=== PATIENT | female | born 1940 | race Caucasian/White ===

== ENCOUNTER 2018-03-12 13:06 | Emergency (ER) | payer MEDICARE, OTHER ==
[~2018-03-12] VITALS: Ht 152.4 cm; Wt 77.6 kg
[2018-03-12 13:39] LABS: BASOPHILS % (AUTO) 0 % (0-10); EOSINOPHILS # (AUTO) 0.3 10^3/uL (0.0-0.3); EOSINOPHILS % (AUTO) 2 % (0-10); HEMATOCRIT 30 % (35-52); LYMPHOCYTES % (AUTO) 21 % (12-44); MEAN CORPUSCULAR HEMOGLOBIN 29 PG (25-34); MEAN CORPUSCULAR HGB CONC 33 G/DL (32-36); MEAN CORPUSCULAR VOLUME 86 FL (80-99); MEAN PLATELET VOLUME 8.7 FL (7.4-10.4); MONOCYTES # (AUTO) 1.2 X 10^3 (0.0-1.0); MONOCYTES % (AUTO) 8 % (0-12); NEUTROPHILS % (AUTO) 69 % (42-75); PLATELET COUNT 374 10^3/uL (130-400); RED CELL DISTRIBUTION WIDTH 13.8 % (10.0-14.5); WHITE BLOOD COUNT 14.5 10^3/uL (4.3-11.0)
[2018-03-12 13:51] LABS: ALANINE AMINOTRANSFERASE 19 U/L (0-55); ALBUMIN 4.1 GM/DL (3.2-4.5); ALKALINE PHOSPHATASE 64 U/L (40-136); BILIRUBIN,TOTAL 0.6 MG/DL (0.1-1.0); BUN/CREATININE RATIO 23; CALCIUM 9.7 MG/DL (8.5-10.1); CARBON DIOXIDE 30 MMOL/L (21-32); CHLORIDE 91 MMOL/L (98-107); CREATININE SERUM 1.47 MG/DL (0.60-1.30); GFR ESTIMATED 35; GLUCOSE 92 MG/DL (70-105); MAGNESIUM 2.2 MG/DL (1.8-2.4); POTASSIUM 4.5 MMOL/L (3.6-5.0); SODIUM 130 MMOL/L (135-145); TOTAL PROTEIN 7.2 GM/DL (6.4-8.2)
[2018-03-12 14:15] LABS: FREE T4 (FREE THYROXINE) 1.12 NG/DL (0.70-1.48)
--- NOTE | 2018-03-12 14:16 | Diagnostic Imaging Report ---
INDICATION: Trouble walking with legs swelling over the past several days. TECHNIQUE: Two view chest at 2:15 PM. CORRELATION STUDY: None. FINDINGS: There are post sternotomy changes. The heart size is borderline enlarged. The vasculature is slightly prominent but without evidence for overt failure. There is an asymmetrically elevated left diaphragm with left basilar lung volume loss. No suggestion for infiltrate. Apparent postoperative change of the medial left lung with a suture line and asymmetric pleural thickening. There are advanced degenerative changes with slightly accentuated thoracic kyphotic curvature. IMPRESSION: 1. Post sternotomy changes. Borderline heart size and vasculature without evidence for overt failure. 2. Asymmetrically elevated left diaphragm with left lung volume loss. Dictated by: Dictated on workstation # [id number]
[2018-03-12 14:21] LABS: BAND NEUTROPHILS 1 %; BASOPHILS % (MANUAL) 0 %; EOSINOPHILS % (MANUAL) 1 %; LYMPHOCYTES % (MANUAL) 26 %; MONOCYTES % (MANUAL) 9 %; NEUTROPHILS % (MANUAL) 63 %; RBC MORPH NORMAL
[2018-03-12 14:26] LABS: BILIRUBIN,URINE NEGATIVE (NEGATIVE); CLARITY,URINE CLEAR; COLOR,URINE YELLOW; GLUCOSE, URINE (UA) NEGATIVE (NEGATIVE); KETONES,URINE NEGATIVE (NEGATIVE); LEUKOCYTE ESTERASE ,URINE 2+ (NEGATIVE); NITRITE,URINE NEGATIVE (NEGATIVE); PH,URINE 6 (5-9); PROTEIN,URINE NEGATIVE (NEGATIVE); UROBILINOGEN,URINE NORMAL (NORMAL)
[2018-03-12 14:37] LABS: BACTERIA,URINE TRACE /HPF; RBC,URINE 0-2 /HPF
--- NOTE | 2018-03-12 15:25 | ED General ---
General Chief Complaint: Back Problems Stated Complaint: FEET SWOLLEN,BACK PAIN Nursing Triage Note: ARRIVED VIA WC TO ROOM 08. COMPLAINS OF CHRONIC BACK PAIN AND SWELLING OF FEET. STATES SHE HAS BEEN TO [facility] SEVERAL TIMES AND THEY DO NOT HELP HER ET SHE WANTS FIXED. 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 She reports being seen in the clinic at Dr. Garcia's office at [facility] in [place] [facility] as well as having multiple ER visits over the past several weeks. She states not much was done after those visits. She sees Dr. Garcia for primary care and Dr. Basurto for cardiology. She has had some chest pain in recent weeks but denies any chest pain today. Allergies and Home Medications Allergies Coded Allergies: No Known Drug Allergies (Unverified , 03/12/18) Home Medications Cephalexin 500 Mg Capsule, 500 MG PO TID Prescribed by: ANNITA TAYLOR on 03/12/18 1610 Patient Home Medication List Home Medication List Reviewed: Yes Review of Systems Constitutional: see HPI EENTM: no symptoms reported Respiratory: no symptoms reported Cardiovascular: see HPI Gastrointestinal: no symptoms reported Musculoskeletal: see HPI Skin: no symptoms reported Psychiatric/Neurological: No Symptoms Reported Hematologic/Lymphatic: No Symptoms Reported Immunological/Allergic: no symptoms reported Past Hrobchu-Ovlsml-Hmpvtj Hx Patient Social History Alcohol Use: Denies Use Recreational Drug Use: No Smoking Status: Former Smoker Recent Foreign Travel: No Contact w/Someone Who Travel: No Recent Infectious Disease Expo: No Recent Hopitalizations: Yes (ER VISITS) Past Medical History Surgeries: Yes CABG, Hysterectomy Respiratory: Yes Emphysema Cardiac: Yes (congestive heart failure) Coronary Artery Disease, Heart Attack, 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 Neurological: Yes (UNKNOWN IF HAD A STROKE) : No 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 Disorders: No Gastrointestinal: No Musculoskeletal: No Endocrine: Yes Diabetes, Insulin dep HEENT: No Cancer: No Psychosocial: No Integumentary: No Physical Exam Vital Signs Vital Signs - First Documented 03/12/18 13:20 Temp 96.7 Pulse 63 Resp 18 B/P (MAP) 126/80 (95) Pulse Ox 98 O2 Delivery Nasal Cannula Capillary Refill : Less Than 3 Seconds General Appearance: No Apparent Distress, WD/WN HEENT: PERRL/EOMI, Normal ENT Inspection, Other (teeth are absent) Neck: Normal Inspection Respiratory: Lungs Clear, Normal Breath Sounds, No Accessory Muscle Use, No Respiratory Distress, Decreased Breath Sounds (diminished in the bases) Cardiovascular: Regular Rate, Rhythm, No Murmur, Other (significant lower extremity edema equal bilaterally) Gastrointestinal: Normal Bowel Sounds, Non Tender, Soft Extremity: Non Tender, Pedal Edema, Swelling Neurologic/Psychiatric: Alert, Oriented x3, No Motor/Sensory Deficits, Normal Mood/Affect, knockdown worker II-XII Norm as Tested Skin: Normal Color, Warm/Dry, Other (chronic skin changes with darkening of the lower legs and feet bilaterally) Progress/Results/Core Measures Suspected Sepsis Recent Fever Within 48 Hours: No Infection Criteria Present: None New/Unexplained Altered Menta: No Sepsis Screen: No Definite Risk SIRS Temperature:96.7 Pulse: 63 Respiratory Rate: 18 Laboratory Tests 03/12/18 10:20: White Blood Count 14.5H Blood Pressure 126 /80 Mean: 95 Laboratory Tests 03/12/18 10:20: Creatinine 1.47H, Platelet Count 374, Total Bilirubin 0.6 Results/Orders Lab Results Laboratory Tests Test 03/12/18 10:00 03/12/18 10:02 03/12/18 10:20 03/12/18 14:20 Range/Units Thyroid Stimulating Hormone (TSH) 1.80 0.35-4.94 UIU/ML Free Thyroxine 1.12 0.70-1.48 NG/DL White Blood Count 14.5 H 4.3-11.0 10^3/uL Red Blood Count 3.50 L 4.35-5.85 10^6/uL Hemoglobin 10.0 L 11.5-16.0 G/DL Hematocrit 30 L 35-52 % Mean Corpuscular Volume 86 80-99 FL Mean Corpuscular Hemoglobin 29 25-34 PG Mean Corpuscular Hemoglobin Concent 33 32-36 G/DL Red Cell Distribution Width 13.8 10.0-14.5 % Platelet Count 374 130-400 10^3/uL Mean Platelet Volume 8.7 7.4-10.4 FL Neutrophils (%) (Auto) 69 42-75 % Lymphocytes (%) (Auto) 21 12-44 % Monocytes (%) (Auto) 8 0-12 % Eosinophils (%) (Auto) 2 0-10 % Basophils (%) (Auto) 0 0-10 % Neutrophils # (Auto) 10.0 H 1.8-7.8 X 10^3 Lymphocytes # (Auto) 3.0 1.0-4.0 X 10^3 Monocytes # (Auto) 1.2 H 0.0-1.0 X 10^3 Eosinophils # (Auto) 0.3 0.0-0.3 10^3/uL Basophils # (Auto) 0.0 0.0-0.1 10^3/uL Neutrophils % (Manual) 63 % Lymphocytes % (Manual) 26 % Monocytes % (Manual) 9 % Eosinophils % (Manual) 1 % Basophils % (Manual) 0 % Band Neutrophils 1 % Blood Morphology Comment NORMAL Sodium Level 130 L 135-145 MMOL/L Potassium Level 4.5 3.6-5.0 MMOL/L Chloride Level 91 L 98-107 MMOL/L Carbon Dioxide Level 30 21-32 MMOL/L Anion Gap 9 5-14 MMOL/L Blood Urea Nitrogen 34 H 7-18 MG/DL Creatinine 1.47 H 0.60-1.30 MG/DL Estimat Glomerular Filtration Rate 35 BUN/Creatinine Ratio 23 Glucose Level 92 70-105 MG/DL Calcium Level 9.7 8.5-10.1 MG/DL Magnesium Level 2.2 1.8-2.4 MG/DL Total Bilirubin 0.6 0.1-1.0 MG/DL Aspartate Amino Transf (AST/SGOT) 22 5-34 U/L Alanine Aminotransferase (ALT/SGPT) 19 0-55 U/L Alkaline Phosphatase 64 40-136 U/L Troponin I < 0.30 <0.30 NG/ML C-Reactive Protein High Sensitivity 2.65 H 0.00-0.50 MG/DL B-Type Natriuretic Peptide 38.6 <100.0 PG/ML Total Protein 7.2 6.4-8.2 GM/DL Albumin 4.1 3.2-4.5 GM/DL TSH [place] Testing 1.80 0.35-4.94 UIU/ML Urine Color YELLOW Urine Clarity CLEAR Urine pH 6 5-9 Urine Specific [place] 1.010 L 1.016-1.022 Urine Protein NEGATIVE NEGATIVE Urine Glucose (UA) NEGATIVE NEGATIVE Urine Ketones NEGATIVE NEGATIVE Urine Nitrite NEGATIVE NEGATIVE Urine Bilirubin NEGATIVE NEGATIVE Urine Urobilinogen NORMAL NORMAL MG/DL Urine Leukocyte Esterase 2+ H NEGATIVE Urine RBC (Auto) 1+ H NEGATIVE Urine RBC 0-2 /HPF Urine WBC 5-10 H /HPF Urine Squamous Epithelial Cells 2-5 /HPF Urine Crystals NONE /LPF Urine Bacteria TRACE /HPF Urine Casts NONE /LPF Urine Mucus NEGATIVE /LPF Urine Culture Indicated YES Test 03/12/18 15:14 03/12/18 16:07 Range/Units Glucometer 58 *L 137 H 70-110 MG/DL My Orders Orders - ANNITA ARAUZ MD BNP (03/12/18 13:32) Cbc With Automated Diff (03/12/18 13:32) Comprehensive Metabolic Panel (03/12/18 13:32) Hs C Reactive Protein (03/12/18 13:32) Magnesium (03/12/18 13:32) Thyroid Analyzer (03/12/18 13:32) Troponin I (03/12/18 13:32) Ua Culture If Indicated (03/12/18 13:32) Chest Pa/Lat (2 View) (03/12/18 13:32) Saline Lock/Iv-Start (03/12/18 13:32) Ekg Tracing (03/12/18 13:32) Monitor-Rhythm Ecg Trace Only (03/12/18 13:32) Thyroid Stimulating Hormone (03/12/18 13:34) Free T4 (Free Thyroxine) (03/12/18 13:34) Manual Differential (03/12/18 10:20) Triiodothryonine T3 Free (03/12/18 13:49) Ct Lumbar Spine Wo (03/12/18 13:51) Urine Culture (03/12/18 14:20) General/Regular (03/12/18 Lunch) Vital Signs/I&O 03/12/18 03/12/18 13:20 16:22 Temp 96.7 Pulse 63 68 Resp 18 18 B/P (MAP) 126/80 (95) 154/73 Pulse Ox 98 99 O2 Delivery Nasal Cannula Room Air Capillary Refill : Less Than 3 Seconds Blood Pressure Mean: 95 Progress Note : Progress Note Patient was thoroughly evaluated including CT of the lumbar spine. I discussed patient's complaints and history with her primary care provider, Dr. Garcia, and Allie [place]. Patient was found to have leukocytosis and urinary tract infection. She was started on Keflex. She was encouraged to follow up closely with her spray gun repairer and her primary care provider. She did have an episode of hypoglycemia which improved after eating. ECG Initial ECG Impression Date: Mar 12, 2018 Initial ECG Impression Time: 13:59 Initial ECG Rate: 61 Initial ECG Rhythm: Normal Sinus Initial ECG Intervals: Normal Initial ECG Impression: Normal Comment Normal sinus rhythm with no ST elevation or depression. No abnormal intervals or axis deviation. Diagnostic Imaging Diagonstic Imaging: Xray Plain Films/CT/US/NM/MRI: chest Comments Chest x-ray viewed by me and report reviewed. See report below: NAME: DARINEL MARTE [facility] REC#: [id number] PT STATUS: REG ER : 1940 PHYSICIAN: ANNITA ARAUZ MD ADMIT DATE: 03/12/18/ER Draft Date of Exam:03/12/18 CHEST PA/LAT (2 VIEW) INDICATION: Trouble walking with legs swelling over the past several days. TECHNIQUE: Two view chest at 2:15 PM. CORRELATION STUDY: None. FINDINGS: There are post sternotomy changes. The heart size is borderline enlarged. The vasculature is slightly prominent but without evidence for overt failure. There is an asymmetrically elevated left diaphragm with left basilar lung volume loss. No suggestion for infiltrate. Apparent postoperative change of the medial left lung with a suture line and asymmetric pleural thickening. There are advanced degenerative changes with slightly accentuated thoracic kyphotic curvature. IMPRESSION: 1. Post sternotomy changes. Borderline heart size and vasculature without evidence for overt failure. 2. Asymmetrically elevated left diaphragm with left lung volume loss. Dictated on workstation # [id number] Dict: 03/12/18 1409 Trans: 03/12/18 1415 [id number] Interpreted by: MARILIN HAN DO Departure Impression Primary Impression: Urinary tract infection Qualified Codes: N39.0 - Urinary tract infection, site not specified Additional Impressions: Chronic edema Lower extremity weakness Qualified Codes: R29.898 - Other symptoms and signs involving the musculoskeletal system Hypoglycemia Disposition: 01 HOME, SELF-CARE Condition: Improved Departure-Patient Inst. Decision time for Depature: 16:08 Referrals: JENNIFER GARCIA DO (PCP) Primary Care Physician Patient Instructions: Urinary Tract Infections in Adults Add. Discharge Instructions: Drink plenty of clear liquids. Continue your medications as previously prescribed. Complete your antibiotics as prescribed. Follow-up with your primary care provider as soon as possible. Review your urine culture results at that time. Also follow up with your spray gun repairer as soon as possible. Consider enrolling in the pulmonary rehabilitation program at [facility]. All discharge instructions reviewed with patient and/or family. Voiced understanding. Scripts Cephalexin (Keflex) 500 Mg Capsule 500 MG PO TID, #30 CAP Prov: ANNITA ARAUZ MD 03/12/18 ANNITA ARAUZ MD Mar 12, 2018 15:25
--- NOTE | 2018-03-12 15:37 | Diagnostic Imaging Report ---
PROCEDURE: CT lumbar spine without contrast. TECHNIQUE: Multiple contiguous axial images were obtained through the lumbar spine without the use of intravenous contrast. Sagittal and coronal reformations were then performed. INDICATION: Low back pain. Lower extremity weakness. COMPARISON: None. FINDINGS: There are five lumbar type vertebral bodies. Normal alignment. Vertebral body heights preserved. No fractures. Moderate diffuse degenerative endplate changes. No high-grade spinal canal narrowing is evident on this noncontrast exam. Disc space height loss and facet arthropathy result in scattered osseous neural foraminal narrowing. No high-grade osseous neural foraminal narrowing in the lumbar spine. Coarse atherosclerotic calcifications including a normal caliber abdominal aorta. The visualized abdominal and pelvic contents are otherwise unremarkable. IMPRESSION: 1. No acute CT findings in the lumbar spine. 2. Moderate degenerative endplate changes and facet arthropathy result in no appreciable high-grade neural impingement in the lumbar spine on this noncontrast exam. Dictated by: Dictated on workstation # [id number]
[2018-03-12] MEDS ORDERED: CEPH-507 PO (16:10)
[2018-03-12 16:22] VITALS: BP 154/73
== END 2018-03-12 16:14 | disposition home or self-care (01) ==
LOC: EDUNIT# 13:06 → ER 13:09
DX: N39.0 Urinary tract infection, site not specified (principal); R60.9 Edema, unspecified; R53.1 Weakness; R29.898 Other symptoms and signs involving the musculoskeletal system; J43.9 Emphysema, unspecified; E11.649 Type 2 diabetes mellitus with hypoglycemia without coma; I25.10 Atherosclerotic heart disease of native coronary artery without angina pectoris; I11.0 Hypertensive heart disease with heart failure; I50.9 Heart failure, unspecified; Z90.710 Acquired absence of both cervix and uterus; Z95.5 Presence of coronary angioplasty implant and graft; Z87.891 Personal history of nicotine dependence
CPT/HCPCS: 36415; 71046; 72131; 80053; 81000; 82962; 83735; 83880; 84439; 84443; 84481; 84484; 85007; 85027; 86141; 87088; 93005

== ENCOUNTER 2019-04-30 13:31 | Inpatient (IN) | payer MEDICARE, MEDICAID | END 2019-05-05 15:05 | disposition home or self-care (01) | LOC: ER 13:31 → 4TH 16:13 ==

== ENCOUNTER 2019-06-04 18:15 | Inpatient (IN) | payer MEDICARE, MEDICAID ==
[~2019-06-04] VITALS: Ht 304.8 cm; Wt 75.4 kg
[~2019-06-04 18:15] MED LIST: AMOX-358 PO; ATOR20TA66 PO; CEPH-507 PO; CHOL10003 PO; CYAN500T2 PO; DIPH25TA29 PO; FLUT16SP22 NS; FURO40TA4 PO; GABA-486 PO; GLIP5TAB13 PO; HYDR-3812 PO; IRON-17 PO; LEVO25TA2 PO; LORA-404 PO; LORA0.5T PO; MAGN400O7 PO; MAGN400T29 PO; MELO7.5T46 PO; POTA10TA10 PO; SENN-145 PO; SERT50TA9 PO; TRAZ-190 PO; UBID1CAP53 PO
[2019-06-04] MEDS ORDERED: LACTATED RINGERS 1,000 ML IV SCH (18:30)
[2019-06-04 18:33] LABS: BASOPHILS % (AUTO) 0 % (0-10); EOSINOPHILS # (AUTO) 0.2 10^3/uL (0.0-0.3); EOSINOPHILS % (AUTO) 2 % (0-10); HEMATOCRIT 28 % (35-52); HEMOGLOBIN 8.7 G/DL (11.5-16.0); LYMPHOCYTES # (AUTO) 3.1 X 10^3 (1.0-4.0); LYMPHOCYTES % (AUTO) 22 % (12-44); MEAN CORPUSCULAR HEMOGLOBIN 26 PG (25-34); MEAN CORPUSCULAR HGB CONC 31 G/DL (32-36); MEAN CORPUSCULAR VOLUME 82 FL (80-99); MEAN PLATELET VOLUME 8.3 FL (7.4-10.4); MONOCYTES # (AUTO) 1.1 X 10^3 (0.0-1.0); MONOCYTES % (AUTO) 8 % (0-12); NEUTROPHILS % (AUTO) 69 % (42-75); PLATELET COUNT 427 10^3/uL (130-400); RED CELL DISTRIBUTION WIDTH 14.9 % (10.0-14.5); WHITE BLOOD COUNT 14.4 10^3/uL (4.3-11.0)
--- OUTSIDE RECORDS SUMMARY | 2019-06-04 18:35 | XMS REPORT | Continuity of Care Document ---
Author Organization Unknown Address Unknown Allergies There is no data. Medications There is no data. Problems There is no data. Procedures There is no data. Results There is no data. Encounters ACCT No. Visit Date/Time Discharge Status Pt. Type Provider Facility Loc./Unit Complaint [id number] 05/27/2019 19:00:00 05/27/2019 23:59:00 DIS Outpatient Josh Navarro
[2019-06-04 18:41] LABS: BILIRUBIN,URINE NEGATIVE (NEGATIVE); CLARITY,URINE SLIGHTLY CLOUDY; COLOR,URINE YELLOW; GLUCOSE, URINE (UA) NEGATIVE (NEGATIVE); KETONES,URINE NEGATIVE (NEGATIVE); LEUKOCYTE ESTERASE ,URINE 3+ (NEGATIVE); NITRITE,URINE NEGATIVE (NEGATIVE); PH,URINE 5 (5-9); PROTEIN,URINE 3+ (NEGATIVE); UROBILINOGEN,URINE NORMAL (NORMAL)
[2019-06-04 18:45] LABS: INR 1.1 (0.8-1.4); PROTHROMBIN TIME PATIENT 14.5 SEC (12.2-14.7)
[2019-06-04] MEDS: CYCLOBENZAPRINE 10 MG (FLEXERIL) TAB PO SCH (18:46)
[2019-06-04 18:52] LABS: ALBUMIN 3.7 GM/DL (3.2-4.5); BILIRUBIN,TOTAL 0.3 MG/DL (0.1-1.0); CALCIUM 9.4 MG/DL (8.5-10.1); CREATININE SERUM 1.02 MG/DL (0.60-1.30); POTASSIUM 4.5 MMOL/L (3.6-5.0); TOTAL PROTEIN 7.9 GM/DL (6.4-8.2)
[2019-06-04 18:54] LABS: BACTERIA,URINE MODERATE /HPF; RBC,URINE TNTC /HPF; WBC,URINE TNTC /HPF
--- NOTE | 2019-06-04 18:56 | NUR ---
report given to MARIAM Dixon
[2019-06-04 19:08] LABS: BAND NEUTROPHILS 1 %; BASOPHILS % (MANUAL) 0 %; EOSINOPHILS % (MANUAL) 3 %; HYPOCHROMASIA SLIGHT; LYMPHOCYTES % (MANUAL) 25 %; MONOCYTES % (MANUAL) 5 %; NEUTROPHILS % (MANUAL) 66 %
--- NOTE | 2019-06-04 19:14 | NUR ---
pt resting on cart, updated on anticipated wait times. denies needs at this time.
--- NOTE | 2019-06-04 19:41 | ED Back Pain ---
General Chief Complaint: Abdominal/GI Problems Stated Complaint: ABD PAIN Nursing Triage Note: Pt to ED via EMS from longterm. Pt c/o abdominal and back pain. halfway reports pt is currently being treated for a UTI. Pt is taking levaquin. halfway reports pt's white count is 17,000. Pt was given to 5mg hydrocodone at approximately 1600. Nursing Sepsis Screen: No Definite Risk Source of Information: Patient, EMS, Shelter Records Exam Limitations: No Limitations History of Present Illness Date Seen by Provider: Jun 04, 2019 Time Seen by Provider: 18:10 Initial Comments Patient presents to ER by EMS with chief complaint that at the longterm she had been treated outpatient for a bladder infection with Levaquin. The culture did apparently demonstrate Levaquin to be an appropriate antibiotic. However she continued to have a fever 2 days ago and labs were drawn showing a white count of 17,000 so she was ordered to come to the ER because she's having intense back spasms of pain and some abdominal discomfort. She is afebrile per EMS. Eating drinking normally. Urinating with moderate discomfort. No blood in the urine. At 1600 she was given 2 hydrocodone tablets unknown strength She did not receive much relief from the spasming in her back. Allergies and Home Medications Allergies Coded Allergies: shrimp (Verified Allergy, Unknown, 04/30/19) Home Medications Amoxicillin/Potassium Clav 1 Each Tablet, 1 EACH PO twice a day Prescribed by: SMITA BATES on 05/05/19 1221 Atorvastatin Calcium 20 Mg Tablet, 20 MG PO DAILY, (Reported) Cholecalciferol (Vitamin D3) 1,000 Unit Tablet, 2 TAB PO DAILY, (Reported) Cyanocobalamin (Vitamin B-12) 500 Mcg Tablet, 500 MCG PO DAILY, (Reported) Diphenhydramine HCl 25 Mg Tablet, 12.5 MG PO HS, (Reported) TAKES 1/2 (25MG) TABLET Fluticasone Propionate 16 Gm [place].susp, 1 SPRAY NS DAILY, (Reported) Furosemide 40 Mg Tablet, 40 MG PO DAILY, (Reported) Gabapentin 100 Mg Capsule, 200 MG PO HS, (Reported) TAKES 2 (100MG) CAPSULES Glipizide 5 Mg Tablet, 2.5 MG PO DAILY, (Reported) TAKES 1/2 (5MG) TABLET Hydrocodone/Acetaminophen 1 Each Tablet, 1-2 TAB PO Q4H PRN for PAIN-MODERATE, (Reported) Iron Ag,Ps/C/Fa6/B12/Zn/SA/Sto 1 Each Tablet, 150 MG PO DAILY, (Reported) Levothyroxine Sodium 25 Mcg Tablet, 25 MCG PO DAILY, (Reported) Lorazepam 0.5 Mg Tablet, 0.5 MG PO DAILY, (Reported) Magnesium Hydroxide 400 Mg/5 Ml Oral.susp, 30 ML PO DAILY PRN for CONSTIPATION- 7TH LINE, (Reported) Magnesium Oxide 400 Mg Tablet, 400 MG PO DAILY, (Reported) Meloxicam 7.5 Mg Tablet, 7.5 MG PO DAILY, (Reported) Potassium Chloride 10 Meq Tablet.er, 10 MEQ PO BID, (Reported) Sennosides/Docusate Sodium 1 Each Tablet, 3 TAB PO DAILY, (Reported) Sertraline HCl 50 Mg Tablet, 50 MG PO DAILY, (Reported) Trazodone HCl 100 Mg Tablet, 100 MG PO HS, (Reported) Ubidecarenone/Vit E Acetate 1 Each Capsule, 100 MG PO DAILY, (Reported) Patient Home Medication List Home Medication List Reviewed: Yes Review of Systems Constitutional: No chills; fever EENTM: No ear discharge, No ear pain Respiratory: No cough, No short of breath Cardiovascular: No chest pain, No edema Gastrointestinal: abdominal pain (Suprapubic), constipation (2 days since the last bowel movement); No diarrhea, No nausea Genitourinary: No discharge; dysuria Musculoskeletal: back pain; No joint pain Skin: No pruritus, No rash Past Qruzyrj-Vjwfpm-Dbdwyg Hx Patient Social History Alcohol Use: Denies Use Recreational Drug Use: No 2nd Hand Smoke Exposure: No Recent Foreign Travel: No Contact w/Someone Who Travel: No Recent Infectious Disease Expo: No Recent Hopitalizations: Yes (ER VISITS) Past Medical History Surgeries: Yes CABG, Hysterectomy Respiratory: Yes Emphysema Cardiac: Yes (congestive heart failure) Coronary Artery Disease, Heart Attack, 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 Neurological: Yes (UNKNOWN IF HAD A STROKE) 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 Disorders: No Gastrointestinal: No Musculoskeletal: No Endocrine: Yes Diabetes, Insulin dep HEENT: No Cancer: No Psychosocial: No Integumentary: No Family Medical History No Pertinent Family Hx Physical Exam Vital Signs Vital Signs - First Documented 06/04/19 18:15 Temp 98.3 Pulse 94 Resp 21 B/P (MAP) 146/74 (98) Pulse Ox 100 O2 Delivery Room Air Capillary Refill : Less Than 3 Seconds Height, Weight, BMI Height: 5'0" Weight: 163lbs. 3.0oz. 73.500038qr; BMI Method:Stated General Appearance: WD/WN, Mild Distress HEENT: PERRL/EOMI, TMs Normal, Moist Mucous Membranes Neck: Full Range of Motion, Normal Inspection Cardiovascular: Regular Rate, Rhythm, No Edema Respiratory: Lungs Clear, Normal Breath Sounds, No Accessory Muscle Use, No Respiratory Distress Peripheral Pulses: 2+ Radial Pulses (R), 2+ Radial Pulses (L) Gastrointestinal: Normal Bowel Sounds, No Organomegaly, Non Tender, Soft Extremity: Normal Capillary Refill, Normal Inspection Neurologic/Psychiatric: Alert, Oriented x3, No Motor/Sensory Deficits Skin: Normal Color, Warm/Dry Progress/Results/Core Measures Results/Orders Lab Results Laboratory Tests Test 06/04/19 18:20 06/04/19 18:31 Range/Units White Blood Count 14.4 H 4.3-11.0 10^3/uL Red Blood Count 3.37 L 4.35-5.85 10^6/uL Hemoglobin 8.7 L 11.5-16.0 G/DL Hematocrit 28 L 35-52 % Mean Corpuscular Volume 82 80-99 FL Mean Corpuscular Hemoglobin 26 25-34 PG Mean Corpuscular Hemoglobin Concent 31 L 32-36 G/DL Red Cell Distribution Width 14.9 H 10.0-14.5 % Platelet Count 427 H 130-400 10^3/uL Mean Platelet Volume 8.3 7.4-10.4 FL Neutrophils (%) (Auto) 69 42-75 % Lymphocytes (%) (Auto) 22 12-44 % Monocytes (%) (Auto) 8 0-12 % Eosinophils (%) (Auto) 2 0-10 % Basophils (%) (Auto) 0 0-10 % Neutrophils # (Auto) 10.0 H 1.8-7.8 X 10^3 Lymphocytes # (Auto) 3.1 1.0-4.0 X 10^3 Monocytes # (Auto) 1.1 H 0.0-1.0 X 10^3 Eosinophils # (Auto) 0.2 0.0-0.3 10^3/uL Basophils # (Auto) 0.0 0.0-0.1 10^3/uL Neutrophils % (Manual) 66 % Lymphocytes % (Manual) 25 % Monocytes % (Manual) 5 % Eosinophils % (Manual) 3 % Basophils % (Manual) 0 % Band Neutrophils 1 % Hypochromasia SLIGHT Prothrombin Time 14.5 12.2-14.7 SEC INR Comment 1.1 0.8-1.4 Sodium Level 125 *L 135-145 MMOL/L Potassium Level 4.5 3.6-5.0 MMOL/L Chloride Level 87 L 98-107 MMOL/L Carbon Dioxide Level 29 21-32 MMOL/L Anion Gap 9 5-14 MMOL/L Blood Urea Nitrogen 17 7-18 MG/DL Creatinine 1.02 0.60-1.30 MG/DL Estimat Glomerular Filtration Rate 53 BUN/Creatinine Ratio 17 Glucose Level 176 H 70-105 MG/DL Lactic Acid Level 0.87 0.50-2.00 MMOL/L Calcium Level 9.4 8.5-10.1 MG/DL Corrected Calcium 9.6 8.5-10.1 MG/DL Magnesium Level 1.8 1.8-2.4 MG/DL Total Bilirubin 0.3 0.1-1.0 MG/DL Aspartate Amino Transf (AST/SGOT) 13 5-34 U/L Alanine Aminotransferase (ALT/SGPT) 7 0-55 U/L Alkaline Phosphatase 73 40-136 U/L Total Protein 7.9 6.4-8.2 GM/DL Albumin 3.7 3.2-4.5 GM/DL Urine Color YELLOW Urine Clarity SLIGHTLY CLOUDY Urine pH 5 5-9 Urine Specific [place] 1.020 1.016-1.022 Urine Protein 3+ H NEGATIVE Urine Glucose (UA) NEGATIVE NEGATIVE Urine Ketones NEGATIVE NEGATIVE Urine Nitrite NEGATIVE NEGATIVE Urine Bilirubin NEGATIVE NEGATIVE Urine Urobilinogen NORMAL NORMAL MG/DL Urine Leukocyte Esterase 3+ H NEGATIVE Urine RBC (Auto) 5+ H NEGATIVE Urine RBC TNTC H /HPF Urine WBC TNTC H /HPF Urine Squamous Epithelial Cells NONE /HPF Urine Crystals NONE /LPF Urine Bacteria MODERATE H /HPF Urine Casts NONE /LPF Urine Mucus NEGATIVE /LPF Urine Culture Indicated YES My Orders Orders - JANN LAKHANI Ceftriaxone For Iv Use (Rocephin For I (06/04/19 19:45) Ct Abd/Pelvis Wo(Kidney Stone) (06/04/19 19:34) Zosyn 4.5 Gm (One Time Dose) (06/04/19 21:00) Medications Given in ED Current Medications Medications Dose Ordered Sig/Geeta Route Start Time Stop Time Status Last Admin Dose Admin Ceftriaxone Sodium 1000 mg/ Sterile Water 10 ml @ 200 mls/hr ONCE ONCE IV 06/04/19 19:45 06/04/19 19:47 DC 06/04/19 19:45 200 MLS/HR Vital Signs/I&O 06/04/19 18:15 Temp 98.3 Pulse 94 Resp 21 B/P (MAP) 146/74 (98) Pulse Ox 100 O2 Delivery Room Air Blood Pressure Mean: 98 Progress Progress Note : Time: 19:41 Progress Note Septic workup. Patient has hyponatremia and copious blood in the urine. She has no history of kidney stones but read the CT scan of the abdomen pelvis looking for kidney stones recapture some blood cultures and start Rocephin. 20 mL/kg based on an ideal body weight of 55 kg is around a liter of saline. On reexamination the patient says her back spasm is much better after the cyclobenzaprine and does not need anything else for the moment. Diagnostic Imaging Diagonstic Imaging: Xray Plain Films/CT/US/NM/MRI: chest Comments Stable chest without infiltrate or acute processes. Left elevated hemidiaphragm. NAME: [facility] REC#: [id number] PT STATUS: REG ER : 1940 PHYSICIAN: ARABELLA NAM APRN ADMIT DATE: 06/04/19/ER Signed Date of Exam:06/04/19 CHEST 1 VIEW, AP/PA ONLY EXAMINATION: Portable chest is compared to a prior study from May 03, 2019. INDICATION: Back pain with elevated white blood cell count. FINDINGS: Patient is status post previous sternotomy and bypass grafting. Heart size is enlarged but unchanged from the prior exam. The central pulmonary vascularity appears appropriate. The right lung appears clear. The left chest demonstrates a large left-sided hernia which obscures the left lung base. There is no pneumothorax. IMPRESSION: 1. 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 The visualized portions of the lungs appear clear. Dictated by: Dictated on workstation # [id number] Dict: 06/04/191918 Trans: 06/04/191941 [id number] Interpreted by: PAUL COTO MD Electronically signed by: PAUL COTO MD 06/04/191941 Reviewed: Reviewed by Me Diagonstic Imaging: CT (noncontrast) Plain Films/CT/US/NM/MRI: abdomen, pelvis Comments NAME: [facility] REC#: [id number] PT STATUS: REG ER : 1940 PHYSICIAN: JANN LAKHANI MD ADMIT DATE: 06/04/19/ER Draft Date of Exam:06/04/19 CT ABD/PELVIS WO(KIDNEY STONE) PROCEDURE: CT urinary tract, rule out kidney stone. TECHNIQUE: Multiple contiguous axial images were obtained through the abdomen and pelvis without the use of intravenous contrast. Auto Exposure Controls were utilized during the CT exam to meet ALARA standards for radiation dose reduction. INDICATION: Abdominal and back pain, elevated white cell count, possible kidney stone. COMPARISON STUDY: CT of the abdomen and pelvis from 04/30/2019 and chest radiograph from earlier today. FINDINGS: Cardiomegaly is present with sternotomy changes. Left diaphragm is elevated with adjacent atelectasis. Elevation of the the left diaphragm is chronic. The spleen is borderline enlarged spanning 11 cm. This is unchanged. The liver, pancreas, adrenal glands, and kidneys appear normal. No renal calculi or hydronephrosis is present. No calculi are seen in the ureters or urinary bladder. Moderate arteriosclerosis is present. Stenosis is seen at the aortic bifurcation. Urinary bladder has a large amount of air within this. This could be from instrumentation or due to a fistula. Adjacent sigmoid colon is markedly inflamed and thickened. Adjacent to this is an area to the left of the dome of the bladder that has air in it. It is unclear if this is a loculated air collection or part of a bowel loop. No free fluid is present. IMPRESSION: There is severe inflammation of the sigmoid colon. Air is present within the urinary bladder and may be a fistula with the bladder. There is also an air collection adjacent to this which could be a tortuous bowel loop versus a loculated collection of air. Dictated on workstation # [id number] Dict: 06/04/192013 Trans: 06/04/192024 [facility] [id number] Interpreted by: TALON HART MD Electronically signed by: Reviewed: Reviewed by Me Departure Communication (Admissions) Time/Spoke to Admitting Phy: 20:53 Discussed the case with Dr. Liu and she would like the patient on stepdown. She agrees with consult Dr. Phan, general surgery and Zosyn. Time/Spoke to Consulting Phy: 20:50 Discussed the case lab imaging findings with Dr. Phan he reviewed the images and agrees with a colovesical fistula and encourage us to use Zosyn. He agrees to consult on the patient. Impression Primary Impression: Urinary tract infection Qualified Codes: N30.01 - Acute cystitis with hematuria Additional Impressions: Hyponatremia Diverticulitis of intestine Qualified Codes: K57.20 - Diverticulitis of large intestine with perforation and abscess without bleeding Colovesical fistula Disposition: ADMITTED INPATIENT Condition: Stable Admissions Decision to Admit Reason: Admit from ER (General) Decision to Admit/Date: Jun 04, 2019 Time/Decision to Admit Time: 19:00 Departure-Patient Inst. Referrals: JENNIFER CULVER DO (PCP/Family) Primary Care Physician JANN LAKHANI Jun 04, 2019 19:41
[2019-06-04] MEDS ORDERED: cefTRIAXone FOR IV USE 1,000 MG in WATER (STERILE) FOR INJECTION 10 ML IV ONE (19:45)
--- NOTE | 2019-06-04 20:25 | Diagnostic Imaging Report ---
PROCEDURE: CT urinary tract, rule out kidney stone. TECHNIQUE: Multiple contiguous axial images were obtained through the abdomen and pelvis without the use of intravenous contrast. Auto Exposure Controls were utilized during the CT exam to meet ALARA standards for radiation dose reduction. INDICATION: Abdominal and back pain, elevated white cell count, possible kidney stone. COMPARISON STUDY: CT of the abdomen and pelvis from 04/30/2019 and chest radiograph from earlier today. FINDINGS: Cardiomegaly is present with sternotomy changes. Left diaphragm is elevated with adjacent atelectasis. Elevation of the the left diaphragm is chronic. The spleen is borderline enlarged spanning 11 cm. This is unchanged. The liver, pancreas, adrenal glands, and kidneys appear normal. No renal calculi or hydronephrosis is present. No calculi are seen in the ureters or urinary bladder. Moderate arteriosclerosis is present. Stenosis is seen at the aortic bifurcation. Urinary bladder has a large amount of air within this. This could be from instrumentation or due to a fistula. Adjacent sigmoid colon is markedly inflamed and thickened. Adjacent to this is an area to the left of the dome of the bladder that has air in it. It is unclear if this is a loculated air collection or part of a bowel loop. No free fluid is present. IMPRESSION: There is severe inflammation of the sigmoid colon. Air is present within the urinary bladder and may be a fistula with the bladder. There is also an air collection adjacent to this which could be a tortuous bowel loop versus a loculated collection of air. Dictated by: Dictated on workstation # [id number]
[2019-06-04] MEDS ORDERED: NS (IVPB) 100 ML ONE (20:53)
[2019-06-04] MEDS ORDERED: PIPERACILLIN/TAZO 4.5 GM VIAL (ZOSYN) IV ONE (20:53)
[2019-06-04] MEDS ORDERED: PIPERACILLIN/TAZOBACTAM (BULK) 4.5 GM in NS (IVPB) 100 ML IV ONE (21:00)
[2019-06-04] MEDS: fentaNYL INJECTION 100 MCG/2 ML AMP IVP PRN (21:10)
--- OUTSIDE RECORDS SUMMARY | 2019-06-04 21:13 | XMS REPORT | Continuity of Care Document ---
Author Organization Unknown Address Unknown Allergies There is no data. Medications There is no data. Problems There is no data. Procedures There is no data. Results There is no data. Encounters ACCT No. Visit Date/Time Discharge Status Pt. Type Provider Facility Loc./Unit Complaint [id number] 05/27/2019 19:00:00 05/27/2019 23:59:00 DIS Outpatient Josh Navarro
--- NOTE | 2019-06-04 21:25 | NUR ---
pt assissted up to [facility] x1 assist.
[2019-06-04 21:45] VITALS: BP 163/93
[2019-06-04 21:48] VITALS: BP 139/66
[2019-06-04 22:00] VITALS: BP 139/66
[2019-06-04] MEDS ORDERED: NS IV 1000 ML 1,000 ML IV SCH ×2 (22:00→22:02)
[2019-06-04] MEDS ORDERED: ONDANSETRON 4 MG/2 ML (SDV) Z0FRAN IV PRN (22:00)
[2019-06-04] MEDS ORDERED: LORazepam 0.5 MG (ATIVAN) TABLET PO PRN (22:00)
[2019-06-04] MEDS ORDERED: ACETAMINOPHEN 325 MG TABLET PO PRN (22:00)
[2019-06-04] MEDS ORDERED: NOREPINEPHRINE 4 MG in NS (IVPB) 250 ML IV SCH (22:02)
[2019-06-04] MEDS ORDERED: NS IV ONE (22:15)
[2019-06-04 23:00] VITALS: BP 144/74
[2019-06-04] MEDS: GABAPENTIN 100 MG (NEURONTIN) CAP PO SCH (23:40)
[2019-06-04] MEDS: traZODone 100 MG (DESYREL) TAB PO SCH (23:41)
[2019-06-04] MEDS: HYDROcodone/APAP 5 MG/325 MG (LORTAB) TAB PO PRN (23:41)
[2019-06-05] VITALS (12 sets, daily range): BP systolic 94–161; BP diastolic 7–96
--- NOTE | 2019-06-05 00:40 | CONSULTATION REPORT ---
DATE OF SERVICE: 06/04/2019 ATTENDING PRIMARY CARE PHYSICIAN: Dr. Joe Garcia. ADMITTING PHYSICIAN: Dr. Javier. HISTORY OF PRESENT ILLNESS: The patient is a 79-year-old female, who presented with pain in the lower abdominal quadrants. She is a resident of an [facility] care facility and has had issues with recurrent bladder infections and has been on Levaquin. She states that she has had worsening pain with radiation towards the back. She did have recent laboratory work, which did show a leukocytosis of 17,000. CT scan was performed, which did show significant sigmoid diverticulitis as well as air within the bladder, most likely consistent with a colovesicular fistula from a chronic diverticulitis. PAST MEDICAL HISTORY: 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, diabetes, congestive heart failure, coronary artery disease, history of myocardial infarction, hypertension, diabetes, emphysema. PAST SURGICAL HISTORY: Coronary artery bypass grafting, total hysterectomy. ALLERGIES: No known drug allergies. MEDICATIONS: Augmentin 875 mg b.i.d., atorvastatin 20 mg daily, vitamin D daily, vitamin B12 daily, fluticasone propionate spray 16 grams daily, furosemide 40 mg daily, gabapentin 200 mg daily, glipizide 5 mg daily, hydrocodone p.r.n., levothyroxine 25 mcg daily, lorazepam 0.5 mg daily, magnesium 400 mg daily, meloxicam 7.5 mg daily, potassium 10 mEq daily, sodium docusate daily, sertraline 50 mg daily, trazodone 100 mg daily. SOCIAL HISTORY: Negative smoke, negative alcohol. FAMILY HISTORY: Noncontributory. REVIEW OF SYSTEMS: Well-nourished female, currently in no acute distress. She is not experiencing any shortness of breath or difficulty breathing. No chest pain, palpitations, diaphoresis. No nausea, vomiting; however, has had recurrent urinary tract infections as well as pain in the lower abdominal quadrants, which has been worse in the past two days. She does have a longstanding history of constipation. She does not report any red blood per rectum nor any dark tarry stools. No fever, chills, no recent inadvertent weight loss. She has had a longstanding history of dysuria. No fever, chills, no recent inadvertent weight loss. All other review of systems negative. PHYSICAL EXAMINATION: VITAL SIGNS: Temperature 98.3, blood pressure 146/74, pulse 94, respirations 20 and pulse ox 100% on room air. CHEST: Distant breath sounds bilaterally with scattered expiratory wheezes. HEART: Regular, no murmurs. EXTREMITIES: No lower extremity edema, negative Homans sign. HEENT: No scleral icterus. NECK: No cervical lymphadenopathy. ABDOMEN: Soft, nondistended. There is pain in the lower abdominal quadrants upon palpation. SKIN: Warm, dry. LABORATORY DATA: WBC 14.4, hemoglobin 8.7, hematocrit 28, platelets 427, BUN 17, creatinine 1.02. Liver function enzymes normal. ASSESSMENT AND PLAN: A 79-year-old female with acute on chronic sigmoid diverticulitis with a chronic colovesicular fistula. We will treat her conservatively now with a bowel rest and IV antibiotics. Ideally, we would like to have the majority of the inflammation resolved and then proceed with surgery, which will encompass sigmoid colon resection, resection of colovesicular fistula with a primary repair of the bladder and low anterior resection and anastomosis in one stage. For now, we will proceed with continued conservative therapy with clear liquid diet and Zosyn IV. Job ID: [id number] DocumentID: [id number] Dictated Date: 06/04/2019 21:51:11 Early Childhood Associate Teacher Date: 06/05/2019 00:40:23 Dictated By: MINNIE BREEN MD MTDD
[2019-06-05] MEDS ORDERED: PIPERACILLIN/TAZO 4.5 GM VIAL (ZOSYN) IV ONE (00:44)
[2019-06-05] MEDS: fentaNYL INJECTION 100 MCG/2 ML AMP IVP PRN (03:16)
[2019-06-05 03:27] LABS: BASOPHILS % (AUTO) 0 % (0-10); EOSINOPHILS # (AUTO) 0.3 10^3/uL (0.0-0.3); EOSINOPHILS % (AUTO) 2 % (0-10); HEMATOCRIT 25 % (35-52); HEMOGLOBIN 7.8 G/DL (11.5-16.0); LYMPHOCYTES # (AUTO) 3.4 X 10^3 (1.0-4.0); LYMPHOCYTES % (AUTO) 21 % (12-44); MEAN CORPUSCULAR HEMOGLOBIN 25 PG (25-34); MEAN CORPUSCULAR HGB CONC 31 G/DL (32-36); MEAN CORPUSCULAR VOLUME 83 FL (80-99); MEAN PLATELET VOLUME 8.3 FL (7.4-10.4); MONOCYTES # (AUTO) 1.6 X 10^3 (0.0-1.0); MONOCYTES % (AUTO) 10 % (0-12); NEUTROPHILS # (AUTO) 11.1 X 10^3 (1.8-7.8); NEUTROPHILS % (AUTO) 68 % (42-75); PLATELET COUNT 387 10^3/uL (130-400); RED CELL DISTRIBUTION WIDTH 14.9 % (10.0-14.5); WHITE BLOOD COUNT 16.3 10^3/uL (4.3-11.0)
[2019-06-05 04:03] LABS: ALANINE AMINOTRANSFERASE 8 U/L (0-55); ALBUMIN 3.1 GM/DL (3.2-4.5); ALKALINE PHOSPHATASE 59 U/L (40-136); BILIRUBIN,TOTAL 0.2 MG/DL (0.1-1.0); BUN/CREATININE RATIO 16; CALCIUM 9.2 MG/DL (8.5-10.1); CARBON DIOXIDE 25 MMOL/L (21-32); CHLORIDE 94 MMOL/L (98-107); CREATININE SERUM 0.88 MG/DL (0.60-1.30); GFR ESTIMATED > 60; GLUCOSE 143 MG/DL (70-105); MAGNESIUM 1.8 MG/DL (1.8-2.4); PHOSPHORUS 3.8 MG/DL (2.3-4.7); POTASSIUM 4.5 MMOL/L (3.6-5.0); SODIUM 129 MMOL/L (135-145); TOTAL PROTEIN 6.3 GM/DL (6.4-8.2)
--- NOTE | 2019-06-05 05:30 | Pulmonary Consultation ---
History of Present Illness History of Present Illness Date of Consultation 06/05/19 05:25 Date of Admission Allergies and Home Medications Allergies Coded Allergies: shrimp (Verified Allergy, Unknown, 04/30/19) Home Medications Amoxicillin/Potassium Clav 1 Each Tablet, 1 EACH PO twice a day Prescribed by: SMITA BATES on 05/05/19 1221 Atorvastatin Calcium 20 Mg Tablet, 20 MG PO DAILY, (Reported) Cholecalciferol (Vitamin D3) 1,000 Unit Tablet, 2 TAB PO DAILY, (Reported) Cyanocobalamin (Vitamin B-12) 500 Mcg Tablet, 500 MCG PO DAILY, (Reported) Diphenhydramine HCl 25 Mg Tablet, 12.5 MG PO HS, (Reported) TAKES 1/2 (25MG) TABLET Fluticasone Propionate 16 Gm [place].susp, 1 SPRAY NS DAILY, (Reported) Furosemide 40 Mg Tablet, 40 MG PO DAILY, (Reported) Gabapentin 100 Mg Capsule, 200 MG PO HS, (Reported) TAKES 2 (100MG) CAPSULES Glipizide 5 Mg Tablet, 2.5 MG PO DAILY, (Reported) TAKES 1/2 (5MG) TABLET Hydrocodone/Acetaminophen 1 Each Tablet, 1-2 TAB PO Q4H PRN for PAIN-MODERATE, (Reported) Iron Ag,Ps/C/Fa6/B12/Zn/SA/Sto 1 Each Tablet, 150 MG PO DAILY, (Reported) Levothyroxine Sodium 25 Mcg Tablet, 25 MCG PO DAILY, (Reported) Lorazepam 0.5 Mg Tablet, 0.5 MG PO DAILY, (Reported) Magnesium Hydroxide 400 Mg/5 Ml Oral.susp, 30 ML PO DAILY PRN for CONSTIPATION- 7TH LINE, (Reported) Magnesium Oxide 400 Mg Tablet, 400 MG PO DAILY, (Reported) Meloxicam 7.5 Mg Tablet, 7.5 MG PO DAILY, (Reported) Potassium Chloride 10 Meq Tablet.er, 10 MEQ PO BID, (Reported) Sennosides/Docusate Sodium 1 Each Tablet, 3 TAB PO DAILY, (Reported) Sertraline HCl 50 Mg Tablet, 50 MG PO DAILY, (Reported) Trazodone HCl 100 Mg Tablet, 100 MG PO HS, (Reported) Ubidecarenone/Vit E Acetate 1 Each Capsule, 100 MG PO DAILY, (Reported) Past [id number]-Jgharb Hx Patient Social History Alcohol Use: Denies Use Recreational Drug Use: No 2nd Hand Smoke Exposure: No Recent Foreign Travel: No Contact w/Someone Who Travel: No Recent Infectious Disease Expo: No Recent Hopitalizations: Yes (2 months ago) Immunizations Up To Date Date of Pneumonia Vaccine: Jun 04, 2016 Seasonal Allergies Seasonal Allergies: No Past Medical History Surgeries: Yes CABG, Hysterectomy Respiratory: Yes (COPD) COPD Currently Using CPAP: No Currently Using BIPAP: No Cardiac: Yes Coronary Artery Disease, Heart Attack, 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 Neurological: No 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 Disorders: No Genitourinary: Yes Renal Failure Gastrointestinal: Yes (Diverticulitis) Diverticulosis Musculoskeletal: No Endocrine: No Diabetes, Insulin dep HEENT: No Cancer: No Psychosocial: Yes Sleep Difficulties, Anxiety, Depression Integumentary: No Blood Disorders: No Adverse Reaction/Blood Tranf: No Family Medical History Alzheimer's disease Cardiovascular disease 19 FATHER 19 MOTHER Diabetes mellitus 19 MOTHER No Pertinent Family Hx Sepsis Event Evaluation Height, Weight, BMI Height: 5'60.00" Weight: 167lbs. 8.0oz. 75.449971gb; 8.2 BMI Method:Stated Exam Exam Vital Signs Date Time Temp Pulse Resp B/P (MAP) Pulse Ox O2 Delivery O2 Flow Rate FiO2 06/05/19 05:00 86 9 132/70 (90) 100 Nasal Cannula 2.00 06/05/19 04:24 100 Nasal Cannula 2.00 06/05/19 04:00 87 13 113/56 (75) 100 Nasal Cannula 2.00 06/05/19 03:15 161/62 (95) 06/05/19 03:00 98 9 100 Nasal Cannula 2.00 06/05/19 02:00 84 12 94/55 (68) 100 Nasal Cannula 2.00 06/05/19 01:00 90 19 117/65 (82) 100 Nasal Cannula 2.00 06/05/19 01:00 90 06/05/19 00:09 100 Nasal Cannula 2.00 06/05/19 00:00 93 12 145/79 (101) 100 Nasal Cannula 2.00 06/04/19 23:41 97.0 06/04/19 23:00 95 17 144/74 (97) 100 Nasal Cannula 2.00 06/04/19 22:45 95 17 100 Nasal Cannula 2.00 06/04/19 22:30 93 11 100 Nasal Cannula 2.00 06/04/19 22:18 96 06/04/19 22:15 95 15 99 Nasal Cannula 2.00 06/04/19 22:06 100 Nasal Cannula 2.00 06/04/19 22:00 96 18 139/66 (90) 99 Nasal Cannula 2.00 06/04/19 21:48 97.0 95 20 139/66 100 Nasal Cannula 2.00 06/04/19 21:45 98 28 163/93 (116) 98 Nasal Cannula 2.00 06/04/19 21:41 Nasal Cannula 3.00 06/04/19 21:15 98.8 96 12 148/63 (91) 98 Nasal Cannula 3.00 06/04/19 18:15 98.3 94 21 146/74 (98) 100 Room Air I & O 06/05/19 07:00 Intake Total 1230 ml Output Total 400 ml Balance 830 ml Height & Weight Height: 5'60.00" Weight: 167lbs. 8.0oz. 75.506193wr; 8.2 BMI Method:Stated General Appearance: WD/WN, Mild Distress HEENT: PERRL/EOMI, TMs Normal, Moist Mucous Membranes Neck: Full Range of Motion, Normal Inspection Respiratory: Lungs Clear, Normal Breath Sounds, No Accessory Muscle Use, No Respiratory Distress Cardiovascular: Regular Rate, Rhythm, No Edema Capillary Refill: Less Than 3 Seconds Peripheral Pulses: 2+ Radial Pulses (R), 2+ Radial Pulses (L) Extremity: Normal Capillary Refill, Normal Inspection Neurologic/Psychiatric: Alert, Oriented x3, No Motor/Sensory Deficits Skin: Normal Color, Warm/Dry Results Lab Laboratory Tests 06/04/19 18:20 06/05/19 02:58 Assessment/Plan Assessment/Plan UTI with sepsis secondary to colovesicular fistula -Not severe sepsis -Will decrease IVF to 50cc/hr. Pt did get 30cc/kg of IVF -Continue Zosyn -[place] culture -Surgery following -IVF Hyponatremia -Monitor Anemia - moniotor Diverticulosis CAD with CABG x 3 Oxygen dependent COPD 2 liters/min -AMANDA Dean DO Jun 05, 2019 05:30
[2019-06-05] MEDS: LEVOTHYROXINE 25 MCG (LEVOTHROID) TAB PO SCH (06:35)
[2019-06-05] MEDS: HYDROcodone/APAP 5 MG/325 MG (LORTAB) TAB PO PRN ×3 (06:35→21:00)
[2019-06-05] MEDS: inSUlin ASPART (NovoLOG) 1 UNIT/0.01 ML (CHARGE PER UNIT) SC SCH ×4 (06:36→21:08)
[2019-06-05] MEDS: PIPERACILLIN/TAZOBACTAM (BULK) 4.5 GM in NS (IVPB) 100 ML IV SCH ×3 (06:36→21:02)
[2019-06-05] MEDS: lisINopril 5 MG (PRINIVIL) TABLET PO SCH (08:03)
--- NOTE | 2019-06-05 08:07 | Diagnostic Imaging Report ---
INDICATION: Dyspnea. COMPARISON: 06/04/2019. FINDINGS: Left basilar pulmonary opacities are unchanged. Stable asymmetric elevation left hemidiaphragm. No pneumothorax. Potential trace left pleural effusion versus blunting of the lateral left costophrenic angle from pleural thickening. Stable enlargement of cardiac silhouette status post CABG. IMPRESSION: 1. No significant change in left basilar pulmonary opacities likely on the basis of atelectasis and/or small left pleural effusion. Dictated by: Dictated on workstation # [id number]
[2019-06-05] MEDS ORDERED: TIZA2TAB3 PO (09:17)
[2019-06-05] MEDS ORDERED: ONDN4T PO (09:17)
[2019-06-05] MEDS ORDERED: CETI10TA20 PO (09:17)
[2019-06-05] MEDS ORDERED: LISI-556 PO (09:17)
[2019-06-05] MEDS ORDERED: LEVO750T9 PO (09:17)
[2019-06-05] MEDS ORDERED: MENT118G TP (09:17)
--- NOTE | 2019-06-05 09:17 | NUR ---
UPDATED MED REC WITH ORDER REVIEW REPORT FROM [facility]
--- NOTE | 2019-06-05 09:52 | History & Physical-Hospitalist ---
History of Present Illness HPI/Chief Complaint Chief complaint: UTI with sepsis History of present illness: This is a 79-year-old white female of Dr. Navarro/Baltazar Ch at placed on antibiotics for UTI but continued to have fever and elevated white count requiring ER evaluation and subsequent admission for sepsis. She has been permanently placed in a retirement due to severe debility. 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 Dr. Phan is been consulted patient will be maintained on IV antibiotics to treat the sepsis along with supportive care and decision for surgical management will be at Dr. Phan's discretion. Source: patient, RN/MD, old records Exam Limitations: no limitations Date Seen 06/05/19 Time Seen by a Provider: 10:15 Attending Physician Shreya Heath DO PCP Joe Garcia DO Referring Physician Date of Admission Jun 04, 2019 at 19:00 Home Medications & Allergies Home Medications Reviewed patient Home Medication Reconciliation performed by pharmacy medication reconciliations brass instrument repair technician and/or nursing. Patients Allergies have been reviewed. Allergies Allergies Coded Allergies shrimp (Verified Allergy, Unknown, 04/30/19) Past Rjclwiz-Eloutf-Ffxreo Hx Past Med/Social Hx: Reviewed Nursing Past Med/Soc Hx, Reviewed and Corrections made Patient Social History Marrital Status: single Employed/Student: retired Alcohol Use: Denies Use Recreational Drug Use: No Smoking Status: Never a Smoker 2nd Hand Smoke Exposure: No Physical Abuse Screen: No Sexual Abuse: No Recent Foreign Travel: No Contact w/other who traveled: No Recent Hopitalizations: Yes (2 months ago) Recent Infectious Disease Expo: No Immunizations Up To Date Date of Pneumonia Vaccine: Jun 04, 2016 Seasonal Allergies Seasonal Allergies: No Past Medical History Surgeries: CABG, Hysterectomy Currently Using CPAP: No Currently Using BIPAP: No Cardiac: Coronary Artery Disease, Heart Attack, 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 : No 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: No Genitourinary: Renal Failure Gastrointestinal: Diverticulosis Endocrine: Diabetes, Insulin dep Psychosocial: Sleep Difficulties, Anxiety, Depression History of Blood Disorders: No Adverse Reaction to Blood Corona: No Family History Alzheimer's disease Cardiovascular disease 19 FATHER 19 MOTHER Diabetes mellitus 19 MOTHER No Pertinent Family Hx Review of Systems Constitutional: see HPI, dizziness, fever, malaise, weakness EENTM: no symptoms reported Respiratory: no symptoms reported Cardiovascular: no symptoms reported Gastrointestinal: abdominal pain (LLQ) Genitourinary: decreased output, dysuria, frequency, hematuria Musculoskeletal: back pain Skin: no symptoms reported Psychiatric/Neurological: No Symptoms Reported All Other Systems Reviewed Negative Unless Noted: Yes Physical Exam Physical Exam Vital Signs Vital Signs - First Documented 06/04/19 06/04/19 18:15 21:15 Temp 98.3 Pulse 94 Resp 21 B/P (MAP) 146/74 (98) Pulse Ox 100 O2 Delivery Room Air O2 Flow Rate 3.00 Capillary Refill : Less Than 3 Seconds Height, Weight, BMI Height: 5'60.00" Weight: 165lbs. 7.0oz. [id number]; 8.2 BMI Method:Stated General Appearance: No Apparent Distress, WD/WN, Anxious, Chronically ill Eyes: Right Eye Normal Inspection, Right Eye PERRL HEENT: PERRL/EOMI, Normal ENT Inspection, Pharynx Normal, Moist Mucous Membran es Neck: Full Range of Motion, Normal Inspection, Non Tender Respiratory: Chest Non Tender, Lungs Clear, Normal Breath Sounds, No Accessory Muscle Use, No Respiratory Distress Cardiovascular: Regular Rate, Rhythm, No Edema, No Gallop, No JVD, No Murmur, Normal Peripheral Pulses Gastrointestinal: Normal Bowel Sounds, No Organomegaly, No Pulsatile Mass, Non Tender, Soft Back: Normal Inspection, No CVA Tenderness, No Vertebral Tenderness Extremity: Normal Capillary Refill, Normal Inspection, Normal Range of Motion, Non Tender, No Calf Tenderness, No Pedal Edema Neurologic/Psychiatric: Alert, Oriented x3, No Motor/Sensory Deficits, Normal Mood/Affect Skin: Normal Color, Warm/Dry Lymphatic: No Adenopathy Results Results/Procedures Labs Laboratory Tests 06/04/19 18:20 06/05/19 02:58 Patient resulted labs reviewed. Assessment/Plan Admission Diagnosis Assessment: Sepsis Leukocytosis Fever Colovesicular fistula UTI Chronic debility CAD Diabetes mellitus 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 Plan: Appreciate general surgery consultation IV antibiotics IV fluids Supportive care Prognosis guarded Admission Status: Inpatient Order (span 2 midnights) Reason for Inpatient Admission: Fistula causing UTI will require 3 days Diagnosis/Problems Diagnosis/Problems (1) Sepsis Status: Acute Qualifiers: Sepsis type: sepsis due to unspecified organism Qualified Codes: A41.9 - Sepsis, unspecified organism (2) Urinary tract infection Status: Acute Qualifiers: Urinary tract infection type: acute cystitis Hematuria presence: with hematuria Qualified Codes: N30.01 - Acute cystitis with hematuria (3) Colovesical fistula Status: Acute (4) Diverticulitis of intestine Status: Acute Qualifiers: Diverticulitis site: large intestine Diverticulitis bleeding: without blee ding Diverticulitis complication: with perforation and abscess Qualified Codes: K57.20 - Diverticulitis of large intestine with perforation and abscess without bleeding (5) Hyponatremia Status: Acute (6) Chronic edema Status: Chronic Clinical Quality Measures DVT/VTE Risk/Contraindication: Risk Factor Score Per Nursin RFS Level Per Nursing on Admit: 4+=Very High SHREYA HEATH DO Jun 05, 2019 09:52
--- NOTE | 2019-06-05 11:38 | Progress Note ---
Subjective Date Seen by a Provider: Jun 05, 2019 Time Seen by a Provider: 10:00 Subjective/Events-last exam doing ok. urinating well(cloudy). no fever/chills. tolerating clears. Focused Exam Lactate Level 06/04/19 18:20: Lactic Acid Level 0.87 Objective Exam Vital Signs Date Time Temp Pulse Resp B/P (MAP) Pulse Ox O2 Delivery O2 Flow Rate FiO2 06/05/19 09:00 98 Nasal Cannula 2.00 06/05/19 08:00 98 Nasal Cannula 2.00 06/05/19 07:30 90 9 139/61 (87) 100 Nasal Cannula 2.00 06/05/19 07:00 89 06/05/19 06:00 86 13 137/66 (89) 100 Nasal Cannula 2.00 06/05/19 05:00 86 9 132/70 (90) 100 Nasal Cannula 2.00 06/05/19 04:24 100 Nasal Cannula 2.00 06/05/19 04:00 87 13 113/56 (75) 100 Nasal Cannula 2.00 06/05/19 03:15 161/62 (95) 06/05/19 03:00 98 9 100 Nasal Cannula 2.00 06/05/19 02:00 84 12 94/55 (68) 100 Nasal Cannula 2.00 06/05/19 01:00 90 19 117/65 (82) 100 Nasal Cannula 2.00 06/05/19 01:00 90 06/05/19 00:09 100 Nasal Cannula 2.00 06/05/19 00:00 93 12 145/79 (101) 100 Nasal Cannula 2.00 06/04/19 23:41 97.0 06/04/19 23:00 95 17 144/74 (97) 100 Nasal Cannula 2.00 06/04/19 22:45 95 17 100 Nasal Cannula 2.00 06/04/19 22:30 93 11 100 Nasal Cannula 2.00 06/04/19 22:18 96 06/04/19 22:15 95 15 99 Nasal Cannula 2.00 06/04/19 22:06 100 Nasal Cannula 2.00 06/04/19 22:00 96 18 139/66 (90) 99 Nasal Cannula 2.00 06/04/19 21:48 97.0 95 20 139/66 100 Nasal Cannula 2.00 06/04/19 21:45 98 28 163/93 (116) 98 Nasal Cannula 2.00 06/04/19 21:41 Nasal Cannula 3.00 06/04/19 21:15 98.8 96 12 148/63 (91) 98 Nasal Cannula 3.00 06/04/19 18:15 98.3 94 21 146/74 (98) 100 Room Air I & O 06/05/19 06:59 Intake Total 1430 ml Output Total 800 ml Balance 630 ml Capillary Refill : Less Than 3 Seconds General Appearance: No Apparent Distress HEENT: PERRL/EOMI Neck: Full Range of Motion Respiratory: Decreased Breath Sounds Cardiovascular: Regular Rate, Rhythm Gastrointestinal: normal bowel sounds, soft, tenderness, other (palp mass LLQ) Extremity: Normal Capillary Refill Neurologic/Psychiatric: Alert, Oriented x3 Skin: Normal Color Lymphatic: No Adenopathy Results Lab Laboratory Tests 06/04/19 18:20: White Blood Count 14.4H, Red Blood Count 3.37L, Hemoglobin 8.7L, Hematocrit 28L, Mean Corpuscular Volume 82, Mean Corpuscular Hemoglobin 26, Mean Corpuscular Hemoglobin Concent 31L, Red Cell Distribution Width 14.9H, Platelet Count 427H, Mean Platelet Volume 8.3, Neutrophils (%) (Auto) 69, Lymphocytes (%) (Auto) 22, Monocytes (%) (Auto) 8, Eosinophils (%) (Auto) 2, Basophils (%) (Auto) 0, Neutrophils # (Auto) 10.0H, Lymphocytes # (Auto) 3.1, Monocytes # (Auto) 1.1H, Eosinophils # (Auto) 0.2, Basophils # (Auto) 0.0, Neutrophils % (Manual) 66, Lymphocytes % (Manual) 25, Monocytes % (Manual) 5, Eosinophils % (Manual) 3, Basophils % (Manual) 0, Band Neutrophils 1, Hypochromasia SLIGHT, Prothrombin Time 14.5, INR Comment 1.1, Sodium Level 125*L, Potassium Level 4.5, Chloride Level 87L, Carbon Dioxide Level 29, Anion Gap 9, Blood Urea Nitrogen 17, Creatinine 1.02, Estimat Glomerular Filtration Rate 53, BUN/Creatinine Ratio 17, Glucose Level 176H, Lactic Acid Level 0.87, Calcium Level 9.4, Corrected Calcium 9.6, Magnesium Level 1.8, Total Bilirubin 0.3, Aspartate Amino Transf (AST/SGOT) 13, Alanine Aminotransferase (ALT/SGPT) 7, Alkaline Phosphatase 73, Total Protein 7.9, Albumin 3.7 06/04/19 18:31: Urine Color YELLOW, Urine Clarity SLIGHTLY CLOUDY, Urine pH 5, Urine Specific Beaver 1.020, Urine Protein 3+H, Urine Glucose (UA) NEGATIVE, Urine Ketones NEGATIVE, Urine Nitrite NEGATIVE, Urine Bilirubin NEGATIVE, Urine Urobilinogen NORMAL, Urine Leukocyte Esterase 3+H, Urine RBC (Auto) 5+H, Urine RBC TNTCH, Urine WBC TNTCH, Urine Squamous Epithelial Cells NONE, Urine Crystals NONE, Urine Bacteria MODERATEH, Urine Casts NONE, Urine Mucus NEGATIVE, Urine Culture Indicated YES 06/04/19 21:41: Glucometer 214H 06/05/19 02:58: White Blood Count 16.3H, Red Blood Count 3.07L, Hemoglobin 7.8L, Hematocrit 25L, Mean Corpuscular Volume 83, Mean Corpuscular Hemoglobin 25, Mean Corpuscular Hemoglobin Concent 31L, Red Cell Distribution Width 14.9H, Platelet Count 387, Mean Platelet Volume 8.3, Neutrophils (%) (Auto) 68, Lymphocytes (%) (Auto) 21, Monocytes (%) (Auto) 10, Eosinophils (%) (Auto) 2, Basophils (%) (Auto) 0, Neutrophils # (Auto) 11.1H, Lymphocytes # (Auto) 3.4, Monocytes # (Auto) 1.6H, Eosinophils # (Auto) 0.3, Basophils # (Auto) 0.0, Sodium Level 129L, Potassium Level 4.5, Chloride Level 94L, Carbon Dioxide Level 25, Anion Gap 10, Blood Urea Nitrogen 14, Creatinine 0.88, Estimat Glomerular Filtration Rate > 60, BUN/Creatinine Ratio 16, Glucose Level 143H, Calcium Level 9.2, Corrected Calcium 9.9, Magnesium Level 1.8, Total Bilirubin 0.2, Aspartate Amino Transf (AST/SGOT) 12, Alanine Aminotransferase (ALT/SGPT) 8, Alkaline Phosphatase 59, Total Protein 6.3L, Albumin 3.1L, Phosphorus Level 3.8 06/05/19 06:29: Glucometer 140H 06/05/19 11:11: Glucometer 154H Assessment/Plan Assessment/Plan Assess & Plan/Chief Complaint diverticulitis with colovesicular fistula. cont IV abx. will order PICC. wick for bladder decompression. start stool softeners, gentle laxatives for sigificant constipated stools. Clinical Quality Measures DVT/VTE Risk/Contraindication: Risk Factor Score Per Nursin RFS Level Per Nursing on Admit: 4+=Very High MINNIE BREEN MD Jun 05, 2019 11:38
[2019-06-05] MEDS: KETOROLAC 15 MG/ML VIAL IV PRN (14:07)
[2019-06-05] MEDS: DOCUSATE SODIUM 100 MG (COLACE) CAP PO SCH (20:59)
[2019-06-05] MEDS: GABAPENTIN 100 MG (NEURONTIN) CAP PO SCH (21:00)
[2019-06-05] MEDS: traZODone 100 MG (DESYREL) TAB PO SCH (21:00)
[2019-06-05] MEDS: POLYETHYLENE GLYCOL 17 GM (MIRALAX) PACK PO SCH (21:01)
[2019-06-05] MEDS: NS IV 1000 ML 1,000 ML IV SCH (21:57)
[2019-06-06] VITALS (7 sets, daily range): BP systolic 117–165; BP diastolic 63–76
[2019-06-06] MEDS: PIPERACILLIN/TAZOBACTAM (BULK) 4.5 GM in NS (IVPB) 100 ML IV SCH ×3 (03:29→18:56)
[2019-06-06 03:38] LABS: BASOPHILS % (AUTO) 1 % (0-10); EOSINOPHILS # (AUTO) 0.3 10^3/uL (0.0-0.3); EOSINOPHILS % (AUTO) 4 % (0-10); HEMATOCRIT 25 % (35-52); HEMOGLOBIN 7.6 G/DL (11.5-16.0); LYMPHOCYTES # (AUTO) 2.5 X 10^3 (1.0-4.0); LYMPHOCYTES % (AUTO) 31 % (12-44); MEAN CORPUSCULAR HEMOGLOBIN 26 PG (25-34); MEAN CORPUSCULAR HGB CONC 31 G/DL (32-36); MEAN CORPUSCULAR VOLUME 84 FL (80-99); MEAN PLATELET VOLUME 8.2 FL (7.4-10.4); MONOCYTES # (AUTO) 0.6 X 10^3 (0.0-1.0); MONOCYTES % (AUTO) 8 % (0-12); NEUTROPHILS # (AUTO) 4.7 X 10^3 (1.8-7.8); NEUTROPHILS % (AUTO) 57 % (42-75); PLATELET COUNT 358 10^3/uL (130-400); RED CELL DISTRIBUTION WIDTH 14.8 % (10.0-14.5); WHITE BLOOD COUNT 8.2 10^3/uL (4.3-11.0)
[2019-06-06 04:00] LABS: ALANINE AMINOTRANSFERASE < 6 U/L (0-55); ALBUMIN 2.8 GM/DL (3.2-4.5); ALKALINE PHOSPHATASE 47 U/L (40-136); BILIRUBIN,TOTAL 0.2 MG/DL (0.1-1.0); BUN/CREATININE RATIO 16; CALCIUM 8.4 MG/DL (8.5-10.1); CARBON DIOXIDE 28 MMOL/L (21-32); CHLORIDE 99 MMOL/L (98-107); CREATININE SERUM 0.73 MG/DL (0.60-1.30); GFR ESTIMATED > 60; GLUCOSE 102 MG/DL (70-105); MAGNESIUM 1.8 MG/DL (1.8-2.4); PHOSPHORUS 3.4 MG/DL (2.3-4.7); POTASSIUM 4.7 MMOL/L (3.6-5.0); SODIUM 134 MMOL/L (135-145); TOTAL PROTEIN 5.8 GM/DL (6.4-8.2)
[2019-06-06] MEDS: inSUlin ASPART (NovoLOG) 1 UNIT/0.01 ML (CHARGE PER UNIT) SC SCH ×4 (04:16→21:01)
--- NOTE | 2019-06-06 06:12 | Pulmonary Progress Note ---
Subjective Time Seen by a Provider: 06:24 Subjective/Events-last exam No complications noted. Sepsis Event Evaluation Height, Weight, BMI Height: 5'60.00" Weight: 165lbs. 7.0oz. [id number]; 8.2 BMI Method:Stated Focused Exam Lactate Level 06/04/19 18:20: Lactic Acid Level 0.87 Exam Exam Vital Signs Date Time Temp Pulse Resp B/P (MAP) Pulse Ox O2 Delivery O2 Flow Rate FiO2 06/06/19 04:00 100 Nasal Cannula 2.00 06/06/19 01:00 86 06/06/19 00:27 97.4 87 20 126/67 (86) 100 Nasal Cannula 2.00 06/06/19 00:00 100 Nasal Cannula 2.00 06/05/19 21:00 100 Nasal Cannula 2.00 06/05/19 20:58 97.8 100 17 160/96 (117) 100 Nasal Cannula 2.00 06/05/19 20:00 98 Nasal Cannula 2.00 06/05/19 20:00 99 13 /7 100 Nasal Cannula 2.00 06/05/19 19:00 103 06/05/19 16:00 93 9 154/71 (98) 100 Nasal Cannula 2.00 06/05/19 16:00 100 Nasal Cannula 2.00 06/05/19 14:11 Nasal Cannula 3.00 06/05/19 13:00 96 06/05/19 12:00 86 11 128/64 (85) 100 Nasal Cannula 2.00 06/05/19 12:00 100 Nasal Cannula 2.00 06/05/19 09:00 98 Nasal Cannula 2.00 06/05/19 08:00 98 Nasal Cannula 2.00 06/05/19 07:30 90 9 139/61 (87) 100 Nasal Cannula 2.00 06/05/19 07:00 89 I & O 06/06/19 07:00 Intake Total 360 ml Output Total 1350 ml Balance -990 ml Height & Weight Height: 5'60.00" Weight: 165lbs. 7.0oz. 75.478195aw; 8.2 BMI Method:Stated General Appearance: No Apparent Distress, WD/WN, Anxious, Chronically ill HEENT: PERRL/EOMI, Normal ENT Inspection, Pharynx Normal, Moist Mucous Membranes Neck: Full Range of Motion, Normal Inspection, Non Tender Respiratory: Chest Non Tender, Lungs Clear, Normal Breath Sounds, No Accessory Muscle Use, No Respiratory Distress Cardiovascular: Regular Rate, Rhythm, No Edema, No Gallop, No JVD, No Murmur, Normal Peripheral Pulses Capillary Refill: Less Than 3 Seconds Peripheral Pulses: 2+ Radial Pulses (R), 2+ Radial Pulses (L) Gastrointestinal: normal bowel sounds, soft, tenderness, other (palp mass LLQ) Extremity: Normal Capillary Refill, Normal Inspection, Normal Range of Motion, Non Tender, No Calf Tenderness, No Pedal Edema Neurologic/Psychiatric: Alert, Oriented x3, No Motor/Sensory Deficits, Normal Mood/Affect Skin: Normal Color, Warm/Dry Lymphatic: No Adenopathy Results Lab Laboratory Tests 06/04/19 18:20 06/05/19 02:58 06/06/19 03:30 Assessment/Plan Assessment/Plan UTI with sepsis secondary to colovesicular fistula -Continue Zosyn -Bonilla culture -Surgery following -IVF Hyponatremia -Monitor Anemia - moniotor Diverticulosis CAD with CABG x 3 Oxygen dependent COPD 2 liters/min -AMANDA Dean DO Jun 06, 2019 06:12
[2019-06-06] MEDS: HYDROcodone/APAP 5 MG/325 MG (LORTAB) TAB PO PRN ×3 (06:35→18:57)
[2019-06-06] MEDS: LEVOTHYROXINE 25 MCG (LEVOTHROID) TAB PO SCH (06:35)
[2019-06-06] MEDS: DOCUSATE SODIUM 100 MG (COLACE) CAP PO SCH ×2 (09:06→21:01)
[2019-06-06] MEDS: lisINopril 5 MG (PRINIVIL) TABLET PO SCH (09:06)
[2019-06-06] MEDS: POLYETHYLENE GLYCOL 17 GM (MIRALAX) PACK PO SCH ×2 (09:08→21:00)
--- NOTE | 2019-06-06 09:25 | NUR ---
REPORT RECEIVED FROM MARIAM LOZADA IN ICU. WILL ASSUME CARE OF PATIENT WHEN ARRIVES TO FLOOR.
--- NOTE | 2019-06-06 09:37 | Diagnostic Imaging Report ---
INDICATION: Shortness of breath. Portable chest at 3:33 AM FINDINGS: There are postop changes from a median sternotomy. Right upper extremity PICC line tip projects over the SVC. There is some volume loss at left lung base. There may be a tiny left effusion. There is no pneumothorax. IMPRESSION: Volume loss at left lung base, possible small left effusion. No appreciable interval change compared to previous day. Dictated by: Dictated on workstation # [id number]
--- NOTE | 2019-06-06 10:38 | Progress Note - Hospitalist ---
Subjective HPI/CC On Admission Date Seen by Provider: Jun 06, 2019 Time Seen by Provider: 09:30 Chief complaint: UTI with sepsis History of present illness: This is a 79-year-old white female of Dr. Navarro/Baltazar Ch at placed on antibiotics for UTI but continued to have fever and elevated white count requiring ER evaluation and subsequent admission for sepsis. She has been permanently placed in a half-way due to severe debility. 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 Dr. Phan is been consulted patient will be maintained on IV antibiotics to treat the sepsis along with supportive care and decision for surgical management will be at Dr. Phan's discretion. Subjective/Events-last exam patient is being transferred down to fourth floor. she complains of continued back spasm. She's a little confused. Also complains of constipation. Nursing staff notes that urine is clearing. Review of Systems Musculoskeletal: back pain Neurological: Weakness Focused Exam Lactate Level 06/04/19 18:20: Lactic Acid Level 0.87 Objective Exam Vital Signs Vital Signs Date Time Temp Pulse Resp B/P (MAP) Pulse Ox O2 Delivery O2 Flow Rate FiO2 06/06/19 17:17 97.8 92 19 154/73 (100) 100 Nasal Cannula 2.00 Capillary Refill : Less Than 3 Seconds General Appearance: No Apparent Distress, WD/WN, Anxious, Chronically ill HEENT: PERRL/EOMI, Normal ENT Inspection, Pharynx Normal, Moist Mucous Mem branes Neck: Full Range of Motion, Normal Inspection, Non Tender Respiratory: Chest Non Tender, Lungs Clear, Normal Breath Sounds, No Accessory Muscle Use, No Respiratory Distress Cardiovascular: Regular Rate, Rhythm, No Edema, No Gallop, No JVD, No Murmur, Normal Peripheral Pulses Gastrointestinal: Normal Bowel Sounds, No Organomegaly, No Pulsatile Mass, Non Tender, Soft Rectal: Deferred Back: Normal Inspection, No CVA Tenderness, No Vertebral Tenderness Extremity: Normal Capillary Refill, Normal Inspection, Normal Range of Motion, Non Tender, No Calf Tenderness, No Pedal Edema Neurologic/Psychiatric: Alert, Oriented x3, No Motor/Sensory Deficits, Normal Mood/Affect, Disoriented Skin: Normal Color, Warm/Dry Lymphatic: No Adenopathy Results/Procedures Lab Laboratory Tests 06/06/19 03:30 Patient resulted labs reviewed. Assessment/Plan Assessment and Plan Assess & Plan/Chief Complaint [id number] number 3 Zosyn Leukocytosis-resolved Fever-resolved Colovesicular fistula secondary to acute diverticulitis-Dr. Phan is following urine is clearing UTI-secondary to colovesical fistula Chronic debility CAD Diabetes mellitus 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-good control constipation on MiraLAX Hyponatremia- sodium 134 today-improving Anemia -stable-possibly secondary to chronic disease Diagnosis/Problems Diagnosis/Problems (1) Colovesical fistula Status: Acute (2) Diverticulitis of intestine Status: Acute Qualifiers: Diverticulitis site: large intestine Diverticulitis bleeding: without bleeding Diverticulitis complication: with perforation and abscess Qualified Codes: K57.20 - Diverticulitis of large intestine with perforation and abscess without bleeding (3) Urinary tract infection Status: Acute Qualifiers: Urinary tract infection type: acute cystitis Hematuria presence: with hematuria Qualified Codes: N30.01 - Acute cystitis with hematuria (4) Hyponatremia Status: Acute Clinical Quality Measures DVT/VTE Risk/Contraindication: Risk Factor Score Per Nursin RFS Level Per Nursing on Admit: 4+=Very High LISET ALDRIDGE MD Jun 06, 2019 10:38
[2019-06-06] MEDS: NS IV 1000 ML 1,000 ML IV SCH (12:46)
--- NOTE | 2019-06-06 15:10 | Progress Note - Surgery ---
Subjective Date Seen by a Provider: Jun 06, 2019 Time Seen by a Provider: 12:51 Subjective/Events-last exam patient states she's feeling a little bit better today. She still having some low back pain and spasm. Urinating okay she states. No new complaints she state. Denies any nausea vomiting fever sweats chills shortness of breath or chest pain at this time. Focused Exam Lactate Level 06/04/19 18:20: Lactic Acid Level 0.87 Objective Exam Vital Signs Date Time Temp Pulse Resp B/P (MAP) Pulse Ox O2 Delivery O2 Flow Rate FiO2 06/06/19 12:32 85 06/06/19 11:49 97.2 86 18 165/75 (105) 100 Nasal Cannula 2.00 06/06/19 09:45 97.6 92 18 131/76 (94) 100 Nasal Cannula 2.00 06/06/19 09:00 100 Nasal Cannula 2.00 06/06/19 08:30 Nasal Cannula 2.00 06/06/19 08:00 98 18 100 Nasal Cannula 2.00 06/06/19 08:00 100 Nasal Cannula 2.00 06/06/19 07:00 94 06/06/19 04:00 98.7 86 18 117/63 (81) 100 Nasal Cannula 2.00 06/06/19 04:00 100 Nasal Cannula 2.00 06/06/19 01:00 86 06/06/19 00:27 97.4 87 20 126/67 (86) 100 Nasal Cannula 2.00 06/06/19 00:00 100 Nasal Cannula 2.00 06/05/19 21:00 100 Nasal Cannula 2.00 06/05/19 20:58 97.8 100 17 160/96 (117) 100 Nasal Cannula 2.00 06/05/19 20:00 98 Nasal Cannula 2.00 06/05/19 20:00 99 13 /7 100 Nasal Cannula 2.00 06/05/19 19:00 103 06/05/19 16:00 93 9 154/71 (98) 100 Nasal Cannula 2.00 06/05/19 16:00 100 Nasal Cannula 2.00 I & O 06/06/19 07:00 Intake Total 750 ml Output Total 1700 ml Balance -950 ml Capillary Refill : Less Than 3 Seconds General Appearance: No Apparent Distress, WD/WN, Chronically ill HEENT: PERRL/EOMI, Normal ENT Inspection, Pharynx Normal, Moist Mucous Membranes Neck: Full Range of Motion, Normal Inspection, Non Tender Respiratory: Chest Non Tender, No Accessory Muscle Use, No Respiratory Distress Cardiovascular: Regular Rate, Rhythm, Normal Peripheral Pulses Peripheral Pulses: 2+ Radial Pulses (R), 2+ Radial Pulses (L) Gastrointestinal: normal bowel sounds, soft, tenderness, other (palp mass LLQ) Extremity: Normal Capillary Refill, Normal Inspection, Normal Range of Motion, Non Tender, No Calf Tenderness, No Pedal Edema Neurologic/Psychiatric: Alert, No Motor/Sensory Deficits, Normal Mood/Affect Skin: Normal Color, Warm/Dry Lymphatic: No Adenopathy Results Lab Laboratory Tests 06/05/19 16:57: Glucometer 137H 06/05/19 21:07: Glucometer 172H 06/06/19 03:30: White Blood Count 8.2, Red Blood Count 2.91L, Hemoglobin 7.6L, Hematocrit 25L, M moustapha Corpuscular Volume 84, Mean Corpuscular Hemoglobin 26, Mean Corpuscular Hemoglobin Concent 31L, Red Cell Distribution Width 14.8H, Platelet Count 358, Mean Platelet Volume 8.2, Neutrophils (%) (Auto) 57, Lymphocytes (%) (Auto) 31, Monocytes (%) (Auto) 8, Eosinophils (%) (Auto) 4, Basophils (%) (Auto) 1, Neutrophils # (Auto) 4.7, Lymphocytes # (Auto) 2.5, Monocytes # (Auto) 0.6, Eosinophils # (Auto) 0.3, Basophils # (Auto) 0.0, Sodium Level 134L, Potassium Level 4.7, Chloride Level 99, Carbon Dioxide Level 28, Anion Gap 7, Blood Urea Nitrogen 12, Creatinine 0.73, Estimat Glomerular Filtration Rate > 60, BUN/Creatinine Ratio 16, Glucose Level 102, Calcium Level 8.4L, Corrected Calcium 9.4, Phosphorus Level 3.4, Magnesium Level 1.8, Total Bilirubin 0.2, Aspartate Amino Transf (AST/SGOT) 9, Alanine Aminotransferase (ALT/SGPT) < 6, Alkaline Phosphatase 47, Total Protein 5.8L, Albumin 2.8L 06/06/19 11:46: Glucometer 140H Microbiology 06/04/19 Blood Culture - Preliminary, Resulted No growth 06/04/19 Urine Culture - Final, Complete NO GROWTH Assessment/Plan Assessment/Plan Assessment/Plan diverticulitis with colovesicular fistula anemia hyponatremia Follow labs transfuse prbc as necessary wbc improving Clinical Quality Measures DVT/VTE Risk/Contraindication: Risk Factor Score Per Nursin RFS Level Per Nursing on Admit: 4+=Very High ROHAN MACHADO DO Jun 06, 2019 15:10
[2019-06-06] MEDS: KETOROLAC 15 MG/ML VIAL IV PRN (16:33)
[2019-06-06] MEDS: traZODone 100 MG (DESYREL) TAB PO SCH (20:59)
[2019-06-06] MEDS: GABAPENTIN 100 MG (NEURONTIN) CAP PO SCH (20:59)
[2019-06-07] VITALS (8 sets, daily range): BP systolic 133–200; BP diastolic 72–90
[2019-06-07] MEDS: PIPERACILLIN/TAZOBACTAM (BULK) 4.5 GM in NS (IVPB) 100 ML IV SCH ×3 (03:05→18:47)
[2019-06-07 04:23] LABS: BASOPHILS % (AUTO) 0 % (0-10); EOSINOPHILS # (AUTO) 0.4 10^3/uL (0.0-0.3); EOSINOPHILS % (AUTO) 4 % (0-10); HEMATOCRIT 27 % (35-52); HEMOGLOBIN 8.3 G/DL (11.5-16.0); LYMPHOCYTES # (AUTO) 2.1 X 10^3 (1.0-4.0); LYMPHOCYTES % (AUTO) 22 % (12-44); MEAN CORPUSCULAR HEMOGLOBIN 26 PG (25-34); MEAN CORPUSCULAR HGB CONC 31 G/DL (32-36); MEAN CORPUSCULAR VOLUME 85 FL (80-99); MEAN PLATELET VOLUME 8.2 FL (7.4-10.4); MONOCYTES # (AUTO) 0.9 X 10^3 (0.0-1.0); MONOCYTES % (AUTO) 9 % (0-12); NEUTROPHILS # (AUTO) 6.2 X 10^3 (1.8-7.8); NEUTROPHILS % (AUTO) 65 % (42-75); PLATELET COUNT 410 10^3/uL (130-400); WHITE BLOOD COUNT 9.6 10^3/uL (4.3-11.0)
[2019-06-07 04:42] LABS: ALANINE AMINOTRANSFERASE 7 U/L (0-55); ALBUMIN 3.1 GM/DL (3.2-4.5); ALKALINE PHOSPHATASE 50 U/L (40-136); BILIRUBIN,TOTAL 0.3 MG/DL (0.1-1.0); BUN/CREATININE RATIO 16; CALCIUM 8.5 MG/DL (8.5-10.1); CARBON DIOXIDE 25 MMOL/L (21-32); CHLORIDE 101 MMOL/L (98-107); CREATININE SERUM 0.74 MG/DL (0.60-1.30); GFR ESTIMATED > 60; GLUCOSE 100 MG/DL (70-105); MAGNESIUM 1.8 MG/DL (1.8-2.4); PHOSPHORUS 3.1 MG/DL (2.3-4.7); POTASSIUM 4.1 MMOL/L (3.6-5.0); SODIUM 136 MMOL/L (135-145); TOTAL PROTEIN 6.4 GM/DL (6.4-8.2)
[2019-06-07] MEDS: LEVOTHYROXINE 25 MCG (LEVOTHROID) TAB PO SCH (05:00)
[2019-06-07] MEDS: HYDROcodone/APAP 5 MG/325 MG (LORTAB) TAB PO PRN ×3 (05:01→20:34)
[2019-06-07] MEDS: inSUlin ASPART (NovoLOG) 1 UNIT/0.01 ML (CHARGE PER UNIT) SC SCH ×4 (05:21→20:34)
--- NOTE | 2019-06-07 07:24 | Pulmonary Progress Note ---
Subjective Time Seen by a Provider: 07:23 Subjective/Events-last exam PT appears to be doing better. Sepsis Event Evaluation Height, Weight, BMI Height: 5'60.00" Weight: 172lbs. 11.2oz. [id number]; 8.2 BMI Method:Stated Focused Exam Lactate Level 06/04/19 18:20: Lactic Acid Level 0.87 Exam Exam Vital Signs Date Time Temp Pulse Resp B/P (MAP) Pulse Ox O2 Delivery O2 Flow Rate FiO2 06/07/19 04:00 98.2 102 22 176/82 (113) 99 Nasal Cannula 2.00 06/07/19 01:00 90 06/07/19 00:00 98.3 95 24 133/77 (95) 99 Nasal Cannula 2.00 06/06/19 21:00 100 Nasal Cannula 2.00 06/06/19 20:17 98.4 92 18 158/74 (102) 100 Nasal Cannula 2.00 06/06/19 19:00 104 06/06/19 17:17 97.8 92 19 154/73 (100) 100 Nasal Cannula 2.00 06/06/19 16:00 97.8 92 19 154/73 (100) 100 Nasal Cannula 2.00 06/06/19 12:32 85 06/06/19 11:49 97.2 86 18 165/75 (105) 100 Nasal Cannula 2.00 06/06/19 09:50 100 Nasal Cannula 2.00 06/06/19 09:45 97.6 92 18 131/76 (94) 100 Nasal Cannula 2.00 06/06/19 09:00 100 Nasal Cannula 2.00 06/06/19 08:30 Nasal Cannula 2.00 06/06/19 08:00 98 18 100 Nasal Cannula 2.00 06/06/19 08:00 100 Nasal Cannula 2.00 I & O 06/07/19 07:00 Intake Total 2370 ml Output Total 1330 ml Balance 1040 ml Height & Weight Height: 5'60.00" Weight: 172lbs. 11.2oz. [id number]; 8.2 BMI Method:Stated General Appearance: No Apparent Distress, WD/WN, Anxious, Chronically ill HEENT: PERRL/EOMI, Normal ENT Inspection, Pharynx Normal, Moist Mucous Membra soraya Neck: Full Range of Motion, Normal Inspection, Non Tender Respiratory: Chest Non Tender, Lungs Clear, Normal Breath Sounds, No Accessory Muscle Use, No Respiratory Distress Cardiovascular: Regular Rate, Rhythm, No Edema, No Gallop, No JVD, No Murmur, Normal Peripheral Pulses Capillary Refill: Less Than 3 Seconds Peripheral Pulses: 2+ Radial Pulses (R), 2+ Radial Pulses (L) Gastrointestinal: normal bowel sounds, soft, tenderness, other (palp mass LLQ) Extremity: Normal Capillary Refill, Normal Inspection, Normal Range of Motion, Non Tender, No Calf Tenderness, No Pedal Edema Neurologic/Psychiatric: Alert, Oriented x3, No Motor/Sensory Deficits, Normal Mood/Affect, Disoriented Skin: Normal Color, Warm/Dry Lymphatic: No Adenopathy Results Lab Laboratory Tests 06/06/19 03:30 06/07/19 04:05 Assessment/Plan Assessment/Plan Atelectasis -IS -Titrate oxygen 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
[2019-06-07] MEDS: POLYETHYLENE GLYCOL 17 GM (MIRALAX) PACK PO SCH ×2 (08:49→19:25)
[2019-06-07] MEDS: DOCUSATE SODIUM 100 MG (COLACE) CAP PO SCH ×2 (08:49→19:25)
[2019-06-07] MEDS: lisINopril 5 MG (PRINIVIL) TABLET PO SCH (08:50)
--- NOTE | 2019-06-07 10:49 | Diagnostic Imaging Report ---
INDICATION: Dyspnea FINDINGS: Portable chest shows the heart size to be upper normal. The vascularity is normal. There is left basilar atelectasis. The right lung is clear. These findings are similar to the 06/06/2019 study. IMPRESSION: Stable chest. Dictated by: Dictated on workstation # [id number]
--- NOTE | 2019-06-07 12:31 | Progress Note - Hospitalist ---
Subjective HPI/CC On Admission Date Seen by Provider: Jun 07, 2019 Time Seen by Provider: 12:00 Chief complaint: UTI with sepsis History of present illness: This is a 79-year-old white female of Dr. Navarro/Baltazar Ch at placed on antibiotics for UTI but continued to have fever and elevated white count requiring ER evaluation and subsequent admission for sepsis. She has been permanently placed in a retirement due to severe debility. 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 Dr. Phan is been consulted patient will be maintained on IV antibiotics to treat the sepsis along with supportive care and decision for surgical management will be at Dr. Phan's discretion. Subjective/Events-last exam patient says she is getting stronger but is still weak. She resides at [facility] and wishes to return . She did have a bowel movement this morning and that has helped Review of Systems Neurological: Weakness Focused Exam Lactate Level 06/04/19 18:20: Lactic Acid Level 0.87 Objective Exam Vital Signs Vital Signs Date Time Temp Pulse Resp B/P (MAP) Pulse Ox O2 Delivery O2 Flow Rate FiO2 06/07/19 10:18 Nasal Cannula 2.00 06/07/19 09:00 99.0 103 18 147/72 (97) 99 Capillary Refill : Less Than 3 Seconds General Appearance: No Apparent Distress, WD/WN, Anxious, Chronically ill HEENT: PERRL/EOMI, Normal ENT Inspection, Pharynx Normal, Moist Mucous Membranes Neck: Full Range of Motion, Normal Inspection, Non Tender Respiratory: Chest Non Tender, Lungs Clear, Normal Breath Sounds, No Accessory Muscle Use, No Respiratory Distress Cardiovascular: Regular Rate, Rhythm, No Edema, No Gallop, No JVD, No Murmur, Normal Peripheral Pulses Gastrointestinal: Normal Bowel Sounds, No Organomegaly, No Pulsatile Mass, Non Tender, Soft Rectal: Deferred Back: Normal Inspection, No CVA Tenderness, No Vertebral Tenderness Extremity: Normal Capillary Refill, Normal Inspection, Normal Range of Motion, Non Tender, No Calf Tenderness, No Pedal Edema Neurologic/Psychiatric: Alert, Oriented x3, No Motor/Sensory Deficits, Normal Mood/Affect, Disoriented Skin: Normal Color, Warm/Dry Lymphatic: No Adenopathy Results/Procedures Lab Laboratory Tests 06/07/19 04:05 Patient resulted labs reviewed. 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 Phan is following urine is clearing-bowels are moving UTI-secondary to colovesical fistula Chronic debility CAD Diabetes mellitus 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-good control constipation on MiraLAX Hyponatremia- sodium 136 today-improving Anemia -stable-possibly secondary to chronic disease-8.3 today discharge planning to return to [place] in the next day or 2 Diagnosis/Problems Diagnosis/Problems (1) Colovesical fistula Status: Acute (2) Diverticulitis of intestine Status: Acute Qualifiers: Diverticulitis site: large intestine Diverticulitis bleeding: without bleeding Diverticulitis complication: with perforation and abscess Qualified Codes: K57.20 - Diverticulitis of large intestine with perforation and abscess without bleeding (3) Urinary tract infection Status: Acute Qualifiers: Urinary tract infection type: acute cystitis Hematuria presence: with hematuria Qualified Codes: N30.01 - Acute cystitis with hematuria (4) Hyponatremia Status: Acute Clinical Quality Measures DVT/VTE Risk/Contraindication: Risk Factor Score Per Nursin RFS Level Per Nursing on Admit: 4+=Very High LISET ALDRIDGE MD Jun 07, 2019 12:30
--- NOTE | 2019-06-07 17:31 | Progress Note - Surgery ---
Subjective Date Seen by a Provider: Jun 07, 2019 Time Seen by a Provider: 09:09 Subjective/Events-last exam patient states she's feeling better. Patient having bowel movements she states. Still some spasm pain in the back that is feeling a little bit better today. She denies any new complaints. She denies any nausea vomiting fever sweats chills shortness of breath or chest pain at this time. Focused Exam Lactate Level 06/04/19 18:20: Lactic Acid Level 0.87 Objective Exam Vital Signs Date Time Temp Pulse Resp B/P (MAP) Pulse Ox O2 Delivery O2 Flow Rate FiO2 06/07/19 16:02 98.2 92 17 162/82 (108) 100 Nasal Cannula 2.00 06/07/19 12:00 98.8 97 20 150/77 (101) 99 Nasal Cannula 2.00 06/07/19 10:18 Nasal Cannula 2.00 06/07/19 09:00 99.0 103 18 147/72 (97) 99 Nasal Cannula 2.00 06/07/19 09:00 99 Nasal Cannula 2.00 06/07/19 08:45 Nasal Cannula 2.00 06/07/19 07:00 104 06/07/19 04:00 98.2 102 22 176/82 (113) 99 Nasal Cannula 2.00 06/07/19 01:00 90 06/07/19 00:00 98.3 95 24 133/77 (95) 99 Nasal Cannula 2.00 06/06/19 21:00 100 Nasal Cannula 2.00 06/06/19 20:17 98.4 92 18 158/74 (102) 100 Nasal Cannula 2.00 06/06/19 19:00 104 I & O 06/07/19 07:00 Intake Total 2370 ml Output Total 1330 ml Balance 1040 ml Capillary Refill : Less Than 3 Seconds General Appearance: No Apparent Distress, WD/WN, Anxious, Chronically ill HEENT: PERRL/EOMI, Normal ENT Inspection, Pharynx Normal, Moist Mucous Membranes Neck: Full Range of Motion, Normal Inspection, Non Tender Respiratory: Chest Non Tender, Lungs Clear, Normal Breath Sounds, No Accessory Muscle Use, No Respiratory Distress Cardiovascular: Regular Rate, Rhythm Peripheral Pulses: 2+ Radial Pulses (R), 2+ Radial Pulses (L) Gastrointestinal: normal bowel sounds, soft, tenderness (minimal left lower quadrant) Extremity: Normal Capillary Refill, Normal Inspection, Normal Range of Motion, Non Tender, No Calf Tenderness, No Pedal Edema Neurologic/Psychiatric: Alert, Oriented x3, No Motor/Sensory Deficits, Normal Mood/Affect, Disoriented Skin: Normal Color, Warm/Dry Lymphatic: No Adenopathy Results Lab Laboratory Tests 06/06/19 20:42: Glucometer 136H 06/07/19 04:05: White Blood Count 9.6, Red Blood Count 3.18L, Hemoglobin 8.3L, Hematocrit 27L, Mean Corpuscular Volume 85, Mean Corpuscular Hemoglobin 26, Mean Corpuscular Hemoglobin Concent 31L, Red Cell Distribution Width 15.0H, Platelet Count 410H, Mean Platelet Volume 8.2, Neutrophils (%) (Auto) 65, Lymphocytes (%) (Auto) 22, Monocytes (%) (Auto) 9, Eosinophils (%) (Auto) 4, Basophils (%) (Auto) 0, Neutrophils # (Auto) 6.2, Lymphocytes # (Auto) 2.1, Monocytes # (Auto) 0.9, Eosinophils # (Auto) 0.4H, Basophils # (Auto) 0.0, Sodium Level 136, Potassium Level 4.1, Chloride Level 101, Carbon Dioxide Level 25, Anion Gap 10, Blood Urea Nitrogen 12, Creatinine 0.74, Estimat Glomerular Filtration Rate > 60, BUN/Creatinine Ratio 16, Glucose Level 100, Calcium Level 8.5, Corrected Calcium 9.2, Phosphorus Level 3.1, Magnesium Level 1.8, Total Bilirubin 0.3, Aspartate Amino Transf (AST/SGOT) 10, Alanine Aminotransferase (ALT/SGPT) 7, Alkaline Phosphatase 50, Total Protein 6.4, Albumin 3.1L 06/07/19 11:05: Glucometer 117H 06/07/19 16:14: Glucometer 126H Microbiology 06/04/19 Blood Culture - Preliminary, Resulted No growth 06/04/19 Urine Culture - Final, Complete NO GROWTH Assessment/Plan Assessment/Plan Assessment/Plan diverticulitis with colovesicular fistula anemia hyponatremia Follow labs transfuse prbc as necessary continue medical management at this time. Clinical Quality Measures DVT/VTE Risk/Contraindication: Risk Factor Score Per Nursin RFS Level Per Nursing on Admit: 4+=Very High ROHAN MACHADO DO Jun 07, 2019 17:31
[2019-06-07] MEDS: meTOproloL SUCCINATE 50 MG (TOPROL XL) TAB PO SCH (19:25)
[2019-06-07] MEDS: traZODone 100 MG (DESYREL) TAB PO SCH (20:27)
[2019-06-07] MEDS: GABAPENTIN 100 MG (NEURONTIN) CAP PO SCH (20:28)
[2019-06-07] MEDS ORDERED: SERTRALINE 50 MG (ZOLOFT) TABLET PO SCH (21:00)
[2019-06-08 00:45] VITALS: BP 172/76
[2019-06-08] MEDS: PIPERACILLIN/TAZOBACTAM (BULK) 4.5 GM in NS (IVPB) 100 ML IV SCH ×2 (03:45→12:30)
[2019-06-08 04:00] VITALS: BP 167/81
[2019-06-08] MEDS: HYDROcodone/APAP 5 MG/325 MG (LORTAB) TAB PO PRN (04:23)
[2019-06-08 05:23] LABS: BASOPHILS % (AUTO) 0 % (0-10); EOSINOPHILS # (AUTO) 0.3 10^3/uL (0.0-0.3); EOSINOPHILS % (AUTO) 3 % (0-10); HEMATOCRIT 28 % (35-52); HEMOGLOBIN 8.5 G/DL (11.5-16.0); LYMPHOCYTES # (AUTO) 2.2 X 10^3 (1.0-4.0); LYMPHOCYTES % (AUTO) 23 % (12-44); MEAN CORPUSCULAR HEMOGLOBIN 26 PG (25-34); MEAN CORPUSCULAR HGB CONC 31 G/DL (32-36); MEAN CORPUSCULAR VOLUME 84 FL (80-99); MEAN PLATELET VOLUME 8.3 FL (7.4-10.4); MONOCYTES % (AUTO) 10 % (0-12); NEUTROPHILS # (AUTO) 6.1 X 10^3 (1.8-7.8); NEUTROPHILS % (AUTO) 63 % (42-75); PLATELET COUNT 375 10^3/uL (130-400); RED CELL DISTRIBUTION WIDTH 14.7 % (10.0-14.5); WHITE BLOOD COUNT 9.7 10^3/uL (4.3-11.0)
[2019-06-08] MEDS: inSUlin ASPART (NovoLOG) 1 UNIT/0.01 ML (CHARGE PER UNIT) SC SCH (05:37)
[2019-06-08] MEDS: LEVOTHYROXINE 25 MCG (LEVOTHROID) TAB PO SCH (05:38)
[2019-06-08 05:51] LABS: ALANINE AMINOTRANSFERASE 6 U/L (0-55); ALBUMIN 3.1 GM/DL (3.2-4.5); ALKALINE PHOSPHATASE 56 U/L (40-136); BILIRUBIN,TOTAL 0.4 MG/DL (0.1-1.0); BUN/CREATININE RATIO 9; CALCIUM 8.9 MG/DL (8.5-10.1); CARBON DIOXIDE 26 MMOL/L (21-32); CHLORIDE 99 MMOL/L (98-107); CREATININE SERUM 0.69 MG/DL (0.60-1.30); GFR ESTIMATED > 60; GLUCOSE 105 MG/DL (70-105); MAGNESIUM 1.6 MG/DL (1.8-2.4); PHOSPHORUS 2.8 MG/DL (2.3-4.7); POTASSIUM 3.4 MMOL/L (3.6-5.0); SODIUM 136 MMOL/L (135-145); TOTAL PROTEIN 6.6 GM/DL (6.4-8.2)
--- NOTE | 2019-06-08 07:52 | Pulmonary Progress Note ---
Subjective Time Seen by a Provider: 07:51 Subjective/Events-last exam No complications noted. Sepsis Event Evaluation Height, Weight, BMI Height: 5'60.00" Weight: 166lbs. 3.2oz. 75.614754nw; 8.2 BMI Method:Stated Exam Exam Vital Signs Date Time Temp Pulse Resp B/P (MAP) Pulse Ox O2 Delivery O2 Flow Rate FiO2 06/08/19 04:00 98.0 92 18 167/81 (109) 99 Nasal Cannula 2.00 06/08/19 00:45 97.8 90 18 172/76 (108) 98 Nasal Cannula 2.00 06/07/19 21:38 88 135/82 (99) 06/07/19 20:39 99.0 102 20 178/89 (118) 100 Nasal Cannula 2.00 06/07/19 20:00 98 Nasal Cannula 2.00 06/07/19 19:14 102 200/90 (126) 06/07/19 16:02 98.2 92 17 162/82 (108) 100 Nasal Cannula 2.00 06/07/19 12:00 98.8 97 20 150/77 (101) 99 Nasal Cannula 2.00 06/07/19 10:18 Nasal Cannula 2.00 06/07/19 09:00 99.0 103 18 147/72 (97) 99 Nasal Cannula 2.00 06/07/19 09:00 99 Nasal Cannula 2.00 06/07/19 08:45 Nasal Cannula 2.00 I & O 06/08/19 07:00 Intake Total 3160 ml Output Total 1450 ml Balance 1710 ml Height & Weight Height: 5'60.00" Weight: 166lbs. 3.2oz. 75.725998yx; 8.2 BMI Method:Stated General Appearance: No Apparent Distress, WD/WN, Anxious, Chronically ill HEENT: PERRL/EOMI, Normal ENT Inspection, Pharynx Normal, Moist Mucous Membranes Neck: Full Range of Motion, Normal Inspection, Non Tender Respiratory: Chest Non Tender, Lungs Clear, Normal Breath Sounds, No Accessory Muscle Use, No Respiratory Distress Cardiovascular: Regular Rate, Rhythm, No Edema, No Gallop, No JVD, No Murmur, Normal Peripheral Pulses Capillary Refill: Less Than 3 Seconds Peripheral Pulses: 2+ Radial Pulses (R), 2+ Radial Pulses (L) Gastrointestinal: normal bowel sounds, soft, tenderness, other (palp mass LLQ) Extremity: Normal Capillary Refill, Normal Inspection, Normal Range of Motion, Non Tender, No Calf Tenderness, No Pedal Edema Neurologic/Psychiatric: Alert, Oriented x3, No Motor/Sensory Deficits, Normal Mood/Affect, Disoriented Skin: Normal Color, Warm/Dry Lymphatic: No Adenopathy Results Lab Laboratory Tests 06/07/19 04:05 06/08/19 05:04 Assessment/Plan Assessment/Plan Atelectasis -IS -Titrate oxygen - 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
[2019-06-08 08:00] VITALS: BP 180/69
--- NOTE | 2019-06-08 09:10 | Diagnostic Imaging Report ---
INDICATION: Dyspnea. TIME OF EXAM: 5:26 AM Correlation is made with prior study one day earlier. FINDINGS: Changes of median sternotomy are noted. Right upper extremity PICC line has tip overlying the SVC right atrial junction. Left hemidiaphragm is chronically elevated. There has been some improved aeration to left base since yesterday. Right lung is clear. No significant effusion or pneumothorax is seen. IMPRESSION: Overall improved aeration to left base with only mild residual atelectasis or infiltrate remaining on today's study, when compared with exam one day earlier. Dictated by: Dictated on workstation # [id number]
[2019-06-08] MEDS: meTOproloL SUCCINATE 50 MG (TOPROL XL) TAB PO SCH (09:22)
[2019-06-08] MEDS: POLYETHYLENE GLYCOL 17 GM (MIRALAX) PACK PO SCH (09:22)
[2019-06-08] MEDS: DOCUSATE SODIUM 100 MG (COLACE) CAP PO SCH (09:22)
[2019-06-08] MEDS: lisINopril 5 MG (PRINIVIL) TABLET PO SCH (09:22)
[2019-06-08] MEDS: KETOROLAC 15 MG/ML VIAL IV PRN (09:25)
--- NOTE | 2019-06-08 11:54 | Discharge Summary ---
Diagnosis/Chief Complaint Date of Admission Jun 04, 2019 at 7:00 pm Date of Discharge Admission Diagnosis Assessment: Sepsis Leukocytosis Fever Colovesicular fistula UTI Chronic debility CAD Diabetes mellitus 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 Plan: Appreciate general surgery consultation IV antibiotics IV fluids Supportive care Prognosis guarded Discharge Diagnosis (1) Colovesical fistula Status: Acute (2) Diverticulitis of intestine Status: Acute (3) Urinary tract infection Status: Acute (4) Hyponatremia Status: Acute Discharge Summary Procedures/Consulations Dr Norman- Pulm Dr Mas- Surgery Discharge Physical Exam Allergies: Coded Allergies: shrimp (Verified Allergy, Unknown, 04/30/19) Vitals & I&Os Vital Signs Date Time Temp Pulse Resp B/P (MAP) Pulse Ox O2 Delivery O2 Flow Rate FiO2 06/08/19 15:59 06/08/19 09:36 Nasal Cannula 2.00 06/08/19 09:00 98 06/08/19 08:00 98.1 64 18 General Appearance: No Apparent Distress, Chronically ill Respiratory: Lungs Clear, No Respiratory Distress Cardiovascular: Regular Rate, Rhythm, No Murmur Hospital Course Pt is a 79yoCF who was admitted for sepsis from presumed UTI due to colovesicular fistula. She was treated with antibiotics and cultures were sent which revealed no growth in her urine. She was transitioned from Zosyn to Augmentin as she clinically improved with antibiotics. She was discharged home to her NH in stable condition. Labs (last 24 hrs) Microbiology 06/04/19 Blood Culture - Final, Complete No growth 06/04/19 Urine Culture - Final, Complete NO GROWTH Patient resulted labs reviewed. Pending Labs Discussion & Recommendations Discharge Planning: >30 minutes discharge planning Discharge Home Medications: Active Scripts Active Augmentin 875-125 Tablet (Amoxicillin/Potassium Clav) 1 Each Tablet 1 Each PO BID Metoprolol Succinate 50 Mg Tab.er.24h 50 Mg PO BID Reported Zyrtec (Cetirizine HCl) 10 Mg Tablet 5 Mg PO DAILY TAKES 1/2 (10MG) TABLET Zofran (Ondansetron HCl) 4 Mg Tab 4 Mg PO Q8H PRN Tizanidine HCl 2 Mg Tablet 2 Mg PO BID Lisinopril 5 Mg Tablet 5 Mg PO DAILY HOLD FOR SBP<100, DBP<60 Biofreeze (Menthol) 118 Ml Gel..ml. TP Q6H PRN APPLY TO LOWER BACK Vitamin D3 (Cholecalciferol (Vitamin D3)) 1,000 Unit Tablet 2,000 Units PO DAILY Trazodone HCl 100 Mg Tablet 100 Mg PO HS Synthroid (Levothyroxine Sodium) 25 Mcg Tablet 25 Mcg PO DAILY Sertraline HCl 50 Mg Tablet 50 Mg PO DAILY Senna S Tablet (Sennosides/Docusate Sodium) 1 Each Tablet 3 Tab PO DAILY Niferex Tablet (Iron Ag,Ps/C/Fa6/B12/Zn/SA/Sto) 1 Each Tablet 150 Mg PO DAILY Milk of Magnesia (Magnesium Hydroxide) 400 Mg/5 Ml Oral.susp 30 Ml PO DAILY PRN Meloxicam 7.5 Mg Tablet 7.5 Mg PO DAILY Magox 400 (Magnesium Oxide) 400 Mg Tablet 400 Mg PO DAILY Lorazepam 0.5 Mg Tablet 0.5 Mg PO DAILY Hydrocodone-Acetamin 5-325 mg (Hydrocodone/Acetaminophen) 1 Each Tablet 1-2 Tab PO Q4H PRN Gabapentin 100 Mg Capsule 200 Mg PO HS TAKES 2 (100MG) CAPSULES Fluticasone Propionate 16 Gm [place].susp 1 [place] NS DAILY Vitamin B-12 (Cyanocobalamin (Vitamin B-12)) 500 Mcg Tablet 500 Mcg PO DAILY Co Q-10 100 mg Softgel (Ubidecarenone/Vit E Acetate) 1 Each Capsule 100 Mg PO DAILY Atorvastatin Calcium 20 Mg Tablet 20 Mg PO DAILY Instructions to patient/family Please see electronic discharge instructions given to patient. Clinical Quality Measures DVT/VTE Risk/Contraindication: Risk Factor Score Per Nursin RFS Level Per Nursing on Admit: 4+=Very High Problem Qualifiers (1) Diverticulitis of intestine: Diverticulitis site: large intestine Diverticulitis bleeding: without bleeding Diverticulitis complication: with perforation and abscess Qualified Codes: K57.20 - Diverticulitis of large intestine with perforation and abscess without bleeding (2) Urinary tract infection: Urinary tract infection type: acute cystitis Hematuria presence: with hematuria Qualified Codes: N30.01 - Acute cystitis with hematuria ALICIA MORGAN MD Jun 08, 2019 11:54
[2019-06-08] MEDS ORDERED: METO-370 PO (11:56)
[2019-06-08] MEDS ORDERED: AMOX-358 PO (11:58)
--- NOTE | 2019-06-08 13:31 | Discharge Inst-Simple/Standard ---
Discharge Inst-Standard Discharge Medications New, Converted or Re-Newed RX: Transmitted to Pharmacy Patient Instructions/Follow Up Plan of Care/Instructions/FU: Please continue to take your medications as written and follow up with Dr Mas and your PCP as scheduled. Activity as Tolerated: Yes Discharge Diet: No Restrictions Return to The Hospital For: Chest pain, SOB, fever, abdominal pain, if you feel you are getting worse. ALICIA MORGAN MD Jun 08, 2019 1:31 pm
--- NOTE | 2019-06-08 13:34 | Discharge Inst-Skilled Nursing ---
Discharge Inst-Skilled NF Chief Complaint Chief complaint: UTI with sepsis History of present illness: This is a 79-year-old white female of Dr. Navarro/Baltazar Ch at placed on antibiotics for UTI but continued to have f ever and elevated white count requiring ER evaluation and subsequent admission for sepsis. She has been permanently placed in a residential due to severe debility. 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 Dr. Phan is been consulted patient will be maintained on IV antibiotics to treat the sepsis along with supportive care and decision for surgical management will be at Dr. Phan's discretion. Consult/Follow Up/Orders Skilled NF Admit to: [facility] Certification (SNF) I certify that SNF services are required to be given on an inpatient basis because of the above named patient's need for senior living care on a continuing basis for the conditions(s) for which he/she was receiving inpatient hospital services prior to his/her transfer to the SNF. Half-Way Facility Order: Nursing Services, Motor Brakeman-Evaluate & Treat, Physical Therapy-Evaluate & Treat Oxygen Delivery Method: Nasal Cannula Discharge Diet: No Restrictions New & Resume Previous Orders New & Resume Previous Orders resume previous orders. Alicia Campos Jun 08, 2019 13:33 ALICIA CAMPOS MD Jun 08, 2019 1:34 pm
--- NOTE | 2019-06-08 13:34 | NUR ---
DISCHARGE PLANNING: Patient is to be discharged today. I have spoken with [facility] regarding discharge back to them to continue previous skilled stay. They will be here in just over 1 hour with a W/C clothes and O2. I have notified the floor and will fax orders to [facility].
[2019-06-08] MEDS: CYCLOBENZAPRINE 10 MG (FLEXERIL) TAB PO SCH (13:49)
--- NOTE | 2019-06-08 13:52 | NUR ---
Provided active listening, soothing touch, and prayer. Pt is [employer].
== END 2019-06-08 13:20 | DRG 872 ==
LOC: EDUNIT# 18:15 → ER 18:16 → ICU 19:00 → 4TH 06-06 09:45
PROVIDERS: ADMIT Internal Medicine; ATTEND Internal Medicine
DX: A41.9 Sepsis, unspecified organism (principal); N30.01 Acute cystitis with hematuria; N32.1 Vesicointestinal fistula; K57.20 Diverticulitis of large intestine with perforation and abscess without bleeding; E87.1 Hypo-osmolality and hyponatremia; J98.11 Atelectasis; I11.0 Hypertensive heart disease with heart failure; I50.9 Heart failure, unspecified; R60.9 Edema, unspecified; R53.81 Other malaise; M62.830 Muscle spasm of back; K59.00 Constipation, unspecified; J43.9 Emphysema, unspecified; D63.8 Anemia in other chronic diseases classified elsewhere; G47.9 Sleep disorder, unspecified; I25.10 Atherosclerotic heart disease of native coronary artery without angina pectoris; I25.2 Old myocardial infarction; E11.9 Type 2 diabetes mellitus without complications; F41.9 Anxiety disorder, unspecified; F32.9 Major depressive disorder, single episode, unspecified; Z95.1 Presence of aortocoronary bypass graft; Z79.4 Long term (current) use of insulin; Z90.710 Acquired absence of both cervix and uterus; Z99.81 Dependence on supplemental oxygen
CPT/HCPCS: 36415; 36569; 71045; 74176; 76937; 80053; 81000; 82962; 83605; 83735; 84100; 85007; 85025; 85027; 85610; 87040; 87088; 94664; 96361; 96374; 96375

== ENCOUNTER → 2019-06-25 | Outpatient (CLI) | payer MEDICAID, MEDICARE ==
[~2019-06-25] MED LIST changes: +CETI10TA20 PO; -CYAN500T2 PO; +CYAN500T62 PO; +LEVO750T9 PO; +LISI-556 PO; +MENT118G TP; +METO-370 PO; +ONDN4T PO; +TIZA2TAB4 PO
[2019-06-25 09:00] LABS: ABSOLUTE RETIC # 60 10e9/L (24-90); BASOPHILS % (AUTO) 0 % (0-10); EOSINOPHILS # (AUTO) 0.3 10^3/uL (0.0-0.3); EOSINOPHILS % (AUTO) 3 % (0-10); HEMATOCRIT 32 % (35-52); HEMOGLOBIN 9.6 G/DL (11.5-16.0); LYMPHOCYTES # (AUTO) 3.5 X 10^3 (1.0-4.0); LYMPHOCYTES % (AUTO) 35 % (12-44); MEAN CORPUSCULAR HEMOGLOBIN 25 PG (25-34); MEAN CORPUSCULAR HGB CONC 30 G/DL (32-36); MEAN CORPUSCULAR VOLUME 84 FL (80-99); MEAN PLATELET VOLUME 8.6 FL (7.4-10.4); MONOCYTES # (AUTO) 0.8 X 10^3 (0.0-1.0); MONOCYTES % (AUTO) 9 % (0-12); NEUTROPHILS # (AUTO) 5.2 X 10^3 (1.8-7.8); NEUTROPHILS % (AUTO) 53 % (42-75); PLATELET COUNT 496 10^3/uL (130-400); RED CELL DISTRIBUTION WIDTH 14.8 % (10.0-14.5); RETICULOCYTE % 1.58 % (0.50-2.40); WHITE BLOOD COUNT 9.8 10^3/uL (4.3-11.0)
[2019-06-25 09:33] LABS: BAND NEUTROPHILS 0 %; BASOPHILS % (MANUAL) 0 %; EOSINOPHILS % (MANUAL) 1 %; LYMPHOCYTES % (MANUAL) 35 %; MONOCYTES % (MANUAL) 3 %; NEUTROPHILS % (MANUAL) 61 %; RBC MORPH NORMAL
== END ==
LOC: LAB 08:44
PROVIDERS: ATTEND Internal Medicine
DX: D64.9 Anemia, unspecified (principal)
CPT/HCPCS: 36415; 85007; 85027; 85045

== ENCOUNTER 2019-07-29 05:54 | Outpatient (CLI) | payer MEDICARE ==
[~2019-07-29] VITALS: Ht 152.4 cm; Wt 68.1 kg
[2019-07-29] MEDS ORDERED: BISA5TAB8 PO (15:14)
[2019-07-29] MEDS ORDERED: FURO40TA4 PO (15:14)
[2019-07-29] MEDS ORDERED: POTA-51 PO (15:14)
== END 2019-07-29 15:17 | disposition home or self-care (01) ==
LOC: PREOP 05:54
PROVIDERS: ATTEND Surgery
DX: Z01.818 Encounter for other preprocedural examination (principal)

== ENCOUNTER 2019-08-04 13:18 | Day surgery (SDC) | payer MEDICARE ==
[~2019-08-04] VITALS: Ht 152.4 cm; Wt 68.1 kg
[~2019-08-04 13:18] MED LIST changes: +BISA5TAB8 PO; +POTA-51 PO
[2019-08-04] MEDS ORDERED: LACTATED RINGERS 1,000 ML IV ONE (13:21)
[2019-08-04] MEDS ORDERED: LACTATED RINGERS 1,000 ML IV STA (13:47)
--- NOTE | 2019-08-04 13:52 | Progress Note-Pre Operative ---
Pre-Operative Progress Note H&P Reviewed The H&P was reviewed, patient examined and no changes noted. Date Seen by Provider: Aug 04, 2019 Time Seen by Provider: 13:51 Date H&P Reviewed: Aug 04, 2019 Time H&P Reviewed: 13:51 Pre-Operative Diagnosis: colovesicluar fistula, history of perforated diverticulitis ROHAN MACHADO DO Aug 04, 2019 13:52
[2019-08-04 14:00] VITALS: BP 169/77
[2019-08-04] MEDS ORDERED: proPOfol 200 MG/20 ML (DIPRIVAN) VIAL IV ONE (14:14)
[2019-08-04 14:50] VITALS: BP 168/81
[2019-08-04 14:55] VITALS: BP 208/84
[2019-08-04 15:00] VITALS: BP 208/102
--- NOTE | 2019-08-04 15:00 | Progress Note-Post Operative ---
Post-Operative Progess Note Surgeon (s)/Director Chemistry (s) Surgeon ROHAN MACHADO DO Director Chemistry: na Pre-Operative Diagnosis colovesicluar fistula, history of perforated diverticulitis Post-Operative Diagnosis poor prep Procedure & Operative Findings Date of Procedure 08/04/19 Procedure Performed/Findings flex sig incomplete colonoscopy Anesthesia Type per mda Estimated Blood Loss Estimated blood loss (mL): none Specimens/Packing Specimens Removed none ROHAN MACHADO DO Aug 04, 2019 15:00
--- NOTE | 2019-08-04 15:03 | Discharge Inst-Simple/Standard ---
Discharge Inst-Standard Patient Instructions/Follow Up Plan of Care/Instructions/FU: Complete GOLYTELY prep today and then nothing to drink after midnight. Clear liquids today and nothing to drink after midnight. Colonoscopy tomorrow since poor prep today. Activity as Tolerated: Yes Discharge Diet: Liquid Diet ROHAN MACHADO DO Aug 04, 2019 15:03
--- NOTE | 2019-08-04 15:06 | Anesthesia-General Post-Op ---
MAC Patient Condition Mental Status/LOC: Same as Preop Cardiovascular: Satisfactory Nausea/Vomiting: Absent Respiratory: Satisfactory Pain: Controlled Complications: Absent Post Op Complications Complications None Follow Up Care/Instructions Patient Instructions None needed. Anesthesiology Discharge Order Discharge Order Patient is doing well, no complaints, stable vital signs, no apparent adverse anesthesia problems. ASHOK LEACH DO Aug 04, 2019 15:06
[2019-08-04] MEDS ORDERED: GOLYTELY POWDER 4000 ML BTL PO NR (15:15)
[2019-08-04 15:30] VITALS: BP 181/79
[2019-08-04 16:20] VITALS: BP 181/79
--- NOTE | 2019-08-04 22:41 | OPERATIVE REPORT ---
DATE OF SERVICE: 08/04/2019 PREOPERATIVE DIAGNOSES: Colovesicular fistula, history of perforated diverticulitis. POSTOPERATIVE DIAGNOSIS: Poor prep. PROCEDURE: Flexible sigmoidoscopy, incomplete colonoscopy. SURGEON: Rohan Mas DO ANESTHESIA: Per MDA. ESTIMATED BLOOD LOSS: None. COMPLICATIONS: None. INDICATIONS: The patient is a 79-year-old female with colovesicular fistula likely from perforated diverticulitis. The patient was explained risks and benefits of having colonoscopy performed. She understands risks and benefits and wished to proceed with procedure. Consent was signed in the chart. DESCRIPTION OF PROCEDURE: The patient was taken to the endoscopy suite, placed in left lateral recumbent position. Timeout was performed. Digital rectal exam was performed. There were no palpable polyps, mass or ulcerations. The scope was inserted in the rectum encountering a large amount of soft stool. started to irrigate and the scope was advanced through the rectum into the sigmoid colon and then could not visualize any further. The procedure was then aborted. Scope was then slowly retracted back noting no other pathology visualized except for lot of stool. RECOMMENDATIONS: The patient will re-prep today and come for repeat colonoscopy tomorrow. Job ID: [id number] DocumentID: [id number] Dictated Date: 08/04/2019 15:05:34 Truck Mechanic Date: 08/04/2019 22:40:55 Dictated By: ROHAN MAS DO
== END 2019-08-04 16:20 | disposition home or self-care (01) ==
LOC: ENDO 13:18
PROVIDERS: ATTEND Surgery
DX: K63.2 Fistula of intestine (principal); I25.10 Atherosclerotic heart disease of native coronary artery without angina pectoris; I11.0 Hypertensive heart disease with heart failure; I50.9 Heart failure, unspecified; E11.9 Type 2 diabetes mellitus without complications; F41.9 Anxiety disorder, unspecified; F32.9 Major depressive disorder, single episode, unspecified; Z95.1 Presence of aortocoronary bypass graft; Z88.8 Allergy status to other drugs, medicaments and biological substances; Z91.013 Allergy to seafood; Z79.899 Other long term (current) drug therapy; Z79.891 Long term (current) use of opiate analgesic; Z79.84 Long term (current) use of oral hypoglycemic drugs; Z86.73 Personal history of transient ischemic attack (TIA), and cerebral infarction without residual deficits; Z87.891 Personal history of nicotine dependence; Z90.710 Acquired absence of both cervix and uterus

== ENCOUNTER 2019-08-05 07:26 | Day surgery (SDC) | payer MEDICARE ==
[~2019-08-05] VITALS: Ht 152.4 cm; Wt 68.1 kg
[2019-08-05] MEDS ORDERED: LACTATED RINGERS 1,000 ML IV ONE (07:38)
[2019-08-05 07:50] VITALS: BP 181/68
[2019-08-05] MEDS ORDERED: LACTATED RINGERS 1,000 ML IV STA (07:57)
--- NOTE | 2019-08-05 07:58 | Progress Note-Pre Operative ---
Pre-Operative Progress Note H&P Reviewed The H&P was reviewed, patient examined and no changes noted. Date Seen by Provider: Aug 05, 2019 Time Seen by Provider: 07:57 Date H&P Reviewed: Aug 05, 2019 Time H&P Reviewed: 07:57 Pre-Operative Diagnosis: colovesicular fistula, hx perf diverticulitis ROHAN MACHADO DO Aug 05, 2019 07:58
[2019-08-05] MEDS ORDERED: PROPOFOL INJECTION 50 ML IV ONE (08:58)
[2019-08-05 10:28] VITALS: BP 159/69
[2019-08-05 10:40] VITALS: BP 112/74
--- NOTE | 2019-08-05 22:35 | OPERATIVE REPORT ---
DATE OF SERVICE: 08/05/2019 PREOPERATIVE DIAGNOSES: Colovesical fistula, history of perforated diverticulitis. PROCEDURE: Colonoscopy. SURGEON: Rohan Mas DO ANESTHESIA: Per DATA ENTRY ASSISTANT. ESTIMATED BLOOD LOSS: None. COMPLICATIONS: None. INDICATIONS: The patient is a 79-year-old female with a history of perforated diverticulitis and colovesicular fistula. She understands risks and benefits of procedure and wished to proceed with procedure. Consent was signed in the chart. DESCRIPTION OF PROCEDURE: The patient was taken to the endoscopy suite, placed in left lateral recumbent position. Timeout was performed. Digital rectal exam was performed. There were no palpable polyps, masses or ulcerations. Scope was inserted in the rectum, advanced all the way to the cecum. Through the sigmoid colon, difficult to navigate scope. The patient will be repositioned multiple times, but once through the sigmoid colon, no difficulty getting to the cecum. Prep was adequate. Scope was then slowly retracted back. No polyps, masses or ulcerations in the cecum, ascending, transverse, descending and sigmoid colon. In the sigmoid colon, moderate amount of diverticulosis present. Scope was then continuously retracted back into the rectum where it was also retroflexed noting no other pathology. Scope was returned to its normal position, slowly withdrawn until completely removed. The patient tolerated procedure well without any complications. She was taken to recovery room in stable condition. RECOMMENDATIONS: We will discuss surgical options. The patient will need risk stratification. Any issues before 2 weeks, the patient will be seen at that time; otherwise, followup and proceed from there. Job ID: [id number] DocumentID: [id number] Dictated Date: 08/05/2019 14:15:16 Dental Claims Processor Date: 08/05/2019 22:34:34 Dictated By: ROHAN MAS DO
== END 2019-08-05 10:45 ==
LOC: ENDO 07:26
PROVIDERS: ATTEND Surgery
DX: K63.2 Fistula of intestine (principal); I11.0 Hypertensive heart disease with heart failure; I50.9 Heart failure, unspecified; I25.2 Old myocardial infarction; I25.10 Atherosclerotic heart disease of native coronary artery without angina pectoris; Z87.19 Personal history of other diseases of the digestive system; Z88.8 Allergy status to other drugs, medicaments and biological substances; Z91.013 Allergy to seafood; Z94.84 Stem cells transplant status; Z79.899 Other long term (current) drug therapy; Z79.82 Long term (current) use of aspirin; Z95.1 Presence of aortocoronary bypass graft; Z90.710 Acquired absence of both cervix and uterus; Z87.891 Personal history of nicotine dependence

== ENCOUNTER 2019-08-21 10:27 | Outpatient (CLI) | payer MEDICARE ==
[2019-08-21] MEDS ORDERED: RT-ALBUTEROL SULF 2.5 MG/3 ML PRE-MIX VIAL ONE (10:57)
[2019-08-21] MEDS ORDERED: RT-ALBUTEROL SULF 2.5 MG/3 ML PRE-MIX VIAL INH ONE (11:00)
[2019-08-21] MEDS ORDERED: HOLD METFORMIN - RECEIVED CONTRAST 20 ML VIAL IV SCH (11:15)
[2019-08-21] MEDS ORDERED: NS 100 ML (IVPB) BAG IV ONE (11:15)
[2019-08-21] MEDS ORDERED: CATHETER FLUSH 10 ML SYR IV PRN (11:15)
[2019-08-21] MEDS ORDERED: IOHEXOL 350 MG/ML 100 ML (OMNIPAQUE 350) VIAL IV ONE (11:15)
[2019-08-21 11:45] LABS: BUN/CREATININE RATIO 18; CREATININE SERUM 0.85 MG/DL (0.60-1.30); GFR ESTIMATED > 60
--- NOTE | 2019-08-21 17:46 | Diagnostic Imaging Report ---
PROCEDURE: CT chest with contrast only. TECHNIQUE: Multiple contiguous axial images were obtained through the chest after administration of intravenous contrast. Auto Exposure Controls were utilized during the CT exam to meet ALARA standards for radiation dose reduction. INDICATION: Dyspnea. FINDINGS: There are no prior CT chest examinations available for comparison. The CT abdomen/pelvis exam of 06/04/2019 noted elevation of the left hemidiaphragm with adjacent atelectasis. There is also cardiomegaly and sternotomy changes. Those findings are again evident on this study and do not seem to have changed significantly. The left upper lung and the right lung are generally clear. There are emphysematous changes involving both lungs. Furthermore, there is thick calcification at the pleural surface along the medial aspect of the left upper lobe and to lesser extent the left lower lobe. The pulmonary arteries were not well opacified. There is no definite defect to suggest pulmonary embolus. The aorta is not abnormally dilated and there no sign of dissection. There is no mediastinal or hilar adenopathy. The thyroid gland is generally unremarkable. The sections through the upper abdomen show that there is fatty metamorphosis of the liver. This was also present on the prior exam. The left renal pelvis does seem more distended than noted on the prior study. There is no sign of an obstructive calculus but the left ureter was not visualized in its entirety. If further evaluation for obstruction of the left collecting system is desired, then CT of the abdomen and pelvis would be recommended. The bone windows show no sign of fracture or of destructive lesion. IMPRESSION: 1. There is chronic pulmonary disease, cardiomegaly, coronary artery disease, and evidence of prior cardiac surgery. There is no sign of an acute cardiopulmonary abnormality, however. 2. The dilated appearance of the left renal pelvis is of uncertain etiology. Considerations and recommendations, as above. Dictated by: Dictated on workstation # [id number]
== END 2019-08-21 12:55 | disposition home or self-care (01) ==
LOC: RAD 10:27
PROVIDERS: ATTEND Nurse Practitioner Family
DX: G47.10 Hypersomnia, unspecified (principal); K76.9 Liver disease, unspecified; I51.7 Cardiomegaly; I25.10 Atherosclerotic heart disease of native coronary artery without angina pectoris; J30.9 Allergic rhinitis, unspecified; E66.01 Morbid (severe) obesity due to excess calories; J98.11 Atelectasis
CPT/HCPCS: 36415; 71260; 82565; 84520; 94060

== ENCOUNTER 2019-10-15 10:43 | Outpatient (RCR) | payer MEDICARE ==
[2019-08-12 09:47] LABS: BASOPHILS % (AUTO) 0 % (0-10); EOSINOPHILS # (AUTO) 0.3 10^3/uL (0.0-0.3); EOSINOPHILS % (AUTO) 2 % (0-10); HEMATOCRIT 28 % (35-52); HEMOGLOBIN 8.6 G/DL (11.5-16.0); LYMPHOCYTES # (AUTO) 3.7 X 10^3 (1.0-4.0); LYMPHOCYTES % (AUTO) 28 % (12-44); MEAN CORPUSCULAR HEMOGLOBIN 26 PG (25-34); MEAN CORPUSCULAR HGB CONC 30 G/DL (32-36); MEAN CORPUSCULAR VOLUME 86 FL (80-99); MEAN PLATELET VOLUME 8.7 FL (7.4-10.4); MONOCYTES # (AUTO) 0.9 X 10^3 (0.0-1.0); MONOCYTES % (AUTO) 7 % (0-12); NEUTROPHILS # (AUTO) 8.4 X 10^3 (1.8-7.8); NEUTROPHILS % (AUTO) 63 % (42-75); PLATELET COUNT 488 10^3/uL (130-400); RED CELL DISTRIBUTION WIDTH 15.1 % (10.0-14.5); WHITE BLOOD COUNT 13.3 10^3/uL (4.3-11.0)
[2019-08-12 10:07] LABS: ALBUMIN 3.7 GM/DL (3.2-4.5); BILIRUBIN,TOTAL 0.3 MG/DL (0.1-1.0); CALCIUM 9.7 MG/DL (8.5-10.1); CREATININE SERUM 1.11 MG/DL (0.60-1.30); POTASSIUM 4.9 MMOL/L (3.6-5.0); TOTAL PROTEIN 7.7 GM/DL (6.4-8.2)
[2019-10-15 11:06] LABS: BASOPHILS % (AUTO) 0 % (0-10); EOSINOPHILS # (AUTO) 0.1 10^3/uL (0.0-0.3); EOSINOPHILS % (AUTO) 1 % (0-10); HEMATOCRIT 31 % (35-52); HEMOGLOBIN 9.5 G/DL (11.5-16.0); LYMPHOCYTES % (AUTO) 25 % (12-44); MEAN CORPUSCULAR HEMOGLOBIN 28 PG (25-34); MEAN CORPUSCULAR HGB CONC 30 G/DL (32-36); MEAN CORPUSCULAR VOLUME 91 FL (80-99); MEAN PLATELET VOLUME 9.1 FL (7.4-10.4); MONOCYTES % (AUTO) 8 % (0-12); NEUTROPHILS # (AUTO) 7.9 X 10^3 (1.8-7.8); NEUTROPHILS % (AUTO) 66 % (42-75); PLATELET COUNT 462 10^3/uL (130-400); RED CELL DISTRIBUTION WIDTH 14.2 % (10.0-14.5); WHITE BLOOD COUNT 11.9 10^3/uL (4.3-11.0)
== END 2019-11-10 | disposition home or self-care (01) ==
LOC: ONC 10:43
PROVIDERS: ATTEND Internal Medicine Hematology & Oncology
DX: D64.9 Anemia, unspecified (principal)
CPT/HCPCS: 36415; 80053; 82668; 82728; 83540; 84238; 85025; 99213; 99214

== ENCOUNTER → 2020-01-07 | Outpatient (CLI) | payer MEDICARE, MEDICAID ==
[~2020-01-07] MED LIST changes: +HOLD METFORMIN - RECEIVED CONTRAST 20 ML VIAL IV SCH; +IOHEXOL 350 MG/ML 100 ML (OMNIPAQUE 350) VIAL IV ONE; -METO-370 PO; +METO50TA7 PO
[2020-01-07 07:27] LABS: BUN/CREATININE RATIO 16; CREATININE SERUM 0.77 MG/DL (0.60-1.30); GFR ESTIMATED > 60
--- NOTE | 2020-01-07 09:12 | Diagnostic Imaging Report ---
EXAMINATION: CT Abdomen and Pelvis with intravenous contrast. TECHNIQUE: Multiple contiguous axial images were obtained through the abdomen and pelvis after the uneventful administration of intravenous contrast. All CT scans use one or more of the following dose optimizing techniques: automated exposure control, MA and/or KvP adjustment based on a patient size and exam type, or iterative reconstruction. INDICATION: Hematuria. COMPARISON: 06/04/2019 FINDINGS: Limited views of the lower thorax show mild left base atelectasis. There has been median sternotomy. Left hemidiaphragm is elevated. The liver is normal without focal lesion. There is no biliary ductal dilation. Gallbladder is normal. Pancreas is normal. Spleen is normal. Adrenal glands are normal. The kidneys are normal. There is no hydronephrosis. There is a thick-walled gas and fluid collection between the uterus and urinary bladder which measures 4.7 x 5.7 cm (series 3, image 66). This previously measured 3.7 x 2.8 cm. Previously seen inflammation in the sigmoid colon has improved but there is surrounding stranding which may be chronic scarring related to prior diverticulitis. Urinary bladder is thick-walled and deviated to the right and there is gas within the bladder. There is also gas within the vagina. No free fluid or air. No abdominal or pelvic lymphadenopathy. Aorta is normal in caliber without aneurysm. There are no suspicious osseus lesions. IMPRESSION: 1. Thick-walled gas and fluid collection between the urinary bladder and uterus with gas present within the vagina and bladder. There is severe sigmoid diverticulitis and there is persistent stranding about the sigmoid colon which may represent scarring versus acute inflammation. Overall, findings are favored to reflect a diverticular abscess with fistulization of the sigmoid colon to the bladder and possibly uterus/vagina as well. Dictated by: Dictated on workstation # [id number]
== END ==
LOC: RAD 06:51
PROVIDERS: ATTEND Urology
DX: K57.32 Diverticulitis of large intestine without perforation or abscess without bleeding (principal); Z87.440 Personal history of urinary (tract) infections
CPT/HCPCS: 36415; 74177; 82565; 84520

== ENCOUNTER 2020-01-14 10:22 | Outpatient (RCR) | payer MEDICARE ==
[~2020-01-14 10:22] MED LIST changes: +ACHD5005 PO; -CETI10TA20 PO; +CETI10TA21 PO; -HOLD METFORMIN - RECEIVED CONTRAST 20 ML VIAL IV SCH; -HYDR-3812 PO; -IOHEXOL 350 MG/ML 100 ML (OMNIPAQUE 350) VIAL IV ONE; -TIZA2TAB4 PO; +TIZA2TAB7 PO; -TRAZ-190 PO; +TRAZ-227 PO
[2020-01-14 10:51] LABS: BASOPHILS # (AUTO) 0.1 10^3/uL (0.0-0.1); BASOPHILS % (AUTO) 1 % (0-10); EOSINOPHILS # (AUTO) 0.1 10^3/uL (0.0-0.3); EOSINOPHILS % (AUTO) 1 % (0-10); HEMATOCRIT 32 % (35-52); HEMOGLOBIN 9.7 G/DL (11.5-16.0); LYMPHOCYTES # (AUTO) 2.9 X 10^3 (1.0-4.0); LYMPHOCYTES % (AUTO) 19 % (12-44); MEAN CORPUSCULAR HEMOGLOBIN 29 PG (25-34); MEAN CORPUSCULAR HGB CONC 31 G/DL (32-36); MEAN CORPUSCULAR VOLUME 94 FL (80-99); MEAN PLATELET VOLUME 8.6 FL (7.4-10.4); MONOCYTES % (AUTO) 6 % (0-12); NEUTROPHILS # (AUTO) 11.5 X 10^3 (1.8-7.8); NEUTROPHILS % (AUTO) 74 % (42-75); PLATELET COUNT 483 10^3/uL (130-400); RED CELL DISTRIBUTION WIDTH 14.1 % (10.0-14.5); WHITE BLOOD COUNT 15.5 10^3/uL (4.3-11.0)
== END 2020-04-13 | disposition home or self-care (01) ==
LOC: ONC 10:22
PROVIDERS: ATTEND Internal Medicine Hematology & Oncology
DX: D64.9 Anemia, unspecified (principal)
CPT/HCPCS: 85025; 99213

== ENCOUNTER → 2021-01-26 | Outpatient (CLI) | payer MEDICARE, MEDICAID ==
[~2021-01-26] MED LIST changes: -CETI10TA21 PO; +CETI10TA49 PO; -CYAN500T62 PO; +CYAN500T8 PO; -LISI-556 PO; +LISI-729 PO; +SERT-413 PO; -SERT50TA9 PO; +TIZA-169 PO; -TIZA2TAB7 PO
== END ==
LOC: WOUNDCARE 10:28
PROVIDERS: ATTEND Orthopaedic Surgery Hand Surgery
DX: E11.40 Type 2 diabetes mellitus with diabetic neuropathy, unspecified (principal); M62.81 Muscle weakness (generalized)
CPT/HCPCS: 99212

== ENCOUNTER → 2021-01-30 | Outpatient (CLI) | payer MEDICARE, MEDICAID ==
[~2021-01-30] MED LIST changes: +DIATRIZOATE MEGLUM/SODIUM 37% 120 ML (GASTROGRAFIN) PO ONE
--- NOTE | 2021-01-30 08:45 | Diagnostic Imaging Report ---
PROCEDURE: CT abdomen and pelvis without contrast. TECHNIQUE: Multiple contiguous axial images were obtained through the abdomen and pelvis without the use of intravenous contrast. Auto Exposure Controls were utilized during the CT exam to meet ALARA standards for radiation dose reduction. INDICATION: Periumbilical pain. Study is performed to evaluate for a rectovesicular fistula. Comparison is made with prior CT from 01/07/2020. FINDINGS: The patient did receive oral and rectal contrast. Patient was unable to hold the rectal barium in. There was a small amount of barium that was able to go into the rectum and sigmoid colon. The lung bases are clear. Liver and gallbladder are unremarkable. Pancreas and spleen are unremarkable. No adrenal mass is detected. Kidneys are without calculi or hydronephrosis. Aorta is heavily calcified but nonaneurysmal. The bowel loops are normal caliber. There is moderate stool throughout the colon. There appears to be an area of significant wall thickening versus mass in the region of the sigmoid colon. There is a small amount of gas within the urinary bladder which could be secondary to fistula but no definite contrast within the bladder is detected. Uterus unremarkable. There is no free fluid or fluid collection. IMPRESSION: 1. There is an area of wall thickening versus mass involving the sigmoid colon. Correlation with colonoscopy is recommended. 2. Small amount of gas within the urinary bladder which can be secondary to fistula. No definite contrast within the urinary bladder is detected. Dictated by: Dictated on workstation # [id number]
== END ==
LOC: RAD 08:15
PROVIDERS: ATTEND Surgery
DX: R10.33 Periumbilical pain (principal)
CPT/HCPCS: 74176

== ENCOUNTER → 2021-02-10 | Outpatient (CLI) | payer MEDICARE, MEDICAID ==
[~2021-02-10] MED LIST changes: -DIATRIZOATE MEGLUM/SODIUM 37% 120 ML (GASTROGRAFIN) PO ONE; +IOHEXOL 350 MG/ML 100 ML (OMNIPAQUE 350) VIAL IV ONE
--- NOTE | 2021-02-10 13:36 | Diagnostic Imaging Report ---
INDICATION: Evaluate for colovesical fistula. Guo catheter was inserted into the patient's urinary bladder. Approximately 180 mL mixture of Omnipaque contrast and water was injected through the Guo. Axial imaging was then performed through the abdomen and pelvis without intravenous contrast. Sagittal and coronal reformations were also performed. The lung bases are clear. The liver and gallbladder are unremarkable. There is no biliary ductal dilatation. Pancreas and spleen are unremarkable. No adrenal mass is detected. No renal calculi are detected. Aorta is heavily calcified. Contrast is seen within the urinary bladder from infusion via Guo catheter. There is trace amount of gas within the bladder, likely introduced during Guo insertion. There is a large thick-walled stool-filled collection along the left aspect of the urinary bladder measuring 8.8 x 5.1 cm. This is closely adherent to the adjacent bladder. No definite contrast within this collection is seen. This does appear to be separate from the adjacent sigmoid colon which again remains thick-walled and does contain occasional diverticula. No bowel obstruction is seen. There is no free fluid. Uterus is unremarkable. IMPRESSION: There is a thick-walled stool-filled collection in the left para-midline pelvis closely opposed to the left bladder wall. This is adjacent to a thick-walled sigmoid loop, as well. Features are concerning for either a perforated sigmoid neoplasm or perhaps a perforated diverticulitis with development of a walled off stool-filled abscess. This collection did appear to show some contrast on the CT study from 01/30/2021 after contrast was administered rectally. Therefore this likely communicates with a colonic loop, perhaps the sigmoid. No other significant abnormality is seen. Dictated by: Dictated on workstation # [id number]
== END ==
LOC: RAD 11:02
PROVIDERS: ATTEND Surgery
DX: N32.1 Vesicointestinal fistula (principal)
CPT/HCPCS: 72192

== ENCOUNTER 2021-03-07 05:44 | Outpatient (CLI) | payer MEDICARE, MEDICAID ==
[~2021-03-07] VITALS: Ht 152.4 cm; Wt 53.1 kg
[~2021-03-07 05:44] MED LIST changes: -IOHEXOL 350 MG/ML 100 ML (OMNIPAQUE 350) VIAL IV ONE
== END 2021-03-08 09:46 | disposition home or self-care (01) ==
LOC: PREOP 05:44
PROVIDERS: ATTEND Surgery
DX: Z01.818 Encounter for other preprocedural examination (principal)

== ENCOUNTER 2021-03-09 13:17 | Outpatient (RCR) | payer MEDICARE ==
[2021-03-09 13:36] LABS: BASOPHILS # (AUTO) 0.1 10^3/uL (0.0-0.1); BASOPHILS % (AUTO) 1 % (0-10); EOSINOPHILS # (AUTO) 0.2 10^3/uL (0.0-0.3); EOSINOPHILS % (AUTO) 1 % (0-10); HEMATOCRIT 37 % (35-52); HEMOGLOBIN 11.2 g/dL (11.5-16.0); LYMPHOCYTES # (AUTO) 5.1 10^3/uL (1.0-4.0); LYMPHOCYTES % (AUTO) 36 % (12-44); MEAN CORPUSCULAR HEMOGLOBIN 28 pg (25-34); MEAN CORPUSCULAR HGB CONC 30 g/dL (32-36); MEAN CORPUSCULAR VOLUME 93 fL (80-99); MEAN PLATELET VOLUME 8.6 fL (9.0-12.2); MONOCYTES # (AUTO) 1.5 10^3/uL (0.0-1.0); MONOCYTES % (AUTO) 10 % (0-12); NEUTROPHILS # (AUTO) 7.1 10^3/uL (1.8-7.8); NEUTROPHILS % (AUTO) 51 % (42-75); PLATELET COUNT 487 10^3/uL (130-400)
[2021-03-09 13:58] LABS: ALANINE AMINOTRANSFERASE 7 U/L (0-55); ALBUMIN 3.5 GM/DL (3.2-4.5); ALKALINE PHOSPHATASE 69 U/L (40-136); BILIRUBIN,TOTAL 0.2 MG/DL (0.1-1.0); BUN/CREATININE RATIO 18; CALCIUM 9.2 MG/DL (8.5-10.1); CARBON DIOXIDE 27 MMOL/L (21-32); CHLORIDE 90 MMOL/L (98-107); CREATININE SERUM 0.83 MG/DL (0.60-1.30); GFR ESTIMATED > 60; GLUCOSE 371 MG/DL (70-105); POTASSIUM 4.5 MMOL/L (3.6-5.0); SODIUM 131 MMOL/L (135-145); TOTAL PROTEIN 7.5 GM/DL (6.4-8.2)
[2021-05-04] MEDS ORDERED: L. A1TAB14 PO (14:36)
[2021-05-04] MEDS ORDERED: NYST1000 PO (14:36)
[2021-05-04] MEDS ORDERED: CYCL5TAB PO (14:36)
[2021-05-04] MEDS ORDERED: NF-NACL1GT PO (14:36)
[2021-05-04] MEDS ORDERED: ACHD5005 PO (14:36)
[2021-05-04] MEDS ORDERED: POLY17PO54 PO (14:36)
[2021-05-04] MEDS ORDERED: ESTR42.52 VG (14:36)
[2021-05-04] MEDS ORDERED: MTP25TSR PO (14:36)
[2021-05-04] MEDS ORDERED: OXYB10TA29 PO (14:36)
[2021-05-04] MEDS ORDERED: EMPA25TA PO (14:36)
[2021-05-04] MEDS ORDERED: ACET325T38 PO (14:36)
[2021-05-04] MEDS ORDERED: TROL35.4 TP (14:36)
[2021-05-04] MEDS ORDERED: MICO10PO MC (14:36)
[2021-05-04] MEDS ORDERED: CYAN500T44 PO (14:36)
[2021-05-04] MEDS ORDERED: IRON-17 PO (14:36)
[2021-05-04] MEDS ORDERED: ATOR20TA66 PO (14:36)
[2021-05-04] MEDS ORDERED: RT-ALBUINH IH (14:36)
[2021-05-06] MEDS ORDERED: ACHD5005 PO (12:22)
[2021-05-19] MEDS ORDERED: ASCO-262 PO (11:49)
[2021-05-19] MEDS ORDERED: [UNRECOGNIZED DRUG - CODE] TP ×2 (11:49→11:56)
[2021-05-19] MEDS ORDERED: LORA-404 PO (11:49)
[2021-05-19] MEDS ORDERED: [UNRECOGNIZED DRUG - CODE] TP (11:49)
[2021-05-19] MEDS ORDERED: KETO15CR2 TOP (11:49)
[2021-05-19] MEDS ORDERED: CHOL10007 PO (11:49)
[2021-05-19] MEDS ORDERED: METH114C4 TP (11:49)
[2021-05-19] MEDS ORDERED: TR1C15 TP ×2 (11:49)
[2021-05-19] MEDS ORDERED: UBID30CA20 PO (11:49)
[2021-05-19] MEDS ORDERED: MICO85PO4 TP (11:49)
[2021-05-19] MEDS ORDERED: ACET650T41 PO (11:49)
[2021-05-20] MEDS ORDERED: FLUC200T5 PO (12:34)
== END 2021-06-07 | disposition home or self-care (01) ==
LOC: ONC 13:17
PROVIDERS: ATTEND Internal Medicine Hematology & Oncology
DX: D72.829 Elevated white blood cell count, unspecified (principal); D47.3 Essential (hemorrhagic) thrombocythemia; D63.1 Anemia in chronic kidney disease; I13.10 Hypertensive heart and chronic kidney disease without heart failure, with stage 1 through stage 4 chronic kidney disease, or unspecified chronic kidney disease; E11.22 Type 2 diabetes mellitus with diabetic chronic kidney disease; N18.9 Chronic kidney disease, unspecified
CPT/HCPCS: 80053; 85025; G0463; 99213

== ENCOUNTER 2021-03-14 09:17 | Day surgery (SDC) | payer MEDICARE, MEDICAID ==
[~2021-03-14] VITALS: Ht 152.4 cm; Wt 53.1 kg
[2021-03-14] MEDS ORDERED: LACTATED RINGERS 1,000 ML IV STA (09:24)
[2021-03-14] MEDS ORDERED: LACTATED RINGERS 1,000 ML IV ONE (09:25)
--- NOTE | 2021-03-14 09:26 | Progress Note-Pre Operative ---
Pre-Operative Progress Note H&P Reviewed The H&P was reviewed, patient examined and no changes noted. Date Seen by Provider: Mar 14, 2021 Time Seen by Provider: : Date H&P Reviewed: Mar 14, 2021 Time H&P Reviewed: : Pre-Operative Diagnosis: history of diverticulitis, suprapubic pain ROHAN MACHADO DO Mar 14, 2021 09:26
[2021-03-14 09:43] VITALS: BP 160/69
[2021-03-14] MEDS ORDERED: proPOfol 200 MG/20 ML (DIPRIVAN) VIAL IV ONE (09:52)
[2021-03-14] MEDS ORDERED: MIDAZOLAM 2 MG/2 ML (VERSED) VIAL ONE (09:52)
[2021-03-14] MEDS ORDERED: KETAMINE/NaCl 50 MG/5 ML SYRINGE (ED ONLY) ONE (09:52)
[2021-03-14 10:35] VITALS: BP 165/78
[2021-03-14 10:39] VITALS: BP 193/84
--- NOTE | 2021-03-14 10:41 | Progress Note-Post Operative ---
Post-Operative Progess Note Surgeon (s)/Top Lift Trimmer (s) Surgeon ROHAN MACHADO DO Top Lift Trimmer: na Pre-Operative Diagnosis history of diverticulitis, suprapubic pain Post-Operative Diagnosis diverticlosis, incomplete colonoscopy Procedure & Operative Findings Date of Procedure 03/14/21 Procedure Performed/Findings flex sig Anesthesia Type per mda Estimated Blood Loss Estimated blood loss (mL): none Specimens/Packing Specimens Removed na ROHAN MACHADO DO Mar 14, 2021 10:41
[2021-03-14 10:45] VITALS: BP 196/76
--- NOTE | 2021-03-14 10:49 | Discharge Inst-Simple/Standard ---
Discharge Inst-Standard Patient Instructions/Follow Up Plan of Care/Instructions/FU: 1-3 weeks maggy Activity as Tolerated: Yes Discharge Diet: Regular Diet ROHAN MACHADO DO Mar 14, 2021 10:49
[2021-03-14 11:12] VITALS: BP 171/69
[2021-03-14 11:14] VITALS: BP 171/69
--- NOTE | 2021-03-14 13:02 | Anesthesia-General Post-Op ---
MAC Patient Condition Mental Status/LOC: Same as Preop Cardiovascular: Satisfactory Nausea/Vomiting: Absent Respiratory: Satisfactory Pain: Controlled Complications: Absent Post Op Complications Complications None Follow Up Care/Instructions Patient Instructions None needed. Anesthesiology Discharge Order Discharge Order Patient was seen this morning after the procedure and she was doing well, no complaints, stable vital signs, no apparent adverse anesthesia problems. ASHOK LEACH DO Mar 14, 2021 13:02
--- NOTE | 2021-03-14 19:44 | OPERATIVE REPORT ---
DATE OF SERVICE: 03/14/2021 PREOPERATIVE DIAGNOSES: History of diverticulitis, suprapubic abdominal pain. POSTOPERATIVE DIAGNOSES: Diverticulosis and incomplete colonoscopy. PROCEDURE: Flexible sigmoidoscopy. SURGEON: Rohan Mas DO ANESTHESIA: Per MDA. ESTIMATED BLOOD LOSS: None. COMPLICATIONS: None. INDICATIONS: The patient is a 81-year-old female with extensive workup for likely colovesicular fistula. The patient with also history of diverticulitis and has been having suprapubic abdominal pain. She understands risks and benefits of procedure and wishes to proceed. Consent was signed in the chart. DESCRIPTION OF PROCEDURE: The patient was taken to the endoscopy suite, placed in left lateral recumbent position. Timeout was performed. Digital rectal exam was performed. No palpable polyps, masses or ulcerations. Scope was inserted in the rectum and started to be advanced through the sigmoid colon noting diverticulosis. The patient came to a point where there was no ability to visualize the lumen of the sigmoid colon, multiple areas of diverticulosis. The patient was repositioned multiple times, unable to visualize the lumen. Therefore, scope was then slowly retracted back. There were no polyps, masses or ulcerations within the visualized sigmoid and rectum. Scope was then inserted and retracted multiple times. Scope was then slowly retracted until completely removed. The patient tolerated procedure well without any complications. She was taken to recovery room in stable condition. RECOMMENDATIONS: After CT scan was performed, we will discuss with the patient and her family the possibility of surgical intervention. Job ID: [id number] DocumentID: [id number] Dictated Date: 03/14/2021 10:51:51 Study Assistant Date: 03/14/2021 19:43:32 Dictated By: ROHAN MAS DO
== END 2021-03-14 11:15 | disposition home or self-care (01) ==
LOC: ENDO 09:17
PROVIDERS: ATTEND Surgery
DX: K57.30 Diverticulosis of large intestine without perforation or abscess without bleeding (principal); I10 Essential (primary) hypertension; I25.119 Atherosclerotic heart disease of native coronary artery with unspecified angina pectoris; J44.9 Chronic obstructive pulmonary disease, unspecified; N32.1 Vesicointestinal fistula; E11.9 Type 2 diabetes mellitus without complications; E78.00 Pure hypercholesterolemia, unspecified; I25.2 Old myocardial infarction; M19.90 Unspecified osteoarthritis, unspecified site; F32.9 Major depressive disorder, single episode, unspecified; F41.9 Anxiety disorder, unspecified; Z79.899 Other long term (current) drug therapy; Z91.013 Allergy to seafood; Z95.1 Presence of aortocoronary bypass graft; Z91.010 Allergy to peanuts; Z88.8 Allergy status to other drugs, medicaments and biological substances; Z91.018 Allergy to other foods; Z79.84 Long term (current) use of oral hypoglycemic drugs; Z90.710 Acquired absence of both cervix and uterus; Z87.19 Personal history of other diseases of the digestive system; Z87.891 Personal history of nicotine dependence; Z79.891 Long term (current) use of opiate analgesic; Z83.3 Family history of diabetes mellitus

== ENCOUNTER 2021-05-04 05:34 | Outpatient (CLI) | payer MEDICARE, MEDICAID ==
[~2021-05-04] VITALS: Ht 152.4 cm; Wt 49.0 kg
[2021-05-04] MEDS ORDERED: L. A1TAB14 PO (14:36)
[2021-05-04] MEDS ORDERED: TROL35.4 TP (14:36)
[2021-05-04] MEDS ORDERED: ACHD5005 PO (14:36)
[2021-05-04] MEDS ORDERED: IRON-17 PO (14:36)
[2021-05-04] MEDS ORDERED: CYAN500T44 PO (14:36)
[2021-05-04] MEDS ORDERED: ESTR42.52 VG (14:36)
[2021-05-04] MEDS ORDERED: CYCL5TAB PO (14:36)
[2021-05-04] MEDS ORDERED: RT-ALBUINH IH (14:36)
[2021-05-04] MEDS ORDERED: EMPA25TA PO (14:36)
[2021-05-04] MEDS ORDERED: POLY17PO54 PO (14:36)
[2021-05-04] MEDS ORDERED: MICO10PO MC (14:36)
[2021-05-04] MEDS ORDERED: NF-NACL1GT PO (14:36)
[2021-05-04] MEDS ORDERED: ATOR20TA66 PO (14:36)
[2021-05-04] MEDS ORDERED: NYST1000 PO (14:36)
[2021-05-04] MEDS ORDERED: ACET325T38 PO (14:36)
[2021-05-04] MEDS ORDERED: MTP25TSR PO (14:36)
[2021-05-04] MEDS ORDERED: OXYB10TA29 PO (14:36)
== END 2021-05-04 14:47 | disposition home or self-care (01) ==
LOC: PREOP 05:34
PROVIDERS: ATTEND Surgery
DX: Z01.818 Encounter for other preprocedural examination (principal)

== ENCOUNTER 2021-05-06 10:21 | Emergency (ER) | payer MEDICARE, MEDICAID ==
[~2021-05-06] VITALS: Ht 152 cm; Wt 49.8 kg
[~2021-05-06 10:21] MED LIST changes: +ACET325T38 PO; +CYAN500T44 PO; +CYCL5TAB PO; +EMPA25TA PO; +ESTR42.52 VG; +L. A1TAB14 PO; +MICO10PO MC; +MTP25TSR PO; +NF-NACL1GT PO; +NYST1000 PO; +OXYB10TA29 PO; +POLY17PO54 PO; +RT-ALBUINH IH; +TROL35.4 TP
[2021-05-06] MEDS ORDERED: fentaNYL INJ 100 MCG/2 ML AMP IVP ONE (10:30)
[2021-05-06] MEDS ORDERED: NS IV 1000 ML 1,000 ML IV SCH (10:30)
[2021-05-06 10:38] LABS: BASOPHILS # (AUTO) 0.1 10^3/uL (0.0-0.1); BASOPHILS % (AUTO) 1 % (0-10); EOSINOPHILS # (AUTO) 0.1 10^3/uL (0.0-0.3); EOSINOPHILS % (AUTO) 1 % (0-10); HEMATOCRIT 33 % (35-52); HEMOGLOBIN 9.8 g/dL (11.5-16.0); LYMPHOCYTES # (AUTO) 3.6 10^3/uL (1.0-4.0); LYMPHOCYTES % (AUTO) 34 % (12-44); MEAN CORPUSCULAR HEMOGLOBIN 28 pg (25-34); MEAN CORPUSCULAR HGB CONC 30 g/dL (32-36); MEAN CORPUSCULAR VOLUME 93 fL (80-99); MEAN PLATELET VOLUME 8.3 fL (9.0-12.2); MONOCYTES % (AUTO) 10 % (0-12); NEUTROPHILS # (AUTO) 5.6 10^3/uL (1.8-7.8); NEUTROPHILS % (AUTO) 54 % (42-75); PLATELET COUNT 548 10^3/uL (130-400); WHITE BLOOD COUNT 10.4 10^3/uL (4.3-11.0)
--- NOTE | 2021-05-06 10:38 | ED Abdominal Pain ---
General Chief Complaint: Abdominal/GI Problems Stated Complaint: WOUND ON ABD Source of Information: Patient Exam Limitations: No Limitations History of Present Illness Date Seen by Provider: May 06, 2021 Time Seen by Provider: 10:15 Initial Comments Patient to the ER by EMS from [facility] with chief complaint of 4 days of painful discharge of stool-like material from the suprapubic region. She has a known colon mass, colonoscopy about a month ago by Dr. Machado. 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 Discussed the case with Dr. Machado and he says they were not aware of any communicating fistula externally and at that is new to him. Patient states she has about 8 out of 10 pain. She had hydrocodone at 8. Last time she had anything to eat or drink was at 8:00 when she had breakfast, 2-1/2 hours prior to arrival. She is not having any fever nausea vomiting dysuria discharge or difficulty passing stools by rectum. She has a history of hysterectomy and triple bypass. Allergies and Home Medications Allergies Coded Allergies: Fish Containing Products (Unverified Allergy, Unknown, 03/07/21) iodine (Unverified Allergy, Unknown, 03/07/21) peanut (Unverified Allergy, Unknown, 03/07/21) shrimp (Verified Allergy, Unknown, 04/30/19) Uncoded Allergies: POPCORN (Allergy, Unknown, 03/07/21) Home Medications Acetaminophen 325 Mg Tablet, 650 MG PO TID PRN for PAIN-BREAKTHROUGH, (Reported) Albuterol Sulfate 1 Puff Puff, 2 PUFF IH Q4H PRN for WHEEZING, (Reported) 1 PUFF = 90 MCG Atorvastatin Calcium 20 Mg Tablet, 20 MG PO HS, (Reported) Bisacodyl 5 Mg Tablet.dr, 10 MG PO BID, (Reported) Cetirizine HCl 10 Mg Tablet, 5 MG PO DAILY, (Reported) TAKES 1/2 (10MG) TABLET Cholecalciferol (Vitamin D3) 1,000 Unit Tablet, 2,000 UNITS PO DAILY, (Reported) Cyanocobalamin (Vitamin B-12) 500 Mcg Tablet, 500 MCG PO Q48H, (Reported) Cyclobenzaprine HCl 5 Mg Tablet, 5 MG PO Q8H PRN for MUSCLE SPASMS, (Reported) Empagliflozin 25 Mg Tablet, 25 MG PO DAILY, (Reported) Estradiol 42.5 Gm Cream.appl, 1 GM VG HS, (Reported) INSERT 1 GRAM VAGINALLY AT BEDTIME EVERY SATURDAY, SATURDAY, SATURDAY RELATED TO ACUTE VAGINITIS Fluticasone Propionate 16 Gm [place].susp, 1 SPRAY NS DAILY, (Reported) Furosemide 40 Mg Tablet, 40 MG PO DAILY, (Reported) Gabapentin 100 Mg Capsule, 200 MG PO HS, (Reported) TAKES 2 (100MG) CAPSULES Hydrocodone/Acetaminophen 1 Each Tablet, 1 TAB PO Q4H PRN for PAIN-BREAKTHROUGH, (Reported) Iron Ag,Ps/C/Fa6/B12/Zn/SA/Sto 1 Each Tablet, 1 EACH PO DAILY, (Reported) L. Acidophilus/L.bulgaricus 1 Each Tablet, 1 EACH PO DAILY, (Reported) Levothyroxine Sodium 25 Mcg Tablet, 25 MCG PO DAILY, (Reported) Lorazepam 0.5 Mg Tablet, 0.5 MG PO DAILY, (Reported) Magnesium Hydroxide 400 Mg/5 Ml Oral.susp, 30 ML PO DAILY PRN for CONSTIPATION- 7TH LINE, (Reported) Magnesium Oxide 400 Mg Tablet, 400 MG PO DAILY, (Reported) Menthol 118 Ml Gel..ml., TP Q6H PRN for SPASMS, (Reported) APPLY TO LOWER BACK Metoprolol Succinate 25 Mg Tab.er.24h, 25 MG PO DAILY, (Reported) Miconazole Nitrate 10 Gm Powder, 10 GM MC DAILY PRN, (Reported) Nystatin 100,000 Unit/1 Ml Oral.susp, 100,000 UNIT PO BID, (Reported) Ondansetron HCl 4 Mg Tab, 4 MG PO Q8H PRN for NAUSEA/VOMITING-1ST LINE, (Reported) Oxybutynin Chloride 10 Mg Tab.er.24, 10 MG PO DAILY, (Reported) Polyethylene Glycol 3350 17 Gm Powd.pack, 17 GM PO Q12H PRN for CONSTIPATION-1ST LINE, (Reported) Sennosides/Docusate Sodium 1 Each Tablet, 3 TAB PO DAILY, (Reported) Sertraline HCl 50 Mg Tablet, 50 MG PO DAILY, (Reported) Sodium Chloride 1 Gm Tab, 1 GM PO BID, (Reported) Trazodone HCl 100 Mg Tablet, 100 MG PO HS, (Reported) Trolamine Salicylate/Aloe Vera 35.4 Gm Cream..g., 35.4 GM TP Q8H PRN for PAIN-BREAKTHROUGH, (Reported) Ubidecarenone/Vit E Acetate 1 Each Capsule, 100 MG PO DAILY, (Reported) Patient Home Medication List Home Medication List Reviewed: Yes Review of Systems Review of Systems Constitutional: No chills, No diaphoresis EENTM: No Blurred Vision, No Double Vision Respiratory: Denies Cough, Denies Shortness of Air Cardiovascular: Denies Chest Pain, Denies Lightheadedness Gastrointestinal: See HPI, Abdominal Pain; Denies Constipated, Denies Diarrhea, Denies Nausea Genitourinary: Denies Burning, Denies Discharge Musculoskeletal: No back pain, No joint pain Skin: No pruritus, No rash Psychiatric/Neurological: Denies Headache, Denies Numbness All Other Systems Reviewed Negative Unless Noted: Yes Past Kczdgmv-Qmgkey-Edcbll Hx Patient Social History Alcohol Use: Denies Use Smoking Status: Former Smoker Type Used: Cigarettes Former Smoker, Quit: Nov 25, 1982 2nd Hand Smoke Exposure: No Recent Hopitalizations: No Immunizations Up To Date Date of Pneumonia Vaccine: Aug 28, 2019 Date of Influenza Vaccine: Aug 30, 2020 Seasonal Allergies Seasonal Allergies: No Past Medical History Surgeries: Yes (BYPASS GRAFT, FOOT MANIPULATION, FLEXIBLE DIAGNOSTIC CYSTOSCOPY) CABG, Hysterectomy Respiratory: Yes (COPD) COPD Currently Using CPAP: No Currently Using BIPAP: No Cardiac: Yes Coronary Artery Disease, Heart Attack, 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 Neurological: No 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 Disorders: 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 Sexually Transmitted Disease: No HIV/AIDS: No Genitourinary: Yes Renal Failure Gastrointestinal: Yes Diverticulosis Musculoskeletal: Yes Arthritis Endocrine: Yes Diabetes, Insulin dep HEENT: Yes (WEARS GLASSES) Loss of Vision: Denies Cancer: No Psychosocial: Yes Sleep Difficulties, Anxiety, Depression Integumentary: No Blood Disorders: No Adverse Reaction/Blood Tranf: No (N/A) Family Medical History Alzheimer's disease Cardiovascular disease 19 FATHER 19 MOTHER Diabetes mellitus 19 MOTHER No Pertinent Family Hx Physical Exam Vital Signs Vital Signs - First Documented 05/06/21 10:29 Temp 36.3 Pulse 79 Resp 18 B/P (MAP) 149/68 (95) Pulse Ox 100 Capillary Refill : Height/Weight/BMI Height: 0'60.00" Weight: 150lbs. 3.2oz. [id number]; 21.09 BMI Method:Stated General Appearance: WD/WN, mild distress HEENT: PERRL/EOMI, pharynx normal Neck: full range of motion, normal inspection Respiratory: lungs clear, normal breath sounds, no respiratory distress, no accessory muscle use Cardiovascular: normal peripheral pulses, regular rate, rhythm Peripheral Pulses: 2+ Radial Pulses (R), 2+ Radial Pulses (L) Gastrointestinal: normal bowel sounds, soft, other (Midline suprapubic region is a retracted, open fistula with black, tarry stool apparent at the os.) Extremities: normal range of motion, normal inspection, normal capillary refill Neurologic/Psychiatric: alert, normal mood/affect, oriented x 3 Progress/Results/Core Measures Results/Orders Lab Results Laboratory Tests Test 05/06/21 10:30 05/06/21 10:48 Range/Units White Blood Count 10.4 4.3-11.0 10^3/uL Red Blood Count 3.51 L 3.80-5.11 10^6/uL Hemoglobin 9.8 L 11.5-16.0 g/dL Hematocrit 33 L 35-52 % Mean Corpuscular Volume 93 80-99 fL Mean Corpuscular Hemoglobin 28 25-34 pg Mean Corpuscular Hemoglobin Concent 30 L 32-36 g/dL Red Cell Distribution Width 14.0 10.0-14.5 % Platelet Count 548 H 130-400 10^3/uL Mean Platelet Volume 8.3 L 9.0-12.2 fL Immature Granulocyte % (Auto) 1 % Neutrophils (%) (Auto) 54 42-75 % Lymphocytes (%) (Auto) 34 12-44 % Monocytes (%) (Auto) 10 0-12 % Eosinophils (%) (Auto) 1 0-10 % Basophils (%) (Auto) 1 0-10 % Neutrophils # (Auto) 5.6 1.8-7.8 10^3/uL Lymphocytes # (Auto) 3.6 1.0-4.0 10^3/uL Monocytes # (Auto) 1.0 0.0-1.0 10^3/uL Eosinophils # (Auto) 0.1 0.0-0.3 10^3/uL Basophils # (Auto) 0.1 0.0-0.1 10^3/uL Immature Granulocyte # (Auto) 0.1 0.0-0.1 10^3/uL Sodium Level 135 135-145 MMOL/L Potassium Level 4.4 3.6-5.0 MMOL/L Chloride Level 93 L 98-107 MMOL/L Carbon Dioxide Level 31 21-32 MMOL/L Anion Gap 11 5-14 MMOL/L Blood Urea Nitrogen 9 7-18 MG/DL Creatinine 0.79 0.60-1.30 MG/DL Estimat Glomerular Filtration Rate > 60 BUN/Creatinine Ratio 11 Glucose Level 291 H 70-105 MG/DL Calcium Level 9.5 8.5-10.1 MG/DL Corrected Calcium 10.1 8.5-10.1 MG/DL Total Bilirubin 0.3 0.1-1.0 MG/DL Aspartate Amino Transf (AST/SGOT) 12 5-34 U/L Alanine Aminotransferase (ALT/SGPT) 7 0-55 U/L Alkaline Phosphatase 65 40-136 U/L C-Reactive Protein High Sensitivity 24.33 H 0.00-0.50 MG/DL Total Protein 7.6 6.4-8.2 GM/DL Albumin 3.3 3.2-4.5 GM/DL Urine Color YELLOW Urine Clarity CLEAR Urine pH 7.0 5-9 Urine Specific [place] 1.010 L 1.016-1.022 Urine Protein NEGATIVE NEGATIVE Urine Glucose (UA) 3+ H NEGATIVE Urine Ketones NEGATIVE NEGATIVE Urine Nitrite NEGATIVE NEGATIVE Urine Bilirubin NEGATIVE NEGATIVE Urine Urobilinogen 0.2 < = 1.0 MG/DL Urine Leukocyte Esterase TRACE H NEGATIVE Urine RBC (Auto) NEGATIVE NEGATIVE Urine RBC NONE /HPF Urine WBC NONE /HPF Urine Crystals NONE /LPF Urine Bacteria TRACE /HPF Urine Casts NONE /LPF Urine Mucus NEGATIVE /LPF Urine Culture Indicated NO My Orders Orders - JANN LAKHANI Cbc With Automated Diff (05/06/21 10:29) Comprehensive Metabolic Panel (05/06/21 10:29) Hs C Reactive Protein (05/06/21 10:29) Type And Screen (05/06/21 10:29) Ed Iv/Invasive Line Start (05/06/21 10:29) Ns Iv 1000 Ml (Sodium Chloride 0.9%) (05/06/21 10:30) Fentanyl Inj (Sublimaze Injection) (05/06/21 10:30) Ua Culture If Indicated (05/06/21 10:29) Ct Abdomen/Pelvis Wo (05/06/21 11:04) Morphine Injection (Morphine Injection (05/06/21 12:10) Ondansetron Injection (Zofran Injectio (05/06/21 12:15) Medications Given in ED Current Medications Medications Dose Ordered Sig/Geeta Route Start Time Stop Time Status Last Admin Dose Admin Fentanyl Citrate 50 mcg ONCE ONCE IVP 05/06/21 10:30 05/06/21 10:34 DC 05/06/21 10:56 50 MCG Vital Signs/I&O 05/06/21 10:29 Temp 36.3 Pulse 79 Resp 18 B/P (MAP) 149/68 (95) Pulse Ox 100 Progress Progress Note : Time: 10:38 Progress Note Discussed the case with Dr. Machado and we are going to repeat a CT scan with contrast if she can tolerate it give her some IV fluids and pain medicine and check some labs. She has a septic vital signs. Because she is having pain we will give her fentanyl and reassess. Diagnostic Imaging Diagonstic Imaging: CT (With IV contrast) Plain Films/CT/US/NM/MRI: abdomen, pelvis Comments NAME: DARINEL [facility] REC#: [id number] PT STATUS: REG ER : 1940 PHYSICIAN: JANN LAKHANI MD ADMIT DATE: 05/06/21/ER Signed Date of Exam:05/06/21 CT ABDOMEN/PELVIS WO PROCEDURE: CT abdomen and pelvis without contrast. TECHNIQUE: Multiple contiguous axial images were obtained through the abdomen and pelvis without the use of intravenous contrast. Auto Exposure Controls were utilized during the CT exam to meet ALARA standards for radiation dose reduction. INDICATION: Abdominal pain. Colonic fistula in the suprapubic region. COMPARISON: 02/10/2021. FINDINGS: The heart is enlarged. Chronic scarring is seen in the left lung base. The liver, spleen, pancreas, adrenal glands, and kidneys have a normal noncontrast CT appearance. There is no pathologically enlarged mesenteric or retroperitoneal adenopathy. There is a fistula between the previously visualized thick-walled stool-filled collection in the pelvis left of the urinary bladder and the suprapubic soft tissues left of midline. The fistula tract measures 5.3 cm in length. The bowel loops are nondilated. There is no free fluid or free air. No acute osseous abnormalities. There is calcified aortic and iliac atherosclerotic plaque without aneurysm. There is air within the urinary bladder. There is no free air, loculated collection, or adenopathy in the pelvis. IMPRESSION: 1. Development of a fistula tract connecting the soft tissues of the suprapubic region left of midline and the previously visualized thick walled stool filled collection in the pelvis left of the urinary bladder. Findings may be neoplastic or represent complication's from perforated diverticulitis. 2. Air within the urinary bladder. Recommend correlation with recent instrumentation. Potential communication with the collection adjacent to the left aspect of the urinary bladder is also a possibility. 3. Cardiomegaly. Dictated by: Dictated on workstation # [id number] Dict: 05/06/21 1124 Trans: 05/06/21 1139 [facility] [place] [id number] Interpreted by: SELVIN HARRIS DO Electronically signed by: SELVIN HARRIS DO 05/06/21 1139 Reviewed: Reviewed by Me Consults : Consulting Physician: ROHAN MACHADO DO Consults Notes Discussed the case and CT imaging with Dr. Machado who is familiar with the case. He recommends that we control her pain, put an ostomy bag on it and follow-up outpatient with her scheduled routine bowel prep on Saturday and surgery on of this week. 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 Decision time for Depature: 12:18 Referrals: ROHAN MACHADO JOHN D MD (PCP/Family) Primary Care Physician Patient Instructions: Enterocutaneous Fistula (DC) Add. Discharge Instructions: Keep the skin clean and moisturized with lotion. Keep a colostomy bag over it to collect the contents from the fistula. Keep your scheduled bowel prep and surgery next week. Call Dr. Machado's office for any concerns. Return to the ER for significant fevers, intractable pain. Hydrocodone 1 to 2 tablets every 4 hours as necessary for pain. All discharge instructions reviewed with patient and/or family. Voiced understanding. Scripts Hydrocodone/Acetaminophen (Hydrocodone-Acetamin 5-325 mg) 1 Each Tablet 1-2 TAB PO Q4H PRN for PAIN-MODERATE (5-7) for 5 Days, #40 TAB 0 Refills Prov: JANN LAKHANI 05/06/21 Copy Copies To 1: ROHAN MACHADO DO JANN LAKHANI May 06, 2021 10:38
[2021-05-06 10:49] LABS: ALBUMIN 3.3 GM/DL (3.2-4.5); CHLORIDE 93 MMOL/L (98-107); POTASSIUM 4.4 MMOL/L (3.6-5.0); SODIUM 135 MMOL/L (135-145)
[2021-05-06 10:51] LABS: CALCIUM 9.5 MG/DL (8.5-10.1)
[2021-05-06 10:52] LABS: GLUCOSE 291 MG/DL (70-105); TOTAL PROTEIN 7.6 GM/DL (6.4-8.2)
[2021-05-06 10:53] LABS: CARBON DIOXIDE 31 MMOL/L (21-32)
[2021-05-06 10:53] LABS: BILIRUBIN,URINE NEGATIVE (NEGATIVE); CLARITY,URINE CLEAR; COLOR,URINE YELLOW; GLUCOSE, URINE (UA) 3+ (NEGATIVE); KETONES,URINE NEGATIVE (NEGATIVE); LEUKOCYTE ESTERASE ,URINE TRACE (NEGATIVE); NITRITE,URINE NEGATIVE (NEGATIVE); PROTEIN,URINE NEGATIVE (NEGATIVE)
[2021-05-06 10:54] LABS: BILIRUBIN,TOTAL 0.3 MG/DL (0.1-1.0)
[2021-05-06 10:55] LABS: ALKALINE PHOSPHATASE 65 U/L (40-136)
[2021-05-06 10:56] LABS: CREATININE SERUM 0.79 MG/DL (0.60-1.30); GFR ESTIMATED > 60
[2021-05-06 10:57] LABS: BUN/CREATININE RATIO 11
[2021-05-06 10:58] LABS: ALANINE AMINOTRANSFERASE 7 U/L (0-55)
[2021-05-06 11:23] LABS: BACTERIA,URINE TRACE /HPF
--- NOTE | 2021-05-06 11:37 | Diagnostic Imaging Report ---
PROCEDURE: CT abdomen and pelvis without contrast. TECHNIQUE: Multiple contiguous axial images were obtained through the abdomen and pelvis without the use of intravenous contrast. Auto Exposure Controls were utilized during the CT exam to meet ALARA standards for radiation dose reduction. INDICATION: Abdominal pain. Colonic fistula in the suprapubic region. COMPARISON: 02/10/2021. FINDINGS: The heart is enlarged. Chronic scarring is seen in the left lung base. The liver, spleen, pancreas, adrenal glands, and kidneys have a normal noncontrast CT appearance. There is no pathologically enlarged mesenteric or retroperitoneal adenopathy. There is a fistula between the previously visualized thick-walled stool-filled collection in the pelvis left of the urinary bladder and the suprapubic soft tissues left of midline. The fistula tract measures 5.3 cm in length. The bowel loops are nondilated. There is no free fluid or free air. No acute osseous abnormalities. There is calcified aortic and iliac atherosclerotic plaque without aneurysm. There is air within the urinary bladder. There is no free air, loculated collection, or adenopathy in the pelvis. IMPRESSION: 1. Development of a fistula tract connecting the soft tissues of the suprapubic region left of midline and the previously visualized thick walled stool filled collection in the pelvis left of the urinary bladder. Findings may be neoplastic or represent complication's from perforated diverticulitis. 2. Air within the urinary bladder. Recommend correlation with recent instrumentation. Potential communication with the collection adjacent to the left aspect of the urinary bladder is also a possibility. 3. Cardiomegaly. Dictated by: Dictated on workstation # [id number]
[2021-05-06] MEDS ORDERED: morphine INJ 10 MG/ML 1ML (SYR OR VIAL) IVP STA (12:10)
[2021-05-06] MEDS ORDERED: ONDANSETRON 4 MG/2 ML (SDV) Z0FRAN IVP ONE (12:15)
[2021-05-06] MEDS ORDERED: ACHD5005 PO (12:22)
[2021-05-06 14:04] VITALS: BP 152/60
== END 2021-05-06 14:04 | disposition home or self-care (01) ==
LOC: EDUNIT# 10:21 → ER 10:23
DX: N32.1 Vesicointestinal fistula (principal); J44.9 Chronic obstructive pulmonary disease, unspecified; I25.2 Old myocardial infarction; I10 Essential (primary) hypertension; F41.9 Anxiety disorder, unspecified; I25.10 Atherosclerotic heart disease of native coronary artery without angina pectoris; F32.9 Major depressive disorder, single episode, unspecified; E11.9 Type 2 diabetes mellitus without complications; Z87.891 Personal history of nicotine dependence; Z79.899 Other long term (current) drug therapy
CPT/HCPCS: 36415; 74176; 80053; 81000; 85025; 86141; 86850; 86900; 86901

== ENCOUNTER 2021-05-11 05:58 | Inpatient (IN) | payer MEDICARE, MEDICAID ==
[~2021-05-11] VITALS: Ht 152 cm; Wt 49.8 kg
[2021-05-11] VITALS (11 sets, daily range): BP systolic 144–173; BP diastolic 57–74
[2021-05-11] MEDS ORDERED: NEOSTIGMINE 3 MG/3 ML VIAL ONE (07:09)
[2021-05-11] MEDS ORDERED: LIDOCAINE PF 2% 5 ML (XYLOCAINE) VIAL ONE (07:09)
[2021-05-11] MEDS ORDERED: ONDANSETRON 4 MG/2 ML (SDV) Z0FRAN ONE (07:09)
[2021-05-11] MEDS ORDERED: fentaNYL INJ 100 MCG/2 ML AMP ONE ×2 (07:09→09:22)
[2021-05-11] MEDS ORDERED: GLYCOPYRROLATE 0.2 MG/ML (ROBINUL) 2 ML VIAL ONE (07:09)
[2021-05-11] MEDS ORDERED: proPOfol 200 MG/20 ML (DIPRIVAN) VIAL IV ONE (07:09)
[2021-05-11] MEDS ORDERED: MIDAZOLAM 2 MG/2 ML (VERSED) VIAL ONE (07:10)
[2021-05-11] MEDS ORDERED: ROCURONIUM 10 MG/ML 5 ML SYRINGE IV ONE (07:10)
[2021-05-11] MEDS ORDERED: ceFAZolin INJECTION 1,000 MG in WATER (STERILE) FOR INJECTION 10 ML IV ONE (07:15)
[2021-05-11] MEDS ORDERED: metroNIDAZOLE 500MG/100ML IVPB 100 ML IV ONE (07:15)
[2021-05-11] MEDS ORDERED: LIDOCAINE/EPI 1%-1:100,000 (XYLOCAINE) 20ML ONE (07:24)
[2021-05-11] MEDS: LACTATED RINGERS 1,000 ML IV PRN ×2 (07:43→09:45)
[2021-05-11] MEDS ORDERED: fentaNYL INJ 100 MCG/2 ML AMP IV ONE (07:45)
[2021-05-11] MEDS ORDERED: PHENYLEPHRINE 100 MCG/ML 10 ML (ANESTHESIA) SYR ONE (08:03)
[2021-05-11] MEDS ORDERED: SEVOFLURANE (ULTANE) 15 ML INHAL SOLN ONE ×3 (08:11→08:56)
--- NOTE | 2021-05-11 08:37 | Progress Note-Post Operative ---
Post-Operative Progess Note Surgeon (s)/Wood Carver (s) Surgeon PADMINI SAINZ MD Wood Carver: NONE Pre-Operative Diagnosis VESICOCOLONIC FISTULA Post-Operative Diagnosis SAME Procedure & Operative Findings Date of Procedure 05/11/21 Procedure Performed/Findings CYSTO AND INSERTION OF BILATERAL URETERAL STENTS Anesthesia Type GENERAL Estimated Blood Loss Estimated blood loss (mL): NONE Specimens/Packing Specimens Removed NONE Packing: NONE PADMINI SAINZ MD May 11, 2021 08:37
[2021-05-11 08:43] LABS: BUN/CREATININE RATIO 13; CALCIUM 9.7 MG/DL (8.5-10.1); CARBON DIOXIDE 30 MMOL/L (21-32); CHLORIDE 91 MMOL/L (98-107); CREATININE SERUM 0.69 MG/DL (0.60-1.30); GFR ESTIMATED > 60; GLUCOSE 192 MG/DL (70-105); POTASSIUM 3.7 MMOL/L (3.6-5.0); SODIUM 132 MMOL/L (135-145)
--- NOTE | 2021-05-11 09:34 | Diagnostic Imaging Report ---
INDICATION: Fluoroscopy during ureteral stent placement. IMPRESSION: Fluoroscopy was provided in the OR during ureteral stent placement. 61 seconds of fluoroscopic time was utilized. No images were obtained. Dictated by: Dictated on workstation # [id number]
[2021-05-11] MEDS ORDERED: ONDANSETRON 4 MG/2 ML (SDV) Z0FRAN IVP PRN (09:45)
[2021-05-11] MEDS ORDERED: HYDROmorphone 2 MG/ML VIAL (DILAUDID) IV ONE (09:45)
[2021-05-11] MEDS ORDERED: morphine INJ 10 MG/ML 1ML (SYR OR VIAL) IVP ONE (09:45)
--- NOTE | 2021-05-11 13:43 | Progress Note-Post Operative ---
Post-Operative Progess Note Surgeon (s)/Boiler Operator Helper (s) Surgeon ROHAN MACHADO DO Boiler Operator Helper: Dr. Reyes Pre-Operative Diagnosis VESICOCOLONIC FISTULA Post-Operative Diagnosis same Procedure & Operative Findings Date of Procedure 05/11/21 Procedure Performed/Findings diagnostic laparoscopy with diverting transverse loop colostomy Anesthesia Type gen Estimated Blood Loss Estimated blood loss (mL): minimal Specimens/Packing Specimens Removed none Packing: NONE ROHAN MACHADO DO May 11, 2021 13:43
[2021-05-11] MEDS: fentaNYL INJ 100 MCG/2 ML AMP IVP PRN ×4 (13:59→21:20)
--- NOTE | 2021-05-11 14:02 | Consultation - Hospitalist ---
HPI History of Present Illness: HPI/Chief Complaint Pt is a 81yoCF with a PMH of CAD, HTN, HLD, Hypothyroidism who was admitted for vesicocolinic fistula fistula repair. She has had recurrent UTI and so underwent diagnostic lap with subsequent diverting colostomy. She is quite drowsy and I had to wake her from sleep when I entered her room. No family at bedside. She complains of abdominal pain but otherwise has no complaints. I am consulted for medical management. Source: patient Date Seen 05/11/21 Attending Physician Dedrick Mas DO PCP Josh Navarro MD Referring Physician Date of Admission May 11, 2021 at 05:58 Home Medications & Allergies Home Medications Reviewed patient Home Medication Reconciliation performed by pharmacy medication reconciliations supervisor sound technician and/or nursing. Patients Allergies have been reviewed. Allergies Allergies Coded Allergies Fish Containing Products (Unverified Allergy, Unknown, 03/07/21) iodine (Unverified Allergy, Unknown, 03/07/21) peanut (Unverified Allergy, Unknown, 03/07/21) shrimp (Verified Allergy, Unknown, 04/30/19) Uncoded Allergies POPCORN ( Allergy, Unknown, 03/07/21) Past Agjpbej-Ycmwjf-Shlowk Hx Patient Social History Smoking Status: Former Smoker Substance use?: No Alcohol Use?: No Pt feels they are or have been: No Immunizations Up To Date Date of Influenza Vaccine: Aug 30, 2020 First/Initial COVID19 Vaccinat: NOV 2020 Second COVID19 Vaccination Eric: DEC 2020 Date of Pneumonia Vaccine: Aug 28, 2019 Seasonal Allergies Seasonal Allergies: No Current Status status: No status: No Advance Directives: Yes Advance Directive Location: [facility] Communicates: Verbally Primary Language: Icelandic Preferred Spoken Language: Icelandic Is interpretation needed?: No Past Medical History Surgeries: CABG, Hysterectomy COPD Currently Using CPAP: No Currently Using BIPAP: No Coronary Artery Disease, Heart Attack, 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 Sexually Transmitted Disease: No HIV/AIDS: No Renal Failure Diverticulosis Arthritis Diabetes, Insulin dep Loss of Vision: Denies Sleep Difficulties, Anxiety, Depression Blood Disorders: No Adverse Reaction/Blood Tranf: No (N/A) Family Medical History Reviewed Nursing Family Hx Alzheimer's disease Cardiovascular disease 19 FATHER 19 MOTHER Diabetes mellitus 19 MOTHER No Pertinent Family Hx Review of Systems Constitutional: No chills, No fever EENTM: no symptoms reported Respiratory: no symptoms reported Cardiovascular: no symptoms reported Gastrointestinal: abdominal pain Genitourinary: no symptoms reported Musculoskeletal: no symptoms reported Skin: no symptoms reported Psychiatric/Neurological: No Symptoms Reported Physical Exam Physical Exam Vital Signs Vital Signs - First Documented 05/11/21 06:30 Temp 36.3 Pulse 92 Resp 18 B/P (MAP) 144/64 (90) Pulse Ox 100 O2 Delivery Nasal Cannula O2 Flow Rate 2.00 Capillary Refill : Height, Weight, BMI Height: 0'60.00" Weight: 150lbs. 3.2oz. 68.548297xa; 21.55 BMI Method:Stated General Appearance: No Apparent Distress, WD/WN HEENT: PERRL/EOMI, Moist Mucous Membranes; No Scleral Icterus (L), No Scleral Icterus (R); Other (edentulous ) Neck: Normal Inspection, Supple Respiratory: Lungs Clear, No Accessory Muscle Use, No Respiratory Distress Cardiovascular: Regular Rate, Rhythm, No Murmur Gastrointestinal: Normal Bowel Sounds, Soft Extremity: No Calf Tenderness, No Pedal Edema Neurologic/Psychiatric: Alert, Oriented x3, Normal Mood/Affect Results Results/Procedures Labs Laboratory Tests 05/11/21 06:30 Patient resulted labs reviewed. Assessment/Plan Assessment and Plan Assess & Plan/Chief Complaint Vesicocolinic fistula Management per primary Pain regimen ostomy noted HTN HLD NIDDMII Continue home meds when med rec done DVT ppx: Lovenox when ok with surgery Diagnosis/Problems Diagnosis/Problems (1) Essential (primary) hypertension (2) HLD (hyperlipidemia) (3) Debility (4) Non-insulin dependent type 2 diabetes mellitus (5) Hypothyroidism (6) Vesicointestinal fistula ALICIA MORGAN MD May 11, 2021 14:02
--- NOTE | 2021-05-11 14:32 | OPERATIVE REPORT ---
DATE OF SERVICE: 05/11/2021 PREOPERATIVE DIAGNOSIS: Vesicocolonic fistula. POSTOPERATIVE DIAGNOSIS: Vesicocolonic fistula. OPERATION PERFORMED: Cystoscopy and insertion of bilateral ureteral stents. SURGEON: Casey Sainz MD ANESTHESIA: General. COMPLICATIONS: None. DESCRIPTION OF PROCEDURE: Under satisfactory general anesthesia, the patient in lithotomy position, genitalia were prepped and draped in the usual sterile fashion. Cystoscopy was performed with both lenses and the only abnormality was quite a bit of edema and of the mucosa, especially definitely on the left side, starting at the floor and up the lateral wall and the anterior wall. The right side was okay. Using the foroblique lens, I visualized first the left ureteral orifice, inserted a 6-[place] ureteral catheter, passed it all the way to the renal pelvis, guided fluoroscopically and urine coming out from the catheter. In a similar fashion, I inserted in the right side and again same findings. I removed the cystoscope, inserted the Wick catheter draining the bladder and with a special connector connected the two ureteral catheter and the wick. The patient tolerated the procedure and anesthesia well and Dr. Mas proceeded with his surgery that he will dictate. Job ID: [id number] DocumentID: [id number] Dictated Date: 05/11/2021 08:39:28 Honing Machine Operator Tool Date: 05/11/2021 14:32:18 Dictated By: CASEY SAINZ MD [facility]
[2021-05-11 15:05] LABS: BASOPHILS # (AUTO) 0.1 10^3/uL (0.0-0.1); BASOPHILS % (AUTO) 0 % (0-10); EOSINOPHILS # (AUTO) 0.1 10^3/uL (0.0-0.3); EOSINOPHILS % (AUTO) 0 % (0-10); HEMATOCRIT 39 % (35-52); HEMOGLOBIN 11.8 g/dL (11.5-16.0); LYMPHOCYTES # (AUTO) 4.8 10^3/uL (1.0-4.0); LYMPHOCYTES % (AUTO) 25 % (12-44); MEAN CORPUSCULAR HEMOGLOBIN 28 pg (25-34); MEAN CORPUSCULAR HGB CONC 31 g/dL (32-36); MEAN CORPUSCULAR VOLUME 92 fL (80-99); MEAN PLATELET VOLUME 9.5 fL (9.0-12.2); MONOCYTES # (AUTO) 1.2 10^3/uL (0.0-1.0); MONOCYTES % (AUTO) 6 % (0-12); NEUTROPHILS % (AUTO) 68 % (42-75); PLATELET COUNT 287 10^3/uL (130-400); WHITE BLOOD COUNT 19.2 10^3/uL (4.3-11.0)
[2021-05-11 15:24] LABS: BAND NEUTROPHILS 0 %; BASOPHILS % (MANUAL) 0 %; EOSINOPHILS % (MANUAL) 0 %; LYMPHOCYTES % (MANUAL) 28 %; MONOCYTES % (MANUAL) 8 %; NEUTROPHILS % (MANUAL) 64 %
[2021-05-11 15:25] LABS: ANISOCYTOSIS SLIGHT
[2021-05-11] MEDS ORDERED: RT-ALBUTEROL SULF 2.5 MG/3 ML PRE-MIX VIAL INH PRN (16:00)
[2021-05-11] MEDS: LACTATED RINGERS 1,000 ML IV SCH ×2 (16:56→23:45)
[2021-05-11] MEDS ORDERED: cefTRIAXone 1,000 MG in WATER (STERILE) FOR INJECTION 10 ML IV NR (19:00)
[2021-05-11] MEDS: metroNIDAZOLE 500MG/100ML IVPB 100 ML IV SCH (21:18)
[2021-05-11] MEDS: HYDROcodone/APAP 5 MG/325 MG (LORTAB) TAB PO PRN (21:20)
[2021-05-12] VITALS (8 sets, daily range): BP systolic 150–189; BP diastolic 63–85
--- NOTE | 2021-05-12 02:50 | OPERATIVE REPORT ---
DATE OF SERVICE: 05/11/2021 PREOPERATIVE DIAGNOSES: Colovesicular fistula and colocutaneous fistula. POSTOPERATIVE DIAGNOSES: Colovesicular fistula and colocutaneous fistula. PROCEDURE: Diagnostic laparoscopy, transverse loop colostomy. SURGEON: Rohan Mas DO MANUFACTURING TEAM MEMBER: Dr. Reyes, who assisted in retraction, dissection and closure needed due to the patient's high risk comorbidities to expedite surgery. INDICATIONS: The patient is a 81-year-old female with multiple comorbidities and high risk. 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 She and her family were discussed conservative and operative management and would explain her high risk in doing surgery. They understood and despite being high risk, the patient and family wishes to proceed with surgical intervention. We discussed that options would be a resection with reanastomosis or doing a diverting colostomy, which was more likely the case. She and family understood risks and benefits and consent was signed in the chart. The patient was taken to the operating suite. Dr. Whaley placed ureteral catheters in case needed for identification of ureters. DESCRIPTION OF PROCEDURE: The patient was then prepped and draped in sterile fashion. A timeout was performed, and local anesthetic was infiltrated in the left upper quadrant. A 15 blade scalpel was used to make a small skin incision and cautery was used to dissect down to the fascia, which was then divided and the abdomen was entered. Balloon trocar was inserted and pneumoperitoneum was achieved. A scope was then inserted into the abdomen noting sigmoid colon being adherent to the abdominal wall. It was dilated in appearance and had significant adherence to the bladder it appears. At this time, we decided for the patient likely the safest to proceed with a diverting transverse loop colostomy. An incision was made in the epigastric area. Dissection was taken down through the subcutaneous tissue. The fascia was divided, and the transverse colon was then grasped and elevated. This was then dissected around, and a colostomy bridge was then utilized and secured to the abdominal wall. The colostomy was then matured using 3-0 Vicryl. We changed gloves and the fascia was then closed at the 12 mm trocar site using 0 Vicryl in a zumwao-pv-qpnho fashion. Skin was then closed with chava. The colostomy appliance was applied. The area was then washed, and dried and sterile bandages were applied. The patient tolerated procedure well without any complications. She was taken to recovery room in stable condition. Job ID: [id number] DocumentID: [id number] Dictated Date: 05/11/2021 22:00:41 It Sales Representative Date: 05/12/2021 02:49:37 Dictated By: ROHAN MAS DO
[2021-05-12] MEDS: metroNIDAZOLE 500MG/100ML IVPB 100 ML IV SCH (02:59)
[2021-05-12] MEDS: LACTATED RINGERS 1,000 ML IV SCH ×2 (04:11→14:43)
[2021-05-12] MEDS: HYDROcodone/APAP 5 MG/325 MG (LORTAB) TAB PO PRN ×4 (04:11→20:28)
[2021-05-12] MEDS: fentaNYL INJ 100 MCG/2 ML AMP IVP PRN ×7 (05:55→23:16)
[2021-05-12 05:59] LABS: BASOPHILS # (AUTO) 0.1 10^3/uL (0.0-0.1); BASOPHILS % (AUTO) 0 % (0-10); EOSINOPHILS # (AUTO) 0.1 10^3/uL (0.0-0.3); EOSINOPHILS % (AUTO) 1 % (0-10); HEMATOCRIT 28 % (35-52); HEMOGLOBIN 8.6 g/dL (11.5-16.0); LYMPHOCYTES # (AUTO) 5.1 10^3/uL (1.0-4.0); LYMPHOCYTES % (AUTO) 32 % (12-44); MEAN CORPUSCULAR HEMOGLOBIN 28 pg (25-34); MEAN CORPUSCULAR HGB CONC 30 g/dL (32-36); MEAN CORPUSCULAR VOLUME 92 fL (80-99); MEAN PLATELET VOLUME 8.3 fL (9.0-12.2); MONOCYTES % (AUTO) 7 % (0-12); NEUTROPHILS # (AUTO) 9.5 10^3/uL (1.8-7.8); NEUTROPHILS % (AUTO) 60 % (42-75); PLATELET COUNT 479 10^3/uL (130-400); WHITE BLOOD COUNT 15.8 10^3/uL (4.3-11.0)
[2021-05-12 06:18] LABS: CHLORIDE 98 MMOL/L (98-107); POTASSIUM 4.3 MMOL/L (3.6-5.0); SODIUM 135 MMOL/L (135-145)
[2021-05-12 06:19] LABS: CALCIUM 8.6 MG/DL (8.5-10.1); GLUCOSE 140 MG/DL (70-105)
[2021-05-12 06:21] LABS: CARBON DIOXIDE 28 MMOL/L (21-32)
[2021-05-12 06:23] LABS: CREATININE SERUM 0.55 MG/DL (0.60-1.30); GFR ESTIMATED > 60
[2021-05-12 06:24] LABS: BUN/CREATININE RATIO 11
--- NOTE | 2021-05-12 13:45 | Physical Therapy Evaluation ---
PT Evaluation-General Medical Diagnosis Admission Date May 11, 2021 at 05:58 Medical Diagnosis: vesicotintestinal fistula Onset Date: May 11, 2021 Therapy Diagnosis Therapy Diagnosis: debility/weakness Height/Weight Height (Feet): 0 Height (Inches): 60.00 Weight (Pounds): 150 Weight (Ounces): 3.2 Precautions Precautions/Isolations: Fall Prevention, Standard Precautions Referral Physician: Chace Reason for Referral: Evaluation/Treatment Medical History Pertinent Medical History: CABG, CAD, DM, HTN, [place], Renal Insufficiency Current History From OR secondary to abdominal pain/stoma pain Reviewed History: Yes Social History [facility] Prior Level of Function SCALE: Activities may be completed with or without assistive devices. 3-Wqjccpwlqy-amaimyk completes the activity by him/herself with no assistance from a helper. 5-Set-up or Clean-up Assistance-helper sets up or cleans up; patient completes activity. [place] assists only prior to or following the activity. 4-Supervision or Touching Assistance-helper provides verbal cues and/or touc liana/steadying and/or contact guard assistance as patient completes activity. Assistance may be provided throughout the activity or intermittently. 3-Partial/Moderate Assistance-helper does LESS THAN HALF the effort. [place] lifts, holds or supports trunk or limbs, but provides less than half the effort. 2-Substantial/Maximal Assistance-helper does MORE THAN HALF the effort. [place] lifts or holds trunk or limbs and provides more than half the effort. 0-Guvwpgnyv-bfacme does ALL the effort. Patient does none of the effort to complete the activity. Or, the assistance of 2 or more helpers is required for the patient to complete the activity. If activity was not attempted, code reason: 7-Patient Refused. 9-Not Applicable-not attempted and the patient did not perform the activity before the current illness, exacerbation or injury. 10-Not Attempted due to Environmental Limitations-(lack of equipment, weather restraints, etc.). 88-Not Attempted due to Medical Conditions or Safety Concerns. Bed Mobility: 4 Transfers (B,C,W/C): 4 Gait: 4 Indoor Mobility (Ambulation): Needed Some Help Stairs: Not Applicalbe Prior Devices Use: Manual wheelchair, Walker PT Evaluation-Current Subjective Patient agrees to PT. Continues to c/o 8/10 abdominal pain. Patient is very tearful due to not feeling well. Objective Patient Orientation: Normal For Age Attachments: Oxygen, Guo Catheter, IV ROM/Strength ROM Lower Extremities bilateral LE WFL Strength Lower Extremities 3/5 grossly bilateral LE Integumentary/Posture Integumentary refer to nursing notes Bladder Incontinence: Guo Cath Posture WFL Neuromuscular (Tone, Coordination, Reflexes) grossly intact Sensory Vision: Functional Hearing: Impaired Transfers Lying to Sitting/Side of Bed(Q: 3 Sit to Stand (QC): 3 Chair/Sgw-jb-Wlhxz Xfer(QC): 3 Gait Does the Patient Walk?: Yes Mode of Locomotion: Both Anticipated Mode of Locomotion: Both Walk 10 feet (QC): 3 Walk 50 ft with 2 Turns(QC): 88 Walk 150 ft (QC): 88 Distance: 10' Gait Assistive Device: FWW Comments/Gait Description shuffle gait sequence due to abdominal pain with slight trunk flexed posture Balance Sitting Static: Fair Sitting Dynamic: Fair Standing Static: Fair Standing Dynamic: Fair Assessment/Needs 81 y.o. female, will benefit from skilled PT to address functional strength and mobility to improve current LOF. Patient c/o abdominal pain with no relief. Rehab Potential: Guarded PT Custodial Goals Custodial Goals PT Custodial Goals Time Frame: May 20, 2021 Roll Left & Right (QC): 4 Sit to Lying (QC): 4 Lying-Sitting on Side/Bed(QC): 4 Sit to Stand (QC): 4 Chair/Whp-ab-Dtkid Xfer(QC): 4 Toilet Transfer (QC): 4 Walk 10 feet (QC): 4 Walk 50ft with 2 Turns (QC): 4 Walk 150 ft (QC): 4 PT Plan Problem List Problem List: Activity Tolerance, Functional Strength, Balance, Gait, Transfer, Bed Mobility Treatment/Plan Treatment Plan: Continue Plan of Care Treatment Plan: Bed Mobility, Education, Functional Activity Jennifer, Functional Strength, Gait, Safety, Therapeutic Exercise, Transfers Treatment Duration: May 20, 2021 Frequency: 6 times per week Estimated Hrs Per Day: .25 hour per day Patient and/or Family Agrees t: Yes Time/GCodes Time In: 1301 Time Out: 1314 Total Billed Treatment Time: 13 Total Billed Treatment 1 visit EVMod 13 min HAMMAD BROWN PT May 12, 2021 13:45
--- NOTE | 2021-05-12 16:26 | Anesthesia-General Post-Op ---
General Patient Condition Mental Status/LOC: Same as Preop Cardiovascular: Satisfactory Nausea/Vomiting: Absent Respiratory: Satisfactory Pain: Controlled Complications: Absent Post Op Complications Complications None Follow Up Care/Instructions Patient Instructions None needed. Anesthesia/Patient Condition Patient Condition Patient is doing well, C/O some abdominal pain which is to be expected, stable vital signs, no apparent adverse anesthesia problems. ASHOK LEACH 18, 2021 16:26
--- NOTE | 2021-05-12 16:47 | Progress Note - Surgery ---
Subjective Date Seen by a Provider: May 12, 2021 Time Seen by a Provider: 16:47 Subjective/Events-last exam Patient pain not controlled. Tolerating diet. Has output from colostomy. No other complaints at this time. Denies n/v fever sweats chills shortness of breath or chest pain Objective Exam Vital Signs Date Time Temp Pulse Resp B/P (MAP) Pulse Ox O2 Delivery O2 Flow Rate FiO2 05/12/21 16:17 Nasal Cannula 1.00 05/12/21 15:52 36.4 91 16 189/81 (117) 98 Nasal Cannula 1.00 05/12/21 13:00 81 05/12/21 11:28 36.6 73 18 172/73 (106) 50 05/12/21 08:00 94 Nasal Cannula 1.00 05/12/21 07:55 36.5 88 18 150/67 (94) 94 Nasal Cannula 0.50 05/12/21 07:00 90 05/12/21 06:03 86 05/12/21 04:07 36.1 85 18 176/71 (106) 97 Nasal Cannula 0.50 05/12/21 01:20 36.5 83 20 168/63 (98) 100 Nasal Cannula 1.00 05/11/21 19:30 Nasal Cannula 1.00 05/11/21 19:05 37.3 95 20 164/64 (97) 98 Nasal Cannula 1.00 05/11/21 18:57 95 Nasal Cannula 1.00 I & O 05/12/21 07:00 Intake Total 3510 ml Output Total 1284 ml Balance 2226 ml Capillary Refill : General Appearance: No Apparent Distress, WD/WN HEENT: PERRL/EOMI, Moist Mucous Membranes; No Scleral Icterus (L), No Scleral Icterus (R); Other (edentulous ) Neck: Normal Inspection, Supple Respiratory: Chest Non Tender, No Accessory Muscle Use, No Respiratory Distress Cardiovascular: Regular Rate, Rhythm, No JVD Gastrointestinal: soft, tenderness (incisional, transferse loop dilated and edematous, has output) Extremity: No Calf Tenderness, No Pedal Edema Neurologic/Psychiatric: Alert, Oriented x3, Normal Mood/Affect Skin: Normal Color, Warm/Dry Lymphatic: No Adenopathy Results Lab Laboratory Tests 05/12/21 05:45: White Blood Count 15.8H, Red Blood Count 3.09L, Hemoglobin 8.6#L, Hematocrit 28L , Mean Corpuscular Volume 92, Mean Corpuscular Hemoglobin 28, Mean Corpuscular Hemoglobin Concent 30L, Red Cell Distribution Width 14.1, Platelet Count 479H, Mean Platelet Volume 8.3L, Immature Granulocyte % (Auto) 1, Neutrophils (%) (Auto) 60, Lymphocytes (%) (Auto) 32, Monocytes (%) (Auto) 7, Eosinophils (%) (Auto) 1, Basophils (%) (Auto) 0, Neutrophils # (Auto) 9.5H, Lymphocytes # (Auto) 5.1H, Monocytes # (Auto) 1.0, Eosinophils # (Auto) 0.1, Basophils # (Auto) 0.1, Immature Granulocyte # (Auto) 0.1, Sodium Level 135, Potassium Level 4.3, Chloride Level 98, Carbon Dioxide Level 28, Anion Gap 9, Blood Urea Nitrogen 6L, Creatinine 0.55L, Estimat Glomerular Filtration Rate > 60, BUN/Creatinine Ratio 11, Glucose Level 140H, Calcium Level 8.6 Microbiology 05/11/21 MRSA Screen - Final, Complete MRSA not isolated Assessment/Plan Assessment/Plan Assessment/Plan coloviscular fistula colocutaneous fistula s/p transverse loop colostomy plan to control pain, Vicodin 1-2 every 6 hours. advance diet increase activity ROHAN MACHADO DO May 12, 2021 16:47
[2021-05-12] MEDS: MICONAZOLE 2% POWDER (DESENEX AF) 90 GM TOP SCH (20:28)
[2021-05-13] MEDS: LACTATED RINGERS 1,000 ML IV SCH ×2 (01:03→11:18)
[2021-05-13 03:27] VITALS: BP 178/74
[2021-05-13] MEDS: fentaNYL INJ 100 MCG/2 ML AMP IVP PRN ×3 (03:32→20:00)
[2021-05-13] MEDS: HYDROcodone/APAP 5 MG/325 MG (LORTAB) TAB PO PRN ×2 (05:59→23:47)
[2021-05-13 06:09] LABS: HEMATOCRIT 30 % (35-52); MEAN CORPUSCULAR HEMOGLOBIN 28 pg (25-34); MEAN CORPUSCULAR HGB CONC 30 g/dL (32-36); MEAN CORPUSCULAR VOLUME 92 fL (80-99); MEAN PLATELET VOLUME 8.5 fL (9.0-12.2); PLATELET COUNT 544 10^3/uL (130-400); WHITE BLOOD COUNT 14.6 10^3/uL (4.3-11.0)
[2021-05-13 06:28] LABS: CHLORIDE 98 MMOL/L (98-107); POTASSIUM 3.9 MMOL/L (3.6-5.0); SODIUM 135 MMOL/L (135-145)
[2021-05-13 06:29] LABS: CALCIUM 8.6 MG/DL (8.5-10.1); GLUCOSE 147 MG/DL (70-105)
[2021-05-13 06:31] LABS: CARBON DIOXIDE 27 MMOL/L (21-32)
[2021-05-13 06:33] LABS: CREATININE SERUM 0.53 MG/DL (0.60-1.30); GFR ESTIMATED > 60
[2021-05-13 06:34] LABS: BUN/CREATININE RATIO 8
[2021-05-13 07:59] VITALS: BP 181/82
[2021-05-13] MEDS: MICONAZOLE 2% POWDER (DESENEX AF) 90 GM TOP SCH ×2 (09:29→21:04)
[2021-05-13] MEDS ORDERED: LEVOTHYROXINE 25 MCG (LEVOTHROID) TAB PO ONE (11:15)
--- NOTE | 2021-05-13 11:33 | Progress Note ---
Subjective Date Seen by a Provider: May 13, 2021 Time Seen by a Provider: 10:40 Subjective/Events-last exam Patient seen with Dr. Phan. Patient reports doing better. Tolerating diet. Minimal discomfort. Did report an episode of vomiting but reported it was clear liquid and small amount. No nausea. Tolerated breakfast this morning. Loop colostomy functioning. Objective Exam Vital Signs Date Time Temp Pulse Resp B/P (MAP) Pulse Ox O2 Delivery O2 Flow Rate FiO2 05/13/21 08:00 98 Nasal Cannula 1.00 05/13/21 07:59 36.6 90 20 181/82 (115) 98 Nasal Cannula 1.00 05/13/21 07:00 91 05/13/21 03:27 36.2 86 20 178/74 (108) 95 Nasal Cannula 1.00 05/13/21 01:00 81 05/12/21 23:17 36.7 86 20 183/73 (109) 99 Nasal Cannula 1.00 05/12/21 20:52 182/70 (107) 05/12/21 20:30 Nasal Cannula 1.00 05/12/21 20:00 36.6 92 20 184/85 (118) 97 Nasal Cannula 1.00 05/12/21 19:00 97 05/12/21 16:17 Nasal Cannula 1.00 05/12/21 15:52 36.4 91 16 189/81 (117) 98 Nasal Cannula 1.00 05/12/21 13:00 81 05/12/21 11:28 36.6 73 18 172/73 (106) 50 I & O 05/13/21 07:00 Intake Total 2800 ml Output Total 1175 ml Balance 1625 ml Capillary Refill : General Appearance: No Apparent Distress, WD/WN Neck: Normal Inspection, Supple Respiratory: No Accessory Muscle Use, No Respiratory Distress Cardiovascular: Regular Rate, Rhythm, No Edema Gastrointestinal: normal bowel sounds, soft, tenderness (Lower abdomen), other (Mid upper abdominal loop colostomy, pink, moist, functioning with brown liquid stool. Mid lower abdominal fistula note with ostomy bag over fistula with liquid yellow/addison drainage) Neurologic/Psychiatric: Alert, Oriented x3 Skin: Normal Color, Warm/Dry Results Lab Laboratory Tests 05/13/21 05:40: White Blood Count 14.6H, Red Blood Count 3.21L, Hemoglobin 9.0L, Hematocrit 30L, Mean Corpuscular Volume 92, Mean Corpuscular Hemoglobin 28, Mean Corpuscular Hemoglobin Concent 30L, Red Cell Distribution Width 14.0, Platelet Count 544H, Mean Platelet Volume 8.5L, Sodium Level 135, Potassium Level 3.9, Chloride Level 98, Carbon Dioxide Level 27, Anion Gap 10, Blood Urea Nitrogen 4L, Creatinine 0.53L, Estimat Glomerular Filtration Rate > 60, BUN/Creatinine Ratio 8, Glucose Level 147H, Calcium Level 8.6 Microbiology 05/11/21 MRSA Screen - Final, Complete MRSA not isolated Assessment/Plan Assessment/Plan Assess & Plan/Chief Complaint A 81 year old female with Colovesicular fistula and colocutaneous fistula who is s/p diagnostic laparoscopy with placement of loop transverse colostomy VSS WBC 14.6 down from 15.8 Tolerating diet Encourage ambulation and IS Continue medical management PT Repeat labs in AM VEE GOLDMAN APRN May 13, 2021 11:33
[2021-05-13 12:00] VITALS: BP 160/80
[2021-05-13] MEDS: LACTOBACILLUS Acidoph/Bulgar 1 GM (LACTINEX) PACKET PO SCH ×2 (15:25→21:02)
[2021-05-13 16:00] VITALS: BP 206/79
--- NOTE | 2021-05-13 16:12 | Physical Therapy Daily Note ---
PT Daily Note-Current Subjective Patient lying supine in bed upon PT arrival, refuses out of bed treatment. Reports her BP was 243/108 earlier this morning which was confirmed by nurse. Patient agreeable to LE therapeutic exercise. Mental Status Patient Orientation: Person Transfers SCALE: Activities may be completed with or without assistive devices. 1-Uwmcdphwhe-dekzlxu completes the activity by him/herself with no assistance from a helper. 5-Set-up or Clean-up Assistance-helper sets up or cleans up; patient completes activity. [place] assists only prior to or following the activity. 4-Supervision or Touching Assistance-helper provides verbal cues and/or touching/steadying and/or contact guard assistance as patient completes activity. Assistance may be provided throughout the activity or intermittently. 3-Partial/Moderate Assistance-helper does LESS THAN HALF the effort. [place] lifts, holds or supports trunk or limbs, but provides less than half the effort. 2-Substantial/Maximal Assistance-helper does MORE THAN HALF the effort. [place] lifts or holds trunk or limbs and provides more than half the effort. 6-Wmiyvawmp-chudza does ALL the effort. Patient does none of the effort to complete the activity. Or, the assistance of 2 or more helpers is required for the patient to complete the activity. If activity was not attempted, code reason: 7-Patient Refused. 9-Not Applicable-not attempted and the patient did not perform the activity before the current illness, exacerbation or injury. 10-Not Attempted due to Environmental Limitations-(lack of equipment, weather restraints, etc.). 88-Not Attempted due to Medical Conditions or Safety Concerns. Transfers and gait not assessed secondary to hypertension. Exercises Supine Ex: LE Protocol Supine Reps: 20 Assessment Current Status: Fair Progress PT Steamtable Attendant Railroad Goals [facility] Goals PT Steamtable Attendant [employer] Goals Time Frame: May 20, 2021 Roll Left & Right (QC): 4 Sit to Lying (QC): 4 Lying-Sitting on Side/Bed(QC): 4 Sit to Stand (QC): 4 Chair/Wxu-vm-Bazvg Xfer(QC): 4 Toilet Transfer (QC): 4 Walk 10 feet (QC): 4 Walk 50ft with 2 Turns (QC): 4 Walk 150 ft (QC): 4 PT Plan Problem List Problem List: Activity Tolerance, Functional Strength, Safety, Balance, Gait, Transfer, Bed Mobility Treatment/Plan Treatment Plan: Continue Plan of Care Treatment Plan: Bed Mobility, Education, Functional Activity Jennifer, Functional Strength, Gait, Safety, Therapeutic Exercise, Transfers Treatment Duration: May 20, 2021 Frequency: 6 times per week Estimated Hrs Per Day: .25 hour per day Patient and/or Family Agrees t: Yes Time/GCodes Time In: 1330 Time Out: 1340 Total Billed Treatment Time: 10 Total Billed Treatment Visit, Ex. MACEY DAVEY PT May 13, 2021 16:12
[2021-05-13] MEDS ORDERED: hydrALAZINE (APESOLINE) 20 MG/ML VIAL IV PRN (16:15)
[2021-05-13] MEDS ORDERED: NITROGLYCERIN 2% OINT 1 GM UNIT DOSE PACKET TOP PRN (16:15)
[2021-05-13 20:52] VITALS: BP 180/68
[2021-05-13] MEDS: SERTRALINE 50 MG (ZOLOFT) TABLET PO SCH (21:00)
[2021-05-13] MEDS: GABAPENTIN 100 MG (NEURONTIN) CAP PO SCH (21:00)
[2021-05-13] MEDS: OXYBUTYNIN (DITROPAN) 5 MG TAB PO SCH (21:00)
[2021-05-13] MEDS: traZODone 100 MG (DESYREL) TAB PO SCH (21:00)
[2021-05-13 23:27] VITALS: BP 158/70
[2021-05-14 03:35] VITALS: BP 156/70
[2021-05-14 05:47] LABS: HEMATOCRIT 30 % (35-52); HEMOGLOBIN 9.2 g/dL (11.5-16.0); MEAN CORPUSCULAR HEMOGLOBIN 28 pg (25-34); MEAN CORPUSCULAR HGB CONC 31 g/dL (32-36); MEAN CORPUSCULAR VOLUME 91 fL (80-99); MEAN PLATELET VOLUME 8.5 fL (9.0-12.2); PLATELET COUNT 560 10^3/uL (130-400); WHITE BLOOD COUNT 14.9 10^3/uL (4.3-11.0)
[2021-05-14 05:55] LABS: CHLORIDE 101 MMOL/L (98-107); POTASSIUM 4.1 MMOL/L (3.6-5.0); SODIUM 136 MMOL/L (135-145)
[2021-05-14 05:56] LABS: CALCIUM 8.6 MG/DL (8.5-10.1)
[2021-05-14 05:57] LABS: GLUCOSE 132 MG/DL (70-105)
[2021-05-14 05:58] LABS: CARBON DIOXIDE 26 MMOL/L (21-32)
[2021-05-14 06:01] LABS: CREATININE SERUM 0.57 MG/DL (0.60-1.30); GFR ESTIMATED > 60
[2021-05-14 06:02] LABS: BUN/CREATININE RATIO 9
[2021-05-14] MEDS: LEVOTHYROXINE 25 MCG (LEVOTHROID) TAB PO SCH (06:03)
[2021-05-14] MEDS: HYDROcodone/APAP 5 MG/325 MG (LORTAB) TAB PO PRN ×2 (06:03→13:10)
[2021-05-14] MEDS: LACTOBACILLUS Acidoph/Bulgar 1 GM (LACTINEX) PACKET PO SCH ×4 (06:03→21:22)
[2021-05-14 08:00] VITALS: BP 144/66
[2021-05-14] MEDS: MICONAZOLE 2% POWDER (DESENEX AF) 90 GM TOP SCH ×2 (08:34→21:22)
[2021-05-14] MEDS: OXYBUTYNIN (DITROPAN) 5 MG TAB PO SCH ×2 (08:34→21:22)
--- NOTE | 2021-05-14 10:21 | Progress Note ---
Subjective Date Seen by a Provider: May 14, 2021 Time Seen by a Provider: 10:00 Subjective/Events-last exam doing well. tolerating regular diet. functional transverse loop colostomy. pain controlled. Objective Exam Vital Signs Date Time Temp Pulse Resp B/P (MAP) Pulse Ox O2 Delivery O2 Flow Rate FiO2 05/14/21 08:00 35.8 86 16 144/66 (92) 100 Nasal Cannula 1.00 05/14/21 07:00 85 05/14/21 03:35 36.4 81 20 156/70 (98) 95 Nasal Cannula 1.00 05/14/21 01:00 83 05/13/21 23:27 36.6 86 20 158/70 (99) 98 Nasal Cannula 1.00 05/13/21 20:52 180/68 (105) 05/13/21 20:00 36.1 97 20 99 Nasal Cannula 1.00 05/13/21 19:50 Nasal Cannula 1.00 05/13/21 19:00 91 05/13/21 18:37 95 Nasal Cannula 1.00 05/13/21 16:00 37.2 97 18 206/79 (121) 96 Nasal Cannula 1.00 05/13/21 13:00 84 05/13/21 12:00 36.7 84 20 160/80 (106) 98 Nasal Cannula 1.00 I & O 05/14/21 07:00 Intake Total 2050 ml Output Total 2960 ml Balance -910 ml Capillary Refill : General Appearance: No Apparent Distress HEENT: PERRL/EOMI Respiratory: Chest Non Tender, Lungs Clear Cardiovascular: Regular Rate, Rhythm Gastrointestinal: normal bowel sounds, soft, tenderness Extremity: Normal Capillary Refill Neurologic/Psychiatric: Alert, Oriented x3 Skin: Normal Color Lymphatic: No Adenopathy Results Lab Laboratory Tests 05/14/21 05:30: White Blood Count 14.9H, Red Blood Count 3.30L, Hemoglobin 9.2L, Hematocrit 30L, Mean Corpuscular Volume 91, Mean Corpuscular Hemoglobin 28, Mean Corpuscular Hemoglobin Concent 31L, Red Cell Distribution Width 13.9, Platelet Count 560H, Mean Platelet Volume 8.5L, Sodium Level 136, Potassium Level 4.1, Chloride Level 101, Carbon Dioxide Level 26, Anion Gap 9, Blood Urea Nitrogen 5L, Creatinine 0.57L, Estimat Glomerular Filtration Rate > 60, BUN/Creatinine Ratio 9, Glucose Level 132H, Calcium Level 8.6 Microbiology 05/11/21 MRSA Screen - Final, Complete MRSA not isolated Assessment/Plan Assessment/Plan Assess & Plan/Chief Complaint s/p transverse loop colostomy for enterocutaneous and enterovesicular fistula. cont diet. eval for transfer to [facility] in am. MINNIE BREEN MD May 14, 2021 10:21
[2021-05-14 12:00] VITALS: BP 138/64
[2021-05-14 15:51] VITALS: BP 160/70
[2021-05-14 19:14] VITALS: BP 180/80
[2021-05-14] MEDS: fentaNYL INJ 100 MCG/2 ML AMP IVP PRN (19:35)
[2021-05-14] MEDS: SERTRALINE 50 MG (ZOLOFT) TABLET PO SCH (21:22)
[2021-05-14] MEDS: GABAPENTIN 100 MG (NEURONTIN) CAP PO SCH (21:22)
[2021-05-14] MEDS: traZODone 100 MG (DESYREL) TAB PO SCH (21:22)
[2021-05-15 00:21] VITALS: BP 158/70
[2021-05-15 03:43] VITALS: BP 152/60
[2021-05-15 05:22] LABS: HEMATOCRIT 30 % (35-52); HEMOGLOBIN 9.1 g/dL (11.5-16.0); MEAN CORPUSCULAR HEMOGLOBIN 28 pg (25-34); MEAN CORPUSCULAR HGB CONC 31 g/dL (32-36); MEAN CORPUSCULAR VOLUME 93 fL (80-99); MEAN PLATELET VOLUME 8.4 fL (9.0-12.2); PLATELET COUNT 570 10^3/uL (130-400); WHITE BLOOD COUNT 14.1 10^3/uL (4.3-11.0)
[2021-05-15 05:32] LABS: CHLORIDE 100 MMOL/L (98-107); POTASSIUM 4.3 MMOL/L (3.6-5.0); SODIUM 136 MMOL/L (135-145)
[2021-05-15 05:34] LABS: CALCIUM 8.5 MG/DL (8.5-10.1); GLUCOSE 163 MG/DL (70-105)
[2021-05-15 05:36] LABS: CARBON DIOXIDE 28 MMOL/L (21-32)
[2021-05-15 05:38] LABS: CREATININE SERUM 0.65 MG/DL (0.60-1.30); GFR ESTIMATED > 60
[2021-05-15 05:39] LABS: BUN/CREATININE RATIO 12
[2021-05-15] MEDS: LEVOTHYROXINE 25 MCG (LEVOTHROID) TAB PO SCH (06:44)
[2021-05-15] MEDS: LACTOBACILLUS Acidoph/Bulgar 1 GM (LACTINEX) PACKET PO SCH ×2 (06:44→11:17)
[2021-05-15 07:26] VITALS: BP 154/65
[2021-05-15] MEDS: OXYBUTYNIN (DITROPAN) 5 MG TAB PO SCH (08:19)
[2021-05-15] MEDS: MICONAZOLE 2% POWDER (DESENEX AF) 90 GM TOP SCH (08:19)
--- NOTE | 2021-05-15 10:18 | Physical Therapy Daily Note ---
PT Daily Note-Current Subjective Patient is in bed and reports she is feeling better but her BP is high. Agrees to PT. Mental Status Patient Orientation: Normal For Age Attachments: Oxygen Transfers SCALE: Activities may be completed with or without assistive devices. 3-Ixrlvwjnoh-rwduyhk completes the activity by him/herself with no assistance from a helper. 5-Set-up or Clean-up Assistance-helper sets up or cleans up; patient completes activity. [place] assists only prior to or following the activity. 4-Supervision or Touching Assistance-helper provides verbal cues and/or touching/steadying and/or contact guard assistance as patient completes activity. Assistance may be provided throughout the activity or intermittently. 3-Partial/Moderate Assistance-helper does LESS THAN HALF the effort. [place] lifts, holds or supports trunk or limbs, but provides less than half the effort. 2-Substantial/Maximal Assistance-helper does MORE THAN HALF the effort. [place] lifts or holds trunk or limbs and provides more than half the effort. 2-Zkarrjudb-splivp does ALL the effort. Patient does none of the effort to complete the activity. Or, the assistance of 2 or more helpers is required for the patient to complete the activity. If activity was not attempted, code reason: 7-Patient Refused. 9-Not Applicable-not attempted and the patient did not perform the activity before the current illness, exacerbation or injury. 10-Not Attempted due to Environmental Limitations-(lack of equipment, weather restraints, etc.). 88-Not Attempted due to Medical Conditions or Safety Concerns. Lying to Sitting/Side of Bed(Q: 6 Sit to Stand (QC): 4 Chair/Crm-dj-Knftm Xfer(QC): 4 Toilet Transfer (QC): 4 Gait Training Does the Patient Walk?: Yes Distance: 150' Walk 10 feet (QC): 4 Walk 50 ft with 2 Turns(QC): 4 Walk 150 ft (QC): 4 Gait Assistive Device: FWW CGA for safety/functional gait sequence Assessment Assisted patient with toileting and changing depends. Patient is up in recliner awaiting breakfast tray. PT Receiver Bulk System Goals [facility] Goals PT Receiver Bulk System Goals Time Frame: May 20, 2021 Roll Left & Right (QC): 4 Sit to Lying (QC): 4 Lying-Sitting on Side/Bed(QC): 4 Sit to Stand (QC): 4 Chair/Nka-wf-Wyptb Xfer(QC): 4 Toilet Transfer (QC): 4 Walk 10 feet (QC): 4 Walk 50ft with 2 Turns (QC): 4 Walk 150 ft (QC): 4 PT Plan Treatment/Plan Treatment Plan: Continue Plan of Care Treatment Plan: Bed Mobility, Education, Functional Activity Jennifer, Functional Strength, Gait, Safety, Therapeutic Exercise, Transfers Treatment Duration: May 20, 2021 Frequency: 6 times per week Estimated Hrs Per Day: .25 hour per day Patient and/or Family Agrees t: Yes Time/GCodes Time In: 940 Time Out: 951 Total Billed Treatment Time: 11 Total Billed Treatment 1 visit FA 11 min HAMMAD BROWN PT May 15, 2021 10:18
[2021-05-15 10:33] VITALS: BP 154/65
[2021-05-15] MEDS ORDERED: RT-ALBUTEROL SULF 2.5 MG/3 ML PRE-MIX VIAL INH PRN (11:00)
[2021-05-15] MEDS: HYDROcodone/APAP 5 MG/325 MG (LORTAB) TAB PO PRN ×2 (11:17→14:56)
--- NOTE | 2021-05-15 11:37 | Progress Note - Surgery ---
Subjective Date Seen by a Provider: May 15, 2021 Time Seen by a Provider: 09:17 Subjective/Events-last exam Colostomy functioning. Tolerating diet. Pain controlled. Denies any new complaints. Denies n/v fever sweats chills shortness of breath or chest pain. Objective Exam Vital Signs Date Time Temp Pulse Resp B/P (MAP) Pulse Ox O2 Delivery O2 Flow Rate FiO2 05/15/21 10:33 36.4 78 97 24 05/15/21 08:00 Nasal Cannula 1.00 05/15/21 07:26 36.4 79 18 154/65 (94) 99 Nasal Cannula 1.00 05/15/21 07:23 97 Nasal Cannula 1.00 05/15/21 03:43 36.6 82 18 152/60 (90) 98 Nasal Cannula 1.00 05/15/21 01:00 83 05/15/21 00:21 36.5 77 18 158/70 (99) 98 Nasal Cannula 1.00 05/14/21 19:30 Nasal Cannula 1.00 05/14/21 19:14 36.6 81 18 180/80 (113) 99 Nasal Cannula 1.00 05/14/21 19:00 82 05/14/21 15:51 36.2 77 18 160/70 (100) 98 Nasal Cannula 1.00 05/14/21 12:52 78 05/14/21 12:00 35.9 74 20 138/64 (88) 99 Nasal Cannula 1.00 I & O 05/15/21 07:00 Intake Total 1180 ml Output Total 925 ml Balance 255 ml Capillary Refill : General Appearance: No Apparent Distress HEENT: PERRL/EOMI Neck: Normal Inspection, Supple Respiratory: Chest Non Tender, No Accessory Muscle Use, No Respiratory Distress Cardiovascular: Regular Rate, Rhythm, No JVD Gastrointestinal: non tender, soft, other (transverse colostomy functioning and pink less edema, fistula bag with drainage.) Extremity: Normal Capillary Refill Neurologic/Psychiatric: Alert, Oriented x3 Skin: Normal Color Lymphatic: No Adenopathy Results Lab Laboratory Tests 05/15/21 05:14: White Blood Count 14.1H, Red Blood Count 3.20L, Hemoglobin 9.1L, Hematocrit 30L, Mean Corpuscular Volume 93, Mean Corpuscular Hemoglobin 28, Mean Corpuscular Hemoglobin Concent 31L, Red Cell Distribution Width 14.0, Platelet Count 570H, Mean Platelet Volume 8.4L, Sodium Level 136, Potassium Level 4.3, Chloride Level 100, Carbon Dioxide Level 28, Anion Gap 8, Blood Urea Nitrogen 8, Creatinine 0.65, Estimat Glomerular Filtration Rate > 60, BUN/Creatinine Ratio 12, Glucose Level 163H, Calcium Level 8.5 Microbiology 05/11/21 MRSA Screen - Final, Complete MRSA not isolated Assessment/Plan Assessment/Plan Assessment/Plan s/p transverse loop colostomy for enterocutaneous and enterovesicular fistula. cont diet. eval for transfer to [facility] today pain control. ROHAN MACHADO DO May 15, 2021 11:37
[2021-05-15 11:42] VITALS: BP 127/64
--- NOTE | 2021-05-15 11:59 | Discharge Inst-Skilled Nursing ---
Discharge Inst-Skilled NF Chief Complaint Pt is a 81yoCF with a PMH of CAD, HTN, HLD, Hypothyroidism who was admitted for vesicocolinic fistula fistula repair. She has had recurrent UTI and so underwent diagnostic lap with subsequent diverting colostomy. Consult/Follow Up/Orders Follow Up Appt.: Chace- 2 weeks. Skilled NF Admit to: [facility] Certification (SNF) I certify that SNF services are required to be given on an inpatient basis because of the above named patient's need for group home care on a jeremy nuing basis for the conditions(s) for which he/she was receiving inpatient hospital services prior to his/her transfer to the SNF. Snf Facility Order: Nursing Services, Extension Agent-Evaluate & Treat, Physical Therapy-Evaluate & Treat, Wound Care-Eval/Treat (colostomy and fistula) Oxygen Delivery Method: Nasal Cannula New & Resume Previous Orders Rohan Mas May 15, 2021 11:57 ROHAN MAS DO May 15, 2021 11:59
[2021-05-15 15:15] VITALS: BP 127/64
[2021-05-15] MEDS ORDERED: RT-ALBUTEROL SULF 2.5 MG/3 ML PRE-MIX VIAL INH SCH (21:00)
== END 2021-05-15 15:15 | disposition home health service (06) | DRG 330 ==
LOC: 4TH 05:58 → SURG 05:59 → 4TH 10:22
PROVIDERS: ADMIT Surgery; ATTEND Surgery
PROC: 0D1L0Z4 Bypass Transverse Colon to Cutaneous, Open Approach (ICD-10-PCS; principal; 2021-05-11 07:47)
PROC: 0T9880Z Drainage of Bilateral Ureters with Drainage Device, Via Natural or Artificial Opening Endoscopic (ICD-10-PCS; 2021-05-11 07:47)
DX: K63.2 Fistula of intestine (principal); N32.1 Vesicointestinal fistula; N39.0 Urinary tract infection, site not specified; I12.9 Hypertensive chronic kidney disease with stage 1 through stage 4 chronic kidney disease, or unspecified chronic kidney disease; E11.22 Type 2 diabetes mellitus with diabetic chronic kidney disease; N18.9 Chronic kidney disease, unspecified; I25.10 Atherosclerotic heart disease of native coronary artery without angina pectoris; J44.9 Chronic obstructive pulmonary disease, unspecified; E78.5 Hyperlipidemia, unspecified; E03.9 Hypothyroidism, unspecified; K57.90 Diverticulosis of intestine, part unspecified, without perforation or abscess without bleeding; F41.9 Anxiety disorder, unspecified; F32.9 Major depressive disorder, single episode, unspecified; M19.91 Primary osteoarthritis, unspecified site; I25.2 Old myocardial infarction; Z87.891 Personal history of nicotine dependence; Z99.81 Dependence on supplemental oxygen; Z95.1 Presence of aortocoronary bypass graft; Z83.3 Family history of diabetes mellitus; Z82.49 Family history of ischemic heart disease and other diseases of the circulatory system
CPT/HCPCS: 36415; 76000; 80048; 82947; 85007; 85025; 85027; 86850; 86900; 86901; 87081; 94760

== ENCOUNTER 2021-05-18 16:35 | Inpatient (IN) | payer MEDICARE, MEDICAID ==
[~2021-05-18] VITALS: Ht 152.4 cm; Wt 49.4 kg
[2021-05-18] MEDS ORDERED: HYOSCYAMINE 0.125 MG (LEVSIN) TAB SL ONE (18:00)
[2021-05-18 18:01] LABS: BASOPHILS # (AUTO) 0.1 10^3/uL (0.0-0.1); BASOPHILS % (AUTO) 1 % (0-10); EOSINOPHILS # (AUTO) 0.2 10^3/uL (0.0-0.3); EOSINOPHILS % (AUTO) 1 % (0-10); HEMATOCRIT 32 % (35-52); HEMOGLOBIN 9.7 g/dL (11.5-16.0); LYMPHOCYTES # (AUTO) 6.9 10^3/uL (1.0-4.0); LYMPHOCYTES % (AUTO) 33 % (12-44); MEAN CORPUSCULAR HEMOGLOBIN 28 pg (25-34); MEAN CORPUSCULAR HGB CONC 30 g/dL (32-36); MEAN CORPUSCULAR VOLUME 94 fL (80-99); MEAN PLATELET VOLUME 8.4 fL (9.0-12.2); MONOCYTES # (AUTO) 1.2 10^3/uL (0.0-1.0); MONOCYTES % (AUTO) 6 % (0-12); NEUTROPHILS # (AUTO) 12.3 10^3/uL (1.8-7.8); NEUTROPHILS % (AUTO) 59 % (42-75); PLATELET COUNT 632 10^3/uL (130-400)
[2021-05-18 18:15] LABS: ALBUMIN 3.7 GM/DL (3.2-4.5); CHLORIDE 91 MMOL/L (98-107); POTASSIUM 3.9 MMOL/L (3.6-5.0); SODIUM 133 MMOL/L (135-145)
[2021-05-18 18:17] LABS: CALCIUM 9.3 MG/DL (8.5-10.1)
[2021-05-18 18:18] LABS: GLUCOSE 168 MG/DL (70-105); TOTAL PROTEIN 7.7 GM/DL (6.4-8.2)
[2021-05-18 18:19] LABS: BILIRUBIN,URINE NEGATIVE (NEGATIVE); CLARITY,URINE TURBID; COLOR,URINE YELLOW; GLUCOSE, URINE (UA) 2+ (NEGATIVE); KETONES,URINE NEGATIVE (NEGATIVE); LEUKOCYTE ESTERASE ,URINE 1+ (NEGATIVE); NITRITE,URINE NEGATIVE (NEGATIVE); PROTEIN,URINE 1+ (NEGATIVE)
[2021-05-18 18:19] LABS: CARBON DIOXIDE 31 MMOL/L (21-32)
[2021-05-18 18:20] LABS: BILIRUBIN,TOTAL 0.2 MG/DL (0.1-1.0)
[2021-05-18 18:21] LABS: ALKALINE PHOSPHATASE 65 U/L (40-136)
[2021-05-18 18:22] LABS: ATYPICAL LYMPHOCYTES 1 %; BAND NEUTROPHILS 1 %; CREATININE SERUM 0.71 MG/DL (0.60-1.30); EOSINOPHILS % (MANUAL) 2 %; GFR ESTIMATED > 60; HYPOCHROMASIA SLIGHT; LYMPHOCYTES % (MANUAL) 34 %; MONOCYTES % (MANUAL) 7 %; NEUTROPHILS % (MANUAL) 56 %; STOMATOCYTES MODERATE
[2021-05-18 18:23] LABS: BUN/CREATININE RATIO 13
[2021-05-18 18:24] LABS: ALANINE AMINOTRANSFERASE 6 U/L (0-55)
[2021-05-18 18:25] LABS: LIPASE 30 U/L (8-78)
[2021-05-18 18:27] LABS: BACTERIA,URINE LARGE /HPF; WBC,URINE TNTC /HPF
[2021-05-18] MEDS ORDERED: PIPERACILLIN SODIUM/TAZOBACTAM 4.5 GM in NS (IVPB) 100 ML IV ONE (19:00)
--- NOTE | 2021-05-18 19:01 | ED General ---
General Chief Complaint: General Problems/Pain Stated Complaint: ABNORMAL LABS Nursing Triage Note: PT TO ED VIA POV. PT AND TRANSPORTATION FROM [facility] REPORT ABNORMAL LABS WITH INCREASED WBC OF 20.3. PT HAD RECENT COLOSTOMY SURGERY AND HAS A FISTULA. PT C/O VAGINAL PAIN. 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 She was noted to have a white count of 20.4k on outpatient labs today. She is complaining of bowel cramping. She also has significant erythema and irritation of the perineum and a decubitus ulcer on her sacrum. She is afebrile. She does not have any significant tenderness in the abdomen and skin integrity around her colostomy and fistula ostomy sites appears good. Allergies and Home Medications Allergies Coded Allergies: Fish Containing Products (Unverified Allergy, Unknown, 03/07/21) iodine (Unverified Allergy, Unknown, 03/07/21) peanut (Unverified Allergy, Unknown, 03/07/21) shrimp (Verified Allergy, Unknown, 04/30/19) Uncoded Allergies: POPCORN (Allergy, Unknown, 03/07/21) Home Medications Acetaminophen 325 Mg Tablet, 650 MG PO TID PRN for PAIN-BREAKTHROUGH, (Reported) Albuterol Sulfate 1 Puff Puff, 2 PUFF IH Q4H PRN for WHEEZING, (Reported) 1 PUFF = 90 MCG Atorvastatin Calcium 20 Mg Tablet, 20 MG PO HS, (Reported) Bisacodyl 5 Mg Tablet.dr, 10 MG PO BID, (Reported) Cetirizine HCl 10 Mg Tablet, 5 MG PO DAILY, (Reported) TAKES 1/2 (10MG) TABLET Cholecalciferol (Vitamin D3) 1,000 Unit Tablet, 2,000 UNITS PO DAILY, (Reported) Cyanocobalamin (Vitamin B-12) 500 Mcg Tablet, 500 MCG PO Q48H, (Reported) Cyclobenzaprine HCl 5 Mg Tablet, 5 MG PO Q8H PRN for MUSCLE SPASMS, (Reported) Empagliflozin 25 Mg Tablet, 25 MG PO DAILY, (Reported) Estradiol 42.5 Gm Cream.appl, 1 GM VG HS, (Reported) INSERT 1 GRAM VAGINALLY AT BEDTIME EVERY SATURDAY, SATURDAY, SATURDAY RELATED TO ACUTE VAGINITIS Fluticasone Propionate 16 Gm [place].susp, 1 SPRAY NS DAILY, (Reported) Furosemide 40 Mg Tablet, 40 MG PO DAILY, (Reported) Gabapentin 100 Mg Capsule, 200 MG PO HS, (Reported) TAKES 2 (100MG) CAPSULES Hydrocodone/Acetaminophen 1 Each Tablet, 1 TAB PO Q4H PRN for PAIN-BREAKTHROUGH, (Reported) Hydrocodone/Acetaminophen 1 Each Tablet, 1-2 TAB PO Q4H PRN for PAIN-MODERATE (5-7) Prescribed by: JANN LAKHANI on 05/06/21 1222 Iron Ag,Ps/C/Fa6/B12/Zn/SA/Sto 1 Each Tablet, 1 EACH PO DAILY, (Reported) L. Acidophilus/L.bulgaricus 1 Each Tablet, 1 EACH PO DAILY, (Reported) Levothyroxine Sodium 25 Mcg Tablet, 25 MCG PO DAILY, (Reported) Lorazepam 0.5 Mg Tablet, 0.5 MG PO DAILY, (Reported) Magnesium Hydroxide 400 Mg/5 Ml Oral.susp, 30 ML PO DAILY PRN for CONSTIPATION- 7TH LINE, (Reported) Magnesium Oxide 400 Mg Tablet, 400 MG PO DAILY, (Reported) Menthol 118 Ml Gel..ml., TP Q6H PRN for SPASMS, (Reported) APPLY TO LOWER BACK Metoprolol Succinate 25 Mg Tab.er.24h, 25 MG PO DAILY, (Reported) Miconazole Nitrate 10 Gm Powder, 10 GM MC DAILY PRN, (Reported) Nystatin 100,000 Unit/1 Ml Oral.susp, 100,000 UNIT PO BID, (Reported) Ondansetron HCl 4 Mg Tab, 4 MG PO Q8H PRN for NAUSEA/VOMITING-1ST LINE, (Reported) Oxybutynin Chloride 10 Mg Tab.er.24, 10 MG PO DAILY, (Reported) Polyethylene Glycol 3350 17 Gm Powd.pack, 17 GM PO Q12H PRN for CONSTIPATION-1ST LINE, (Reported) Sennosides/Docusate Sodium 1 Each Tablet, 3 TAB PO DAILY, (Reported) Sertraline HCl 50 Mg Tablet, 50 MG PO DAILY, (Reported) Sodium Chloride 1 Gm Tab, 1 GM PO BID, (Reported) Trazodone HCl 100 Mg Tablet, 100 MG PO HS, (Reported) Trolamine Salicylate/Aloe Vera 35.4 Gm Cream..g., 35.4 GM TP Q8H PRN for PAIN- BREAKTHROUGH, (Reported) Ubidecarenone/Vit E Acetate 1 Each Capsule, 100 MG PO DAILY, (Reported) Patient Home Medication List Home Medication List Reviewed: Yes Review of Systems Review of Systems Constitutional: no symptoms reported EENTM: no symptoms reported Respiratory: no symptoms reported Cardiovascular: no symptoms reported Gastrointestinal: see HPI Genitourinary: see HPI : No Musculoskeletal: no symptoms reported Skin: see HPI Psychiatric/Neurological: No Symptoms Reported Hematologic/Lymphatic: See HPI Immunological/Allergic: no symptoms reported Past Rbuhdli-Tyuavc-Tvjnrm Hx Past Med/Social Hx: Reviewed Nursing Past Med/Soc Hx Patient Social History Alcohol Use: Denies Use Smoking Status: Former Smoker Type Used: Cigarettes Former Smoker, Quit: Nov 25, 1982 2nd Hand Smoke Exposure: No Recent Infectious Disease Expo: No Recent Hopitalizations: No Immunizations Up To Date Date of Pneumonia Vaccine: Aug 28, 2019 Date of Influenza Vaccine: Aug 30, 2020 Seasonal Allergies Seasonal Allergies: No Past Medical History Surgeries: Yes (BYPASS GRAFT, FOOT MANIPULATION, FLEXIBLE DIAG CYSTOSCOPY, colostomy) CABG, Hysterectomy Respiratory: Yes (COPD) COPD Currently Using CPAP: No Currently Using BIPAP: No Cardiac: Yes Coronary Artery Disease, Heart Attack, 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 Neurological: No 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 Sexually Transmitted Disease: No HIV/AIDS: No Genitourinary: Yes Renal Failure Gastrointestinal: Yes (colon mass, COLOSTOMY) Diverticulosis Musculoskeletal: Yes Arthritis Endocrine: Yes Diabetes, Insulin dep HEENT: Yes (WEARS GLASSES) Loss of Vision: Denies Cancer: No Psychosocial: Yes Sleep Difficulties, Anxiety, Depression Integumentary: No Blood Disorders: No Adverse Reaction/Blood Tranf: No (N/A) Family Medical History Reviewed Nursing Family Hx Alzheimer's disease Cardiovascular disease 19 FATHER 19 MOTHER Diabetes mellitus 19 MOTHER No Pertinent Family Hx Physical Exam Vital Signs Vital Signs - First Documented 05/18/21 17:10 Temp 36.8 Pulse 82 Resp 20 B/P (MAP) 151/60 (90) Pulse Ox 100 O2 Delivery Room Air Capillary Refill : Less Than 3 Seconds Height, Weight, BMI Height: 0'60.00" Weight: 150lbs. 3.2oz. 68.603962ho; 21.00 BMI Method:Stated General Appearance: No Apparent Distress, WD/WN HEENT: PERRL/EOMI, Normal ENT Inspection, Other (Mucous membranes moist) Neck: Normal Inspection Respiratory: Lungs Clear, Normal Breath Sounds, No Accessory Muscle Use Cardiovascular: Regular Rate, Rhythm, No Edema, No Murmur Gastrointestinal: Normal Bowel Sounds, Non Tender, Soft; No Distended; Other (Colostomy and ostomy of fistula intact with normal skin integrity) Genital/Rectal: Other (Perineum inflamed and erythematous, tender) Extremity: Normal Inspection, No Pedal Edema Neurologic/Psychiatric: Alert, Oriented x3, No Motor/Sensory Deficits, Normal Mood/Affect, leaf coverer II-XII Norm as Tested, Other (Patient is adentulous and speech is difficult to understand) Skin: Normal Color, Warm/Dry, Erythema (Hernia), Other (Stage II decubitus ulcer over the sacrum) Focused Exam Lactate Level 05/18/21 17:50: Lactic Acid Level 1.14 Lactic Acid Level Laboratory Tests Test 05/18/21 17:50 Lactic Acid Level 1.14 MMOL/L (0.50-2.00) Progress/Results/Core Measures Suspected Sepsis Recent Fever Within 48 Hours: No Infection Criteria Present: None New/Unexplained Altered Menta: No Sepsis Screen: No Definite Risk SIRS Temperature: Pulse: 82 Respiratory Rate: 20 Laboratory Tests 05/18/21 17:50: White Blood Count 21.0H Blood Pressure 151 /60 Mean: 90 05/18/21 17:50: Lactic Acid Level 1.14 Laboratory Tests 05/18/21 17:50: Creatinine 0.71, Platelet Count 632H, Total Bilirubin 0.2 Results/Orders Lab Results Laboratory Tests Test 05/18/21 17:50 05/18/21 18:10 Range/Units White Blood Count 21.0 H 4.3-11.0 10^3/uL Red Blood Count 3.42 L 3.80-5.11 10^6/uL Hemoglobin 9.7 L 11.5-16.0 g/dL Hematocrit 32 L 35-52 % Mean Corpuscular Volume 94 80-99 fL Mean Corpuscular Hemoglobin 28 25-34 pg Mean Corpuscular Hemoglobin Concent 30 L 32-36 g/dL Red Cell Distribution Width 13.9 10.0-14.5 % Platelet Count 632 H 130-400 10^3/uL Mean Platelet Volume 8.4 L 9.0-12.2 fL Immature Granulocyte % (Auto) 1 % Neutrophils (%) (Auto) 59 42-75 % Lymphocytes (%) (Auto) 33 12-44 % Monocytes (%) (Auto) 6 0-12 % Eosinophils (%) (Auto) 1 0-10 % Basophils (%) (Auto) 1 0-10 % Neutrophils # (Auto) 12.3 H 1.8-7.8 10^3/uL Lymphocytes # (Auto) 6.9 H 1.0-4.0 10^3/uL Monocytes # (Auto) 1.2 H 0.0-1.0 10^3/uL Eosinophils # (Auto) 0.2 0.0-0.3 10^3/uL Basophils # (Auto) 0.1 0.0-0.1 10^3/uL Immature Granulocyte # (Auto) 0.2 H 0.0-0.1 10^3/uL Neutrophils % (Manual) 56 % Lymphocytes % (Manual) 34 % Monocytes % (Manual) 7 % Eosinophils % (Manual) 2 % Band Neutrophils 1 % Atypical Lymphocytes 1 % Hypochromasia SLIGHT Stomatocytes MODERATE Sodium Level 133 L 135-145 MMOL/L Potassium Level 3.9 3.6-5.0 MMOL/L Chloride Level 91 L 98-107 MMOL/L Carbon Dioxide Level 31 21-32 MMOL/L Anion Gap 11 5-14 MMOL/L Blood Urea Nitrogen 9 7-18 MG/DL Creatinine 0.71 0.60-1.30 MG/DL Estimat Glomerular Filtration Rate > 60 BUN/Creatinine Ratio 13 Glucose Level 168 H 70-105 MG/DL Lactic Acid Level 1.14 0.50-2.00 MMOL/L Calcium Level 9.3 8.5-10.1 MG/DL Corrected Calcium 9.5 8.5-10.1 MG/DL Total Bilirubin 0.2 0.1-1.0 MG/DL Aspartate Amino Transf (AST/SGOT) 14 5-34 U/L Alanine Aminotransferase (ALT/SGPT) 6 0-55 U/L Alkaline Phosphatase 65 40-136 U/L C-Reactive Protein High Sensitivity 5.60 H 0.00-0.50 MG/DL Total Protein 7.7 6.4-8.2 GM/DL Albumin 3.7 3.2-4.5 GM/DL Lipase 30 8-78 U/L Urine Color YELLOW Urine Clarity TURBID Urine pH 6.0 5-9 Urine Specific [place] 1.010 L 1.016-1.022 Urine Protein 1+ H NEGATIVE Urine Glucose (UA) 2+ H NEGATIVE Urine Ketones NEGATIVE NEGATIVE Urine Nitrite NEGATIVE NEGATIVE Urine Bilirubin NEGATIVE NEGATIVE Urine Urobilinogen 0.2 < = 1.0 MG/DL Urine Leukocyte Esterase 1+ H NEGATIVE Urine RBC (Auto) 1+ H NEGATIVE Urine RBC 2-5 H /HPF Urine WBC TNTC H /HPF Urine Crystals NONE /LPF Urine Bacteria LARGE H /HPF Urine Casts NONE /LPF Urine Mucus NEGATIVE /LPF Urine Culture Indicated YES My Orders Orders - ANNITA ARAUZ MD Cbc With Automated Diff (05/18/21 17:35) Comprehensive Metabolic Panel (05/18/21 17:35) Hs C Reactive Protein (05/18/21 17:35) Lipase (05/18/21 17:35) Ua Culture If Indicated (05/18/21 17:35) Ed Iv/Invasive Line Start (05/18/21 17:35) Hyoscyamine Sl Tablet (Levsin Sl Tablet) (05/18/21 18:00) Manual Differential (05/18/21 17:50) Urine Culture (05/18/21 18:10) Blood Culture (05/18/21 18:44) Sputum Culture (05/18/21 18:44) Chest 1 View, Ap/Pa Only (05/18/21 18:44) Vital Signs Adult Sepsis Patie Q15M (05/18/21 18:44) Remove Rings In Anticipation O (05/18/21 18:44) Lactic Acid Analyzer (05/18/21 18:44) Piperacillin Sodium/Tazobactam (Zosyn Vi (05/18/21 19:00) Medications Given in ED Current Medications Medications Dose Ordered Sig/Geeta Route Start Time Stop Time Status Last Admin Dose Admin Hyoscyamine Sulfate 0.125 mg ONCE ONCE SL 05/18/21 18:00 05/18/21 18:01 DC 05/18/21 18:03 0.125 MG Vital Signs/I&O 05/18/21 17:10 Temp 36.8 Pulse 82 Resp 20 B/P (MAP) 151/60 (90) Pulse Ox 100 O2 Delivery Room Air Capillary Refill : Less Than 3 Seconds Blood Pressure Mean: 90 Progress Note : Time: 19:05 Progress Note Levsin improved cramping. White count was 21,000. CRP is modestly elevated. She has pyuria on urinalysis. She does not meet septic criteria but there is concerned about her overall status. Therefore, after discussing with Dr. Morejon, we are obtaining blood cultures and lactic acid prior to administering antibiotics. Zosyn will be used for initial antibiotic therapy. I spoke with Dr. Mas about her situation as well. He agrees patient should be admitted on IV antibiotics overnight. I discussed CODE STATUS with the patient and she wishes to be full code at this time. Padded dressing was placed over the sacral decubitus ulcer. Departure Communication (Admissions) Time/Spoke to Admitting Phy: 18:45 Dr. Morejon Time/Spoke to Consulting Phy: 18:35 Dr. Mas Impression Primary Impression: Complicated urinary tract infection Additional Impressions: Intestinal cramps Colonic vesicular fistula Candidiasis of perineum Decubitus ulcer of sacral region, stage 2 Disposition: ADMITTED INPATIENT Condition: Improved Admissions Decision to Admit Reason: Admit from ER (General) Decision to Admit/Date: May 18, 2021 Time/Decision to Admit Time: 18:35 Departure-Patient Inst. Referrals: MACEY CAO MD (PCP/Family) Primary Care Physician ANNITA ARAUZ MD May 18, 2021 19:01
--- NOTE | 2021-05-18 19:45 | Diagnostic Imaging Report ---
EXAMINATION: Chest 1 view HISTORY: Sepsis. Elevated white blood cell count. COMPARISON: 06/08/2019. FINDINGS: Stable elevated left hemidiaphragm. Atelectasis is seen in the left lung base. No large pleural effusion or pneumothorax. Stable prominent cardiac silhouette with post CABG changes noted. No acute osseous abnormalities. IMPRESSION: 1. Stable chest with stable elevated left hemidiaphragm and left basilar atelectasis. Dictated by: Dictated on workstation # [id number]
[2021-05-18] MEDS ORDERED: FLUCONAZOLE 200 MG/NACL 100 ML (PRE-MIX) IV NR (20:15)
[2021-05-18] MEDS ORDERED: CATHETER FLUSH 10 ML SYR IV PRN (20:15)
[2021-05-18] MEDS ORDERED: ONDANSETRON 4 MG/2 ML (SDV) Z0FRAN IV PRN (20:15)
[2021-05-18 20:18] VITALS: BP 167/84
[2021-05-18 20:20] VITALS: BP 167/54
[2021-05-18] MEDS: CATHETER FLUSH 10 ML SYR IV SCH (20:59)
[2021-05-19] VITALS (7 sets, daily range): BP systolic 128–172; BP diastolic 65–81
[2021-05-19] MEDS: HYOSCYAMINE 0.125 MG (LEVSIN) TAB SL PRN ×2 (00:01→09:10)
[2021-05-19] MEDS: PIPERACILLIN/TAZO 4.5 GM/NS 100 ML IV SCH ×6 (00:01→17:12)
[2021-05-19] MEDS: CATHETER FLUSH 10 ML SYR IV SCH ×3 (00:02→21:38)
[2021-05-19] MEDS ORDERED: fentaNYL INJ 100 MCG/2 ML AMP ONE (01:11)
[2021-05-19] MEDS: fentaNYL INJ 100 MCG/2 ML AMP IVP PRN ×3 (01:12→09:10)
[2021-05-19 05:53] LABS: BASOPHILS # (AUTO) 0.1 10^3/uL (0.0-0.1); BASOPHILS % (AUTO) 1 % (0-10); EOSINOPHILS # (AUTO) 0.3 10^3/uL (0.0-0.3); EOSINOPHILS % (AUTO) 2 % (0-10); HEMATOCRIT 30 % (35-52); LYMPHOCYTES # (AUTO) 6.3 10^3/uL (1.0-4.0); LYMPHOCYTES % (AUTO) 38 % (12-44); MEAN CORPUSCULAR HEMOGLOBIN 28 pg (25-34); MEAN CORPUSCULAR HGB CONC 30 g/dL (32-36); MEAN CORPUSCULAR VOLUME 94 fL (80-99); MEAN PLATELET VOLUME 8.7 fL (9.0-12.2); MONOCYTES # (AUTO) 1.1 10^3/uL (0.0-1.0); MONOCYTES % (AUTO) 7 % (0-12); NEUTROPHILS # (AUTO) 8.6 10^3/uL (1.8-7.8); NEUTROPHILS % (AUTO) 52 % (42-75); PLATELET COUNT 580 10^3/uL (130-400); WHITE BLOOD COUNT 16.5 10^3/uL (4.3-11.0)
[2021-05-19 06:29] LABS: CHLORIDE 97 MMOL/L (98-107); POTASSIUM 3.7 MMOL/L (3.6-5.0); SODIUM 136 MMOL/L (135-145)
[2021-05-19 06:30] LABS: CALCIUM 8.9 MG/DL (8.5-10.1)
[2021-05-19 06:31] LABS: GLUCOSE 136 MG/DL (70-105)
[2021-05-19 06:32] LABS: CARBON DIOXIDE 27 MMOL/L (21-32)
[2021-05-19 06:35] LABS: BUN/CREATININE RATIO 10; GFR ESTIMATED > 60
--- NOTE | 2021-05-19 07:29 | Consultation - Surgery ---
History of Present Illness History of Present Illness Patient Consulted On(emir/time) 05/19/21 07:29 Date Seen by Provider: May 19, 2021 Time Seen by Provider: 07:29 History of Present Illness Consult requested by Dr. Still for ostomy. Patient is 81-year-old female known to me she has a colovesicular and colocutaneous fistula. She had a diverting loop colostomy for management due to her high risk of comorbidities. Patient was found to have elevated white count and pyuria. Patient has chronic abdominal pain which she states is about the same. She has output from her colostomy. She has a mucous purulent drainage from her fistula. Typically the fistula has stool colored drainage but this has changed since having the diverting colostomy. Patient has been afebrile. She denies any nausea vomiting fever sweats chills shortness of breath or chest pain. Allergies and Home Medications Allergies Coded Allergies: Fish Containing Products (Unverified Allergy, Unknown, 03/07/21) iodine (Unverified Allergy, Unknown, 03/07/21) peanut (Unverified Allergy, Unknown, 03/07/21) shrimp (Verified Allergy, Unknown, 04/30/19) Uncoded Allergies: POPCORN (Allergy, Unknown, 03/07/21) Home Medications Acetaminophen 325 Mg Tablet, 650 MG PO TID PRN for PAIN-BREAKTHROUGH, (Reported) Albuterol Sulfate 1 Puff Puff, 2 PUFF IH Q4H PRN for WHEEZING, (Reported) 1 PUFF = 90 MCG Atorvastatin Calcium 20 Mg Tablet, 20 MG PO HS, (Reported) Bisacodyl 5 Mg Tablet.dr, 10 MG PO BID, (Reported) Cetirizine HCl 10 Mg Tablet, 5 MG PO DAILY, (Reported) TAKES 1/2 (10MG) TABLET Cholecalciferol (Vitamin D3) 1,000 Unit Tablet, 2,000 UNITS PO DAILY, (Reported) Cyanocobalamin (Vitamin B-12) 500 Mcg Tablet, 500 MCG PO Q48H, (Reported) Cyclobenzaprine HCl 5 Mg Tablet, 5 MG PO Q8H PRN for MUSCLE SPASMS, (Reported) Empagliflozin 25 Mg Tablet, 25 MG PO DAILY, (Reported) Estradiol 42.5 Gm Cream.appl, 1 GM VG HS, (Reported) INSERT 1 GRAM VAGINALLY AT BEDTIME EVERY SATURDAY, SATURDAY, SATURDAY RELATED TO ACUTE VAGINITIS Fluticasone Propionate 16 Gm Esmond.susp, 1 SPRAY NS DAILY, (Reported) Furosemide 40 Mg Tablet, 40 MG PO DAILY, (Reported) Gabapentin 100 Mg Capsule, 200 MG PO HS, (Reported) TAKES 2 (100MG) CAPSULES Hydrocodone/Acetaminophen 1 Each Tablet, 1 TAB PO Q4H PRN for PAIN-BREAKTHROUGH, (Reported) Hydrocodone/Acetaminophen 1 Each Tablet, 1-2 TAB PO Q4H PRN for PAIN-MODERATE (5-7) Prescribed by: JANN LAKHANI on 05/06/21 1222 Iron Ag,Ps/C/Fa6/B12/Zn/SA/Sto 1 Each Tablet, 1 EACH PO DAILY, (Reported) L. Acidophilus/L.bulgaricus 1 Each Tablet, 1 EACH PO DAILY, (Reported) Levothyroxine Sodium 25 Mcg Tablet, 25 MCG PO DAILY, (Reported) Lorazepam 0.5 Mg Tablet, 0.5 MG PO DAILY, (Reported) Magnesium Hydroxide 400 Mg/5 Ml Oral.susp, 30 ML PO DAILY PRN for CONSTIPATION- 7TH LINE, (Reported) Magnesium Oxide 400 Mg Tablet, 400 MG PO DAILY, (Reported) Menthol 118 Ml Gel..ml., TP Q6H PRN for SPASMS, (Reported) APPLY TO LOWER BACK Metoprolol Succinate 25 Mg Tab.er.24h, 25 MG PO DAILY, (Reported) Miconazole Nitrate 10 Gm Powder, 10 GM MC DAILY PRN, (Reported) Nystatin 100,000 Unit/1 Ml Oral.susp, 100,000 UNIT PO BID, (Reported) Ondansetron HCl 4 Mg Tab, 4 MG PO Q8H PRN for NAUSEA/VOMITING-1ST LINE, (Reported) Oxybutynin Chloride 10 Mg Tab.er.24, 10 MG PO DAILY, (Reported) Polyethylene Glycol 3350 17 Gm Powd.pack, 17 GM PO Q12H PRN for CONSTIPATION-1ST LINE, (Reported) Sennosides/Docusate Sodium 1 Each Tablet, 3 TAB PO DAILY, (Reported) Sertraline HCl 50 Mg Tablet, 50 MG PO DAILY, (Reported) Sodium Chloride 1 Gm Tab, 1 GM PO BID, (Reported) Trazodone HCl 100 Mg Tablet, 100 MG PO HS, (Reported) Trolamine Salicylate/Aloe Vera 35.4 Gm Cream..g., 35.4 GM TP Q8H PRN for PAIN- BREAKTHROUGH, (Reported) Ubidecarenone/Vit E Acetate 1 Each Capsule, 100 MG PO DAILY, (Reported) Patient Home Medication List Home Medication List Reviewed: Yes Past Ukjxfoo-Bufefm-Dpmqyp Hx Patient Social History Smoking Status: Former Smoker Former Smoker, Quit: Nov 25, 1982 Type Used: Cigarettes 2nd Hand Smoke Exposure: No Recent Hopitalizations: No Alcohol Use?: No Have you traveled recently?: No Immunizations Up To Date Date of Pneumonia Vaccine: Aug 28, 2019 Date of Influenza Vaccine: Aug 30, 2020 Seasonal Allergies Seasonal Allergies: No Surgeries History of Surgeries: Yes (BYPASS GRAFT, FOOT MANIPULATION, FLEXIBLE DIAG CYSTOSCOPY, colostomy) Surgeries: CABG, Hysterectomy Respiratory History of Respiratory Disorde: Yes (COPD) Respiratory Disorders: COPD Cardiovascular History of Cardiac Disorders: Yes Cardiac Disorders: Coronary Artery Disease, Heart Attack, 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 Neurological History of Neurological Disord: No 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 System Hx 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 Disorders: No Sexually Transmitted Disease: No HIV/AIDS: 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 Genitourinary History of Genitourinary Disor: Yes Genitourinary Disorders: Renal Failure Gastrointestinal History of Gastrointestinal Di: Yes (colon mass, COLOSTOMY) Gastrointestinal Disorders: Diverticulosis Musculoskeletal History of Musculoskeletal Dis: Yes Musculoskeletal Disorders: Arthritis Endocrine History of Endocrine Disorders: Yes Endocrine Disorders: Diabetes, Insulin dep HEENT History of HEENT Disorders: Yes (WEARS GLASSES) Loss of Vision: Denies Cancer History of Cancer: No Psychosocial History of Psychiatric Problem: Yes Behavioral Health Disorders: Sleep Difficulties, Anxiety, Depression Integumentary History of Skin or Integumenta: No Blood Transfusions History of Blood Disorders: No Adverse Reaction to a Blood Tr: No (N/A) Reviewed Nursing Assessment Reviewed/Agree w Nursing PMH: Yes Family Medical History Significant Family History: No Pertinent Family Hx Family Medial History: Alzheimer's disease Cardiovascular disease 19 FATHER 19 MOTHER Diabetes mellitus 19 MOTHER Review of Systems-General Constitutional: weakness EENTM: No blurred vision, No double vision Respiratory: No cough, No dyspnea on exertion Cardiovascular: No chest pain, No palpitations Gastrointestinal: see HPI, abdominal pain; No nausea, No vomiting Genitourinary: No decreased output, No hematuria Musculoskeletal: No neck pain Skin: No change in color, No change in hair/nails Psychiatric/Neurological: Denies Anxiety, Denies Depressed, Denies Emotional Problems All Other Systems Reviewed Negative Unless Noted: Yes (Negative excepted noted.) Physical Exam-General Problems Physical Exam Vital Signs Vital Signs - First Documented 05/18/21 05/18/21 17:10 20:18 Temp 36.8 Pulse 82 Resp 20 B/P (MAP) 151/60 (90) Pulse Ox 100 O2 Delivery Room Air O2 Flow Rate 2.00 Capillary Refill : Less Than 3 Seconds General Appearance: no apparent distress, other (Chronically ill-appearing) HEENT: PERRL/EOMI, normal ENT inspection Neck: non-tender, supple Respiratory: chest non-tender, no respiratory distress, no accessory muscle use Cardiovascular: regular rate, rhythm, no JVD Gastrointestinal: soft, tenderness (Minimal tenderness lower abdomen, cutaneous fistula lower abdomen mucus purulent drainage, loop colostomy pink and productive), other Rectal: deferred Genital/Rectal: other (erythematous tissue around genitalia) Back: no CVA tenderness, no vertebral tenderness, other (Stage II sacral decub) Extremities: non-tender Neurologic/Psychiatric: alert, normal mood/affect Skin: normal color, warm/dry, other (Rash in groins) Lymphatic: no adenopathy Data Review Labs Laboratory Tests 05/18/21 17:50: White Blood Count 21.0H, Red Blood Count 3.42L, Hemoglobin 9.7L, Hematocrit 32L, Mean Corpuscular Volume 94, Mean Corpuscular Hemoglobin 28, Mean Corpuscular Hemoglobin Concent 30L, Red Cell Distribution Width 13.9, Platelet Count 632H, Mean Platelet Volume 8.4L, Immature Granulocyte % (Auto) 1, Neutrophils (%) (Auto) 59, Lymphocytes (%) (Auto) 33, Monocytes (%) (Auto) 6, Eosinophils (%) (Auto) 1, Basophils (%) (Auto) 1, Neutrophils # (Auto) 12.3H, Lymphocytes # (Auto) 6.9H, Monocytes # (Auto) 1.2H, Eosinophils # (Auto) 0.2, Basophils # (Auto) 0.1, Immature Granulocyte # (Auto) 0.2H, Neutrophils % (Manual) 56, Lymphocytes % (Manual) 34, Monocytes % (Manual) 7, Eosinophils % (Manual) 2, Band Neutrophils 1, Atypical Lymphocytes 1, Hypochromasia SLIGHT, Stomatocytes MODERATE, Sodium Level 133L, Potassium Level 3.9, Chloride Level 91L, Carbon Dioxide Level 31, Anion Gap 11, Blood Urea Nitrogen 9, Creatinine 0.71, Estimat Glomerular Filtration Rate > 60, BUN/Creatinine Ratio 13, Glucose Level 168H, Lactic Acid Level 1.14, Calcium Level 9.3, Corrected Calcium 9.5, Total Bilirubin 0.2, Aspartate Amino Transf (AST/SGOT) 14, Alanine Aminotransferase (ALT/SGPT) 6, Alkaline Phosphatase 65, C-Reactive Protein High Sensitivity 5.60H , Total Protein 7.7, Albumin 3.7, Lipase 30 05/18/21 18:10: Urine Color YELLOW, Urine Clarity TURBID, Urine pH 6.0, Urine Specific [place] 1.010L, Urine Protein 1+H, Urine Glucose (UA) 2+H, Urine Ketones NEGATIVE, Urine Nitrite NEGATIVE, Urine Bilirubin NEGATIVE, Urine Urobilinogen 0.2, Urine Leukocyte Esterase 1+H, Urine RBC (Auto) 1+H, Urine RBC 2-5H, Urine WBC TNTCH, Urine Crystals NONE, Urine Bacteria LARGEH, Urine Casts NONE, Urine Mucus NEGATIVE, Urine Culture Indicated YES 05/19/21 05:17: White Blood Count 16.5H, Red Blood Count 3.21L, Hemoglobin 9.0L, Hematocrit 30L, Mean Corpuscular Volume 94, Mean Corpuscular Hemoglobin 28, Mean Corpuscular Hemoglobin Concent 30L, Red Cell Distribution Width 14.1, Platelet Count 580H, Mean Platelet Volume 8.7L, Immature Granulocyte % (Auto) 1, Neutrophils (%) (Auto) 52, Lymphocytes (%) (Auto) 38, Monocytes (%) (Auto) 7, Eosinophils (%) (Auto) 2, Basophils (%) (Auto) 1, Neutrophils # (Auto) 8.6H, Lymphocytes # (Auto) 6.3H, Monocytes # (Auto) 1.1H, Eosinophils # (Auto) 0.3, Basophils # (Auto) 0.1, Immature Granulocyte # (Auto) 0.1, Sodium Level 136, Potassium Level 3.7, Chloride Level 97L, Carbon Dioxide Level 27, Anion Gap 12, Blood Urea Nitrogen 7, Creatinine 0.70, Estimat Glomerular Filtration Rate > 60, BUN/Creatinine Ratio 10, Glucose Level 136H, Calcium Level 8.9 Assessment/Plan Assessment/Plan Assessment/Plan Colovesicular colocutaneous fistula Pyuria Leukocytosis Status post transverse loop colostomy Sacral decubitus ulcer stage II Patient with diverting transverse loop colostomy that is functioning without difficulty. There is change of mucus purulent drainage from the fistula in the lower but I think this is secondary to the stool being diverted now. Patient can have diet as tolerates IV fluids On antibiotics. Pain control Turn frequently and sacral decub management. ROHAN MACHADO DO May 19, 2021 07:29
[2021-05-19] MEDS ORDERED: TR1C15 TP ×2 (11:49)
[2021-05-19] MEDS ORDERED: ASCO-262 PO (11:49)
[2021-05-19] MEDS ORDERED: LORA-404 PO (11:49)
[2021-05-19] MEDS ORDERED: METH114C4 TP (11:49)
[2021-05-19] MEDS ORDERED: [UNRECOGNIZED DRUG - CODE] TP ×2 (11:49→11:56)
[2021-05-19] MEDS ORDERED: KETO15CR2 TOP (11:49)
[2021-05-19] MEDS ORDERED: UBID30CA20 PO (11:49)
[2021-05-19] MEDS ORDERED: MICO85PO4 TP (11:49)
[2021-05-19] MEDS ORDERED: CHOL10007 PO (11:49)
[2021-05-19] MEDS ORDERED: ACET650T41 PO (11:49)
[2021-05-19] MEDS ORDERED: [UNRECOGNIZED DRUG - CODE] TP (11:49)
--- NOTE | 2021-05-19 12:25 | History & Physical-Hospitalist ---
History of Present Illness HPI/Chief Complaint Sarah Morales is a 81-year-old female with colocutaneous and colovesicular fistulas status post diverting colostomy who presented with elevated white blood cell count. She had labs done which showed leukocytosis. She reports crampy abdominal pain. She denies fevers and chills. She denies chest pain. She denies shortness of breath and cough. She has no other complaints or concerns. Source: patient Exam Limitations: no limitations Date Seen 05/19/21 Time Seen by a Provider: 09:30 Attending Physician Jacqueline Mcdaniel MD PCP Josh Navarro MD Referring Physician Date of Admission May 18, 2021 at 19:00 Home Medications & Allergies Home Medications Reviewed patient Home Medication Reconciliation performed by pharmacy medication reconciliations senior laboratory technician and/or nursing. Patients Allergies have been reviewed. Allergies Allergies Coded Allergies Fish Containing Products (Unverified Allergy, Unknown, 03/07/21) iodine (Unverified Allergy, Unknown, 03/07/21) peanut (Unverified Allergy, Unknown, 03/07/21) shrimp (Verified Allergy, Unknown, 04/30/19) Uncoded Allergies POPCORN ( Allergy, Unknown, 03/07/21) Past Bwlsany-Qbaxfz-Rmwjdc Hx Patient Social History Tobacco Use?: No Smoking Status: Former Smoker Substance use?: No Alcohol Use?: No Pt feels they are or have been: No Immunizations Up To Date Date of Influenza Vaccine: Aug 30, 2020 First/Initial COVID19 Vaccinat: 12/08/20 Second COVID19 Vaccination Eric: 12/29/20 Date of Pneumonia Vaccine: Aug 28, 2019 Seasonal Allergies Seasonal Allergies: No Current Status status: No Advance Directives: No Communicates: Verbally Primary Language: Chadian Is interpretation needed?: No Past Medical History Surgeries: CABG, Hysterectomy COPD Currently Using CPAP: No Currently Using BIPAP: No Coronary Artery Disease, Heart Attack, 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 Sexually Transmitted Disease: No HIV/AIDS: No Renal Failure Diverticulosis Arthritis Diabetes, Insulin dep Loss of Vision: Denies Sleep Difficulties, Anxiety, Depression Blood Disorders: No Adverse Reaction/Blood Tranf: No (N/A) Family Medical History Reviewed Nursing Family Hx Alzheimer's disease Cardiovascular disease 19 FATHER 19 MOTHER Diabetes mellitus 19 MOTHER No Pertinent Family Hx Review of Systems Constitutional: no symptoms reported EENTM: no symptoms reported Respiratory: no symptoms reported Cardiovascular: no symptoms reported Gastrointestinal: abdominal pain Genitourinary: no symptoms reported Musculoskeletal: no symptoms reported Skin: no symptoms reported Psychiatric/Neurological: No Symptoms Reported Physical Exam Physical Exam Vital Signs Vital Signs - First Documented 05/18/21 05/18/21 17:10 20:18 Temp 36.8 Pulse 82 Resp 20 B/P (MAP) 151/60 (90) Pulse Ox 100 O2 Delivery Room Air O2 Flow Rate 2.00 Capillary Refill : Less Than 3 Seconds Height, Weight, BMI Height: 0'60.00" Weight: 150lbs. 3.2oz. [id number]; 21.26 BMI Method:Stated General Appearance: No Apparent Distress, WD/WN HEENT: PERRL/EOMI, Pharynx Normal Neck: Normal Inspection, Supple Respiratory: Lungs Clear, Normal Breath Sounds, No Respiratory Distress Cardiovascular: Regular Rate, Rhythm, No Edema, No Murmur Gastrointestinal: Normal Bowel Sounds, Soft, Tenderness, Other (Colostomy in epigastric region, colocutaneous fistula lower abdomen) Extremity: Normal Inspection, Non Tender, Pedal Edema Neurologic/Psychiatric: Alert, Oriented x3, No Motor/Sensory Deficits, Normal Mood/Affect Skin: Normal Color, Warm/Dry Results Results/Procedures Labs Laboratory Tests 05/18/21 17:50 05/19/21 05:17 Patient resulted labs reviewed. Imaging: Reviewed Imaging Report Assessment/Plan Admission Diagnosis Urinary tract infection Admission Status: Inpatient Order (span 2 midnights) Reason for Inpatient Admission: UTI requiring IV antibiotics Assessment and Plan UTI Colovesicular fistula Colocutaneous fistula Status post diverting colostomy UA consistent with UTI Urine culture pending Started on Zosyn Surgery consulted, appreciate assistance HTN Hypothyroidism HLD Depression Anxiety Continue home meds DVT prophylaxis: Lovenox Diagnosis/Problems Diagnosis/Problems (1) Complicated UTI (urinary tract infection) Status: Acute (2) Pateros-vesical fistula Status: Acute JACQUELINE MCDANIEL MD May 19, 2021 12:25
[2021-05-19] MEDS ORDERED: diphenhydrAMINE 25 MG TAB (BENADRYL) PO PRN (12:45)
[2021-05-19] MEDS ORDERED: MELATONIN 3 MG TABLET PO PRN (12:45)
[2021-05-19] MEDS ORDERED: ANTACID SUSP 30 ML UDC (MYLANTA) PO PRN (12:45)
[2021-05-19] MEDS ORDERED: ONDANSETRON 4 MG (ZOFRAN) ORAL DISSOLVE TAB PO PRN (12:45)
[2021-05-19] MEDS ORDERED: ACETAMINOPHEN 325 MG TABLET PO PRN (12:45)
[2021-05-19] MEDS ORDERED: polyethylene glycoL POWDER 17 GM (MIRALAX) PACK PO PRN (12:45)
[2021-05-19] MEDS ORDERED: MILK OF MAGNESIA 400 MG/5 ML 30 ML UDC PO PRN (12:45)
[2021-05-19] MEDS ORDERED: ONDANSETRON 4 MG/2 ML (SDV) Z0FRAN IV PRN (12:45)
[2021-05-19] MEDS: ENOXAPARIN 40 MG/0.4 ML (LOVENOX) SYR SC SCH (14:11)
--- NOTE | 2021-05-19 14:26 | Occupational Therapy Eval ---
OT Evaluation-General/PLF Medical Diagnosis Admission Date May 18, 2021 at 19:00 Medical Diagnosis: colon fistulas s/p diverting colostomy Onset Date: May 18, 2021 Therapy Diagnosis Therapy Diagnosis: Decreased ADL status Height/Weight Height (Feet): 0 Height (Inches): 60.00 Weight (Pounds): 150 Weight (Ounces): 3.2 Precautions Precautions/Isolations: Fall Prevention, Standard Precautions Referral Physician: Darleen Referral Reason: Activity Tolerance, Self Care, Evaluation/Treatment, Strengthening/ROM Medical History Pertinent Medical History: CABG, CAD, DM, HTN, NV, Renal Insufficiency Current History admits with elevated WBC with colon fistulas/ abdominal pain s/p diverting colostomy and stage II sacral decubitus ulcer Reviewed History: Yes Social History Home: Long-Term ADL-Prior Level of Function SCALE: Activities may be completed with or without assistive devices. 3-Haeemidzwg-iophfze completes the activity by him/herself with no assistance from a helper. 5-Set-up or Clean-up Assistance-helper sets up or cleans up; patient completes activity. [place] assists only prior to or following the activity. 4-Supervision or Touching Assistance-helper provides verbal cues and/or touchi ng/steadying and/or contact guard assistance as patient completes activity. Assistance may be provided throughout the activity or intermittently. 3-Partial/Moderate Assistance-helper does LESS THAN HALF the effort. [place] lifts, holds or supports trunk or limbs, but provides less than half the effort. 2-Substantial/Maximal Assistance-helper does MORE THAN HALF the effort. [place] lifts or holds trunk or limbs and provides more than half the effort. 8-Dzlayrajk-lzihkh does ALL the effort. Patient does none of the effort to complete the activity. Or, the assistance of 2 or more helpers is required for the patient to complete the activity. If activity was not attempted, code reason: 7-Patient Refused. 9-Not Applicable-not attempted and the patient did not perform the activity before the current illness, exacerbation or injury. 10-Not Attempted due to Environmental Limitations-(lack of equipment, weather restraints, etc.). 88-Not Attempted due to Medical Conditions or Safety Concerns. ADL PLOF Comments Required assist with bathing, sock donning, LB dressing. Pt able to take self to/from bathroom with walker and states completes UB IND. Self Care: Needed Some Help Functional Cognition: Independent DME/Equipment Comments walker OT Current Status Subjective Pt AxO, on commode with PT present. Pt agrees to tx. Per PT, urinated EOB/ on floor. Bedding changed and OT takes over after stance. Pt states pain in abdomen, also has raw/ reddened pubic region. For this reason, pure wick not placed post task and additional barrier ointment placed on gonsalo region. Mental Status/Objective Patient Orientation: Person, Place, Situation Attachments: Oxygen Current Glasses/Contacts: No Hearing Aids: No Dentures/Partials: Yes Hand Dominance: Right Upper Extremity ROM WFL BUE Upper Extremity Coordination Decreased minimally Upper Extremity Strength Decreased BUE Edema: none noted. ADL-Treatment Eating (QC): 5 (s/u opening containers (open of small-lipped container due to long finger nails)) Oral Hygiene (QC): 6 (per clinical judgemnt) Toileting Hygiene (QC): 2 (completed for pt upon stance) Other Treatments Pt introduced to OT. Pt sit to stand with PT assist (CGA per clinical judgment). Pt ambulates to bed after bedding change with SBA. Bed mob (sit to supine) with mod A for BLE d/t core weakness. Cream placed on gonsalo region with max A. Pt requests ice cream, requires s/u. Pt ROM/ MMT decreased. Pt is agreeable to short term OT for conditioning/ working towards increasing ADL status. Pt states will d/c tomorrow. Pt left in bed with all needs met, call light in reach, blankets donned. Education OT Patient Education: Correct positioning, Purpose of tx/functional activities, Safety issues Teaching Recipient: Patient Teaching Methods: Demonstration, Discussion Response to Teaching: Verbalize Understanding, Return Demonstration OT [facility] Goals M[facility] Goals Time Frame: May 26, 2021 Eating (QC): 6 Oral Hygiene (QC): 6 Toileting Hygiene (QC): 6 Shower/Bathe Self (QC): 3 Upper Body Dressing (QC): 6 Lower Body Dressing (QC): 3 On/Off Footwear (QC): 2 Additional Goals: 1-Demonstrate ADL Tasks, 2-Verbalize Understanding, 3- ImproveStrength/Jennifer 1=Demonstrate adherence to instructed precautions during ADL tasks. 2=Patient will verbalize/demonstrate understanding of assistive devices/modifications for ADL. 3=Patient will improve strength/tolerance for activity to enable patient to perform ADL's. OT Education/Plan Problem List/Assessment Assessment: Decreased Activ Tolerance, Decreased UE Strength, Dependent Transfers, Impaired Bed Mobility, Impaired Coordination, Impaired I ADL's, Impaired Self-Care Skills Discharge Recommendations Plan/Recommendations: Continue POC Therapy Discharge Recommendati: 24 Hour Supervision, Post Acute OT Treatment Plan/Plan of Care Treatment,Training & Education: Yes Patient would benefit from OT for education, treatment and training to promote independence in ADL's, mobility, safety and/or upper extremity function for ADL's. Plan of Care: ADL Retraining, Functional Mobility, UE Funct Exercise/Act Treatment Duration: May 26, 2021 Frequency: 5 times per week Estimated Hrs Per Day: .25 hour per day Agreement: Yes Rehab Potential: Fair Time/GCodes Start Time: 13:42 Stop Time: 13:58 Total Time Billed (hr/min): 16 Billed Treatment Time ALLIE Mary (16) VIDHYA MURILLO OTR May 19, 2021 14:26
--- NOTE | 2021-05-19 14:31 | Physical Therapy Evaluation ---
PT Evaluation-General Medical Diagnosis Admission Date May 18, 2021 at 19:00 Medical Diagnosis: UTI/bowel cramping Onset Date: May 18, 2021 Therapy Diagnosis Therapy Diagnosis: debility/weakness Height/Weight Height (Feet): 0 Height (Inches): 60.00 Weight (Pounds): 150 Weight (Ounces): 3.2 Precautions Precautions/Isolations: Fall Prevention, Standard Precautions Referral Physician: Darleen Reason for Referral: Evaluation/Treatment Medical History Pertinent Medical History: CABG, CAD, DM, HTN, PR, Renal Insufficiency Current History ER from [facility] secondary to abdominal pain Reviewed History: Yes Social History Home: Group Home Prior Prior Level of Function SCALE: Activities may be completed with or without assistive devices. 2-Jocdcitnqf-tufpfcs completes the activity by him/herself with no assistance f rom a helper. 5-Set-up or Clean-up Assistance-helper sets up or cleans up; patient completes activity. [place] assists only prior to or following the activity. 4-Supervision or Touching Assistance-helper provides verbal cues and/or touching/steadying and/or contact guard assistance as patient completes activity. Assistance may be provided throughout the activity or intermittently. 3-Partial/Moderate Assistance-helper does LESS THAN HALF the effort. [place] lifts, holds or supports trunk or limbs, but provides less than half the effort. 2-Substantial/Maximal Assistance-helper does MORE THAN HALF the effort. [place] lifts or holds trunk or limbs and provides more than half the effort. 9-Cocnkrqez-hmtvgd does ALL the effort. Patient does none of the effort to complete the activity. Or, the assistance of 2 or more helpers is required for the patient to complete the activity. If activity was not attempted, code reason: 7-Patient Refused. 9-Not Applicable-not attempted and the patient did not perform the activity before the current illness, exacerbation or injury. 10-Not Attempted due to Environmental Limitations-(lack of equipment, weather restraints, etc.). 88-Not Attempted due to Medical Conditions or Safety Concerns. Bed Mobility: 4 Transfers (B,C,W/C): 4 Gait: 4 Stairs: 9 Indoor Mobility (Ambulation): Needed Some Help Stairs: Not Applicalbe Prior Devices Use: Walker PT Evaluation-Current Subjective Patient agrees to PT. Objective Patient Orientation: Normal For Age Attachments: Oxygen ROM/Strength ROM Lower Extremities bilateral LE WFL Strength Lower Extremities 3/5 grossly bilateral LE Integumentary/Posture Bladder Incontinence: Yes Posture WFL Neuromuscular (Tone, Coordination, Reflexes) grossly intact Sensory Vision: Functional Hearing: Functional Transfers Roll Left to Right (QC): 4 Sit to Lying (QC): 4 Lying to Sitting/Side of Bed(Q: 4 Sit to Stand (QC): 4 Chair/Edv-zw-Kazdy Xfer(QC): 4 Toilet Transfer (QC): 4 Gait Does the Patient Walk?: Yes Mode of Locomotion: Walk Anticipated Mode of Locomotion: Walk Walk 10 feet (QC): 4 Walk 50 ft with 2 Turns(QC): 4 Walk 150 ft (QC): 88 Distance: 50' in room Gait Assistive Device: FWW Balance Sitting Static: Normal Sitting Dynamic: Normal Standing Static: Normal Standing Dynamic: Normal Assessment/Needs 81 y.o. female will be seen short term by skilled PT to address functional strength and mobility to improve current LOF. Patient will return to [facility] per her report. Rehab Potential: Fair PT Short Term Goals Short Term Goals Time Frame: May 26, 2021 Roll Left & Right: 5 Sit to lyin Lying to sitting on side of be: 5 Sit to stand: 4 Chair/mkh-nn-fhlvw transfer: 4 Toilet transfer: 4 Walk 10 feet: 4 Walk 50 feet with two turns: 4 PT Plan Problem List Problem List: Activity Tolerance, Functional Strength, Gait, Transfer Treatment/Plan Treatment Plan: Continue Plan of Care Treatment Plan: Bed Mobility, Education, Functional Activity Jennifer, Functional Strength, Gait, Safety, Therapeutic Exercise, Transfers Treatment Duration: May 26, 2021 Frequency: 6 times per week Estimated Hrs Per Day: .25 hour per day Patient and/or Family Agrees t: Yes Time/GCodes Time In: 1331 Time Out: 1343 Total Billed Treatment Time: 12 Total Billed Treatment 1 visit EVMod 13 min HAMMAD BROWN PT May 19, 2021 14:31
[2021-05-19] MEDS ORDERED: traZODone 100 MG (DESYREL) TAB PO SCH (18:00)
[2021-05-19] MEDS ORDERED: SERTRALINE 50 MG (ZOLOFT) TABLET PO SCH (18:00)
[2021-05-19] MEDS ORDERED: SENNA W/DOCUSATE (SENOKOT S) TABLET PO SCH (18:00)
[2021-05-19] MEDS ORDERED: GABAPENTIN 100 MG (NEURONTIN) CAP PO SCH (18:00)
[2021-05-19] MEDS ORDERED: FLUCONAZOLE 100 MG/50 ML IVPB IV SCH (20:00)
[2021-05-19] MEDS ORDERED: ESTRADIOL VAGINAL CREAM 42.5 GM (ESTRACE) VG SCH (21:00)
[2021-05-19] MEDS: SODIUM CHLORIDE 1 GM TABLET PO SCH (21:22)
[2021-05-19] MEDS: BISACODYL 5 MG (DULCOLAX) TABLET PO SCH (21:22)
[2021-05-19] MEDS: KETOCONAZOLE 2% CREAM 15 GM (NIZORAL) TOP SCH (21:27)
[2021-05-19] MEDS: TRIAMCINOLONE 0.1% CR (KENALOG) 15 GM TUBE TP SCH (21:29)
[2021-05-20] MEDS: PIPERACILLIN/TAZO 4.5 GM/NS 100 ML IV SCH ×4 (01:09→09:24)
[2021-05-20 04:09] VITALS: BP 144/65
[2021-05-20] MEDS ORDERED: LEVOTHYROXINE 25 MCG (LEVOTHROID) TAB PO SCH (06:30)
[2021-05-20] MEDS: CATHETER FLUSH 10 ML SYR IV SCH (06:39)
[2021-05-20 07:50] VITALS: BP 169/71
[2021-05-20 07:59] LABS: BASOPHILS # (AUTO) 0.1 10^3/uL (0.0-0.1); BASOPHILS % (AUTO) 1 % (0-10); EOSINOPHILS # (AUTO) 0.2 10^3/uL (0.0-0.3); EOSINOPHILS % (AUTO) 1 % (0-10); HEMATOCRIT 30 % (35-52); HEMOGLOBIN 9.1 g/dL (11.5-16.0); LYMPHOCYTES # (AUTO) 5.1 10^3/uL (1.0-4.0); LYMPHOCYTES % (AUTO) 32 % (12-44); MEAN CORPUSCULAR HEMOGLOBIN 29 pg (25-34); MEAN CORPUSCULAR HGB CONC 31 g/dL (32-36); MEAN CORPUSCULAR VOLUME 93 fL (80-99); MEAN PLATELET VOLUME 8.4 fL (9.0-12.2); MONOCYTES % (AUTO) 6 % (0-12); NEUTROPHILS # (AUTO) 9.5 10^3/uL (1.8-7.8); NEUTROPHILS % (AUTO) 59 % (42-75); PLATELET COUNT 571 10^3/uL (130-400)
[2021-05-20 08:14] LABS: CHLORIDE 99 MMOL/L (98-107); POTASSIUM 3.8 MMOL/L (3.6-5.0); SODIUM 140 MMOL/L (135-145)
[2021-05-20 08:16] LABS: GLUCOSE 166 MG/DL (70-105)
[2021-05-20 08:17] LABS: CARBON DIOXIDE 29 MMOL/L (21-32)
[2021-05-20 08:20] LABS: CREATININE SERUM 0.75 MG/DL (0.60-1.30); GFR ESTIMATED > 60
[2021-05-20 08:21] LABS: BUN/CREATININE RATIO 11
--- NOTE | 2021-05-20 08:44 | Physical Therapy Daily Note ---
PT Daily Note-Current Subjective Patient agrees to PT. Appearance bed saturated with urine with purewick in place/patient genitals are extremely red Mental Status Patient Orientation: Normal For Age Attachments: Oxygen Transfers SCALE: Activities may be completed with or without assistive devices. 6-Shzsewnmcw-arakgwe completes the activity by him/herself with no assistance from a helper. 5-Set-up or Clean-up Assistance-helper sets up or cleans up; patient completes activity. [place] assists only prior to or following the activity. 4-Supervision or Touching Assistance-helper provides verbal cues and/or touching /steadying and/or contact guard assistance as patient completes activity. Assistance may be provided throughout the activity or intermittently. 3-Partial/Moderate Assistance-helper does LESS THAN HALF the effort. [place] lifts, holds or supports trunk or limbs, but provides less than half the effort. 2-Substantial/Maximal Assistance-helper does MORE THAN HALF the effort. [place] lifts or holds trunk or limbs and provides more than half the effort. 9-Clealbjiu-hgnqbn does ALL the effort. Patient does none of the effort to complete the activity. Or, the assistance of 2 or more helpers is required for the patient to complete the activity. If activity was not attempted, code reason: 7-Patient Refused. 9-Not Applicable-not attempted and the patient did not perform the activity before the current illness, exacerbation or injury. 10-Not Attempted due to Environmental Limitations-(lack of equipment, weather restraints, etc.). 88-Not Attempted due to Medical Conditions or Safety Concerns. Lying to Sitting/Side of Bed(Q: 6 Sit to Stand (QC): 4 Chair/Kcw-ww-Bokpd Xfer(QC): 4 Toilet Transfer (QC): 4 assisted with cleansing after toileting Exercises Seated Therapy Exercises: Ankle pumps, Long arc quads Seated Reps: 12 Assessment Patient up in recliner with warm blankets for comfort. [place] in to address periarea cleansing. PT Short Term Goals Short Term Goals Time Frame: May 26, 2021 Roll Left & Right: 5 Sit to lyin Lying to sitting on side of be: 5 Sit to stand: 4 Chair/hdm-rb-xuawi transfer: 4 Toilet transfer: 4 Walk 10 feet: 4 Walk 50 feet with two turns: 4 PT Plan Treatment/Plan Treatment Plan: Continue Plan of Care Treatment Plan: Bed Mobility, Education, Functional Activity Jennifer, Functional Strength, Gait, Safety, Therapeutic Exercise, Transfers Treatment Duration: May 26, 2021 Frequency: 6 times per week Estimated Hrs Per Day: .25 hour per day Patient and/or Family Agrees t: Yes Time/GCodes Time In: 821 Time Out: 832 Total Billed Treatment Time: 11 Total Billed Treatment 1 visit FA 11 min HAMMAD BROWN PT May 20, 2021 08:44
[2021-05-20] MEDS ORDERED: NON-FORMULARY MEDICATION 1 EA EA (Oxybutynin Chloride (Oxybutynin Chloride ER) 10 MG) PO SCH (09:00)
[2021-05-20] MEDS ORDERED: FUROSEMIDE 40 MG (LASIX) TAB PO SCH (09:00)
[2021-05-20] MEDS ORDERED: LORazepam 0.5 MG (ATIVAN) TABLET PO SCH (09:00)
[2021-05-20] MEDS ORDERED: OXYBUTYNIN (DITROPAN) 5 MG TAB PO SCH (09:00)
[2021-05-20] MEDS ORDERED: FLUTICASONE NASAL SPRAY (FLONASE) 16 GM BTL NS SCH (09:00)
[2021-05-20] MEDS: SODIUM CHLORIDE 1 GM TABLET PO SCH (09:24)
[2021-05-20] MEDS: BISACODYL 5 MG (DULCOLAX) TABLET PO SCH (09:25)
[2021-05-20] MEDS: KETOCONAZOLE 2% CREAM 15 GM (NIZORAL) TOP SCH (09:25)
[2021-05-20] MEDS: TRIAMCINOLONE 0.1% CR (KENALOG) 15 GM TUBE TP SCH (09:25)
[2021-05-20] MEDS: ENOXAPARIN 40 MG/0.4 ML (LOVENOX) SYR SC SCH (12:27)
--- NOTE | 2021-05-20 12:27 | Progress Note - Surgery ---
Subjective Time Seen by a Provider: 11:21 Subjective/Events-last exam Pt seen and examined, states less pain than yesterday and no new complaints. Able to eat a little. Review of Systems General: Fatigue, Malaise Pulmonary: No Dyspnea, No Cough Cardiovascular: No: Chest Pain, Palpitations Gastrointestinal: Abdominal Pain (chronic); No: Nausea, Vomiting Focused Exam Lactate Level 05/18/21 17:50: Lactic Acid Level 1.14 Objective Exam Vital Signs Date Time Temp Pulse Resp B/P (MAP) Pulse Ox O2 Delivery O2 Flow Rate FiO2 05/20/21 08:00 99 Nasal Cannula 2.00 05/20/21 07:50 37.5 73 18 169/71 (103) 99 Nasal Cannula 2.00 05/20/21 04:09 37.5 86 17 144/65 (91) 99 Nasal Cannula 2.00 05/19/21 23:42 36.7 73 18 128/66 (86) 99 Nasal Cannula 2.00 05/19/21 23:42 99 Nasal Cannula 2.00 05/19/21 21:00 Nasal Cannula 2.00 05/19/21 20:14 36.9 78 18 160/67 (98) 100 Nasal Cannula 2.00 05/19/21 15:21 36.2 81 18 172/72 (105) 100 Nasal Cannula 2.00 I & O 05/20/21 07:00 Intake Total 1620 ml Output Total 895 ml Balance 725 ml Capillary Refill : Less Than 3 Seconds General Appearance: No Apparent Distress, Chronically ill HEENT: PERRL/EOMI Respiratory: Lungs Clear, Normal Breath Sounds, No Respiratory Distress Cardiovascular: Regular Rate, Rhythm, No Murmur Gastrointestinal: soft, tenderness (Minimal tenderness lower abdomen, cutaneous fistula lower abdomen mucus purulent drainage, loop colostomy pink and productive), other (loop colostomy good function, bag over colocutaneous fistula) Extremity: Pedal Edema Neurologic/Psychiatric: Alert, Oriented x3 Results Lab Laboratory Tests 05/20/21 07:51: White Blood Count 16.0H, Red Blood Count 3.18L, Hemoglobin 9.1L, Hematocrit 30L, Mean Corpuscular Volume 93, Mean Corpuscular Hemoglobin 29, Mean Corpuscular Hemoglobin Concent 31L, Red Cell Distribution Width 14.3, Platelet Count 571H, Mean Platelet Volume 8.4L, Immature Granulocyte % (Auto) 1, Neutrophils (%) (Auto) 59, Lymphocytes (%) (Auto) 32, Monocytes (%) (Auto) 6, Eosinophils (%) (Auto) 1, Basophils (%) (Auto) 1, Neutrophils # (Auto) 9.5H, Lymphocytes # (Auto) 5.1H, Monocytes # (Auto) 1.0, Eosinophils # (Auto) 0.2, Basophils # (Auto) 0.1, Immature Granulocyte # (Auto) 0.1, Sodium Level 140, Potassium Level 3.8, Chloride Level 99, Carbon Dioxide Level 29, Anion Gap 12, Blood Urea Nitrogen 8, Creatinine 0.75, Estimat Glomerular Filtration Rate > 60, BUN/Creatinine Ratio 11, Glucose Level 166H, Calcium Level 9.0, Procalcitonin 0.02 Microbiology 05/18/21 Blood Culture - Preliminary, Resulted No growth 05/18/21 Urine Culture - Final, Complete YEAST Assessment/Plan Assessment/Plan Assessment/Plan Colovesicular colocutaneous fistula Pyuria - Yeast was cultured Leukocytosis - improving Status post transverse loop colostomy Sacral decubitus ulcer stage II Patient with diverting transverse loop colostomy that is functioning without difficulty. The fistula in the lower abdomen continues to drain, no erythema surrounding and does not look like it is gettting worse; secondary to the stool being diverted now. Diet as tolerated, IV fluids, switch ABX to treat yeast, pain control. Turn frequently and sacral decub management. YARON NUNN DO May 20, 2021 12:27
[2021-05-20] MEDS ORDERED: FLUC200T5 PO (12:34)
--- NOTE | 2021-05-20 12:37 | Discharge Summary ---
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 She was nonseptic. She did not have any fevers. She had some suprapubic tenderness. A UA was indicative of urinary tract infection. She was started on IV antibiotics. The urine culture revealed yeast. Her antibiotics were discontinued and she was given a course of Diflucan. She was discharged back to [facility] and rehab for ongoing therapies. She was discharged in stable condition. Labs and Pending Lab Test: Laboratory Tests 05/20/21 07:51: White Blood Count 16.0H, Red Blood Count 3.18L, Hemoglobin 9.1L, Hematocrit 30L, Mean Corpuscular Volume 93, Mean Corpuscular Hemoglobin 29, Mean Corpuscular Hemoglobin Concent 31L, Red Cell Distribution Width 14.3, Platelet Count 571H, Mean Platelet Volume 8.4L, Immature Granulocyte % (Auto) 1, Neutrophils (%) (Auto) 59, Lymphocytes (%) (Auto) 32, Monocytes (%) (Auto) 6, Eosinophils (%) (Auto) 1, Basophils (%) (Auto) 1, Neutrophils # (Auto) 9.5H, Lymphocytes # (Auto) 5.1H, Monocytes # (Auto) 1.0, Eosinophils # (Auto) 0.2, Basophils # (Auto) 0.1, Immature Granulocyte # (Auto) 0.1, Sodium Level 140, Potassium Level 3.8, Chloride Level 99, Carbon Dioxide Level 29, Anion Gap 12, Blood Urea Nitrogen 8, Creatinine 0.75, Estimat Glomerular Filtration Rate > 60, BUN/Creatinine Ratio 11, Glucose Level 166H, Calcium Level 9.0, Procalcitonin 0.02 Microbiology 05/18/21 Blood Culture - Preliminary, Resulted No growth 05/18/21 Urine Culture - Final, Complete YEAST Home Meds Active Reported Remedy Antifungal (Miconazole Nitrate) 118 Ml Cream.ml. 1 Applic TP Q12H PRN APPLY TO GROIN Triamcinolone Acetonide 0.1% Cream (Triamcinolone Acet) 15 Gm Cr 1 Applic TP DAILY PRN APPLY TO BREAST/GROIN Remedy Antifungal (Miconazole Nitrate) 85 Gm Powder 1 Applic TP DAILY PRN APPLY TO MARLENE AREA AND UNDER BOTH BREASTS Muscle Rub Ultra Str Cream (Methyl Salicylate/Menth/Camph) 114 Gm Cream..g. 1 Applic TP Q6H PRN APPLY TO LOWER BACK Triamcinolone Acetonide 0.1% Cream (Triamcinolone Acet) 15 Gm Cr 1 Applic TP BID APPLY TO ABDOMINAL FOLD Remedy Nutrashield (Dimethicone) 118 Ml Cream.ml. 1 Applic TP BID APPLY TO FACE Remedy Antifungal (Miconazole Nitrate) 118 Ml Cream.ml. 1 Applic TP BID APPLY TO GROIN FOR 14 DAYS STARTING 05-17-2021 Ketoconazole 15 Gm Cream..g. 1 Applic TOP BID APPLY UNDER BREAST AND GROIN Vitamin C (Ascorbate Calcium) 500 Mg Tablet 500 Mg PO DAILY Acetaminophen 8 Hour (Acetaminophen) 650 Mg Tablet.er 650 Mg PO Q8H PRN Vitamin D3 (Cholecalciferol (Vitamin D3)) 25 Mcg Capsule 50 Mcg PO DAILY Ativan (Lorazepam) 0.5 Mg Tablet 0.[address] UNDER TONGUE AND ADD SMALL AMOUNT OF WATER TO DISOLVE TABLET Co Q-10 (Ubidecarenone) 30 Mg Capsule 30 Mg PO DAILY Sodium Chloride 1 Gm Tab 1 Gm PO BID Oxybutynin Chloride ER (Oxybutynin Chloride) 10 Mg Tab.er.24 10 Mg PO DAILY Niferex Tablet (Iron Ag,Ps/C/Fa6/B12/Zn/SA/Sto) 1 Each Tablet 1 Each PO DAILY Metoprolol Succinate 25 Mg Tab.er.24h 25 Mg PO DAILY HOLD IF SBP <100 OR PULSE <600 Lactobacillus 1 Million Cfu Tb (L. Acidophilus/L.bulgaricus) 1 Each Tablet 1 Each PO 1800 Jardiance (Empagliflozin) 25 Mg Tablet 25 Mg PO DAILY Hydrocodone-Acetamin 5-325 mg (Hydrocodone/Acetaminophen) 1 Each Tablet 1-2 Each PO Q4H PRN Polyethylene Glycol 3350 17 Gm Powd.pack 17 Gm PO Q12H PRN Estrace Cream (Estradiol) 42.5 Gm Cream.appl 1 Gm VG HS INSERT 1 GRAM VAGINALLY AT BEDTIME EVERY SATURDAY, SATURDAY, FRANKLIN RELATED TO ACUTE VAGINITIS Cyclobenzaprine HCl 5 Mg Tablet 5 Mg PO Q8H PRN B-12 (Cyanocobalamin (Vitamin B-12)) 500 Mcg Tablet 500 Mcg PO Q48H Atorvastatin Calcium 20 Mg Tablet 20 Mg PO 1800 Aspercreme 10% Cream (Trolamine Salicylate/Aloe Vera) 35.4 Gm Cream..g. 1 Applic TP Q8H PRN APPLY TO LOWER BACK Proair Hfa (Albuterol Sulfate) 1 Puff Puff 2 Puff IH Q4H PRN Furosemide 40 Mg Tablet 40 Mg PO DAILY Bisacodyl 5 Mg Tablet.dr 10 Mg PO BID Zyrtec (Cetirizine HCl) 10 Mg Tablet 5 Mg PO 1800 TAKES 1/2 (10MG) TABLET Zofran (Ondansetron HCl) 4 Mg Tab 4 Mg PO Q8H PRN Biofreeze (Menthol) 118 Ml Gel..ml. 1 Applic TP Q6H PRN APPLY TO LOWER BACK Trazodone HCl 100 Mg Tablet 100 Mg PO 1800 Synthroid (Levothyroxine Sodium) 25 Mcg Tablet 25 Mcg PO DAILY Sertraline HCl 50 Mg Tablet 50 Mg PO 1800 Senna S Tablet (Sennosides/Docusate Sodium) 1 Each Tablet 3 Ea PO 1800 Milk of Magnesia (Magnesium Hydroxide) 400 Mg/5 Ml Oral.susp 30 Ml PO DAILY PRN Magox 400 (Magnesium Oxide) 400 Mg Tablet 400 Mg PO DAILY Gabapentin 100 Mg Capsule 200 Mg PO 1800 TAKES 2 (100MG) CAPSULES Fluticasone Propionate 16 Gm [place].susp 1 [place] NS DAILY Instructions to Patient/Family Assessment/Instructions Take medications as prescribed. Participate with therapies. Follow up with your doctor. Return with worsening symptoms. Follow Up Appt.: next half-way rounds Skilled NF Admit to: [facility] Certification (SNF) I certify that SNF services are required to be given on an inpatient basis because of the above named patient's need for custodial care on a continuing basis for the conditions(s) for which he/she was receiving inpatient hospital services prior to his/her transfer to the SNF. [facility] Facility Order: Nursing Services, [place]-Evaluate & Treat, Physical Therapy-Evaluate & Treat, Wound Care-Eval/Treat Oxygen Delivery Method: Nasal Cannula Discharge Diet: No Restrictions Daily Activity as Tolerated: Yes Resuscitation Status: Full Code Jacqueline Mcdaniel May 20, 2021 12:26 Discharge Physical Exam General: Alert, Oriented X3, Cooperative, No Acute Distress HEENT: Atraumatic, EOMI, Mucous Memb Moist/[place] Lungs: Clear to Auscultation, Normal Air Movement Heart: Regular Rate, Normal S1, Normal S2, No Murmurs Abdomen: Normal Bowel Sounds, Soft, Other (colostomy, colocutaneous fistula) Extremities: No Edema, No Tenderness/Swelling Skin: No Rashes, No Significant Lesion Neuro: Normal Speech, Normal Tone Psych/Mental Status: Mental Status NL, Mood NL JACQUELINE MCDANIEL MD May 20, 2021 12:32
== END 2021-05-20 14:15 | DRG 758 ==
LOC: EDUNIT# 16:35 → ER 16:36 → 4TH 19:00
PROVIDERS: ADMIT Internal Medicine; ATTEND Internal Medicine
DX: B37.49 Other urogenital candidiasis (principal); N32.1 Vesicointestinal fistula; K63.2 Fistula of intestine; B37.2 Candidiasis of skin and nail; J44.9 Chronic obstructive pulmonary disease, unspecified; Z93.3 Colostomy status; L89.152 Pressure ulcer of sacral region, stage 2; I25.10 Atherosclerotic heart disease of native coronary artery without angina pectoris; I10 Essential (primary) hypertension; K57.90 Diverticulosis of intestine, part unspecified, without perforation or abscess without bleeding; E78.5 Hyperlipidemia, unspecified; M19.91 Primary osteoarthritis, unspecified site; E11.9 Type 2 diabetes mellitus without complications; F41.9 Anxiety disorder, unspecified; F32.9 Major depressive disorder, single episode, unspecified; E03.9 Hypothyroidism, unspecified; Z87.891 Personal history of nicotine dependence; Z95.1 Presence of aortocoronary bypass graft; I25.2 Old myocardial infarction
CPT/HCPCS: 36415; 51702; 71045; 80048; 80053; 81000; 83605; 83690; 84145; 85007; 85025; 85027; 86141; 87040; 87088; 94760

== ENCOUNTER → 2021-05-23 | Outpatient (CLI) | payer MEDICARE, MEDICAID ==
[~2021-05-23] MED LIST changes: +ACET650T41 PO; +ASCO-262 PO; +CATHETER FLUSH 10 ML SYR IV PRN; +CHOL10007 PO; +FLUC200T5 PO; +HOLD METFORMIN - RECEIVED CONTRAST 20 ML VIAL IV SCH; +IOHEXOL 350 MG/ML 100 ML (OMNIPAQUE 350) VIAL IV ONE; +KETO15CR2 TOP; +METH114C4 TP; +MICO85PO4 TP; +NS 100 ML (IVPB) BAG IV ONE; +TR1C15 TP; +UBID30CA20 PO; +[UNRECOGNIZED DRUG - CODE] TP; +[UNRECOGNIZED DRUG - CODE] TP
--- NOTE | 2021-05-23 09:02 | Diagnostic Imaging Report ---
EXAMINATION: CT ABDOMEN/PELVIS W. TECHNIQUE: Multiple contiguous axial images were obtained through the abdomen and pelvis after administration of intravenous contrast. All CT scans use one or more of the following dose optimizing techniques: automated exposure control, MA and/or KvP adjustment based on patient size and exam type or iterative reconstruction. INDICATION: Abdominal fistula. COMPARISON: 05/06/2021. FINDINGS: Lower chest: Stable asymmetric elevation of the left hemidiaphragm. Visualized aspects of the right lung base are clear. Peritoneum: No free intraperitoneal air has developed. Additionally, there is no free fluid. The left lower quadrant collections are detailed below in the GI section. Liver and biliary system: The liver is normal. The gallbladder is normal. No biliary duct dilation. Spleen and Pancreas: The apex of the spleen is not included in the [id number]-[id number] but the remainder of the spleen is normal. The pancreas enhances normally without mass lesion or peripancreatic inflammatory changes. Adrenals: Normal. tract: The kidneys enhance normally without mass lesion or obstruction. Delayed phase images show filling of the urinary bladder. There is mass effect and indentation of the left aspect of the bladder dome associated with the abscess from the sigmoid colon; however, there is no fistula communication at this time between the bladder and abscess. GI tract: The fundus of the stomach is not included in the [id number]. Remainder of the stomach is partially filled with fluid and has no abnormality. In the midline of the upper abdomen, there appears to be a loop colostomy associated with the transverse colon. There remains abnormal thickening in the sigmoid colon with air and fluid-filled collection along the medial margin of the sigmoid colon. This collection has rim enhancement and measures 4.2 x 3.6 x 1.8 cm on today's examination. On the 05/06/2021 examination, the collection was larger measuring 4.0 x 3.8 x 3.4 cm. The fistula tract to the left lower quadrant skin persists and has a small amount of air within it. Vasculature and Lymph nodes: Normal caliber aorta. No abdominal or pelvic lymphadenopathy. Musculoskeletal: No concerning osseous lesion. IMPRESSION: 1. Improving but persistent left lower quadrant abscess with fistula tract to the skin surface in the left lower quadrant abdominal wall. This abscess is likely derived from a perforation in the sigmoid colon. 2. The abscess and associated inflammatory change indent the dome of the urinary bladder but there is no fistula between the abscess and the urinary bladder at this time. Dictated by: Dictated on workstation # [id number]
== END ==
LOC: RAD 08:15
PROVIDERS: ATTEND Nurse Practitioner Family
DX: K63.2 Fistula of intestine (principal)
CPT/HCPCS: 74177

== ENCOUNTER → 2021-06-19 | Outpatient (CLI) | payer MEDICARE, MEDICAID ==
[~2021-06-19] MED LIST changes: -CATHETER FLUSH 10 ML SYR IV PRN; -HOLD METFORMIN - RECEIVED CONTRAST 20 ML VIAL IV SCH; -IOHEXOL 350 MG/ML 100 ML (OMNIPAQUE 350) VIAL IV ONE; -NS 100 ML (IVPB) BAG IV ONE
--- NOTE | 2021-06-19 09:21 | Diagnostic Imaging Report ---
Clinical indication: Patient with pleural effusion. Exam: Chest x-ray PA and lateral views. Comparisons: Chest x-ray dated 03/12/2018. Findings: There is elevation left hemidiaphragm with prominent gastric bubble beneath it. There is development of discoid atelectasis in left lung base. Remainder of lungs are clear. There is no pleural effusion or pneumothorax. Pulmonary vasculature and cardiac silhouettes within normal limits. Again seen postop changes to the chest consistent with CABG. IMPRESSION: 1: There is development of left basilar atelectasis. Again seen elevation of the left hemidiaphragm. 2: Stable postop changes to the chest. Dictated by: Dictated on workstation # [id number]
== END ==
LOC: RAD 08:48
PROVIDERS: ATTEND Nurse Practitioner Family
DX: J98.11 Atelectasis (principal); J90 Pleural effusion, not elsewhere classified; Z98.890 Other specified postprocedural states
CPT/HCPCS: 71046

== ENCOUNTER → 2021-09-07 | Outpatient (CLI) | payer MEDICARE, MEDICAID | LOC: EDSTATUS 06-08 13:04 → ONC 13:05 | PROVIDERS: ATTEND Internal Medicine Hematology & Oncology | DX: D72.829 Elevated white blood cell count, unspecified (principal); D69.6 Thrombocytopenia, unspecified; D64.9 Anemia, unspecified; E11.9 Type 2 diabetes mellitus without complications; I11.9 Hypertensive heart disease without heart failure; I25.2 Old myocardial infarction | CPT/HCPCS: 99213 ==

== ENCOUNTER 2022-01-03 08:16 | Inpatient (IN) | payer MEDICARE, MEDICAID ==
[~2022-01-03] VITALS: Ht 167 cm; Wt 56.2 kg
[~2022-01-03 08:16] MED LIST changes: -FLUT16SP22 NS; +FLUT16SP22 NSEACH; -LISI-729 PO; +LISI5TAB20 PO
--- NOTE | 2022-01-03 08:37 | ED General ---
General Stated Complaint: UNRESPONSIVE Source of Information: EMS Exam Limitations: Physical Impairments History of Present Illness Date Seen by Provider: Jan 03, 2022 Time Seen by Provider: 08:20 Initial Comments Patient is a 81-year-old female brought from [facility] by EMS chief complaint of change in mental status with lower than normal blood pressures and tachycardia. Patient was found by nursing staff this morning with the symptoms. History of hypertension, diabetes, colovesicular fistula and colostomy. Blood pressure reported to be as low as the 70s with heart rate in the 130s by residential staff. EMS reports systolic of 105 tachycardia in the 120s. Temp on arrival axillary 99.1. Patient is alert and will respond. I am not sure her responses are reliable. She speaks in a very quiet whispered voice. Describes a little abdominal discomfort with palpation. Does not feel short of breath. [facility] staff reported that they increased her home oxygen from 3-4 prior to transport. She has a colostomy bag over fistula site in the center low abdomen as well as a colostomy upper left almost midline. Minimal output noted from each of these. Rapid Covid tested negative prior to leaving the residential this morning Review of systems difficult secondary to the patient's age, chronic debility/edentulous state and whispered voice. Timing/Duration: 1 Hour Severity: Moderate Associated Systoms: Malaise, Weakness Allergies and Home Medications Allergies Coded Allergies: Fish Containing Products (Unverified Allergy, Unknown, 03/07/21) iodine (Unverified Allergy, Unknown, 03/07/21) peanut (Unverified Allergy, Unknown, 03/07/21) shrimp (Verified Allergy, Unknown, 04/30/19) Uncoded Allergies: POPCORN (Allergy, Unknown, 03/07/21) Patient Home Medication List Home Medication List Reviewed: Yes Acetaminophen (Acetaminophen 8 Hour) 650 Mg Tablet.er, 650 MG PO Q8H PRN for PAIN-BREAKTHROUGH, (Reported) Entered as Reported by: PEYTON DESIR on 05/19/21 1149 Albuterol Sulfate (Proair Hfa) 1 Puff Puff, 2 PUFF IH Q4H PRN for SHORTNESS OF BREATH, (Reported) Entered as Reported by: BRITTANEY HEBERT on 05/04/21 1436 Ascorbate Calcium (Vitamin C) 500 Mg Tablet, 500 MG PO DAILY, (Reported) Entered as Reported by: PEYTON DESIR on 05/19/21 1149 Atorvastatin Calcium (Atorvastatin Calcium) 20 Mg Tablet, 20 MG PO 1800, (Reported) Entered as Reported by: BRITTANEY HEBERT on 05/04/21 1436 Bisacodyl (Bisacodyl) 5 Mg Tablet.dr, 10 MG PO BID, (Reported) Entered as Reported by: KIM AVILA on 07/29/19 1514 Cetirizine HCl (Zyrtec) 10 Mg Tablet, 5 MG PO 1800, (Reported) Entered as Reported by: SLIME AREVALO on 06/05/19 0917 Cholecalciferol (Vitamin D3) (Vitamin D3) 25 Mcg Capsule, 50 MCG PO DAILY, (Re ported) Entered as Reported by: PEYTON DESIR on 05/19/21 1149 Cyanocobalamin (Vitamin B-12) (B-12) 500 Mcg Tablet, 500 MCG PO Q48H, (Reported) Entered as Reported by: BRITTANEY HEBERT on 05/04/21 1436 Cyclobenzaprine HCl (Cyclobenzaprine HCl) 5 Mg Tablet, 5 MG PO Q8H PRN for MUSCLE SPASMS, (Reported) Entered as Reported by: BRITTANEY HEBERT on 05/04/21 1436 Dimethicone (Remedy Nutrashield) 118 Ml Cream.ml., 1 APPLIC TP BID, (Reported) Entered as Reported by: PEYTON DESIR on 05/19/21 1149 Empagliflozin (Jardiance) 25 Mg Tablet, 25 MG PO DAILY, (Reported) Entered as Reported by: BRITTANEY HEBERT on 05/04/21 1436 Estradiol (Estrace Cream) 42.5 Gm Cream.appl, 1 GM VG HS, (Reported) Entered as Reported by: BRITTANEY HEBERT on 05/04/21 1436 Fluconazole (Fluconazole) 200 Mg Tablet, 200 MG PO DAILY Prescribed by: JACQUELINE MCDANIEL on 05/20/21 1234 Fluticasone Propionate (Fluticasone Propionate) 16 Gm [place].susp, 1 SPRAY NS DAILY, (Reported) Entered as Reported by: SLIME AREVALO on 05/01/19 0831 Furosemide (Furosemide) 40 Mg Tablet, 40 MG PO DAILY, (Reported) Entered as Reported by: KIM AVILA on 07/29/19 1514 Gabapentin (Gabapentin) 100 Mg Capsule, 200 MG PO 1800, (Reported) Entered as Reported by: SLIME AREVALO on 05/01/19 08 Hydrocodone/Acetaminophen (Hydrocodone-Acetamin 5-325 mg) 1 Each Tablet, 1-2 E ACH PO Q4H PRN for PAIN-MODERATE (5-7), (Reported) Entered as Reported by: BRITTANEY HEBERT on 05/04/21 1436 Iron Ag,Ps/C/Fa6/B12/Zn/SA/Sto (Niferex Tablet) 1 Each Tablet, 1 EACH PO DAILY, (Reported) Entered as Reported by: BRITTANEY HEBERT on 05/04/21 1436 Ketoconazole (Ketoconazole) 15 Gm Cream..g., 1 APPLIC TOP BID, (Reported) Entered as Reported by: PEYTON DESIR on 05/19/21 1149 L. Acidophilus/L.bulgaricus (Lactobacillus 1 Million Cfu Tb) 1 Each Tablet, 1 EACH PO 1800, (Reported) Entered as Reported by: BRITTANEY HEBERT on 05/04/21 1436 Levothyroxine Sodium (Synthroid) 25 Mcg Tablet, 25 MCG PO DAILY, (Reported) Entered as Reported by: SLIME AREVALO on 05/01/19 08 Lorazepam (Ativan) 0.5 Mg Tablet, 0.5 MG PO DAILY, (Reported) Entered as Reported by: PEYTON DESIR on 05/19/21 1149 Magnesium Hydroxide (Milk of Magnesia) 400 Mg/5 Ml Oral.susp, 30 ML PO DAILY PRN for CONSTIPATION-7TH LINE, (Reported) Entered as Reported by: SLIME AREVALO on 05/01/19 08 Magnesium Oxide (Magox 400) 400 Mg Tablet, 400 MG PO DAILY, (Reported) Entered as Reported by: SLIME AREVALO on 05/01/19 08 Menthol (Biofreeze) 118 Ml Gel..ml., 1 APPLIC TP Q6H PRN for SPASMS, (Reported) Entered as Reported by: SLIME AREVALO on 06/05/19 0917 Methyl Salicylate/Menth/Camph (Muscle Rub Ultra Str Cream) 114 Gm Cream..g., 1 APPLIC TP Q6H PRN for PAIN-BREAKTHROUGH, (Reported) Entered as Reported by: PEYTON DESIR on 05/19/21 1149 Metoprolol Succinate (Metoprolol Succinate) 25 Mg Tab.er.24h, 25 MG PO DAILY, (Reported) Entered as Reported by: BRITTANEY HEBERT on 05/04/21 1436 Miconazole Nitrate (Remedy Antifungal) 118 Ml Cream.ml., 1 APPLIC TP BID, (Reported) Entered as Reported by: PEYTON DESIR on 05/19/21 1149 Miconazole Nitrate (Remedy Antifungal) 85 Gm Powder, 1 APPLIC TP DAILY PRN for PREVENTION, (Reported) Entered as Reported by: PEYTON DESIR on 05/19/21 1149 Miconazole Nitrate (Remedy Antifungal) 118 Ml Cream.ml., 1 APPLIC TP Q12H PRN for REDNESS/IRRITATION, (Reported) Entered as Reported by: PEYTON DESIR on 05/19/21 1156 Ondansetron HCl (Zofran) 4 Mg Tab, 4 MG PO Q8H PRN for NAUSEA/VOMITING-1ST LINE, (Reported) Entered as Reported by: SLIME AREVALO on 06/05/19 0917 Oxybutynin Chloride (Oxybutynin Chloride ER) 10 Mg Tab.er.24, 10 MG PO DAILY, (Reported) Entered as Reported by: BRITTANEY HEBERT on 05/04/21 1436 Polyethylene Glycol 3350 (Polyethylene Glycol 3350) 17 Gm Powd.pack, 17 GM PO Q12H PRN for CONSTIPATION-2ND LINE, (Reported) Entered as Reported by: BRITTANEY HEBERT on 05/04/21 1436 Sennosides/Docusate Sodium (Senna S Tablet) 1 Each Tablet, 3 EA PO 1800, (Reported) Entered as Reported by: SLIME AREVALO on 05/01/19 0831 Sertraline HCl (Sertraline HCl) 50 Mg Tablet, 50 MG PO 1800, (Reported) Entered as Reported by: SLIME AREVALO on 05/01/19 0831 Sodium Chloride (Sodium Chloride) 1 Gm Tab, 1 GM PO BID, (Reported) Entered as Reported by: BRITTANEY HEBERT on 05/04/21 1436 Trazodone HCl (Trazodone HCl) 100 Mg Tablet, 100 MG PO 1800, (Reported) Entered as Reported by: SLIME AREVALO on 05/01/19 0831 Triamcinolone Acet (Triamcinolone Acetonide 0.1% Cream) 15 Gm Cr, 1 APPLIC TP BID, (Reported) Entered as Reported by: PEYTON DESIR on 05/19/21 1149 Triamcinolone Acet (Triamcinolone Acetonide 0.1% Cream) 15 Gm Cr, 1 APPLIC TP DAILY PRN for RASH, (Reported) Entered as Reported by: PEYTON DESIR on 05/19/21 1149 Trolamine Salicylate/Aloe Vera (Aspercreme 10% Cream) 35.4 Gm Cream..g., 1 APPLI C TP Q8H PRN for PAIN-BREAKTHROUGH, (Reported) Entered as Reported by: BRITTANEY HEBERT on 05/04/21 1436 Ubidecarenone (Co Q-10) 30 Mg Capsule, 30 MG PO DAILY, (Reported) Entered as Reported by: PEYTON DESIR on 05/19/21 1149 Review of Systems Review of Systems Constitutional: see HPI Gastrointestinal: abdominal pain Review of systems difficult to obtain secondary to the patient's chronic melisa ility, whispered voice, fatigue/somnolence Past Xskuapo-Cwynjq-Jcgply Hx Seasonal Allergies Seasonal Allergies: No Past Medical History Surgeries: Yes (BYPASS GRAFT, FOOT MANIPULATION, FLEXIBLE DIAG CYSTOSCOPY, colostomy) CABG, Hysterectomy Respiratory: Yes (COPD) COPD Currently Using CPAP: No Currently Using BIPAP: No Cardiac: Yes Coronary Artery Disease, Heart Attack, 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 Neurological: No 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 Disorders: No [employer] History: Hysterectomy Sexually Transmitted Disease: No HIV/AIDS: No Genitourinary: Yes Renal Failure Gastrointestinal: Yes (colon mass, COLOSTOMY) Diverticulosis Musculoskeletal: Yes Arthritis Endocrine: Yes Diabetes, Insulin dep HEENT: Yes (WEARS GLASSES) Loss of Vision: Denies Cancer: No Psychosocial: Yes Sleep Difficulties, Anxiety, Depression Integumentary: No Blood Disorders: No Adverse Reaction/Blood Tranf: No (N/A) Family Medical History Alzheimer's disease Cardiovascular disease 19 FATHER 19 MOTHER Diabetes mellitus 19 MOTHER No Pertinent Family Hx Physical Exam Vital Signs Vital Signs - First Documented 01/03/22 08:16 Temp 37.3 Pulse 126 Resp 16 B/P (MAP) 108/51 (70) Pulse Ox 99 O2 Delivery Room Air Capillary Refill : Height, Weight, BMI Height: 0'60.00" Weight: 150lbs. 3.2oz. [id number]; 21.26 BMI Method:Stated General Appearance: No Apparent Distress, WD/WN, Chronically ill Eyes: Bilateral Eye Normal Inspection, Bilateral Eye PERRL, Bilateral Eye EOMI HEENT: Other (edentulous) Neck: Normal Inspection Respiratory: Lungs Clear, Normal Breath Sounds, No Accessory Muscle Use, No Respiratory Distress, Other (Wearing 4 L of oxygen per nasal cannula; (slightly diminished left base - likely secondary to effort)) Cardiovascular: Regular Rate, Rhythm, Normal Peripheral Pulses, Tachycardia, Other (midline sternotomy scar - well healed) Gastrointestinal: Normal Bowel Sounds, Soft, Other (Few ostomy sites noted in the anterior abdominal wall with minimal stool output. No surrounding erythema or foul smells noted. Abdomen is soft and nondistended.) Back: Normal Inspection Extremity: Normal Capillary Refill, Normal Inspection, Normal Range of Motion, Non Tender, No Calf Tenderness, No Pedal Edema Neurologic/Psychiatric: Alert, No Motor/Sensory Deficits, Normal Mood/Affect, Other (patient is edentulous and difficult to understand, speaking in a whispered voice) Skin: Normal Color, Warm/Dry, Other (Patient has scalded skin at the rectum and perineum, minor skin breakdown, quite erythematous, powder and cream is noted under the adult diaper) Focused Exam Sepsis Stage: Sepsis Possible Source: Genitouriary Lactate Level 01/03/22 08:26: Lactic Acid Level 2.35*H Time of Focused Exam: 10:00 Respiratory: Lungs Clear, No Accessory Muscle Use, No Respiratory Distress Cardiovascular: Tachycardia Capillary Refill: Less Than 3 Seconds Peripheral Pulses: 1+ Radial Pulses (R), 1+ Radial Pulses (L) Skin: normal color, warm/dry Lactic Acid Level Laboratory Tests Test 01/03/22 08:26 Lactic Acid Level 2.35 MMOL/L (0.50-2.00) *H Within 3hrs of presentation: Admin fluids, Admin ABX, Blood cultures prior to ABX's, Focus exam, Lactate level Progress/Results/Core Measures Suspected Sepsis SIRS Temperature: Pulse: Respiratory Rate: Laboratory Tests 01/03/22 08:26: White Blood Count 37.8*H Blood Pressure / Mean: 01/03/22 08:26: Lactic Acid Level 2.35*H Laboratory Tests 01/03/22 08:26: Creatinine 0.88, INR Comment 1.1, Platelet Count 453H, Total Bilirubin 0.3 Results/Orders Lab Results Laboratory Tests Test 01/03/22 08:26 01/03/22 08:40 Range/Units White Blood Count 37.8 *H 4.3-11.0 10^3/uL Red Blood Count 4.45 3.80-5.11 10^6/uL Hemoglobin 11.6 11.5-16.0 g/dL Hematocrit 38 35-52 % Mean Corpuscular Volume 85 80-99 fL Mean Corpuscular Hemoglobin 26 25-34 pg Mean Corpuscular Hemoglobin Concent 31 L 32-36 g/dL Red Cell Distribution Width 13.8 10.0-14.5 % Platelet Count 453 H 130-400 10^3/uL Mean Platelet Volume 9.4 9.0-12.2 fL Immature Granulocyte % (Auto) 3 % Neutrophils (%) (Auto) 87 H 42-75 % Lymphocytes (%) (Auto) 4 L 12-44 % Monocytes (%) (Auto) 6 0-12 % Eosinophils (%) (Auto) 0 0-10 % Basophils (%) (Auto) 0 0-10 % Neutrophils # (Auto) 32.8 H 1.8-7.8 10^3/uL Lymphocytes # (Auto) 1.5 1.0-4.0 10^3/uL Monocytes # (Auto) 2.1 H 0.0-1.0 10^3/uL Eosinophils # (Auto) 0.0 0.0-0.3 10^3/uL Basophils # (Auto) 0.1 0.0-0.1 10^3/uL Immature Granulocyte # (Auto) 1.2 H 0.0-0.1 10^3/uL Neutrophils % (Manual) 65 % Lymphocytes % (Manual) 4 % Monocytes % (Manual) 6 % Eosinophils % (Manual) 0 % Basophils % (Manual) 0 % Metamyelocytes % 3 % Band Neutrophils 22 % Blood Morphology Comment NORMAL Prothrombin Time 14.3 12.2-14.7 SEC INR Comment 1.1 0.8-1.4 Activated Partial Thromboplast Time 30 24-35 SEC Sodium Level 137 135-145 MMOL/L Potassium Level 3.4 L 3.6-5.0 MMOL/L Chloride Level 97 L 98-107 MMOL/L Carbon Dioxide Level 28 21-32 MMOL/L Anion Gap 12 5-14 MMOL/L Blood Urea Nitrogen 26 H 7-18 MG/DL Creatinine 0.88 0.60-1.30 MG/DL Estimat Glomerular Filtration Rate 67 BUN/Creatinine Ratio 30 Glucose Level 313 H 70-105 MG/DL Lactic Acid Level 2.35 *H 0.50-2.00 MMOL/L Calcium Level 9.7 8.5-10.1 MG/DL Corrected Calcium 9.9 8.5-10.1 MG/DL Total Bilirubin 0.3 0.1-1.0 MG/DL Aspartate Amino Transf (AST/SGOT) 12 5-34 U/L Alanine Aminotransferase (ALT/SGPT) 7 0-55 U/L Alkaline Phosphatase 79 40-136 U/L C-Reactive Protein High Sensitivity 6.31 H 0.00-0.50 MG/DL Total Protein 7.6 6.4-8.2 GM/DL Albumin 3.8 3.2-4.5 GM/DL Procalcitonin 35.25 H <0.10 NG/ML Urine Color YELLOW Urine Clarity TURBID H Urine pH 5.5 5-9 Urine Specific [place] 1.020 1.016-1.022 Urine Protein 2+ H NEGATIVE Urine Glucose (UA) 2+ H NEGATIVE Urine Ketones NEGATIVE NEGATIVE Urine Nitrite NEGATIVE NEGATIVE Urine Bilirubin NEGATIVE NEGATIVE Urine Urobilinogen NORMAL < = 1.0 MG/DL Urine Leukocyte Esterase 2+ H NEGATIVE Urine RBC (Auto) 3+ H NEGATIVE Urine RBC 0-2 /HPF Urine WBC TNTC H /HPF Urine Squamous Epithelial Cells NONE /HPF Urine Crystals NONE /LPF Urine Bacteria LARGE H /HPF Urine Casts NONE /LPF Urine Mucus NEGATIVE /LPF Urine Culture Indicated YES My Orders Orders - NEIDA WASHINGTON MD Cbc With Automated Diff (01/03/22 08:31) Comprehensive Metabolic Panel (01/03/22 08:31) Blood Culture (01/03/22 08:31) Sputum Culture (01/03/22 08:31) Urinalysis (01/03/22 08:31) Urine Culture (01/03/22 08:31) Protime With Inr (01/03/22 08:31) Partial Thromboplastin Time (01/03/22 08:31) Chest 1 View, Ap/Pa Only (01/03/22 08:31) Ed Iv/Invasive Line Start (01/03/22 08:31) Ed Iv/Invasive Line Start (01/03/22 08:31) Vital Signs Adult Sepsis Patie Q15M (01/03/22 08:31) O2 (01/03/22 08:31) Remove Rings In Anticipation O (01/03/22 08:31) Lactic Acid Analyzer (01/03/22 08:31) Catheter(Urinary) Insert & Ass 03,15 (01/03/22 08:31) Hs C Reactive Protein (01/03/22 08:31) Procalcitonin (Pct) (01/03/22 08:31) Ekg Tracing (01/03/22 08:31) Ns Iv 1000 Ml (Sodium Chloride 0.9%) (01/03/22 08:45) Acetaminophen Tablet/Caplet (Tylenol T (01/03/22 08:45) Manual Differential (01/03/22 08:26) Piperacillin Sodium/Tazobactam (Zosyn Vi (01/03/22 09:00) Medications Given in ED Current Medications Medications Dose Ordered Sig/Geeta Route Start Time Stop Time Status Last Admin Dose Admin Acetaminophen 650 mg ONCE ONCE PO 01/03/22 08:45 01/03/22 08:46 DC 01/03/22 09:16 650 MG Vital Signs/I&O 01/03/22 08:16 Temp 37.3 Pulse 126 Resp 16 B/P (MAP) 108/51 (70) Pulse Ox 99 O2 Delivery Room Air Capillary Refill : Progress Note #1: Time: 09:59 Progress Note Patient meets sepsis criteria, significantly elevated white blood cell count, urinary tract infection, tachycardia and slightly low blood pressure. I did empirically give her Zosyn, will discuss with Dr. Javier for admission. Patient is also had 2 L of IV fluids with second 1 still infusing. She had her first liter per EMS. She is also had Tylenol. Progress Note #2: Time: 10:17 Progress Note Discussed with Dr. Javier, she is comfortable with work-up and plan of care thus far. Patient has met her 30/kg fluid bolus here in the emergency department at right at 2 L. Blood pressure is holding at 102/66. She is still tachycardic at 112. Does meet criteria for severe sepsis however Dr. Javier elects to put her not in an ICU bed at this time. We will continue the Zosyn. Que'd orders to be put in by Dr. Javier ECG Initial ECG Impression Date: Jan 03, 2022 Initial ECG Impression Time: 08:46 Initial ECG Rate: 115 Initial ECG Rhythm: S.Tach Initial ECG Intervals TN 183 QRS [address] QTc [address]-T wave changes across the inferior and precordial leads, slight ST depression noted in leads V three, V4, V5 and V6 Initial ECG Comparisson: No Previous ECG Available ((since 2015)) Departure Communication (Admissions) Discussed with Dr Javier Impression Primary Impression: Sepsis Qualified Codes: A41.9 - Sepsis, unspecified organism Additional Impression: UTI (urinary tract infection) Qualified Codes: N39.0 - Urinary tract infection, site not specified Disposition: ADMITTED INPATIENT Condition: Critical Admissions Decision to Admit Reason: Admit from ER (General) Decision to Admit/Date: Jan 03, 2022 Time/Decision to Admit Time: 10:05 Departure-Patient Inst. Referrals: MACEY CAO MD (PCP/Family) Primary Care Physician NEIDA WASHINGTON MD Jan 03, 2022 08:37
[2022-01-03] MEDS ORDERED: NS IV 1000 ML 1,000 ML IV SCH (08:45)
[2022-01-03] MEDS ORDERED: ACETAMINOPHEN 325 MG TABLET PO ONE (08:45)
[2022-01-03 08:53] LABS: BASOPHILS # (AUTO) 0.1 10^3/uL (0.0-0.1); BASOPHILS % (AUTO) 0 % (0-10); EOSINOPHILS % (AUTO) 0 % (0-10); HEMATOCRIT 38 % (35-52); HEMOGLOBIN 11.6 g/dL (11.5-16.0); LYMPHOCYTES # (AUTO) 1.5 10^3/uL (1.0-4.0); LYMPHOCYTES % (AUTO) 4 % (12-44); MEAN CORPUSCULAR HEMOGLOBIN 26 pg (25-34); MEAN CORPUSCULAR HGB CONC 31 g/dL (32-36); MEAN CORPUSCULAR VOLUME 85 fL (80-99); MEAN PLATELET VOLUME 9.4 fL (9.0-12.2); MONOCYTES # (AUTO) 2.1 10^3/uL (0.0-1.0); MONOCYTES % (AUTO) 6 % (0-12); NEUTROPHILS # (AUTO) 32.8 10^3/uL (1.8-7.8); NEUTROPHILS % (AUTO) 87 % (42-75); PLATELET COUNT 453 10^3/uL (130-400)
[2022-01-03 09:00] LABS: WHITE BLOOD COUNT 37.8 10^3/uL (4.3-11.0)
[2022-01-03] MEDS ORDERED: PIPERACILLIN SODIUM/TAZOBACTAM 4.5 GM in NS (IVPB) 100 ML IV ONE (09:00)
[2022-01-03 09:04] LABS: INR 1.1 (0.8-1.4); PROTHROMBIN TIME PATIENT 14.3 SEC (12.2-14.7)
[2022-01-03 09:06] LABS: ALBUMIN 3.8 GM/DL (3.2-4.5); POTASSIUM 3.4 MMOL/L (3.6-5.0)
[2022-01-03 09:07] LABS: CALCIUM 9.7 MG/DL (8.5-10.1)
[2022-01-03 09:09] LABS: TOTAL PROTEIN 7.6 GM/DL (6.4-8.2)
[2022-01-03 09:11] LABS: BILIRUBIN,TOTAL 0.3 MG/DL (0.1-1.0)
[2022-01-03 09:13] LABS: CREATININE SERUM 0.88 MG/DL (0.60-1.30)
[2022-01-03 09:19] LABS: BILIRUBIN,URINE NEGATIVE (NEGATIVE); CLARITY,URINE TURBID; COLOR,URINE YELLOW; GLUCOSE, URINE (UA) 2+ (NEGATIVE); KETONES,URINE NEGATIVE (NEGATIVE); NITRITE,URINE NEGATIVE (NEGATIVE); PH,URINE 5.5 (5-9); PROTEIN,URINE 2+ (NEGATIVE)
[2022-01-03 09:20] LABS: LEUKOCYTE ESTERASE ,URINE 2+ (NEGATIVE); WBC,URINE TNTC /HPF
[2022-01-03 09:22] LABS: BACTERIA,URINE LARGE /HPF; RBC,URINE 0-2 /HPF
[2022-01-03 09:44] LABS: BAND NEUTROPHILS 22 %; BASOPHILS % (MANUAL) 0 %; EOSINOPHILS % (MANUAL) 0 %; LYMPHOCYTES % (MANUAL) 4 %; METAMYELOCYTES % 3 %; MONOCYTES % (MANUAL) 6 %; NEUTROPHILS % (MANUAL) 65 %; RBC MORPH NORMAL
--- NOTE | 2022-01-03 10:12 | Diagnostic Imaging Report ---
Indication: Increasing weakness and confusion as well as low blood pressure. TIME OF EXAM: 9:32 AM Correlation is made with prior chest 05/18/2021. Changes of median sternotomy and CABG are noted. Left hemidiaphragm is chronically elevated. There is some minimal resultant left basilar subsegmental atelectasis. Right lung is clear. The pulmonary vascularity is normal. No effusion or pneumothorax is detected. IMPRESSION: Minimal left basilar subsegmental atelectasis. No other significant abnormality is detected. Dictated by: Dictated on workstation # [id number]
[2022-01-03] MEDS ORDERED: ANTACID SUSP 30 ML UDC (MYLANTA) PO PRN (12:45)
[2022-01-03] MEDS ORDERED: polyethylene glycoL POWDER 17 GM (MIRALAX) PACK PO PRN (12:45)
[2022-01-03] MEDS ORDERED: VANCOMYCIN INJECTION 1,000 MG in NS (IVPB) 250 ML IV SCH (12:45)
[2022-01-03] MEDS ORDERED: HALOPERIDOL 5 MG/ML (HALDOL) VIAL IM PRN (12:45)
[2022-01-03] MEDS ORDERED: ONDANSETRON 4 MG (ZOFRAN) ORAL DISSOLVE TAB PO PRN (12:45)
[2022-01-03] MEDS ORDERED: LORazepam INJ 2 MG/ML (ATIVAN) VIAL IVP PRN (12:45)
[2022-01-03] MEDS ORDERED: ALPRAZolam 0.25 MG (XANAX) TAB PO PRN (12:45)
[2022-01-03] MEDS ORDERED: CALCIUM CARBONATE 500 MG (TUMS) TAB.CHEW PO PRN (12:45)
[2022-01-03] MEDS ORDERED: MILK OF MAGNESIA 400 MG/5 ML 30 ML UDC PO PRN (12:45)
[2022-01-03] MEDS ORDERED: NALOXONE 0.4 MG/ML 1 ML (NARCAN) VIAL IV PRN (12:45)
[2022-01-03] MEDS ORDERED: morphine INJ 4 MG/ML 1 ML (VIAL/SYRINGE) IV PRN (12:45)
[2022-01-03] MEDS ORDERED: BISACODYL 10 MG SUPP (DULCOLAX) PR PRN (12:45)
[2022-01-03] MEDS ORDERED: ONDANSETRON 4 MG/2 ML (SDV) Z0FRAN IV PRN (12:45)
[2022-01-03] MEDS ORDERED: LACTULOSE SYRUP 10GM/15ML (ENULOSE) 30ML UDC PO PRN (12:45)
[2022-01-03] MEDS: NS IV 1000 ML 1,000 ML IV SCH ×3 (13:13→22:52)
[2022-01-03] MEDS: ENOXAPARIN 40 MG/0.4 ML (LOVENOX) SYR SC SCH (13:13)
[2022-01-03] MEDS ORDERED: VANCOMYCIN 1250 MG/NS 250 ML IVPB IV NR ×2 (14:00)
--- NOTE | 2022-01-03 14:17 | History & Physical-Hospitalist ---
WENDY MIDDLETON 01/03/22 1417: History of Present Illness HPI/Chief Complaint Patient is a 81-year-old female with a PMH of hypertension, COPD, CAD, previous MA, insulin dependent diabetes, renal failure, diverticulosis, arthritis, colovesicular fistula, she is on home oxygen of 3L, insomnia, anxiety, and colostomy. She presented to the [place] ER today with altered mental status, hypotension, and tachycardia. Patent had some abdominal discomfort and was on 4L of oxygen when she arrived to the ER. The following values were elevated: WBC 37.8, lactate was 2.35, glucose 313, CRP 6.31, procalcitonin 35.25. Potassium was low at 3.4. UA was positive for bacteria and RBC. Patient meets SIRS criteria with leukocytosis, tachycardia, and a UTI. There was concern for septic shock and severe sepsis since the patient had blood pressure of 108/51 along with proof of end organ damage with elevated lactate and altered mental status. A fluid challenge was done which elevated the BP to 102/66. Patient was admitted with severe sepsis due to UTI. Past surgical history includes bypass graft, foot manipulation, flexible diag-cystoscopy, colostomy, CABG, and hysterectomy. Allergies include Fish Containing Products, iodine, peanut and, shrimp. Home medications include acetaminophen, albuterol, ascorbate, atorvastatin, bisacodyl, ceterizine, cholecalciferol, cyanocobalamin, cyclobenzaprine, empagliflozin, estradiol, fluticasone, furosemide, gabapentin, hydrocodone, iron, ketoconazole topical, L acidophilus, levothyroxine. lorazepam, Mg hydroxide, Magnesium oxide, Metoprolol, Miconazole nitrate, ondansetron, oxybutynin, phenol, polyethylene glycol, docusate, sertraline, trazodone, trolamine, Co Q-10. Lives at [facility] and is taken care of by nursing staff there. Patient was asleep when interview was started. Patient was lethargic and unwilling to assist with exam. Was called out to several times and sternal rub was attempted. Patient opened eyes for a few seconds and then closed them without acknowledging the provider. Patient had been given sedatives an hour before this exam and has severe sepsis which is the most likely cause of her lethargy. Source: EMS Exam Limitations: other (Patient too lethargic to participate) Date Seen 01/03/22 Time Seen by a Provider: 14:15 Attending Physician Shreya Javier DO PCP Josh Navarro MD Referring Physician Date of Admission Jan 03, 2022 at 10:20 Home Medications & Allergies Home Medications Reviewed patient Home Medication Reconciliation performed by pharmacy medication reconciliations monogram technician and/or nursing. Patients Allergies have been reviewed. Allergies Allergies Coded Allergies Fish Containing Products (Unverified Allergy, Unknown, 03/07/21) iodine (Unverified Allergy, Unknown, 03/07/21) peanut (Unverified Allergy, Unknown, 03/07/21) shrimp (Verified Allergy, Unknown, 04/30/19) Uncoded Allergies POPCORN ( Allergy, Unknown, 03/07/21) Past Uxszqip-Wjsblu-Cxkfzm Hx Patient Social History Marrital Status: single Employed/Student: unemployed Additional E-Cig or Vaping: Unable to obtain information due to lethargy Additional Alcohol Comments: Unable to obtain information due to lethargy Immunizations Up To Date Date of Influenza Vaccine: Aug 30, 2020 Date of Pneumonia Vaccine: Aug 28, 2019 Seasonal Allergies Seasonal Allergies: No Current Status status: No Primary Language: Greek Preferred Spoken Language: Greek Past Medical History Surgeries: Bowel Surgery (Colostomy), CABG, Hysterectomy COPD Currently Using CPAP: No Currently Using BIPAP: No Coronary Artery Disease, Heart Attack, 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 Sexually Transmitted Disease: No HIV/AIDS: No Renal Failure Diverticulosis Arthritis Diabetes, Insulin dep Loss of Vision: Denies Sleep Difficulties, Anxiety, Depression Blood Disorders: No Adverse Reaction/Blood Tranf: No (N/A) Family Medical History Alzheimer's disease Cardiovascular disease 19 FATHER 19 MOTHER Diabetes mellitus 19 MOTHER No Pertinent Family Hx Review of Systems ROS-Unable to Obtain: Unable to obtain information due to lethargy Physical Exam Physical Exam Vital Signs Vital Signs - First Documented 01/03/22 08:16 Temp 37.3 Pulse 126 Resp 16 B/P (MAP) 108/51 (70) Pulse Ox 99 O2 Delivery Room Air Capillary Refill : Less Than 3 Seconds Height, Weight, BMI Height: 0'60.00" Weight: 150lbs. 3.2oz. [id number]; 24.00 BMI Method:Stated General Appearance: No Apparent Distress Respiratory: Lungs Clear, Normal Breath Sounds Cardiovascular: Regular Rate, Rhythm, No Edema, No Gallop, No Murmur, Normal Peripheral Pulses Gastrointestinal: Normal Bowel Sounds, Other (colostomy bag over fistula site in the center low abdomen as well as a colostomy upper left almost midline) Extremity: Normal Capillary Refill, Normal Inspection Neurologic/Psychiatric: Oriented x3 (Per nursing, was oriented x3 when brought to room from the ER) Skin: Normal Color, Warm/Dry Results Results/Procedures Labs Laboratory Tests 01/03/22 08:26 Patient resulted labs reviewed. Assessment/Plan Admission Diagnosis Severe sepsis due to UTI Admission Status: Inpatient Order (span 2 midnights) Reason for Inpatient Admission: Severe sepsis due to UTI Assessment and Plan Severe Sepsis due to UTI Continue to give IV fluids and monitor blood pressure Monitor lactate levels to ensure they are declining and that end organ damage is not a threat UTI Given IV Piperacillin/Tazobactam in the ER IV vancomycin added to cover Enterococcus IV fluids Na chloride are being given Monitor WBC count to ensure it is declining Altered mental status Should improve with treatment of her infection Patient seemed more oriented once admitted and will be assessed for orientation during her stay Debility Patient is currently too weak to work on physical ability Will assess what her baseline is at the correction she comes from Elevated lactate Sign of end organ damage Give IV fluids Keep the patient on 4L of oxygen Continue to monitor labs Hypokalemia At risk for a further decline in potassium since patient is on insulin Patient will be given IV potassium and magnesium Hyperglycemia Home medication Aspart was restarted DNR Patient has been documented for DNR and will wear a DNR wristlet Diabetes Home medication Aspart was restarted on a sliding scale Patient will have glucose levels checked Colostomy bags Wound care will be done for the two areas that the bags are placed Bags will be emptied daily 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 Home medications withheld due to low blood pressure COPD Home medication Albuterol/Ipratropium was restarted Hypothyroidism TSH and T4 should be assessed Renal failure Renal function is stable with a creatinine of .88 and GFR of 67 Insomnia Home medication Lorazepam was restarted Anxiety Home meds including Sertraline being withheld Ulcer prophylaxis Pantoprazole was started DVT prophylaxis Enoxaparin was started Diagnosis/Problems Diagnosis/Problems (1) Altered mental state (2) Type II diabetes mellitus (3) Hypothyroidism (4) Debility (5) Essential (primary) hypertension (6) UTI (urinary tract infection) Status: Acute Qualifiers: Urinary tract infection type: site unspecified Hematuria presence: without hematuria Qualified Codes: N39.0 - Urinary tract infection, site not specified (7) Severe sepsis (8) Renal failure (9) Insomnia (10) Anxiety (11) DVT prophylaxis (12) Colostomy care (13) Lactate blood increase (14) Hypokalemia (15) Hyperglycemia (16) DNR (do not resuscitate) SHREYA JAVIER DO 01/04/22 0551: History of Present Illness HPI/Chief Complaint CC: Severe sepsis from UTI HPI: 81 yr old WF, clinic pt of Dr. Navarro, who lives in a correction. Pt presented with altered mental status and hypotension. Classified as severe sepsi s from UTI. She did receive the severe sepsis IV fluid protocol and was given antibiotics. Currently pt is stable and will be maintained DNR status. She will be moved to the med surg floor. Source: old records Exam Limitations: clinical condition Past Fuxqlen-Pyazho-Zdhjev Hx Patient Social History Marrital Status: single Employed/Student: unemployed Family Medical History Alzheimer's disease Cardiovascular disease 19 FATHER 19 MOTHER Diabetes mellitus 19 MOTHER Review of Systems Constitutional: see HPI Physical Exam Physical Exam General Appearance: Chronically ill, Other (near comatose) Respiratory: Decreased Breath Sounds Cardiovascular: Regular Rate, Rhythm Assessment/Plan Admission Diagnosis Assessment: Severe sepsis UTI Severe dementia Plan: Antibiotics IV fluids Admission Status: Inpatient Order (span 2 midnights) Reason for Inpatient Admission: Severe sepsis Supervisory-Addendum Brief Verification & Attestation Participated in pt care: history, MDM, physical Personally performed: exam, history, MDM, supervision of care Care discussed with: Medical Student Procedures: n/a Results interpretation: Verified all documentation Verification and Attestation of Medical Student E/M Service A medical student performed and documented this service in my presence. I reviewed and verified all information documented by the medical student and made modifications to such information, when appropriate. I personally performed the physical exam and medical decision making. Shreya Javier, Jan 04, 2022,05:51 WENDY MIDDLETON Jan 03, 2022 14:17 SHREYA JAVIER DO Jan 04, 2022 05:51
[2022-01-03] MEDS ORDERED: ONDA-105 PO (14:20)
[2022-01-03] MEDS ORDERED: PHEN20SP2 MM (14:20)
[2022-01-03] MEDS ORDERED: MICO130A6 TP (14:20)
[2022-01-03] MEDS ORDERED: UBID50CA21 PO (14:20)
[2022-01-03 15:16] VITALS: BP 95/52
[2022-01-03 15:30] VITALS: BP 98/64
[2022-01-03] MEDS ORDERED: RT-ALBUTEROL/IPRATROPIUM 3 ML (DUONEB) VIAL INH PRN (15:30)
[2022-01-03] MEDS: inSUlin ASPART (NovoLOG) 1 UNIT/0.01 ML (CHARGE PER UNIT) SC SCH ×2 (17:23→20:45)
[2022-01-03] MEDS: PIPERACILLIN SODIUM/TAZOBACTAM 4.5 GM in NS (IVPB) 100 ML IV SCH (17:23)
[2022-01-03 20:00] VITALS: BP 99/66
[2022-01-03] MEDS: MICONAZOLE 2% POWDER (DESENEX AF) 90 GM TOP SCH (20:27)
[2022-01-03] MEDS: SENNOSIDES 8.6 MG (SENOKOT) TAB PO SCH (20:34)
[2022-01-03] MEDS: DOCUSATE SODIUM 100 MG (COLACE) CAP PO SCH (20:34)
[2022-01-03] MEDS: ACETAMINOPHEN 325 MG TABLET PO PRN (20:35)
[2022-01-03] MEDS: RT-ALBUTEROL/IPRATROPIUM 3 ML (DUONEB) VIAL INH SCH (21:52)
[2022-01-04 00:18] VITALS: BP 95/56
[2022-01-04] MEDS: PIPERACILLIN SODIUM/TAZOBACTAM 4.5 GM in NS (IVPB) 100 ML IV SCH ×3 (01:41→17:29)
[2022-01-04] MEDS: RT-ALBUTEROL/IPRATROPIUM 3 ML (DUONEB) VIAL INH SCH ×4 (02:22→20:54)
[2022-01-04 04:22] VITALS: BP 97/59
[2022-01-04] MEDS: ACETAMINOPHEN 325 MG TABLET PO PRN ×2 (04:32→11:11)
[2022-01-04] MEDS: inSUlin ASPART (NovoLOG) 1 UNIT/0.01 ML (CHARGE PER UNIT) SC SCH ×4 (05:07→20:32)
[2022-01-04 06:43] LABS: BASOPHILS # (AUTO) 0.1 10^3/uL (0.0-0.1); BASOPHILS % (AUTO) 0 % (0-10); EOSINOPHILS # (AUTO) 0.1 10^3/uL (0.0-0.3); EOSINOPHILS % (AUTO) 0 % (0-10); HEMATOCRIT 29 % (35-52); HEMOGLOBIN 8.8 g/dL (11.5-16.0); LYMPHOCYTES # (AUTO) 2.4 10^3/uL (1.0-4.0); LYMPHOCYTES % (AUTO) 12 % (12-44); MEAN CORPUSCULAR HEMOGLOBIN 26 pg (25-34); MEAN CORPUSCULAR HGB CONC 30 g/dL (32-36); MEAN CORPUSCULAR VOLUME 88 fL (80-99); MEAN PLATELET VOLUME 9.3 fL (9.0-12.2); MONOCYTES # (AUTO) 1.4 10^3/uL (0.0-1.0); MONOCYTES % (AUTO) 7 % (0-12); NEUTROPHILS # (AUTO) 16.6 10^3/uL (1.8-7.8); NEUTROPHILS % (AUTO) 80 % (42-75); PLATELET COUNT 348 10^3/uL (130-400); WHITE BLOOD COUNT 20.6 10^3/uL (4.3-11.0)
[2022-01-04 07:12] LABS: BILIRUBIN,TOTAL 0.4 MG/DL (0.1-1.0); CALCIUM 8.4 MG/DL (8.5-10.1); CREATININE SERUM 0.7 MG/DL (0.60-1.30); POTASSIUM 3.2 MMOL/L (3.6-5.0); TOTAL PROTEIN 6.1 GM/DL (6.4-8.2)
[2022-01-04 08:08] VITALS: BP 118/57
[2022-01-04] MEDS: NS IV 1000 ML 1,000 ML IV SCH ×2 (08:27→22:33)
[2022-01-04] MEDS: DOCUSATE SODIUM 100 MG (COLACE) CAP PO SCH ×2 (08:27→19:45)
[2022-01-04] MEDS: PANTOPRAZOLE 40 MG (PROTONIX) TAB PO SCH (08:27)
[2022-01-04] MEDS: SENNOSIDES 8.6 MG (SENOKOT) TAB PO SCH ×2 (08:27→19:45)
[2022-01-04] MEDS: MICONAZOLE 2% POWDER (DESENEX AF) 90 GM TOP SCH ×2 (08:29→19:46)
[2022-01-04] MEDS ORDERED: MAGNESIUM 1 GM/100 ML IVPB 100 ML IV ONE (11:30)
[2022-01-04 12:02] VITALS: BP 127/61
[2022-01-04] MEDS: POTASSIUM CL 10MEQ/50ML IVPB 50 ML IV SCH ×4 (12:44→16:41)
[2022-01-04] MEDS: ENOXAPARIN 40 MG/0.4 ML (LOVENOX) SYR SC SCH (12:45)
[2022-01-04] MEDS ORDERED: VANCOMYCIN 1000 MG/VIAL ONE (12:51)
--- NOTE | 2022-01-04 13:24 | Progress Note - Hospitalist ---
EMIWENDY 01/04/22 1324: Subjective HPI/CC On Admission Date Seen by Provider: Jan 04, 2022 Time Seen by Provider: 11:00 CC: Severe sepsis from UTI HPI: 81 yr old WF, clinic pt of Dr. Navarro, who lives in a half-way. Pt presented with altered mental status and hypotension. Classified as severe sepsis from UTI. She did receive the severe sepsis IV fluid protocol and was given antibiotics. Currently pt is stable and will be maintained DNR status. She will be [facility] to the [facility] floor. Subjective/Events-last exam Patient is a 81-year-old female with a PMH of hypertension, COPD, CAD, previous DC, insulin dependent diabetes, renal failure, diverticulosis, arthritis, colovesicular fistula, she is on home oxygen of 3L, insomnia, anxiety, and colostomy. She presented to the [place] ER yesterday with altered mental status, hypotension, and tachycardia. She was admitted with severe sepsis due to UTI. Patient says she is feeling much better today. She is unable to recall her trip to the emergency room but remembers feeling very weak yesterday. She did not have any concerns today. Review of Systems General: No Chills; Fatigue HEENT: No Head Aches Pulmonary: No Cough Cardiovascular: No: Chest Pain, Palpitations Gastrointestinal: Abdominal Pain (Says her abdomen is sore where her colosotomy bags are placed); No: Nausea, Vomiting Neurological: Weakness Focused Exam Lactate Level 01/03/22 08:26: Lactic Acid Level 2.35*H 01/03/22 10:36: Lactic Acid Level 2.43*H 01/03/22 12:45: Lactic Acid Level 2.38*H Time of Focused Exam: 10:00 Objective Exam Vital Signs Vital Signs Date Time Temp Pulse Resp B/P (MAP) Pulse Ox O2 Delivery O2 Flow Rate FiO2 01/04/22 12:02 36.8 82 18 127/61 (83) 100 Nasal Cannula 2.00 Capillary Refill : Less Than 3 Seconds General Appearance: No Apparent Distress HEENT: PERRL/EOMI Neck: Full Range of Motion, Normal Inspection Respiratory: Chest Non Tender, Lungs Clear, Normal Breath Sounds, No Accessory Muscle Use, No Respiratory Distress Cardiovascular: Regular Rate, Rhythm, No Edema, No Murmur, Normal Peripheral Pulses Gastrointestinal: Normal Bowel Sounds, Tenderness (Tenderness throughout lower quadrants) Back: Normal Inspection Extremity: Normal Capillary Refill, Normal Inspection, Normal Range of Motion Neurologic/Psychiatric: Alert, Oriented x3, Normal Mood/Affect Skin: Normal Color, Warm/Dry Lymphatic: No Adenopathy Comments Patient was awake and resting in bed when interview was done Results/Procedures Lab Laboratory Tests 01/04/22 06:19 Patient resulted labs reviewed. Assessment/Plan Assessment and Plan Assess & Plan/Chief Complaint Severe Sepsis due to UTI Continue to give IV fluids and monitor blood pressure Monitor lactate levels to ensure they are declining and that end organ damage is not a threat UTI Continue to give IV Piperacillin/Tazobactam, treatment ends 01/08 Continue to give IV vancomycin treatment ends 01/05 IV fluids Na chloride are being given WBC has declined but is still not WNL Altered mental status Patient was fully oriented today Continue to monitor Debility PT/OT consulted to work with patient on increasing her strength and mobility Elevated lactate Sign of end organ damage Give IV fluids Keep the patient on 4L of oxygen Continue to monitor labs Hypokalemia Given IV potassium and magnesium Hyperglycemia Home medication Aspart was restarted DNR Patient has been documented for DNR and will wear a DNR wristlet Diabetes Home medication Aspart was restarted on a sliding scale Patient will have glucose levels checked Colostomy bags Wound care will be done for the two areas that the bags are placed Bags will be emptied daily 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 Home medications withheld due to low blood pressure COPD Home medication Albuterol/Ipratropium was restarted Hypothyroidism TSH and T4 should be assessed Renal failure Renal function is stable with a creatinine of .70 and GFR of 88 Insomnia Home medication Lorazepam was restarted Anxiety Home meds including Sertraline being withheld Ulcer prophylaxis Pantoprazole was started DVT prophylaxis Enoxaparin was started Diagnosis/Problems Diagnosis/Problems (1) Altered mental state (2) Type II diabetes mellitus (3) Hypothyroidism (4) Debility (5) Essential (primary) hypertension (6) UTI (urinary tract infection) Status: Acute Qualifiers: Qualified Codes: N39.0 - Urinary tract infection, site not specified (7) Severe sepsis (8) Renal failure (9) Insomnia (10) Anxiety (11) DVT prophylaxis (12) Colostomy care (13) Lactate blood increase (14) Hypokalemia (15) Hyperglycemia (16) DNR (do not resuscitate) OLAMIDE HEATH DO 01/05/22 0537: Subjective Subjective/Events-last exam Pt is doing a lot better More alert Oriented x3 now Potassium 3.2 will be supplemented with 40 IV and magnesium will be checked and empirically placed on 1g IV Pt feels much better Niece is at the bedside visiting Review of Systems General: Fatigue Objective Exam General Appearance: No Apparent Distress, WD/WN, Chronically ill, Thin Respiratory: Lungs Clear, Normal Breath Sounds Cardiovascular: Regular Rate, Rhythm Neurologic/Psychiatric: Alert, Oriented x3 Assessment/Plan Assessment and Plan Assess & Plan/Chief Complaint IV antibiotics Supervisory-Addendum Brief Verification & Attestation Participated in pt care: history, MDM, physical Personally performed: exam, history, MDM, supervision of care Care discussed with: Medical Student Procedures: n/a Results interpretation: Verified all documentation Verification and Attestation of Medical Student E/M Service A medical student performed and documented this service in my presence. I reviewed and verified all information documented by the medical student and made modifications to such information, when appropriate. I personally performed the physical exam and medical decision making. Olamide Heath, Jan 05, 2022,05:36 WENDY MIDDLETON Jan 04, 2022 13:24 OLAMIDE HEATH DO Jan 05, 2022 05:37
[2022-01-04] MEDS: VANCOMYCIN 1 GM/NS 250 ML IVPB IV SCH ×2 (13:43)
[2022-01-04] MEDS ORDERED: NON-FORMULARY MEDICATION 1 EA EA (Menthol (Biofreeze) 1 APPLIC) TP PRN (14:45)
[2022-01-04] MEDS ORDERED: MILK OF MAGNESIA 400 MG/5 ML 30 ML UDC PO PRN (14:45)
[2022-01-04] MEDS ORDERED: BISACODYL 5 MG (DULCOLAX) TABLET PO PRN (14:45)
[2022-01-04] MEDS ORDERED: CYCLOBENZAPRINE HCL 10 MG PO PRN (14:45)
[2022-01-04] MEDS ORDERED: RT-ALBUTEROL SULF 2.5 MG/3 ML PRE-MIX VIAL IH PRN (14:45)
[2022-01-04] MEDS ORDERED: KETOCONAZOLE 2% CREAM 15 GM (NIZORAL) TOP PRN (14:45)
[2022-01-04] MEDS ORDERED: CHLORASEPTIC SPRAY 177 ML LIQUID MM PRN (14:45)
[2022-01-04] MEDS ORDERED: ESTRADIOL VAGINAL CREAM 42.5 GM (ESTRACE) VG SCH (14:45)
[2022-01-04] MEDS ORDERED: [UNRECOGNIZED DRUG - OTHER] TP PRN (14:45)
[2022-01-04] MEDS ORDERED: polyethylene glycoL POWDER 17 GM (MIRALAX) PACK PO PRN (14:45)
[2022-01-04] MEDS ORDERED: TROLAMINE (ASPERCREME) 10% CR 90 GM TUBE TOP PRN (15:15)
[2022-01-04] MEDS: HYDROcodone/APAP 5 MG/325 MG (LORTAB) TAB PO PRN (15:24)
[2022-01-04] MEDS: CYCLOBENZAPRINE 10 MG (FLEXERIL) TAB PO SCH ×2 (15:26→23:21)
[2022-01-04 16:00] VITALS: BP 143/63
[2022-01-04] MEDS: SENNA W/DOCUSATE (SENOKOT S) TABLET PO SCH (17:10)
[2022-01-04] MEDS: LORATADINE (CLARITIN) 10 MG TAB PO SCH (17:28)
[2022-01-04] MEDS: SERTRALINE 50 MG (ZOLOFT) TABLET PO SCH (17:28)
[2022-01-04] MEDS: GABAPENTIN 100 MG (NEURONTIN) CAP PO SCH (17:28)
[2022-01-04] MEDS ORDERED: CETIRIZINE HCL 5 MG PO SCH (18:00)
[2022-01-04] MEDS: traZODone 100 MG (DESYREL) TAB PO SCH (19:45)
[2022-01-04] MEDS: LACTOBACILLUS ACIDOPHILUS (PROBIOTIC) CAPSULE PO SCH (19:45)
[2022-01-04 20:00] VITALS: BP 124/60
[2022-01-04] MEDS ORDERED: MICONAZOLE NITRATE TP SCH (21:00)
[2022-01-04] MEDS ORDERED: [UNRECOGNIZED DRUG - OTHER] PO SCH (21:00)
[2022-01-05 00:13] VITALS: BP 146/74
[2022-01-05] MEDS: PIPERACILLIN SODIUM/TAZOBACTAM 4.5 GM in NS (IVPB) 100 ML IV SCH ×3 (01:08→17:36)
[2022-01-05] MEDS: RT-ALBUTEROL/IPRATROPIUM 3 ML (DUONEB) VIAL INH SCH ×4 (02:48→19:50)
[2022-01-05 04:38] VITALS: BP 146/70
[2022-01-05] MEDS: inSUlin ASPART (NovoLOG) 1 UNIT/0.01 ML (CHARGE PER UNIT) SC SCH ×4 (05:38→21:46)
[2022-01-05] MEDS: CYCLOBENZAPRINE 10 MG (FLEXERIL) TAB PO SCH ×2 (06:13→14:38)
[2022-01-05] MEDS: NS IV 1000 ML 1,000 ML IV SCH ×3 (06:14→20:37)
[2022-01-05 06:26] LABS: BASOPHILS # (AUTO) 0.1 10^3/uL (0.0-0.1); BASOPHILS % (AUTO) 0 % (0-10); EOSINOPHILS # (AUTO) 0.1 10^3/uL (0.0-0.3); EOSINOPHILS % (AUTO) 1 % (0-10); HEMATOCRIT 27 % (35-52); HEMOGLOBIN 8.2 g/dL (11.5-16.0); LYMPHOCYTES # (AUTO) 2.7 10^3/uL (1.0-4.0); LYMPHOCYTES % (AUTO) 18 % (12-44); MEAN CORPUSCULAR HEMOGLOBIN 26 pg (25-34); MEAN CORPUSCULAR HGB CONC 31 g/dL (32-36); MEAN CORPUSCULAR VOLUME 86 fL (80-99); MEAN PLATELET VOLUME 9.5 fL (9.0-12.2); MONOCYTES # (AUTO) 1.2 10^3/uL (0.0-1.0); MONOCYTES % (AUTO) 8 % (0-12); NEUTROPHILS # (AUTO) 10.9 10^3/uL (1.8-7.8); NEUTROPHILS % (AUTO) 73 % (42-75); PLATELET COUNT 297 10^3/uL (130-400)
[2022-01-05 06:45] LABS: ALBUMIN 2.8 GM/DL (3.2-4.5); BILIRUBIN,TOTAL 0.3 MG/DL (0.1-1.0); CREATININE SERUM 0.61 MG/DL (0.60-1.30); POTASSIUM 3.2 MMOL/L (3.6-5.0); TOTAL PROTEIN 5.8 GM/DL (6.4-8.2)
[2022-01-05 07:44] VITALS: BP 133/61
[2022-01-05] MEDS: LACTOBACILLUS ACIDOPHILUS (PROBIOTIC) CAPSULE PO SCH ×2 (09:00→20:37)
[2022-01-05] MEDS: SENNOSIDES 8.6 MG (SENOKOT) TAB PO SCH ×2 (09:00→20:37)
[2022-01-05] MEDS: LORazepam 0.5 MG (ATIVAN) TABLET PO SCH (09:00)
[2022-01-05] MEDS ORDERED: NON-FORMULARY MEDICATION 1 EA EA (Oxybutynin Chloride (Oxybutynin Chloride ER) 10 MG) PO SCH (09:00)
[2022-01-05] MEDS ORDERED: NON-FORMULARY MEDICATION 1 EA EA (Empagliflozin (Jardiance) 25 MG) PO SCH (09:00)
[2022-01-05] MEDS: DOCUSATE SODIUM 100 MG (COLACE) CAP PO SCH ×2 (09:00→20:37)
[2022-01-05] MEDS: PANTOPRAZOLE 40 MG (PROTONIX) TAB PO SCH (09:00)
[2022-01-05] MEDS: LEVOTHYROXINE 25 MCG (LEVOTHROID) TAB PO SCH (09:01)
[2022-01-05] MEDS: EMPAGLIFLOZIN 10 MG TABLET (JARDIANCE) PO SCH (09:01)
[2022-01-05] MEDS: OXYBUTYNIN (DITROPAN) 5 MG TAB PO SCH ×2 (09:01→20:37)
[2022-01-05] MEDS: MAGNESIUM OXIDE (MAG-OX)400 MG TAB PO SCH (09:01)
[2022-01-05] MEDS: FLUTICASONE NASAL SPRAY (FLONASE) 16 GM BTL NS SCH (09:04)
[2022-01-05] MEDS: MICONAZOLE 2% POWDER (DESENEX AF) 90 GM TOP SCH ×2 (09:06→20:38)
--- NOTE | 2022-01-05 09:23 | Physical Therapy Evaluation ---
PT Evaluation-General Medical Diagnosis Admission Date Jan 03, 2022 at 10:20 Medical Diagnosis: Sepesis Onset Date: Jan 03, 2022 Therapy Diagnosis Therapy Diagnosis: Weakness, debility Height/Weight Height (Feet): 0 Height (Inches): 60.00 Weight (Pounds): 150 Weight (Ounces): 3.2 Precautions Precautions/Isolations: Fall Prevention, Standard Precautions, Pressure Ulcer Referral Physician: Yaya Reason for Referral: Evaluation/Treatment Medical History Pertinent Medical History: CABG, CAD, DM, HTN, [place], Renal Insufficiency Additional Medical History COPD Colostomy Current History Patient presented to ER via EMS from [facility] after a change in mental status. Reviewed History: Yes Social History Home: Halfway Prior Prior Level of Function SCALE: Activities may be completed with or without assistive devices. 6-Yaqncgpdzi-usqnkej completes the activity by him/herself with no assistance from a helper. 5-Set-up or Clean-up Assistance-helper sets up or cleans up; patient completes activity. [place] assists only prior to or following the activity. 4-Supervision or Touching Assistance-helper provides verbal cues and/or touching/steadying and/or contact guard assistance as patient completes activity. Assistance may be provided throughout the activity or intermittently. 3-Partial/Moderate Assistance-helper does LESS THAN HALF the effort. [place] lifts, holds or supports trunk or limbs, but provides less than half the effort. 2-Substantial/Maximal Assistance-helper does MORE THAN HALF the effort. [place] lifts or holds trunk or limbs and provides more than half the effort. 3-Bwcdiepkf-xgcpjw does ALL the effort. Patient does none of the effort to complete the activity. Or, the assistance of 2 or more helpers is required for the patient to complete the activity. If activity was not attempted, code reason: 7-Patient Refused. 9-Not Applicable-not attempted and the patient did not perform the activity before the current illness, exacerbation or injury. 10-Not Attempted due to Environmental Limitations-(lack of equipment, weather restraints, etc.). 88-Not Attempted due to Medical Conditions or Safety Concerns. Bed Mobility: 6 Transfers (B,C,W/C): 4 Gait: 3 Indoor Mobility (Ambulation): Needed Some Help Prior Devices Use: Walker PT Evaluation-Current Subjective Patient presented laying in bed and agreed to participate in physical therapy. Objective Patient Orientation: Person, Place, Situation Attachments: Colostomy/Ileostomy, Oxygen (2L NC), Guo Catheter, IV ROM/Strength ROM Lower Extremities WFL Strength Lower Extremities 3+/t bilateral grossly Integumentary/Posture Bladder Incontinence: Guo Cath Posture Bent over posture with knees bent while ambulating Neuromuscular (Tone, Coordination, Reflexes) grossly intact Transfers Lying to Sitting/Side of Bed(Q: 3 Sit to Stand (QC): 3 Chair/Pql-ey-Sbqeh Xfer(QC): 3 Patient was mod assist for sit to stand and transfer to chair but max assist to sit EOB. Gait Does the Patient Walk?: Yes Mode of Locomotion: Both Anticipated Mode of Locomotion: Both Distance: 5 steps Gait Assistive Device: FWW Comments/Gait Description Patient ambulated for 5 steps to move from the EOB to the chair. Patient required frequent cues to continue to step. Patient was mod assist for stability and due to lack of strength for the transfer. Balance Sitting Static: Normal Sitting Dynamic: Fair Standing Static: Fair Standing Dynamic: Poor Assessment/Needs Patient completed bed mobility and transferred to a chair with therapy. Patient required mod-max assist for all transfers and ambulation. Patient reports that she will take a few steps around her room at the senior living with her walker but mostly uses her wheelchair to go any distance. Rehab Potential: Guarded PT Chcf Goals Chcf Goals PT Chcf Goals Time Frame: Jan 13, 2022 Roll Left & Right (QC): 4 Sit to Lying (QC): 4 Lying-Sitting on Side/Bed(QC): 4 Sit to Stand (QC): 4 Chair/Yqc-kl-Rxagk Xfer(QC): 4 Toilet Transfer (QC): 4 Does the Patient Walk: Yes Walk 10 feet (QC): 4 PT Plan Problem List Problem List: Activity Tolerance, Functional Strength, Safety, Balance, Gait, Transfer, Bed Mobility, ROM Treatment/Plan Treatment Plan: Continue Plan of Care Treatment Plan: Bed Mobility, Education, Functional Activity Jennifer, Functional Strength, Gait, Safety, Therapeutic Exercise, Transfers Treatment Duration: Jan 13, 2022 Frequency: 6 times per week Estimated Hrs Per Day: .25 hour per day Time/GCodes Time In: 815 Time Out: 830 Total Billed Treatment Time: 15 Total Billed Treatment 1 Visit EVMod 15 min HAMMAD BROWN PT Jan 05, 2022 09:23
--- NOTE | 2022-01-05 10:03 | Occupational Therapy Eval ---
OT Evaluation-General/PLF Medical Diagnosis Admission Date Jan 03, 2022 at 10:20 Medical Diagnosis: Sepsis Onset Date: Jan 03, 2022 Therapy Diagnosis Therapy Diagnosis: decreased ADL status Height/Weight Height (Feet): 0 Height (Inches): 60.00 Weight (Pounds): 150 Weight (Ounces): 3.2 Precautions Precautions/Isolations: Fall Prevention, Standard Precautions, Pressure Ulcer Referral Physician: Yaya Referral Reason: Evaluation/Treatment Medical History Pertinent Medical History: CABG, CAD, DM, HTN, [place], Renal Insufficiency Additional Medical History COPD, diveticulosis, arthritis, colovesicular fistula, insomnia, anxiety, colostomy Current History ED with AMS, hypotension, tachycardia Social History Home: Intermediate ADL-Prior Level of Function SCALE: Activities may be completed with or without assistive devices. 2-Zmtbsfayxr-zzwvhls completes the activity by him/herself with no assistance from a helper. 5-Set-up or Clean-up Assistance-helper sets up or cleans up; patient completes activity. Jackson assists only prior to or following the activity. 4-Supervision or Touching Assistance-helper provides verbal cues and/or touching/steadying and/or contact guard assistance as patient completes activity. Assistance may be provided throughout the activity or intermittently. 3-Partial/Moderate Assistance-helper does LESS THAN HALF the effort. Jackson lifts, holds or supports trunk or limbs, but provides less than half the effort. 2-Substantial/Maximal Assistance-helper does MORE THAN HALF the effort. Jackson lifts or holds trunk or limbs and provides more than half the effort. 3-Ywpfjywyq-bhkudx does ALL the effort. Patient does none of the effort to complete the activity. Or, the assistance of 2 or more helpers is required for the patient to complete the activity. If activity was not attempted, code reason: 7-Patient Refused. 9-Not Applicable-not attempted and the patient did not perform the activity before the current illness, exacerbation or injury. 10-Not Attempted due to Environmental Limitations-(lack of equipment, weather restraints, etc.). 88-Not Attempted due to Medical Conditions or Safety Concerns. ADL PLOF Comments Pt reports she primarily uses a walker for functional mobility, using a w/c for distance. She has assistance with showering, and LE dressing. Pt able to manage pants up after they are threaded, and able to complete UE dressing. Pt able to toilet herself, and able to eat independently. Self Care: Needed Some Help Functional Cognition: Independent OT Current Status Subjective Pt up in recliner, agreeable to OT tx. Mental Status/Objective Patient Orientation: Person, Place, Situation Attachments: Colostomy/Ileostomy, Guo Catheter, IV, Oxygen Current Hand Dominance: Right Upper Extremity ROM Decreased, BUE shoulder flexion to approx 80 degrees. Upper Extremity Coordination WFL Upper Extremity Strength grossly 3-/5 ADL-Treatment Eating (QC): 6 (per pt report) Oral Hygiene (QC): 5 (set up with oral sponge) Other Treatments Pt up in recliner, agreeable to OT tx. Pt provided information about PLOF and home set up and participated in UE screen. Pt able to wash her face and use oral swab on gums/tongue after set up assist. Min A with hair brushing in order to brush the back of her hair. Pt declined transferring out of chair, per PT report, pt requires mod-max A with transfers and mobility. Post tx, pt in recliner, call light in reach and all needs met. Education OT Patient Education: Correct positioning, Energy conservation, Modified ADL techniques, Progress toward Goal/Update tx plan, Purpose of tx/functional activities, Rehab process Teaching Recipient: Patient Teaching Methods: Discussion Response to Teaching: Verbalize Understanding OT [facility] Goals Cashier Associate Goals Time Frame: Jan 19, 2022 Eating (QC): 6 Oral Hygiene (QC): 6 Toileting Hygiene (QC): 4 Shower/Bathe Self (QC): 3 Upper Body Dressing (QC): 5 Lower Body Dressing (QC): 3 On/Off Footwear (QC): 2 Additional Goals: 1-Demonstrate ADL Tasks, 2-Verbalize Understanding, 3- ImproveStrength/Jennifer 1=Demonstrate adherence to instructed precautions during ADL tasks. 2=Patient will verbalize/demonstrate understanding of assistive devices/modifications for ADL. 3=Patient will improve strength/tolerance for activity to enable patient to perform ADL's. OT Education/Plan Problem List/Assessment Assessment: Decreased Activ Tolerance, Decreased UE Strength, Impaired Funct Balance, Impaired I ADL's, Impaired Self-Care Skills Discharge Recommendations Plan/Recommendations: Continue POC Treatment Plan/Plan of Care Patient would benefit from OT for education, treatment and training to promote independence in ADL's, mobility, safety and/or upper extremity function for ADL's. Plan of Care: ADL Retraining, Functional Mobility, UE Funct Exercise/Act Treatment Duration: Jan 19, 2022 Frequency: 3 times per week (3-5 times per week) Rehab Potential: Guarded Time/GCodes Start Time: 09:38 Stop Time: 09:48 Total Time Billed (hr/min): 10 Billed Treatment Time 1, HAWK WALKER OT Jan 05, 2022 10:03
[2022-01-05 11:00] VITALS: BP 149/65
[2022-01-05] MEDS: KCL 20 MEQ TAB (K-DUR) PO SCH ×3 (11:10→20:37)
[2022-01-05] MEDS: ENOXAPARIN 40 MG/0.4 ML (LOVENOX) SYR SC SCH (12:00)
--- NOTE | 2022-01-05 12:46 | Progress Note - Hospitalist ---
MIDDLETONWENDY 01/05/22 1246: Subjective HPI/CC On Admission Date Seen by Provider: Jan 05, 2022 Time Seen by Provider: 10:30 CC: Severe sepsis from UTI HPI: 81 yr old WF, clinic pt of Dr. Navarro, who lives in a shelter. Pt presented with altered mental status and hypotension. Classified as severe sepsis from UTI. She did receive the severe sepsis IV fluid protocol and was given antibiotics. Currently pt is stable and will be maintained DNR status. She will be moved to the [facility] floor. Subjective/Events-last exam Patient is a 81-year-old female with a PMH of hypertension, COPD, CAD, previous IA, insulin dependent diabetes, renal failure, diverticulosis, arthritis, colovesicular fistula, she is on home oxygen of 3L, insomnia, anxiety, and colostomy. She presented to the [place] ER yesterday with altered mental status, hypotension, and tachycardia. She was admitted with severe sepsis due to UTI. Patient reports pain and discomfort from her catheter. She says that she is feeling well and has more energy than yesterday. Review of Systems General: No Chills; Fatigue HEENT: No Head Aches Pulmonary: No Cough Cardiovascular: No: Chest Pain, Palpitations Gastrointestinal: No: Nausea, Vomiting Neurological: Weakness Focused Exam Lactate Level 01/03/22 08:26: Lactic Acid Level 2.35*H 01/03/22 10:36: Lactic Acid Level 2.43*H 01/03/22 12:45: Lactic Acid Level 2.38*H Time of Focused Exam: 10:00 Objective Exam Vital Signs Vital Signs Date Time Temp Pulse Resp B/P (MAP) Pulse Ox O2 Delivery O2 Flow Rate FiO2 01/05/22 11:00 36.5 88 18 149/65 (93) 92 Nasal Cannula 2.00 Capillary Refill : Less Than 3 Seconds General Appearance: No Apparent Distress HEENT: PERRL/EOMI Neck: Full Range of Motion Respiratory: Chest Non Tender, Lungs Clear, Normal Breath Sounds, No Accessory Muscle Use, No Respiratory Distress Cardiovascular: Regular Rate, Rhythm, No Edema, No Murmur, Normal Peripheral Pulses Gastrointestinal: Normal Bowel Sounds Extremity: Normal Inspection, Normal Range of Motion, Non Tender Neurologic/Psychiatric: Alert, Oriented x3 Skin: Normal Color, Warm/Dry Lymphatic: No Adenopathy Results/Procedures Lab Laboratory Tests 01/05/22 05:41 Patient resulted labs reviewed. Assessment/Plan Assessment and Plan Assess & Plan/Chief Complaint Severe Sepsis due to UTI Blood pressure was within normal limits today Condition stable UTI Continue to give IV Piperacillin/Tazobactam, treatment ends 01/08 Discontinued vancomycin IV fluids Na chloride are being given WBC has declined but is still not WNL Altered mental status Patient was fully oriented today Continue to monitor Debility PT/OT will continue to work with patient on increasing her strength and mobility Elevated lactate Patients infection is going away evidenced by lowered WBC Repeat lactate is unnecessary Hypokalemia Given IV potassium and magnesium Hyperglycemia Home medication Aspart was restarted Condition stable DNR Patient has been documented for DNR and will wear a DNR wristlet Diabetes Home medication Aspart was restarted on a sliding scale Patient will have glucose levels checked Colostomy bags Wound care will be done for the two areas that the bags are placed Bags will be emptied daily 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 Patient had elevated blood pressure today Home medication of metoprolol was restarted COPD Home medication Albuterol/Ipratropium was restarted Hypothyroidism Condition stable Renal failure Renal function is stable with a creatinine of .61 and GFR of 91 Insomnia Home medication Lorazepam was restarted Anxiety Home meds including Sertraline being withheld Ulcer prophylaxis Pantoprazole was started DVT prophylaxis Enoxaparin was started Diagnosis/Problems Diagnosis/Problems (1) Altered mental state (2) Type II diabetes mellitus (3) Hypothyroidism (4) Debility (5) Essential (primary) hypertension (6) UTI (urinary tract infection) Status: Acute Qualifiers: Qualified Codes: N39.0 - Urinary tract infection, site not specified (7) Severe sepsis (8) Renal failure (9) Insomnia (10) Anxiety (11) DVT prophylaxis (12) Colostomy care (13) Lactate blood increase (14) Hypokalemia (15) Hyperglycemia (16) DNR (do not resuscitate) SHREYA HEATH DO 01/06/22 0606: Subjective Subjective/Events-last exam Patient much better DC catheter Objective Exam General Appearance: No Apparent Distress, WD/WN, Chronically ill Respiratory: Lungs Clear, Normal Breath Sounds Cardiovascular: Regular Rate, Rhythm Assessment/Plan Assessment and Plan Assess & Plan/Chief Complaint DC catheter Continue IV antibiotics Supervisory-Addendum Brief Verification & Attestation Participated in pt care: history, MDM, physical Personally performed: exam, history, MDM, supervision of care Care discussed with: Medical Student Procedures: n/a Results interpretation: Verified all documentation Verification and Attestation of Medical Student E/M Service A medical student performed and documented this service in my presence. I reviewed and verified all information documented by the medical student and made modifications to such information, when appropriate. I personally performed the physical exam and medical decision making. Shreya Heath, Jan 06, 2022,06:05 WENDY MIDDLETON Jan 05, 2022 12:46 SHREYA HEATH DO Jan 06, 2022 06:06
[2022-01-05] MEDS ORDERED: TROUGH ORDER-PHARMACY XX NR (13:00)
[2022-01-05] MEDS: VANCOMYCIN 1 GM/NS 250 ML IVPB IV SCH ×2 (14:38)
[2022-01-05] MEDS: HYDROcodone/APAP 5 MG/325 MG (LORTAB) TAB PO PRN (14:45)
--- NOTE | 2022-01-05 15:37 | Physician Query Clarification ---
Physician Query-General Query to Physician: The medical record reflects the following clinical evidence: Clinical Indicators: Brought to the Hospital due to change in mental status, documentation of confusion on admission with GCS of 14, Confusion, and lethargy. Pt was fully oriented after treatment, GCS documented to be 15 after treatment Risk Factor(s): Sepsis, UTI, glucose 313, advanced age Treatment: IV fluids, IV Zosyn, Monitoring of neuro status 1. Metabolic encephalopathy, present on admission 2. Other explanation of clinical findings 3. Unable to determine (no explanation for clinical findings) Please clarify and document your clinical opinion in the progress notes and discharge summary including the definitive and/or presumptive diagnosis, (suspected or probable), related to the above clinical findings. Please include clinical findings supporting your diagnosis. Venecia Coates MSN, Rn Clinical Egg Processing Supervisor [phone] [email or web address] PHYSICIAN RESPONSE: Based on the clinical findings in the record, please respond to the query above on this document as an addendum. Physician Response: Physician Response 1 If you have questions please contact: Applications Tester: Ext: Thank you for your time and cooperation. Clinical Egg Processing Supervisor/Applications Tester This is a permanent part of the medical record VENECIA COATES Jan 05, 2022 15:37 OLAMIDE HEATH DO Jan 05, 2022 17:14
--- NOTE | 2022-01-05 15:44 | Physician Query Clarification ---
Physician Query-General Query to Physician: The medical record reflects the following clinical evidence: Clinical Indicators: Documentation on nursing admission of a stage II pressure ulcer on the sacral/coccygeal area, area red with skin broken. Risk Factor(s): decreased mobility, lethargy, NH resident Treatment: Allevyn dressing, Turn q 2 with frequent skin assessments, assessment of oral intake 1. Pressure ulcer of sacral region, stage 2, present on admission 2. Other explanation of clinical findings 3. Unable to determine (no explanation for clinical findings) Please clarify and document your clinical opinion in the progress notes and discharge summary including the definitive and/or presumptive diagnosis, (suspected or probable), related to the above clinical findings. Please include clinical findings supporting your diagnosis. Venecia Coates MSN, RN Clinical Resource Director [phone] [email or web address] PHYSICIAN RESPONSE: Based on the clinical findings in the record, please respond to the query above on this document as an addendum. Physician Response: If you have questions please contact: Rotary Driller Helper: Ext: Thank you for your time and cooperation. Clinical Resource Director/Rotary Driller Helper This is a permanent part of the medical record VENECIA COATES Jan 05, 2022 15:44
[2022-01-05 16:00] VITALS: BP 132/75
[2022-01-05] MEDS: LORATADINE (CLARITIN) 10 MG TAB PO SCH (17:36)
[2022-01-05] MEDS: GABAPENTIN 100 MG (NEURONTIN) CAP PO SCH (17:36)
[2022-01-05] MEDS: SERTRALINE 50 MG (ZOLOFT) TABLET PO SCH (17:36)
[2022-01-05] MEDS: SENNA W/DOCUSATE (SENOKOT S) TABLET PO SCH (17:44)
[2022-01-05 19:33] VITALS: BP 153/68
[2022-01-05] MEDS: traZODone 100 MG (DESYREL) TAB PO SCH (20:37)
[2022-01-06] VITALS (7 sets, daily range): BP systolic 119–150; BP diastolic 70–85
[2022-01-06] MEDS: NS IV 1000 ML 1,000 ML IV SCH (00:05)
[2022-01-06] MEDS: CYCLOBENZAPRINE 10 MG (FLEXERIL) TAB PO SCH ×4 (00:05→23:29)
[2022-01-06] MEDS: PIPERACILLIN SODIUM/TAZOBACTAM 4.5 GM in NS (IVPB) 100 ML IV SCH ×3 (02:44→17:11)
[2022-01-06] MEDS: RT-ALBUTEROL/IPRATROPIUM 3 ML (DUONEB) VIAL INH SCH ×4 (03:40→20:36)
[2022-01-06] MEDS: inSUlin ASPART (NovoLOG) 1 UNIT/0.01 ML (CHARGE PER UNIT) SC SCH ×4 (05:35→20:22)
--- NOTE | 2022-01-06 06:43 | Progress Note - Hospitalist ---
Subjective HPI/CC On Admission Date Seen by Provider: Jan 06, 2022 Time Seen by Provider: 10:00 CC: Severe sepsis from UTI HPI: 81 yr old WF, clinic pt of Dr. Navarro, who lives in a detention. Pt presented with altered mental status and hypotension. Classified as severe sepsis from UTI. She did receive the severe sepsis IV fluid protocol and was given antibiotics. Currently pt is stable and will be maintained DNR status. She will be moved to the med surg floor. Subjective/Events-last exam Patient doing pretty well No complaints Hep-Lock IV fluid Supportive care will continue Cultures not back yet Review of Systems General: Fatigue, Malaise Focused Exam Lactate Level Time of Focused Exam: 10:00 Objective Exam Vital Signs Vital Signs Date Time Temp Pulse Resp B/P (MAP) Pulse Ox O2 Delivery O2 Flow Rate FiO2 01/07/22 04:10 36.5 85 17 69/66 (67) 96 Nasal Cannula 4.00 01/06/22 11:17 2 Capillary Refill : Less Than 3 Seconds General Appearance: No Apparent Distress, WD/WN, Chronically ill Respiratory: Lungs Clear, Normal Breath Sounds Cardiovascular: Regular Rate, Rhythm Neurologic/Psychiatric: Alert, Oriented x3, No Motor/Sensory Deficits, Normal Mood/Affect Results/Procedures Lab Laboratory Tests 01/06/22 06:40 Patient resulted labs reviewed. Assessment/Plan Assessment and Plan Assess & Plan/Chief Complaint Severe Sepsis due to UTI Blood pressure was within normal limits today Condition stable UTI Continue to give IV Piperacillin/Tazobactam, treatment ends 01/08 Discontinued vancomycin IV fluids Na chloride are being given WBC has declined but is still not WNL Altered mental status Patient was fully oriented today Continue to monitor Debility PT/OT will continue to work with patient on increasing her strength and mobility Elevated lactate Patients infection is going away evidenced by lowered WBC Repeat lactate is unnecessary Hypokalemia Given IV potassium and magnesium Hyperglycemia Home medication Aspart was restarted Condition stable DNR Patient has been documented for DNR and will wear a DNR wristlet Diabetes Home medication Aspart was restarted on a sliding scale Patient will have glucose levels checked Colostomy bags Wound care will be done for the two areas that the bags are placed Bags will be emptied daily 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 Patient had elevated blood pressure today Home medication of metoprolol was restarted COPD Home medication Albuterol/Ipratropium was restarted Hypothyroidism Condition stable Renal failure Renal function is stable with a creatinine of .61 and GFR of 91 Insomnia Home medication Lorazepam was restarted Anxiety Home meds including Sertraline being withheld Ulcer prophylaxis Pantoprazole was started DVT prophylaxis Enoxaparin was started OLAMIDE HEATH DO Jan 06, 2022 06:43
[2022-01-06 06:56] LABS: BASOPHILS # (AUTO) 0.1 10^3/uL (0.0-0.1); BASOPHILS % (AUTO) 0 % (0-10); EOSINOPHILS # (AUTO) 0.1 10^3/uL (0.0-0.3); EOSINOPHILS % (AUTO) 1 % (0-10); HEMATOCRIT 31 % (35-52); HEMOGLOBIN 9.3 g/dL (11.5-16.0); LYMPHOCYTES # (AUTO) 3.3 10^3/uL (1.0-4.0); LYMPHOCYTES % (AUTO) 18 % (12-44); MEAN CORPUSCULAR HEMOGLOBIN 26 pg (25-34); MEAN CORPUSCULAR HGB CONC 30 g/dL (32-36); MEAN CORPUSCULAR VOLUME 88 fL (80-99); MEAN PLATELET VOLUME 9.5 fL (9.0-12.2); MONOCYTES # (AUTO) 1.1 10^3/uL (0.0-1.0); MONOCYTES % (AUTO) 6 % (0-12); NEUTROPHILS # (AUTO) 14.1 10^3/uL (1.8-7.8); NEUTROPHILS % (AUTO) 75 % (42-75); PLATELET COUNT 332 10^3/uL (130-400); WHITE BLOOD COUNT 18.8 10^3/uL (4.3-11.0)
[2022-01-06 07:26] LABS: ALBUMIN 3.3 GM/DL (3.2-4.5); CHLORIDE 110 MMOL/L (98-107); SODIUM 139 MMOL/L (135-145)
[2022-01-06 07:27] LABS: CALCIUM 8.8 MG/DL (8.5-10.1)
[2022-01-06 07:28] LABS: GLUCOSE 114 MG/DL (70-105); TOTAL PROTEIN 6.9 GM/DL (6.4-8.2)
[2022-01-06 07:29] LABS: CARBON DIOXIDE 15 MMOL/L (21-32)
[2022-01-06 07:30] LABS: BILIRUBIN,TOTAL 0.4 MG/DL (0.1-1.0)
[2022-01-06 07:32] LABS: ALKALINE PHOSPHATASE 56 U/L (40-136); GFR ESTIMATED 88
[2022-01-06 07:33] LABS: BUN/CREATININE RATIO 11
[2022-01-06 07:35] LABS: ALANINE AMINOTRANSFERASE < 6 U/L (0-55)
[2022-01-06] MEDS ORDERED: VANCOMYCIN 1250 MG/NS 250 ML IVPB IV SCH ×2 (08:00)
[2022-01-06] MEDS: KCL 20 MEQ TAB (K-DUR) PO SCH ×3 (08:23→21:17)
[2022-01-06] MEDS: SENNOSIDES 8.6 MG (SENOKOT) TAB PO SCH ×2 (08:23→21:19)
[2022-01-06] MEDS: EMPAGLIFLOZIN 10 MG TABLET (JARDIANCE) PO SCH (08:23)
[2022-01-06] MEDS: LACTOBACILLUS ACIDOPHILUS (PROBIOTIC) CAPSULE PO SCH ×2 (08:23→21:19)
[2022-01-06] MEDS: LORazepam 0.5 MG (ATIVAN) TABLET PO SCH (08:23)
[2022-01-06] MEDS: MAGNESIUM OXIDE (MAG-OX)400 MG TAB PO SCH (08:23)
[2022-01-06] MEDS: DOCUSATE SODIUM 100 MG (COLACE) CAP PO SCH ×2 (08:23→21:19)
[2022-01-06] MEDS: LEVOTHYROXINE 25 MCG (LEVOTHROID) TAB PO SCH (08:23)
[2022-01-06] MEDS: PANTOPRAZOLE 40 MG (PROTONIX) TAB PO SCH (08:23)
[2022-01-06] MEDS: OXYBUTYNIN (DITROPAN) 5 MG TAB PO SCH ×2 (08:23→21:19)
[2022-01-06] MEDS: FLUTICASONE NASAL SPRAY (FLONASE) 16 GM BTL NS SCH (08:24)
[2022-01-06] MEDS: MICONAZOLE 2% POWDER (DESENEX AF) 90 GM TOP SCH ×2 (08:24→21:20)
--- NOTE | 2022-01-06 11:05 | Physical Therapy Progress Note ---
Therapy Progress Note Patient refused treatment reporting that she hurts too bad. Will attempt again next PT visit to progress patients plan of care. MACEY DAVEY PT Jan 06, 2022 11:05
[2022-01-06] MEDS: ENOXAPARIN 40 MG/0.4 ML (LOVENOX) SYR SC SCH (11:19)
[2022-01-06] MEDS: LORATADINE (CLARITIN) 10 MG TAB PO SCH (17:10)
[2022-01-06] MEDS: SERTRALINE 50 MG (ZOLOFT) TABLET PO SCH (17:10)
[2022-01-06] MEDS: GABAPENTIN 100 MG (NEURONTIN) CAP PO SCH (17:11)
[2022-01-06] MEDS: SENNA W/DOCUSATE (SENOKOT S) TABLET PO SCH (17:13)
[2022-01-06] MEDS ORDERED: meTOprolol TARTRATE 25 MG (LOPRESSOR) TABLET PO PRN (20:30)
[2022-01-06] MEDS: traZODone 100 MG (DESYREL) TAB PO SCH (21:19)
[2022-01-06] MEDS: HYDROcodone/APAP 5 MG/325 MG (LORTAB) TAB PO PRN (21:24)
[2022-01-07 00:22] VITALS: BP 122/66
[2022-01-07] MEDS: RT-ALBUTEROL/IPRATROPIUM 3 ML (DUONEB) VIAL INH SCH ×4 (02:09→23:29)
[2022-01-07] MEDS: PIPERACILLIN SODIUM/TAZOBACTAM 4.5 GM in NS (IVPB) 100 ML IV SCH (03:04)
[2022-01-07 04:10] VITALS: BP 69/66
[2022-01-07] MEDS: inSUlin ASPART (NovoLOG) 1 UNIT/0.01 ML (CHARGE PER UNIT) SC SCH ×4 (05:34→20:14)
--- NOTE | 2022-01-07 06:48 | Progress Note - Hospitalist ---
Subjective HPI/CC On Admission Date Seen by Provider: Jan 07, 2022 Time Seen by Provider: 10:00 CC: Severe sepsis from UTI HPI: 81 yr old WF, clinic pt of Dr. Navarro, who [facility] in a [facility]. Pt presented with altered mental status and hypotension. Classified as severe sepsis from UTI. She did receive the severe sepsis IV fluid protocol and was given antibiotics. Currently pt is stable and will be maintained DNR status. She will be moved to the med surg floor. Subjective/Events-last exam Patient doing well Sitting up in chair Lab results delayed so when I evaluated the BMP I noticed bicarb 10 so I repeated and it was improved Chest x-ray reveals new infiltrate Cardiology consult volume overload Meropenem and Vanco restarted for facility acquired pneumonia Lactic Acid level was normal Review of Systems General: Fatigue, Malaise Pulmonary: Dyspnea Focused Exam Lactate Level 01/07/22 20:45: Lactic Acid Level 1.73 Time of Focused Exam: 10:00 Objective Exam Vital Signs Vital Signs Date Time Temp Pulse Resp B/P (MAP) Pulse Ox O2 Delivery O2 Flow Rate FiO2 01/08/22 03:59 36.6 86 19 110/71 (84) 100 Nasal Cannula 2.00 01/06/22 11:17 2 Capillary Refill : Less Than 3 Seconds General Appearance: No Apparent Distress, WD/WN, Chronically ill, Thin Respiratory: No Accessory Muscle Use, No Respiratory Distress, Decreased Breath Sounds Cardiovascular: Regular Rate, Rhythm Neurologic/Psychiatric: Alert, Oriented x3 Results/Procedures Lab Laboratory Tests 01/07/22 07:20 01/07/22 20:45 Patient resulted labs reviewed. Assessment/Plan Assessment and Plan Assess & Plan/Chief Complaint Severe Sepsis due to UTI Blood pressure was within normal limits today Condition stable UTI Discontinued Zosyn and started on Omnicef IV fluid Hep-Lock WBC has increased today Altered mental status Patient was fully oriented today Continue to monitor Debility PT/OT will continue to work with patient on increasing her strength and mobility Elevated lactate Patients infection is going away evidenced by lowered WBC Repeat lactate is normal Hypokalemia Given IV potassium and magnesium Hyperglycemia Home medication Aspart was restarted Condition stable DNR Patient has been documented for DNR and will wear a DNR wristlet Diabetes Home medication Aspart was restarted on a sliding scale Patient will have glucose levels checked Colostomy bags Wound care will be done for the two areas that the bags are placed Bags will be emptied daily 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 Patient had elevated blood pressure today Home medication of metoprolol was restarted COPD Home medication Albuterol/Ipratropium was restarted Hypothyroidism Condition stable Renal failure Renal function is stable with a creatinine of .61 and GFR of 91 Insomnia Home medication Lorazepam was restarted Anxiety Home meds including Sertraline being withheld Ulcer prophylaxis Pantoprazole was started DVT prophylaxis Enoxaparin was started 01/07/2022: Restart antibiotics broad-spectrum due to new infiltrate on chest x-ray Elevated procalcitonin noted Status post blood cultures No evidence of sepsis OLAMIDE HEATH DO Jan 07, 2022 06:48
[2022-01-07] MEDS ORDERED: TROUGH ORDER-PHARMACY XX NR (07:00)
[2022-01-07 07:40] LABS: BASOPHILS # (AUTO) 0.1 10^3/uL (0.0-0.1); BASOPHILS % (AUTO) 1 % (0-10); EOSINOPHILS # (AUTO) 0.3 10^3/uL (0.0-0.3); EOSINOPHILS % (AUTO) 1 % (0-10); HEMATOCRIT 30 % (35-52); HEMOGLOBIN 8.9 g/dL (11.5-16.0); LYMPHOCYTES # (AUTO) 5.6 10^3/uL (1.0-4.0); LYMPHOCYTES % (AUTO) 23 % (12-44); MEAN CORPUSCULAR HEMOGLOBIN 27 pg (25-34); MEAN CORPUSCULAR HGB CONC 30 g/dL (32-36); MEAN CORPUSCULAR VOLUME 90 fL (80-99); MEAN PLATELET VOLUME 9.9 fL (9.0-12.2); MONOCYTES # (AUTO) 1.4 10^3/uL (0.0-1.0); MONOCYTES % (AUTO) 6 % (0-12); NEUTROPHILS # (AUTO) 16.6 10^3/uL (1.8-7.8); NEUTROPHILS % (AUTO) 68 % (42-75); PLATELET COUNT 351 10^3/uL (130-400); WHITE BLOOD COUNT 24.3 10^3/uL (4.3-11.0)
[2022-01-07 07:42] VITALS: BP 130/75
[2022-01-07 07:45] LABS: POTASSIUM 4.9 MMOL/L (3.6-5.0)
[2022-01-07 07:46] LABS: CALCIUM 8.8 MG/DL (8.5-10.1)
[2022-01-07 07:47] LABS: TOTAL PROTEIN 6.2 GM/DL (6.4-8.2)
[2022-01-07 07:49] LABS: BILIRUBIN,TOTAL 0.4 MG/DL (0.1-1.0)
[2022-01-07 07:51] LABS: CREATININE SERUM 0.79 MG/DL (0.60-1.30)
[2022-01-07 08:00] LABS: VANCOMYCIN,TROUGH 17.3 UG/ML (10.0-20.0)
[2022-01-07] MEDS: SENNOSIDES 8.6 MG (SENOKOT) TAB PO SCH ×2 (08:13→20:09)
[2022-01-07] MEDS: CYCLOBENZAPRINE 10 MG (FLEXERIL) TAB PO SCH ×3 (08:13→23:12)
[2022-01-07] MEDS: LEVOTHYROXINE 25 MCG (LEVOTHROID) TAB PO SCH (08:13)
[2022-01-07] MEDS: LORazepam 0.5 MG (ATIVAN) TABLET PO SCH (08:13)
[2022-01-07] MEDS: OXYBUTYNIN (DITROPAN) 5 MG TAB PO SCH ×2 (08:13→20:09)
[2022-01-07] MEDS: DOCUSATE SODIUM 100 MG (COLACE) CAP PO SCH ×2 (08:13→20:09)
[2022-01-07] MEDS: LACTOBACILLUS ACIDOPHILUS (PROBIOTIC) CAPSULE PO SCH ×2 (08:13→20:09)
[2022-01-07] MEDS: EMPAGLIFLOZIN 10 MG TABLET (JARDIANCE) PO SCH (08:13)
[2022-01-07] MEDS: MAGNESIUM OXIDE (MAG-OX)400 MG TAB PO SCH (08:13)
[2022-01-07] MEDS: KCL 20 MEQ TAB (K-DUR) PO SCH ×3 (08:14→20:09)
[2022-01-07] MEDS: PANTOPRAZOLE 40 MG (PROTONIX) TAB PO SCH (08:14)
[2022-01-07] MEDS: CEFDINIR 300 MG (OMNICEF) CAP PO SCH ×2 (08:14→20:09)
[2022-01-07] MEDS: MICONAZOLE 2% POWDER (DESENEX AF) 90 GM TP PRN (08:15)
[2022-01-07] MEDS: FLUTICASONE NASAL SPRAY (FLONASE) 16 GM BTL NS SCH (08:15)
[2022-01-07] MEDS: MICONAZOLE 2% POWDER (DESENEX AF) 90 GM TOP SCH ×2 (08:18→20:10)
[2022-01-07 11:37] VITALS: BP 138/74
--- NOTE | 2022-01-07 11:38 | Diagnostic Imaging Report ---
CLINICAL INDICATIONS: Patient with pneumonia. EXAM: Portable chest x-ray upright view. COMPARISON: Chest x-ray dated 01/03/2022. FINDINGS: Stable elevation of the left hemidiaphragm with gastric bubble beneath the left hemidiaphragm. There is stable atelectasis and/or scarring in the left lung base. There is interval development of minimal airspace opacities in the right lung base which may represent atelectasis versus infiltrate. There is no pleural effusion or pneumothorax. There is stable cardiomegaly with no significant pulmonary vascular congestion. Again seen are postop changes to the chest consistent with CABG. There are hypertrophic spurs involving the spine. IMPRESSION: 1: There is interval development of subtle right basilar atelectasis versus infiltrate. 2: Stable left basilar atelectasis and elevation of the left hemidiaphragm. Dictated by: Dictated on workstation # [id number]
--- NOTE | 2022-01-07 12:09 | Consultation-Cardiology ---
HPI-Cardiology Cardiology Consultation: Date of Consultation 01/07/2022 Date of Admission 01/03/2022 Attending Physician Shreya Javier DO Admitting Physician Josh Navarro MD Consulting Physician CHARLY MOE JR, MD HPI: Time Seen by a Provider: 12:04 Chief Complaint: Reason for consultation: Possible volume overload. I had the pleasure of seeing Sarah in the medical/surgical unit at [facility] in [place], [place] this morning. She has a history of coronary artery disease with previous coronary artery bypass surgery x3. She normally follows with Dr. Basurto at [facility] in [place], [place]. She resides in a custodial facility in [place], [place]. She presented to the hospital 4 days ago with altered mental status. She was admitted to the hospital and treated for sepsis. She did receive a fair amount of intravenous fluids per the sepsis protocol. Today the hospitalist was concerned about possible volume overload and requested a cardiology consultation. The patient states that she has chronic shortness of breath and wears oxygen 24/7 at the custodial. She s tates her breathing is somewhat worse here in the hospital compared to home. She denies any chest discomfort. She did not report any lower extremity edema to me. She denies paroxysmal nocturnal dyspnea, orthopnea, or palpitations. She tells me she gets frequent lightheaded spells if she sits up too quickly but does not report syncope. All she can tell me about the day she was admitted as was that she felt like she was ready to . Certain portions of this document may have been dictated utilizing voice recognition technology. Inherent to this technology, typographical and grammatical errors may exist. As much as I am diligent to identify and correct these mistakes, some errors may remain in the document. Review of Systems-Cardiology Review of Systems Other comments Review of 10 organ systems is as per the history of present illness, otherwise negative. ZNO-Firytl-Dmxbhj Hx Patient Social History Marrital Status: single Employed/Student: unemployed Smoking Status: Former Smoker 2nd Hand Smoke Exposure: No Have you traveled recently?: No Immunizations Up To Date Date of Pneumonia Vaccine: Aug 28, 2019 Date of Influenza Vaccine: Sep 07, 2021 Past Medical History PMH As described under Assessment. Family Medical History Family History: Alzheimer's disease Cardiovascular disease 19 FATHER 19 MOTHER Diabetes mellitus 19 MOTHER Allergies and Home Medications Allergies Coded Allergies: Fish Containing Products (Unverified Allergy, Unknown, 03/07/21) iodine (Unverified Allergy, Unknown, 03/07/21) peanut (Unverified Allergy, Unknown, 03/07/21) shrimp (Verified Allergy, Unknown, 04/30/19) Uncoded Allergies: POPCORN (Allergy, Unknown, 03/07/21) Patient Home Medication List Home Medication List Reviewed: Yes Acetaminophen (Acetaminophen 8 Hour) 650 Mg Tablet.er, 650 MG PO Q8H PRN for PAIN-BREAKTHROUGH, (Reported) Entered as Reported by: PEYTON DESIR on 05/19/21 114 Last Action: Held Albuterol Sulfate (Proair Hfa) 1 Puff Puff, 2 PUFF IH Q4H PRN for SHORTNESS OF BREATH, (Reported) Entered as Reported by: BRITTANEY HEBERT on 05/04/21 143 Last Action: Continued Ascorbate Calcium (Vitamin C) 500 Mg Tablet, 500 MG PO DAILY, (Reported) Entered as Reported by: PEYTON DESIR on 05/19/21 114 Last Action: Held Atorvastatin Calcium (Atorvastatin Calcium) 20 Mg Tablet, 20 MG PO 1800, (Reported) Entered as Reported by: BRITTANEY HEBERT on 05/04/21 143 Last Action: Continued Bisacodyl (Bisacodyl) 5 Mg Tablet.dr, 10 MG PO DAILY PRN for CONSTIPATION-4TH LINE, (Reported) Entered as Reported by: KIM AVILA on 07/29/19 1514 Last Action: Continued Cetirizine HCl (Zyrtec) 10 Mg Tablet, 5 MG PO 1800, (Reported) Entered as Reported by: SLIME AREVALO on 06/05/19 0917 Last Action: Converted Cholecalciferol (Vitamin D3) (Vitamin D3) 25 Mcg Capsule, 50 MCG PO DAILY, (Reported) Entered as Reported by: PEYTON DESIR on 05/19/21 114 Last Action: Held Cyanocobalamin (Vitamin B-12) (B-12) 500 Mcg Tablet, 500 MCG PO Q48H, (Reported) Entered as Reported by: BRITTANEY HEBERT on 05/04/21 1436 Last Action: Held Cyclobenzaprine HCl (Cyclobenzaprine HCl) 5 Mg Tablet, 10 MG PO Q8H PRN for MUSCLE SPASMS, (Reported) Entered as Reported by: BRITTANEY HEBERT on 05/04/211435 Last Action: Converted Empagliflozin (Jardiance) 25 Mg Tablet, 25 MG PO DAILY, (Reported) Entered as Reported by: BRITTANEY HEBERT on 05/04/211435 Last Action: Converted Estradiol (Estrace Cream) 42.5 Gm Cream.appl, 1 GM VG MON,WE,FR @HS, (Reported) Entered as Reported by: BRITTANEY HEBERT on 05/04/211435 Last Action: Continued Fluticasone Propionate (Fluticasone Propionate) 16 Gm [place].susp, 1 SPRAY NSEACH DAILY, (Reported) Entered as Reported by: SLIME AREVALO on 05/01/19830 Last Action: Continued Furosemide (Furosemide) 40 Mg Tablet, 40 MG PO DAILY, (Reported) Entered as Reported by: KIM AVILA on 07/29/191513 Last Action: Held Gabapentin (Gabapentin) 100 Mg Capsule, 200 MG PO 1800, (Reported) Entered as Reported by: SLIME AREVALO on 05/01/19830 Last Action: Continued Hydrocodone/Acetaminophen (Hydrocodone-Acetamin 5-325 mg) 1 Each Tablet, 1-2 EACH PO Q4H PRN for PAIN-MODERATE (5-7), (Reported) Entered as Reported by: BRITTANEY HEBERT on 05/04/211435 Last Action: Continued Iron Ag,Ps/C/Fa6/B12/Zn/SA/Sto (Niferex Tablet) 1 Each Tablet, 1 EACH PO DAILY, (Reported) Entered as Reported by: BRITTANEY HEBERT on 05/04/211435 Last Action: Held Ketoconazole (Ketoconazole) 15 Gm Cream..g., 1 APPLIC TOP BID PRN for REDNESS, (Reported) Entered as Reported by: PEYTON DESIR on 05/19/21 1149 Last Action: Continued L. Acidophilus/L.bulgaricus (Lactobacillus 1 Million Cfu Tb) 1 Each Tablet, 1 EACH PO BID, (Reported) Entered as Reported by: BRITTANEY HEBERT on 05/04/211435 Last Action: Converted Levothyroxine Sodium (Synthroid) 25 Mcg Tablet, 25 MCG PO DAILY, (Reported) Entered as Reported by: SLIME AREVALO on 05/01/19830 Last Action: Continued Lorazepam (Ativan) 0.5 Mg Tablet, 0.5 MG PO DAILY, (Reported) Entered as Reported by: PEYTON DESIR on 05/19/211148 Last Action: Continued Magnesium Hydroxide (Milk of Magnesia) 400 Mg/5 Ml Oral.susp, 30 ML PO DAILY PRN for CONSTIPATION-7TH LINE, (Reported) Entered as Reported by: SLIME AREVALO on 05/01/19830 Last Action: Continued Magnesium Oxide (Magox 400) 400 Mg Tablet, 400 MG PO DAILY, (Reported) Entered as Reported by: SLIME AREVALO on 05/01/19830 Last Action: Continued Menthol (Biofreeze) 118 Ml Gel..ml., 1 APPLIC TP Q6H PRN for SPASMS, (Reported) Entered as Reported by: SLIME AREVALO on 06/05/19916 Last Action: Converted Methyl Salicylate/Menth/Camph (Muscle Rub Ultra Str Cream) 114 Gm Cream..g., 1 APPLIC TP Q6H PRN for PAIN-BREAKTHROUGH, (Reported) Entered as Reported by: PEYTON DESIR on 05/19/211148 Last Action: Converted Metoprolol Succinate (Metoprolol Succinate) 25 Mg Tab.er.24h, 25 MG PO DAILY, (Reported) Entered as Reported by: BRITTANEY HEBERT on 05/04/21 1436 Last Action: Continued Miconazole Nitrate (Remedy Antifungal) 118 Ml Cream.ml., 1 APPLIC TP BID, (Repo rted) Entered as Reported by: PEYTON DESIR on 05/19/21 114 Last Action: Converted Miconazole Nitrate (Remedy Antifungal) 85 Gm Powder, 1 APPLIC TP Q8H PRN for PREVENTION, (Reported) Entered as Reported by: PEYTON DESIR on 05/19/21 114 Last Action: Continued Ondansetron HCl (Ondansetron HCl) 4 Mg Tablet, 4 MG PO Q8H PRN for NAUSEA/VOMITING-1ST LINE, (Reported) Entered as Reported by: PEYTON DESIR on 01/03/22 1420 Last Action: Held Oxybutynin Chloride (Oxybutynin Chloride ER) 10 Mg Tab.er.24, 10 MG PO DAILY, (Reported) Entered as Reported by: BRITTANEY HEBERT on 05/04/211435 Last Action: Converted Phenol (Chloraseptic) 20 Ml [place], 2 SPRAYS MM Q4H PRN for PAIN-BREAKTHROUGH, (Reported) Entered as Reported by: PEYTON DESIR on 01/03/221419 Last Action: Continued Polyethylene Glycol 3350 (Polyethylene Glycol 3350) 17 Gm Powd.pack, 17 GM PO Q12H PRN for CONSTIPATION-2ND LINE, (Reported) Entered as Reported by: BRITTANEY HEBERT on 05/04/211435 Last Action: Continued Sennosides/Docusate Sodium (Senna S Tablet) 1 Each Tablet, 3 EA PO 1800, ( Reported) Entered as Reported by: SLIME AREVALO on 05/01/19830 Last Action: Continued Sertraline HCl (Sertraline HCl) 50 Mg Tablet, 50 MG PO 1800, (Reported) Entered as Reported by: SLIME AREVALO on 05/01/19830 Last Action: Continued Trazodone HCl (Trazodone HCl) 100 Mg Tablet, 100 MG PO HS, (Reported) Entered as Reported by: SLIME AREVALO on 05/01/19830 Last Action: Continued Trolamine Salicylate/Aloe Vera (Aspercreme 10% Cream) 35.4 Gm Cream..g., 1 APPLIC TP Q8H PRN for PAIN-BREAKTHROUGH, (Reported) Entered as Reported by: BRITTANEY HEBERT on 05/04/211435 Last Action: Converted Ubidecarenone (Co Q-10) 50 Mg Capsule, 50 MG PO DAILY, (Reported) Entered as Reported by: PEYTON DESIR on 01/03/22 142 Last Action: Held Discontinued Medications Dimethicone (Remedy Nutrashield) 118 Ml Cream.ml., 1 APPLIC TP BID, (Reported) Discontinued Reason: No Longer Taking Entered as Reported by: PEYTON DESIR on 05/19/21 1149 Last Action: Discontinued Fluconazole (Fluconazole) 200 Mg Tablet, 200 MG PO DAILY Discontinued Reason: No Longer Taking Prescribed by: JACQUELINE MCDANIEL on 05/20/21 1234 Last Action: Discontinued Miconazole Nitrate (Remedy Antifungal) 118 Ml Cream.ml., 1 APPLIC TP Q12H PRN for REDNESS/IRRITATION, (Reported) Discontinued Reason: Prescription changed Entered as Reported by: PEYTON DESIR on 05/19/21 1156 Miconazole Nitrate (Miconazole Nitrate) 130 Gm [place].powd, 130 GM TP Q8H PRN for REDNESS/IRRITATION, (Reported) Discontinued Reason: Duplicate Order Entered as Reported by: PEYTON DESIR on 01/03/22 1420 Last Action: Discontinued Sodium Chloride (Sodium Chloride) 1 Gm Tab, 1 GM PO BID, (Reported) Discontinued Reason: No Longer Taking Entered as Reported by: BRITTANEY HEBERT on 05/04/21 1436 Last Action: Discontinued Triamcinolone Acet (Triamcinolone Acetonide 0.1% Cream) 15 Gm Cr, 1 APPLIC TP BID, (Reported) Discontinued Reason: Duplicate Order Entered as Reported by: PEYTON DESIR on 05/19/21 1149 Last Action: Discontinued Triamcinolone Acet (Triamcinolone Acetonide 0.1% Cream) 15 Gm Cr, 1 APPLIC TP DAILY PRN for RASH, (Reported) Discontinued Reason: No Longer Taking Entered as Reported by: PEYTON DESIR on 05/19/21 1149 Last Action: Discontinued Ubidecarenone (Co Q-10) 30 Mg Capsule, 30 MG PO DAILY, (Reported) Discontinued Reason: Prescription changed Entered as Reported by: PEYTON DESIR on 05/19/21 1149 Exam Vital Signs Vital Signs Date Time Temp Pulse Resp B/P (MAP) Pulse Ox O2 Delivery O2 Flow Rate FiO2 01/07/22 15:59 36.6 91 18 148/76 (100) 94 Nasal Cannula 2.00 01/06/22 11:17 2 Physical Exam General: Alert. No acute distress. Well nourished and appears stated age. She is wearing oxygen by nasal cannula. Eye: Extraocular movements are intact. Conjunctivae are clear. There are no xanthelasma. HENT: Normocephalic. Atraumatic. Carotid pulsations 2/2 without bruits. She is edentulous. Neck: Jugular venous pressure does not appear elevated. No thyromegaly appreciated. Respiratory: Lungs are clear to auscultation but decreased at the bases bilaterally. Respirations are non-labored. Breath sounds are equal. Symmetrical chest wall expansion. Cardiovascular: Normal rate. Regular rhythm. No murmur. No gallop. Point of maximal impulse is not appear displaced. Good pulses equal in all extremities. 1+ bilateral pretibial edema. Gastrointestinal: Soft. Normal bowel sounds. Skin: Skin turgor is normal. There is no pallor. Musculoskeletal: No kyphosis or scoliosis appreciated. Neurologic: Alert and oriented to person, place, time. Cranial nerves 3-12 appear grossly intact. The patient has good motor tone strength in the upper and lower extremities bilaterally. Psychiatric: Cooperative. Appropriate mood & affect. Labs Laboratory Tests Test 01/06/22 20:13 01/07/22 05:06 01/07/22 07:20 01/07/22 10:29 Range/Units Glucometer 136 H 112 H 135 H 70-110 MG/DL White Blood Count 24.3 H 4.3-11.0 10^3/uL Red Blood Count 3.36 L 3.80-5.11 10^6/uL Hemoglobin 8.9 L 11.5-16.0 g/dL Hematocrit 30 L 35-52 % Mean Corpuscular Volume 90 80-99 fL Mean Corpuscular Hemoglobin 27 25-34 pg Mean Corpuscular Hemoglobin Concent 30 L 32-36 g/dL Red Cell Distribution Width 14.9 H 10.0-14.5 % Platelet Count 351 130-400 10^3/uL Mean Platelet Volume 9.9 9.0-12.2 fL Immature Granulocyte % (Auto) 2 % Neutrophils (%) (Auto) 68 42-75 % Lymphocytes (%) (Auto) 23 12-44 % Monocytes (%) (Auto) 6 0-12 % Eosinophils (%) (Auto) 1 0-10 % Basophils (%) (Auto) 1 0-10 % Neutrophils # (Auto) 16.6 H 1.8-7.8 10^3/uL Lymphocytes # (Auto) 5.6 H 1.0-4.0 10^3/uL Monocytes # (Auto) 1.4 H 0.0-1.0 10^3/uL Eosinophils # (Auto) 0.3 0.0-0.3 10^3/uL Basophils # (Auto) 0.1 0.0-0.1 10^3/uL Immature Granulocyte # (Auto) 0.4 H 0.0-0.1 10^3/uL Sodium Level 134 L 135-145 MMOL/L Potassium Level 4.9 3.6-5.0 MMOL/L Chloride Level 108 H 98-107 MMOL/L Carbon Dioxide Level 10 L 21-32 MMOL/L Anion Gap 16 H 5-14 MMOL/L Blood Urea Nitrogen 12 7-18 MG/DL Creatinine 0.79 0.60-1.30 MG/DL Estimat Glomerular Filtration Rate 76 BUN/Creatinine Ratio 15 Glucose Level 109 H 70-105 MG/DL Calcium Level 8.8 8.5-10.1 MG/DL Corrected Calcium 9.6 8.5-10.1 MG/DL Total Bilirubin 0.4 0.1-1.0 MG/DL Aspartate Amino Transf (AST/SGOT) 60 H 5-34 U/L Alanine Aminotransferase (ALT/SGPT) 40 0-55 U/L Alkaline Phosphatase 59 40-136 U/L Total Protein 6.2 L 6.4-8.2 GM/DL Albumin 3.0 L 3.2-4.5 GM/DL Triglycerides Level 165 H <150 MG/DL Cholesterol Level 135 < 200 MG/DL LDL Cholesterol Direct 77 1-129 MG/DL VLDL Cholesterol 33 5-40 MG/DL HDL Cholesterol 31 L 40-60 MG/DL Vancomycin Level Trough 17.3 10.0-20.0 UG/ML Test 01/07/22 15:38 Range/Units Glucometer 191 H 70-110 MG/DL ECG Impression ECG Comment Electrocardiogram from 01/03 showed sinus tachycardia at a heart rate of 115 bpm with early transition and diffuse ST-T wave changes, possibly due to ischemia. Diagnosis/Problems Diagnosis/Problems (1) Volume overload Assessment & Plan: She may have some degree of volume overload due to volume resuscitation when she had sepsis. On the other hand, her chest x-rays have not shown significant pulmonary edema. Unclear whether or not she may have some degree of heart failure at this point in time. I will give her one dose of intravenous furosemide today and see how she responds. She was on oral furosemide at home which we may need to restart. I will check an echocardiogram in the morning. (2) Coronary artery disease without angina pectoris Assessment & Plan: She is not having any angina at this point in time. I have ordered aspirin and beta ana. She should continue on statin. (3) Primary hypertension Assessment & Plan: She was having hypotension while she was septic. Her blood pressures are now improved. I ordered Metoprolol succinate which she was taking at home. (4) Mixed hyperlipidemia Assessment & Plan: Continue statin. (5) Chronic respiratory failure with hypoxia Assessment & Plan: Etiology unclear. She wears oxygen at home which has been continued. CHARLY MOE JR, MD Jan 07, 2022 12:09
[2022-01-07] MEDS ORDERED: FUROSEMIDE 40 MG/4 ML INJ (LASIX) IVP NR (12:15)
[2022-01-07 12:20] LABS: TRIGLYCERIDES 165 MG/DL (<150); VLDL CHOLESTEROL 33 MG/DL (5-40)
[2022-01-07 12:25] LABS: CHOLESTEROL 135 MG/DL (< 200)
[2022-01-07 12:26] LABS: HDL CHOLESTEROL 31 MG/DL (40-60)
[2022-01-07] MEDS: ENOXAPARIN 40 MG/0.4 ML (LOVENOX) SYR SC SCH (13:03)
[2022-01-07 15:59] VITALS: BP 148/76
[2022-01-07] MEDS: GABAPENTIN 100 MG (NEURONTIN) CAP PO SCH (17:12)
[2022-01-07] MEDS: SERTRALINE 50 MG (ZOLOFT) TABLET PO SCH (17:12)
[2022-01-07] MEDS: LORATADINE (CLARITIN) 10 MG TAB PO SCH (17:12)
[2022-01-07] MEDS: SENNA W/DOCUSATE (SENOKOT S) TABLET PO SCH (17:12)
[2022-01-07] MEDS: HYDROcodone/APAP 5 MG/325 MG (LORTAB) TAB PO PRN (17:17)
[2022-01-07] MEDS: traZODone 100 MG (DESYREL) TAB PO SCH (20:09)
[2022-01-07 20:41] VITALS: BP 116/70
[2022-01-07] MEDS ORDERED: VANCOMYCIN INJECTION 1,000 MG in NS (IVPB) 250 ML IV SCH (20:45)
[2022-01-07 21:11] LABS: BASOPHILS # (AUTO) 0.1 10^3/uL (0.0-0.1); BASOPHILS % (AUTO) 0 % (0-10); EOSINOPHILS # (AUTO) 0.4 10^3/uL (0.0-0.3); EOSINOPHILS % (AUTO) 1 % (0-10); HEMATOCRIT 35 % (35-52); HEMOGLOBIN 10.7 g/dL (11.5-16.0); LYMPHOCYTES # (AUTO) 5.2 10^3/uL (1.0-4.0); LYMPHOCYTES % (AUTO) 19 % (12-44); MEAN CORPUSCULAR HEMOGLOBIN 27 pg (25-34); MEAN CORPUSCULAR HGB CONC 31 g/dL (32-36); MEAN CORPUSCULAR VOLUME 86 fL (80-99); MEAN PLATELET VOLUME 9.8 fL (9.0-12.2); MONOCYTES # (AUTO) 1.8 10^3/uL (0.0-1.0); MONOCYTES % (AUTO) 7 % (0-12); NEUTROPHILS # (AUTO) 18.7 10^3/uL (1.8-7.8); NEUTROPHILS % (AUTO) 70 % (42-75); PLATELET COUNT 452 10^3/uL (130-400); WHITE BLOOD COUNT 26.7 10^3/uL (4.3-11.0)
[2022-01-07 21:31] LABS: ABG BASE EXCESS -8.8 MMOL/L (-2.5-2.5); ABG OXYGEN SATURATION 95 % (94-100); ABG PCO2 29 MMHG (35-45); ABG PH 7.35 (7.37-7.43); ABG PO2 71 MMHG (79-93); ABG TCO2 16.5 MMOL/L (21.0-31.0)
[2022-01-07] MEDS: RT-ALBUTEROL SULF 2.5 MG/3 ML PRE-MIX VIAL INH SCH (21:32)
[2022-01-07 21:34] LABS: ALBUMIN 3.3 GM/DL (3.2-4.5); BILIRUBIN,DIRECT 0.2 MG/DL (0.0-0.3); BILIRUBIN,INDIRECT 0.1 MG/DL; BILIRUBIN,TOTAL 0.3 MG/DL (0.1-1.0); CALCIUM 9.3 MG/DL (8.5-10.1); CREATININE SERUM 0.95 MG/DL (0.60-1.30); POTASSIUM 4.3 MMOL/L (3.6-5.0); TOTAL PROTEIN 7.3 GM/DL (6.4-8.2)
[2022-01-07 21:37] LABS: ALLENS TEST YES-POS; INSPIRED O2 2L; PATIENT TEMP 37; VENTILATOR NO
[2022-01-07] MEDS: MEROPENEM 500 MG in NS (IVPB) 100 ML IV SCH (21:45)
[2022-01-07 22:16] LABS: BILIRUBIN,URINE NEGATIVE (NEGATIVE); CLARITY,URINE CLEAR; COLOR,URINE YELLOW; GLUCOSE, URINE (UA) 3+ (NEGATIVE); KETONES,URINE 1+ (NEGATIVE); LEUKOCYTE ESTERASE ,URINE 1+ (NEGATIVE); NITRITE,URINE NEGATIVE (NEGATIVE); PROTEIN,URINE NEGATIVE (NEGATIVE)
[2022-01-07 22:39] LABS: BACTERIA,URINE MODERATE /HPF; HYALINE CASTS, URINE RARE /LPF; RBC,URINE RARE /HPF; SQUAMOUS EPITHELIAL CELL,UR RARE /HPF; YEAST,URINE MODERATE /HPF
[2022-01-07] MEDS: VANCOMYCIN 1250 MG/NS 250 ML IVPB IV SCH ×2 (23:12)
[2022-01-07] MEDS: SODIUM BICARBONATE 650 MG TABLET (NON-FORMULARY) PO SCH (23:12)
[2022-01-08] VITALS (7 sets, daily range): BP systolic 107–136; BP diastolic 60–79
[2022-01-08] MEDS: RT-ALBUTEROL/IPRATROPIUM 3 ML (DUONEB) VIAL INH SCH ×3 (03:34→19:36)
[2022-01-08] MEDS: MEROPENEM 500 MG in NS (IVPB) 100 ML IV SCH ×4 (03:40→23:25)
[2022-01-08] MEDS: inSUlin ASPART (NovoLOG) 1 UNIT/0.01 ML (CHARGE PER UNIT) SC SCH ×4 (05:24→22:40)
[2022-01-08 05:55] LABS: BASOPHILS # (AUTO) 0.1 10^3/uL (0.0-0.1); BASOPHILS % (AUTO) 1 % (0-10); EOSINOPHILS # (AUTO) 0.5 10^3/uL (0.0-0.3); EOSINOPHILS % (AUTO) 2 % (0-10); HEMATOCRIT 32 % (35-52); LYMPHOCYTES # (AUTO) 4.2 10^3/uL (1.0-4.0); LYMPHOCYTES % (AUTO) 17 % (12-44); MEAN CORPUSCULAR HEMOGLOBIN 27 pg (25-34); MEAN CORPUSCULAR HGB CONC 31 g/dL (32-36); MEAN CORPUSCULAR VOLUME 87 fL (80-99); MEAN PLATELET VOLUME 9.6 fL (9.0-12.2); MONOCYTES # (AUTO) 1.8 10^3/uL (0.0-1.0); MONOCYTES % (AUTO) 7 % (0-12); NEUTROPHILS # (AUTO) 18.5 10^3/uL (1.8-7.8); NEUTROPHILS % (AUTO) 72 % (42-75); PLATELET COUNT 377 10^3/uL (130-400); WHITE BLOOD COUNT 25.5 10^3/uL (4.3-11.0)
[2022-01-08 06:05] LABS: ALBUMIN 3.1 GM/DL (3.2-4.5); POTASSIUM 4.9 MMOL/L (3.6-5.0)
[2022-01-08 06:06] LABS: CALCIUM 8.8 MG/DL (8.5-10.1)
[2022-01-08 06:08] LABS: TOTAL PROTEIN 6.4 GM/DL (6.4-8.2)
[2022-01-08 06:09] LABS: BILIRUBIN,TOTAL 0.3 MG/DL (0.1-1.0)
[2022-01-08 06:11] LABS: CREATININE SERUM 0.9 MG/DL (0.60-1.30)
[2022-01-08] MEDS: RT-ALBUTEROL SULF 2.5 MG/3 ML PRE-MIX VIAL INH SCH ×3 (07:32→19:37)
[2022-01-08] MEDS: LEVOTHYROXINE 25 MCG (LEVOTHROID) TAB PO SCH (08:49)
[2022-01-08] MEDS: KCL 20 MEQ TAB (K-DUR) PO SCH ×3 (08:50→20:15)
[2022-01-08] MEDS: PANTOPRAZOLE 40 MG (PROTONIX) TAB PO SCH (08:50)
[2022-01-08] MEDS: OXYBUTYNIN (DITROPAN) 5 MG TAB PO SCH ×2 (08:50→20:15)
[2022-01-08] MEDS: LACTOBACILLUS ACIDOPHILUS (PROBIOTIC) CAPSULE PO SCH ×2 (08:50→20:15)
[2022-01-08] MEDS: SENNOSIDES 8.6 MG (SENOKOT) TAB PO SCH ×2 (08:50→20:15)
[2022-01-08] MEDS: MAGNESIUM OXIDE (MAG-OX)400 MG TAB PO SCH (08:50)
[2022-01-08] MEDS: EMPAGLIFLOZIN 10 MG TABLET (JARDIANCE) PO SCH (08:50)
[2022-01-08] MEDS: CYCLOBENZAPRINE 10 MG (FLEXERIL) TAB PO SCH ×3 (08:50→23:22)
[2022-01-08] MEDS: LORazepam 0.5 MG (ATIVAN) TABLET PO SCH (08:50)
[2022-01-08] MEDS: ASPIRIN E.C. 81 MG (ECOTRIN) TAB PO SCH (08:50)
[2022-01-08] MEDS: DOCUSATE SODIUM 100 MG (COLACE) CAP PO SCH ×2 (08:50→20:15)
[2022-01-08] MEDS: SODIUM BICARBONATE 650 MG TABLET (NON-FORMULARY) PO SCH ×3 (08:50→20:15)
[2022-01-08] MEDS: FLUTICASONE NASAL SPRAY (FLONASE) 16 GM BTL NS SCH (08:51)
[2022-01-08] MEDS: MICONAZOLE 2% POWDER (DESENEX AF) 90 GM TOP SCH ×2 (08:53→20:17)
[2022-01-08] MEDS: MICONAZOLE 2% POWDER (DESENEX AF) 90 GM TP PRN (08:53)
--- NOTE | 2022-01-08 10:18 | Cardiology Progress Note ---
Progress Note-Cardiology Events since last exam Date Seen by Provider: Jan 08, 2022 Time Seen by Provider: 10:17 Events since last exam I am following her due to history of coronary artery disease and probable ch ronic heart failure with preserved ejection fraction. Today she still has general malaise. She states she does not feel well but cannot give me any specific complaints other than her throat is dry. She denies chest pain, dyspnea at rest, palpitations, syncope, or ankle edema. Certain portions of this document may have been dictated utilizing voice recognition technology. Inherent to this technology, typographical and grammatical errors may exist. As much as I am diligent to identify and correct these mistakes, some errors may remain in the document. Vitals Last set of Vitals Signs Vital Signs 01/06/22 01/08/22 11:17 11:00 Temp 36.1 Pulse 88 Resp 20 B/P (MAP) 117/70 (86) Pulse Ox 98 O2 Delivery Nasal Cannula O2 Flow Rate 4.00 FiO2 2 Labs Labs Laboratory Tests 01/07/22 20:45 01/08/22 05:35 Exam Vital Signs Vital Signs Date Time Temp Pulse Resp B/P (MAP) Pulse Ox O2 Delivery O2 Flow Rate FiO2 01/08/22 11:00 36.1 88 20 117/70 (86) 98 Nasal Cannula 4.00 01/06/22 11:17 2 Physical Exam General: Alert. No acute distress. Eye: No xanthelasma. HENT: Normocephalic. Neck: Jugular venous pressure does not appear elevated. Respiratory: Lungs are clear to auscultation. Respirations are non-labored. Breath sounds are equal. Symmetrical chest wall expansion. Cardiovascular: Normal rate. Regular rhythm. No murmur. No gallop. No edema. Gastrointestinal: Soft. Normal bowel sounds. Skin: Warm. Dry. Neurologic: Alert and oriented to person, place, time. Cranial nerves 3-11 grossly intact. Psychiatric: Cooperative. Appropriate mood & affect. Labs Laboratory Tests Test 01/07/22 15:38 01/07/22 20:13 01/07/22 20:45 01/07/22 21:20 Range/Units Glucometer 191 H 117 H 70-110 MG/DL White Blood Count 26.7 H 4.3-11.0 10^3/uL Red Blood Count 4.03 3.80-5.11 10^6/uL Hemoglobin 10.7 #L 11.5-16.0 g/dL Hematocrit 35 35-52 % Mean Corpuscular Volume 86 80-99 fL Mean Corpuscular Hemoglobin 27 25-34 pg Mean Corpuscular Hemoglobin Concent 31 L 32-36 g/dL Red Cell Distribution Width 14.6 H 10.0-14.5 % Platelet Count 452 H 130-400 10^3/uL Mean Platelet Volume 9.8 9.0-12.2 fL Immature Granulocyte % (Auto) 2 % Neutrophils (%) (Auto) 70 42-75 % Lymphocytes (%) (Auto) 19 12-44 % Monocytes (%) (Auto) 7 0-12 % Eosinophils (%) (Auto) 1 0-10 % Basophils (%) (Auto) 0 0-10 % Neutrophils # (Auto) 18.7 H 1.8-7.8 10^3/uL Lymphocytes # (Auto) 5.2 H 1.0-4.0 10^3/uL Monocytes # (Auto) 1.8 H 0.0-1.0 10^3/uL Eosinophils # (Auto) 0.4 H 0.0-0.3 10^3/uL Basophils # (Auto) 0.1 0.0-0.1 10^3/uL Immature Granulocyte # (Auto) 0.6 H 0.0-0.1 10^3/uL Sodium Level 133 L 135-145 MMOL/L Potassium Level 4.3 3.6-5.0 MMOL/L Chloride Level 101 98-107 MMOL/L Carbon Dioxide Level 15 L 21-32 MMOL/L Anion Gap 17 H 5-14 MMOL/L Blood Urea Nitrogen 12 7-18 MG/DL Creatinine 0.95 0.60-1.30 MG/DL Estimat Glomerular Filtration Rate 61 BUN/Creatinine Ratio 13 Glucose Level 117 H 70-105 MG/DL Lactic Acid Level 1.73 0.50-2.00 MMOL/L Calcium Level 9.3 8.5-10.1 MG/DL Total Bilirubin 0.3 0.1-1.0 MG/DL Direct Bilirubin 0.2 0.0-0.3 MG/DL Indirect Bilirubin 0.1 MG/DL Aspartate Amino Transf (AST/SGOT) 34 5-34 U/L Alanine Aminotransferase (ALT/SGPT) 32 0-55 U/L Alkaline Phosphatase 72 40-136 U/L Total Protein 7.3 6.4-8.2 GM/DL Albumin 3.3 3.2-4.5 GM/DL Procalcitonin 6.44 H <0.10 NG/ML Blood Gas Puncture Site RIGHT RADIAL Blood Gas Patient Temperature 37 Arterial Blood pH 7.35 L 7.37-7.43 Arterial Blood Partial Pressure CO2 29 L 35-45 MMHG Arterial Blood Partial Pressure O2 71 L 79-93 MMHG Arterial Blood HCO3 16 *L 23-27 MMOL/L Arterial Blood Total CO2 16.5 L 21.0-31.0 MMOL/L Arterial Blood Oxygen Saturation 95 94-100 % Arterial Blood Base Excess -8.8 L -2.5-2.5 MMOL/L Vaughn Test YES-POS Blood Gas Ventilator Setting NO Blood Gas Inspired Oxygen 2L Test 01/07/22 22:05 01/08/22 05:18 01/08/22 05:35 01/08/22 11:14 Range/Units Urine Color YELLOW Urine Clarity CLEAR Urine pH 6.0 5-9 Urine Specific [place] <=1.005 1.016-1.022 Urine Protein NEGATIVE NEGATIVE Urine Glucose (UA) 3+ H NEGATIVE Urine Ketones 1+ H NEGATIVE Urine Nitrite NEGATIVE NEGATIVE Urine Bilirubin NEGATIVE NEGATIVE Urine Urobilinogen 0.2 < = 1.0 MG/DL Urine Leukocyte Esterase 1+ H NEGATIVE Urine RBC (Auto) TRACE-I H NEGATIVE Urine RBC RARE /HPF Urine WBC 2-5 /HPF Urine Squamous Epithelial Cells RARE /HPF Urine Crystals NONE /LPF Urine Bacteria MODERATE H /HPF Urine Casts PRESENT /LPF Urine Hyaline Casts RARE /LPF Urine Mucus SMALL H /LPF Urine Yeast MODERATE H /HPF Urine Culture Indicated YES Glucometer 117 H 191 H 70-110 MG/DL White Blood Count 25.5 H 4.3-11.0 10^3/uL Red Blood Count 3.72 L 3.80-5.11 10^6/uL Hemoglobin 10.0 L 11.5-16.0 g/dL Hematocrit 32 L 35-52 % Mean Corpuscular Volume 87 80-99 fL Mean Corpuscular Hemoglobin 27 25-34 pg Mean Corpuscular Hemoglobin Concent 31 L 32-36 g/dL Red Cell Distribution Width 14.7 H 10.0-14.5 % Platelet Count 377 130-400 10^3/uL Mean Platelet Volume 9.6 9.0-12.2 fL Immature Granulocyte % (Auto) 2 % Neutrophils (%) (Auto) 72 42-75 % Lymphocytes (%) (Auto) 17 12-44 % Monocytes (%) (Auto) 7 0-12 % Eosinophils (%) (Auto) 2 0-10 % Basophils (%) (Auto) 1 0-10 % Neutrophils # (Auto) 18.5 H 1.8-7.8 10^3/uL Lymphocytes # (Auto) 4.2 H 1.0-4.0 10^3/uL Monocytes # (Auto) 1.8 H 0.0-1.0 10^3/uL Eosinophils # (Auto) 0.5 H 0.0-0.3 10^3/uL Basophils # (Auto) 0.1 0.0-0.1 10^3/uL Immature Granulocyte # (Auto) 0.4 H 0.0-0.1 10^3/uL Sodium Level 134 L 135-145 MMOL/L Potassium Level 4.9 3.6-5.0 MMOL/L Chloride Level 105 98-107 MMOL/L Carbon Dioxide Level 14 L 21-32 MMOL/L Anion Gap 15 H 5-14 MMOL/L Blood Urea Nitrogen 11 7-18 MG/DL Creatinine 0.90 0.60-1.30 MG/DL Estimat Glomerular Filtration Rate 65 BUN/Creatinine Ratio 12 Glucose Level 110 H 70-105 MG/DL Calcium Level 8.8 8.5-10.1 MG/DL Corrected Calcium 9.5 8.5-10.1 MG/DL Total Bilirubin 0.3 0.1-1.0 MG/DL Aspartate Amino Transf (AST/SGOT) 27 5-34 U/L Alanine Aminotransferase (ALT/SGPT) 25 0-55 U/L Alkaline Phosphatase 53 40-136 U/L Total Protein 6.4 6.4-8.2 GM/DL Albumin 3.1 L 3.2-4.5 GM/DL Radiology ECHOCARDIOGRAM (01/08/2022): 1. Left ventricle: The cavity size is normal. Wall thickness is normal. Systolic function is moderately reduced. The estimated ejection fraction is 30-35%. Moderate diffuse hypokinesis. Features are consistent with a pseudonormal left ventricular filling pattern, with concomitant abnormal relaxation and increased filling pressure (grade 2 diastolic dysfunction). 2. Right ventricle: The cavity size is normal. Systolic function is mildly reduced. TAPSE 1.3 cm. 3. Aortic valve: There is mild aortic valve sclerosis. There is mild to moderate aortic regurgitation with a pressure halftime of 447 ms. 4. Pulmonary arteries: The estimated pulmonary artery systolic pressure is 31 mmHg assuming a right atrial pressure 5 mmHg. Diagnosis/Problems Diagnosis/Problems (1) Acute on chronic HFrEF (heart failure with reduced ejection fraction) Assessment & Plan: Her echocardiogram from 01/08 shows moderate left ventricular systolic dysfunction. She has been taking metoprolol succinate and furosemide at home. I do not have a record of her previous ejection fraction from her outside escrow secretary. She did receive volume resuscitation when she had sepsis. She does not appear to have significant peripheral edema or evidence of pulmonary vascular congestion on her chest x-rays. She does have chronic dyspnea possibly related to some component of underlying lung disease. I have restarted her oral Lasix. She should continue metoprolol succinate. I will also start low-dose lisinopril. I am not sure if she would tolerate E ntresto due to somewhat low blood pressures. (2) Cardiomyopathy Assessment & Plan: She has moderate left ventricular systolic dysfunction as noted on today's echocardiogram. She had already been on metoprolol succinate at home. I will add low-dose lisinopril. This will need to be followed by her regular escrow secretary following discharge. I did put an order for the staff to get her an appointment with her regular escrow secretary. (3) Coronary artery disease without angina pectoris Assessment & Plan: She is not having any angina at this point in time. Continue aspirin, beta-ana, and statin medication. (4) Primary hypertension Assessment & Plan: She was having hypotension while she was septic. Her blood pressures are now improved. I ordered Metoprolol succinate which she was taking at home. As above, I have also added low-dose lisinopril due to the card iomyopathy. (5) Mixed hyperlipidemia Assessment & Plan: Continue statin. (6) Chronic respiratory failure with hypoxia Assessment & Plan: Etiology unclear. She wears oxygen at home which has been continued. CHARLY MOE JR, MD Jan 08, 2022 10:18
[2022-01-08] MEDS ORDERED: FUROSEMIDE 40 MG (LASIX) TAB PO NR (10:29)
--- NOTE | 2022-01-08 11:50 | Physical Therapy Daily Note ---
PT Daily Note-Current Subjective Patient presented laying in bed and agreed to transfer to the chair. Mental Status Patient Orientation: Person, Place, Time Attachments: Oxygen Transfers SCALE: Activities may be completed with or without assistive devices. 0-Hehjqnpbrj-fgmtevt completes the activity by him/herself with no assistance from a helper. 5-Set-up or Clean-up Assistance-helper sets up or cleans up; patient completes activity. [place] assists only prior to or following the activity. 4-Supervision or Touching Assistance-helper provides verbal cues and/or touching/steadying and/or contact guard assistance as patient completes activity. Assistance may be provided throughout the activity or intermittently. 3-Partial/Moderate Assistance-helper does LESS THAN HALF the effort. [place] lifts, holds or supports trunk or limbs, but provides less than half the effort. 2-Substantial/Maximal Assistance-helper does MORE THAN HALF the effort. [place] lifts or holds trunk or limbs and provides more than half the effort. 7-Rarbgpltz-btqodj does ALL the effort. Patient does none of the effort to complete the activity. Or, the assistance of 2 or more helpers is required for the patient to complete the activity. If activity was not attempted, code reason: 7-Patient Refused. 9-Not Applicable-not attempted and the patient did not perform the activity before the current illness, exacerbation or injury. 10-Not Attempted due to Environmental Limitations-(lack of equipment, weather restraints, etc.). 88-Not Attempted due to Medical Conditions or Safety Concerns. Lying to Sitting/Side of Bed(Q: 3 Sit to Stand (QC): 3 Chair/Yvl-dx-Gitne Xfer(QC): 3 Toilet Transfer (QC): 3 Patient required min assist for all transfers. Gait Training Distance: 5' Gait Assistive Device: FWW Patient required min assist and FWW for ambulation. Patient ambulated to the commode then to her chair. Patient required frequent cues for safety while ambulating. Assessment Patient transferred from her bed to the commode then to the chair. Patient required min assist for ambulation and transfers. Patient reported fatigue after getting to the chair. Patient left post tx. in her chair with nurse call, phone, and all needs met. PT Half-Way Goals Half-Way Goals PT Half-Way Goals Time Frame: Jan 13, 2022 Roll Left & Right (QC): 4 Sit to Lying (QC): 4 Lying-Sitting on Side/Bed(QC): 4 Sit to Stand (QC): 4 Chair/Ofd-ii-Ecuuw Xfer(QC): 4 Toilet Transfer (QC): 4 Does the Patient Walk: Yes Walk 10 feet (QC): 4 PT Plan Problem List Problem List: Activity Tolerance, Functional Strength, Safety, Balance, Gait, Transfer, Bed Mobility, ROM Treatment/Plan Treatment Plan: Continue Plan of Care Treatment Plan: Bed Mobility, Education, Functional Activity Jennifer, Functional Strength, Gait, Safety, Therapeutic Exercise, Transfers Treatment Duration: Jan 13, 2022 Frequency: 6 times per week Estimated Hrs Per Day: .25 hour per day Time/GCodes Time In: 1028 Time Out: 1040 Total Billed Treatment Time: 12 Total Billed Treatment 1 Visit FA 12 min HAMMAD BROWN PT Jan 08, 2022 11:50
--- NOTE | 2022-01-08 13:56 | Occupational Ther Daily Note ---
OT Current Status-Daily Note Subjective Pt alert, lying in bed. Pt c/o pain at buttocks, stating that she had sat up for a long time and it hurt. Pt agrees to therapy. Mental Status/Objective Patient Orientation: Person, Confused Attachments: Colostomy/Ileostomy, IV ADL-Treatment After set up, pt completed oral care by self. Pt declines getting OOB or doing any OOB tasks stating that her buttocks hurt from sitting up. Pt assisted with scooting up in bed with B LE and FOB inclined to make scooting up in bed easier. Pt's B UE shldr flex ~90* when asked pt to raise B UE. After therapy, pt lying in bed on R side to take pressure off of buttocks. All needs met in room, call light/phone in reach. Therapy Code Descriptions/Definitions Functional Sarah Measure: 0=Not Assessed/NA 4=Minimal Assistance 1=Total Assistance 5=Supervision or Setup 2=Maximal Assistance 6=Modified [place] 3=Moderate Assistance 7=Complete IndependenceSCALE: Activities may be completed with or without assistive devices. 9-Knmkhbqvhc-hhpbilh completes the activity by him/herself with no assistance from a helper. 5-Set-up or Clean-up Assistance-helper sets up or cleans up; patient completes activity. [place] assists only prior to or following the activity. 4-Supervision or Touching Assistance-helper provides verbal cues and/or touching/steadying and/or contact guard assistance as patient completes activity. Assistance may be provided throughout the activity or intermittently. 3-Partial/Moderate Assistance-helper does LESS THAN HALF the effort. [place] lifts, holds or supports trunk or limbs, but provides less than half the effort. 2-Substantial/Maximal Assistance-helper does MORE THAN HALF the effort. [place] lifts or holds trunk or limbs and provides more than half the effort. 4-Wtgfzetoo-zyritj does ALL the effort. Patient does none of the effort to complete the activity. Or, the assistance of 2 or more helpers is required for the patient to complete the activity. If activity was not attempted, code reason: 7-Patient Refused. 9-Not Applicable-not attempted and the patient did not perform the activity before the current illness, exacerbation or injury. 10-Not Attempted due to Environmental Limitations-(lack of equipment, weather restraints, etc.). 88-Not Attempted due to Medical Conditions or Safety Concerns. Oral Hygiene (QC): 5 OT Residential Goals Gyroscope Technician Goals Time Frame: Jan 19, 2022 Eating (QC): 6 Oral Hygiene (QC): 6 Toileting Hygiene (QC): 4 Shower/Bathe Self (QC): 3 Upper Body Dressing (QC): 5 Lower Body Dressing (QC): 3 On/Off Footwear (QC): 2 Additional Goals: 1-Demonstrate ADL Tasks, 2-Verbalize Understanding, 3- ImproveStrength/Jennifer 1=Demonstrate adherence to instructed precautions during ADL tasks. 2=Patient will verbalize/demonstrate understanding of assistive devices/modifications for ADL. 3=Patient will improve strength/tolerance for activity to enable patient to perform ADL's. OT Education/Plan Problem List/Assessment Assessment: Decreased Activ Tolerance, Decreased Safety Aware, Decreased UE Strength, Impaired Bed Mobility, Impaired Cognition, Impaired Self-Care Skills, Restricted Funct UE ROM Discharge Recommendations Plan/Recommendations: Continue POC Treatment Plan/Plan of Care Patient would benefit from OT for education, treatment and training to promote independence in ADL's, mobility, safety and/or upper extremity function for ADL's. Plan of Care: ADL Retraining, Functional Mobility, UE Funct Exercise/Act Treatment Duration: Jan 19, 2022 Frequency: 3 times per week (3-5 times per week) Rehab Potential: Guarded Time/GCodes Start Time: 13:30 Stop Time: 13:47 Total Time Billed (hr/min): 17 Billed Treatment Time 1 visit-ADL 1 (17 min) FABIÁN PETERS Jan 08, 2022 13:56
[2022-01-08] MEDS: ENOXAPARIN 40 MG/0.4 ML (LOVENOX) SYR SC SCH (14:26)
[2022-01-08] MEDS ORDERED: lisINopril 5 MG (PRINIVIL) TABLET PO NR (14:30)
[2022-01-08] MEDS: SERTRALINE 50 MG (ZOLOFT) TABLET PO SCH (18:33)
[2022-01-08] MEDS: LORATADINE (CLARITIN) 10 MG TAB PO SCH (18:33)
[2022-01-08] MEDS: GABAPENTIN 100 MG (NEURONTIN) CAP PO SCH (18:33)
[2022-01-08] MEDS: SENNA W/DOCUSATE (SENOKOT S) TABLET PO SCH (18:33)
--- NOTE | 2022-01-08 19:47 | Progress Note - Hospitalist ---
Subjective HPI/CC On Admission Date Seen by Provider: Jan 08, 2022 Time Seen by Provider: 10:40 CC: Severe sepsis from UTI HPI: 81 yr old WF, clinic pt of Dr. Navarro, who [facility] [place] [facility]. Pt presented with altered mental status and hypotension. Classified as severe sepsis from UTI. She did receive the severe sepsis IV fluid protocol and was given antibiotics. Currently pt is stable and will be maintained DNR status. She will be moved to the med surg floor. Subjective/Events-last exam She is sitting in her bedside chair. She has no complaints. Focused Exam Lactate Level 01/07/22 20:45: Lactic Acid Level 1.73 Time of Focused Exam: 10:00 Objective Exam Vital Signs Vital Signs Date Time Temp Pulse Resp B/P (MAP) Pulse Ox O2 Delivery O2 Flow Rate FiO2 01/08/22 16:00 35.9 86 20 110/69 (83) 100 Nasal Cannula 4.00 01/06/22 11:17 2 Capillary Refill : Less Than 3 Seconds General Appearance: No Apparent Distress, WD/WN Respiratory: Lungs Clear, No Respiratory Distress Cardiovascular: Regular Rate, Rhythm, No Murmur Gastrointestinal: Normal Bowel Sounds, Soft, Other (colostomy in place) Extremity: Normal Inspection, No Pedal Edema Neurologic/Psychiatric: Alert, Oriented x3, Normal Mood/Affect Skin: Normal Color, Warm/Dry Results/Procedures Lab Laboratory Tests 01/07/22 20:45 01/08/22 05:35 Patient resulted labs reviewed. Assessment/Plan Assessment and Plan Assess & Plan/Chief Complaint Severe sepsis UTI PNA WBC elevated CXR with new infiltrate Procalcitonin trending down Vanc and Merrem T2DM Sliding scale insulin HTN COPD Hypothyroidism Colostomy Continue home meds DVT prophylaxis: Lovenox Diagnosis/Problems Diagnosis/Problems (1) Severe sepsis Status: Acute (2) UTI (urinary tract infection) Status: Acute Qualifiers: Urinary tract infection type: site unspecified Hematuria presence: without hematuria Qualified Codes: N39.0 - Urinary tract infection, site not specified (3) PNA (pneumonia) Status: Acute (4) HTN (hypertension) Status: Chronic (5) T2DM (type 2 diabetes mellitus) Status: Chronic (6) COPD (chronic obstructive pulmonary disease) Status: Chronic (7) Colostomy in place Status: Chronic JACQUELINE MCDANIEL MD Jan 08, 2022 19:46
[2022-01-08] MEDS: traZODone 100 MG (DESYREL) TAB PO SCH (20:15)
[2022-01-08] MEDS ORDERED: [UNRECOGNIZED DRUG - OTHER] TP SCH (21:00)
[2022-01-08] MEDS ORDERED: MUPIROCIN 2% OINT 22 GM (BACTROBAN) TUBE TOP SCH (21:00)
[2022-01-08] MEDS: VANCOMYCIN 1250 MG/NS 250 ML IVPB IV SCH ×2 (22:50)
[2022-01-09 03:09] VITALS: BP 101/59
[2022-01-09] MEDS: inSUlin ASPART (NovoLOG) 1 UNIT/0.01 ML (CHARGE PER UNIT) SC SCH ×2 (06:00→11:41)
[2022-01-09] MEDS: RT-ALBUTEROL SULF 2.5 MG/3 ML PRE-MIX VIAL INH SCH (06:57)
[2022-01-09] MEDS: CYCLOBENZAPRINE 10 MG (FLEXERIL) TAB PO SCH (07:09)
[2022-01-09 07:27] LABS: BASOPHILS # (AUTO) 0.1 10^3/uL (0.0-0.1); BASOPHILS % (AUTO) 0 % (0-10); EOSINOPHILS # (AUTO) 0.8 10^3/uL (0.0-0.3); EOSINOPHILS % (AUTO) 4 % (0-10); HEMATOCRIT 29 % (35-52); HEMOGLOBIN 8.9 g/dL (11.5-16.0); LYMPHOCYTES # (AUTO) 4.4 10^3/uL (1.0-4.0); LYMPHOCYTES % (AUTO) 23 % (12-44); MEAN CORPUSCULAR HEMOGLOBIN 27 pg (25-34); MEAN CORPUSCULAR HGB CONC 31 g/dL (32-36); MEAN CORPUSCULAR VOLUME 87 fL (80-99); MEAN PLATELET VOLUME 9.7 fL (9.0-12.2); MONOCYTES # (AUTO) 1.2 10^3/uL (0.0-1.0); MONOCYTES % (AUTO) 6 % (0-12); NEUTROPHILS # (AUTO) 12.4 10^3/uL (1.8-7.8); NEUTROPHILS % (AUTO) 65 % (42-75); PLATELET COUNT 376 10^3/uL (130-400)
[2022-01-09 07:38] LABS: ALBUMIN 2.8 GM/DL (3.2-4.5); POTASSIUM 4.8 MMOL/L (3.6-5.0)
[2022-01-09 07:39] LABS: CALCIUM 8.2 MG/DL (8.5-10.1)
[2022-01-09 07:40] LABS: TOTAL PROTEIN 5.7 GM/DL (6.4-8.2)
[2022-01-09 07:42] LABS: BILIRUBIN,TOTAL 0.3 MG/DL (0.1-1.0)
[2022-01-09 07:44] LABS: CREATININE SERUM 0.78 MG/DL (0.60-1.30)
[2022-01-09 08:00] VITALS: BP 124/74
[2022-01-09 08:39] LABS: BAND NEUTROPHILS 1 %; BASOPHILS % (MANUAL) 0 %; EOSINOPHILS % (MANUAL) 4 %; LYMPHOCYTES % (MANUAL) 20 %; MONOCYTES % (MANUAL) 3 %; NEUTROPHILS % (MANUAL) 72 %; RBC MORPH NORMAL
[2022-01-09] MEDS ORDERED: FUROSEMIDE 40 MG (LASIX) TAB PO SCH (09:00)
[2022-01-09] MEDS ORDERED: lisINopril 5 MG (PRINIVIL) TABLET PO SCH (09:00)
--- NOTE | 2022-01-09 09:27 | Physical Therapy Daily Note ---
PT Daily Note-Current Subjective Patient presented laying in bed and agreed to move to the chair for breakfast. Mental Status Patient Orientation: Person, Place Attachments: Oxygen (3L NC) Transfers SCALE: Activities may be completed with or without assistive devices. 5-Qqdyyumzek-bssozxk completes the activity by him/herself with no assistance from a helper. 5-Set-up or Clean-up Assistance-helper sets up or cleans up; patient completes activity. [place] assists only prior to or following the activity. 4-Supervision or Touching Assistance-helper provides verbal cues and/or touching/steadying and/or contact guard assistance as patient completes activity. Assistance may be provided throughout the activity or intermittently. 3-Partial/Moderate Assistance-helper does LESS THAN HALF the effort. [place] lifts, holds or supports trunk or limbs, but provides less than half the effort. 2-Substantial/Maximal Assistance-helper does MORE THAN HALF the effort. [place] lifts or holds trunk or limbs and provides more than half the effort. 2-Htnsophsl-sipnaq does ALL the effort. Patient does none of the effort to complete the activity. Or, the assistance of 2 or more helpers is required for the patient to complete the activity. If activity was not attempted, code reason: 7-Patient Refused. 9-Not Applicable-not attempted and the patient did not perform the activity before the current illness, exacerbation or injury. 10-Not Attempted due to Environmental Limitations-(lack of equipment, weather restraints, etc.). 88-Not Attempted due to Medical Conditions or Safety Concerns. Lying to Sitting/Side of Bed(Q: 4 Sit to Stand (QC): 4 Chair/Den-sg-Edlcw Xfer(QC): 4 Patient completed sit to stand transfer and transfer to the chair with CGA and FWW. Patient required cues for hand placement with transfers. Gait Training Distance: 2 steps Gait Assistive Device: FWW Patient ambulated 2 steps to complete bed to chair transfer. Patient ambulated with FWW and CGA. Assessment Patient completed bed mobility and transferred to the bed during therapy session. Patient required cues for safety and hand placement during the transfer. Patient left in her chair post tx with nurse call, phone, and all needs met. PT Fpc Goals Fpc Goals PT Brand Activation Manager Goals Time Frame: Jan 13, 2022 Roll Left & Right (QC): 4 Sit to Lying (QC): 4 Lying-Sitting on Side/Bed(QC): 4 Sit to Stand (QC): 4 Chair/Cex-bb-Cozkd Xfer(QC): 4 Toilet Transfer (QC): 4 Does the Patient Walk: Yes Walk 10 feet (QC): 4 PT Plan Problem List Problem List: Activity Tolerance, Functional Strength, Safety, Balance, Gait, Transfer, Bed Mobility, ROM Treatment/Plan Treatment Plan: Continue Plan of Care Treatment Plan: Bed Mobility, Education, Functional Activity Jennifer, Functional Strength, Gait, Safety, Therapeutic Exercise, Transfers Treatment Duration: Jan 13, 2022 Frequency: 6 times per week Estimated Hrs Per Day: .25 hour per day Time/GCodes Time In: 805 Time Out: 817 Total Billed Treatment Time: 12 Total Billed Treatment 1 Visit FA 12 min HAMMAD BROWN PT Jan 09, 2022 09:27
--- NOTE | 2022-01-09 09:47 | Occupational Ther Daily Note ---
OT Current Status-Daily Note Subjective Pt alert, sitting up in recliner. Pt agrees to therapy. No c/o pain. Mental Status/Objective Patient Orientation: Person, Place, Situation Attachments: Colostomy/Ileostomy, Guo Catheter, IV, Oxygen (3L) ADL-Treatment Nrsg had given pt sponge bath prior to BARNEY coming into room. Pt independent with eating. Pt able to complete own set up of oral care after supplies are gathered. Pt demonstrates WFL B UE AROM during functional tasks. After therapy, pt sitting in recliner with call light/phone in reach. All needs met in room. Therapy Code Descriptions/Definitions Functional [place] Measure: 0=Not Assessed/NA 4=Minimal Assistance 1=Total Assistance 5=Supervision or Setup 2=Maximal Assistance 6=Modified [place] 3=Moderate Assistance 7=Complete IndependenceSCALE: Activities may be completed with or without assistive devices. 5-Rcpfhhpfaz-jlixrjt completes the activity by him/herself with no assistance from a helper. 5-Set-up or Clean-up Assistance-helper sets up or cleans up; patient completes activity. [place] assists only prior to or following the activity. 4-Supervision or Touching Assistance-helper provides verbal cues and/or touching/steadying and/or contact guard assistance as patient completes activity. Assistance may be provided throughout the activity or intermittently. 3-Partial/Moderate Assistance-helper does LESS THAN HALF the effort. [place] lifts, holds or supports trunk or limbs, but provides less than half the effort. 2-Substantial/Maximal Assistance-helper does MORE THAN HALF the effort. [place] lifts or holds trunk or limbs and provides more than half the effort. 8-Hjhfoapbr-kdvvsd does ALL the effort. Patient does none of the effort to complete the activity. Or, the assistance of 2 or more helpers is required for the patient to complete the activity. If activity was not attempted, code reason: 7-Patient Refused. 9-Not Applicable-not attempted and the patient did not perform the activity before the current illness, exacerbation or injury. 10-Not Attempted due to Environmental Limitations-(lack of equipment, weather restraints, etc.). 88-Not Attempted due to Medical Conditions or Safety Concerns. Eating (QC): 6 Oral Hygiene (QC): 5 OT Custodial Goals Custodial Goals Time Frame: Jan 19, 2022 Eating (QC): 6 Oral Hygiene (QC): 6 Toileting Hygiene (QC): 4 Shower/Bathe Self (QC): 3 Upper Body Dressing (QC): 5 Lower Body Dressing (QC): 3 On/Off Footwear (QC): 2 Additional Goals: 1-Demonstrate ADL Tasks, 2-Verbalize Understanding, 3- ImproveStrength/Jennifer 1=Demonstrate adherence to instructed precautions during ADL tasks. 2=Patient will verbalize/demonstrate understanding of assistive devices/modifi cations for ADL. 3=Patient will improve strength/tolerance for activity to enable patient to perform ADL's. OT Education/Plan Problem List/Assessment Assessment: Decreased Activ Tolerance, Decreased UE Strength, Impaired Self- Care Skills Discharge Recommendations Plan/Recommendations: Continue POC Treatment Plan/Plan of Care Patient would benefit from OT for education, treatment and training to promote independence in ADL's, mobility, safety and/or upper extremity function for ADL's. Plan of Care: ADL Retraining, Functional Mobility, UE Funct Exercise/Act Treatment Duration: Jan 19, 2022 Frequency: 3 times per week (3-5 times per week) Rehab Potential: Guarded Time/GCodes Start Time: 09:00 Stop Time: 09:15 Total Time Billed (hr/min): 15 Billed Treatment Time 1 visit-ADL 1 (15 min) FABIÁN PETERS Jan 09, 2022 09:47
[2022-01-09] MEDS: MEROPENEM 500 MG in NS (IVPB) 100 ML IV SCH (10:05)
[2022-01-09] MEDS: LACTOBACILLUS ACIDOPHILUS (PROBIOTIC) CAPSULE PO SCH (10:05)
[2022-01-09] MEDS: FLUTICASONE NASAL SPRAY (FLONASE) 16 GM BTL NS SCH (10:05)
[2022-01-09] MEDS: LEVOTHYROXINE 25 MCG (LEVOTHROID) TAB PO SCH (10:06)
[2022-01-09] MEDS: ASPIRIN E.C. 81 MG (ECOTRIN) TAB PO SCH (10:06)
[2022-01-09] MEDS: MAGNESIUM OXIDE (MAG-OX)400 MG TAB PO SCH (10:07)
[2022-01-09] MEDS: SODIUM BICARBONATE 650 MG TABLET (NON-FORMULARY) PO SCH (10:07)
[2022-01-09] MEDS: ACETAMINOPHEN 325 MG TABLET PO PRN (10:07)
[2022-01-09] MEDS: PANTOPRAZOLE 40 MG (PROTONIX) TAB PO SCH (10:07)
[2022-01-09] MEDS: DOCUSATE SODIUM 100 MG (COLACE) CAP PO SCH (10:08)
[2022-01-09] MEDS: OXYBUTYNIN (DITROPAN) 5 MG TAB PO SCH (10:08)
[2022-01-09] MEDS: LORazepam 0.5 MG (ATIVAN) TABLET PO SCH (10:08)
[2022-01-09] MEDS: KCL 20 MEQ TAB (K-DUR) PO SCH (10:08)
[2022-01-09] MEDS: EMPAGLIFLOZIN 10 MG TABLET (JARDIANCE) PO SCH (10:08)
[2022-01-09] MEDS: SENNOSIDES 8.6 MG (SENOKOT) TAB PO SCH (10:09)
[2022-01-09] MEDS: MICONAZOLE 2% POWDER (DESENEX AF) 90 GM TOP SCH (10:10)
[2022-01-09 12:29] VITALS: BP 124/74
--- NOTE | 2022-01-09 16:39 | Discharge Summary ---
Discharge Summary Hospital Course Problems/Dx: (1) Severe sepsis Status: Acute (2) UTI (urinary tract infection) Status: Acute Qualifiers: Qualified Codes: N39.0 - Urinary tract infection, site not specified (3) PNA (pneumonia) Status: Acute (4) HTN (hypertension) Status: Chronic (5) T2DM (type 2 diabetes mellitus) Status: Chronic (6) COPD (chronic obstructive pulmonary disease) Status: Chronic (7) Colostomy in place Status: Chronic Hospital Course Date of Admission: Jan 03, 2022 at 10:20 Admission Diagnosis : Severe sepsis due to UTI Family Physician/Provider: Josh Navarro MD Date of Discharge: 01/09/22 Discharge Diagnosis: Severe sepsis due to UTI, pneumonia Hospital Course: Sarah Morales is a 81 year old female with H HTN, T2DM, COPD, colostomy, who p resented with altered mental status and was admitted with severe sepsis due to UTI. She was started on IV antibiotics and began to improve. She developed worsening leukocytosis and chest xray showed a developing infiltrate. She was started back on broad spectrum antibiotics and began to improve. [facility]. Labs and Pending Lab Test: Laboratory Tests 01/08/22 20:46: Glucometer 121H 01/09/22 05:56: Glucometer 89 01/09/22 07:20: White Blood Count 19.0H, Red Blood Count 3.34L, Hemoglobin 8.9L, Hematocrit 29L, Mean Corpuscular Volume 87, Mean Corpuscular Hemoglobin 27, Mean Corpuscular Hemoglobin Concent 31L, Red Cell Distribution Width 14.9H, Platelet Count 376, M moustapha Platelet Volume 9.7, Immature Granulocyte % (Auto) 2, Neutrophils (%) (Auto) 65, Lymphocytes (%) (Auto) 23, Monocytes (%) (Auto) 6, Eosinophils (%) (Auto) 4, Basophils (%) (Auto) 0, Neutrophils # (Auto) 12.4H, Lymphocytes # (Auto) 4.4H, Monocytes # (Auto) 1.2H, Eosinophils # (Auto) 0.8H, Basophils # (Auto) 0.1, Immature Granulocyte # (Auto) 0.3H, Neutrophils % (Manual) 72, Lymphocytes % (Manual) 20, Monocytes % (Manual) 3, Eosinophils % (Manual) 4, Basophils % (Manual) 0, Band Neutrophils 1, Blood Morphology Comment NORMAL, Sodium Level 137, Potassium Level 4.8, Chloride Level 103, Carbon Dioxide Level 21, Anion Gap 13, Blood Urea Nitrogen 4L, Creatinine 0.78, Estimat Glomerular Filtration Rate 77, BUN/Creatinine Ratio 5, Glucose Level 99, Calcium Level 8.2L, Corrected Calcium 9.2, Total Bilirubin 0.3, Aspartate Amino Transf (AST/SGOT) 19, Alanine Aminotransferase (ALT/SGPT) 20, Alkaline Phosphatase 50, Total Protein 5.7L, Albumin 2.8L, Procalcitonin 2.02H 01/09/22 11:11: Glucometer 122H 01/09/22 15:37: Glucometer 136H Microbiology 01/07/22 Blood Culture - Preliminary, Resulted No growth 01/07/22 Urine Culture - Final, Complete NO GROWTH Home Meds Active Reported Chloraseptic (Phenol) 20 Ml [place] 2 Sprays MM Q4H PRN Co Q-10 (Ubidecarenone) 50 Mg Capsule 50 Mg PO DAILY Ondansetron HCl 4 Mg Tablet 4 Mg PO Q8H PRN Remedy Antifungal (Miconazole Nitrate) 85 Gm Powder 1 Applic TP Q8H PRN APPLY TO MARLENE AREA AND UNDER BOTH BREASTS Muscle Rub Ultra Str Cream (Methyl Salicylate/Menth/Camph) 114 Gm Cream..g. 1 Applic TP Q6H PRN APPLY TO LOWER BACK Remedy Antifungal (Miconazole Nitrate) 118 Ml Cream.ml. 1 Applic TP BID APPLY TO GROIN FOR 14 DAYS STARTING 05-17-2021 Ketoconazole 15 Gm Cream..g. 1 Applic TOP BID PRN APPLY UNDER BREAST AND GROIN Vitamin C (Ascorbate Calcium) 500 Mg Tablet 500 Mg PO DAILY Acetaminophen 8 Hour (Acetaminophen) 650 Mg Tablet.er 650 Mg PO Q8H PRN Vitamin D3 (Cholecalciferol (Vitamin D3)) 25 Mcg Capsule 50 Mcg PO DAILY Ativan (Lorazepam) 0.5 Mg Tablet 0.5 Mg PO DAILY Oxybutynin Chloride ER (Oxybutynin Chloride) 10 Mg Tab.er.24 10 Mg PO DAILY Niferex Tablet (Iron Ag,Ps/C/Fa6/B12/Zn/SA/Sto) 1 Each Tablet 1 Each PO DAILY Metoprolol Succinate 25 Mg Tab.er.24h 25 Mg PO DAILY HOLD IF SBP <100 OR PULSE <600 Lactobacillus 1 Million Cfu Tb (L. Acidophilus/L.bulgaricus) 1 Each Tablet 1 Each PO BID Jardiance (Empagliflozin) 25 Mg Tablet 25 Mg PO DAILY Hydrocodone-Acetamin 5-325 mg (Hydrocodone/Acetaminophen) 1 Each Tablet 1-2 Each PO Q4H PRN Polyethylene Glycol 3350 17 Gm Powd.pack 17 Gm PO Q12H PRN Estrace Cream (Estradiol) 42.5 Gm Cream.appl 1 Gm VG MON,WE,FR @HS Cyclobenzaprine HCl 5 Mg Tablet 10 Mg PO Q8H PRN B-12 (Cyanocobalamin (Vitamin B-12)) 500 Mcg Tablet 500 Mcg PO Q48H Atorvastatin Calcium 20 Mg Tablet 20 Mg PO 1800 Aspercreme 10% Cream (Trolamine Salicylate/Aloe Vera) 35.4 Gm Cream..g. 1 Applic TP Q8H PRN APPLY TO LOWER BACK Proair Hfa (Albuterol Sulfate) 1 Puff Puff 2 Puff IH Q4H PRN Furosemide 40 Mg Tablet 40 Mg PO DAILY Bisacodyl 5 Mg Tablet.dr 10 Mg PO DAILY PRN Zyrtec (Cetirizine HCl) 10 Mg Tablet 5 Mg PO 1800 TAKES 1/2 (10MG) TABLET Biofreeze (Menthol) 118 Ml Gel..ml. 1 Applic TP Q6H PRN APPLY TO LOWER BACK Trazodone HCl 100 Mg Tablet 100 Mg PO HS Synthroid (Levothyroxine Sodium) 25 Mcg Tablet 25 Mcg PO DAILY Sertraline HCl 50 Mg Tablet 50 Mg PO 1800 Senna S Tablet (Sennosides/Docusate Sodium) 1 Each Tablet 3 Ea PO 1800 Milk of Magnesia (Magnesium Hydroxide) 400 Mg/5 Ml Oral.susp 30 Ml PO DAILY PRN Magox 400 (Magnesium Oxide) 400 Mg Tablet 400 Mg PO DAILY Gabapentin 100 Mg Capsule 200 Mg PO 1800 TAKES 2 (100MG) CAPSULES Fluticasone Propionate 16 Gm [place].susp 1 [place] NSEACH DAILY Assessment/Pt Instructions Transferred to swing bed Discharge Planning: <30 minutes discharge planning Discharge Instructions Discharge Diet: No Restrictions Activity as Tolerated: Yes Discharge Physical Examination Vital Signs Vital Signs Date Time Temp Pulse Resp B/P (MAP) Pulse Ox O2 Delivery O2 Flow Rate FiO2 01/09/22 12:29 36.0 93 20 124/74 98 Nasal Cannula 3.00 01/06/22 11:17 2 General Appearance: No Apparent Distress, Chronically ill Respiratory: Lungs Clear, No Respiratory Distress Cardiovascular: Regular Rate, Rhythm, No Murmur Gastrointestinal: Normal Bowel Sounds, Soft, Other (colostomy) Extremity: Normal Inspection, No Pedal Edema Skin: Normal Color, Warm/Dry Neurologic/Psychiatric: Alert, Normal Mood/Affect Allergies: Coded Allergies: Fish Containing Products (Unverified Allergy, Unknown, 03/07/21) iodine (Unverified Allergy, Unknown, 03/07/21) peanut (Unverified Allergy, Unknown, 03/07/21) shrimp (Verified Allergy, Unknown, 04/30/19) Uncoded Allergies: POPCORN (Allergy, Unknown, 03/07/21) Discharge Summary Date of Admission Jan 03, 2022 at 10:20 Date of Discharge Jan 09, 2022 at 12:05 Discharge Date: Jan 09, 2022 Discharge Time: 12:05 Admission Diagnosis Severe sepsis due to UTI Discharge Diagnosis Severe sepsis UTI PNA (1) Severe sepsis Status: Acute (2) UTI (urinary tract infection) Status: Acute Qualifiers: Qualified Codes: N39.0 - Urinary tract infection, site not specified (3) PNA (pneumonia) Status: Acute (4) HTN (hypertension) Status: Chronic (5) T2DM (type 2 diabetes mellitus) Status: Chronic (6) COPD (chronic obstructive pulmonary disease) Status: Chronic (7) Colostomy in place Status: Chronic JACQUELINE MCDANIEL MD Jan 09, 2022 16:39
== END 2022-01-09 12:05 | disposition swing bed (61) | DRG 871 ==
LOC: EDUNIT# 08:16 → ER 08:17 → 4TH 10:20
PROVIDERS: ADMIT Internal Medicine; ATTEND Internal Medicine
DX: A41.9 Sepsis, unspecified organism (principal); J18.9 Pneumonia, unspecified organism; G93.41 Metabolic encephalopathy; N39.0 Urinary tract infection, site not specified; I42.9 Cardiomyopathy, unspecified; I50.32 Chronic diastolic (congestive) heart failure; J96.11 Chronic respiratory failure with hypoxia; N32.1 Vesicointestinal fistula; Z66 Do not resuscitate; R65.20 Severe sepsis without septic shock; I11.0 Hypertensive heart disease with heart failure; N19 Unspecified kidney failure; E11.65 Type 2 diabetes mellitus with hyperglycemia; Z79.84 Long term (current) use of oral hypoglycemic drugs; J44.9 Chronic obstructive pulmonary disease, unspecified; I25.10 Atherosclerotic heart disease of native coronary artery without angina pectoris; K57.90 Diverticulosis of intestine, part unspecified, without perforation or abscess without bleeding; E03.9 Hypothyroidism, unspecified; F41.9 Anxiety disorder, unspecified; E87.6 Hypokalemia; G47.00 Insomnia, unspecified; I25.2 Old myocardial infarction; M19.91 Primary osteoarthritis, unspecified site; Z99.81 Dependence on supplemental oxygen; Z93.3 Colostomy status; Z95.1 Presence of aortocoronary bypass graft; Z88.8 Allergy status to other drugs, medicaments and biological substances; Z91.010 Allergy to peanuts; Z91.013 Allergy to seafood; Z83.3 Family history of diabetes mellitus; Z82.49 Family history of ischemic heart disease and other diseases of the circulatory system
CPT/HCPCS: 36415; 51702; 71045; 80048; 80053; 80061; 80076; 80202; 81000; 82805; 82947; 83605; 83735; 84145; 85007; 85025; 85027; 85610; 85730; 86141; 87040; 87077; 87088; 87186; 93005; 93306; 94640; 94760

== ENCOUNTER 2022-01-09 11:35 | Inpatient (IN) | payer MEDICARE, MEDICAID ==
[~2022-01-09] VITALS: Ht 167 cm; Wt 54.4 kg
[~2022-01-09 11:35] MED LIST changes: +MICO130A6 TP; +ONDA-105 PO; +PHEN20SP2 MM; +UBID50CA21 PO
[2022-01-09] MEDS ORDERED: KETOCONAZOLE 2% CREAM 15 GM (NIZORAL) TOP PRN (12:15)
[2022-01-09] MEDS ORDERED: LORazepam INJ 2 MG/ML (ATIVAN) VIAL IVP PRN (12:15)
[2022-01-09] MEDS ORDERED: TROLAMINE (ASPERCREME) 10% CR 90 GM TUBE TOP PRN (12:15)
[2022-01-09] MEDS ORDERED: meTOprolol TARTRATE 25 MG (LOPRESSOR) TABLET PO PRN (12:15)
[2022-01-09] MEDS ORDERED: CHLORASEPTIC SPRAY 177 ML LIQUID MM PRN (12:15)
[2022-01-09] MEDS ORDERED: MEROPENEM 500 MG in NS (IVPB) 100 ML IV SCH (12:15)
[2022-01-09] MEDS ORDERED: ALPRAZolam 0.25 MG (XANAX) TAB PO PRN (12:15)
[2022-01-09] MEDS ORDERED: morphine INJ 4 MG/ML 1 ML (VIAL/SYRINGE) IV PRN (12:15)
[2022-01-09] MEDS ORDERED: ACETAMINOPHEN 325 MG TABLET PO PRN (12:15)
[2022-01-09] MEDS ORDERED: BISACODYL 5 MG (DULCOLAX) TABLET PO PRN (12:15)
[2022-01-09] MEDS ORDERED: HALOPERIDOL 5 MG/ML (HALDOL) VIAL IM PRN (12:15)
[2022-01-09] MEDS ORDERED: ENOXAPARIN 40 MG/0.4 ML (LOVENOX) SYR SC SCH (12:15)
[2022-01-09] MEDS ORDERED: ANTACID SUSP 30 ML UDC (MYLANTA) PO PRN (12:15)
[2022-01-09] MEDS ORDERED: LACTULOSE SYRUP 10GM/15ML (ENULOSE) 30ML UDC PO PRN (12:15)
[2022-01-09] MEDS ORDERED: NALOXONE 0.4 MG/ML 1 ML (NARCAN) VIAL IV PRN (12:15)
[2022-01-09] MEDS ORDERED: ESTRADIOL VAGINAL CREAM 42.5 GM (ESTRACE) VG SCH (12:15)
[2022-01-09] MEDS ORDERED: HYDROcodone/APAP 5 MG/325 MG (LORTAB) TAB PO PRN (12:15)
[2022-01-09] MEDS ORDERED: ONDANSETRON 4 MG (ZOFRAN) ORAL DISSOLVE TAB PO PRN (12:15)
[2022-01-09] MEDS ORDERED: ONDANSETRON 4 MG/2 ML (SDV) Z0FRAN IV PRN (12:15)
[2022-01-09] MEDS ORDERED: CALCIUM CARBONATE 500 MG (TUMS) TAB.CHEW PO PRN (12:15)
[2022-01-09] MEDS ORDERED: RT-ALBUTEROL/IPRATROPIUM 3 ML (DUONEB) VIAL INH PRN (12:15)
[2022-01-09] MEDS ORDERED: polyethylene glycoL POWDER 17 GM (MIRALAX) PACK PO PRN (12:15)
[2022-01-09] MEDS ORDERED: MICONAZOLE 2% POWDER (DESENEX AF) 90 GM TP PRN (12:15)
[2022-01-09] MEDS ORDERED: MILK OF MAGNESIA 400 MG/5 ML 30 ML UDC PO PRN (12:15)
[2022-01-09] MEDS: RT-ALBUTEROL SULF 2.5 MG/3 ML PRE-MIX VIAL INH SCH ×2 (14:11→21:30)
--- NOTE | 2022-01-09 15:13 | Physical Therapy Evaluation ---
PT Evaluation-General Medical Diagnosis Admission Date Jan 09, 2022 at 12:51 Medical Diagnosis: sepsis, UTI Onset Date: Jan 03, 2022 Therapy Diagnosis Therapy Diagnosis: impaired mobility, strength, endurance Height/Weight Height (Feet): 0 Height (Inches): 60.00 Weight (Pounds): 150 Weight (Ounces): 3.2 Referral Physician: Darleen Reason for Referral: Evaluation/Treatment Medical History Pertinent Medical History: CABG, CAD, DM, HTN, PA, Renal Insufficiency Reviewed History: Yes Social History Home: Detention Prior Prior Level of Function SCALE: Activities may be completed with or without assistive devices. 5-Bebcxyhmjf-xlyintw completes the activity by him/herself with no assistance from a helper. 5-Set-up or Clean-up Assistance-helper sets up or cleans up; patient completes activity. [place] assists only prior to or following the activity. 4-Supervision or Touching Assistance-helper provides verbal cues and/or touching/steadying and/or contact guard assistance as patient completes activity. Assistance may be provided throughout the activity or intermittently. 3-Partial/Moderate Assistance-helper does LESS THAN HALF the effort. [place] lifts, holds or supports trunk or limbs, but provides less than half the effort. 2-Substantial/Maximal Assistance-helper does MORE THAN HALF the effort. [place] lifts or holds trunk or limbs and provides more than half the effort. 1-Compdahlp-hqlirw does ALL the effort. Patient does none of the effort to complete the activity. Or, the assistance of 2 or more helpers is required for the patient to complete the activity. If activity was not attempted, code reason: 7-Patient Refused. 9-Not Applicable-not attempted and the patient did not perform the activity before the current illness, exacerbation or injury. 10-Not Attempted due to Environmental Limitations-(lack of equipment, weather restraints, etc.). 88-Not Attempted due to Medical Conditions or Safety Concerns. Bed Mobility: 6 Transfers (B,C,W/C): 4 Gait: 3 Indoor Mobility (Ambulation): Needed Some Help Prior Devices Use: Walker PT Evaluation-Current Subjective Patient in bed pre tx, agrees to PT, has unrated low back pain. Pt/Family Goals none stated Objective Patient Orientation: Person, Place, Situation Attachments: Colostomy/Ileostomy, Oxygen ROM/Strength ROM Lower Extremities WNL Strength Lower Extremities LLE (hip flexion 3-/5, knee flexion 4-/5, knee extension 4-/5, dorsiflexion 3+/5), RLE (hip flexion 2/5, knee flexion 4-/5, knee extension 4-/5, dorsiflexio n 2/5) Sensory Hearing: Functional Sensation Right Lower Extremit: Intact Sensation Left Lower Extremity: Intact Transfers Roll Left & Right (QC): 6 Sit to Lying (QC): 3 Lying to Sitting/Side of Bed(Q: 3 Sit to Stand (QC): 4 Chair/Nee-fy-Hxfbz Xfer(QC): 4 Toilet Transfer (QC): 4 Car Transfer (QC): 88 Patient needs min assist for supine <-> sit and some assist to scoot forward on the side of the bed Gait Does the Patient Walk?: Yes Mode of Locomotion: Both Anticipated Mode of Locomotion: Both Walk 10 feet (QC): 4 Walk 50 ft with 2 Turns(QC): 88 Walk 150 ft (QC): 88 Walking 10ft/uneven surface-QC: 88 Distance: 25' Gait Assistive Device: FWW Comments/Gait Description slow ambulation, short/choppy steps, no LOB Wheelchair Training Wheel 50 ft with 2 turns (QC): 9 Wheel 150 ft (QC): 9 Stairs 1 Step (curb) (QC): 88 4 Steps (QC): 88 12 Steps (QC): 88 Balance Sitting Static: Normal Sitting Dynamic: Normal Standing Static: Good Standing Dynamic: Fair Picking up an Object (QC): 88 Treatment supine BLE exercises x20 (AP, SLR, HS) Assessment/Needs Patient has impaired mobility, strength, endurance. Patient in bed post tx with nurse call, phone, tray, all needs met. Patient is just CGA for ambulation and transfers but needs min assist for supine <-> sit. Rehab Potential: Fair PT Prison Goals [place] Wheeler Goals PT Manganese Wheeler Goals Time Frame: Jan 16, 2022 Roll Left & Right (QC): 6 Sit to Lying (QC): 4 Lying-Sitting on Side/Bed(QC): 4 Sit to Stand (QC): 4 (SBA) Chair/Sea-jm-Cwygq Xfer(QC): 4 (SBA) Toilet Transfer (QC): 4 Car Transfer (QC): 88 Does the Patient Walk: Yes Walk 10 feet (QC): 4 (SA) Walk 50ft with 2 Turns (QC): 4 (SBA) Walk 150 ft (QC): 88 Walking 10ft on Uneven Surface: 88 1 Step (curb) (QC): 88 4 Steps (QC): 88 12 Steps (QC): 88 Picking up an Object (QC): 88 Wheel 50 feet with 2 turns (QC: 9 Wheel 150 feet: 9 PT Plan Problem List Problem List: Activity Tolerance, Functional Strength, Safety, Balance, Gait, Transfer, Bed Mobility, ROM Treatment/Plan Treatment Plan: Continue Plan of Care Treatment Plan: Bed Mobility, Education, Functional Activity Jennifer, Functional Strength, Gait, Safety, Therapeutic Exercise, Transfers Treatment Duration: Jan 16, 2022 Frequency: 6 times per week Estimated Hrs Per Day: .25 hour per day Patient and/or Family Agrees t: Yes Safety Risks/Education Patient Education: Gait Training, Transfer Techniques, Correct Positioning, Safety Issues Teaching Recipient: Patient Teaching Methods: Demonstration, Discussion Response to Teaching: Reinforcement Needed Discharge Recommendations Plan Patient will perform bed mobility and transfer training, balance and endurance training, functional strengthening, gait training, and education, to improve functional mobility and independence at home. Therapy Discharge Recommendati: 24 Hour Supervision Time/GCodes Time In: 1445 Time Out: 1515 Total Billed Treatment Time: 30 Total Billed Treatment 1 visit ALLIE 15' FA 15' CRISTINA BUSTAMANTE PT Jan 09, 2022 15:12
--- NOTE | 2022-01-09 15:30 | Occupational Therapy Eval ---
OT Evaluation-General/PLF Medical Diagnosis Admission Date Jan 09, 2022 at 12:51 Medical Diagnosis: sepsis, UTI Onset Date: Jan 03, 2022 Therapy Diagnosis Therapy Diagnosis: decreased ADL status, weakness Height/Weight Height (Feet): 0 Height (Inches): 60.00 Weight (Pounds): 150 Weight (Ounces): 3.2 Precautions Precautions/Isolations: Fall Prevention, Standard Precautions Referral Physician: Darleen Referral Reason: Evaluation/Treatment Medical History Pertinent Medical History: CABG, CAD, DM, HTN, LA, Renal Insufficiency Additional Medical History HTN, COPD, CAD, LA, DM, renal failure, diverticulosis, arthritis, fistula, insomnia, anxiety, colostomy, CABG Current History SWB status, UTI/PNA Social History Home: Assisted ADL-Prior Level of Function SCALE: Activities may be completed with or without assistive devices. 5-Gsifxsjijy-acvxdwh completes the activity by him/herself with no assistance from a helper. 5-Set-up or Clean-up Assistance-helper sets up or cleans up; patient completes activity. [place] assists only prior to or following the activity. 4-Supervision or Touching Assistance-helper provides verbal cues and/or touching/steadying and/or contact guard assistance as patient completes activity. Assistance may be provided throughout the activity or intermittently. 3-Partial/Moderate Assistance-helper does LESS THAN HALF the effort. [place] lifts, holds or supports trunk or limbs, but provides less than half the effort. 2-Substantial/Maximal Assistance-helper does MORE THAN HALF the effort. [place] lifts or holds trunk or limbs and provides more than half the effort. 9-Bgazbjorz-mqagzg does ALL the effort. Patient does none of the effort to complete the activity. Or, the assistance of 2 or more helpers is required for the patient to complete the activity. If activity was not attempted, code reason: 7-Patient Refused. 9-Not Applicable-not attempted and the patient did not perform the activity before the current illness, exacerbation or injury. 10-Not Attempted due to Environmental Limitations-(lack of equipment, weather restraints, etc.). 88-Not Attempted due to Medical Conditions or Safety Concerns. ADL PLOF Comments Pt reports having assistance with ADLs at PLOF. She is able to complete UE dressing, toileting and feeding independently, requires assistance with washing LB in shower, assistance threading LEs into pants (pt able to perform pant hike), and assistance with footwear. She uses a w/c for distance, and walker for transfers. Self Care: Needed Some Help OT Current Status Subjective Pt in bed, states she is very tired, agreeable to OT tx. Mental Status/Objective Patient Orientation: Person, Place, Situation Attachments: Colostomy/Ileostomy (& Urostomy), Oxygen Current Dentures/Partials: No Hand Dominance: Right Upper Extremity ROM decreased, BUE shoulder flexion to approx 80 degrees Upper Extremity Coordination WFL Upper Extremity Strength grossly 3/5 ADL-Treatment Eating (QC): 6 (Per pt report.) Oral Hygiene (QC): 5 (Per pt report with oral sponge) Shower/Bathe Self (QC): 2 (Per pt report, able to wash upper body, assistance with lower body.) Upper Body Dressing (QC): 4 (Per clincial judgment. ) Lower Body Dressing (QC): 2 (Per clincial judgment) On/Off Footwear (QC): 1 (Per clincial judgment.) Toileting Hygiene (QC): 88 (Pt has ostomy and urostomy, pt does not assist with emptying/changing.) Other Treatments Pt in bed, agreeable to OT evaluation/tx. Pt declines ADLs, as she has already showered this AM with nursing staff. QC scores above per pt/nursing report and clinical judgment. Pt agreeable to BUE exercises in order to increase strength and activity tolerance. Pt completed x5 reps each of the following BUE ex ercises: shoulder flexion, front punch, elbow flexion/extension and finger flexion/extension. Pt reports dry mouth, able to reach for drink on tray table independently and take a drink of water. Pt able to brush hair with set up assistance. Pt declined OOB activities, as she just got up with PT. Per PT report, pt required CGA for functional mobility using FWW, CGA transfers, min A supine to/from sit. Post tx, pt in bed, call light in reach and all needs met. Education OT Patient Education: Correct positioning, Energy conservation, Exercise program, Modified ADL techniques, Progress toward Goal/Update tx plan, Purpose of tx/functional activities, Rehab process Teaching Recipient: Patient Teaching Methods: Discussion Response to Teaching: Verbalize Understanding OT Detention Goals Hr Payroll Coordinator Goals Time Frame: Feb 02, 2022 Eating (QC): 6 Oral Hygiene (QC): 5 Toileting Hygiene (QC): 88 Shower/Bathe Self (QC): 3 Upper Body Dressing (QC): 5 Lower Body Dressing (QC): 2 On/Off Footwear (QC): 2 Additional Goals: 1-Demonstrate ADL Tasks, 2-Verbalize Understanding, 3-ImproveStrength/Jennifer 1=Demonstrate adherence to instructed precautions during ADL tasks. 2=Patient will verbalize/demonstrate understanding of assistive devices/modifications for ADL. 3=Patient will improve strength/tolerance for activity to enable patient to perform ADL's. OT Education/Plan Problem List/Assessment Assessment: Decreased Activ Tolerance, Decreased UE Strength, Impaired Funct Balance, Impaired I ADL's, Impaired Self-Care Skills Discharge Recommendations Plan/Recommendations: Continue POC Treatment Plan/Plan of Care Patient would benefit from OT for education, treatment and training to promote independence in ADL's, mobility, safety and/or upper extremity function for ADL's. Plan of Care: ADL Retraining, Functional Mobility, UE Funct Exercise/Act Treatment Duration: Feb 02, 2022 Frequency: 5 times per week Estimated Hrs Per Day: .25 hour per day Rehab Potential: Fair Time/GCodes Start Time: 15:15 Stop Time: 15:40 Total Time Billed (hr/min): 25 Billed Treatment Time 1, EVM (10'), EX (15') HAWK BAUER OT Jan 09, 2022 15:30
[2022-01-09] MEDS: MEROPENEM 500 MG in NS (IVPB) 100 ML IV SCH (15:50)
[2022-01-09] MEDS: ENOXAPARIN 40 MG/0.4 ML (LOVENOX) SYR SC SCH (15:50)
[2022-01-09] MEDS: SODIUM BICARBONATE 650 MG TABLET (NON-FORMULARY) PO SCH ×2 (15:50→20:03)
[2022-01-09] MEDS: CYCLOBENZAPRINE 10 MG (FLEXERIL) TAB PO SCH ×2 (15:50→22:37)
[2022-01-09] MEDS: inSUlin ASPART (NovoLOG) 1 UNIT/0.01 ML (CHARGE PER UNIT) SC SCH ×2 (16:00→21:00)
--- NOTE | 2022-01-09 17:28 | Cardiology Progress Note ---
Progress Note-Cardiology Events since last exam Date Seen by Provider: Jan 09, 2022 Time Seen by Provider: 17:22 Events since last exam I am following her due to coronary artery disease and chronic combined type heart failure. She has been transferred to swing bed status. She feels sore all over but denies dyspnea. She denies chest discomfort, palpitations, or syncope. Certain portions of this document may have been dictated utilizing voice recognition technology. Inherent to this technology, typographical and grammatical errors may exist. As much as I am diligent to identify and correct these mistakes, some errors may remain in the document. Vitals Last set of Vitals Signs Vital Signs 01/09/22 14:11 Pulse Ox 97 O2 Delivery Nasal Cannula O2 Flow Rate 2.00 Exam Vital Signs Vital Signs Date Time Temp Pulse Resp B/P (MAP) Pulse Ox O2 Delivery O2 Flow Rate FiO2 01/09/22 14:11 97 Nasal Cannula 2.00 Physical Exam General: Alert. No acute distress. Eye: No xanthelasma. HENT: Normocephalic. Neck: Jugular venous pressure does not appear elevated. Respiratory: Lungs are clear to auscultation. Respirations are non-labored. Breath sounds are equal. Symmetrical chest wall expansion. Cardiovascular: Normal rate. Regular rhythm. No murmur. No gallop. No edema. Gastrointestinal: Soft. Normal bowel sounds. Skin: Warm. Dry. Neurologic: Alert and oriented to person, place, time. Cranial nerves 3-11 grossly intact. Psychiatric: Cooperative. Appropriate mood & affect. Diagnosis/Problems Diagnosis/Problems (1) Chronic combined systolic and diastolic congestive heart failure Assessment & Plan: See seems to be about euvolemic at this point in time. I had treated her with 1 dose of intravenous furosemide and then ordered her normal outpatient oral dose. I also started her on lisinopril. She should continue on metoprolol succinate. At this point, I am not sure she is an ideal candidate for Entresto due to somewhat low blood pressures. This can be addressed by her regular outpatient public health educator at the outside facility following discharge. (2) Cardiomyopathy Assessment & Plan: She has moderate left ventricular systolic dysfunction. I have adjusted her medication as outlined above. Given her age and chronic debility, I am not sure she would be a good candidate for a defibrillator for primary prevention of sudden cardiac . This can certainly be addressed by her regular outside public health educator following discharge. (3) Coronary artery disease without angina pectoris Assessment & Plan: She is not having any angina. Continue aspirin, beta- ana and statin medication. (4) Primary hypertension Assessment & Plan: Blood pressure is well controlled with the present combination of medications. (5) Mixed hyperlipidemia Assessment & Plan: Continue atorvastatin. CHARLY MOE JR, MD Jan 09, 2022 17:28
[2022-01-09 18:07] VITALS: BP 146/78
[2022-01-09] MEDS: GABAPENTIN 100 MG (NEURONTIN) CAP PO SCH (18:20)
[2022-01-09] MEDS: SENNA W/DOCUSATE (SENOKOT S) TABLET PO SCH (18:20)
[2022-01-09] MEDS: LORATADINE (CLARITIN) 10 MG TAB PO SCH (18:20)
[2022-01-09] MEDS: KCL 20 MEQ TAB (K-DUR) PO SCH (18:20)
[2022-01-09] MEDS: SERTRALINE 50 MG (ZOLOFT) TABLET PO SCH (18:20)
[2022-01-09] MEDS: DOCUSATE SODIUM 100 MG (COLACE) CAP PO SCH (20:03)
[2022-01-09] MEDS: traZODone 100 MG (DESYREL) TAB PO SCH (20:03)
[2022-01-09] MEDS: SENNOSIDES 8.6 MG (SENOKOT) TAB PO SCH (20:03)
[2022-01-09] MEDS: LACTOBACILLUS ACIDOPHILUS (PROBIOTIC) CAPSULE PO SCH (20:03)
[2022-01-09] MEDS ORDERED: OXYBUTYNIN (DITROPAN) 5 MG TAB PO SCH (21:00)
[2022-01-10 00:05] VITALS: BP 125/67
[2022-01-10] MEDS: MEROPENEM 500 MG in NS (IVPB) 100 ML IV SCH ×3 (01:21→15:47)
[2022-01-10] MEDS: inSUlin ASPART (NovoLOG) 1 UNIT/0.01 ML (CHARGE PER UNIT) SC SCH ×4 (06:00→21:00)
[2022-01-10] MEDS: CYCLOBENZAPRINE 10 MG (FLEXERIL) TAB PO SCH ×3 (06:28→15:47)
[2022-01-10] MEDS: LEVOTHYROXINE 25 MCG (LEVOTHROID) TAB PO SCH (06:28)
[2022-01-10 07:43] VITALS: BP 136/63
[2022-01-10] MEDS: LORazepam 0.5 MG (ATIVAN) TABLET PO SCH (08:08)
[2022-01-10] MEDS: SODIUM BICARBONATE 650 MG TABLET (NON-FORMULARY) PO SCH ×3 (08:09→20:35)
[2022-01-10] MEDS: LACTOBACILLUS ACIDOPHILUS (PROBIOTIC) CAPSULE PO SCH ×2 (08:09→20:35)
[2022-01-10] MEDS: EMPAGLIFLOZIN 10 MG TABLET (JARDIANCE) PO SCH (08:10)
[2022-01-10] MEDS: OXYBUTYNIN (DITROPAN) 5 MG TAB PO SCH (08:10)
[2022-01-10] MEDS: MAGNESIUM OXIDE (MAG-OX)400 MG TAB PO SCH (08:10)
[2022-01-10] MEDS: FUROSEMIDE 40 MG (LASIX) TAB PO SCH (08:10)
[2022-01-10] MEDS: KCL 20 MEQ TAB (K-DUR) PO SCH ×3 (08:10→17:18)
[2022-01-10] MEDS: DOCUSATE SODIUM 100 MG (COLACE) CAP PO SCH ×2 (08:10→20:35)
[2022-01-10] MEDS: PANTOPRAZOLE 40 MG (PROTONIX) TAB PO SCH (08:10)
[2022-01-10] MEDS: SENNOSIDES 8.6 MG (SENOKOT) TAB PO SCH ×2 (08:10→20:35)
[2022-01-10] MEDS: lisINopril 5 MG (PRINIVIL) TABLET PO SCH (08:10)
[2022-01-10] MEDS: ASPIRIN E.C. 81 MG (ECOTRIN) TAB PO SCH (08:10)
[2022-01-10 08:39] LABS: BASOPHILS # (AUTO) 0.1 10^3/uL (0.0-0.1); BASOPHILS % (AUTO) 0 % (0-10); EOSINOPHILS # (AUTO) 0.8 10^3/uL (0.0-0.3); EOSINOPHILS % (AUTO) 4 % (0-10); HEMATOCRIT 32 % (35-52); HEMOGLOBIN 9.7 g/dL (11.5-16.0); LYMPHOCYTES # (AUTO) 4.8 10^3/uL (1.0-4.0); LYMPHOCYTES % (AUTO) 25 % (12-44); MEAN CORPUSCULAR HEMOGLOBIN 26 pg (25-34); MEAN CORPUSCULAR HGB CONC 31 g/dL (32-36); MEAN CORPUSCULAR VOLUME 86 fL (80-99); MEAN PLATELET VOLUME 9.2 fL (9.0-12.2); MONOCYTES # (AUTO) 1.1 10^3/uL (0.0-1.0); MONOCYTES % (AUTO) 6 % (0-12); NEUTROPHILS # (AUTO) 12.3 10^3/uL (1.8-7.8); NEUTROPHILS % (AUTO) 64 % (42-75); PLATELET COUNT 441 10^3/uL (130-400); WHITE BLOOD COUNT 19.4 10^3/uL (4.3-11.0)
[2022-01-10] MEDS: RT-ALBUTEROL SULF 2.5 MG/3 ML PRE-MIX VIAL INH SCH ×3 (08:39→21:17)
[2022-01-10 08:57] LABS: CALCIUM 8.8 MG/DL (8.5-10.1); CREATININE SERUM 0.72 MG/DL (0.60-1.30); POTASSIUM 4.8 MMOL/L (3.6-5.0)
[2022-01-10] MEDS ORDERED: ISOSORBIDE MONONITRATE 30 MG (IMDUR) TAB PO ONE (09:45)
--- NOTE | 2022-01-10 09:46 | Cardiology Progress Note ---
Progress Note-Cardiology Events since last exam Date Seen by Provider: Jan 10, 2022 Time Seen by Provider: 09:43 Events since last exam I am following her due to heart failure and coronary artery disease. She states that her breathing has improved. She tells me today that she has been having some intermittent left and right-sided pain in her upper chest. She states that this is chronic and often has this at the [facility]. Sometimes she will take a sublingual nitroglycerin and get relief. The symptoms are presently short- lived. This chest discomfort is not any more severe, frequent or prolonged than she experiences at home. She denies palpitations, syncope, or ankle edema. Certain portions of this document may have been dictated utilizing voice recognition technology. Inherent to this technology, typographical and grammatical errors may exist. As much as I am diligent to identify and correct these mistakes, some errors may remain in the document. Vitals Last set of Vitals Signs Vital Signs 01/10/22 12:29 Temp 36.5 Pulse 100 Resp 18 B/P (MAP) 113/63 (80) Pulse Ox 100 O2 Delivery Nasal Cannula O2 Flow Rate 2.00 Labs Labs Laboratory Tests 01/10/22 08:33 Exam Vital Signs Vital Signs Date Time Temp Pulse Resp B/P (MAP) Pulse Ox O2 Delivery O2 Flow Rate FiO2 01/10/22 12:29 36.5 100 18 113/63 (80) 100 Nasal Cannula 2.00 Physical Exam General: Alert. No acute distress. Eye: No xanthelasma. HENT: Normocephalic. Neck: Jugular venous pressure does not appear elevated. Respiratory: Lungs are clear to auscultation. Respirations are non-labored. Breath sounds are equal. Symmetrical chest wall expansion. Cardiovascular: Normal rate. Regular rhythm. No murmur. No gallop. No edema. Gastrointestinal: Soft. Normal bowel sounds. Skin: Warm. Dry. Neurologic: Alert and oriented to person, place, time. Cranial nerves 3-11 grossly intact. Psychiatric: Cooperative. Appropriate mood & affect. Labs Laboratory Tests Test 01/09/22 21:45 01/10/22 06:15 01/10/22 08:33 01/10/22 11:25 Range/Units Glucometer 127 H 125 H 172 H 70-110 MG/DL White Blood Count 19.4 H 4.3-11.0 10^3/uL Red Blood Count 3.69 L 3.80-5.11 10^6/uL Hemoglobin 9.7 L 11.5-16.0 g/dL Hematocrit 32 L 35-52 % Mean Corpuscular Volume 86 80-99 fL Mean Corpuscular Hemoglobin 26 25-34 pg Mean Corpuscular Hemoglobin Concent 31 L 32-36 g/dL Red Cell Distribution Width 14.7 H 10.0-14.5 % Platelet Count 441 H 130-400 10^3/uL Mean Platelet Volume 9.2 9.0-12.2 fL Immature Granulocyte % (Auto) 1 % Neutrophils (%) (Auto) 64 42-75 % Lymphocytes (%) (Auto) 25 12-44 % Monocytes (%) (Auto) 6 0-12 % Eosinophils (%) (Auto) 4 0-10 % Basophils (%) (Auto) 0 0-10 % Neutrophils # (Auto) 12.3 H 1.8-7.8 10^3/uL Lymphocytes # (Auto) 4.8 H 1.0-4.0 10^3/uL Monocytes # (Auto) 1.1 H 0.0-1.0 10^3/uL Eosinophils # (Auto) 0.8 H 0.0-0.3 10^3/uL Basophils # (Auto) 0.1 0.0-0.1 10^3/uL Immature Granulocyte # (Auto) 0.3 H 0.0-0.1 10^3/uL Sodium Level 137 135-145 MMOL/L Potassium Level 4.8 3.6-5.0 MMOL/L Chloride Level 98 98-107 MMOL/L Carbon Dioxide Level 29 21-32 MMOL/L Anion Gap 10 5-14 MMOL/L Blood Urea Nitrogen 5 L 7-18 MG/DL Creatinine 0.72 0.60-1.30 MG/DL Estimat Glomerular Filtration Rate 85 BUN/Creatinine Ratio 7 Glucose Level 128 H 70-105 MG/DL Calcium Level 8.8 8.5-10.1 MG/DL Diagnosis/Problems Diagnosis/Problems (1) Coronary artery disease involving wiyot coronary artery with angina pectoris Assessment & Plan: Today she reported this chest discomfort to me which she st ates is chronic and unchanged. She is on beta-ana. I will add long-acting nitrates. I do not see any indication for an ischemic evaluation since her chest discomfort is chronic and unchanged. She should continue on aspirin and statin medication. She plans to follow-up with her regular instrument repairer helper at the outside facility following discharge. (2) Chronic combined systolic and diastolic congestive heart failure Assessment & Plan: See seems to be about euvolemic at this point in time. I had treated her with 1 dose of intravenous furosemide and then ordered her normal outpatient oral dose of furosemide. I also started her on lisinopril. She should continue on metoprolol succinate. At this point, I am not sure she is an ideal candidate for Entresto due to somewhat low blood pressures. This can be addressed by her regular outpatient instrument repairer helper at the outside facility following discharge. I will obtain a follow-up chest x-ray today. (3) Cardiomyopathy Assessment & Plan: She has moderate left ventricular systolic dysfunction. Exact etiology unclear. I do not see any urgent need for an ischemic evaluation. I have adjusted her medication as outlined above. Given her age and chronic debility, I am not sure she would be a good candidate for a defibrillator for primary prevention of sudden cardiac . This can certainly be addressed by her regular outside instrument repairer helper following discharge. (4) Primary hypertension Assessment & Plan: Blood pressure is well controlled with the present combination of medications. (5) Mixed hyperlipidemia Assessment & Plan: Continue atorvastatin. CHARLY MOE JR, MD Jan 10, 2022 09:46
--- NOTE | 2022-01-10 11:44 | Diagnostic Imaging Report ---
EXAMINATION: Chest, two views. HISTORY: Short of breath. COMPARISON: 01/07/2022. FINDINGS: Median sternotomy wires are aligned. There are coronary artery bypass graft markers. Left hemidiaphragm is elevated possibly with a subpulmonic effusion. No pneumothorax. No edema or pneumonia. Heart size is normal. IMPRESSION: 1. Elevated left hemidiaphragm possibly with a subpulmonic effusion. Dictated by: Dictated on workstation # [id number]
--- NOTE | 2022-01-10 11:55 | Occupational Ther Daily Note ---
OT Current Status-Daily Note Subjective Pt alert, sitting in recliner. Pt agrees to therapy. No c/o pain, only fatigue. Mental Status/Objective Patient Orientation: Person, Place, Time, Situation Attachments: Colostomy/Ileostomy, IV ADL-Treatment Therapy Code Descriptions/Definitions Functional [place] Measure: 0=Not Assessed/NA 4=Minimal Assistance 1=Total Assistance 5=Supervision or Setup 2=Maximal Assistance 6=Modified [place] 3=Moderate Assistance 7=Complete IndependenceSCALE: Activities may be completed with or without assistive devices. 9-Wyibpzbmlv-sfosrxh completes the activity by him/herself with no assistance from a helper. 5-Set-up or Clean-up Assistance-helper sets up or cleans up; patient completes activity. [place] assists only prior to or following the activity. 4-Supervision or Touching Assistance-helper provides verbal cues and/or touching/steadying and/or contact guard assistance as patient completes ac tivity. Assistance may be provided throughout the activity or intermittently. 3-Partial/Moderate Assistance-helper does LESS THAN HALF the effort. [place] lifts, holds or supports trunk or limbs, but provides less than half the effort. 2-Substantial/Maximal Assistance-helper does MORE THAN HALF the effort. [place] lifts or holds trunk or limbs and provides more than half the effort. 0-Omitsnrsy-ukkpgq does ALL the effort. Patient does none of the effort to complete the activity. Or, the assistance of 2 or more helpers is required for the patient to complete the activity. If activity was not attempted, code reason: 7-Patient Refused. 9-Not Applicable-not attempted and the patient did not perform the activity before the current illness, exacerbation or injury. 10-Not Attempted due to Environmental Limitations-(lack of equipment, weather restraints, etc.). 88-Not Attempted due to Medical Conditions or Safety Concerns. Other Treatment Attempted to have pt use light resistance theraband for B UE strengthening. Pt to weak at this time to use theraband effectively. Pt then was able to complete exercises against gravity to strength B UE and increase activity tolerance. Will continue to work on strengthening B UE and will move to more resistance when pt is able to use effectively. After session, pt sitting in recliner with call light/phone in reach. All needs met in room. OT Jail Goals Jail Goals Time Frame: Feb 02, 2022 Eating (QC): 6 Oral Hygiene (QC): 5 Toileting Hygiene (QC): 88 Shower/Bathe Self (QC): 3 Upper Body Dressing (QC): 5 Lower Body Dressing (QC): 2 On/Off Footwear (QC): 2 Additional Goals: 1-Demonstrate ADL Tasks, 2-Verbalize Understanding, 3- ImproveStrength/Jennifer 1=Demonstrate adherence to instructed precautions during ADL tasks. 2=Patient will verbalize/demonstrate understanding of assistive devices/modifications for ADL. 3=Patient will improve strength/tolerance for activity to enable patient to perform ADL's. OT Education/Plan Problem List/Assessment Assessment: Decreased Activ Tolerance, Decreased UE Strength, Impaired Self- Care Skills Discharge Recommendations Plan/Recommendations: Continue POC Treatment Plan/Plan of Care Patient would benefit from OT for education, treatment and training to promote independence in ADL's, mobility, safety and/or upper extremity function for ADL's. Plan of Care: ADL Retraining, Functional Mobility, UE Funct Exercise/Act Treatment Duration: Feb 02, 2022 Frequency: 5 times per week Estimated Hrs Per Day: .25 hour per day Rehab Potential: Fair Time/GCodes Start Time: 10:38 Stop Time: 10:53 Total Time Billed (hr/min): 15 Billed Treatment Time 1 visit-EX 1 (15 min) FABIÁN PETERS Jan 10, 2022 11:55
--- NOTE | 2022-01-10 12:23 | Physical Therapy Daily Note ---
PT Daily Note-Current Subjective Pt. sitting in recliner, agrees to Rx, requests BSC after. States her back is uncomfortable in recliner, efforts made after rx to help pt. into better position for her back Pain Numeric Pain Scale: 4 Location: Medial Location Body Site: Back Pain Description: Ache Mental Status Patient Orientation: Normal For Age Attachments: Colostomy/Ileostomy, Oxygen Transfers SCALE: Activities may be completed with or without assistive devices. 6-Njbhuadymx-mpspfmg completes the activity by him/herself with no assistance from a helper. 5-Set-up or Clean-up Assistance-helper sets up or cleans up; patient completes activity. [place] assists only prior to or following the activity. 4-Supervision or Touching Assistance-helper provides verbal cues and/or touching/steadying and/or contact guard assistance as patient completes activity. Assistance may be provided throughout the activity or intermittently. 3-Partial/Moderate Assistance-helper does LESS THAN HALF the effort. [place] lifts, holds or supports trunk or limbs, but provides less than half the effort. 2-Substantial/Maximal Assistance-helper does MORE THAN HALF the effort. [place] lifts or holds trunk or limbs and provides more than half the effort. 4-Hwhdtdyys-flicyk does ALL the effort. Patient does none of the effort to complete the activity. Or, the assistance of 2 or more helpers is required for the patient to complete the activity. If activity was not attempted, code reason: 7-Patient Refused. 9-Not Applicable-not attempted and the patient did not perform the activity before the current illness, exacerbation or injury. 10-Not Attempted due to Environmental Limitations-(lack of equipment, weather restraints, etc.). 88-Not Attempted due to Medical Conditions or Safety Concerns. sit to stand x 6 trials, all CGA to min Gait Training Does the Patient Walk?: Yes Walk 10 feet (QC): 4 Gait Persons Needed: 1 Gait Assistive Device: FWW 25 ft x 2 slow, min assist and assist O2 no LOB, good use of device Exercises Supine Ex: Ankle pumps, Quad Set, Heel Slides, Straight leg raise, Hip abd/add Supine Reps: 10 Treatments gait, toileting max assist clothing and cleaning, LE ex, repositioned in chair after for attempt at zero grav position Assessment Current Status: Fair Progress PT Family Law Paralegal Goals Family Law Paralegal Goals PT Halfway Goals Time Frame: Jan 16, 2022 Roll Left & Right (QC): 6 Sit to Lying (QC): 4 Lying-Sitting on Side/Bed(QC): 4 Sit to Stand (QC): 4 (SBA) Chair/Hec-ec-Xkxwc Xfer(QC): 4 (SBA) Toilet Transfer (QC): 4 Car Transfer (QC): 88 Does the Patient Walk: Yes Walk 10 feet (QC): 4 (SA) Walk 50ft with 2 Turns (QC): 4 (SBA) Walk 150 ft (QC): 88 Walking 10ft on Uneven Surface: 88 1 Step (curb) (QC): 88 4 Steps (QC): 88 12 Steps (QC): 88 Picking up an Object (QC): 88 Wheel 50 feet with 2 turns (QC: 9 Wheel 150 feet: 9 PT Plan Treatment/Plan Treatment Plan: Continue Plan of Care Treatment Plan: Bed Mobility, Education, Functional Activity Jennifer, Functional Strength, Gait, Safety, Therapeutic Exercise, Transfers Treatment Duration: Jan 16, 2022 Frequency: 6 times per week Estimated Hrs Per Day: .25 hour per day Patient and/or Family Agrees t: Yes Safety Risks/Education Patient Education: Gait Training, Transfer Techniques, Correct Positioning, Safety Issues Teaching Recipient: Patient Teaching Methods: Demonstration, Discussion Response to Teaching: Verbalize Understanding, Return Demonstration, Re inforcement Needed Time/GCodes Time In: 1150 Time Out: 1210 Total Billed Treatment Time: 20 Total Billed Treatment 1,GT20m REBECCA COX CUSHION STUFFER Jan 10, 2022 12:23
[2022-01-10 12:29] VITALS: BP 113/63
[2022-01-10] MEDS: ENOXAPARIN 40 MG/0.4 ML (LOVENOX) SYR SC SCH (12:55)
[2022-01-10] MEDS: MICONAZOLE 2% POWDER (DESENEX AF) 90 GM TOP SCH ×3 (12:56→20:36)
[2022-01-10] MEDS: FLUTICASONE NASAL SPRAY (FLONASE) 16 GM BTL NS SCH (12:57)
[2022-01-10] MEDS: LORATADINE (CLARITIN) 10 MG TAB PO SCH (17:18)
[2022-01-10] MEDS: SERTRALINE 50 MG (ZOLOFT) TABLET PO SCH (17:19)
[2022-01-10] MEDS: GABAPENTIN 100 MG (NEURONTIN) CAP PO SCH (17:19)
[2022-01-10] MEDS: SENNA W/DOCUSATE (SENOKOT S) TABLET PO SCH (17:19)
[2022-01-10 19:46] VITALS: BP 127/61
[2022-01-10] MEDS: traZODone 100 MG (DESYREL) TAB PO SCH (20:35)
[2022-01-11] MEDS: MEROPENEM 500 MG in NS (IVPB) 100 ML IV SCH ×4 (00:05→23:13)
[2022-01-11] MEDS: CYCLOBENZAPRINE 10 MG (FLEXERIL) TAB PO SCH ×5 (00:05→22:53)
[2022-01-11 00:34] VITALS: BP 109/59
[2022-01-11] MEDS: LEVOTHYROXINE 25 MCG (LEVOTHROID) TAB PO SCH (05:29)
[2022-01-11] MEDS: inSUlin ASPART (NovoLOG) 1 UNIT/0.01 ML (CHARGE PER UNIT) SC SCH ×4 (05:49→21:02)
[2022-01-11] MEDS: RT-ALBUTEROL SULF 2.5 MG/3 ML PRE-MIX VIAL INH SCH ×3 (07:34→19:14)
[2022-01-11 08:23] VITALS: BP 116/64
--- NOTE | 2022-01-11 09:31 | Physical Therapy Daily Note ---
PT Daily Note-Current Subjective Patient presented sitting EOB after returning from the commode with nursing staff. Patient agreed to walk around her room but didn't want to go out into the [place]. Mental Status Patient Orientation: Person, Situation Attachments: Colostomy/Ileostomy, Oxygen Transfers SCALE: Activities may be completed with or without assistive devices. 0-Lyvsdzyejq-eoedwkx completes the activity by him/herself with no assistance from a helper. 5-Set-up or Clean-up Assistance-helper sets up or cleans up; patient completes activity. [place] assists only prior to or following the activity. 4-Supervision or Touching Assistance-helper provides verbal cues and/or touching/steadying and/or contact guard assistance as patient completes activity. Assistance may be provided throughout the activity or intermittently. 3-Partial/Moderate Assistance-helper does LESS THAN HALF the effort. [place] lifts, holds or supports trunk or limbs, but provides less than half the effort. 2-Substantial/Maximal Assistance-helper does MORE THAN HALF the effort. [place] lifts or holds trunk or limbs and provides more than half the effort. 5-Oaprwlfqw-mxxfbp does ALL the effort. Patient does none of the effort to complete the activity. Or, the assistance of 2 or more helpers is required for the patient to complete the activity. If activity was not attempted, code reason: 7-Patient Refused. 9-Not Applicable-not attempted and the patient did not perform the activity before the current illness, exacerbation or injury. 10-Not Attempted due to Environmental Limitations-(lack of equipment, weather restraints, etc.). 88-Not Attempted due to Medical Conditions or Safety Concerns. Sit to Stand (QC): 4 Chair/Tnf-fh-Jkyko Xfer(QC): 4 Patient required CGA for all transfers. Gait Training Does the Patient Walk?: Yes Distance: 50' x2 Walk 10 feet (QC): 4 Walk 50 ft with 2 Turns(QC): 4 Gait Assistive Device: FWW Patient ambulated with FWW and CGA for 50' and ambulated that distance twice during therapy session. Patient reported fatigue after 50' of ambulation and requested to sit and rest. Exercises Seated Therapy Exercises: Long arc quads, Hip flexion Seated Reps: 15 Treatments Seated exercises Ambulation Assessment Patient ambulated and performed seated exercises. Patient required CGA for all transfers and ambulation. Patient reported fatigue after ambulation but was able to sit and rest for a couple minutes and go again. Patient endurance is biggest limiting factor. PT Keyboarding Teacher Goals Shelter Goals PT Keyboarding Teacher Goals Time Frame: Jan 16, 2022 Roll Left & Right (QC): 6 Sit to Lying (QC): 4 Lying-Sitting on Side/Bed(QC): 4 Sit to Stand (QC): 4 (SBA) Chair/Ozk-du-Hluhb Xfer(QC): 4 (SBA) Toilet Transfer (QC): 4 Car Transfer (QC): 88 Does the Patient Walk: Yes Walk 10 feet (QC): 4 (SA) Walk 50ft with 2 Turns (QC): 4 (SBA) Walk 150 ft (QC): 88 Walking 10ft on Uneven Surface: 88 1 Step (curb) (QC): 88 4 Steps (QC): 88 12 Steps (QC): 88 Picking up an Object (QC): 88 Wheel 50 feet with 2 turns (QC: 9 Wheel 150 feet: 9 PT Plan Problem List Problem List: Activity Tolerance, Functional Strength, Safety, Balance, Gait, Transfer, Bed Mobility, ROM Treatment/Plan Treatment Plan: Continue Plan of Care Treatment Plan: Bed Mobility, Education, Functional Activity Jennifer, Functional Strength, Gait, Safety, Therapeutic Exercise, Transfers Treatment Duration: Jan 16, 2022 Frequency: 6 times per week Estimated Hrs Per Day: .25 hour per day Patient and/or Family Agrees t: Yes Time/GCodes Time In: 843 Time Out: 902 Total Billed Treatment Time: 19 Total Billed Treatment 1 Visit FA 19 min HAMMAD BROWN PT Jan 11, 2022 09:31
[2022-01-11] MEDS: ASPIRIN E.C. 81 MG (ECOTRIN) TAB PO SCH (09:43)
[2022-01-11] MEDS: SODIUM BICARBONATE 650 MG TABLET (NON-FORMULARY) PO SCH ×3 (09:43→19:56)
[2022-01-11] MEDS: LACTOBACILLUS ACIDOPHILUS (PROBIOTIC) CAPSULE PO SCH ×2 (09:43→19:56)
[2022-01-11] MEDS: MAGNESIUM OXIDE (MAG-OX)400 MG TAB PO SCH (09:43)
[2022-01-11] MEDS: SENNOSIDES 8.6 MG (SENOKOT) TAB PO SCH ×2 (09:47→19:56)
[2022-01-11] MEDS: LORazepam 0.5 MG (ATIVAN) TABLET PO SCH (09:48)
[2022-01-11] MEDS: DOCUSATE SODIUM 100 MG (COLACE) CAP PO SCH ×2 (09:48→19:56)
[2022-01-11] MEDS: FUROSEMIDE 40 MG (LASIX) TAB PO SCH (09:49)
[2022-01-11] MEDS: lisINopril 5 MG (PRINIVIL) TABLET PO SCH (09:49)
[2022-01-11] MEDS: OXYBUTYNIN (DITROPAN) 5 MG TAB PO SCH (09:50)
[2022-01-11] MEDS: KCL 20 MEQ TAB (K-DUR) PO SCH ×3 (09:50→18:26)
[2022-01-11] MEDS: EMPAGLIFLOZIN 10 MG TABLET (JARDIANCE) PO SCH (09:50)
[2022-01-11] MEDS: FLUTICASONE NASAL SPRAY (FLONASE) 16 GM BTL NS SCH (09:51)
[2022-01-11] MEDS: MICONAZOLE 2% POWDER (DESENEX AF) 90 GM TOP SCH ×2 (09:52→19:57)
[2022-01-11] MEDS: PANTOPRAZOLE 40 MG (PROTONIX) TAB PO SCH (09:52)
[2022-01-11] MEDS: ISOSORBIDE MONONITRATE 30 MG (IMDUR) TAB PO SCH (09:52)
--- NOTE | 2022-01-11 10:02 | Progress Note - Hospitalist ---
Subjective HPI/CC On Admission Date Seen by Provider: Jan 11, 2022 Time Seen by Provider: 09:05 Subjective/Events-last exam She is doing well. She worked with therapy. She is sitting in her chair. She has pain which is chronic. She has eaten breakfast. Objective Exam Vital Signs Vital Signs Date Time Temp Pulse Resp B/P (MAP) Pulse Ox O2 Delivery O2 Flow Rate FiO2 01/11/22 08:23 36.3 94 18 116/64 (81) 100 Nasal Cannula 2.00 Capillary Refill : General Appearance: No Apparent Distress, Chronically ill Respiratory: Lungs Clear, No Respiratory Distress Cardiovascular: Regular Rate, Rhythm, No Murmur Gastrointestinal: Normal Bowel Sounds, Soft, Other (colostomy) Extremity: Normal Inspection, No Pedal Edema Neurologic/Psychiatric: Alert, No Motor/Sensory Deficits Skin: Normal Color, Warm/Dry Results/Procedures Lab Patient resulted labs reviewed. Assessment/Plan Assessment and Plan Assess & Plan/Chief Complaint UTI PNA Continue [place] T2DM Sliding scale insulin HTN COPD Hypothyroidism Colostomy Continue home meds DVT prophylaxis: Lovenox Severe sepsis, resolved Diagnosis/Problems Diagnosis/Problems (1) UTI (urinary tract infection) Status: Acute (2) PNA (pneumonia) Status: Acute (3) T2DM (type 2 diabetes mellitus) Status: Chronic (4) Colostomy in place Status: Chronic (5) HTN (hypertension) Status: Chronic (6) COPD (chronic obstructive pulmonary disease) Status: Chronic JACQUELINE MCDANIEL MD Jan 11, 2022 10:02
--- NOTE | 2022-01-11 12:16 | Occupational Ther Daily Note ---
OT Current Status-Daily Note Subjective Pt alert, sitting in recliner. Pt agrees to therapy. Pt c/o fatigue. Mental Status/Objective Patient Orientation: Person, Place, Time, Situation Attachments: Colostomy/Ileostomy, IV, Oxygen ADL-Treatment Pt states that she lives at [facility]. She has assistance to bathe and toilet if needed. Pt able to complete upper body to knees then requests assistance to complete rest of bathing. Assist to don/doff socks. After setup, pt able to complete oral care. After session, pt sitting in recliner with call light/phone in reach. All needs met in room. Therapy Code Descriptions/Definitions Functional [place] Measure: 0=Not Assessed/NA 4=Minimal Assistance 1=Total Assistance 5=Supervision or Setup 2=Maximal Assistance 6=Modified [place] 3=Moderate Assistance 7=Complete IndependenceSCALE: Activities may be completed with or without assistive devices. 5-Zafuzuvxge-dvavhlm completes the activity by him/herself with no assistance from a helper. 5-Set-up or Clean-up Assistance-helper sets up or cleans up; patient completes activity. [place] assists only prior to or following the activity. 4-Supervision or Touching Assistance-helper provides verbal cues and/or touching/steadying and/or contact guard assistance as patient completes activity. Assistance may be provided throughout the activity or intermittently. 3-Partial/Moderate Assistance-helper does LESS THAN HALF the effort. [place] lifts, holds or supports trunk or limbs, but provides less than half the effort. 2-Substantial/Maximal Assistance-helper does MORE THAN HALF the effort. [place] lifts or holds trunk or limbs and provides more than half the effort. 7-Raaweixfh-ylvewn does ALL the effort. Patient does none of the effort to complete the activity. Or, the assistance of 2 or more helpers is required for the patient to complete the activity. If activity was not attempted, code reason: 7-Patient Refused. 9-Not Applicable-not attempted and the patient did not perform the activity before the current illness, exacerbation or injury. 10-Not Attempted due to Environmental Limitations-(lack of equipment, weather restraints, etc.). 88-Not Attempted due to Medical Conditions or Safety Concerns. Shower/Bathe Self (QC): 3 Upper Body Dressing (QC): 5 On/Off Footwear: 1 OT Nursing Home Goals Nursing Home Goals Time Frame: Feb 02, 2022 Eating (QC): 6 Oral Hygiene (QC): 5 Toileting Hygiene (QC): 88 Shower/Bathe Self (QC): 3 Upper Body Dressing (QC): 5 Lower Body Dressing (QC): 2 On/Off Footwear (QC): 2 Additional Goals: 1-Demonstrate ADL Tasks, 2-Verbalize Understanding, 3- ImproveStrength/Jennifer 1=Demonstrate adherence to instructed precautions during ADL tasks. 2=Patient will verbalize/demonstrate understanding of assistive devices/modifications for ADL. 3=Patient will improve strength/tolerance for activity to enable patient to perform ADL's. OT Education/Plan Problem List/Assessment Assessment: Decreased Activ Tolerance, Decreased UE Strength, Impaired Self- Care Skills Discharge Recommendations Plan/Recommendations: Continue POC Treatment Plan/Plan of Care Patient would benefit from OT for education, treatment and training to promote independence in ADL's, mobility, safety and/or upper extremity function for ADL's. Plan of Care: ADL Retraining, Functional Mobility, UE Funct Exercise/Act Treatment Duration: Feb 02, 2022 Frequency: 5 times per week Estimated Hrs Per Day: .25 hour per day Rehab Potential: Fair Time/GCodes Start Time: 11:30 Stop Time: 11:45 Total Time Billed (hr/min): 15 Billed Treatment Time 1 visit-ADL 1 (15 min) FABIÁN PETERS Jan 11, 2022 12:16
--- NOTE | 2022-01-11 12:18 | Cardiology Progress Note ---
Progress Note-Cardiology Events since last exam Date Seen by Provider: Jan 11, 2022 Time Seen by Provider: 12:14 Events since last exam I am following her due to heart failure and coronary artery disease. In 01/10 I started her on isosorbide mononitrate. Today she denies any further chest disc omfort. She denies dyspnea at rest, palpitations, syncope, or ankle edema. She wants to know when she can go home. Certain portions of this document may have been dictated utilizing voice recognition technology. Inherent to this technology, typographical and grammatical errors may exist. As much as I am diligent to identify and correct these mistakes, some errors may remain in the document. Vitals Last set of Vitals Signs Vital Signs 01/11/22 08:23 Temp 36.3 Pulse 94 Resp 18 B/P (MAP) 116/64 (81) Pulse Ox 100 O2 Delivery Nasal Cannula O2 Flow Rate 2.00 Exam Vital Signs Vital Signs Date Time Temp Pulse Resp B/P (MAP) Pulse Ox O2 Delivery O2 Flow Rate FiO2 01/11/22 08:23 36.3 94 18 116/64 (81) 100 Nasal Cannula 2.00 Physical Exam General: Alert. No acute distress. Eye: No xanthelasma. HENT: Normocephalic. Neck: Jugular venous pressure does not appear elevated. Respiratory: Lungs are clear to auscultation. Respirations are non-labored. Breath sounds are equal. Symmetrical chest wall expansion. Cardiovascular: Normal rate. Regular rhythm. No murmur. No gallop. No edema. Gastrointestinal: Soft. Normal bowel sounds. Skin: Warm. Dry. Neurologic: Alert and oriented to person, place, time. Cranial nerves 3-11 grossly intact. Psychiatric: Cooperative. Appropriate mood & affect. 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 Her chest discomfort has now resolved. I do not see any indication for an ischemic evaluation since her chest discomfort is chronic and unchanged. She should continue on aspirin, beta-ana and statin medication. She plans to follow-up with her regular pick and shovel worker at the outside facility following discharge. (2) Chronic combined systolic and diastolic congestive heart failure Assessment & Plan: See seems to be about euvolemic at this point in time. I had treated her with 1 dose of intravenous furosemide and then ordered her normal outpatient oral dose of furosemide. I also started her on lisinopril. She should continue on metoprolol succinate. At this point, I am not sure she is an ideal candidate for Entresto due to somewhat low blood pressures. This can be addressed by her regular outpatient pick and shovel worker at the outside facility following discharge. (3) Cardiomyopathy Assessment & Plan: She has moderate left ventricular systolic dysfunction. Exact etiology unclear. I do not see any urgent need for an ischemic evaluation. I have adjusted her medication as outlined above. Given her age and chronic debility, I am not sure she would be a good candidate for a defi brillator for primary prevention of sudden cardiac . This can certainly be addressed by her regular outside pick and shovel worker following discharge. (4) Primary hypertension Assessment & Plan: Blood pressure is well controlled with the present combination of medications. (5) Mixed hyperlipidemia Assessment & Plan: Continue atorvastatin. CHARLY MEO JR, MD Jan 11, 2022 12:18
[2022-01-11] MEDS: ENOXAPARIN 40 MG/0.4 ML (LOVENOX) SYR SC SCH (14:08)
[2022-01-11] MEDS: GABAPENTIN 100 MG (NEURONTIN) CAP PO SCH (18:26)
[2022-01-11] MEDS: SENNA W/DOCUSATE (SENOKOT S) TABLET PO SCH (18:27)
[2022-01-11] MEDS: SERTRALINE 50 MG (ZOLOFT) TABLET PO SCH (18:27)
[2022-01-11] MEDS: LORATADINE (CLARITIN) 10 MG TAB PO SCH (18:29)
[2022-01-11 19:17] VITALS: BP 135/63
[2022-01-11] MEDS: traZODone 100 MG (DESYREL) TAB PO SCH (19:56)
[2022-01-12] MEDS: inSUlin ASPART (NovoLOG) 1 UNIT/0.01 ML (CHARGE PER UNIT) SC SCH ×4 (05:20→20:28)
[2022-01-12] MEDS: CYCLOBENZAPRINE 10 MG (FLEXERIL) TAB PO SCH ×3 (05:33→21:12)
[2022-01-12] MEDS: LEVOTHYROXINE 25 MCG (LEVOTHROID) TAB PO SCH (05:35)
[2022-01-12 06:30] LABS: BASOPHILS # (AUTO) 0.1 10^3/uL (0.0-0.1); BASOPHILS % (AUTO) 1 % (0-10); EOSINOPHILS # (AUTO) 0.6 10^3/uL (0.0-0.3); EOSINOPHILS % (AUTO) 4 % (0-10); HEMATOCRIT 32 % (35-52); HEMOGLOBIN 9.6 g/dL (11.5-16.0); LYMPHOCYTES # (AUTO) 4.8 10^3/uL (1.0-4.0); LYMPHOCYTES % (AUTO) 28 % (12-44); MEAN CORPUSCULAR HEMOGLOBIN 27 pg (25-34); MEAN CORPUSCULAR HGB CONC 30 g/dL (32-36); MEAN CORPUSCULAR VOLUME 88 fL (80-99); MEAN PLATELET VOLUME 9.6 fL (9.0-12.2); MONOCYTES # (AUTO) 1.1 10^3/uL (0.0-1.0); MONOCYTES % (AUTO) 6 % (0-12); NEUTROPHILS # (AUTO) 10.2 10^3/uL (1.8-7.8); NEUTROPHILS % (AUTO) 60 % (42-75); PLATELET COUNT 523 10^3/uL (130-400); WHITE BLOOD COUNT 17.2 10^3/uL (4.3-11.0)
[2022-01-12 06:43] LABS: POTASSIUM 5.4 MMOL/L (3.6-5.0)
[2022-01-12 06:44] LABS: CALCIUM 9.6 MG/DL (8.5-10.1)
[2022-01-12 06:49] LABS: CREATININE SERUM 0.68 MG/DL (0.60-1.30)
[2022-01-12] MEDS: RT-ALBUTEROL SULF 2.5 MG/3 ML PRE-MIX VIAL INH SCH ×3 (07:58→19:57)
[2022-01-12 08:43] VITALS: BP 114/67
[2022-01-12] MEDS: DOCUSATE SODIUM 100 MG (COLACE) CAP PO SCH ×2 (08:56→21:12)
[2022-01-12] MEDS: SENNOSIDES 8.6 MG (SENOKOT) TAB PO SCH ×2 (08:57→21:12)
[2022-01-12] MEDS: MEROPENEM 500 MG in NS (IVPB) 100 ML IV SCH ×2 (10:17→16:37)
[2022-01-12] MEDS: lisINopril 5 MG (PRINIVIL) TABLET PO SCH (10:18)
[2022-01-12] MEDS: SODIUM BICARBONATE 650 MG TABLET (NON-FORMULARY) PO SCH ×3 (10:18→21:13)
[2022-01-12] MEDS: MAGNESIUM OXIDE (MAG-OX)400 MG TAB PO SCH (10:18)
[2022-01-12] MEDS: PANTOPRAZOLE 40 MG (PROTONIX) TAB PO SCH (10:18)
[2022-01-12] MEDS: FUROSEMIDE 40 MG (LASIX) TAB PO SCH (10:18)
[2022-01-12] MEDS: LORazepam 0.5 MG (ATIVAN) TABLET PO SCH (10:18)
[2022-01-12] MEDS: KCL 20 MEQ TAB (K-DUR) PO SCH ×3 (10:18→17:37)
[2022-01-12] MEDS: EMPAGLIFLOZIN 10 MG TABLET (JARDIANCE) PO SCH (10:18)
[2022-01-12] MEDS: FLUTICASONE NASAL SPRAY (FLONASE) 16 GM BTL NS SCH (10:19)
[2022-01-12] MEDS: ASPIRIN E.C. 81 MG (ECOTRIN) TAB PO SCH (10:19)
[2022-01-12] MEDS: ISOSORBIDE MONONITRATE 30 MG (IMDUR) TAB PO SCH (10:19)
[2022-01-12] MEDS: LACTOBACILLUS ACIDOPHILUS (PROBIOTIC) CAPSULE PO SCH ×2 (10:19→21:12)
[2022-01-12] MEDS: OXYBUTYNIN (DITROPAN) 5 MG TAB PO SCH (10:20)
[2022-01-12] MEDS: MICONAZOLE 2% POWDER (DESENEX AF) 90 GM TOP SCH ×2 (10:20→21:13)
--- NOTE | 2022-01-12 11:14 | Occupational Ther Daily Note ---
OT Current Status-Daily Note Subjective Pt alert, sitting in recliner. Pt agrees to therapy. No c/o pain. Mental Status/Objective Patient Orientation: Person, Place, Time, Situation Attachments: Colostomy/Ileostomy, IV, Oxygen (2L) ADL-Treatment Therapy Code Descriptions/Definitions Functional [place] Measure: 0=Not Assessed/NA 4=Minimal Assistance 1=Total Assistance 5=Supervision or Setup 2=Maximal Assistance 6=Modified [place] 3=Moderate Assistance 7=Complete IndependenceSCALE: Activities may be completed with or without assistive devices. 1-Ikxzyxaizy-vjkmzcu completes the activity by him/herself with no assistance from a helper. 5-Set-up or Clean-up Assistance-helper sets up or cleans up; patient completes activity. [place] assists only prior to or following the activity. 4-Supervision or Touching Assistance-helper provides verbal cues and/or touching/steadying and/or contact guard assistance as patient completes act ivity. Assistance may be provided throughout the activity or intermittently. 3-Partial/Moderate Assistance-helper does LESS THAN HALF the effort. [place] lifts, holds or supports trunk or limbs, but provides less than half the effort. 2-Substantial/Maximal Assistance-helper does MORE THAN HALF the effort. [place] lifts or holds trunk or limbs and provides more than half the effort. 3-Oscvjhvzj-sfmlcs does ALL the effort. Patient does none of the effort to complete the activity. Or, the assistance of 2 or more helpers is required for the patient to complete the activity. If activity was not attempted, code reason: 7-Patient Refused. 9-Not Applicable-not attempted and the patient did not perform the activity before the current illness, exacerbation or injury. 10-Not Attempted due to Environmental Limitations-(lack of equipment, weather restraints, etc.). 88-Not Attempted due to Medical Conditions or Safety Concerns. Other Treatment Pt is progressing with B UE strength. Pt able to use light resistance theraband today. Due to IV in L elbow, pt unable to bend to complete most of theraband exercises with that UE. Pt able to complete B UE horizontal shldr abd/add. R UE bicep curl and tricep ext. All exercises 3 sets 10 reps with breaks between each set. After session, pt sitting in recliner with call light/phone in reach. All needs met in room. OT Correction Goals Telephone Advice Nurse Goals Time Frame: Feb 02, 2022 Eating (QC): 6 Oral Hygiene (QC): 5 Toileting Hygiene (QC): 88 Shower/Bathe Self (QC): 3 Upper Body Dressing (QC): 5 Lower Body Dressing (QC): 2 On/Off Footwear (QC): 2 Additional Goals: 1-Demonstrate ADL Tasks, 2-Verbalize Understanding, 3- ImproveStrength/Jennifer 1=Demonstrate adherence to instructed precautions during ADL tasks. 2=Patient will verbalize/demonstrate understanding of assistive devices/modifications for ADL. 3=Patient will improve strength/tolerance for activity to enable patient to perform ADL's. OT Education/Plan Problem List/Assessment Assessment: Decreased UE Strength Discharge Recommendations Plan/Recommendations: Continue POC Treatment Plan/Plan of Care Patient would benefit from OT for education, treatment and training to promote independence in ADL's, mobility, safety and/or upper extremity function for ADL's. Plan of Care: ADL Retraining, Functional Mobility, UE Funct Exercise/Act Treatment Duration: Feb 02, 2022 Frequency: 5 times per week Estimated Hrs Per Day: .25 hour per day Rehab Potential: Fair Time/GCodes Start Time: 10:25 Stop Time: 10:40 Total Time Billed (hr/min): 15 Billed Treatment Time 1 visit-EX 1 (15 min) FABIÁN PETERS Jan 12, 2022 11:14
--- NOTE | 2022-01-12 11:57 | Physical Therapy Daily Note ---
PT Daily Note-Current Subjective Patient presented sitting in her chair and agreed to walk out in the [place] today. Mental Status Patient Orientation: Person, Situation Attachments: Oxygen, IV Transfers SCALE: Activities may be completed with or without assistive devices. 1-Vvmolgtsoe-stixrfq completes the activity by him/herself with no assistance from a helper. 5-Set-up or Clean-up Assistance-helper sets up or cleans up; patient completes activity. Printer assists only prior to or following the activity. 4-Supervision or Touching Assistance-helper provides verbal cues and/or touching/steadying and/or contact guard assistance as patient completes activity. Assistance may be provided throughout the activity or intermittently. 3-Partial/Moderate Assistance-helper does LESS THAN HALF the effort. Printer lifts, holds or supports trunk or limbs, but provides less than half the effort. 2-Substantial/Maximal Assistance-helper does MORE THAN HALF the effort. Printer lifts or holds trunk or limbs and provides more than half the effort. 7-Gajrfqfgc-eirkpw does ALL the effort. Patient does none of the effort to complete the activity. Or, the assistance of 2 or more helpers is required for the patient to complete the activity. If activity was not attempted, code reason: 7-Patient Refused. 9-Not Applicable-not attempted and the patient did not perform the activity before the current illness, exacerbation or injury. 10-Not Attempted due to Environmental Limitations-(lack of equipment, weather restraints, etc.). 88-Not Attempted due to Medical Conditions or Safety Concerns. Sit to Stand (QC): 4 Toilet Transfer (QC): 3 Gait Training Does the Patient Walk?: Yes Distance: 150' Walk 10 feet (QC): 3 Walk 50 ft with 2 Turns(QC): 3 Walk 150 ft (QC): 3 Gait Assistive Device: FWW Patient ambulated 150' with FWW and min assist. Patient required one standing rest break while ambulating to catch her breath. Assessment Patient performed toilet transfer and ambulated with physical therapy. Patient ambulated 150' with min assist and FWW. Patient reported significant fatigue aft er ambulation and requested to sit and rest once we returned to her room. Patient is improving with ambulation distance and endurance. PT Correction Goals Correction Goals PT Correction Goals Time Frame: Jan 16, 2022 Roll Left & Right (QC): 6 Sit to Lying (QC): 4 Lying-Sitting on Side/Bed(QC): 4 Sit to Stand (QC): 4 (SBA) Chair/Wgx-kk-Izuss Xfer(QC): 4 (SBA) Toilet Transfer (QC): 4 Car Transfer (QC): 88 Does the Patient Walk: Yes Walk 10 feet (QC): 4 (SA) Walk 50ft with 2 Turns (QC): 4 (SBA) Walk 150 ft (QC): 88 Walking 10ft on Uneven Surface: 88 1 Step (curb) (QC): 88 4 Steps (QC): 88 12 Steps (QC): 88 Picking up an Object (QC): 88 Wheel 50 feet with 2 turns (QC: 9 Wheel 150 feet: 9 PT Plan Problem List Problem List: Activity Tolerance, Functional Strength, Safety, Balance, Gait, Transfer, Bed Mobility, ROM Treatment/Plan Treatment Plan: Continue Plan of Care Treatment Plan: Bed Mobility, Education, Functional Activity Jennifer, Functional Strength, Gait, Safety, Therapeutic Exercise, Transfers Treatment Duration: Jan 16, 2022 Frequency: 6 times per week Estimated Hrs Per Day: .25 hour per day Patient and/or Family Agrees t: Yes Time/GCodes Time In: 1049 Time Out: 1120 Total Billed Treatment Time: 31 Total Billed Treatment 1 Visit FA x2 31 min HAMMAD BROWN PT Jan 12, 2022 11:57
[2022-01-12] MEDS: ENOXAPARIN 40 MG/0.4 ML (LOVENOX) SYR SC SCH (14:12)
[2022-01-12 16:20] VITALS: BP 90/53
[2022-01-12] MEDS: GABAPENTIN 100 MG (NEURONTIN) CAP PO SCH (17:37)
[2022-01-12] MEDS: SERTRALINE 50 MG (ZOLOFT) TABLET PO SCH (17:37)
[2022-01-12] MEDS: SENNA W/DOCUSATE (SENOKOT S) TABLET PO SCH (17:37)
[2022-01-12] MEDS: LORATADINE (CLARITIN) 10 MG TAB PO SCH (17:37)
[2022-01-12 20:08] VITALS: BP 100/54
[2022-01-12] MEDS: traZODone 100 MG (DESYREL) TAB PO SCH (21:12)
[2022-01-13] MEDS: MEROPENEM 500 MG in NS (IVPB) 100 ML IV SCH ×3 (00:18→16:04)
[2022-01-13 05:51] LABS: BASOPHILS # (AUTO) 0.1 10^3/uL (0.0-0.1); BASOPHILS % (AUTO) 1 % (0-10); EOSINOPHILS # (AUTO) 0.6 10^3/uL (0.0-0.3); EOSINOPHILS % (AUTO) 3 % (0-10); HEMATOCRIT 30 % (35-52); HEMOGLOBIN 9.1 g/dL (11.5-16.0); LYMPHOCYTES # (AUTO) 5.3 10^3/uL (1.0-4.0); LYMPHOCYTES % (AUTO) 27 % (12-44); MEAN CORPUSCULAR HEMOGLOBIN 26 pg (25-34); MEAN CORPUSCULAR HGB CONC 30 g/dL (32-36); MEAN CORPUSCULAR VOLUME 87 fL (80-99); MEAN PLATELET VOLUME 9.4 fL (9.0-12.2); MONOCYTES # (AUTO) 1.3 10^3/uL (0.0-1.0); MONOCYTES % (AUTO) 6 % (0-12); NEUTROPHILS # (AUTO) 11.9 10^3/uL (1.8-7.8); NEUTROPHILS % (AUTO) 61 % (42-75); PLATELET COUNT 560 10^3/uL (130-400); WHITE BLOOD COUNT 19.5 10^3/uL (4.3-11.0)
[2022-01-13] MEDS: CYCLOBENZAPRINE 10 MG (FLEXERIL) TAB PO SCH ×3 (06:07→22:08)
[2022-01-13] MEDS: inSUlin ASPART (NovoLOG) 1 UNIT/0.01 ML (CHARGE PER UNIT) SC SCH ×4 (06:07→21:01)
[2022-01-13] MEDS: LEVOTHYROXINE 25 MCG (LEVOTHROID) TAB PO SCH (06:07)
[2022-01-13 06:08] LABS: CALCIUM 9.6 MG/DL (8.5-10.1)
[2022-01-13 06:13] LABS: CREATININE SERUM 0.72 MG/DL (0.60-1.30)
[2022-01-13 07:38] VITALS: BP 114/73
[2022-01-13] MEDS: RT-ALBUTEROL SULF 2.5 MG/3 ML PRE-MIX VIAL INH SCH ×2 (08:14→20:27)
[2022-01-13] MEDS: ASPIRIN E.C. 81 MG (ECOTRIN) TAB PO SCH (11:35)
[2022-01-13] MEDS: PANTOPRAZOLE 40 MG (PROTONIX) TAB PO SCH (11:36)
[2022-01-13] MEDS: FUROSEMIDE 40 MG (LASIX) TAB PO SCH (11:36)
[2022-01-13] MEDS: LACTOBACILLUS ACIDOPHILUS (PROBIOTIC) CAPSULE PO SCH ×2 (11:36→22:08)
[2022-01-13] MEDS: DOCUSATE SODIUM 100 MG (COLACE) CAP PO SCH ×2 (11:36→22:08)
[2022-01-13] MEDS: MAGNESIUM OXIDE (MAG-OX)400 MG TAB PO SCH (11:36)
[2022-01-13] MEDS: ISOSORBIDE MONONITRATE 30 MG (IMDUR) TAB PO SCH (11:36)
[2022-01-13] MEDS: LORazepam 0.5 MG (ATIVAN) TABLET PO SCH (11:36)
[2022-01-13] MEDS: SENNOSIDES 8.6 MG (SENOKOT) TAB PO SCH ×2 (11:36→22:08)
[2022-01-13] MEDS: lisINopril 5 MG (PRINIVIL) TABLET PO SCH (11:36)
[2022-01-13] MEDS: FLUTICASONE NASAL SPRAY (FLONASE) 16 GM BTL NS SCH (11:37)
[2022-01-13] MEDS: OXYBUTYNIN (DITROPAN) 5 MG TAB PO SCH (11:37)
[2022-01-13] MEDS: EMPAGLIFLOZIN 10 MG TABLET (JARDIANCE) PO SCH (11:37)
[2022-01-13] MEDS: MICONAZOLE 2% POWDER (DESENEX AF) 90 GM TOP SCH ×2 (11:37→22:08)
[2022-01-13] MEDS: SODIUM BICARBONATE 650 MG TABLET (NON-FORMULARY) PO SCH ×3 (11:38→22:08)
[2022-01-13] MEDS: KCL 20 MEQ TAB (K-DUR) PO SCH ×3 (11:56→17:55)
[2022-01-13] MEDS ORDERED: NS 100 ML (IVPB) BAG IV ONE (12:00)
[2022-01-13] MEDS ORDERED: HOLD METFORMIN - RECEIVED CONTRAST 20 ML VIAL IV SCH (12:00)
[2022-01-13] MEDS ORDERED: IOHEXOL 350 MG/ML 100 ML (OMNIPAQUE 350) VIAL IV ONE (12:00)
[2022-01-13] MEDS ORDERED: CATHETER FLUSH 10 ML SYR IV PRN (12:00)
--- NOTE | 2022-01-13 12:15 | Physical Therapy Daily Note ---
PT Daily Note-Current Subjective Pt. declines getting up out of bed for gait, agrees to therex in supine with head of bed up, Pt. requests assist to order lunch. Pain Location: No Pain Reported Mental Status Patient Orientation: Normal For Age Attachments: Colostomy/Ileostomy, Oxygen, Other-See Comments (pure wick) Transfers SCALE: Activities may be completed with or without assistive devices. 2-Xbamwmlueu-lsgiiee completes the activity by him/herself with no assistance from a helper. 5-Set-up or Clean-up Assistance-helper sets up or cleans up; patient completes activity. Elim assists only prior to or following the activity. 4-Supervision or Touching Assistance-helper provides verbal cues and/or touching/steadying and/or contact guard assistance as patient completes activity. Assistance may be provided throughout the activity or intermittently. 3-Partial/Moderate Assistance-helper does LESS THAN HALF the effort. Elim lifts, holds or supports trunk or limbs, but provides less than half the effort. 2-Substantial/Maximal Assistance-helper does MORE THAN HALF the effort. Elim l ifts or holds trunk or limbs and provides more than half the effort. 5-Llqinytuj-cfzegn does ALL the effort. Patient does none of the effort to complete the activity. Or, the assistance of 2 or more helpers is required for the patient to complete the activity. If activity was not attempted, code reason: 7-Patient Refused. 9-Not Applicable-not attempted and the patient did not perform the activity before the current illness, exacerbation or injury. 10-Not Attempted due to Environmental Limitations-(lack of equipment, weather restraints, etc.). 88-Not Attempted due to Medical Conditions or Safety Concerns. at end of Rx CT came to TRF pt. for Dx, pt. TRFd sup to sit to SPT min assist Exercises Supine Ex: Ankle pumps, Quad Set, Glut sets, Heel Slides, Short Arc Quads, Hip abd/add Supine Reps: 15 Treatments LE therex, TRF to w/c, ordered pts lunch as requested Assessment Current Status: Fair Progress PT Longterm Goals Enameler Goals PT Enameler Goals Time Frame: Jan 16, 2022 Roll Left & Right (QC): 6 Sit to Lying (QC): 4 Lying-Sitting on Side/Bed(QC): 4 Sit to Stand (QC): 4 (SBA) Chair/Tqz-wz-Lcail Xfer(QC): 4 (SBA) Toilet Transfer (QC): 4 Car Transfer (QC): 88 Does the Patient Walk: Yes Walk 10 feet (QC): 4 (SA) Walk 50ft with 2 Turns (QC): 4 (SBA) Walk 150 ft (QC): 88 Walking 10ft on Uneven Surface: 88 1 Step (curb) (QC): 88 4 Steps (QC): 88 12 Steps (QC): 88 Picking up an Object (QC): 88 Wheel 50 feet with 2 turns (QC: 9 Wheel 150 feet: 9 PT Plan Treatment/Plan Treatment Plan: Continue Plan of Care Treatment Plan: Bed Mobility, Education, Functional Activity Jennifer, Functional Strength, Gait, Safety, Therapeutic Exercise, Transfers Treatment Duration: Jan 16, 2022 Frequency: 6 times per week Estimated Hrs Per Day: .25 hour per day Patient and/or Family Agrees t: Yes Safety Risks/Education Patient Education: Transfer Techniques, Correct Positioning Teaching Recipient: Patient Teaching Methods: Demonstration, Discussion Response to Teaching: Verbalize Understanding, Return Demonstration, Reinforcement Needed Time/GCodes Time In: 1150 Time Out: 1205 Total Billed Treatment Time: 20 Total Billed Treatment 1,EX15m REBECCA COX VACUUM APPLICATOR OPERATOR Jan 13, 2022 12:15
[2022-01-13] MEDS: ENOXAPARIN 40 MG/0.4 ML (LOVENOX) SYR SC SCH (12:35)
--- NOTE | 2022-01-13 14:54 | Diagnostic Imaging Report ---
PROCEDURE: CT abdomen and pelvis with contrast. TECHNIQUE: Multiple contiguous axial images were obtained through the abdomen and pelvis after administration of intravenous contrast. Auto Exposure Controls were utilized during the CT exam to meet ALARA standards for radiation dose reduction. All CT scans use one or more of the following dose optimizing techniques: automated exposure control, MA and/or KvP adjustment based on patient size and exam type or iterative reconstruction. INDICATION: Sepsis, history of fistula, abdominal pain. COMPARISON: Study compared with exam from 05/23/2021. 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 The perisigmoidal left lower quadrant gas/fluid collection, presumed abscess on the prior, has since resolved. Edematous and inflammatory thickening of the distal colon and sigmoid has resolved. The bladder wall is non thickened. No bladder air. There is no small or large bowel obstruction. There are aortoiliac atherosclerotic vascular calcifications. Elevated left diaphragm, unchanged. There is no hydroureteronephrosis. Liver, gallbladder, and bile ducts are unremarkable. The adrenals are negative. The pancreas is nonfocal and nonacute. 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 Resolution of previous perisigmoidal abscess. No new fluid collection or adverse development. Resolution of inflammatory thickening and edema of the left colon and sigmoid. No adverse change. No bowel, biliary, or urinary tract obstruction. Dictated by: Dictated on workstation # [id number]
[2022-01-13] MEDS: LORATADINE (CLARITIN) 10 MG TAB PO SCH (17:53)
[2022-01-13] MEDS: GABAPENTIN 100 MG (NEURONTIN) CAP PO SCH (17:54)
[2022-01-13] MEDS: SERTRALINE 50 MG (ZOLOFT) TABLET PO SCH (17:54)
[2022-01-13] MEDS: SENNA W/DOCUSATE (SENOKOT S) TABLET PO SCH (17:54)
--- NOTE | 2022-01-13 18:17 | Progress Note - Hospitalist ---
Subjective HPI/CC On Admission Date Seen by Provider: Jan 13, 2022 Time Seen by Provider: 10:20 Subjective/Events-last exam She is having some back pain. She is not having any new abdominal pain. She denies fevers. Her ostomy bag was leaking. Objective Exam Vital Signs Vital Signs Date Time Temp Pulse Resp B/P (MAP) Pulse Ox O2 Delivery O2 Flow Rate FiO2 01/13/22 08:19 98 Nasal Cannula 2.00 01/13/22 07:38 35.6 97 20 114/73 (87) Capillary Refill : General Appearance: No Apparent Distress, Chronically ill Respiratory: Lungs Clear, No Respiratory Distress Cardiovascular: Regular Rate, Rhythm, No Murmur Gastrointestinal: Normal Bowel Sounds, Soft, Other (colostomy) Extremity: Normal Inspection, No Pedal Edema Neurologic/Psychiatric: Alert, Normal Mood/Affect Skin: Normal Color, Warm/Dry Results/Procedures Lab Laboratory Tests 01/13/22 05:18 Patient resulted labs reviewed. Assessment/Plan Assessment and Plan Assess & Plan/Chief Complaint UTI PNA Continue Merrem T2DM Sliding scale insulin HTN COPD Hypothyroidism Colostomy Continue home meds DVT prophylaxis: Lovenox Severe sepsis, resolved Diagnosis/Problems Diagnosis/Problems (1) UTI (urinary tract infection) Status: Acute (2) PNA (pneumonia) Status: Acute (3) T2DM (type 2 diabetes mellitus) Status: Chronic (4) Colostomy in place Status: Chronic (5) HTN (hypertension) Status: Chronic (6) COPD (chronic obstructive pulmonary disease) Status: Chronic JACQUELINE MCDANIEL MD Jan 13, 2022 18:16
[2022-01-13 19:40] VITALS: BP 116/66
[2022-01-13] MEDS: traZODone 100 MG (DESYREL) TAB PO SCH (22:08)
[2022-01-14] MEDS: MEROPENEM 500 MG in NS (IVPB) 100 ML IV SCH ×3 (01:36→16:00)
[2022-01-14] MEDS: CYCLOBENZAPRINE 10 MG (FLEXERIL) TAB PO SCH ×3 (07:07→21:48)
[2022-01-14] MEDS: LEVOTHYROXINE 25 MCG (LEVOTHROID) TAB PO SCH (07:07)
[2022-01-14] MEDS: inSUlin ASPART (NovoLOG) 1 UNIT/0.01 ML (CHARGE PER UNIT) SC SCH ×4 (07:08→22:29)
[2022-01-14 07:22] VITALS: BP 130/72
[2022-01-14] MEDS: RT-ALBUTEROL SULF 2.5 MG/3 ML PRE-MIX VIAL INH SCH ×3 (09:19→20:54)
[2022-01-14] MEDS: OXYBUTYNIN (DITROPAN) 5 MG TAB PO SCH (09:39)
[2022-01-14] MEDS: LORazepam 0.5 MG (ATIVAN) TABLET PO SCH (09:39)
[2022-01-14] MEDS: FUROSEMIDE 40 MG (LASIX) TAB PO SCH (09:39)
[2022-01-14] MEDS: ASPIRIN E.C. 81 MG (ECOTRIN) TAB PO SCH (09:39)
[2022-01-14] MEDS: lisINopril 5 MG (PRINIVIL) TABLET PO SCH (09:39)
[2022-01-14] MEDS: DOCUSATE SODIUM 100 MG (COLACE) CAP PO SCH ×2 (09:39→21:48)
[2022-01-14] MEDS: EMPAGLIFLOZIN 10 MG TABLET (JARDIANCE) PO SCH (09:39)
[2022-01-14] MEDS: PANTOPRAZOLE 40 MG (PROTONIX) TAB PO SCH (09:39)
[2022-01-14] MEDS: MAGNESIUM OXIDE (MAG-OX)400 MG TAB PO SCH (09:39)
[2022-01-14] MEDS: SENNOSIDES 8.6 MG (SENOKOT) TAB PO SCH ×2 (09:39→21:48)
[2022-01-14] MEDS: LACTOBACILLUS ACIDOPHILUS (PROBIOTIC) CAPSULE PO SCH ×2 (09:39→21:48)
[2022-01-14] MEDS: ISOSORBIDE MONONITRATE 30 MG (IMDUR) TAB PO SCH (09:40)
[2022-01-14] MEDS: MICONAZOLE 2% POWDER (DESENEX AF) 90 GM TOP SCH ×2 (09:40→21:49)
[2022-01-14] MEDS: FLUTICASONE NASAL SPRAY (FLONASE) 16 GM BTL NS SCH (09:40)
[2022-01-14] MEDS: KCL 20 MEQ TAB (K-DUR) PO SCH ×3 (09:40→18:22)
[2022-01-14] MEDS: SODIUM BICARBONATE 650 MG TABLET (NON-FORMULARY) PO SCH ×3 (09:40→21:48)
--- NOTE | 2022-01-14 10:09 | Cardiology Progress Note ---
Subjective Date Seen by Provider: Jan 14, 2022 Time Seen by Provider: 10:05 Subjective/Events-last exam Patient was seen at bedside, laying down comfortably, lethargic. Denied any chest pain or shortness of breath Review of Systems General: No Chills, No Night Sweats; Fatigue; No Malaise, No Appetite, No Other HEENT: No Head Aches, No Visual Changes, No Eye Pain, No Ear Pain, No Dysphasia, No Sinus Congestion, No Post Nasal Drip, No Sore Throat, No Other Pulmonary: No Dyspnea, No Cough, No Pleuritic Chest Pain, No Other Cardiovascular: No: Chest Pain, Palpitations, Orthopnea, Paroxysmal Noc. Dyspnea, Edema, Lt Headedness, Other Objective-Cardiology Exam Last Set of Vital Signs Vital Signs 01/14/22 01/14/22 07:22 09:20 Temp 36.6 Pulse 92 Resp 18 B/P (MAP) 130/72 (91) Pulse Ox 98 O2 Delivery Nasal Cannula O2 Flow Rate 2.00 I&O Intake and Output 01/14/22 00:00 Intake Total 2040 ml Output Total 2425 ml Balance -385 ml Intake Oral 1840 ml IV Total 200 ml Output Urine Total 1875 ml Stool Total 550 ml # Voids 1 General: Alert, Oriented X3, Cooperative HEENT: Atraumatic, PERRLA Neck: Supple, No JVD, No Thyromegaly Lungs: Clear to Auscultation, Normal Air Movement Heart: Normal S1, Normal S2, No Murmurs, Other (Irregular) Abdomen: Normal Bowel Sounds, Soft, No Tenderness, No Hepatosplenomegaly, No Masses Extremities: No Clubbing, No Cyanosis, No Edema, Normal Pulses, No Tenderness/Swelling Skin: No Rashes, No Breakdown, No Significant Lesion Neuro: Normal Gait, Normal Speech, Strength at 5/5 X4 Ext, Normal Tone, Sensation Intact Psych/Mental Status: Mental Status NL, Mood NL A/P-Cardiology Admission Diagnosis Chest pain Coronary artery disease 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 Hyperlipidemia Assessment/Plan Coronary artery disease, started on long-acting nitroglycerin, no further episodes of chest pain. Consider stress testing with her primary production underwriter as an outpatient. Chest pain, responded to nitroglycerin, maintained on isosorbide. Continue to monitor Congestive heart failure, chronic compensated left ventricular systolic and diastolic dysfunction. Tolerating current medications well. Pneumonia, receiving antibiotic, managed by primary care team UTI, received antibiotic and managed by primary care team 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, tolerating current medication, monitor blood pressure Hyperlipidemia, monitor lipids History of colostomy, followed and managed by primary care physician Hypothyroidism, followed and managed by primary care physician QIAN MEDINA MD Jan 14, 2022 10:08
[2022-01-14] MEDS: ENOXAPARIN 40 MG/0.4 ML (LOVENOX) SYR SC SCH (13:27)
[2022-01-14] MEDS: LORATADINE (CLARITIN) 10 MG TAB PO SCH (18:22)
[2022-01-14] MEDS: GABAPENTIN 100 MG (NEURONTIN) CAP PO SCH (18:22)
[2022-01-14] MEDS: SENNA W/DOCUSATE (SENOKOT S) TABLET PO SCH (18:23)
[2022-01-14] MEDS: SERTRALINE 50 MG (ZOLOFT) TABLET PO SCH (18:23)
[2022-01-14 19:21] VITALS: BP 121/57
[2022-01-14] MEDS: traZODone 100 MG (DESYREL) TAB PO SCH (21:48)
[2022-01-15] MEDS: inSUlin ASPART (NovoLOG) 1 UNIT/0.01 ML (CHARGE PER UNIT) SC SCH ×2 (06:23→11:33)
[2022-01-15 06:43] LABS: BASOPHILS # (AUTO) 0.1 10^3/uL (0.0-0.1); BASOPHILS % (AUTO) 1 % (0-10); EOSINOPHILS # (AUTO) 0.5 10^3/uL (0.0-0.3); EOSINOPHILS % (AUTO) 3 % (0-10); HEMATOCRIT 35 % (35-52); HEMOGLOBIN 10.4 g/dL (11.5-16.0); LYMPHOCYTES % (AUTO) 28 % (12-44); MEAN CORPUSCULAR HEMOGLOBIN 26 pg (25-34); MEAN CORPUSCULAR HGB CONC 30 g/dL (32-36); MEAN CORPUSCULAR VOLUME 87 fL (80-99); MONOCYTES # (AUTO) 1.3 10^3/uL (0.0-1.0); MONOCYTES % (AUTO) 7 % (0-12); NEUTROPHILS # (AUTO) 10.5 10^3/uL (1.8-7.8); NEUTROPHILS % (AUTO) 60 % (42-75); PLATELET COUNT 489 10^3/uL (130-400); WHITE BLOOD COUNT 17.6 10^3/uL (4.3-11.0)
[2022-01-15 06:58] LABS: CALCIUM 9.7 MG/DL (8.5-10.1)
[2022-01-15] MEDS: LEVOTHYROXINE 25 MCG (LEVOTHROID) TAB PO SCH (07:00)
[2022-01-15 07:02] LABS: CREATININE SERUM 0.72 MG/DL (0.60-1.30)
[2022-01-15 07:41] LABS: BASOPHILS % (MANUAL) 1 %; EOSINOPHILS % (MANUAL) 7 %; HYPOCHROMASIA SLIGHT; LYMPHOCYTES % (MANUAL) 28 %; MONOCYTES % (MANUAL) 7 %; NEUTROPHILS % (MANUAL) 57 %; STOMATOCYTES SLIGHT
[2022-01-15 08:00] VITALS: BP 101/70
[2022-01-15] MEDS: PANTOPRAZOLE 40 MG (PROTONIX) TAB PO SCH (08:37)
[2022-01-15] MEDS: LACTOBACILLUS ACIDOPHILUS (PROBIOTIC) CAPSULE PO SCH (08:38)
[2022-01-15] MEDS: CYCLOBENZAPRINE 10 MG (FLEXERIL) TAB PO SCH (08:38)
[2022-01-15] MEDS: SODIUM BICARBONATE 650 MG TABLET (NON-FORMULARY) PO SCH (08:38)
[2022-01-15] MEDS: DOCUSATE SODIUM 100 MG (COLACE) CAP PO SCH (08:38)
[2022-01-15] MEDS: FUROSEMIDE 40 MG (LASIX) TAB PO SCH (08:38)
[2022-01-15] MEDS: lisINopril 5 MG (PRINIVIL) TABLET PO SCH (08:38)
[2022-01-15] MEDS: ASPIRIN E.C. 81 MG (ECOTRIN) TAB PO SCH (08:38)
[2022-01-15] MEDS: SENNOSIDES 8.6 MG (SENOKOT) TAB PO SCH (08:38)
[2022-01-15] MEDS: OXYBUTYNIN (DITROPAN) 5 MG TAB PO SCH (08:39)
[2022-01-15] MEDS: EMPAGLIFLOZIN 10 MG TABLET (JARDIANCE) PO SCH (08:39)
[2022-01-15] MEDS: MAGNESIUM OXIDE (MAG-OX)400 MG TAB PO SCH (08:39)
[2022-01-15] MEDS: KCL 20 MEQ TAB (K-DUR) PO SCH (08:39)
[2022-01-15] MEDS: ISOSORBIDE MONONITRATE 30 MG (IMDUR) TAB PO SCH (08:39)
[2022-01-15] MEDS: FLUTICASONE NASAL SPRAY (FLONASE) 16 GM BTL NS SCH (08:39)
[2022-01-15] MEDS: LORazepam 0.5 MG (ATIVAN) TABLET PO SCH (08:39)
[2022-01-15] MEDS: RT-ALBUTEROL SULF 2.5 MG/3 ML PRE-MIX VIAL INH SCH (08:40)
[2022-01-15] MEDS: MICONAZOLE 2% POWDER (DESENEX AF) 90 GM TOP SCH (08:40)
[2022-01-15] MEDS ORDERED: LISI5TAB20 PO (09:49)
[2022-01-15] MEDS ORDERED: ISOS30TA82 PO (09:49)
[2022-01-15] MEDS ORDERED: ASPI-1238 PO (09:49)
--- NOTE | 2022-01-15 09:55 | Cardiology Progress Note ---
Subjective Date Seen by Provider: Jan 15, 2022 Time Seen by Provider: 09:54 Subjective/Events-last exam Sitting up, eating breakfast. Denies any chest pain. Review of Systems General: No Chills, No Night Sweats; Fatigue, Malaise; No Appetite, No Other HEENT: No Head Aches, No Visual Changes, No Eye Pain, No Ear Pain, No Dysphasia, No Sinus Congestion, No Post Nasal Drip, No Sore Throat, No Other Pulmonary: No Dyspnea, No Cough, No Pleuritic Chest Pain, No Other Cardiovascular: No: Chest Pain, Palpitations, Orthopnea, Paroxysmal Noc. Dyspnea, Edema, Lt Headedness, Other Objective-Cardiology Exam Last Set of Vital Signs Vital Signs 01/15/22 01/15/22 01/15/22 08:00 08:41 09:57 Temp 35.6 Pulse 95 Resp 18 B/P (MAP) 101/70 (80) Pulse Ox 99 O2 Delivery Nasal Cannula O2 Flow Rate 2.00 I&O Intake and Output 01/15/22 00:00 Intake Total 1420 ml Output Total 2800 ml Balance -1380 ml Intake Oral 1220 ml IV Total 200 ml Output Urine Total 2300 ml Stool Total 500 ml General: Alert, Oriented X3, Cooperative HEENT: Atraumatic, PERRLA Neck: Supple, No JVD, No Thyromegaly Lungs: Clear to Auscultation, Normal Air Movement Heart: Normal S1, Normal S2, No Murmurs, Other Abdomen: Normal Bowel Sounds, Soft, No Tenderness, No Hepatosplenomegaly, No Masses Extremities: No Clubbing, No Cyanosis, No Edema, Normal Pulses, No Tenderness/Swelling Skin: No Rashes, No Breakdown, No Significant Lesion Neuro: Normal Gait, Normal Speech, Strength at 5/5 X4 Ext, Normal Tone, Sensation Intact Psych/Mental Status: Mental Status NL, Mood NL Results Lab Laboratory Tests 01/15/22 06:28 A/P-Cardiology Admission Diagnosis Chest pain Coronary artery disease 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 Hyperlipidemia Assessment/Plan Coronary artery disease, started on long-acting nitroglycerin, no further episodes of chest pain. Consider stress testing with her primary pocket creaser as an outpatient. Chest pain, responded to nitroglycerin, maintained on isosorbide. Continue to monitor Congestive heart failure, chronic compensated left ventricular systolic and diastolic dysfunction. Tolerating current medications well. Pneumonia, receiving antibiotic, managed by primary care team UTI, received antibiotic and managed by primary care team 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, tolerating current medication, monitor blood pressure Hyperlipidemia, monitor lipids History of colostomy, followed and managed by primary care physician Hypothyroidism, followed and managed by primary care physician Supervisory-Addendum Brief Supervisory Addendum Participated in pt care: history, MDM, physical Personally performed: exam, history, MDM Care discussed with: CAMPOS Results interpretation: Verified all documentation Notes: Patient was seen and evaluated with [place], examination performed, management plan was discussed, agree with the current scribed note, I made few changes to the note using Italic font Patient is laying down in bed, complaining of bladder spasm Denies any further episodes of chest pain, no palpitation Continue with physical therapy Monitor blood pressure and lipids SALINAS BELLE Jan 15, 2022 09:55 QIAN MEDINA MD Jan 15, 2022 12:00
--- NOTE | 2022-01-15 09:57 | Discharge Summary ---
Discharge Summary Hospital Course Hospital Course Date of Admission: Jan 09, 2022 at 12:51 Admission Diagnosis : Pneumonia, UTI Family Physician/Provider: Josh Navarro MD Date of Discharge: 01/15/22 Discharge Diagnosis: Pneumonia, UTI Hospital Course: Sarah Morales is a 81 year old female with PMH HTN, T2DM, HLD, CAD, colostomy, who was admitted to [facility] for ongoing antibiotics for urinary tract infection and pneumonia. She completed a course of Merrem. Her hospital course was complicated by chest pain and she was started on Imdur and aspirin by Cardiology. They recommend an outpatient stress test. She was also started on Lisinopril for high blood pressure. She will continue therapy at her fdc facility. She should follow up with Dr. Navarro in a week or two. She was discharged back to her facility in stable condition. Labs and Pending Lab Test: Laboratory Tests 01/14/22 11:34: Glucometer 228H 01/14/22 15:49: Glucometer 120H 01/14/22 21:33: Glucometer 137H 01/15/22 05:56: Glucometer 147H 01/15/22 06:28: White Blood Count 17.6H, Red Blood Count 3.98, Hemoglobin 10.4L, Hematocrit 35, Mean Corpuscular Volume 87, Mean Corpuscular Hemoglobin 26, Mean Corpuscular Hemoglobin Concent 30L, Red Cell Distribution Width 14.5, Platelet Count 489H, Mean Platelet Volume 9.0, Immature Granulocyte % (Auto) 2, Neutrophils (%) (Auto) 60, Lymphocytes (%) (Auto) 28, Monocytes (%) (Auto) 7, Eosinophils (%) (Auto) 3, Basophils (%) (Auto) 1, Neutrophils # (Auto) 10.5H, Lymphocytes # (Auto) 5.0H, Monocytes # (Auto) 1.3H, Eosinophils # (Auto) 0.5H, Basophils # (Auto) 0.1, Immature Granulocyte # (Auto) 0.3H, Neutrophils % (Manual) 57, Lymphocytes % (Manual) 28, Monocytes % (Manual) 7, Eosinophils % (Manual) 7, B asophils % (Manual) 1, Hypochromasia SLIGHT, Stomatocytes SLIGHT, Sodium Level 128L, Potassium Level 5.0, Chloride Level 91L, Carbon Dioxide Level 27, Anion Gap 10, Blood Urea Nitrogen 15, Creatinine 0.72, Estimat Glomerular Filtration Rate 85, BUN/Creatinine Ratio 21, Glucose Level 151H, Calcium Level 9.7 Home Meds Active Aspirin EC (Aspirin) 81 Mg Tablet.dr 81 Mg PO DAILY 30 Days Lisinopril 5 Mg Tablet 5 Mg PO DAILY 30 Days Isosorbide Mononitrate ER (Isosorbide Mononitrate) 30 Mg Tab.er.24h 30 Mg PO DAILY 30 Days Reported Chloraseptic (Phenol) 20 Ml [place] 2 Sprays MM Q4H PRN Co Q-10 (Ubidecarenone) 50 Mg Capsule 50 Mg PO DAILY Ondansetron HCl 4 Mg Tablet 4 Mg PO Q8H PRN Remedy Antifungal (Miconazole Nitrate) 85 Gm Powder 1 Applic TP Q8H PRN APPLY TO MARLENE AREA AND UNDER BOTH BREASTS Muscle Rub Ultra Str Cream (Methyl Salicylate/Menth/Camph) 114 Gm Cream..g. 1 Applic TP Q6H PRN APPLY TO LOWER BACK Remedy Antifungal (Miconazole Nitrate) 118 Ml Cream.ml. 1 Applic TP BID APPLY TO GROIN FOR 14 DAYS STARTING 05-17-2021 Ketoconazole 15 Gm Cream..g. 1 Applic TOP BID PRN APPLY UNDER BREAST AND GROIN Vitamin C (Ascorbate Calcium) 500 Mg Tablet 500 Mg PO DAILY Acetaminophen 8 Hour (Acetaminophen) 650 Mg Tablet.er 650 Mg PO Q8H PRN Vitamin D3 (Cholecalciferol (Vitamin D3)) 25 Mcg Capsule 50 Mcg PO DAILY Ativan (Lorazepam) 0.5 Mg Tablet 0.5 Mg PO DAILY Oxybutynin Chloride ER (Oxybutynin Chloride) 10 Mg Tab.er.24 10 Mg PO DAILY Niferex Tablet (Iron Ag,Ps/C/Fa6/B12/Zn/SA/Sto) 1 Each Tablet 1 Each PO DAILY Metoprolol Succinate 25 Mg Tab.er.24h 25 Mg PO DAILY HOLD IF SBP <100 OR PULSE <600 Lactobacillus 1 Million Cfu Tb (L. Acidophilus/L.bulgaricus) 1 Each Tablet 1 Each PO BID Jardiance (Empagliflozin) 25 Mg Tablet 25 Mg PO DAILY Hydrocodone-Acetamin 5-325 mg (Hydrocodone/Acetaminophen) 1 Each Tablet 1-2 Each PO Q4H PRN Polyethylene Glycol 3350 17 Gm Powd.pack 17 Gm PO Q12H PRN Estrace Cream (Estradiol) 42.5 Gm Cream.appl 1 Gm VG MON,WE,FR @HS Cyclobenzaprine HCl 5 Mg Tablet 10 Mg PO Q8H PRN B-12 (Cyanocobalamin (Vitamin B-12)) 500 Mcg Tablet 500 Mcg PO Q48H Atorvastatin Calcium 20 Mg Tablet 20 Mg PO 1800 Aspercreme 10% Cream (Trolamine Salicylate/Aloe Vera) 35.4 Gm Cream..g. 1 Applic TP Q8H PRN APPLY TO LOWER BACK Proair Hfa (Albuterol Sulfate) 1 Puff Puff 2 Puff IH Q4H PRN Furosemide 40 Mg Tablet 40 Mg PO DAILY Bisacodyl 5 Mg Tablet.dr 10 Mg PO DAILY PRN Zyrtec (Cetirizine HCl) 10 Mg Tablet 5 Mg PO 1800 TAKES 1/2 (10MG) TABLET Biofreeze (Menthol) 118 Ml Gel..ml. 1 Applic TP Q6H PRN APPLY TO LOWER BACK Trazodone HCl 100 Mg Tablet 100 Mg PO HS Synthroid (Levothyroxine Sodium) 25 Mcg Tablet 25 Mcg PO DAILY Sertraline HCl 50 Mg Tablet 50 Mg PO 1800 Senna S Tablet (Sennosides/Docusate Sodium) 1 Each Tablet 3 Ea PO 1800 Milk of Magnesia (Magnesium Hydroxide) 400 Mg/5 Ml Oral.susp 30 Ml PO DAILY PRN Magox 400 (Magnesium Oxide) 400 Mg Tablet 400 Mg PO DAILY Gabapentin 100 Mg Capsule 200 Mg PO 1800 TAKES 2 (100MG) CAPSULES Fluticasone Propionate 16 Gm [place].susp 1 [place] NSEACH DAILY Instructions to Patient/Family Assessment/Instructions Take medications as prescribed. Follow up with your PCP. Return with worsening pain, shortness of breath, chest pain, or if you feel like you are getting worse. Follow Up Appt.: Dr. Navarro in a week or two Skilled NF Admit to: [facility] Certification (SNF) I certify that SNF services are required to be given on an inpatient basis because of the above named patient's need for fdc care on a continuing basis for the conditions(s) for which he/she was receiving inpatient hospital services prior to his/her transfer to the SNF. Nursing Home Facility Order: Nursing Services, Metal Machine Operator-Evaluate & Treat, Physical Therapy-Evaluate & Treat, Wound Care-Eval/Treat Oxygen Delivery Method: Nasal Cannula Discharge Diet: Low Sodium Diet, ADA Diet Daily Activity as Tolerated: Yes Resuscitation Status: Do Not Resuscitate Jacqueline Mcdaniel Jan 15, 2022 09:51 Discharge Physical Exam General: Alert, Oriented X3, Cooperative, No Acute Distress HEENT: Atraumatic, EOMI Lungs: Clear to Auscultation, Normal Air Movement Heart: Regular Rate, No Murmurs Abdomen: Normal Bowel Sounds, Soft, Other (colostomy) Extremities: No Edema, No Tenderness/Swelling Skin: No Rashes, No Significant Lesion Neuro: Normal Speech, Normal Tone Psych/Mental Status: Mental Status NL, Other (flat affect) JACQUELINE MCDANIEL MD Jan 15, 2022 09:56
--- NOTE | 2022-01-15 11:48 | Physical Therapy Daily Note ---
PT Daily Note-Current Subjective Patient presented laying in bed and agreed to participate in physical therapy. Patient is complaining of bladder spasms Mental Status Patient Orientation: Person, Situation Attachments: Colostomy/Ileostomy, Oxygen (3L NC) Transfers SCALE: Activities may be completed with or without assistive devices. 4-Yjrkhcqraw-hzxywya completes the activity by him/herself with no assistance from a helper. 5-Set-up or Clean-up Assistance-helper sets up or cleans up; patient completes activity. Freedom assists only prior to or following the activity. 4-Supervision or Touching Assistance-helper provides verbal cues and/or touching/steadying and/or contact guard assistance as patient completes activity. Assistance may be provided throughout the activity or intermittently. 3-Partial/Moderate Assistance-helper does LESS THAN HALF the effort. Freedom lifts, holds or supports trunk or limbs, but provides less than half the effort. 2-Substantial/Maximal Assistance-helper does MORE THAN HALF the effort. Freedom lifts or holds trunk or limbs and provides more than half the effort. 1-Hxtyfrycw-uyxrah does ALL the effort. Patient does none of the effort to complete the activity. Or, the assistance of 2 or more helpers is required for the patient to complete the activity. If activity was not attempted, code reason: 7-Patient Refused. 9-Not Applicable-not attempted and the patient did not perform the activity before the current illness, exacerbation or injury. 10-Not Attempted due to Environmental Limitations-(lack of equipment, weather restraints, etc.). 88-Not Attempted due to Medical Conditions or Safety Concerns. Roll Left & Right (QC): 6 Sit to Lying (QC): 6 Lying to Sitting/Side of Bed(Q: 3 Sit to Stand (QC): 4 Chair/Wwg-ta-Jfldv Xfer(QC): 4 Toilet Transfer (QC): 4 Car Transfer (QC): 9 Gait Training Does the Patient Walk?: Yes Distance: 150' Walk 10 feet (QC): 4 Walk 50 ft with 2 Turns(QC): 4 Walk 150 ft (QC): 4 Walking 10ft/uneven surface-QC: 4 Gait Persons Needed: 1 Gait Assistive Device: FWW Patient required CGA for ambulation but reported significant fatigue after ambulation of 150' with FWW. Wheelchair Training Does the Pt Use a Wheelchair?: No Wheel 50 ft with 2 turns (QC): 9 Wheel 150 ft (QC): 9 Stair Training 1 Step (curb) (QC): 9 4 Steps (QC): 9 12 Steps (QC): 9 Patient lives in [facility] and does not perform curb or step out or in facility Balance Picking up an Object (QC): 9 Assessment Patient performed bed mobility and ambulation during therapy session. Patient reported significant fatigue after ambulation and requested to sit in her chair and rest before she got back in bed. Patient required min assist for balance upon sitting EOB. Upon initial assessment patient is CGA for ambulation and transfers but needs min assist for supine <-> sit. Patient goals were addressed and were some were achieved. Patient is returning to her nursing facility upon discharge. PT Marine Service Operator Goals Marine Service Operator Goals PT Marine Service Operator Goals Time Frame: Jan 16, 2022 Roll Left & Right (QC): 6 (Met 01/15/22) Sit to Lying (QC): 4 (Me 01/15/22) Lying-Sitting on Side/Bed(QC): 4 Sit to Stand (QC): 4 (SBA) Chair/Nel-se-Iinzo Xfer(QC): 4 (SBA) Toilet Transfer (QC): 4 Car Transfer (QC): 88 Does the Patient Walk: Yes Walk 10 feet (QC): 4 (SA) Walk 50ft with 2 Turns (QC): 4 (SBA) Walk 150 ft (QC): 88 (4 Met 01/15/22) Walking 10ft on Uneven Surface: 88 (9) 1 Step (curb) (QC): 88 (9) 4 Steps (QC): 88 (9) 12 Steps (QC): 88 (9) Picking up an Object (QC): 88 (9) Wheel 50 feet with 2 turns (QC: 9 Wheel 150 feet: 9 PT Plan Treatment/Plan Treatment Plan: Discontinue PT, goals met Treatment Plan: Bed Mobility, Education, Functional Activity Jennifer, Functional Strength, Gait, Safety, Therapeutic Exercise, Transfers Treatment Duration: Jan 16, 2022 Frequency: 6 times per week Estimated Hrs Per Day: .25 hour per day Patient and/or Family Agrees t: Yes Time/GCodes Time In: 1057 Time Out: 1118 Total Billed Treatment Time: 21 Total Billed Treatment 1 Visit FA 21 min HAMMAD BROWN PT Jan 15, 2022 11:48
--- NOTE | 2022-01-15 12:45 | Therapy Team Discharge Summary ---
Therapy Discharge Summary Discharge Recommendations Date of Discharge Physical Therapy Patient performed bed mobility and ambulation during therapy session. Patient reported significant fatigue after ambulation and requested to sit in her chair and rest before she got back in bed. Patient required min assist for balance upon sitting EOB. Upon initial assessment patient is CGA for ambulation and transfers but needs min assist for supine <-> sit. Patient goals were addressed and were some were achieved. Patient is returning to her nursing facility upon discharge. Roll Left to Right (QC): 6 (Met 01/15/22) Sit to Lying (QC): 6 (Met 01/15/22) Lying to Sitting/Side of Bed(Q: 3 (Met 01/15/22) Sit to Stand (QC): 4 (Met 01/15/22) Chair/Ohl-ww-Znumj Xfer(QC): 4 (Met 01/15/22) Toilet Transfer (QC): 4 (Met 01/15/22) Car Transfer (QC): 9 Does the Patient Walk: Yes Mode of Locomotion: Both Anticipated Mode of Locomotion: Both Walk 10 feet (QC): 4 (Met 01/15/22) Walk 50 ft with 2 Turns(QC): 4 (Met 01/15/22) Walk 150 ft (QC): 4 (Met 01/15/22) Walking 10ft on uneven surface: 88 (QC 4/ met 01/15/22) Distance: 25' Gait Assistive Device: FWW Does the Pt Use a Wheelchair: No Wheel 50 ft with 2 turns (QC): 9 Wheel 150 ft (QC): 9 1 Step (curb) (QC): 9 4 Steps (QC): 9 12 Steps (QC): 9 Balance Sitting Static: Normal Balance Sitting Dynamic: Normal Balance-Standing Static: Good Picking up an Object (QC): 9 Occupational Therapy Decreased UE Strength Eating (QC): 6 (Per pt report.) Oral Hygiene (QC): 5 (Per pt report with oral sponge) Shower/Bathe Self (QC): 3 Upper Body Dressing (QC): 5 Lower Body Dressing (QC): 2 (Per clincial judgment) On/Off Footwear (QC): 1 Toileting Hygiene (QC): 88 (Pt has ostomy and urostomy, pt does not assist with emptying/changing.) PT Professor Of Environmental Engineering Goals Professor Of Environmental Engineering Goals PT Assisted Goals Time Frame: Jan 16, 2022 Roll Left to Right (QC): 6 (Met 01/15/22) Sit to Lying (QC): 4 (Me 01/15/22) Lying-Sitting on Side/Bed(QC): 4 Sit to Stand (QC): 4 (SBA) Chair/Oqi-dj-Eophn Xfer(QC): 4 (SBA) Car Transfer (QC): 88 Does the Patient Walk: Yes Walk 10 feet (QC): 4 (SA) Walk 10ft-Uneven Surface(QC): 88 (9) Walk 50ft with 2 Turns (QC): 4 (SBA) Walk 150 ft (QC): 88 (QC 4/Met 01/15/22) Wheel 50 feet with 2 turns (QC: 9 1 Step (curb) (QC): 88 (9) 4 Steps (QC): 88 (9) 12 Steps (QC): 88 (9) Picking up an Object (QC): 88 (9) OT Professor Of Environmental Engineering Goals Assisted Goals Time Frame: Feb 02, 2022 Eating (QC): 6 Oral Hygiene (QC): 5 Shower/Bathe Self (QC): 3 Upper Body Dressing (QC): 5 Lower Body Dressing (QC): 2 On/Off Footwear (QC): 2 Toileting Hygiene (QC): 88 Toilet/Commode Transfer (QC): 4 Additional Goals: 1-Demonstrate ADL Tasks, 2-Verbalize Understanding, 3- ImproveStrength/Jennifer 1=Demonstrate adherence to instructed precautions during ADL tasks. 2=Patient will verbalize/demonstrate understanding of assistive devices/modifications for ADL. 3=Patient will improve strength/tolerance for activity to enable patient to perform ADL's. HAMMAD BROWN PT Jan 15, 2022 12:45
--- NOTE | 2022-01-15 13:25 | Therapy Team Discharge Summary ---
Therapy Discharge Summary Discharge Recommendations Date of Discharge Jan 15, 2022 at 12:45 Physical Therapy Roll Left to Right (QC): 6 (Met 01/15/22) Sit to Lying (QC): 6 (Met 01/15/22) Lying to Sitting/Side of Bed(Q: 3 (Met 01/15/22) Sit to Stand (QC): 4 (Met 01/15/22) Chair/Jyt-cl-Irhbb Xfer(QC): 4 (Met 01/15/22) Toilet Transfer (QC): 4 (Met 01/15/22) Car Transfer (QC): 9 Does the Patient Walk: Yes Mode of Locomotion: Both Anticipated Mode of Locomotion: Both Walk 10 feet (QC): 4 (Met 01/15/22) Walk 50 ft with 2 Turns(QC): 4 (Met 01/15/22) Walk 150 ft (QC): 4 (Met 01/15/22) Walking 10ft on uneven surface: 88 (QC 4/ met 01/15/22) Distance: 25' Gait Assistive Device: FWW Does the Pt Use a Wheelchair: No Wheel 50 ft with 2 turns (QC): 9 Wheel 150 ft (QC): 9 1 Step (curb) (QC): 9 4 Steps (QC): 9 12 Steps (QC): 9 Balance Sitting Static: Normal Balance Sitting Dynamic: Normal Balance-Standing Static: Good Picking up an Object (QC): 9 Occupational Therapy Pt admitted to [facility] with UTI/sepsis. At [facility], pt has assistance with showering, LBD and footwear, she is independent with UE dressing, toileting and eating. Pt uses a w/c for distance and uses a walker. Pt made functional progress towards goals, meeting LTGs for showering, eating, and upper body dressing. OT txs f ocused on increasing BUE strength and activity tolerance, and increasing safety and independence with ADLs and functional mobility. Pt to discharge from facility, d/c from OT. Decreased UE Strength Eating (QC): 6 (Per pt report.) Oral Hygiene (QC): 5 (Per pt report with oral sponge) Shower/Bathe Self (QC): 3 Upper Body Dressing (QC): 5 Lower Body Dressing (QC): 2 (Per clincial judgment) On/Off Footwear (QC): 1 Toileting Hygiene (QC): 88 (Pt has ostomy and urostomy, pt does not assist with emptying/changing.) PT Residential Goals Chef Kitchen Manager Goals PT Chef Kitchen Manager Goals Time Frame: Jan 16, 2022 Roll Left to Right (QC): 6 (Met 01/15/22) Sit to Lying (QC): 4 (Me 01/15/22) Lying-Sitting on Side/Bed(QC): 4 Sit to Stand (QC): 4 (SBA) Chair/Jwy-nt-Fnxah Xfer(QC): 4 (SBA) Car Transfer (QC): 88 Does the Patient Walk: Yes Walk 10 feet (QC): 4 (SA) Walk 10ft-Uneven Surface(QC): 88 (9) Walk 50ft with 2 Turns (QC): 4 (SBA) Walk 150 ft (QC): 88 (QC 4/Met 01/15/22) Wheel 50 feet with 2 turns (QC: 9 1 Step (curb) (QC): 88 (9) 4 Steps (QC): 88 (9) 12 Steps (QC): 88 (9) Picking up an Object (QC): 88 (9) OT Chef Kitchen Manager Goals Residential Goals Time Frame: Feb 02, 2022 Eating (QC): 6 (met) Oral Hygiene (QC): 5 (met) Shower/Bathe Self (QC): 3 (met) Upper Body Dressing (QC): 5 (met) Lower Body Dressing (QC): 2 (not met) On/Off Footwear (QC): 2 (not met) Toileting Hygiene (QC): 88 Toilet/Commode Transfer (QC): 4 Additional Goals: 1-Demonstrate ADL Tasks, 2-Verbalize Understanding, 3- ImproveStrength/Jennifer 1=Demonstrate adherence to instructed precautions during ADL tasks. 2=Patient will verbalize/demonstrate understanding of assistive devices/modif ications for ADL. 3=Patient will improve strength/tolerance for activity to enable patient to perform ADL's. HAWK BAUER OT Jan 15, 2022 13:24
== END 2022-01-15 12:45 | DRG 689 ==
LOC: 4TH 12:51
PROVIDERS: ADMIT Internal Medicine; ATTEND Internal Medicine
DX: N39.0 Urinary tract infection, site not specified (principal); J18.9 Pneumonia, unspecified organism; J44.0 Chronic obstructive pulmonary disease with (acute) lower respiratory infection; I50.42 Chronic combined systolic (congestive) and diastolic (congestive) heart failure; I42.9 Cardiomyopathy, unspecified; I11.0 Hypertensive heart disease with heart failure; I25.119 Atherosclerotic heart disease of native coronary artery with unspecified angina pectoris; E78.2 Mixed hyperlipidemia; Z66 Do not resuscitate; E11.9 Type 2 diabetes mellitus without complications; E03.9 Hypothyroidism, unspecified; Z93.3 Colostomy status; Z79.84 Long term (current) use of oral hypoglycemic drugs
CPT/HCPCS: 36415; 71046; 74177; 80048; 82947; 85007; 85025; 85027; 94640; 94760

== ENCOUNTER 2022-02-07 12:55 | Inpatient (IN) | payer MEDICARE, MEDICAID ==
[~2022-02-07] VITALS: Ht 160 cm; Wt 58.2 kg
[2022-02-07] MEDS: fentaNYL INJ 100 MCG/2 ML AMP IVP PRN ×2 (01:25→16:50)
[~2022-02-07 12:55] MED LIST changes: +ASPI-1238 PO; -FLUC200T5 PO; +FLUC200T9 PO; +ISOS30TA82 PO
--- NOTE | 2022-02-07 13:12 | ED General ---
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 She resides at [facility] and presents today with reports of high heart rate and low blood pressure. Patient complains of some lower abdominal pain. She has colostomy and second stoma (Nursing at [place] states this is a fistula that continuously drains) Timing/Duration: 1-2 Days Severity: Moderate Associated Systoms: No Nausea/Vomiting; Weakness (ARABELLA NAM APRN) Allergies and Home Medications Allergies Coded Allergies: Fish Containing Products (Unverified Allergy, Unknown, 03/07/21) iodine (Unverified Allergy, Unknown, 03/07/21) peanut (Unverified Allergy, Unknown, 03/07/21) shrimp (Verified Allergy, Unknown, 04/30/19) Uncoded Allergies: POPCORN (Allergy, Unknown, 03/07/21) Patient Home Medication List Home Medication List Reviewed: Yes (ARABELLA NAM APRN) Acetaminophen (Acetaminophen 8 Hour) 650 Mg Tablet.er, 650 MG PO Q8H PRN for PAIN-BREAKTHROUGH, (Reported) Entered as Reported by: PEYTON DESIR on 05/19/21 1149 Albuterol Sulfate (Proair Hfa) 1 Puff Puff, 2 PUFF IH Q4H PRN for SHORTNESS OF BREATH, (Reported) Entered as Reported by: BRITTANEY HEBERT on 05/04/21 1436 Ascorbate Calcium (Vitamin C) 500 Mg Tablet, 500 MG PO DAILY, (Reported) Entered as Reported by: PEYTON DESIR on 05/19/21 1149 Aspirin (Aspirin EC) 81 Mg Tablet.dr, 81 MG PO DAILY Prescribed by: JACQUELINE MCDANIEL on 01/15/22 0949 Atorvastatin Calcium (Atorvastatin Calcium) 20 Mg Tablet, 20 MG PO 1800, (Reported) Entered as Reported by: BRITTANEY HEBERT on 05/04/21 1436 Bisacodyl (Bisacodyl) 5 Mg Tablet.dr, 10 MG PO DAILY PRN for CONSTIPATION-4TH LINE, (Reported) Entered as Reported by: KIM AVILA on 07/29/19 151 Cetirizine HCl (Zyrtec) 10 Mg Tablet, 5 MG PO 1800, (Reported) Entered as Reported by: SLIME AREVALO on 06/05/19 0917 Cholecalciferol (Vitamin D3) (Vitamin D3) 25 Mcg Capsule, 50 MCG PO DAILY, (Reported) Entered as Reported by: PEYTON DESIR on 05/19/21 1149 Cyanocobalamin (Vitamin B-12) (B-12) 500 Mcg Tablet, 500 MCG PO Q48H, (Reported) Entered as Reported by: BRITTANEY HEBERT on 05/04/21 143 Cyclobenzaprine HCl (Cyclobenzaprine HCl) 5 Mg Tablet, 10 MG PO Q8H PRN for MUSCLE SPASMS, (Reported) Entered as Reported by: BRITTANEY HEBERT on 05/04/21 143 Empagliflozin (Jardiance) 25 Mg Tablet, 25 MG PO DAILY, (Reported) Entered as Reported by: BRITTANEY HEBERT on 05/04/21 1436 Estradiol (Estrace Cream) 42.5 Gm Cream.appl, 1 GM VG MON,WE,FR @HS, (Reported) Entered as Reported by: BRITTANEY HEBERT on 05/04/21 143 Fluticasone Propionate (Fluticasone Propionate) 16 Gm [place].susp, 1 SPRAY NSEACH DAILY, (Reported) Entered as Reported by: SLIME AREVALO on 05/01/19 08 Furosemide (Furosemide) 40 Mg Tablet, 40 MG PO DAILY, (Reported) Entered as Reported by: KIM AVILA on 07/29/19 151 Gabapentin (Gabapentin) 100 Mg Capsule, 200 MG PO 1800, (Reported) Entered as Reported by: SLIME AREVALO on 05/01/19 08 Hydrocodone/Acetaminophen (Hydrocodone-Acetamin 5-325 mg) 1 Each Tablet, 1-2 EACH PO Q4H PRN for PAIN-MODERATE (5-7), (Reported) Entered as Reported by: BRITTANEY HEBERT on 05/04/21 143 Iron Ag,Ps/C/Fa6/B12/Zn/SA/Sto (Niferex Tablet) 1 Each Tablet, 1 EACH PO DAILY, (Reported) Entered as Reported by: BRITTANEY HEBERT on 05/04/21 1436 Isosorbide Mononitrate (Isosorbide Mononitrate ER) 30 Mg Tab.er.24h, 30 MG PO DAILY Prescribed by: JACQUELINE MCDANIEL on 01/15/22 0949 Ketoconazole (Ketoconazole) 15 Gm Cream..g., 1 APPLIC TOP BID PRN for REDNESS, (Reported) Entered as Reported by: PEYTON DESIR on 05/19/21 1149 L. Acidophilus/L.bulgaricus (Lactobacillus 1 Million Cfu Tb) 1 Each Tablet, 1 EA CH PO BID, (Reported) Entered as Reported by: BRITTANEY HEBERT on 05/04/21 143 Levothyroxine Sodium (Synthroid) 25 Mcg Tablet, 25 MCG PO DAILY, (Reported) Entered as Reported by: SLIME AREVALO on 05/01/19 08 Lisinopril (Lisinopril) 5 Mg Tablet, 5 MG PO DAILY Prescribed by: JACQUELINE MCDANIEL on 01/15/22 0949 Lorazepam (Ativan) 0.5 Mg Tablet, 0.5 MG PO DAILY, (Reported) Entered as Reported by: PEYTON DESIR on 05/19/21 1149 Magnesium Hydroxide (Milk of Magnesia) 400 Mg/5 Ml Oral.susp, 30 ML PO DAILY PRN for CONSTIPATION-7TH LINE, (Reported) Entered as Reported by: SLIME AREVALO on 05/01/19 08 Magnesium Oxide (Magox 400) 400 Mg Tablet, 400 MG PO DAILY, (Reported) Entered as Reported by: SLIME AREVALO on 05/01/19 0831 Menthol (Biofreeze) 118 Ml Gel..ml., 1 APPLIC TP Q6H PRN for SPASMS, (Reported) Entered as Reported by: SLIME AREVALO on 06/05/19 0917 Methyl Salicylate/Menth/Camph (Muscle Rub Ultra Str Cream) 114 Gm Cream..g., 1 APPLIC TP Q6H PRN for PAIN-BREAKTHROUGH, (Reported) Entered as Reported by: PEYTON DESIR on 05/19/21 1149 Metoprolol Succinate (Metoprolol Succinate) 25 Mg Tab.er.24h, 25 MG PO DAILY, (Reported) Entered as Reported by: BRITTANEY HEBERT on 05/04/21 143 Miconazole Nitrate (Remedy Antifungal) 118 Ml Cream.ml., 1 APPLIC TP BID, (Reported) Entered as Reported by: PEYTON DESIR on 05/19/21 114 Miconazole Nitrate (Remedy Antifungal) 85 Gm Powder, 1 APPLIC TP Q8H PRN for PREVENTION, (Reported) Entered as Reported by: PEYTON DESIR on 05/19/21 114 Ondansetron HCl (Ondansetron HCl) 4 Mg Tablet, 4 MG PO Q8H PRN for NAUSEA/VOMITING-1ST LINE, (Reported) Entered as Reported by: PEYTON DESIR on 01/03/22 142 Oxybutynin Chloride (Oxybutynin Chloride ER) 10 Mg Tab.er.24, 10 MG PO DAILY, (Reported) Entered as Reported by: BRITTANEY HEBERT on 05/04/21 143 Phenol (Chloraseptic) 20 Ml [place], 2 SPRAYS MM Q4H PRN for PAIN-BREAKTHROUGH, (Reported) Entered as Reported by: PEYTON DESIR on 01/03/22 142 Polyethylene Glycol 3350 (Polyethylene Glycol 3350) 17 Gm Powd.pack, 17 GM PO Q12H PRN for CONSTIPATION-2ND LINE, (Reported) Entered as Reported by: BRITTANEY HEBERT on 05/04/21 143 Sennosides/Docusate Sodium (Senna S Tablet) 1 Each Tablet, 3 EA PO 1800, (Reported) Entered as Reported by: SLIME AREVALO on 05/01/19830 Sertraline HCl (Sertraline HCl) 50 Mg Tablet, 50 MG PO 1800, (Reported) Entered as Reported by: SLIME AREVALO on 05/01/19830 Trazodone HCl (Trazodone HCl) 100 Mg Tablet, 100 MG PO HS, (Reported) Entered as Reported by: SLIME AREVALO on 05/01/19830 Trolamine Salicylate/Aloe Vera (Aspercreme 10% Cream) 35.4 Gm Cream..g., 1 APPLIC TP Q8H PRN for PAIN-BREAKTHROUGH, (Reported) Entered as Reported by: BRITTANEY HEBERT on 05/04/21 1436 Ubidecarenone (Co Q-10) 50 Mg Capsule, 50 MG PO DAILY, (Reported) Entered as Reported by: PEYTON DESIR on 01/03/22 1420 Review of Systems Review of Systems Constitutional: see HPI EENTM: see HPI Respiratory: no symptoms reported Cardiovascular: no symptoms reported Gastrointestinal: abdominal pain Genitourinary: no symptoms reported Musculoskeletal: no symptoms reported Skin: no symptoms reported Psychiatric/Neurological: No Symptoms Reported Hematologic/Lymphatic: No Symptoms Reported (ARABELLA NAM APRN) Past Fpuyvmw-Pixxcj-Qasrtd Hx Seasonal Allergies Seasonal Allergies: No (ARABELLA NAM APRN) Past Medical History Surgeries: Yes (BYPASS GRAFT, FOOT MANIPULATION, FLEXIBLE DIAG CYSTOSCOPY, colostomy) Bowel Surgery, CABG, Hysterectomy Respiratory: Yes (COPD) COPD Currently Using CPAP: No Currently Using BIPAP: No Cardiac: Yes Coronary Artery Disease, Heart Attack, 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 Neurological: No 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 Disorders: No [employer] History: Hysterectomy Sexually Transmitted Disease: No HIV/AIDS: No Genitourinary: Yes Renal Failure Gastrointestinal: Yes (colon mass, COLOSTOMY) Diverticulosis Musculoskeletal: Yes Arthritis Endocrine: Yes Diabetes, Insulin dep HEENT: Yes (WEARS GLASSES) Loss of Vision: Denies Cancer: No Psychosocial: Yes Sleep Difficulties, Anxiety, Depression Integumentary: No Blood Disorders: No Adverse Reaction/Blood Tranf: No (N/A) (ARABELLA NAM APRN) Family Medical History Alzheimer's disease Cardiovascular disease 19 FATHER 19 MOTHER Diabetes mellitus 19 MOTHER No Pertinent Family Hx (ARABELLA NAM APRN) Physical Exam Vital Signs Vital Signs - First Documented 02/07/22 13:00 Temp 36.9 Pulse 73 Resp 16 B/P (MAP) 100/51 (67) (ANNITA ARAUZ MD) Vital Signs Capillary Refill : (ARABELLA NAM APRN) Height, Weight, BMI Height: 0'60.00" Weight: 150lbs. 3.2oz. [id number]; 20.15 BMI Method:Stated General Appearance: No Apparent Distress, WD/WN, Chronically ill, Other (Thin. Very frail. In a soft and quiet voice when asked how she feels she states "terrible". States that she has some lower midline abdominal pain. She knows that she is at the hospital.) Eyes: Bilateral Eye Normal Inspection, Bilateral Eye PERRL, Bilateral Eye EOMI Neck: Full Range of Motion Respiratory: No Accessory Muscle Use, No Respiratory Distress Cardiovascular: Regular Rate, Rhythm, Normal Peripheral Pulses Gastrointestinal: Normal Bowel Sounds, Non Tender, Soft, Other (Reports abdominal pain but is really nontender upon palpation. The 2 stomas, urostomy and colostomy. Overlying skin is normal. Bowel sounds are present. Colostomy has dark stool in the bag. Other stoma has no output in it.) Extremity: Normal Capillary Refill, Normal Inspection Neurologic/Psychiatric: Alert Skin: Normal Color, Warm/Dry (ARABELLA NAM APRN) Focused Exam Lactate Level 02/07/22 13:20: Lactic Acid Level 1.08 (ANNITA ARAUZ MD) Lactic Acid Level Laboratory Tests Test 02/07/22 13:20 Lactic Acid Level 1.08 MMOL/L (0.50-2.00) (ANNITA ARAUZ MD) Progress/Results/Core Measures Suspected Sepsis SIRS Temperature: Pulse: Respiratory Rate: Laboratory Tests 02/07/22 13:20: White Blood Count 15.9H Blood Pressure / Mean: 02/07/22 13:20: Lactic Acid Level 1.08 Laboratory Tests 02/07/22 13:20: Creatinine 1.36H, INR Comment 1.1, Platelet Count 426H, Total Bilirubin 0.3 02/07/22 15:45: Creatinine 1.00 (ARABELLA NAM APRN) Results/Orders Lab Results Laboratory Tests Test 02/07/22 13:09 02/07/22 13:20 02/07/22 13:30 02/07/22 15:25 Range/Units Glucometer 309 H 70-110 MG/DL White Blood Count 15.9 H 4.3-11.0 10^3/uL Red Blood Count 3.41 L 3.80-5.11 10^6/uL Hemoglobin 9.0 L 11.5-16.0 g/dL Hematocrit 30 L 35-52 % Mean Corpuscular Volume 87 80-99 fL Mean Corpuscular Hemoglobin 26 25-34 pg Mean Corpuscular Hemoglobin Concent 31 L 32-36 g/dL Red Cell Distribution Width 14.4 10.0-14.5 % Platelet Count 426 H 130-400 10^3/uL Mean Platelet Volume 9.3 9.0-12.2 fL Immature Granulocyte % (Auto) 1 % Neutrophils (%) (Auto) 69 42-75 % Lymphocytes (%) (Auto) 22 12-44 % Monocytes (%) (Auto) 6 0-12 % Eosinophils (%) (Auto) 2 0-10 % Basophils (%) (Auto) 0 0-10 % Neutrophils # (Auto) 10.9 H 1.8-7.8 10^3/uL Lymphocytes # (Auto) 3.6 1.0-4.0 10^3/uL Monocytes # (Auto) 1.0 0.0-1.0 10^3/uL Eosinophils # (Auto) 0.3 0.0-0.3 10^3/uL Basophils # (Auto) 0.1 0.0-0.1 10^3/uL Immature Granulocyte # (Auto) 0.1 0.0-0.1 10^3/uL Neutrophils % (Manual) 78 % Lymphocytes % (Manual) 15 % Monocytes % (Manual) 5 % Eosinophils % (Manual) 2 % Blood Morphology Comment NORMAL Prothrombin Time 14.6 12.2-14.7 SEC INR Comment 1.1 0.8-1.4 Activated Partial Thromboplast Time 30 24-35 SEC Sodium Level 127 L 135-145 MMOL/L Potassium Level 6.1 H 3.6-5.0 MMOL/L Chloride Level 93 L 98-107 MMOL/L Carbon Dioxide Level 25 21-32 MMOL/L Anion Gap 9 5-14 MMOL/L Blood Urea Nitrogen 80 H 7-18 MG/DL Creatinine 1.36 H 0.60-1.30 MG/DL Estimat Glomerular Filtration Rate 40 BUN/Creatinine Ratio 59 Glucose Level 308 H 70-105 MG/DL Lactic Acid Level 1.08 0.50-2.00 MMOL/L Calcium Level 9.2 8.5-10.1 MG/DL Corrected Calcium 9.6 8.5-10.1 MG/DL Total Bilirubin 0.3 0.1-1.0 MG/DL Aspartate Amino Transf (AST/SGOT) 7 5-34 U/L Alanine Aminotransferase (ALT/SGPT) 6 0-55 U/L Alkaline Phosphatase 61 40-136 U/L Total Protein 6.9 6.4-8.2 GM/DL Albumin 3.5 3.2-4.5 GM/DL Beta-Hydroxybutyrate (Chem panel) 0.43 H 0.00-0.27 MMOL/L Arterial Blood pH 7.23 *L 7.37-7.43 Urine Color YELLOW Urine Clarity SL CLOUDY Urine pH 6.0 5-9 Urine Specific [place] 1.010 L 1.016-1.022 Urine Protein NEGATIVE NEGATIVE Urine Glucose (UA) 3+ H NEGATIVE Urine Ketones NEGATIVE NEGATIVE Urine Nitrite NEGATIVE NEGATIVE Urine Bilirubin NEGATIVE NEGATIVE Urine Urobilinogen 0.2 < = 1.0 MG/DL Urine Leukocyte Esterase 3+ H NEGATIVE Urine RBC (Auto) TRACE-I H NEGATIVE Urine RBC 0-2 /HPF Urine WBC 50-100 H /HPF Urine Squamous Epithelial Cells NONE /HPF Urine Crystals NONE /LPF Urine Bacteria FEW H /HPF Urine Casts NONE /LPF Urine Mucus NEGATIVE /LPF Urine Culture Indicated CULTURE PENDING Test 02/07/22 15:45 02/07/22 15:46 Range/Units Sodium Level 130 L 135-145 MMOL/L Potassium Level 5.5 H 3.6-5.0 MMOL/L Chloride Level 98 98-107 MMOL/L Carbon Dioxide Level 21 21-32 MMOL/L Anion Gap 11 5-14 MMOL/L Blood Urea Nitrogen 71 H 7-18 MG/DL Creatinine 1.00 0.60-1.30 MG/DL Estimat Glomerular Filtration Rate 57 BUN/Creatinine Ratio 71 Glucose Level 98 70-105 MG/DL Calcium Level 8.9 8.5-10.1 MG/DL Procalcitonin 0.04 <0.10 NG/ML Glucometer 94 70-110 MG/DL (ANNITA ARAUZ MD) Medications Given in ED Current Medications Medications Dose Ordered Sig/Geeta Route Start Time Stop Time Status Last Admin Dose Admin Diatrizoate Meglum/ Diatrizoate Sod 30 ml ONCE ONCE PO 02/07/22 14:30 02/07/22 14:31 DC 02/07/22 14:39 30 ML Fentanyl Citrate 25 mcg ONCE PRN IVP 02/07/22 13:15 02/07/22 17:20 DC 02/07/22 01:25 25 MCG Insulin Human Regular 6 unit ONCE ONCE IV 02/07/22 14:00 02/07/22 14:05 DC 02/07/22 14:10 6 UNIT Sodium Polystyrene Sulfonate 30 gm ONCE ONCE PO 02/07/22 14:00 02/07/22 14:05 DC 02/07/22 14:10 30 GM (ANNITA ARAUZ MD) Vital Signs/I&O 02/07/22 02/07/22 02/07/22 13:00 13:00 13:00 Temp 36.9 Pulse 73 Resp 16 B/P (MAP) 100/51 (67) Pulse Ox 100 100 O2 Delivery Nasal Cannula Nasal Cannula Nasal Cannula O2 Flow Rate 3.00 3.00 3.00 (ANNITA ARAUZ MD) Vital Signs/I&O Capillary Refill : (ARABELLA NAM APRN) Departure Communication (Admissions) 1605-Because of the full bladder on CT we did place a Guo catheter into the urethra with resultant milky appearing urine. At this time after 2 L of IV fluids her blood pressure is up to 101/47, heart rate 98. Spoke with Dr. Mcdaniel, will admit on Rocephin empirically based on most recent urine culture. I did consult Dr. Whaley and he will see the patient tomorrow. Occult blood stool test at the bedside was negative though it is dark and she has a significantly disproportionatly elevated BUN Family Conversation NAME: DARINEL [facility] REC#: [id number] PT STATUS: REG ER : 1940 PHYSICIAN: ARABELLA NAM APRN ADMIT DATE: 02/07/22/ER Draft Date of Exam:02/07/22 CT ABDOMEN/PELVIS WO PROCEDURE: CT abdomen and pelvis without contrast. TECHNIQUE: Multiple contiguous axial images were obtained through the abdomen and pelvis without the use of intravenous contrast. Auto Exposure Controls were utilized during the CT exam to meet ALARA standards for radiation dose reduction. INDICATION: Abdominal pain. COMPARISON: January 13, 2022. FINDINGS: Stable elevation of the left hemidiaphragm with associated bibasilar scarring and/or atelectasis. Tiny left pleural effusion. Median sternotomy. The unenhanced liver and spleen are unremarkable. The adrenal glands appear stable from the prior examination. The unenhanced pancreas is unremarkable. Layering densities are identified within the gallbladder without significant inflammatory stranding about the gallbladder. No hydronephrosis. Scattered vascular calcifications without aneurysmal dilatation of the abdominal aorta. Diverting colostomy is present. Soft tissue density along the left aspect of the uterus extending along the left aspect of the urinary bladder extending into the subcutaneous tissues anteriorly is again identified. This appears similar to the prior examination without focal drainable fluid collection. There is however significant mural thickening of the urinary bladder noted on the left superiorly. No bowel obstruction or pneumatosis. No new adenopathy, focal fluid collection, or free air. Scattered osseous degenerative changes without acute osseous abnormality. IMPRESSION: Persistent soft tissue fullness within the left aspect of the pelvis, particularly associated with the urinary bladder, uterus, and anterior pelvic wall. No drainable fluid collection is seen at this location and findings could simply relate to scarring from prior surgery and fistula. However, there is focal mural thickening involving the urinary bladder and focal cystitis versus infiltrative mass lesion should be considered. Recommend correlation with urinalysis with possible cystoscopy if necessary. Diverting transverse colostomy without bowel obstruction. Minimal sludge and/or stones within the gallbladder without adjacent inflammatory stranding. Additional findings as above. Dictated on workstation # [id number] Dict: 02/07/22 1446 Trans: 02/07/22 1504 [id number] Interpreted by: ALYSSA OSHEA MD Electronically signed by: NAME: DARINEL MARTE [facility] REC#: [id number] PT STATUS: REG ER : 1940 PHYSICIAN: ARABELLA NAM APRN ADMIT DATE: 02/07/22/ER Draft Date of Exam:02/07/22 CHEST 1 VIEW, AP/PA ONLY INDICATION: Weakness. TIME OF EXAM: 1:15 PM Correlation is made with prior chest 01/07/2022. Changes of median sternotomy and CABG are noted. Left hemidiaphragm is chronically elevated. There is resultant atelectasis left base. Otherwise lungs are clear. No significant effusion or pneumothorax is seen. IMPRESSION: Subsegmental atelectasis left base. The study is otherwise unremarkable. Dictated on workstation # [id number] Dict: 02/07/22 1325 Trans: 02/07/22 1327 [id number] [id number] Interpreted by: YANG DILLON MD Electronically signed by: (ARABELLA NAM APRN) Impression Primary Impression: Sepsis Additional Impressions: Complicated urinary tract infection Colostomy in place Disposition: ADMITTED INPATIENT Condition: Stable Admissions Decision to Admit Reason: Admit from ER (General) (ARABELLA NAM APRN) Departure-Patient Inst. Referrals: MACEY CAO MD (PCP/Family) Primary Care Physician ATTENDING PHYSICIAN NOTE: I was physically present as attending physician in the emergency department during the care of this patient, but I was not directly involved in the decision making or delivery of care for this patient. (ANNITA ARAUZ MD) ARABELLA NAM APRN Feb 07, 2022 13:12 ANNITA ARAUZ MD Feb 07, 2022 18:40
--- NOTE | 2022-02-07 13:28 | Diagnostic Imaging Report ---
INDICATION: Weakness. TIME OF EXAM: 1:15 PM Correlation is made with prior chest 01/07/2022. Changes of median sternotomy and CABG are noted. Left hemidiaphragm is chronically elevated. There is resultant atelectasis left base. Otherwise lungs are clear. No significant effusion or pneumothorax is seen. IMPRESSION: Subsegmental atelectasis left base. The study is otherwise unremarkable. Dictated by: Dictated on workstation # [id number]
[2022-02-07 13:39] LABS: BASOPHILS # (AUTO) 0.1 10^3/uL (0.0-0.1); BASOPHILS % (AUTO) 0 % (0-10); EOSINOPHILS # (AUTO) 0.3 10^3/uL (0.0-0.3); EOSINOPHILS % (AUTO) 2 % (0-10); HEMATOCRIT 30 % (35-52); LYMPHOCYTES # (AUTO) 3.6 10^3/uL (1.0-4.0); LYMPHOCYTES % (AUTO) 22 % (12-44); MEAN CORPUSCULAR HEMOGLOBIN 26 pg (25-34); MEAN CORPUSCULAR HGB CONC 31 g/dL (32-36); MEAN CORPUSCULAR VOLUME 87 fL (80-99); MEAN PLATELET VOLUME 9.3 fL (9.0-12.2); MONOCYTES % (AUTO) 6 % (0-12); NEUTROPHILS # (AUTO) 10.9 10^3/uL (1.8-7.8); NEUTROPHILS % (AUTO) 69 % (42-75); PLATELET COUNT 426 10^3/uL (130-400); WHITE BLOOD COUNT 15.9 10^3/uL (4.3-11.0)
[2022-02-07] MEDS ORDERED: LACTATED RINGERS 1,000 ML IV SCH (13:45)
[2022-02-07 13:46] LABS: ALBUMIN 3.5 GM/DL (3.2-4.5); POTASSIUM 6.1 MMOL/L (3.6-5.0)
[2022-02-07 13:47] LABS: CALCIUM 9.2 MG/DL (8.5-10.1)
[2022-02-07 13:48] LABS: TOTAL PROTEIN 6.9 GM/DL (6.4-8.2)
[2022-02-07 13:50] LABS: BILIRUBIN,TOTAL 0.3 MG/DL (0.1-1.0)
[2022-02-07 13:52] LABS: CREATININE SERUM 1.36 MG/DL (0.60-1.30)
[2022-02-07 13:53] LABS: INR 1.1 (0.8-1.4); PROTHROMBIN TIME PATIENT 14.6 SEC (12.2-14.7)
[2022-02-07] MEDS ORDERED: SOD POLYSTERENE 15 GM/60 ML (KAYEXALATE) UNIT DOSE PO ONE (14:00)
[2022-02-07] MEDS ORDERED: inSUlin (REGULAR) HUMAN 1 UNIT/0.01 ML (CHARGE PER UNIT) IV ONE (14:00)
[2022-02-07 14:10] LABS: LYMPHOCYTES % (MANUAL) 15 %; NEUTROPHILS % (MANUAL) 78 %
[2022-02-07 14:11] LABS: EOSINOPHILS % (MANUAL) 2 %; MONOCYTES % (MANUAL) 5 %; RBC MORPH NORMAL
[2022-02-07] MEDS ORDERED: DIATRIZOATE MEGLUM/SODIUM 37% 120 ML (GASTROGRAFIN) PO ONE (14:30)
--- NOTE | 2022-02-07 15:04 | Diagnostic Imaging Report ---
PROCEDURE: CT abdomen and pelvis without contrast. TECHNIQUE: Multiple contiguous axial images were obtained through the abdomen and pelvis without the use of intravenous contrast. Auto Exposure Controls were utilized during the CT exam to meet ALARA standards for radiation dose reduction. INDICATION: Abdominal pain. COMPARISON: January 13, 2022. FINDINGS: Stable elevation of the left hemidiaphragm with associated bibasilar scarring and/or atelectasis. Tiny left pleural effusion. Median sternotomy. The unenhanced liver and spleen are unremarkable. The adrenal glands appear stable from the prior examination. The unenhanced pancreas is unremarkable. Layering densities are identified within the gallbladder without significant inflammatory stranding about the gallbladder. No hydronephrosis. Scattered vascular calcifications without aneurysmal dilatation of the abdominal aorta. Diverting colostomy is present. Soft tissue density along the left aspect of the uterus extending along the left aspect of the urinary bladder extending into the subcutaneous tissues anteriorly is again identified. This appears similar to the prior examination without focal drainable fluid collection. There is however significant mural thickening of the urinary bladder noted on the left superiorly. No bowel obstruction or pneumatosis. No new adenopathy, focal fluid collection, or free air. Scattered osseous degenerative changes without acute osseous abnormality. IMPRESSION: Persistent soft tissue fullness within the left aspect of the pelvis, particularly associated with the urinary bladder, uterus, and anterior pelvic wall. No drainable fluid collection is seen at this location and findings could simply relate to scarring from prior surgery and fistula. However, there is focal mural thickening involving the urinary bladder and focal cystitis versus infiltrative mass lesion should be considered. Recommend correlation with urinalysis with possible cystoscopy if necessary. Diverting transverse colostomy without bowel obstruction. Minimal sludge and/or stones within the gallbladder without adjacent inflammatory stranding. Additional findings as above. Dictated by: Dictated on workstation # [id number]
[2022-02-07 15:32] LABS: BILIRUBIN,URINE NEGATIVE (NEGATIVE); CLARITY,URINE SL CLOUDY; COLOR,URINE YELLOW; GLUCOSE, URINE (UA) 3+ (NEGATIVE); KETONES,URINE NEGATIVE (NEGATIVE); LEUKOCYTE ESTERASE ,URINE 3+ (NEGATIVE); NITRITE,URINE NEGATIVE (NEGATIVE); PROTEIN,URINE NEGATIVE (NEGATIVE)
[2022-02-07 15:45] LABS: BACTERIA,URINE FEW /HPF; RBC,URINE 0-2 /HPF; WBC,URINE 50-100 /HPF
[2022-02-07] MEDS ORDERED: cefTRIAXone 1 GM PRE-MIX 50 ML IV ONE (16:00)
[2022-02-07 16:02] LABS: POTASSIUM 5.5 MMOL/L (3.6-5.0)
[2022-02-07 16:03] LABS: CALCIUM 8.9 MG/DL (8.5-10.1)
[2022-02-07] MEDS ORDERED: fentaNYL INJ 100 MCG/2 ML AMP IVP PRN (16:30)
[2022-02-07 16:38] VITALS: BP 106/45
[2022-02-07] MEDS ORDERED: ONDANSETRON 4 MG/2 ML (SDV) Z0FRAN IV PRN (17:15)
[2022-02-07] MEDS ORDERED: polyethylene glycoL POWDER 17 GM (MIRALAX) PACK PO PRN (17:15)
[2022-02-07] MEDS ORDERED: ANTACID SUSP 30 ML UDC (MYLANTA) PO PRN (17:15)
[2022-02-07] MEDS ORDERED: ONDANSETRON 4 MG (ZOFRAN) ORAL DISSOLVE TAB PO PRN (17:15)
[2022-02-07] MEDS ORDERED: PIPERACILLIN SODIUM/TAZOBACTAM 4.5 GM in NS (IVPB) 100 ML IV NR (17:30)
[2022-02-07] MEDS: NS IV 1000 ML 1,000 ML IV SCH (18:14)
[2022-02-07] MEDS: ENOXAPARIN 40 MG/0.4 ML (LOVENOX) SYR SC SCH (19:26)
--- NOTE | 2022-02-07 19:29 | Tele-ICU Progress Note ---
Subjective Date Seen by a Provider: Feb 07, 2022 Time Seen by a Provider: 07:00 Subjective/Events-last exam This virtual visit was conducted using real time audio/video. Thank you for asking us to see this patient for urosepsis and COPD on home O2 3 LPM. PMH: COPD CAD HTN CKD OA Colovesical fistula, colostomy anxiety. SH: smoking history Y FH: Non-contributory ROS:as in HPI PE: VSS. 94/39 O2 sat 100% on 3 LPM NC. HEENT: No obvious masses, adenopathy or JVD. Chest: clear to auscultation. CV: RRR S1 S2 No murmur or added sounds. Abd: Non-tender. Bowel sounds Y. : Unremarkable. Guo Y. 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 No obvious focal findings. Extremities: No edema. Capillary refill < 3 seconds. Skin: unremarkable. Results: Elevated BUN 71, WCC 15.9. Decreased Hb 9.0. UA pos. CXR: unrem.. Available chart/ vitals / labs / images reviewed. Video assessment done using teleICU camera, rest of exam as per RN. A/P: Respiratory insufficiency: Continue present management with NC Monitor for increasing oxygenation needs and/or need for intubation. Critical Care: critically ill patient. Cont. IVF, Zosyn,SSI, Joselyn. Discussed with MARIAM Blanchard. Asked RN to reach out to eICU if any questions or concerns later. Time spent with patient/coordination of care with other health professionals (mins): 28 Sepsis Event Evaluation Height, Weight, BMI Height: 0'60.00" Weight: 150lbs. 3.2oz. 68.832477kn; 20.97 BMI Method:Stated Focused Exam Lactate Level 02/07/22 13:20: Lactic Acid Level 1.08 Exam Exam Patient acknowledged, consented, and participated in this virtual visit which was conducted using real time audio/video Vital Signs Date Time Temp Pulse Resp B/P (MAP) Pulse Ox O2 Delivery O2 Flow Rate FiO2 02/07/22 18:00 66 11 105/47 100 Nasal Cannula 3.00 02/07/22 17:00 68 8 88/71 100 Nasal Cannula 3.00 02/07/22 16:56 69 02/07/22 16:50 100 Nasal Cannula 3.00 02/07/22 16:38 69 16 106/45 100 Nasal Cannula 3.00 02/07/22 13:00 36.9 73 16 100/51 (67) 100 Nasal Cannula 3.00 02/07/22 13:00 Nasal Cannula 3.00 02/07/22 13:00 100 Nasal Cannula 3.00 Height & Weight Height: 0'60.00" Weight: 150lbs. 3.2oz. 68.802542ku; 20.97 BMI Method:Stated General Appearance: No Apparent Distress, WD/WN, Chronically ill, Other (Thin. Very frail. In a soft and quiet voice when asked how she feels she states "terrible". States that she has some lower midline abdominal pain. She knows that she is at the hospital.) Neck: Full Range of Motion Respiratory: No Accessory Muscle Use, No Respiratory Distress Cardiovascular: Regular Rate, Rhythm, Normal Peripheral Pulses Capillary Refill: Less Than 3 Seconds Extremity: Normal Capillary Refill, Normal Inspection Neurologic/Psychiatric: Alert Skin: Normal Color, Warm/Dry Results Lab Laboratory Tests 02/07/22 13:20 02/07/22 15:45 Assessment/Plan Assessment/Plan See free text Critical Care: Critically Ill Patient CALLIE CLEMENT MD Feb 07, 2022 19:29
--- NOTE | 2022-02-07 20:09 | History & Physical-Hospitalist ---
History of Present Illness HPI/Chief Complaint Sarah Moraels is a 81 year old female with PMH HTN, COPD, CAD, T2DM, CKD2, diverticulosis, arthritis, history of colovesicular fistula, chronic respiratory failure, insomnia, anxiety, colostomy, who presented with lethargy. Upon my exam, she had no complaints. She denies fevers. She denies chest pain. She is not short of breath. She denies abdominal pain. She denies nausea and vomiting. She denies any change in her ostomy output. She denies bloody output. She has no urinary symptoms. Source: patient Exam Limitations: no limitations Date Seen 02/07/22 Time Seen by a Provider: 16:10 Attending Physician Jacqueline Mcdaniel MD PCP Josh Navarro MD Referring Physician Date of Admission Feb 07, 2022 at 15:55 Home Medications & Allergies Home Medications Reviewed patient Home Medication Reconciliation performed by pharmacy medication reconciliations infectious disease technician and/or nursing. Patients Allergies have been reviewed. Allergies Allergies Coded Allergies Fish Containing Products (Unverified Allergy, Unknown, 03/07/21) iodine (Unverified Allergy, Unknown, 03/07/21) peanut (Unverified Allergy, Unknown, 03/07/21) shrimp (Verified Allergy, Unknown, 04/30/19) Uncoded Allergies POPCORN ( Allergy, Unknown, 03/07/21) Past Fmrfoko-Ndegrv-Lsfkjj Hx Patient Social History Tobacco Use?: No Smoking Status: Never a Smoker Smokeless Tobacco Frequency: Never a User Use of E-Cig and/or Vaping dev: No Use of E-Cig and/or Vaping Juan: Never a User Substance use?: No Alcohol Use?: No Pt feels they are or have been: No Immunizations Up To Date Date of Influenza Vaccine: Aug 25, 2021 Tetanus Booster (TDap): Unknown Date of Pneumonia Vaccine: Aug 28, 2019 Seasonal Allergies Seasonal Allergies: No Current Status status: No status: No Advance Directives: Yes Advance Directive Location: Copy placed in chart Communicates: Verbally Primary Language: Lao Preferred Spoken Language: Lao Is interpretation needed?: No Past Medical History Surgeries: Bowel Surgery, CABG, Hysterectomy COPD Currently Using CPAP: No Currently Using BIPAP: No Coronary Artery Disease, Heart Attack, 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 Sexually Transmitted Disease: No HIV/AIDS: No Renal Failure Diverticulosis Arthritis Diabetes, Insulin dep Loss of Vision: Denies Sleep Difficulties, Anxiety, Depression Blood Disorders: No Adverse Reaction/Blood Tranf: No (N/A) Family Medical History Alzheimer's disease Cardiovascular disease 19 FATHER 19 MOTHER Diabetes mellitus 19 MOTHER No Pertinent Family Hx Review of Systems Constitutional: weakness EENTM: no symptoms reported Respiratory: no symptoms reported Cardiovascular: no symptoms reported Gastrointestinal: no symptoms reported Genitourinary: no symptoms reported Musculoskeletal: no symptoms reported Skin: no symptoms reported Psychiatric/Neurological: No Symptoms Reported Physical Exam Physical Exam Vital Signs Vital Signs - First Documented 02/07/22 13:00 Temp 36.9 Pulse 73 Resp 16 B/P (MAP) 100/51 (67) Capillary Refill : Less Than 3 Seconds Height, Weight, BMI Height: 0'60.00" Weight: 150lbs. 3.2oz. 68.933132sa; 20.97 BMI Method:Stated General Appearance: No Apparent Distress, Chronically ill HEENT: PERRL/EOMI, Pharynx Normal Neck: Normal Inspection, Supple Respiratory: Lungs Clear, No Respiratory Distress Cardiovascular: No Murmur, Tachycardia (HR 90s) Gastrointestinal: Normal Bowel Sounds, Non Tender, Soft, Other (ostomy in place, normal appearing output) Extremity: Normal Inspection, No Pedal Edema Neurologic/Psychiatric: Alert, Oriented x3, Normal Mood/Affect Skin: Normal Color, Warm/Dry Results Results/Procedures Labs Laboratory Tests 02/07/22 13:20 02/07/22 15:45 Patient resulted labs reviewed. Imaging: Reviewed Imaging Report Assessment/Plan Admission Diagnosis Sepsis due to UTI Admission Status: Inpatient Order (span 2 midnights) Reason for Inpatient Admission: IV antibiotics and fluids Assessment and Plan Sepsis due to UTI SIRS+ with leukocytosis and tachycardia UA concerning for UTI Urine culture pending Blood cultures pending COVID negative Begin Zosyn CT concerning for focal cystitis vs possible infiltrating mass Urology consulted, Dr. Whaley will see patient tomorrow TRIPP on CKD2 Hyponatremia Hyperkalemia BUN significantly elevated Creatinine elevated Potassium elevated Temporizing measures implemented Started on fluids HTN T2DM CAD HFpEF COPD Resume home meds after med rec completed DVT prophylaxis: Lovenox Critical Care Critically Ill Patient Diagnosis/Problems Diagnosis/Problems (1) Sepsis due to urinary tract infection Status: Acute (2) Acute kidney injury superimposed on chronic kidney disease Status: Acute (3) Hyperkalemia Status: Acute (4) Hyponatremia Status: Acute (5) HTN (hypertension) Status: Chronic (6) T2DM (type 2 diabetes mellitus) Status: Chronic (7) COPD (chronic obstructive pulmonary disease) Status: Chronic (8) 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
[2022-02-07] MEDS ORDERED: inSUlin ASPART (NovoLOG) 1 UNIT/0.01 ML (CHARGE PER UNIT) SC SCH (21:00)
[2022-02-07] MEDS: inSUlin ASPART (NovoLOG) 1 UNIT/0.01 ML (CHARGE PER UNIT) SC SCH (21:06)
[2022-02-07] MEDS: PIPERACILLIN SODIUM/TAZOBACTAM 4.5 GM in NS (IVPB) 100 ML IV SCH (23:32)
[2022-02-07] MEDS: ACETAMINOPHEN 325 MG TABLET PO PRN (23:33)
[2022-02-08] MEDS: MELATONIN 3 MG TABLET PO PRN ×2 (01:28→23:23)
[2022-02-08] MEDS: NS IV 1000 ML 1,000 ML IV SCH ×5 (02:25→15:43)
[2022-02-08 04:59] LABS: BASOPHILS # (AUTO) 0.1 10^3/uL (0.0-0.1); BASOPHILS % (AUTO) 0 % (0-10); EOSINOPHILS # (AUTO) 0.4 10^3/uL (0.0-0.3); EOSINOPHILS % (AUTO) 3 % (0-10); HEMATOCRIT 29 % (35-52); HEMOGLOBIN 8.7 g/dL (11.5-16.0); LYMPHOCYTES # (AUTO) 3.6 10^3/uL (1.0-4.0); LYMPHOCYTES % (AUTO) 23 % (12-44); MEAN CORPUSCULAR HEMOGLOBIN 26 pg (25-34); MEAN CORPUSCULAR HGB CONC 30 g/dL (32-36); MEAN CORPUSCULAR VOLUME 87 fL (80-99); MEAN PLATELET VOLUME 9.3 fL (9.0-12.2); MONOCYTES # (AUTO) 1.2 10^3/uL (0.0-1.0); MONOCYTES % (AUTO) 8 % (0-12); NEUTROPHILS # (AUTO) 10.1 10^3/uL (1.8-7.8); NEUTROPHILS % (AUTO) 66 % (42-75); PLATELET COUNT 345 10^3/uL (130-400); WHITE BLOOD COUNT 15.4 10^3/uL (4.3-11.0)
[2022-02-08 05:15] LABS: POTASSIUM 5.1 MMOL/L (3.6-5.0)
[2022-02-08 05:16] LABS: CALCIUM 8.7 MG/DL (8.5-10.1)
[2022-02-08 05:20] LABS: PHOSPHORUS 2.9 MG/DL (2.3-4.7)
[2022-02-08 05:21] LABS: CREATININE SERUM 0.82 MG/DL (0.60-1.30)
[2022-02-08 05:23] LABS: MAGNESIUM 2.3 MG/DL (1.6-2.4)
[2022-02-08] MEDS: MAGNESIUM 1 GM/100 ML IVPB 100 ML IV SCH (05:25)
[2022-02-08] MEDS: inSUlin ASPART (NovoLOG) 1 UNIT/0.01 ML (CHARGE PER UNIT) SC SCH ×4 (05:25→20:00)
[2022-02-08] MEDS: KCL 20 MEQ TAB (K-DUR) PO SCH (05:25)
[2022-02-08] MEDS: POTASSIUM CL 10MEQ/50ML IVPB 50 ML IV SCH (05:25)
[2022-02-08] MEDS: PIPERACILLIN SODIUM/TAZOBACTAM 4.5 GM in NS (IVPB) 100 ML IV SCH ×2 (08:48→15:43)
--- NOTE | 2022-02-08 10:55 | Progress Note - Hospitalist ---
Subjective HPI/CC On Admission Date Seen by Provider: Feb 08, 2022 Time Seen by Provider: 09:20 Sarah Morales is a 81 year old female with PMH HTN, COPD, CAD, T2DM, CKD2, diverticulosis, arthritis, history of colovesicular fistula, chronic respiratory failure, insomnia, anxiety, colostomy, who presented with lethargy. Upon my exam, she had no complaints. She denies fevers. She denies chest pain. She is not short of breath. She denies abdominal pain. She denies nausea and vomiting. She denies any change in her ostomy output. She denies bloody output. She has no urinary symptoms. Subjective/Events-last exam She is feeling a little better. She is having back pain. She is not short of breath. She has no other complaints. Focused Exam Lactate Level 02/07/22 13:20: Lactic Acid Level 1.08 Objective Exam Vital Signs Vital Signs Date Time Temp Pulse Resp B/P (MAP) Pulse Ox O2 Delivery O2 Flow Rate FiO2 02/08/22 08:00 96 Nasal Cannula 2.00 02/08/22 08:00 36.4 02/08/22 06:00 95 13 96/42 Capillary Refill : Less Than 3 Seconds General Appearance: No Apparent Distress, Chronically ill Respiratory: Lungs Clear, No Respiratory Distress Cardiovascular: Regular Rate, Rhythm, No Murmur Gastrointestinal: Normal Bowel Sounds, Soft Extremity: Normal Inspection, No Pedal Edema Neurologic/Psychiatric: Alert, Normal Mood/Affect Skin: Normal Color, Warm/Dry Results/Procedures Lab Laboratory Tests 02/07/22 13:20 02/07/22 15:45 02/08/22 04:28 Patient resulted labs reviewed. Imaging: Reviewed Imaging Report Assessment/Plan Assessment and Plan Assess & Plan/Chief Complaint Sepsis due to UTI Urine culture pending Blood cultures pending Continue Zosyn CT concerning for focal cystitis vs possible infiltrating mass Urology consulted, Dr. Whaley will see patient tomorrow TRIPP on CKD2 Renal function improving Continue fluids HTN T2DM CAD HFpEF COPD Resume home meds after med rec completed DVT prophylaxis: Lovenox Hyponatremia, resolved Hyperkalemia, resolved Critical Care Critically Ill Patient Diagnosis/Problems Diagnosis/Problems (1) Sepsis due to urinary tract infection Status: Acute (2) Acute kidney injury superimposed on chronic kidney disease Status: Acute (3) Hyperkalemia Status: Acute (4) Hyponatremia Status: Acute (5) HTN (hypertension) Status: Chronic (6) T2DM (type 2 diabetes mellitus) Status: Chronic (7) COPD (chronic obstructive pulmonary disease) Status: Chronic (8) 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
--- NOTE | 2022-02-08 10:56 | Tele-ICU Progress Note ---
Subjective Date Seen by a Provider: Feb 08, 2022 Time Seen by a Provider: 10:56 Sepsis Event Evaluation Height, Weight, BMI Height: 0'60.00" Weight: 150lbs. 3.2oz. 68.208863ua; 20.97 BMI Method:Stated Focused Exam Lactate Level 02/07/22 13:20: Lactic Acid Level 1.08 Exam Exam Patient acknowledged, consented, and participated in this virtual visit which was conducted using real time audio/video Vital Signs Date Time Temp Pulse Resp B/P (MAP) Pulse Ox O2 Delivery O2 Flow Rate FiO2 02/08/22 08:00 96 Nasal Cannula 2.00 02/08/22 08:00 36.4 02/08/22 06:00 95 13 96/42 100 Nasal Cannula 2.00 02/08/22 05:00 96 15 116/54 100 Nasal Cannula 2.00 02/08/22 04:00 98 14 72/41 100 Nasal Cannula 2.00 02/08/22 04:00 96 Nasal Cannula 2.00 02/08/22 03:00 102 15 95/46 100 Nasal Cannula 2.00 02/08/22 02:00 70 17 100/45 100 Nasal Cannula 2.00 02/08/22 01:00 74 02/08/22 01:00 74 13 100/43 100 Nasal Cannula 2.00 02/08/22 00:00 98 16 115/45 100 Nasal Cannula 2.00 02/07/22 23:59 98 Nasal Cannula 2.00 02/07/22 23:00 95 13 114/1 100 Nasal Cannula 2.00 02/07/22 22:00 96 13 111/49 100 Nasal Cannula 2.00 02/07/22 21:16 Nasal Cannula 2.00 02/07/22 21:00 96 17 98/48 100 Nasal Cannula 3.00 02/07/22 20:00 68 12 77/38 100 Nasal Cannula 3.00 02/07/22 20:00 98 Nasal Cannula 3.00 02/07/22 19:37 Nasal Cannula 3.00 02/07/22 19:34 35.8 67 14 102/44 98 Nasal Cannula 3.00 02/07/22 19:00 70 02/07/22 19:00 70 22 94/39 100 Nasal Cannula 3.00 02/07/22 18:00 66 11 105/47 100 Nasal Cannula 3.00 02/07/22 17:00 68 8 88/71 100 Nasal Cannula 3.00 02/07/22 16:56 69 02/07/22 16:50 100 Nasal Cannula 3.00 02/07/22 16:38 69 16 106/45 100 Nasal Cannula 3.00 02/07/22 13:00 36.9 73 16 100/51 (67) 100 Nasal Cannula 3.00 02/07/22 13:00 Nasal Cannula 3.00 02/07/22 13:00 100 Nasal Cannula 3.00 I & O 02/08/22 07:00 Intake Total 4000 ml Output Total 1800 ml Balance 2200 ml Height & Weight Height: 0'60.00" Weight: 150lbs. 3.2oz. 68.049008sz; 20.97 BMI Method:Stated General Appearance: No Apparent Distress, Chronically ill HEENT: PERRL/EOMI, Pharynx Normal Neck: Normal Inspection, Supple Respiratory: Lungs Clear, No Respiratory Distress Cardiovascular: Regular Rate, Rhythm, No Murmur Capillary Refill: Less Than 3 Seconds Extremity: Normal Inspection, No Pedal Edema Neurologic/Psychiatric: Alert, Normal Mood/Affect Skin: Normal Color, Warm/Dry Results Lab Laboratory Tests 02/07/22 13:20 02/07/22 15:45 02/08/22 04:28 Assessment/Plan Assessment/Plan (Tele-ICU Physician , Progress Note ) Available chart/ vitals / labs / Images reviewed Video assessment done using teleICU camera, rest of exam as per RN Discussed with RN , EXAM PER RN Events overnight : hypotensive - @L NS boluses Afebrile FiO2 - 2L ( chronic level I/O = + Drips: ns 125 Pressors: , hemodynamically stable Consultants: Hospital course: (02/07) 81F Admitted for sepsis UTI A/P Sepsis due to UTI ( COVID negative - culture pending - responded to hydration - not on pressors - decrease IVF to 100/h -Zosyn CT concerning for focal cystitis vs possible infiltrating mass -Urology consulted TRIPP on CKD - normalized DM II - ISS CAD- h/o HFpEF - follow Hyperkalemia - improved , follow - on ACEI 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 - cont home meds Lines : (Central Line Necessity Reviewed) Guo: + OG: Nutrition: strt PO if can tolerate Analgesia: Anxiety/ delirium VTE Prophylaxis: evan 40 Stress Ulcer Prophylaxis: po Plans in collaboration with bedside consultants and IM MDs. Discussed with RN to reach out if any questions or concerns A total of 32 minutes of critical care time was devoted to this patient today, required to treat and/or prevent further deterioration of critical care condition ( as above) . JOBY BURTON MD Feb 08, 2022 10:56
[2022-02-08] MEDS: ACETAMINOPHEN 325 MG TABLET PO PRN ×2 (12:15→23:24)
[2022-02-08] MEDS ORDERED: ASPI-1238 PO (14:22)
[2022-02-08] MEDS ORDERED: ISOS30TA82 PO (14:22)
[2022-02-08] MEDS ORDERED: KETO15CR2 TP (14:23)
[2022-02-08] MEDS ORDERED: SPIR25TA5 PO (14:23)
[2022-02-08] MEDS ORDERED: LISI5TAB20 PO (14:23)
[2022-02-08] MEDS ORDERED: [UNRECOGNIZED DRUG - CODE] TP (14:23)
[2022-02-08] MEDS ORDERED: [UNRECOGNIZED DRUG - CODE] PO (14:23)
--- NOTE | 2022-02-08 15:16 | Physical Therapy Evaluation ---
PT Evaluation-General Medical Diagnosis Admission Date Feb 07, 2022 at 15:55 Medical Diagnosis: sepsis/UTI Onset Date: Feb 07, 2022 Therapy Diagnosis Therapy Diagnosis: debility/weakness Height/Weight Height (Feet): 0 Height (Inches): 60.00 Weight (Pounds): 150 Weight (Ounces): 3.2 Precautions Precautions/Isolations: Fall Prevention, Standard Precautions Referral Physician: Darleen Reason for Referral: Evaluation/Treatment Medical History Pertinent Medical History: CABG, CAD, COPD (3L), DM, HTN, NM, Renal Insufficiency Current History EMS secondary to decreased BP and HR Reviewed History: Yes Social History Home: Retirement Prior Prior Level of Function SCALE: Activities may be completed with or without assistive devices. 3-Nkuwaoxzed-obvensk completes the activity by him/herself with no assistance from a helper. 5-Set-up or Clean-up Assistance-helper sets up or cleans up; patient completes activity. [place] assists only prior to or following the activity. 4-Supervision or Touching Assistance-helper provides verbal cues and/or touching/steadying and/or contact guard assistance as patient completes activity. Assistance may be provided throughout the activity or intermittently. 3-Partial/Moderate Assistance-helper does LESS THAN HALF the effort. [place] lifts, holds or supports trunk or limbs, but provides less than half the effort. 2-Substantial/Maximal Assistance-helper does MORE THAN HALF the effort. [place] lifts or holds trunk or limbs and provides more than half the effort. 7-Cycchizgo-ovkvaz does ALL the effort. Patient does none of the effort to complete the activity. Or, the assistance of 2 or more helpers is required for the patient to complete the activity. If activity was not attempted, code reason: 7-Patient Refused. 9-Not Applicable-not attempted and the patient did not perform the activity before the current illness, exacerbation or injury. 10-Not Attempted due to Environmental Limitations-(lack of equipment, weather restraints, etc.). 88-Not Attempted due to Medical Conditions or Safety Concerns. Bed Mobility: 3 Transfers (B,C,W/C): 3 Gait: 3 Indoor Mobility (Ambulation): Needed Some Help Stairs: Not Applicalbe Prior Devices Use: Manual wheelchair, Walker PT Evaluation-Current Subjective Patient agrees to PT. She reports she continues to have "spasms" in her abdomen. Objective Patient Orientation: Person, Time, Situation Attachments: Colostomy/Ileostomy, Guo Catheter, IV ROM/Strength ROM Lower Extremities bilateral LE WFL Strength Lower Extremities 3+/5 grossly bilateral LE Integumentary/Posture Integumentary refer to nursing notes Bladder Incontinence: Guo Cath Posture WFL Neuromuscular (Tone, Coordination, Reflexes) grossly intact Sensory Vision: Functional Hearing: Functional Transfers Lying to Sitting/Side of Bed(Q: 3 Sit to Stand (QC): 3 Chair/Uyw-kp-Kfvsu Xfer(QC): 3 Gait Does the Patient Walk?: Yes Mode of Locomotion: Walk Anticipated Mode of Locomotion: Walk Walk 10 feet (QC): 3 Walk 50 ft with 2 Turns(QC): 88 Walk 150 ft (QC): 88 Distance: 30' Gait Assistive Device: FWW Comments/Gait Description shuffle gait sequence Balance Sitting Static: Normal Sitting Dynamic: Normal Standing Static: Fair Standing Dynamic: Fair Assessment/Needs 81 y.o. female, will benefit from skilled PT to address functional strength and mobility to improve current LOF. Patient did limit ambulation distance due to abdominal discomfort. 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 Goals Prison Goals PT Prison Goals Time Frame: Feb 17, 2022 Roll Left & Right (QC): 4 Sit to Lying (QC): 4 Lying-Sitting on Side/Bed(QC): 4 Sit to Stand (QC): 4 Chair/Kym-sa-Mxvfv Xfer(QC): 4 Toilet Transfer (QC): 4 Walk 10 feet (QC): 4 Walk 50ft with 2 Turns (QC): 4 Walk 150 ft (QC): 4 PT Plan Problem List Problem List: Activity Tolerance, Functional Strength, Safety, Balance, Gait, Transfer, Bed Mobility Treatment/Plan Treatment Plan: Continue Plan of Care Treatment Plan: Bed Mobility, Education, Functional Activity Jennifer, Functional Strength, Gait, Safety, Therapeutic Exercise, Transfers Treatment Duration: Feb 17, 2022 Frequency: 6 times per week Estimated Hrs Per Day: .25 hour per day Time/GCodes Time In: 1450 Time Out: 1509 Total Billed Treatment Time: 19 Total Billed Treatment 1 visit EVModC 19 min HAMMAD BROWN PT Feb 08, 2022 15:16
[2022-02-08] MEDS: HYDROcodone/APAP 5 MG/325 MG (LORTAB) TAB PO PRN ×2 (15:42→20:53)
[2022-02-08] MEDS: ENOXAPARIN 40 MG/0.4 ML (LOVENOX) SYR SC SCH (18:19)
--- NOTE | 2022-02-08 19:59 | Progress Note ---
Progress Note Assessment/Plan Date Seen by Provider: Feb 08, 2022 Time Seen by Provider: 19:58 Events since last exam called for occult blood, on Lovenox for DVT prophylaxsis, already on Mylanta, will continue Assessment/Plan will monitor Hb, continue Mylanta Vitals Last set of Vitals Signs Vital Signs Date Time Temp Pulse Resp B/P (MAP) Pulse Ox O2 Delivery O2 Flow Rate FiO2 02/08/22 19:23 36.7 02/08/22 18:00 86 7 150/57 98 Nasal Cannula 2.00 I&O I&O Intake and Output 02/08/22 00:00 Intake Total 2000 ml Output Total 1000 ml Balance 1000 ml Intake Oral 0 ml IV Total 2000 ml Output Urine Total 1000 ml Daily Weight Change Unsure Labs Laboratory Tests 02/07/22 20:07: Glucometer 124H 02/08/22 04:28: White Blood Count 15.4H, Red Blood Count 3.31L, Hemoglobin 8.7L, Hematocrit 29L, Mean Corpuscular Volume 87, Mean Corpuscular Hemoglobin 26, Mean Corpuscular Hemoglobin Concent 30L, Red Cell Distribution Width 14.6H, Platelet Count 345, Mean Platelet Volume 9.3, Immature Granulocyte % (Auto) 1, Neutrophils (%) (Auto) 66, Lymphocytes (%) (Auto) 23, Monocytes (%) (Auto) 8, Eosinophils (%) (Auto) 3, Basophils (%) (Auto) 0, Neutrophils # (Auto) 10.1H, Lymphocytes # (Auto) 3.6, Monocytes # (Auto) 1.2H, Eosinophils # (Auto) 0.4H, Basophils # (Auto) 0.1, Immature Granulocyte # (Auto) 0.1, Sodium Level 135, Potassium Level 5.1H, Chloride Level 105, Carbon Dioxide Level 20L, Anion Gap 10, Blood Urea Nitrogen 52H, Creatinine 0.82, Estimat Glomerular Filtration Rate 73, BUN/Creatinine Ratio 63, Glucose Level 117H, Calcium Level 8.7, Phosphorus Level 2.9, Magnesium Level 2.3 02/08/22 11:07: Glucometer 96 02/08/22 15:16: Glucometer 128H 02/08/22 18:30: Stool Occult Blood Immunoassay POSITIVEH Microbiology 02/07/22 Urine Culture - Final, Complete NO GROWTH 02/07/22 Blood Culture - Preliminary, Resulted No growth Focused Exam Lactate Level 02/07/22 13:20: Lactic Acid Level 1.08 KELLY PATEL MD Feb 08, 2022 19:59
[2022-02-09] MEDS: PIPERACILLIN SODIUM/TAZOBACTAM 4.5 GM in NS (IVPB) 100 ML IV SCH (00:24)
[2022-02-09] MEDS: HYDROcodone/APAP 5 MG/325 MG (LORTAB) TAB PO PRN (02:00)
[2022-02-09] MEDS: NS IV 1000 ML 1,000 ML IV SCH (02:00)
[2022-02-09 05:39] LABS: POTASSIUM 4.8 MMOL/L (3.6-5.0)
[2022-02-09 05:40] LABS: CALCIUM 8.4 MG/DL (8.5-10.1)
[2022-02-09 05:44] LABS: PHOSPHORUS 2.1 MG/DL (2.3-4.7)
[2022-02-09 05:45] LABS: CREATININE SERUM 0.68 MG/DL (0.60-1.30)
[2022-02-09] MEDS: POTASSIUM CL 10MEQ/50ML IVPB 50 ML IV SCH (06:00)
[2022-02-09] MEDS: MAGNESIUM 1 GM/100 ML IVPB 100 ML IV SCH (06:00)
[2022-02-09] MEDS: KCL 20 MEQ TAB (K-DUR) PO SCH (06:00)
[2022-02-09] MEDS: inSUlin ASPART (NovoLOG) 1 UNIT/0.01 ML (CHARGE PER UNIT) SC SCH (06:25)
[2022-02-09 08:35] LABS: BASOPHILS # (AUTO) 0.1 10^3/uL (0.0-0.1); BASOPHILS % (AUTO) 0 % (0-10); EOSINOPHILS # (AUTO) 0.4 10^3/uL (0.0-0.3); EOSINOPHILS % (AUTO) 3 % (0-10); HEMATOCRIT 28 % (35-52); HEMOGLOBIN 8.3 g/dL (11.5-16.0); LYMPHOCYTES # (AUTO) 3.5 10^3/uL (1.0-4.0); LYMPHOCYTES % (AUTO) 21 % (12-44); MEAN CORPUSCULAR HEMOGLOBIN 27 pg (25-34); MEAN CORPUSCULAR HGB CONC 30 g/dL (32-36); MEAN CORPUSCULAR VOLUME 90 fL (80-99); MEAN PLATELET VOLUME 9.6 fL (9.0-12.2); MONOCYTES # (AUTO) 1.1 10^3/uL (0.0-1.0); MONOCYTES % (AUTO) 6 % (0-12); NEUTROPHILS # (AUTO) 11.5 10^3/uL (1.8-7.8); NEUTROPHILS % (AUTO) 69 % (42-75); PLATELET COUNT 341 10^3/uL (130-400); WHITE BLOOD COUNT 16.6 10^3/uL (4.3-11.0)
--- NOTE | 2022-02-09 08:46 | Occupational Therapy Eval ---
OT Evaluation-General/PLF Medical Diagnosis Admission Date Feb 07, 2022 at 15:55 Medical Diagnosis: sepsis/UTI Onset Date: Feb 07, 2022 Therapy Diagnosis Therapy Diagnosis: decreased adl status, weakness Height/Weight Height (Feet): 0 Height (Inches): 60.00 Weight (Pounds): 150 Weight (Ounces): 3.2 Precautions Precautions/Isolations: Fall Prevention, Standard Precautions Referral Physician: Darleen Referral Reason: Evaluation/Treatment Medical History Pertinent Medical History: CABG, CAD, COPD (3L), DM, HTN, [place], Renal Insufficiency Current History Pt arrived to ER from [facility] with low BP and HR. Found to have UTI and septic. Per patient, she receives some assistance with ADLs at [facility]. She is able to complete UE dressing, UE bathing and feeding independently but requires assistance with washing LB, threading LEs into pants (pt able to perform pant hike), and assistance with footwear. She uses a w/c for distance, and walker for transfers.Pt has a ostomy and urostomy bag at baseline, staff cleans and changes. Pt wears 2L oxygen at baseline. Reviewed History: Yes Social History Home: Half-Way ADL-Prior Level of Function SCALE: Activities may be completed with or without assistive devices. 9-Dsopersxly-mtdwnkt completes the activity by him/herself with no assistance from a helper. 5-Set-up or Clean-up Assistance-helper sets up or cleans up; patient completes activity. Gilliam assists only prior to or following the activity. 4-Supervision or Touching Assistance-helper provides verbal cues and/or touching/steadying and/or contact guard assistance as patient completes activity. Assistance may be provided throughout the activity or intermittently. 3-Partial/Moderate Assistance-helper does LESS THAN HALF the effort. Gilliam lifts, holds or supports trunk or limbs, but provides less than half the effort. 2-Substantial/Maximal Assistance-helper does MORE THAN HALF the effort. Gilliam lifts or holds trunk or limbs and provides more than half the effort. 7-Jtrqxwnyf-xzrvcl does ALL the effort. Patient does none of the effort to complete the activity. Or, the assistance of 2 or more helpers is required for the patient to complete the activity. If activity was not attempted, code reason: 7-Patient Refused. 9-Not Applicable-not attempted and the patient did not perform the activity before the current illness, exacerbation or injury. 10-Not Attempted due to Environmental Limitations-(lack of equipment, weather restraints, etc.). 88-Not Attempted due to Medical Conditions or Safety Concerns. Self Care: Needed Some Help Functional Cognition: Needed Some Help DME/Equipment: Shower Drive Self: No OT Current Status Subjective Pt reports feeling slightly lightheaded and nauseous earlier in the morning. Agreeable to eval. Appearance Pt returned to supine in bed, all needs within reach. Mental Status/Objective Patient Orientation: Person, Situation Attachments: Colostomy/Ileostomy, IV, Oxygen, Telemetry Current Glasses/Contacts: Yes Hearing Aids: No Dentures/Partials: No Hand Dominance: Right Upper Extremity ROM L shoulder: ~90 degrees AROM, ~100 degrees PROM R shoulder: ~90 degrees AROM, ~120 degrees PROM Elbow-distally WNL Upper Extremity Strength Bilateral shoulders: 2+/5 Elbow-distally: 3/5 ADL-Treatment Lower Body Dressing (QC): 1 (per clinical judgment) On/Off Footwear (QC): 1 (baseline) Toileting Hygiene (QC): 1 (ostomy and urostomy) Supine>sit: CGA. Good sitting balance at EOB. Pt reports dizziness upon sitting upright, extra time to recover. Sit<>stand: Min-mod a with use of walker, heavy reliance on BUE support. Pt only able to tolerate standing for brief moment before requesting to sit due to increase in dizziness. At this time, pt would require assist with clothing management which she states she can normally perform independently. Min a to return to supine. Assist x2 to supine scoot to [facility]. Education OT Patient Education: Correct positioning, Modified ADL techniques, Purpose of tx/functional activities, Safety issues, Transfer techniques Teaching Recipient: Patient Teaching Methods: Discussion Response to Teaching: Verbalize Understanding, Return Demonstration, Reinforcement Needed OT Software Implementation Project Manager Goals Software Implementation Project Manager Goals Time Frame: Feb 22, 2022 Eating (QC): 5 Shower/Bathe Self (QC): 3 Upper Body Dressing (QC): 4 Lower Body Dressing (QC): 2 (clothing management only) 1=Demonstrate adherence to instructed precautions during ADL tasks. 2=Patient will verbalize/demonstrate understanding of assistive devices/modifications for ADL. 3=Patient will improve strength/tolerance for activity to enable patient to perform ADL's. OT Education/Plan Problem List/Assessment Assessment: Decreased Activ Tolerance, Decreased Safety Aware, Decreased UE Strength, Impaired Bed Mobility, Impaired Funct Balance, Impaired Self-Care Skills, Restricted Funct UE ROM Discharge Recommendations Plan/Recommendations: Continue POC Therapy Discharge Recommendati: Post Acute OT (return to [facility] ) Treatment Plan/Plan of Care Treatment,Training & Education: Yes Patient would benefit from OT for education, treatment and training to promote independence in ADL's, mobility, safety and/or upper extremity function for ADL's. Plan of Care: ADL Retraining, Caregiver Training, Functional Mobility, Group Exercise/Act as Ind, UE Funct Exercise/Act Treatment Duration: Feb 22, 2022 Frequency: 3 times per week (3-5x/week ) Estimated Hrs Per Day: .25 hour per day Agreement: Yes Rehab Potential: Guarded Time/GCodes Start Time: 08:17 Stop Time: 08:29 Total Time Billed (hr/min): 12 Billed Treatment Time 1 visit Natty Tom OT Feb 09, 2022 08:46
[2022-02-09] MEDS ORDERED: FURO40TA4 PO (09:42)
--- NOTE | 2022-02-09 09:52 | Discharge Summary ---
Discharge Summary Reconcile Patient Problems Problems Reviewed?: Yes Hospital Course Hospital Course Date of Admission: Feb 07, 2022 at 15:55 Admission Diagnosis : Sepsis due to UTI Family Physician/Provider: Josh Navarro MD Date of Discharge: 02/09/22 Discharge Diagnosis: Sepsis due to UTI Hospital Course: Sarah Morales is a 81 year old female who was admitted with sepsis due to UTI. She had a CT scan which was concerning for focal cystitis versus infiltrative mass. Urology was consulted and will see her in a couple weeks for cystoscopy. She was given IV antibiotics and fluids. Her TRIPP improved. Her urinalysis had pyruria with few bacteria. Her urine culture was negative. She was still given a course of Omnicef for possible UTI. Her Lasix was decreased. She had issues with hyperkalemia on arrival. Her spironolactone was discontinued. She was discharged back to [facility] in stable condition. Labs and Pending Lab Test: Laboratory Tests 02/08/22 11:07: Glucometer 96 02/08/22 15:16: Glucometer 128H 02/08/22 18:30: Stool Occult Blood Immunoassay POSITIVEH 02/08/22 20:02: Glucometer 116H 02/09/22 04:36: White Blood Count 16.6H, Red Blood Count 3.07L, Hemoglobin 8.3L, Hematocrit 28L, Mean Corpuscular Volume 90, Mean Corpuscular Hemoglobin 27, Mean Corpuscular Hemoglobin Concent 30L, Red Cell Distribution Width 14.7H, Platelet Count 341, Mean Platelet Volume 9.6, Immature Granulocyte % (Auto) 0, Neutrophils (%) (Auto) 69, Lymphocytes (%) (Auto) 21, Monocytes (%) (Auto) 6, Eosinophils (%) (Auto) 3, Basophils (%) (Auto) 0, Neutrophils # (Auto) 11.5H, Lymphocytes # (Auto) 3.5, Monocytes # (Auto) 1.1H, Eosinophils # (Auto) 0.4H, Basophils # (Au to) 0.1, Immature Granulocyte # (Auto) 0.1, Sodium Level 139, Potassium Level 4.8, Chloride Level 110H, Carbon Dioxide Level 18L, Anion Gap 11, Blood Urea Nitrogen 20H, Creatinine 0.68, Estimat Glomerular Filtration Rate 89, BUN/Creatinine Ratio 29, Glucose Level 82, Calcium Level 8.4L, Phosphorus Level 2.1L, Magnesium Level 2.0 02/09/22 06:15: Glucometer 85 Microbiology 02/07/22 MRSA Screen - Final, Complete MRSA not isolated 02/07/22 Urine Culture - Final, Complete NO GROWTH 02/07/22 Blood Culture - Preliminary, Resulted No growth Home Meds Active Furosemide 40 Mg Tablet 20 Mg PO DAILY 30 Days Reported Ketoconazole 15 Gm Cream..g. 1 Applic TP BID PRN APPLY TO BREAST, GROIN AND ABDOMEN Remedy Nutrashield (Dimethicone) 118 Ml Cream.ml. 1 Applic TP BID Pro-Stat Awc Liquid (Amino Acids/Protein Hydrolys) 887 Ml Liquid 30 Ml PO BID Spironolactone 25 Mg Tablet 25 Mg PO DAILY Lisinopril 5 Mg Tablet 5 Mg PO DAILY HOLD AND NOTIFY NURSE/PCP IF BP <80/50 OR >180/110 OR PULSE <50 OR >110 Isosorbide Mononitrate ER (Isosorbide Mononitrate) 30 Mg Tab.er.24h 30 Mg PO DAILY HOLD AND NOTIFY NURSE/PCP IF BP <80/50 OR >180/110 OR PULSE <50 OR >110 Aspirin EC (Aspirin) 81 Mg Tablet.dr 81 Mg PO DAILY Chloraseptic (Phenol) 20 Ml [place] 2 Sprays MM Q4H PRN Co Q-10 (Ubidecarenone) 50 Mg Capsule 50 Mg PO DAILY Ondansetron HCl 4 Mg Tablet 4 Mg PO Q8H PRN Remedy Antifungal (Miconazole Nitrate) 85 Gm Powder 1 Applic TP Q8H PRN USE NEEDED FOR PREVENTION DURING CHANGE IN COLOSTOMY Muscle Rub Ultra Str Cream (Methyl Salicylate/Menth/Camph) 114 Gm Cream..g. 1 Applic TP Q6H PRN APPLY TO LOWER BACK Ketoconazole 15 Gm Cream..g. 1 Applic TOP BID PRN APPLY UNDER BREAST AND GROIN Vitamin C (Ascorbate Calcium) 500 Mg Tablet 500 Mg PO DAILY Acetaminophen 8 Hour (Acetaminophen) 650 Mg Tablet.er 650 Mg PO Q8H PRN Vitamin D3 (Cholecalciferol (Vitamin D3)) 25 Mcg Capsule 50 Mcg PO DAILY Ativan (Lorazepam) 0.5 Mg Tablet 0.5 Mg PO DAILY Oxybutynin Chloride ER (Oxybutynin Chloride) 10 Mg Tab.er.24 10 Mg PO DAILY Niferex Tablet (Iron Ag,Ps/C/Fa6/B12/Zn/SA/Sto) 1 Each Tablet 1 Each PO DAILY Metoprolol Succinate 25 Mg Tab.er.24h 25 Mg PO DAILY HOLD IF SBP <100 OR PULSE <60 Lactobacillus 1 Million Cfu Tb (L. Acidophilus/L.bulgaricus) 1 Each Tablet 1 Each PO 0600,1400 Jardiance (Empagliflozin) 25 Mg Tablet 25 Mg PO DAILY Hydrocodone-Acetamin 5-325 mg (Hydrocodone/Acetaminophen) 1 Each Tablet 1-2 Each PO Q4H PRN Polyethylene Glycol 3350 17 Gm Powd.pack 17 Gm PO Q12H PRN Estrace Cream (Estradiol) 42.5 Gm Cream.appl 1 Gm VG MON,WE,FR @HS Cyclobenzaprine HCl 5 Mg Tablet 10 Mg PO Q8H PRN B-12 (Cyanocobalamin (Vitamin B-12)) 500 Mcg Tablet 500 Mcg PO Q48H Atorvastatin Calcium 20 Mg Tablet 20 Mg PO 1800 Aspercreme 10% Cream (Trolamine Salicylate/Aloe Vera) 35.4 Gm Cream..g. 1 Applic TP Q8H PRN APPLY TO LOWER BACK Proair Hfa (Albuterol Sulfate) 1 Puff Puff 2 Puff IH Q4H PRN Bisacodyl 5 Mg Tablet.dr 10 Mg PO DAILY PRN Zyrtec (Cetirizine HCl) 10 Mg Tablet 5 Mg PO 1800 TAKES 1/2 (10MG) TABLET Biofreeze (Menthol) 118 Ml Gel..ml. 1 Applic TP Q6H PRN APPLY TO LOWER BACK Trazodone HCl 100 Mg Tablet 100 Mg PO 1800 Synthroid (Levothyroxine Sodium) 25 Mcg Tablet 25 Mcg PO DAILY Sertraline HCl 50 Mg Tablet 50 Mg PO 1800 Senna S Tablet (Sennosides/Docusate Sodium) 1 Each Tablet 3 Ea PO 1800 Milk of Magnesia (Magnesium Hydroxide) 400 Mg/5 Ml Oral.susp 30 Ml PO DAILY PRN Magox 400 (Magnesium Oxide) 400 Mg Tablet 400 Mg PO DAILY Gabapentin 100 Mg Capsule 200 Mg PO 1800 TAKES 2 (100MG) CAPSULES Fluticasone Propionate 16 Gm [place].susp 1 [place] NSEACH DAILY Instructions to Patient/Family Assessment/Instructions Take medications as prescribed. Decrease dose of Lasix. Stop taking Spironolactone. Follow up with Drs. Farrell. Return with worsening confusion, shortness of breath, or if you feel like you are getting worse. Follow Up Appt.: two weeks with Dr. Whaley two weeks with Dr. Navarro Skilled NF Admit to: [facility] Certification (SNF) I certify that SNF services are required to be given on an inpatient basis because of the above named patient's need for snf care on a continuing basis for the conditions(s) for which he/she was receiving inpatient hospital services prior to his/her transfer to the SNF. Shelter Facility Order: Nursing Services, Area Relief Pilot-Evaluate & Treat, Physical Therapy-Evaluate & Treat, Wound Care-Eval/Treat Oxygen Delivery Method: Nasal Cannula Oxygen Flow Rate L/min (Range): PRN Discharge Diet: Low Sodium Diet Daily Activity as Tolerated: Yes Resuscitation Status: Do Not Resuscitate Jacqueline Mcdaniel Feb 09, 2022 09:43 Discharge Physical Exam General: Alert, No Acute Distress HEENT: Atraumatic, EOMI Lungs: Clear to Auscultation, Normal Air Movement Heart: Regular Rate, No Murmurs Abdomen: Normal Bowel Sounds, Soft, Other (colostomy in place) Extremities: No Edema, No Tenderness/Swelling Skin: No Rashes, No Significant Lesion Neuro: Normal Speech, Normal Tone Psych/Mental Status: Mental Status NL, Other (depressed mood) JACQUELINE MCDANIEL MD Feb 09, 2022 09:51
--- NOTE | 2022-02-09 11:03 | CONSULTATION REPORT ---
DATE OF SERVICE: 02/09/2022 ATTENDING PHYSICIAN: Dr. Morejon. 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 She has been admitted with urosepsis, put on appropriate antibiotic. She is kind of improving, but still not 100%. CT scan did not reveal any fistula, recurrent, but reveals some thickening of the bladder wall and there was some concern about that. IMPRESSION: Urosepsis, history of vesicocolonic fistula, and cystitis. PLAN: I discussed with the patient the plan of action. We will have her get over this present infection and clear it up and see her back in the office in two weeks and we will do a cystoscopy at that time if her urine is negative. CC: Dr. Sofya Morejon - requested, unable to deliver. CC: Jean Garzon - requested, unable to deliver. Job ID: [id number] DocumentID: [id number] Dictated Date: 02/09/2022 09:36:35 Math Instructor Date: 02/09/2022 11:02:59 Dictated By: PADMINI SAINZ MD
== END 2022-02-09 11:15 | DRG 872 ==
LOC: EDUNIT# 12:55 → ER 12:56 → ICU 15:55 → UNDOADMIN 16:22
PROVIDERS: ADMIT Internal Medicine; ATTEND Internal Medicine
DX: A41.9 Sepsis, unspecified organism (principal); N39.0 Urinary tract infection, site not specified; N17.9 Acute kidney failure, unspecified; I13.0 Hypertensive heart and chronic kidney disease with heart failure and stage 1 through stage 4 chronic kidney disease, or unspecified chronic kidney disease; E87.1 Hypo-osmolality and hyponatremia; I50.42 Chronic combined systolic (congestive) and diastolic (congestive) heart failure; J44.9 Chronic obstructive pulmonary disease, unspecified; I25.10 Atherosclerotic heart disease of native coronary artery without angina pectoris; I25.2 Old myocardial infarction; K57.90 Diverticulosis of intestine, part unspecified, without perforation or abscess without bleeding; Z99.81 Dependence on supplemental oxygen; Z20.822 Contact with and (suspected) exposure to COVID-19; G47.00 Insomnia, unspecified; F41.9 Anxiety disorder, unspecified; Z93.3 Colostomy status; M19.90 Unspecified osteoarthritis, unspecified site; Z79.82 Long term (current) use of aspirin; Z79.899 Other long term (current) drug therapy; Z95.1 Presence of aortocoronary bypass graft; F32.A Depression, unspecified; N18.9 Chronic kidney disease, unspecified; E11.22 Type 2 diabetes mellitus with diabetic chronic kidney disease; E87.5 Hyperkalemia
CPT/HCPCS: 36415; 51702; 71045; 74176; 80048; 80053; 81000; 82010; 82274; 82800; 82947; 83605; 83735; 84100; 84145; 85007; 85025; 85027; 85610; 85730; 87040; 87081; 87088; 87636; 93005; 99291

== ENCOUNTER → 2022-03-23 | Outpatient (CLI) | payer MEDICARE, MEDICAID ==
[~2022-03-23] MED LIST changes: +KETO15CR2 TP; +SPIR25TA5 PO; +[UNRECOGNIZED DRUG - CODE] PO
== END ==
LOC: ONC 13:10
PROVIDERS: ATTEND Internal Medicine Hematology & Oncology
DX: D50.9 Iron deficiency anemia, unspecified (principal); D72.829 Elevated white blood cell count, unspecified

== ENCOUNTER 2022-05-08 00:34 | Inpatient (IN) | payer MEDICARE, MEDICAID ==
[~2022-05-08] VITALS: Ht 165 cm; Wt 53.3 kg
[~2022-05-08 00:34] MED LIST changes: +ACET-2717 PO; -ACET650T41 PO
[2022-05-08 00:59] LABS: BASOPHILS # (AUTO) 0.1 10^3/uL (0.0-0.1); BASOPHILS % (AUTO) 0 % (0-10); EOSINOPHILS # (AUTO) 0.4 10^3/uL (0.0-0.3); EOSINOPHILS % (AUTO) 3 % (0-10); HEMATOCRIT 32 % (35-52); HEMOGLOBIN 9.8 g/dL (11.5-16.0); LYMPHOCYTES # (AUTO) 5.1 10^3/uL (1.0-4.0); LYMPHOCYTES % (AUTO) 38 % (12-44); MEAN CORPUSCULAR HEMOGLOBIN 27 pg (25-34); MEAN CORPUSCULAR HGB CONC 30 g/dL (32-36); MEAN CORPUSCULAR VOLUME 90 fL (80-99); MEAN PLATELET VOLUME 9.3 fL (9.0-12.2); MONOCYTES # (AUTO) 1.3 10^3/uL (0.0-1.0); MONOCYTES % (AUTO) 10 % (0-12); NEUTROPHILS # (AUTO) 6.5 10^3/uL (1.8-7.8); NEUTROPHILS % (AUTO) 49 % (42-75); PLATELET COUNT 402 10^3/uL (130-400); WHITE BLOOD COUNT 13.5 10^3/uL (4.3-11.0)
[2022-05-08] MEDS ORDERED: PIPERACILLIN SODIUM/TAZOBACTAM 4.5 GM in NS (IVPB) 100 ML IV ONE (01:00)
[2022-05-08 01:02] LABS: ALBUMIN 3.5 GM/DL (3.2-4.5); CHLORIDE 97 MMOL/L (98-107); POTASSIUM 4.6 MMOL/L (3.6-5.0); SODIUM 137 MMOL/L (135-145)
[2022-05-08 01:03] LABS: CALCIUM 9.6 MG/DL (8.5-10.1)
[2022-05-08 01:04] LABS: GLUCOSE 191 MG/DL (70-105); TOTAL PROTEIN 7.6 GM/DL (6.4-8.2)
[2022-05-08 01:05] LABS: CARBON DIOXIDE 27 MMOL/L (21-32); PROTHROMBIN TIME PATIENT 13.6 SEC (12.2-14.7)
[2022-05-08 01:06] LABS: BILIRUBIN,TOTAL 0.2 MG/DL (0.1-1.0)
[2022-05-08 01:08] LABS: ALKALINE PHOSPHATASE 56 U/L (40-136); GFR ESTIMATED 51
--- NOTE | 2022-05-08 01:08 | ED General ---
General Stated Complaint: HYPOTENSION Source of Information: Patient Exam Limitations: No Limitations History of Present Illness Date Seen by Provider: May 08, 2022 Time Seen by Provider: 00:38 Initial Comments 82yoF with PMH of COPD, CAD, HTN, CKD, OA, Colovesical fistula, colostomy, anxiety coming in via EMS from her long-term in [place] due to AMS and low blood pressure. They noticed she was not acting right for the past couple of hours. Normally she talks quietly, but has not been talking. Last time this happened she had a bad UTI per EMS. I called the patient's sister who is her DPOA, Kristy Rushing, at [phone]. The patient is DNR/DNI, but would want antibiotics or other reasonable treatment if it would help. EMS started an IV and gave IV fluids. Initial pressure in the 70's and later came up to the 100's. She was not complaining of pain earlier today. She is wheelchair bound at baseline and on 2-3L O2 at all times. Allergies and Home Medications Allergies Coded Allergies: Fish Containing Products (Unverified Allergy, Unknown, 03/07/21) iodine (Unverified Allergy, Unknown, 03/07/21) peanut (Unverified Allergy, Unknown, 03/07/21) shrimp (Verified Allergy, Unknown, 04/30/19) Uncoded Allergies: POPCORN (Allergy, Unknown, 03/07/21) Patient Home Medication List Home Medication List Reviewed: Yes Acetaminophen (Acetaminophen 8 Hour) 650 Mg Tablet.er, 650 MG PO Q8H PRN for PAIN-BREAKTHROUGH, (Reported) Entered as Reported by: PEYTON DESIR on 05/19/21 1149 Albuterol Sulfate (Proair Hfa) 1 Puff Puff, 2 PUFF IH Q4H PRN for SHORTNESS OF BREATH, (Reported) Entered as Reported by: BRITTANEY HEBERT on 05/04/21 1436 Amino Acids/Protein Hydrolys (Pro-Stat Awc Liquid) 887 Ml Liquid, 30 ML PO BID, (Reported) Entered as Reported by: PEYTON DESIR on 02/08/22 1423 Ascorbate Calcium (Vitamin C) 500 Mg Tablet, 500 MG PO DAILY, (Reported) Entered as Reported by: PEYTON DESIR on 05/19/21 1149 Aspirin (Aspirin EC) 81 Mg Tablet.dr, 81 MG PO DAILY, (Reported) Entered as Reported by: PEYTON DESIR on 02/08/22 1422 Atorvastatin Calcium (Atorvastatin Calcium) 20 Mg Tablet, 20 MG PO 1800, (Reported) Entered as Reported by: BRITTANEY HEBERT on 05/04/21 1436 Bisacodyl (Bisacodyl) 5 Mg Tablet.dr, 10 MG PO DAILY PRN for CONSTIPATION-4TH LINE, (Reported) Entered as Reported by: KIM AVILA on 07/29/19 1514 Cetirizine HCl (Zyrtec) 10 Mg Tablet, 5 MG PO 1800, (Reported) Entered as Reported by: SLIME AREVALO on 06/05/19 0917 Cholecalciferol (Vitamin D3) (Vitamin D3) 25 Mcg Capsule, 50 MCG PO DAILY, (Reported) Entered as Reported by: PEYTON DESIR on 05/19/21 1149 Cyanocobalamin (Vitamin B-12) (B-12) 500 Mcg Tablet, 500 MCG PO Q48H, (Reported) Entered as Reported by: BRITTANEY HEBERT on 05/04/21 1436 Cyclobenzaprine HCl (Cyclobenzaprine HCl) 5 Mg Tablet, 10 MG PO Q8H PRN for MUSCLE SPASMS, (Reported) Entered as Reported by: BRITTANEY HEBERT on 05/04/21 1436 Dimethicone (Remedy Nutrashield) 118 Ml Cream.ml., 1 APPLIC TP BID, (Reported) Entered as Reported by: PEYTON DESIR on 02/08/22 1423 Empagliflozin (Jardiance) 25 Mg Tablet, 25 MG PO DAILY, (Reported) Entered as Reported by: BRITTANEY HEBERT on 05/04/21 1436 Estradiol (Estrace Cream) 42.5 Gm Cream.appl, 1 GM VG MON,WE,FR @HS, (Reported) Entered as Reported by: BRITTANEY HEBERT on 05/04/21 1436 Fluticasone Propionate (Fluticasone Propionate) 16 Gm [place].susp, 1 SPRAY NSEACH DAILY, (Reported) Entered as Reported by: SLIME AREVALO on 05/01/19 0831 Furosemide (Furosemide) 40 Mg Tablet, 20 MG PO DAILY Prescribed by: JACQUELINE MCDANIEL on 02/09/22 0942 Gabapentin (Gabapentin) 100 Mg Capsule, 200 MG PO 1800, (Reported) Entered as Reported by: SLIME AREVALO on 05/01/19 0831 Hydrocodone/Acetaminophen (Hydrocodone-Acetamin 5-325 mg) 1 Each Tablet, 1-2 EACH PO Q4H PRN for PAIN-MODERATE (5-7), (Reported) Entered as Reported by: BRITTANEY HEBERT on 05/04/21 1436 Iron Ag,Ps/C/Fa6/B12/Zn/SA/Sto (Niferex Tablet) 1 Each Tablet, 1 EACH PO DAILY, (Reported) Entered as Reported by: BRITTANEY HEBERT on 05/04/21 1436 Isosorbide Mononitrate (Isosorbide Mononitrate ER) 30 Mg Tab.er.24h, 30 MG PO DAILY, (Reported) Entered as Reported by: PEYTON DESIR on 02/08/22 1422 Ketoconazole (Ketoconazole) 15 Gm Cream..g., 1 APPLIC TOP BID PRN for REDNESS, (Reported) Entered as Reported by: PEYTON DESIR on 05/19/21 1149 Ketoconazole (Ketoconazole) 15 Gm Cream..g., 1 APPLIC TP BID PRN for REDNESS, (Reported) Entered as Reported by: PEYTON DESIR on 02/08/22 1423 L. Acidophilus/L.bulgaricus (Lactobacillus 1 Million Cfu Tb) 1 Each Tablet, 1 EACH PO 0600,1400, (Reported) Entered as Reported by: BRITTANEY HEBERT on 05/04/21 1436 Levothyroxine Sodium (Synthroid) 25 Mcg Tablet, 25 MCG PO DAILY, (Reported) Entered as Reported by: SLIME AREVALO on 05/01/19 0831 Lisinopril (Lisinopril) 5 Mg Tablet, 5 MG PO DAILY, (Reported) Entered as Reported by: PEYTON DESIR on 02/08/22 1423 Lorazepam (Ativan) 0.5 Mg Tablet, 0.5 MG PO DAILY, (Reported) Entered as Reported by: PEYTON DESIR on 05/19/21 1149 Magnesium Hydroxide (Milk of Magnesia) 400 Mg/5 Ml Oral.susp, 30 ML PO DAILY PRN for CONSTIPATION-7TH LINE, (Reported) Entered as Reported by: SLIME AREVALO on 05/01/19830 Magnesium Oxide (Magox 400) 400 Mg Tablet, 400 MG PO DAILY, (Reported) Entered as Reported by: SLIME AREVALO on 05/01/19830 Menthol (Biofreeze) 118 Ml Gel..ml., 1 APPLIC TP Q6H PRN for SPASMS, (Reported) Entered as Reported by: SLIME AREVALO on 06/05/19 09 Methyl Salicylate/Menth/Camph (Muscle Rub Ultra Str Cream) 114 Gm Cream..g., 1 APPLIC TP Q6H PRN for PAIN-BREAKTHROUGH, (Reported) Entered as Reported by: PEYTON DESIR on 05/19/21 114 Metoprolol Succinate (Metoprolol Succinate) 25 Mg Tab.er.24h, 25 MG PO DAILY, (Reported) Entered as Reported by: BRITTANEY HEBERT on 05/04/21 143 Miconazole Nitrate (Remedy Antifungal) 85 Gm Powder, 1 APPLIC TP Q8H PRN for PREVENTION, (Reported) Entered as Reported by: PEYTON DESIR on 05/19/21 1149 Ondansetron HCl (Ondansetron HCl) 4 Mg Tablet, 4 MG PO Q8H PRN for NAUSEA/VOMITING-1ST LINE, (Reported) Entered as Reported by: PEYTON DESIR on 01/03/22 1420 Oxybutynin Chloride (Oxybutynin Chloride ER) 10 Mg Tab.er.24, 10 MG PO DAILY, (Reported) Entered as Reported by: BRITTANEY HEBERT on 05/04/21 1436 Phenol (Chloraseptic) 20 Ml [place], 2 SPRAYS MM Q4H PRN for PAIN-BREAKTHROUGH, (Reported) Entered as Reported by: PEYTON DESIR on 01/03/22 1420 Polyethylene Glycol 3350 (Polyethylene Glycol 3350) 17 Gm Powd.pack, 17 GM PO Q12H PRN for CONSTIPATION-2ND LINE, (Reported) Entered as Reported by: BRITTANEY HEBERT on 05/04/21 1436 Sennosides/Docusate Sodium (Senna S Tablet) 1 Each Tablet, 3 EA PO 1800, (Repo rted) Entered as Reported by: SLIME AREVALO on 05/01/19830 Sertraline HCl (Sertraline HCl) 50 Mg Tablet, 50 MG PO 1800, (Reported) Entered as Reported by: SLIME AREVALO on 05/01/19 08 Trazodone HCl (Trazodone HCl) 100 Mg Tablet, 100 MG PO 1800, (Reported) Entered as Reported by: SLIME AREVALO on 05/01/19830 Trolamine Salicylate/Aloe Vera (Aspercreme 10% Cream) 35.4 Gm Cream..g., 1 APPLIC TP Q8H PRN for PAIN-BREAKTHROUGH, (Reported) Entered as Reported by: BRITTANEY HEBERT on 05/04/21 1436 Ubidecarenone (Co Q-10) 50 Mg Capsule, 50 MG PO DAILY, (Reported) Entered as Reported by: PEYTON DESIR on 01/03/22 1420 Review of Systems Review of Systems Constitutional: No fever EENTM: no symptoms reported Respiratory: no symptoms reported Cardiovascular: no symptoms reported Gastrointestinal: no symptoms reported Genitourinary: no symptoms reported Musculoskeletal: no symptoms reported Skin: no symptoms reported Psychiatric/Neurological: Other (confused) Hematologic/Lymphatic: No Symptoms Reported Immunological/Allergic: no symptoms reported All Other Systems Reviewed Negative Unless Noted: Yes Past Jqcpzxd-Uffawd-Cahzui Hx Patient Social History Tobacco Use?: No Seasonal Allergies Seasonal Allergies: No Past Medical History Surgeries: Yes (BYPASS GRAFT, FOOT MANIPULATION, FLEXIBLE DIAG CYSTOSCOPY, colostomy) Bowel Surgery, CABG, Hysterectomy Respiratory: Yes (COPD) COPD Currently Using CPAP: No Currently Using BIPAP: No Cardiac: Yes Coronary Artery Disease, Heart Attack, 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 Neurological: No 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 Disorders: 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 Sexually Transmitted Disease: No HIV/AIDS: No Genitourinary: Yes Renal Failure Gastrointestinal: Yes (colon mass, COLOSTOMY) Diverticulosis Musculoskeletal: Yes Arthritis Endocrine: Yes Diabetes, Insulin dep HEENT: Yes (WEARS GLASSES) Loss of Vision: Denies Cancer: No Psychosocial: Yes Sleep Difficulties, Anxiety, Depression Integumentary: No Blood Disorders: No Adverse Reaction/Blood Tranf: No (N/A) Family Medical History Alzheimer's disease Cardiovascular disease 19 FATHER 19 MOTHER Diabetes mellitus 19 MOTHER No Pertinent Family Hx Physical Exam-Suspected Sepsis Physical Exam Vital Signs Vital Signs - First Documented 05/08/22 00:40 Temp 36.7 Pulse 73 Resp 18 B/P (MAP) 105/45 (65) Pulse Ox 100 O2 Delivery Nasal Cannula O2 Flow Rate 2.00 FiO2 100 Capillary Refill : Height, Weight, BMI Height: 0'60.00" Weight: 150lbs. 3.2oz. 68.503458pv; 20.97 BMI Method:Stated General Appearance: No Apparent Distress, Other (eyes closed, opens eyes briefly to voice) Eyes: Bilateral Eye Normal Inspection HEENT: PERRL/EOMI, TMs Normal, Normal ENT Inspection, Pharynx Normal Neck: Full Range of Motion, Normal Inspection, Non Tender, Supple Respiratory: Chest Non Tender, No Accessory Muscle Use, No Respiratory Distress, Crackles Cardiovascular: Regular Rate, Rhythm, No Edema, Normal Peripheral Pulses Gastrointestinal: Normal Bowel Sounds, Non Tender, Soft; No Distended, No Guarding, No Hepatomegaly; Other (Colostomy draining liquid green/brown stool, what I assume is the potentially vesicular cutaneous fistula draining what appears to be janell purulent drainage.) Back: Normal Inspection, No CVA Tenderness Extremity: Normal Capillary Refill, Normal Inspection, Normal Range of Motion, Non Tender, No Calf Tenderness, No Pedal Edema Neurologic/Psychiatric: Other (eyes closed, opens to voice, not speaking, moving all extremities to pain) Skin: normal color, warm/dry Lymphatic: No Adenopathy Focused Exam Sepsis Stage: Severe Sepsis Possible Source: Genitouriary Lactate Level 05/08/22 01:07: Lactic Acid Level 0.29L Time of Focused Exam: 01:15 Respiratory: Chest Non Tender, No Accessory Muscle Use, No Respiratory Distress, Crackles Cardiovascular: Regular Rate, Rhythm, No Edema, Normal Peripheral Pulses Capillary Refill: Less Than 3 Seconds Peripheral Pulses: 2+ Radial Pulses (R), 2+ Radial Pulses (L) Skin: normal color, warm/dry Lactic Acid Level Within 3hrs of presentation: Admin fluids, Admin ABX, Blood cultures prior to ABX's, Focus exam, Lactate level Progress/Results/Core Measures Suspected Sepsis SIRS Temperature: Pulse: Respiratory Rate: Laboratory Tests 05/08/22 00:40: White Blood Count 13.5H Blood Pressure / Mean: 05/08/22 01:07: Lactic Acid Level 0.29L Laboratory Tests 05/08/22 00:40: Creatinine 1.10, INR Comment 1.0, Platelet Count 402H, Total Bilirubin 0.2 Results/Orders Lab Results Laboratory Tests Test 05/08/22 00:40 05/08/22 01:07 05/08/22 02:16 Range/Units White Blood Count 13.5 H 4.3-11.0 10^3/uL Red Blood Count 3.58 L 3.80-5.11 10^6/uL Hemoglobin 9.8 L 11.5-16.0 g/dL Hematocrit 32 L 35-52 % Mean Corpuscular Volume 90 80-99 fL Mean Corpuscular Hemoglobin 27 25-34 pg Mean Corpuscular Hemoglobin Concent 30 L 32-36 g/dL Red Cell Distribution Width 14.5 10.0-14.5 % Platelet Count 402 H 130-400 10^3/uL Mean Platelet Volume 9.3 9.0-12.2 fL Immature Granulocyte % (Auto) 1 % Neutrophils (%) (Auto) 49 42-75 % Lymphocytes (%) (Auto) 38 12-44 % Monocytes (%) (Auto) 10 0-12 % Eosinophils (%) (Auto) 3 0-10 % Basophils (%) (Auto) 0 0-10 % Neutrophils # (Auto) 6.5 1.8-7.8 10^3/uL Lymphocytes # (Auto) 5.1 H 1.0-4.0 10^3/uL Monocytes # (Auto) 1.3 H 0.0-1.0 10^3/uL Eosinophils # (Auto) 0.4 H 0.0-0.3 10^3/uL Basophils # (Auto) 0.1 0.0-0.1 10^3/uL Immature Granulocyte # (Auto) 0.1 0.0-0.1 10^3/uL Prothrombin Time 13.6 12.2-14.7 SEC INR Comment 1.0 0.8-1.4 Activated Partial Thromboplast Time 33 24-35 SEC Sodium Level 137 135-145 MMOL/L Potassium Level 4.6 3.6-5.0 MMOL/L Chloride Level 97 L 98-107 MMOL/L Carbon Dioxide Level 27 21-32 MMOL/L Anion Gap 13 5-14 MMOL/L Blood Urea Nitrogen 61 H 7-18 MG/DL Creatinine 1.10 0.60-1.30 MG/DL Estimat Glomerular Filtration Rate 51 BUN/Creatinine Ratio 55 Glucose Level 191 H 70-105 MG/DL Calcium Level 9.6 8.5-10.1 MG/DL Corrected Calcium 10.0 8.5-10.1 MG/DL Total Bilirubin 0.2 0.1-1.0 MG/DL Aspartate Amino Transf (AST/SGOT) 11 5-34 U/L Alanine Aminotransferase (ALT/SGPT) 8 0-55 U/L Alkaline Phosphatase 56 40-136 U/L Troponin I < 0.028 <0.028 NG/ML Total Protein 7.6 6.4-8.2 GM/DL Albumin 3.5 3.2-4.5 GM/DL Urine Color WHITE Urine Clarity TURBID Urine pH 6.5 5-9 Urine Specific [place] 1.010 L 1.016-1.022 Urine Protein 4+ NEGATIVE Urine Glucose (UA) 2+ H NEGATIVE Urine Ketones TRACE H NEGATIVE Urine Nitrite NEGATIVE NEGATIVE Urine Bilirubin NEGATIVE NEGATIVE Urine Urobilinogen NORMAL < = 1.0 MG/DL Urine Leukocyte Esterase 3+ H NEGATIVE Urine RBC (Auto) 4+ H NEGATIVE Urine RBC TNTC H /HPF Urine WBC TNTC H /HPF Urine Crystals NONE /LPF Urine Bacteria LARGE H /HPF Urine Casts NONE /LPF Urine Mucus LARGE H /LPF Urine Culture Indicated CULTURE PENDING Lactic Acid Level 0.29 L 0.50-2.00 MMOL/L Influenza Type A (RT-PCR) Not Detected Not Detecte Influenza Type B (RT-PCR) Not Detected Not Detecte SARS-CoV-2 RNA (RT-PCR) Not Detected Not Detecte My Orders Orders - PATTI CELESTE MD Cbc With Automated Diff (05/08/22 00:49) Comprehensive Metabolic Panel (05/08/22 00:49) Blood Culture (05/08/22:49) Sputum Culture (05/08/22:49) Urinalysis (05/08/22:49) Urine Culture (05/08/22 00:49) Protime With Inr (05/08/22:49) Partial Thromboplastin Time (05/08/22:49) Chest 1 View, Ap/Pa Only (05/08/22 00:49) Ed Iv/Invasive Line Start (05/08/22 00:49) Ed Iv/Invasive Line Start (05/08/22 00:49) Ekg Tracing (05/08/22 00:49) Troponin I [place] (05/08/22 00:49) O2 (05/08/22 00:49) Remove Rings In Anticipation O (05/08/22 00:49) Lactic Acid Analyzer (05/08/22 00:49) Influenza A And B By Pcr (05/08/22 00:49) Piperacillin Sodium/Tazobactam (Zosyn Vi (05/08/22 01:00) Ct Head Wo (05/08/22 00:49) Covid 19 Inhouse Test (05/08/22 00:49) Catheter(Urinary) Insert & Ass 03,15 (05/08/22 00:49) Medications Given in ED Current Medications Medications Dose Ordered Sig/Geeta Route Start Time Stop Time Status Last Admin Dose Admin Piperacillin Sod/ Tazobactam Sod 4.5 gm/Sodium Chloride 100 ml @ 200 mls/hr ONCE ONCE IV 05/08/22 01:00 05/08/22 01:29 DC 05/08/22 01:09 200 MLS/HR Vital Signs/I&O 05/08/22 05/08/22 05/08/22 05/08/22 00:40 00:40 02:41 03:07 Temp 36.7 36.7 Pulse 73 66 70 Resp 18 18 14 B/P (MAP) 105/45 (65) 117/48 135/55 Pulse Ox 100 100 100 98 O2 Delivery Nasal Cannula Nasal Cannula Nasal Cannula Nasal Cannula O2 Flow Rate 2.00 2.00 2.00 2.00 FiO2 100 05/08/22 05/08/22 05/08/22 03:20 03:58 04:14 Temp 36.0 36.7 Pulse 67 73 Resp 16 B/P (MAP) 143/59 (87) Pulse Ox 99 100 O2 Delivery Nasal Cannula O2 Flow Rate 3.00 3.00 FiO2 28 Capillary Refill : Progress Note : Progress Note 82-year-old female with above history coming in minimally responsive and initially hypotensive now normotensive. Patient would not respond but would move extremities to pain on arrival. She was confirmed DNR/DNI. An IV was placed and she was given 1 L of IV fluids via EMS, Zosyn for suspected sepsis, and basic labs including blood cultures and lactic ordered. On reassessment, eyes were open spontaneously, answering some questions but certainly confused. Urine concerning for pyuria with too numerous to count whites. We will transition to ceftriaxone when she is admitted. I discussed the case with Dr. Joshi who will admit her as an inpatient for further evaluation and management to the hospitalist service. CT head and chest x-ray ordered and interpreted by me showing no significant abnormality. Of note, the patient does have significant heart failure with reduced ejection fraction. Her blood pressure improved after 1 L of IV fluids. I believe it would be detrimental to her care if she were to get a significant more amount of fluids via bolus. We will forego the typical 30 cc/kg bolus because of her comorbidities. Specifically, she is DNR, and if we put her in respiratory compromise, she could given she does not want to be intubated. ECG Initial ECG Impression Date: May 08, 2022 Initial ECG Impression Time: 02:12 Initial ECG Rate: 65 Initial ECG Rhythm: Normal Sinus Comment Narrow QRS, normal axis, no significant ST changes or T wave abnormality Departure Impression Primary Impression: Severe sepsis Additional Impressions: UTI (urinary tract infection) Qualified Codes: N30.01 - Acute cystitis with hematuria Transient hypotension Disposition: ADMITTED INPATIENT Condition: Stable Admissions Decision to Admit Reason: Admit from ER (General) Decision to Admit/Date: May 08, 2022 Time/Decision to Admit Time: 02:20 Departure-Patient Inst. Referrals: MACEY CAO MD (PCP/Family) Primary Care Physician PATTI CELESTE MD May 08, 2022 01:08
[2022-05-08 01:09] LABS: BUN/CREATININE RATIO 55
[2022-05-08 01:11] LABS: ALANINE AMINOTRANSFERASE 8 U/L (0-55)
[2022-05-08 02:14] LABS: CLARITY,URINE TURBID; PH,URINE 6.5 (5-9); PROTEIN,URINE 4+ (NEGATIVE)
[2022-05-08 02:15] LABS: BILIRUBIN,URINE NEGATIVE (NEGATIVE); GLUCOSE, URINE (UA) 2+ (NEGATIVE); KETONES,URINE TRACE (NEGATIVE); NITRITE,URINE NEGATIVE (NEGATIVE)
[2022-05-08 02:16] LABS: BACTERIA,URINE LARGE /HPF; LEUKOCYTE ESTERASE ,URINE 3+ (NEGATIVE); RBC,URINE TNTC /HPF; WBC,URINE TNTC /HPF
[2022-05-08 03:20] VITALS: BP 143/59
[2022-05-08] MEDS ORDERED: NS IV 1000 ML 1,000 ML IV SCH (03:45)
[2022-05-08 03:58] VITALS: BP 105/45
[2022-05-08] MEDS: cefTRIAXone 1 GM IV (PRE-MIX) 50 ML IV SCH (04:01)
[2022-05-08] MEDS ORDERED: RT-ALBUTEROL SULF 2.5 MG/3 ML PRE-MIX VIAL INH PRN (04:15)
[2022-05-08] MEDS: LEVOTHYROXINE 25 MCG (LEVOTHROID) TAB PO SCH (06:10)
[2022-05-08] MEDS: inSUlin ASPART (NovoLOG) 1 UNIT/0.01 ML (CHARGE PER UNIT) SC SCH ×4 (06:14→21:15)
--- NOTE | 2022-05-08 06:23 | Diagnostic Imaging Report ---
EXAMINATION: CT head without contrast. TECHNIQUE: Multiple contiguous axial images were obtained through the brain without the use of intravenous contrast. All CT scans use one or more of the following dose optimizing techniques: automated exposure control, MA and/or KvP adjustment based on patient size and exam type or iterative reconstruction. HISTORY: Altered mental status. COMPARISON: None available. FINDINGS: No large acute territorial ischemia, mass, or hemorrhage. No midline shift or mass effect. Decreased attenuation is seen in the periventricular and subcortical white matter. The ventricles and cortical sulci are prominent. The basilar cisterns are patent and unremarkable. The orbits are normal. Retained secretions are seen in the left maxillary sinus. Mastoid air cells are clear. No soft tissue abnormality is seen. No osseus lesions or fractures are seen. IMPRESSION: 1. No large acute territorial ischemia, mass, or hemorrhage. 2. Chronic microvascular disease. 3. Generalized parenchymal volume loss. Agree with overnight report. Dictated by: Dictated on workstation # [id number]
--- NOTE | 2022-05-08 06:57 | Diagnostic Imaging Report ---
INDICATION: Altered mental status. COMPARISON: 02/07/2022 FINDINGS: Single frontal radiographic view of the chest was obtained and demonstrates asymmetric elevation left hemidiaphragm with consolidation in left base partially obscuring left hemidiaphragm. This is new compared to prior exam. Right lung is relatively clear. There is no large effusion on the right. No pneumothorax is seen on either side. Cardiac silhouette and pulmonary vasculature are within normal limits. Sternotomy wires are noted. Osseous structures show no gross acute abnormalities. IMPRESSION:. Asymmetric elevation left hemidiaphragm with probable left basilar infiltrate and/or atelectasis. Small effusion cannot be excluded. Dictated by: Dictated on workstation # [id number]
[2022-05-08 08:05] VITALS: BP 146/68
[2022-05-08] MEDS: RT-ALBUTEROL SULF 2.5 MG/3 ML PRE-MIX VIAL INH SCH ×3 (10:31→20:41)
[2022-05-08] MEDS: ACETAMINOPHEN 500 MG TAB (TYLENOL) PO PRN (11:11)
[2022-05-08 12:05] VITALS: BP 146/73
--- NOTE | 2022-05-08 12:25 | History & Physical-Hospitalist ---
History of Present Illness HPI/Chief Complaint Patient is an 82-year-old female who presented to the ER due to altered mental status and hypotension. She resides at [facility] and rehab and is normally able to communicate but speaks very quietly. Yesterday she was altered overnight and was found to be hypotensive and sent to the emergency department. She has had previous episodes similar to this with urinary tract infections. UA revealed a urinary tract infection and she was admitted for IV antibiotics and further management. This morning she is unable to provide any history. She states she does not feel well. She cannot elaborate further in any way. Source: patient Date Seen 05/08/22 Time Seen by a Provider: 11:30 Attending Physician Macey Cao MD PCP Admitting Physician: Delta Joshi MD Attending Physician: Delta Joshi MD Referring Physician Date of Admission May 08, 2022 at 02:27 Home Medications & Allergies Home Medications Reviewed patient Home Medication Reconciliation performed by pharmacy medication reconciliations lead based paint technician and/or nursing. Patients Allergies have been reviewed. Allergies Allergies Coded Allergies Fish Containing Products (Unverified Allergy, Unknown, 03/07/21) iodine (Unverified Allergy, Unknown, 03/07/21) peanut (Unverified Allergy, Unknown, 03/07/21) shrimp (Verified Allergy, Unknown, 04/30/19) Uncoded Allergies POPCORN ( Allergy, Unknown, 03/07/21) Past Dxnowdl-Bdmlvc-Rdxhvt Hx Patient Social History Employed/Student: retired Tobacco Use?: No Smoking Status: Unknown if Ever Smoked Substance use?: No Alcohol Use?: Unable to obtain Pt feels they are or have been: Unable to obtain Immunizations Up To Date Date of Influenza Vaccine: Aug 25, 2021 First/Initial COVID19 Vaccinat: 12/08/20 Second COVID19 Vaccination Eric: 12/29/20 Tetanus Booster (TDap): Unknown Date of Pneumonia Vaccine: Aug 28, 2019 Seasonal Allergies Seasonal Allergies: No Current Status status: No Advance Directives: Yes Advance Directive Location: Copy placed in chart Communicates: Verbally Primary Language: Colombian Preferred Spoken Language: Colombian Past Medical History Surgeries: Bowel Surgery, CABG, Hysterectomy COPD Currently Using CPAP: No Currently Using BIPAP: No Coronary Artery Disease, Heart Attack, 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 Sexually Transmitted Disease: No HIV/AIDS: No Renal Failure Diverticulosis Arthritis Diabetes, Insulin dep Loss of Vision: Denies Sleep Difficulties, Anxiety, Depression Blood Disorders: No Adverse Reaction/Blood Tranf: No (N/A) Family Medical History Reviewed Nursing Family Hx Alzheimer's disease Cardiovascular disease 19 FATHER 19 MOTHER Diabetes mellitus 19 MOTHER Heart Disease, Diabetes Review of Systems ROS-Unable to Obtain: see hpi- AMS Constitutional: see HPI Physical Exam Physical Exam Vital Signs Vital Signs - First Documented 05/08/22 00:40 Temp 36.7 Pulse 73 Resp 18 B/P (MAP) 105/45 (65) Pulse Ox 100 O2 Delivery Nasal Cannula O2 Flow Rate 2.00 FiO2 100 Capillary Refill : Less Than 3 Seconds Height, Weight, BMI Height: 0'60.00" Weight: 150lbs. 3.2oz. [id number]; 19.57 BMI Method:Stated General Appearance: No Apparent Distress, Chronically ill, Cachetic HEENT: PERRL/EOMI, Moist Mucous Membranes Neck: Normal Inspection, Supple Respiratory: Lungs Clear, No Respiratory Distress Cardiovascular: Regular Rate, Rhythm, No Murmur, Other (scar from previous open heart surgery apparant and sternotomy wires visible just under skin with central midline scab along it- patient reports this is chronic) Gastrointestinal: Normal Bowel Sounds, Non Tender, Soft Extremity: Normal Capillary Refill, No Calf Tenderness, Pedal Edema Neurologic/Psychiatric: Alert; No Aphasia, No Facial Droop; Other (oriented to person and place only) Skin: Normal Color, Warm/Dry Results Results/Procedures Labs Laboratory Tests 05/08/22 00:40 05/09/22 05:15 Patient resulted labs reviewed. Imaging: Reviewed Imaging Report Imaging [facility], [place] NAME: DARINEL MARTE [facility] REC#: [id number] PT STATUS: ADM IN : 1940 PHYSICIAN: PATTI CELESTE MD ADMIT DATE: 05/08/22 Draft Date of Exam:05/08/22 CHEST 1 VIEW, AP/PA ONLY INDICATION: Altered mental status. COMPARISON: 02/07/2022 FINDINGS: Single frontal radiographic view of the chest was obtained and demonstrates asymmetric elevation left hemidiaphragm with consolidation in left base partially obscuring left hemidiaphragm. This is new compared to prior exam. Right lung is relatively clear. There is no large effusion on the right. No pneumothorax is seen on either side. Cardiac silhouette and pulmonary vasculature are within normal limits. Sternotomy wires are noted. Osseous structures show no gross acute abnormalities. IMPRESSION:. Asymmetric elevation left hemidiaphragm with probable left basilar infiltrate and/or atelectasis. Small effusion cannot be excluded. Dictated on workstation # [id number] Dict: 05/08/22 0638 Trans: 05/08/22 0656 [facility] [id number] Interpreted by: PALMER BRASWELL MD Electronically signed by: Assessment/Plan Admission Diagnosis Severe Sepsis Admission Status: Inpatient Order (span 2 midnights) Reason for Inpatient Admission: see below Assessment and Plan Severe Sepsis UTI Leukocytosis with low temp and hypotensive on arrival UA with UTI Continue on IV abx Has previously grown proteus sensitive to rocephin so will continue that Continue IVF HTN T2DM CAD s/p CABG HFpEF COPD Hypothyroidism Resume home meds after med rec completed has small wound on central chest that she reports is chronic from surgery sternotomy wires visible through skin DVT prophylaxis: Lovenox Diagnosis/Problems Diagnosis/Problems (1) Cardiomyopathy Qualifiers: Cardiomyopathy type: unspecified Qualified Codes: I42.9 - Cardiomyopathy, unspecified (2) COPD (chronic obstructive pulmonary disease) Status: Chronic (3) HTN (hypertension) Status: Chronic (4) Sepsis due to urinary tract infection Status: Acute (5) Anxiety (6) Hypothyroidism (7) DNR (do not resuscitate) (8) Colostomy care (9) Type II diabetes mellitus (10) Chronic respiratory failure with hypoxia (11) Altered mental state (12) Coronary artery disease without angina pectoris Copy Copies To 1: MACEY CAO MD, KATELYN M MD May 08, 2022 12:25
[2022-05-08] MEDS ORDERED: NYST15OI13 TOP (15:55)
[2022-05-08] MEDS ORDERED: FURO20TA4 PO (15:55)
[2022-05-08] MEDS ORDERED: FERR325T5 PO (15:55)
[2022-05-08] MEDS ORDERED: BACL10TA PO (15:55)
[2022-05-08] MEDS ORDERED: ASPI-999 PO (15:55)
[2022-05-08] MEDS ORDERED: CEPH500C PO (15:55)
[2022-05-08 16:00] VITALS: BP 150/68
[2022-05-08] MEDS ORDERED: BISA5TAB8 PO (16:02)
[2022-05-08 20:00] VITALS: BP 170/78
[2022-05-09] VITALS (7 sets, daily range): BP systolic 126–179; BP diastolic 58–100
[2022-05-09] MEDS: RT-ALBUTEROL SULF 2.5 MG/3 ML PRE-MIX VIAL INH SCH ×3 (01:56→15:36)
[2022-05-09 05:45] LABS: HEMATOCRIT 30 % (35-52); HEMOGLOBIN 9.2 g/dL (11.5-16.0); MEAN CORPUSCULAR HEMOGLOBIN 28 pg (25-34); MEAN CORPUSCULAR HGB CONC 31 g/dL (32-36); MEAN CORPUSCULAR VOLUME 88 fL (80-99); MEAN PLATELET VOLUME 9.1 fL (9.0-12.2); PLATELET COUNT 375 10^3/uL (130-400); WHITE BLOOD COUNT 13.4 10^3/uL (4.3-11.0)
[2022-05-09] MEDS: inSUlin ASPART (NovoLOG) 1 UNIT/0.01 ML (CHARGE PER UNIT) SC SCH ×4 (05:56→21:09)
[2022-05-09] MEDS: LEVOTHYROXINE 25 MCG (LEVOTHROID) TAB PO SCH (06:00)
[2022-05-09 06:10] LABS: POTASSIUM 4.4 MMOL/L (3.6-5.0)
[2022-05-09 06:12] LABS: CALCIUM 8.8 MG/DL (8.5-10.1)
[2022-05-09 06:16] LABS: CREATININE SERUM 0.61 MG/DL (0.60-1.30)
[2022-05-09] MEDS ORDERED: VANCOMYCIN INJECTION 0.1 MG in NS (IVPB) 250 ML IV SCH (08:00)
[2022-05-09] MEDS ORDERED: RT-ALBUTEROL SULF 2.5 MG/3 ML PRE-MIX VIAL IH PRN (08:00)
[2022-05-09] MEDS ORDERED: BISACODYL 5 MG (DULCOLAX) TABLET PO PRN (08:00)
[2022-05-09] MEDS ORDERED: ACETAMINOPHEN ER 650 MG (TYLENOL ARTHRITIS) PO PRN (08:00)
[2022-05-09] MEDS ORDERED: BACLOFEN 10 MG (LIORESAL) TAB PO PRN (08:00)
[2022-05-09] MEDS ORDERED: KETOCONAZOLE 2% CREAM 15 GM (NIZORAL) TP PRN (08:00)
[2022-05-09] MEDS ORDERED: VANCOMYCIN 1 GM/NS 250 ML IVPB IV NR ×2 (08:15)
[2022-05-09] MEDS: ISOSORBIDE MONONITRATE 30 MG (IMDUR) TAB PO SCH (08:48)
[2022-05-09] MEDS: ASPIRIN 81 MG CHEW (CHILDREN'S ASA) PO SCH (08:48)
[2022-05-09] MEDS: lisINopril 5 MG (PRINIVIL) TABLET PO SCH (08:48)
[2022-05-09] MEDS: OXYBUTYNIN (DITROPAN) 5 MG TAB PO SCH ×2 (08:48→20:23)
[2022-05-09] MEDS: MAGNESIUM OXIDE (MAG-OX)400 MG TAB PO SCH (08:48)
[2022-05-09] MEDS: FUROSEMIDE 20 MG (LASIX) TAB PO SCH (08:48)
[2022-05-09] MEDS: cefTRIAXone 1 GM IV (PRE-MIX) 50 ML IV SCH (08:49)
[2022-05-09] MEDS: FLUTICASONE NASAL SPRAY (FLONASE) 16 GM BTL NS SCH (09:45)
[2022-05-09] MEDS: NYSTATIN OINTMENT 30 GM TUBE TOP SCH ×2 (10:11→20:23)
--- NOTE | 2022-05-09 13:03 | Progress Note - Hospitalist ---
Subjective HPI/CC On Admission Date Seen by Provider: May 09, 2022 Time Seen by Provider: 12:56 Patient is an 82-year-old female who presented to the ER due to altered mental status and hypotension. She resides at [facility] and rehab and is normally able to communicate but speaks very quietly. Yesterday she was altered overnight and was found to be hypotensive and sent to the emergency department. She has had previous episodes similar to this with urinary tract infections. UA revealed a urinary tract infection and she was admitted for IV antibiotics and further management. This morning she is unable to provide any history. She states she does not feel well. She cannot elaborate further in any way. Subjective/Events-last exam Pt more alert today. No complaints. Discussed results from cultures and need to follow those up and continue on IV abx. Spoke with her sister as well to update. Focused Exam Lactate Level 05/08/22 01:07: Lactic Acid Level 0.29L Time of Focused Exam: 01:15 Objective Exam Vital Signs Vital Signs Date Time Temp Pulse Resp B/P (MAP) Pulse Ox O2 Delivery O2 Flow Rate FiO2 05/09/22 12:50 91 05/09/22 11:40 37.4 19 128/60 (82) 98 Nasal Cannula 2.00 05/08/22 03:58 28 Capillary Refill : Less Than 3 Seconds General Appearance: No Apparent Distress, WD/WN Respiratory: Lungs Clear, No Respiratory Distress Cardiovascular: Regular Rate, Rhythm, No Murmur Gastrointestinal: Normal Bowel Sounds, Non Tender, Soft Neurologic/Psychiatric: Alert, Oriented x3 Results/Procedures Lab Laboratory Tests 05/09/22 05:15 Patient resulted labs reviewed. Imaging: Reviewed Imaging Report Assessment/Plan Assessment and Plan Assess & Plan/Chief Complaint Severe Sepsis UTI UA with UTI Continue on IV abx Has previously grown proteus sensitive to rocephin so will continue that One blood culture is growing MRSA- Vanc added, only in one though so unsure if contaminant- will follow other culture and repeat culture after 24 hours on abx DC IVF HTN T2DM CAD s/p CABG HFpEF COPD Hypothyroidism Continue home meds has small wound on central chest that she reports is chronic from surgery sternotomy wires visible through skin DVT prophylaxis: Lovenox Diagnosis/Problems Diagnosis/Problems (1) Cardiomyopathy Qualifiers: Cardiomyopathy type: unspecified Qualified Codes: I42.9 - Cardiomyopathy, unspecified (2) COPD (chronic obstructive pulmonary disease) Status: Chronic (3) HTN (hypertension) Status: Chronic (4) Sepsis due to urinary tract infection Status: Acute (5) Anxiety (6) Hypothyroidism (7) DNR (do not resuscitate) (8) Colostomy care (9) Type II diabetes mellitus (10) Chronic respiratory failure with hypoxia (11) Altered mental state (12) Coronary artery disease without angina pectoris ALICIA MORGAN MD May 09, 2022 13:03
[2022-05-09] MEDS: SERTRALINE 50 MG (ZOLOFT) TABLET PO SCH ×2 (16:19→17:52)
[2022-05-09] MEDS: LORATADINE (CLARITIN) 10 MG TAB PO SCH (17:52)
[2022-05-09] MEDS: traZODone 100 MG (DESYREL) TAB PO SCH (17:52)
[2022-05-09] MEDS: GABAPENTIN 100 MG (NEURONTIN) CAP PO SCH (17:52)
[2022-05-09] MEDS: SENNA W/DOCUSATE (SENOKOT S) TABLET PO SCH (17:53)
--- NOTE | 2022-05-09 19:03 | Physician Query Clarification ---
Physician Query-General Query to Physician: The medical record reflects the following clinical evidence: Clinical Indicators: Altered Mental status on admission, GCS on admission 8 has improved to 14, Risk Factor(s): Sepsis, UTI Treatment: IV fluids, IV ABX, Neuro assessments, CT scan head 1. Metabolic/Septic encephalopathy present on admission, improving 2. Other explanation of clinical findings 3. Unable to determine (no explanation for clinical findings) Please clarify and document your clinical opinion in the progress notes and discharge summary including the definitive and/or presumptive diagnosis, (suspected or probable), related to the above clinical findings. Please include clinical findings supporting your diagnosis. Venecia Coates MSN, RN Clinical Support Representative [phone] [email or web address] PHYSICIAN RESPONSE: Based on the clinical findings in the record, please respond to the query above on this document as an addendum. Physician Response: Physician Response 1 If you have questions please contact: Live Study Manager: Ext: Thank you for your time and cooperation. Clinical Support Representative/Live Study Manager This is a permanent part of the medical record VENECIA COATES May 09, 2022 19:03 ALICIA MORGAN MD May 10, 2022 11:07
[2022-05-09] MEDS: ESTRADIOL VAGINAL CREAM 42.5 GM (ESTRACE) VG SCH (20:23)
[2022-05-10] VITALS (7 sets, daily range): BP systolic 125–173; BP diastolic 59–87
[2022-05-10] MEDS: RT-ALBUTEROL SULF 2.5 MG/3 ML PRE-MIX VIAL INH SCH ×4 (02:22→19:38)
[2022-05-10] MEDS: inSUlin ASPART (NovoLOG) 1 UNIT/0.01 ML (CHARGE PER UNIT) SC SCH ×4 (05:15→20:07)
[2022-05-10] MEDS: LEVOTHYROXINE 25 MCG (LEVOTHROID) TAB PO SCH (05:22)
[2022-05-10] MEDS: MAGNESIUM OXIDE (MAG-OX)400 MG TAB PO SCH (08:25)
[2022-05-10] MEDS: OXYBUTYNIN (DITROPAN) 5 MG TAB PO SCH ×2 (08:25→20:07)
[2022-05-10] MEDS: ASPIRIN 81 MG CHEW (CHILDREN'S ASA) PO SCH (08:25)
[2022-05-10] MEDS: NYSTATIN OINTMENT 30 GM TUBE TOP SCH ×2 (08:26→20:07)
[2022-05-10] MEDS: FUROSEMIDE 20 MG (LASIX) TAB PO SCH (08:26)
[2022-05-10] MEDS: FLUTICASONE NASAL SPRAY (FLONASE) 16 GM BTL NS SCH (08:26)
[2022-05-10] MEDS: cefTRIAXone 1 GM IV (PRE-MIX) 50 ML IV SCH (08:26)
[2022-05-10] MEDS: VANCOMYCIN 750 MG/NS 250 ML IVPB IV SCH ×2 (08:50)
[2022-05-10] MEDS: lisINopril 5 MG (PRINIVIL) TABLET PO SCH (08:50)
[2022-05-10] MEDS: ISOSORBIDE MONONITRATE 30 MG (IMDUR) TAB PO SCH (08:51)
--- NOTE | 2022-05-10 11:06 | Progress Note - Hospitalist ---
Subjective HPI/CC On Admission Date Seen by Provider: May 10, 2022 Patient is an 82-year-old female who presented to the ER due to altered mental status and hypotension. She resides at [facility] and rehab and is normally able to communicate but speaks very quietly. Yesterday she was altered overnight and was found to be hypotensive and sent to the emergency department. She has had previous episodes similar to this with urinary tract infections. UA revealed a urinary tract infection and she was admitted for IV antibiotics and further management. This morning she is unable to provide any history. She states she does not feel well. She cannot elaborate further in any way. Subjective/Events-last exam Pt reports feeling not as well today but no specific complaints. Focused Exam Lactate Level 05/08/22 01:07: Lactic Acid Level 0.29L Time of Focused Exam: 01:15 Objective Exam Vital Signs Vital Signs Date Time Temp Pulse Resp B/P (MAP) Pulse Ox O2 Delivery O2 Flow Rate FiO2 05/10/22 08:01 100 Nasal Cannula 2.00 05/10/22 07:49 36.6 82 18 156/71 (99) 05/08/22 03:58 28 Capillary Refill : Less Than 3 Seconds General Appearance: No Apparent Distress, Chronically ill, Cachetic Respiratory: Lungs Clear, No Respiratory Distress Cardiovascular: Regular Rate, Rhythm, No Murmur Genital/Rectal: Other (catheter in place) Neurologic/Psychiatric: Alert, Oriented x3 Results/Procedures Lab Patient resulted labs reviewed. Imaging: Reviewed Imaging Report Assessment/Plan Assessment and Plan Assess & Plan/Chief Complaint Severe Sepsis UTI bacteremia UA with UTI Continue on IV abx Has previously grown proteus sensitive to rocephin so will continue that One blood culture is growing MRSA- Vanc- repeat blood culture today One culture with coag negative staph and one with MRSA, MRSA also in urine so unsure what is contaminant vs real infection, await repeat blood cultures HTN T2DM CAD s/p CABG HFpEF COPD Hypothyroidism Continue home meds has small wound on central chest that she reports is chronic from surgery sternotomy wires visible through skin DVT prophylaxis: Lovenox Diagnosis/Problems Diagnosis/Problems (1) Cardiomyopathy Qualifiers: Cardiomyopathy type: unspecified Qualified Codes: I42.9 - Cardiomyopathy, unspecified (2) COPD (chronic obstructive pulmonary disease) Status: Chronic (3) HTN (hypertension) Status: Chronic (4) Sepsis due to urinary tract infection Status: Acute (5) Anxiety (6) Hypothyroidism (7) DNR (do not resuscitate) (8) Colostomy care (9) Type II diabetes mellitus (10) Chronic respiratory failure with hypoxia (11) Altered mental state (12) Coronary artery disease without angina pectoris ALICIA MORGAN MD May 10, 2022 11:06
--- NOTE | 2022-05-10 14:23 | Physical Therapy Evaluation ---
PT Evaluation-General Medical Diagnosis Admission Date May 08, 2022 at 02:27 Medical Diagnosis: severe sepsis Onset Date: May 08, 2022 Therapy Diagnosis Therapy Diagnosis: generalized weakness/debility Height/Weight Height (Feet): 0 Height (Inches): 60.00 Weight (Pounds): 150 Weight (Ounces): 3.2 Precautions Precautions/Isolations: Contact Isolation, Fall Prevention Referral Physician: Andres Reason for Referral: Evaluation/Treatment Medical History Pertinent Medical History: CABG, CAD, COPD, DM, HTN, DE, Renal Insufficiency Current History EMS secondary to low BP and AMS Reviewed History: Yes Social History Home: Senior Living Prior Prior Level of Function SCALE: Activities may be completed with or without assistive devices. 7-Junqgflubw-rvuvyqz completes the activity by him/herself with no assistance from a helper. 5-Set-up or Clean-up Assistance-helper sets up or cleans up; patient completes activity. [place] assists only prior to or following the activity. 4-Supervision or Touching Assistance-helper provides verbal cues and/or touching/steadying and/or contact guard assistance as patient completes activity. Assistance may be provided throughout the activity or intermittently. 3-Partial/Moderate Assistance-helper does LESS THAN HALF the effort. [place] lifts, holds or supports trunk or limbs, but provides less than half the effort. 2-Substantial/Maximal Assistance-helper does MORE THAN HALF the effort. [place] lifts or holds trunk or limbs and provides more than half the effort. 0-Womglaeos-ymhgxy does ALL the effort. Patient does none of the effort to complete the activity. Or, the assistance of 2 or more helpers is required for the patient to complete the activity. If activity was not attempted, code reason: 7-Patient Refused. 9-Not Applicable-not attempted and the patient did not perform the activity before the current illness, exacerbation or injury. 10-Not Attempted due to Environmental Limitations-(lack of equipment, weather restraints, etc.). 88-Not Attempted due to Medical Conditions or Safety Concerns. Bed Mobility: 1 Transfers (B,C,W/C): 1 Gait: 9 Stairs: 9 Wheelchair Mobility: 1 Indoor Mobility (Ambulation): Not Applicalbe Stairs: Not Applicalbe Prior Devices Use: Manual wheelchair nonambulatory PLOF PT Evaluation-Current Subjective Patient agrees to PT. Objective Patient Orientation: Person, Situation Attachments: Oxygen, Guo Catheter ROM/Strength ROM Lower Extremities bilateral LE mild knee flexion contractures Strength Lower Extremities 3-/5 grossly bilateral LE Integumentary/Posture Integumentary refer to nursing notes Bladder Incontinence: Guo Cath Posture trunk and bilateral knee flexed posture in stand Neuromuscular (Tone, Coordination, Reflexes) diminished coordination Sensory Vision: Functional Hearing: Functional Transfers Roll Left to Right (QC): 1 Lying to Sitting/Side of Bed(Q: 1 Sit to Stand (QC): 1 Chair/Trg-oy-Orkah Xfer(QC): 1 Gait Does the Patient Walk?: No and Walking Goal NOT indicated Balance Sitting Static: Fair Sitting Dynamic: Fair Standing Static: Poor Standing Dynamic: Poor Assessment/Needs 82 y.o. female, will be seen short term by skilled PT to address functional strength and mobility to improve current LOF. Patient is non ambulatory PLOF and is w/c and bed bound. Rehab Potential: Guarded PT Alf Goals Alf Goals PT Alf Goals Time Frame: May 19, 2022 Roll Left & Right (QC): 2 Sit to Lying (QC): 2 Lying-Sitting on Side/Bed(QC): 2 Sit to Stand (QC): 2 Chair/Irw-ij-Tbtkb Xfer(QC): 2 PT Plan Problem List Problem List: Activity Tolerance, Functional Strength, Safety, Balance, Transfer, Bed Mobility, ROM Treatment/Plan Treatment Plan: Continue Plan of Care Treatment Plan: Bed Mobility, Education, Functional Activity Jennifer, Functional Strength, Safety, Therapeutic Exercise, Transfers Treatment Duration: May 19, 2022 Frequency: 6 times per week Estimated Hrs Per Day: .25 hour per day Time/GCodes Time In: 1400 Time Out: 1412 Total Billed Treatment Time: 12 Total Billed Treatment 1 visit EVModC 12 min HAMMAD BROWN PT May 10, 2022 14:22
[2022-05-10] MEDS: LORATADINE (CLARITIN) 10 MG TAB PO SCH (18:13)
[2022-05-10] MEDS: SENNA W/DOCUSATE (SENOKOT S) TABLET PO SCH (18:13)
[2022-05-10] MEDS: SERTRALINE 50 MG (ZOLOFT) TABLET PO SCH (18:13)
[2022-05-10] MEDS: GABAPENTIN 100 MG (NEURONTIN) CAP PO SCH (18:13)
[2022-05-10] MEDS: traZODone 100 MG (DESYREL) TAB PO SCH (18:17)
[2022-05-11] MEDS: RT-ALBUTEROL SULF 2.5 MG/3 ML PRE-MIX VIAL INH SCH ×4 (03:11→20:03)
[2022-05-11 03:30] VITALS: BP 150/68
[2022-05-11] MEDS: HYDROcodone/APAP 5 MG/325 MG (LORTAB) TAB PO PRN (03:44)
[2022-05-11 05:25] LABS: HEMATOCRIT 31 % (35-52); HEMOGLOBIN 9.8 g/dL (11.5-16.0); MEAN CORPUSCULAR HEMOGLOBIN 27 pg (25-34); MEAN CORPUSCULAR HGB CONC 31 g/dL (32-36); MEAN CORPUSCULAR VOLUME 87 fL (80-99); PLATELET COUNT 368 10^3/uL (130-400); WHITE BLOOD COUNT 14.3 10^3/uL (4.3-11.0)
[2022-05-11] MEDS: LEVOTHYROXINE 25 MCG (LEVOTHROID) TAB PO SCH (05:31)
[2022-05-11] MEDS: inSUlin ASPART (NovoLOG) 1 UNIT/0.01 ML (CHARGE PER UNIT) SC SCH ×4 (05:38→21:52)
[2022-05-11 05:41] LABS: CREATININE SERUM 0.69 MG/DL (0.60-1.30)
[2022-05-11 05:50] LABS: VANCOMYCIN,TROUGH 8.8 UG/ML (10.0-20.0)
[2022-05-11] MEDS ORDERED: TROUGH ORDER-PHARMACY XX ONE (07:00)
[2022-05-11] MEDS: VANCOMYCIN 750 MG/NS 250 ML IVPB IV SCH ×4 (07:53→21:52)
[2022-05-11 08:12] VITALS: BP 165/72
[2022-05-11 08:41] VITALS: BP 165/72
[2022-05-11] MEDS: ISOSORBIDE MONONITRATE 30 MG (IMDUR) TAB PO SCH (09:22)
[2022-05-11] MEDS: FUROSEMIDE 20 MG (LASIX) TAB PO SCH (09:22)
[2022-05-11] MEDS: lisINopril 5 MG (PRINIVIL) TABLET PO SCH (09:22)
[2022-05-11] MEDS: ASPIRIN 81 MG CHEW (CHILDREN'S ASA) PO SCH (09:22)
[2022-05-11] MEDS: OXYBUTYNIN (DITROPAN) 5 MG TAB PO SCH ×2 (09:22→21:52)
[2022-05-11] MEDS: MAGNESIUM OXIDE (MAG-OX)400 MG TAB PO SCH (09:22)
[2022-05-11] MEDS: cefTRIAXone 1 GM IV (PRE-MIX) 50 ML IV SCH (09:24)
[2022-05-11] MEDS: FLUTICASONE NASAL SPRAY (FLONASE) 16 GM BTL NS SCH (09:25)
[2022-05-11] MEDS: NYSTATIN OINTMENT 30 GM TUBE TOP SCH ×2 (09:26→21:53)
--- NOTE | 2022-05-11 10:07 | Physical Therapy Daily Note ---
PT Daily Note-Current Subjective Patient agrees to PT. Mental Status Patient Orientation: Person, Time, Situation Attachments: Oxygen, Guo Catheter, IV Transfers SCALE: Activities may be completed with or without assistive devices. 8-Yidpxprbmp-ygphinb completes the activity by him/herself with no assistance from a helper. 5-Set-up or Clean-up Assistance-helper sets up or cleans up; patient completes activity. [place] assists only prior to or following the activity. 4-Supervision or Touching Assistance-helper provides verbal cues and/or touching/steadying and/or contact guard assistance as patient completes activity. Assistance may be provided throughout the activity or intermittently. 3-Partial/Moderate Assistance-helper does LESS THAN HALF the effort. [place] lifts, holds or supports trunk or limbs, but provides less than half the effort. 2-Substantial/Maximal Assistance-helper does MORE THAN HALF the effort. [place] lifts or holds trunk or limbs and provides more than half the effort. 9-Kuuiywsjv-fsehze does ALL the effort. Patient does none of the effort to complete the activity. Or, the assistance of 2 or more helpers is required for the patient to complete the activity. If activity was not attempted, code reason: 7-Patient Refused. 9-Not Applicable-not attempted and the patient did not perform the activity before the current illness, exacerbation or injury. 10-Not Attempted due to Environmental Limitations-(lack of equipment, weather restraints, etc.). 88-Not Attempted due to Medical Conditions or Safety Concerns. Lying to Sitting/Side of Bed(Q: 2 Sit to Stand (QC): 2 (x 3 sets with blocking bilateral knees due to patient's increase difficulty with standing. Very retropulsive) Chair/Dwd-fl-Wmobs Xfer(QC): 2 Gait Training Does the Patient Walk?: No and Walking Goal NOT indicated Exercises Seated Therapy Exercises: Ankle pumps, Long arc quads Seated Reps: 15 Assessment Patient up in recliner with needs met. Patient very retropulsive with sit to stand and SPT. PT Assisted Goals Skein Yarn Dyer Goals PT Assisted Goals Time Frame: May 19, 2022 Roll Left & Right (QC): 2 Sit to Lying (QC): 2 Lying-Sitting on Side/Bed(QC): 2 Sit to Stand (QC): 2 Chair/Avd-gx-Nwaev Xfer(QC): 2 PT Plan Treatment/Plan Treatment Plan: Continue Plan of Care Treatment Plan: Bed Mobility, Education, Functional Activity Jennifer, Functional Strength, Safety, Therapeutic Exercise, Transfers Treatment Duration: May 19, 2022 Frequency: 6 times per week Estimated Hrs Per Day: .25 hour per day Time/GCodes Time In: 930 Time Out: 940 Total Billed Treatment Time: 10 Total Billed Treatment 1 visit FA 10 min HAMMAD BROWN PT May 11, 2022 10:07
--- NOTE | 2022-05-11 11:08 | Progress Note - Hospitalist ---
Subjective HPI/CC On Admission Date Seen by Provider: May 11, 2022 Patient is an 82-year-old female who presented to the ER due to altered mental status and hypotension. She resides at [facility] and rehab and is normally able to communicate but speaks very quietly. Yesterday she was altered overnight and was found to be hypotensive and sent to the emergency department. She has had previous episodes similar to this with urinary tract infections. UA revealed a urinary tract infection and she was admitted for IV antibiotics and further management. This morning she is unable to provide any history. She states she does not feel well. She cannot elaborate further in any way. Subjective/Events-last exam Pt reports feeling better. No complaints. Focused Exam Time of Focused Exam: 01:15 Objective Exam Vital Signs Vital Signs Date Time Temp Pulse Resp B/P (MAP) Pulse Ox O2 Delivery O2 Flow Rate FiO2 05/11/22 08:41 36.0 81 98 24 05/11/22 08:37 Nasal Cannula 1.00 05/11/22 08:12 16 165/72 (103) Capillary Refill : Less Than 3 Seconds General Appearance: No Apparent Distress, Chronically ill, Cachetic Respiratory: Lungs Clear, No Respiratory Distress Cardiovascular: Regular Rate, Rhythm, No Murmur Gastrointestinal: Normal Bowel Sounds, Non Tender, Soft Neurologic/Psychiatric: Alert, Oriented x3 Results/Procedures Lab Laboratory Tests 05/11/22 05:00 Patient resulted labs reviewed. Imaging: Reviewed Imaging Report Assessment/Plan Assessment and Plan Assess & Plan/Chief Complaint Severe Sepsis UTI bacteremia UA with UTI Continue on IV abx Has previously grown proteus sensitive to rocephin so will continue that One blood culture is growing MRSA- Vanc- repeat blood culture from yesterday pending One culture with coag negative staph and one with MRSA, MRSA also in urine so unsure what is contaminant vs real infection, await repeat blood cultures HTN T2DM CAD s/p CABG HFpEF COPD Hypothyroidism Continue home meds has small wound on central chest that she reports is chronic from surgery sternotomy wires visible through skin DVT prophylaxis: Lovenox Diagnosis/Problems Diagnosis/Problems (1) Cardiomyopathy Qualifiers: Cardiomyopathy type: unspecified Qualified Codes: I42.9 - Cardiomyopathy, unspecified (2) COPD (chronic obstructive pulmonary disease) Status: Chronic (3) HTN (hypertension) Status: Chronic (4) Sepsis due to urinary tract infection Status: Acute (5) Anxiety (6) Hypothyroidism (7) DNR (do not resuscitate) (8) Colostomy care (9) Type II diabetes mellitus (10) Chronic respiratory failure with hypoxia (11) Altered mental state (12) Coronary artery disease without angina pectoris ALICIA MORGAN MD May 11, 2022 11:08
[2022-05-11 11:13] VITALS: BP 158/65
[2022-05-11 15:52] VITALS: BP 156/69
[2022-05-11] MEDS: LORATADINE (CLARITIN) 10 MG TAB PO SCH (17:36)
[2022-05-11] MEDS: GABAPENTIN 100 MG (NEURONTIN) CAP PO SCH (17:36)
[2022-05-11] MEDS: SERTRALINE 50 MG (ZOLOFT) TABLET PO SCH (17:36)
[2022-05-11] MEDS: traZODone 100 MG (DESYREL) TAB PO SCH (17:36)
[2022-05-11] MEDS: SENNA W/DOCUSATE (SENOKOT S) TABLET PO SCH (17:37)
[2022-05-11 19:00] VITALS: BP 189/79
[2022-05-11] MEDS: ESTRADIOL VAGINAL CREAM 42.5 GM (ESTRACE) VG SCH (21:53)
[2022-05-12] VITALS (7 sets, daily range): BP systolic 146–160; BP diastolic 52–75
[2022-05-12] MEDS: RT-ALBUTEROL SULF 2.5 MG/3 ML PRE-MIX VIAL INH SCH ×3 (03:03→20:30)
[2022-05-12] MEDS: inSUlin ASPART (NovoLOG) 1 UNIT/0.01 ML (CHARGE PER UNIT) SC SCH ×4 (05:33→20:49)
[2022-05-12] MEDS: LEVOTHYROXINE 25 MCG (LEVOTHROID) TAB PO SCH (06:23)
[2022-05-12] MEDS: ACETAMINOPHEN 500 MG TAB (TYLENOL) PO PRN (06:23)
--- NOTE | 2022-05-12 09:48 | Physical Therapy Daily Note ---
PT Daily Note-Current Subjective States that she is feeling okay and ready to get into a chair. Transfers SCALE: Activities may be completed with or without assistive devices. 5-Qyewgwqeue-diedrmx completes the activity by him/herself with no assistance from a helper. 5-Set-up or Clean-up Assistance-helper sets up or cleans up; patient completes activity. [place] assists only prior to or following the activity. 4-Supervision or Touching Assistance-helper provides verbal cues and/or touching/steadying and/or contact guard assistance as patient completes activity. Assistance may be provided throughout the activity or intermittently. 3-Partial/Moderate Assistance-helper does LESS THAN HALF the effort. [place] lifts, holds or supports trunk or limbs, but provides less than half the effort. 2-Substantial/Maximal Assistance-helper does MORE THAN HALF the effort. [place] lifts or holds trunk or limbs and provides more than half the effort. 6-Znabglcpm-hdvizz does ALL the effort. Patient does none of the effort to complete the activity. Or, the assistance of 2 or more helpers is required for the patient to complete the activity. If activity was not attempted, code reason: 7-Patient Refused. 9-Not Applicable-not attempted and the patient did not perform the activity before the current illness, exacerbation or injury. 10-Not Attempted due to Environmental Limitations-(lack of equipment, weather restraints, etc.). 88-Not Attempted due to Medical Conditions or Safety Concerns. Roll Left & Right (QC): 4 Sit to Stand (QC): 4 Gait Training Does the Patient Walk?: Yes Distance: 2' Gait Persons Needed: 1 Gait Assistive Device: FWW Assessment Current Status: Excellent Progress The patient did well transferring to a chair. PT Supercharger Repair Supervisor Goals Fpc Goals PT Fpc Goals Time Frame: May 19, 2022 Roll Left & Right (QC): 2 Sit to Lying (QC): 2 Lying-Sitting on Side/Bed(QC): 2 Sit to Stand (QC): 2 Chair/Pse-ot-Wgnqi Xfer(QC): 2 PT Plan Treatment/Plan Treatment Plan: Continue Plan of Care Treatment Plan: Bed Mobility, Education, Functional Activity Jennifer, Functional Strength, Safety, Therapeutic Exercise, Transfers Treatment Duration: May 19, 2022 Frequency: 6 times per week Estimated Hrs Per Day: .25 hour per day Time/GCodes Time In: 929 Time Out: 939 Total Billed Treatment Time: 10 Total Billed Treatment 1, FA x 10' RENE LEACH PT May 12, 2022 09:48
[2022-05-12] MEDS: VANCOMYCIN 750 MG/NS 250 ML IVPB IV SCH ×4 (10:07→20:48)
[2022-05-12] MEDS: cefTRIAXone 1 GM IV (PRE-MIX) 50 ML IV SCH (10:07)
[2022-05-12] MEDS: FLUTICASONE NASAL SPRAY (FLONASE) 16 GM BTL NS SCH (10:07)
[2022-05-12] MEDS: ASPIRIN 81 MG CHEW (CHILDREN'S ASA) PO SCH (10:08)
[2022-05-12] MEDS: MAGNESIUM OXIDE (MAG-OX)400 MG TAB PO SCH (10:08)
[2022-05-12] MEDS: ISOSORBIDE MONONITRATE 30 MG (IMDUR) TAB PO SCH (10:08)
[2022-05-12] MEDS: OXYBUTYNIN (DITROPAN) 5 MG TAB PO SCH ×2 (10:08→20:48)
[2022-05-12] MEDS: FUROSEMIDE 20 MG (LASIX) TAB PO SCH (10:08)
[2022-05-12] MEDS: lisINopril 5 MG (PRINIVIL) TABLET PO SCH (10:09)
[2022-05-12] MEDS: NYSTATIN OINTMENT 30 GM TUBE TOP SCH ×2 (10:09→20:49)
[2022-05-12] MEDS: SENNA W/DOCUSATE (SENOKOT S) TABLET PO SCH (17:26)
[2022-05-12] MEDS: traZODone 100 MG (DESYREL) TAB PO SCH (17:26)
[2022-05-12] MEDS: GABAPENTIN 100 MG (NEURONTIN) CAP PO SCH (17:26)
[2022-05-12] MEDS: LORATADINE (CLARITIN) 10 MG TAB PO SCH (17:26)
[2022-05-12] MEDS: SERTRALINE 50 MG (ZOLOFT) TABLET PO SCH (17:26)
--- NOTE | 2022-05-12 19:10 | Progress Note - Hospitalist ---
Subjective HPI/CC On Admission Date Seen by Provider: May 12, 2022 Time Seen by Provider: 12:50 Patient is an 82-year-old female who presented to the ER due to altered mental status and hypotension. She resides at [facility] rehab and is normally able to communicate but speaks very quietly. Yesterday she was altered overnight and was found to be hypotensive and sent to the emergency department. She has had previous episodes similar to this with urinary tract infections. UA revealed a urinary tract infection and she was admitted for IV antibiotics and further management. This morning she is unable to provide any history. She states she does not feel well. She cannot elaborate further in any way. Subjective/Events-last exam She is feeling ok. She is sitting in her bedside chair. She was able to eat lunch. She has no complaints at this time. Focused Exam Time of Focused Exam: 01:15 Objective Exam Vital Signs Vital Signs Date Time Temp Pulse Resp B/P (MAP) Pulse Ox O2 Delivery O2 Flow Rate FiO2 05/12/22 16:31 35.9 80 20 146/67 (93) 100 Nasal Cannula 2.00 05/12/22 07:07 21 Capillary Refill : Less Than 3 Seconds General Appearance: No Apparent Distress, Chronically ill Respiratory: Lungs Clear, No Respiratory Distress Cardiovascular: Regular Rate, Rhythm, No Murmur Gastrointestinal: Normal Bowel Sounds, Non Tender, Soft Extremity: Normal Inspection, Pedal Edema Neurologic/Psychiatric: Alert, Normal Mood/Affect Skin: Normal Color, Warm/Dry Results/Procedures Lab Patient resulted labs reviewed. Imaging: Reviewed Imaging Report Assessment/Plan Assessment and Plan Assess & Plan/Chief Complaint MRSA and Proteus UTI Possible MRSA bactermia UA with UTI, culture with Proteus and Staph aureus Initial blood culture with MRSA, repeat culture with no growth without MRSA coverage, likely contaminant Continue Vanc Last dose of Rocephin today HTN T2DM CAD s/p CABG HFpEF COPD Hypothyroidism Continue home meds has small wound on central chest that she reports is chronic from surgery sternotomy wires visible through skin DVT prophylaxis: Lovenox Severe sepsis, resolved Diagnosis/Problems Diagnosis/Problems (1) MRSA infection Status: Acute (2) Urinary tract infection due to Proteus Status: Acute (3) Complicated UTI (urinary tract infection) Status: Acute (4) Severe sepsis Status: Acute JACQUELINE MCDANIEL MD May 12, 2022 19:10
[2022-05-13] VITALS: BP 157/71
[2022-05-13] MEDS: HYDROcodone/APAP 5 MG/325 MG (LORTAB) TAB PO PRN (00:11)
[2022-05-13 04:05] VITALS: BP 152/65
[2022-05-13] MEDS: inSUlin ASPART (NovoLOG) 1 UNIT/0.01 ML (CHARGE PER UNIT) SC SCH ×4 (06:02→20:36)
[2022-05-13] MEDS: LEVOTHYROXINE 25 MCG (LEVOTHROID) TAB PO SCH (06:20)
[2022-05-13 07:19] VITALS: BP 159/71
[2022-05-13] MEDS: VANCOMYCIN 750 MG/NS 250 ML IVPB IV SCH ×4 (08:04→20:36)
[2022-05-13] MEDS: OXYBUTYNIN (DITROPAN) 5 MG TAB PO SCH ×2 (08:23→20:36)
[2022-05-13] MEDS: FUROSEMIDE 20 MG (LASIX) TAB PO SCH (08:23)
[2022-05-13] MEDS: ASPIRIN 81 MG CHEW (CHILDREN'S ASA) PO SCH (08:23)
[2022-05-13] MEDS: lisINopril 5 MG (PRINIVIL) TABLET PO SCH (08:23)
[2022-05-13] MEDS: MAGNESIUM OXIDE (MAG-OX)400 MG TAB PO SCH (08:23)
[2022-05-13] MEDS: ISOSORBIDE MONONITRATE 30 MG (IMDUR) TAB PO SCH (08:23)
[2022-05-13] MEDS: NYSTATIN OINTMENT 30 GM TUBE TOP SCH ×2 (08:24→20:37)
[2022-05-13] MEDS: FLUTICASONE NASAL SPRAY (FLONASE) 16 GM BTL NS SCH (08:24)
[2022-05-13] MEDS: RT-ALBUTEROL SULF 2.5 MG/3 ML PRE-MIX VIAL INH SCH ×2 (08:49→20:09)
[2022-05-13 09:36] LABS: BASOPHILS # (AUTO) 0.1 10^3/uL (0.0-0.1); BASOPHILS % (AUTO) 1 % (0-10); EOSINOPHILS # (AUTO) 0.4 10^3/uL (0.0-0.3); EOSINOPHILS % (AUTO) 3 % (0-10); HEMATOCRIT 31 % (35-52); HEMOGLOBIN 9.5 g/dL (11.5-16.0); LYMPHOCYTES % (AUTO) 33 % (12-44); MEAN CORPUSCULAR HEMOGLOBIN 27 pg (25-34); MEAN CORPUSCULAR HGB CONC 31 g/dL (32-36); MEAN CORPUSCULAR VOLUME 89 fL (80-99); MONOCYTES # (AUTO) 0.7 10^3/uL (0.0-1.0); MONOCYTES % (AUTO) 5 % (0-12); NEUTROPHILS # (AUTO) 8.9 10^3/uL (1.8-7.8); NEUTROPHILS % (AUTO) 58 % (42-75); PLATELET COUNT 454 10^3/uL (130-400); WHITE BLOOD COUNT 15.3 10^3/uL (4.3-11.0)
[2022-05-13 09:44] LABS: POTASSIUM 4.2 MMOL/L (3.6-5.0)
[2022-05-13 09:45] LABS: CALCIUM 8.8 MG/DL (8.5-10.1)
[2022-05-13 09:50] LABS: CREATININE SERUM 0.68 MG/DL (0.60-1.30)
[2022-05-13 10:05] LABS: EOSINOPHILS % (MANUAL) 3 %; HYPOCHROMASIA SLIGHT; LYMPHOCYTES % (MANUAL) 38 %; MONOCYTES % (MANUAL) 4 %; NEUTROPHILS % (MANUAL) 55 %
[2022-05-13 11:43] VITALS: BP 144/66
[2022-05-13 15:30] VITALS: BP 144/69
[2022-05-13] MEDS: SERTRALINE 50 MG (ZOLOFT) TABLET PO SCH (17:47)
[2022-05-13] MEDS: LORATADINE (CLARITIN) 10 MG TAB PO SCH (17:47)
[2022-05-13] MEDS: SENNA W/DOCUSATE (SENOKOT S) TABLET PO SCH (17:48)
[2022-05-13] MEDS: GABAPENTIN 100 MG (NEURONTIN) CAP PO SCH (17:48)
[2022-05-13] MEDS: traZODone 100 MG (DESYREL) TAB PO SCH (17:51)
--- NOTE | 2022-05-13 19:02 | Progress Note - Hospitalist ---
Subjective HPI/CC On Admission Date Seen by Provider: May 13, 2022 Time Seen by Provider: 10:40 Patient is an 82-year-old female who presented to the ER due to altered mental status and hypotension. She resides at [facility] and rehab and is normally able to communicate but speaks very quietly. Yesterday she was altered overnight and was found to be hypotensive and sent to the emergency department. She has had previous episodes similar to this with urinary tract infections. UA revealed a urinary tract infection and she was admitted for IV antibiotics and further management. This morning she is unable to provide any history. She states she does not feel well. She cannot elaborate further in any way. Subjective/Events-last exam She is sitting in her chair. She is tired. She has no other complaints. Focused Exam Time of Focused Exam: 01:15 Objective Exam Vital Signs Vital Signs Date Time Temp Pulse Resp B/P (MAP) Pulse Ox O2 Delivery O2 Flow Rate FiO2 05/13/22 15:30 36.8 81 20 144/69 (94) 100 Nasal Cannula 2.00 05/13/22 09:52 100 Capillary Refill : Less Than 3 Seconds General Appearance: No Apparent Distress, Chronically ill Respiratory: Lungs Clear, No Respiratory Distress Cardiovascular: Regular Rate, Rhythm, No Murmur Gastrointestinal: Normal Bowel Sounds, Soft Extremity: Normal Inspection, No Pedal Edema Neurologic/Psychiatric: Alert, Normal Mood/Affect Skin: Normal Color, Warm/Dry Results/Procedures Lab Laboratory Tests 05/13/22 09:30 Patient resulted labs reviewed. Imaging: Reviewed Imaging Report Assessment/Plan Assessment and Plan Assess & Plan/Chief Complaint MRSA and Proteus UTI Possible MRSA bactermia UA with UTI, culture with Proteus and Staph aureus Initial blood culture with MRSA, repeat cultures with no growth Continue Vanc s/p Rocephin HTN T2DM CAD s/p CABG HFpEF COPD Hypothyroidism Continue home meds has small wound on central chest that she reports is chronic from surgery sternotomy wires visible through skin DVT prophylaxis: Lovenox Severe sepsis, resolved Diagnosis/Problems Diagnosis/Problems (1) MRSA infection Status: Acute (2) Urinary tract infection due to Proteus Status: Acute (3) Complicated UTI (urinary tract infection) Status: Acute (4) Severe sepsis Status: Acute JACQUELINE MCDANIEL MD May 13, 2022 19:02
[2022-05-13 19:30] VITALS: BP 161/68
[2022-05-14] VITALS: BP 187/76
[2022-05-14 03:48] VITALS: BP 153/75
[2022-05-14] MEDS: inSUlin ASPART (NovoLOG) 1 UNIT/0.01 ML (CHARGE PER UNIT) SC SCH ×2 (06:00→11:37)
[2022-05-14] MEDS: LEVOTHYROXINE 25 MCG (LEVOTHROID) TAB PO SCH (06:08)
[2022-05-14 07:08] VITALS: BP 182/82
[2022-05-14] MEDS: RT-ALBUTEROL SULF 2.5 MG/3 ML PRE-MIX VIAL INH SCH (07:43)
[2022-05-14] MEDS: ASPIRIN 81 MG CHEW (CHILDREN'S ASA) PO SCH (08:24)
[2022-05-14] MEDS: OXYBUTYNIN (DITROPAN) 5 MG TAB PO SCH (08:24)
[2022-05-14] MEDS: FUROSEMIDE 20 MG (LASIX) TAB PO SCH (08:24)
[2022-05-14] MEDS: lisINopril 5 MG (PRINIVIL) TABLET PO SCH (08:24)
[2022-05-14] MEDS: MAGNESIUM OXIDE (MAG-OX)400 MG TAB PO SCH (08:24)
[2022-05-14] MEDS: ISOSORBIDE MONONITRATE 30 MG (IMDUR) TAB PO SCH (08:24)
[2022-05-14] MEDS: FLUTICASONE NASAL SPRAY (FLONASE) 16 GM BTL NS SCH (08:25)
[2022-05-14] MEDS: VANCOMYCIN 750 MG/NS 250 ML IVPB IV SCH ×2 (08:25)
[2022-05-14] MEDS: NYSTATIN OINTMENT 30 GM TUBE TOP SCH (08:25)
[2022-05-14] MEDS ORDERED: lisINopril 20 MG (PRINIVIL) TABLET PO SCH (09:00)
[2022-05-14 11:00] VITALS: BP 138/60
--- NOTE | 2022-05-14 11:36 | Physical Therapy Daily Note ---
PT Daily Note-Current Subjective Patient agrees to PT. Mental Status Patient Orientation: Person, Time, Situation Attachments: Oxygen, Guo Catheter Transfers SCALE: Activities may be completed with or without assistive devices. 7-Sdgddkzoei-xvvdrid completes the activity by him/herself with no assistance from a helper. 5-Set-up or Clean-up Assistance-helper sets up or cleans up; patient completes activity. [place] assists only prior to or following the activity. 4-Supervision or Touching Assistance-helper provides verbal cues and/or touching/steadying and/or contact guard assistance as patient completes activity. Assistance may be provided throughout the activity or intermittently. 3-Partial/Moderate Assistance-helper does LESS THAN HALF the effort. [place] lifts, holds or supports trunk or limbs, but provides less than half the effort. 2-Substantial/Maximal Assistance-helper does MORE THAN HALF the effort. [place] lifts or holds trunk or limbs and provides more than half the effort. 5-Xkchcmtgw-qewtzj does ALL the effort. Patient does none of the effort to complete the activity. Or, the assistance of 2 or more helpers is required for the patient to complete the activity. If activity was not attempted, code reason: 7-Patient Refused. 9-Not Applicable-not attempted and the patient did not perform the activity before the current illness, exacerbation or injury. 10-Not Attempted due to Environmental Limitations-(lack of equipment, weather restraints, etc.). 88-Not Attempted due to Medical Conditions or Safety Concerns. Sit to Stand (QC): 3 (x 3 sets mod assist with slight retropulsion) Chair/Fal-oj-Gtpho Xfer(QC): 3 Exercises Seated Therapy Exercises: Ankle pumps, Long arc quads Seated Reps: 15 (x 2 sets) Standing: Marching Standing Reps: 15 (x 2 sets) Assessment Patient up in recliner with needs met. Plan dismissal to [place] on this date. PT Long-Term Goals Long-Term Goals PT Long-Term Goals Time Frame: May 19, 2022 Roll Left & Right (QC): 2 Sit to Lying (QC): 2 Lying-Sitting on Side/Bed(QC): 2 Sit to Stand (QC): 2 Chair/Nro-os-Yjggb Xfer(QC): 2 PT Plan Treatment/Plan Treatment Plan: Continue Plan of Care Treatment Plan: Bed Mobility, Education, Functional Activity Jennifer, Functional Strength, Safety, Therapeutic Exercise, Transfers Treatment Duration: May 19, 2022 Frequency: 6 times per week Estimated Hrs Per Day: .25 hour per day Time/GCodes Time In: 1120 Time Out: 1131 Total Billed Treatment Time: 11 Total Billed Treatment 1 visit EX 11 min HAMMAD BROWN PT May 14, 2022 11:36
[2022-05-14] MEDS ORDERED: SULF1TAB38 PO (12:28)
--- NOTE | 2022-05-14 12:42 | Discharge Summary ---
Discharge Summary Hospital Course Hospital Course Date of Admission: May 08, 2022 at 02:27 Admission Diagnosis : Severe sepsis due to UTI Family Physician/Provider: Josh Navarro MD Date of Discharge: 05/14/22 Discharge Diagnosis: Severe sepsis due to MRSA UTI Hospital Course: Sarah Morales is an 82 year old female who was admitted with severe sepsis due to UTI. Her urine culture returned with staph. She had one blood culture positive for MRSA. This was unclear if it was a true infection or contamination. She was treated with Vancomycin and then transitioned to Bactrim. She will complete a two week course of antibiotics. She was discharged back to [facility] for ongoing prison needs. Labs and Pending Lab Test: Laboratory Tests 05/13/22 15:35: Glucometer 154H 05/13/22 20:08: Glucometer 189H 05/14/22 05:59: Glucometer 167H 05/14/22 10:14: Glucometer 163H Microbiology 05/10/22 Blood Culture - Preliminary, Resulted No growth 05/08/22 Urine Culture - Final, Complete Proteus Group YEAST Probable Staph Aureus Home Meds Active Bactrim Ds Tablet (Sulfamethoxazole/Trimethoprim) 1 Each Tablet 1 Each PO BID 8 Days Reported Bisacodyl 5 Mg Tablet.dr 10 Mg PO DAILY PRN Nystatin 100,000 Unit/Gram Oint...g. 1 Applic TOP BID APPLY TO GROIN, INNER THIGHS AND UNDER BREASTS UNTIL RESOLVED Baclofen 10 Mg Tablet 10 Mg PO TID PRN Cephalexin 500 Mg Capsule 500 Mg PO DAILY Furosemide 20 Mg Tablet 20 Mg PO DAILY Ferrous Sulfate 325 Mg (65 Mg Iron) Tablet.dr 325 Mg PO DAILY Aspirin 81 Mg Tab.chew 81 Mg PO DAILY Ketoconazole 15 Gm Cream..g. 1 Applic TP BID PRN APPLY TO BREAST, GROIN AND ABDOMEN Remedy Nutrashield (Dimethicone) 118 Ml Cream.ml. 1 Applic TP BID Pro-Stat Awc Liquid (Amino Acids/Protein Hydrolys) 887 Ml Liquid 30 Ml PO BID Lisinopril 5 Mg Tablet 5 Mg PO DAILY HOLD AND NOTIFY NURSE/PCP IF BP <80/50 OR >180/110 OR PULSE <50 OR >110 Isosorbide Mononitrate ER (Isosorbide Mononitrate) 30 Mg Tab.er.24h 30 Mg PO DAILY HOLD AND NOTIFY NURSE/PCP IF BP <80/50 OR >180/110 OR PULSE <50 OR >110 Chloraseptic (Phenol) 20 Ml [place] 2 Sprays MM Q4H PRN Co Q-10 (Ubidecarenone) 50 Mg Capsule 50 Mg PO DAILY Ondansetron HCl 4 Mg Tablet 4 Mg PO Q8H PRN Remedy Antifungal (Miconazole Nitrate) 85 Gm Powder 1 Applic TP Q8H PRN USE NEEDED FOR PREVENTION DURING CHANGE IN COLOSTOMY Muscle Rub Ultra Str Cream (Methyl Salicylate/Menth/Camph) 114 Gm Cream..g. 1 Applic TP Q6H PRN APPLY TO LOWER BACK Vitamin C (Ascorbate Calcium) 500 Mg Tablet 500 Mg PO DAILY Acetaminophen 8 Hour (Acetaminophen) 650 Mg Tablet.er 650 Mg PO Q8H PRN Vitamin D3 (Cholecalciferol (Vitamin D3)) 25 Mcg Capsule 50 Mcg PO DAILY Ativan (Lorazepam) 0.5 Mg Tablet 0.5 Mg PO DAILY Oxybutynin Chloride ER (Oxybutynin Chloride) 10 Mg Tab.er.24 10 Mg PO DAILY Metoprolol Succinate 25 Mg Tab.er.24h 25 Mg PO DAILY HOLD IF SBP <100 OR PULSE <60 Lactobacillus 1 Million Cfu Tb (L. Acidophilus/L.bulgaricus) 1 Each Tablet 1 Each PO 0600,1400 Jardiance (Empagliflozin) 25 Mg Tablet 25 Mg PO DAILY Hydrocodone-Acetamin 5-325 mg (Hydrocodone/Acetaminophen) 1 Each Tablet 1-2 Each PO Q4H PRN Polyethylene Glycol 3350 17 Gm Powd.pack 17 Gm PO Q12H PRN Estrace Cream (Estradiol) 42.5 Gm Cream.appl 1 Gm VG MON,WE,FR @HS B-12 (Cyanocobalamin (Vitamin B-12)) 500 Mcg Tablet 500 Mcg PO Q48H Atorvastatin Calcium 20 Mg Tablet 20 Mg PO 1800 Aspercreme 10% Cream (Trolamine Salicylate/Aloe Vera) 35.4 Gm Cream..g. 1 Applic TP Q8H PRN APPLY TO LOWER BACK Proair Hfa (Albuterol Sulfate) 1 Puff Puff 2 Puff IH Q4H PRN Zyrtec (Cetirizine HCl) 10 Mg Tablet 5 Mg PO 1800 TAKES 1/2 (10MG) TABLET Biofreeze (Menthol) 118 Ml Gel..ml. 1 Applic TP Q6H PRN APPLY TO LOWER BACK Trazodone HCl 100 Mg Tablet 100 Mg PO 1800 Synthroid (Levothyroxine Sodium) 25 Mcg Tablet 25 Mcg PO DAILY Sertraline HCl 50 Mg Tablet 50 Mg PO 1800 Senna S Tablet (Sennosides/Docusate Sodium) 1 Each Tablet 3 Ea PO 1800 Milk of Magnesia (Magnesium Hydroxide) 400 Mg/5 Ml Oral.susp 30 Ml PO DAILY PRN Magox 400 (Magnesium Oxide) 400 Mg Tablet 400 Mg PO DAILY Gabapentin 100 Mg Capsule 200 Mg PO 1800 TAKES 2 (100MG) CAPSULES Fluticasone Propionate 16 Gm [place].susp 1 [place] NSEACH DAILY Instructions to Patient/Family Assessment/Instructions Take medications as prescribed. Complete your course of antibiotics even if you are feeling better. Follow up with your PCP. Return with worsening weakness, shortness of breath, or if you feel like you are getting worse. Follow Up Appt.: next penitentiary rounds Skilled NF Admit to: On License Of [facility] Certification (SNF) I certify that SNF services are required to be given on an inpatient basis because of the above named patient's need for prison care on a continuing basis for the conditions(s) for which he/she was receiving inpatient hospital services prior to his/her transfer to the SNF. Intermediate Facility Order: Nursing Services, Computer Graphics Illustrator-Evaluate & Treat, Physical Therapy-Evaluate & Treat, Wound Care-Eval/Treat Oxygen Delivery Method: Nasal Cannula Discharge Diet: Low Sodium Diet Daily Activity as Tolerated: Yes Resuscitation Status: Do Not Resuscitate Jacqueline Mcdaniel May 14, 2022 12:35 Discharge Physical Exam General: Alert, No Acute Distress Heart: Regular Rate, No Murmurs Abdomen: Normal Bowel Sounds, Soft, No Tenderness Extremities: No Edema, No Tenderness/Swelling Psych/Mental Status: Mental Status NL, Mood NL JACQUELINE MCDANIEL MD May 14, 2022 12:42
[2022-05-14 15:36] VITALS: BP 138/60
[2022-05-15] MEDS ORDERED: TROUGH ORDER-PHARMACY XX ONE (07:00)
== END 2022-05-14 15:35 | DRG 871 ==
LOC: EDUNIT# 00:34 → ER 00:36 → 4TH 02:27
PROVIDERS: ADMIT Internal Medicine; ATTEND Internal Medicine
DX: A41.02 Sepsis due to Methicillin resistant Staphylococcus aureus (principal); G93.41 Metabolic encephalopathy; N39.0 Urinary tract infection, site not specified; I50.32 Chronic diastolic (congestive) heart failure; I42.9 Cardiomyopathy, unspecified; J96.11 Chronic respiratory failure with hypoxia; R65.20 Severe sepsis without septic shock; J44.9 Chronic obstructive pulmonary disease, unspecified; I25.10 Atherosclerotic heart disease of native coronary artery without angina pectoris; I12.9 Hypertensive chronic kidney disease with stage 1 through stage 4 chronic kidney disease, or unspecified chronic kidney disease; N18.9 Chronic kidney disease, unspecified; M19.90 Unspecified osteoarthritis, unspecified site; F41.9 Anxiety disorder, unspecified; Z79.82 Long term (current) use of aspirin; Z79.899 Other long term (current) drug therapy; Z95.1 Presence of aortocoronary bypass graft; I25.2 Old myocardial infarction; K57.90 Diverticulosis of intestine, part unspecified, without perforation or abscess without bleeding; F32.A Depression, unspecified; E11.22 Type 2 diabetes mellitus with diabetic chronic kidney disease; Z20.822 Contact with and (suspected) exposure to COVID-19; I95.9 Hypotension, unspecified; E03.9 Hypothyroidism, unspecified; Z66 Do not resuscitate; Z93.3 Colostomy status; B96.4 Proteus (mirabilis) (morganii) as the cause of diseases classified elsewhere
CPT/HCPCS: 36415; 70450; 71045; 80048; 80053; 80202; 81000; 82947; 83605; 84484; 85007; 85025; 85027; 85610; 85730; 87040; 87077; 87088; 87186; 87636; 93005; 94640; 94760

== ENCOUNTER 2022-05-20 09:08 | Inpatient (IN) | payer MEDICARE, MEDICAID ==
[~2022-05-20] VITALS: Ht 154.9 cm; Wt 52.0 kg
[~2022-05-20 09:08] MED LIST changes: +ASPI-999 PO; +BACL10TA PO; +CEPH500C PO; +FERR325T5 PO; +FURO20TA4 PO; +NYST15OI13 TOP; +SULF1TAB38 PO
[2022-05-20] MEDS ORDERED: LACTATED RINGERS 1,000 ML IV ONE (09:15)
[2022-05-20 09:24] LABS: BASOPHILS # (AUTO) 0.1 10^3/uL (0.0-0.1); BASOPHILS % (AUTO) 1 % (0-10); EOSINOPHILS # (AUTO) 0.2 10^3/uL (0.0-0.3); EOSINOPHILS % (AUTO) 1 % (0-10); HEMATOCRIT 34 % (35-52); HEMOGLOBIN 10.3 g/dL (11.5-16.0); LYMPHOCYTES # (AUTO) 5.7 10^3/uL (1.0-4.0); LYMPHOCYTES % (AUTO) 30 % (12-44); MEAN CORPUSCULAR HEMOGLOBIN 27 pg (25-34); MEAN CORPUSCULAR HGB CONC 30 g/dL (32-36); MEAN CORPUSCULAR VOLUME 91 fL (80-99); MEAN PLATELET VOLUME 9.1 fL (9.0-12.2); MONOCYTES % (AUTO) 5 % (0-12); NEUTROPHILS % (AUTO) 63 % (42-75); PLATELET COUNT 538 10^3/uL (130-400); WHITE BLOOD COUNT 19.2 10^3/uL (4.3-11.0)
[2022-05-20 09:33] LABS: ALBUMIN 3.8 GM/DL (3.2-4.5); POTASSIUM 5.1 MMOL/L (3.6-5.0)
[2022-05-20 09:36] LABS: TOTAL PROTEIN 8.1 GM/DL (6.4-8.2)
[2022-05-20 09:37] LABS: BILIRUBIN,URINE NEGATIVE (NEGATIVE); CLARITY,URINE CLOUDY; COLOR,URINE YELLOW; GLUCOSE, URINE (UA) 3+ (NEGATIVE); KETONES,URINE NEGATIVE (NEGATIVE); LEUKOCYTE ESTERASE ,URINE 3+ (NEGATIVE); NITRITE,URINE NEGATIVE (NEGATIVE); PH,URINE 6.5 (5-9); PROTEIN,URINE 2+ (NEGATIVE)
[2022-05-20 09:37] LABS: BILIRUBIN,TOTAL 0.2 MG/DL (0.1-1.0)
[2022-05-20 09:40] LABS: CREATININE SERUM 1.82 MG/DL (0.60-1.30)
[2022-05-20 09:42] LABS: BACTERIA,URINE LARGE /HPF; RBC,URINE 25-50 /HPF; WBC,URINE TNTC /HPF
[2022-05-20 09:42] LABS: MAGNESIUM 2.5 MG/DL (1.6-2.4)
[2022-05-20 09:48] LABS: ABG OXYGEN SATURATION 99 % (94-100); ABG PCO2 67 MMHG (35-45); ABG PO2 115 MMHG (79-93); ABG TCO2 36.3 MMOL/L (21.0-31.0)
[2022-05-20 09:50] LABS: ABG PH 7.32 (7.37-7.43); PATIENT TEMP 36.3; VENTILATOR NO
--- NOTE | 2022-05-20 09:51 | Diagnostic Imaging Report ---
INDICATION: Shortness of breath and hypoxia. COMPARISON: May 08, 2022. FINDING: The patient is status post prior sternotomy. The heart size is unchanged. The right lung is clear. There is persistent elevation of the left hemidiaphragm with some ongoing left basilar airspace opacification although the overall aeration at the left lung base does appear to be improved compared to the prior exam. The central pulmonary vascularity is unremarkable. There is no acute osseous abnormality. IMPRESSION: Previous operative changes of sternotomy and bypass grafting. The heart size is stable without current evidence of edema or failure. The right lung is clear. There is persistent elevation of the left hemidiaphragm with persistent but improved left basilar airspace consolidation, likely reflecting atelectasis. Dictated by: Dictated on workstation # [id number]
[2022-05-20 09:52] LABS: INR 1.1 (0.8-1.4); PROTHROMBIN TIME PATIENT 14.3 SEC (12.2-14.7)
[2022-05-20 09:53] LABS: EOSINOPHILS % (MANUAL) 1 %; HYPOCHROMASIA SLIGHT; LYMPHOCYTES % (MANUAL) 26 %; MONOCYTES % (MANUAL) 8 %; NEUTROPHILS % (MANUAL) 65 %
[2022-05-20] MEDS ORDERED: RT-ALBUTEROL HFA 8.5 GM INHALER IH STA (10:02)
--- NOTE | 2022-05-20 10:02 | Diagnostic Imaging Report ---
PROCEDURE: CT head without contrast. TECHNIQUE: Multiple contiguous axial images were obtained through the brain without the use of intravenous contrast. Auto Exposure Controls were utilized during the CT exam to meet ALARA standards for radiation dose reduction. INDICATION: Unresponsiveness. Evaluate for stroke. COMPARISON: CT head performed on May 08, 2022. FINDINGS: Age-related global volume loss and background microvascular changes appear stable. There is no new territorial loss of vu-white differentiation evident or findings of vasogenic edema. There are no findings of acute hemorrhage. There is no mass effect. There is no hydrocephalus. There is no extra-axial collection. The basilar cisterns are patent. The posterior fossa demonstrates no acute process. The mastoids are clear. The paranasal sinuses are clear. The orbital contents are unremarkable. There is no acute calvarial abnormality. IMPRESSION: Age-related volume loss with background microvascular changes within the white matter. These findings appear stable from the prior exam. No new or acute intracranial abnormality is demonstrated. Dictated by: Dictated on workstation # [id number]
[2022-05-20 10:03] LABS: FREE T4 (FREE THYROXINE) 0.8 NG/DL (0.70-1.48)
[2022-05-20] MEDS ORDERED: NS IV 1000 ML 1,000 ML IV SCH (10:15)
[2022-05-20] MEDS ORDERED: VANCOMYCIN INJECTION 1,000 MG in NS (IVPB) 250 ML IV ONE (10:15)
--- NOTE | 2022-05-20 10:49 | ED General ---
General Chief Complaint: General Problems/Pain Stated Complaint: UNRESPONSIVE Nursing Triage Note: PT TO [facility] BY [facility] WITH C/O AMS, NOT RESPONDING NORMALLY WOULD AND POSS A UTI. Source of Information: EMS, Shelter Records, Old Records Exam Limitations: Physical Impairments History of Present Illness Date Seen by Provider: May 20, 2022 Time Seen by Provider: 09:09 Initial Comments This 82-year-old woman presents to the emergency room via EMS from the [facility] for reasons of altered mental status and hypotension. According to group home staff, she is being treated for urinary tract infection with Bactrim and ceftriaxone. Yesterday she was sleeping most of the day and had trouble keeping her head up. Today she is not responding to verbal and tactile stimulation for them. She was arousable at around 0530 but had a decline by 0800. Blood pressure for EMS on arrival was 70/40. Patient has a history of severe sepsis and urinary tract infections. 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 Patient is minimally arousable for us on arrival. She will move her facial muscles when touched but does not respond to voice. She is not exhibiting any spontaneous extremity movement. She is independently breathing but has some obstructive apnea. Oxygen saturation is maintained on nasal cannula. Urine culture from her last admission to this facility May 08 was reviewed and demonstrated MRSA. A follow-up urine culture performed at [facility] was obtained on May 16 and demonstrated no growth. Patient has a confirmed DNR status. Allergies and Home Medications Allergies Coded Allergies: Fish Containing Products (Unverified Allergy, Unknown, 03/07/21) iodine (Unverified Allergy, Unknown, 03/07/21) peanut (Unverified Allergy, Unknown, 03/07/21) shrimp (Verified Allergy, Unknown, 04/30/19) Uncoded Allergies: POPCORN (Allergy, Unknown, 03/07/21) Patient Home Medication List Home Medication List Reviewed: Yes Acetaminophen (Acetaminophen 8 Hour) 650 Mg Tablet.er, 650 MG PO Q8H PRN for PAIN-BREAKTHROUGH, (Reported) Entered as Reported by: PEYTON DESIR on 05/19/21 1149 Albuterol Sulfate (Proair Hfa) 1 Puff Puff, 2 PUFF IH Q4H PRN for SHORTNESS OF BREATH, (Reported) Entered as Reported by: BRITTANEY HEBERT on 05/04/21 1436 Amino Acids/Protein Hydrolys (Pro-Stat Awc Liquid) 887 Ml Liquid, 30 ML PO BID, (Reported) Entered as Reported by: PEYTON DESIR on 02/08/22 1423 Ascorbate Calcium (Vitamin C) 500 Mg Tablet, 500 MG PO DAILY, (Reported) Entered as Reported by: PEYTON DESIR on 05/19/21 1149 Aspirin (Aspirin) 81 Mg Tab.chew, 81 MG PO DAILY, (Reported) Entered as Reported by: PEYTON DESIR on 05/08/22 1555 Atorvastatin Calcium (Atorvastatin Calcium) 20 Mg Tablet, 20 MG PO 1800, (Reported) Entered as Reported by: BRITTANEY HEBERT on 05/04/21 1436 Baclofen (Baclofen) 10 Mg Tablet, 10 MG PO TID PRN for MUSCLE SPASMS, (Reported) Entered as Reported by: PEYTON DESIR on 05/08/22 1555 Bisacodyl (Bisacodyl) 5 Mg Tablet.dr, 10 MG PO DAILY PRN for CONSTIPATION-4TH LINE, (Reported) Entered as Reported by: PEYTON DESIR on 05/08/22 1602 Cetirizine HCl (Zyrtec) 10 Mg Tablet, 5 MG PO 1800, (Reported) Entered as Reported by: SLIME AREVALO on 06/05/19 0917 Cholecalciferol (Vitamin D3) (Vitamin D3) 25 Mcg Capsule, 50 MCG PO DAILY, (Reported) Entered as Reported by: PEYTON DESIR on 05/19/21 1149 Cyanocobalamin (Vitamin B-12) (B-12) 500 Mcg Tablet, 500 MCG PO Q48H, (Reported) Entered as Reported by: BRITTANEY HEBERT on 05/04/21 1436 Dimethicone (Remedy Nutrashield) 118 Ml Cream.ml., 1 APPLIC TP BID, (Reported) Entered as Reported by: PEYTON DESIR on 02/08/22 1423 Empagliflozin (Jardiance) 25 Mg Tablet, 25 MG PO DAILY, (Reported) Entered as Reported by: BRITTANEY HEBERT on 05/04/21 1436 Estradiol (Estrace Cream) 42.5 Gm Cream.appl, 1 GM VG MON,WE,FR @HS, (Reported) Entered as Reported by: BRITTANEY HEBERT on 05/04/21 1436 Ferrous Sulfate (Ferrous Sulfate) 325 Mg (65 Mg Iron) Tablet.dr, 325 MG PO DAILY , (Reported) Entered as Reported by: PEYTON DESIR on 05/08/22 1555 Fluticasone Propionate (Fluticasone Propionate) 16 Gm [place].susp, 1 SPRAY NSEACH DAILY, (Reported) Entered as Reported by: SLIME AREVALO on 05/01/19 08 Furosemide (Furosemide) 20 Mg Tablet, 20 MG PO DAILY, (Reported) Entered as Reported by: PEYTON DESIR on 05/08/22 155 Gabapentin (Gabapentin) 100 Mg Capsule, 200 MG PO 1800, (Reported) Entered as Reported by: SLIME AREVALO on 05/01/19 08 Hydrocodone/Acetaminophen (Hydrocodone-Acetamin 5-325 mg) 1 Each Tablet, 1-2 EACH PO Q4H PRN for PAIN-MODERATE (5-7), (Reported) Entered as Reported by: BRITTANEY HEBERT on 05/04/21 1436 Isosorbide Mononitrate (Isosorbide Mononitrate ER) 30 Mg Tab.er.24h, 30 MG PO DAILY, (Reported) Entered as Reported by: PEYTON DESIR on 02/08/22 1422 Ketoconazole (Ketoconazole) 15 Gm Cream..g., 1 APPLIC TP BID PRN for REDNESS, (Reported) Entered as Reported by: PEYTON DESIR on 02/08/22 1423 L. Acidophilus/L.bulgaricus (Lactobacillus 1 Million Cfu Tb) 1 Each Tablet, 1 EACH PO 0600,1400, (Reported) Entered as Reported by: BRITTANEY HEBERT on 05/04/21 1436 Levothyroxine Sodium (Synthroid) 25 Mcg Tablet, 25 MCG PO DAILY, (Reported) Entered as Reported by: SLIME AREVALO on 05/01/19 08 Lisinopril (Lisinopril) 5 Mg Tablet, 5 MG PO DAILY, (Reported) Entered as Reported by: PEYTON DESIR on 02/08/22 1423 Lorazepam (Ativan) 0.5 Mg Tablet, 0.5 MG PO DAILY, (Reported) Entered as Reported by: PEYTON DESIR on 05/19/21 1149 Magnesium Hydroxide (Milk of Magnesia) 400 Mg/5 Ml Oral.susp, 30 ML PO DAILY PRN for CONSTIPATION-7TH LINE, (Reported) Entered as Reported by: SLIME AREVALO on 05/01/19 0831 Magnesium Oxide (Magox 400) 400 Mg Tablet, 400 MG PO DAILY, (Reported) Entered as Reported by: SLIME AREVALO on 05/01/19 0831 Menthol (Biofreeze) 118 Ml Gel..ml., 1 APPLIC TP Q6H PRN for SPASMS, (Reported) Entered as Reported by: SLIME AREVALO on 06/05/19 0917 Methyl Salicylate/Menth/Camph (Muscle Rub Ultra Str Cream) 114 Gm Cream..g., 1 APPLIC TP Q6H PRN for PAIN-BREAKTHROUGH, (Reported) Entered as Reported by: PEYTON DESIR on 05/19/21 1149 Metoprolol Succinate (Metoprolol Succinate) 25 Mg Tab.er.24h, 25 MG PO DAILY, (Reported) Entered as Reported by: BRITTANEY HEBERT on 05/04/21 1436 Miconazole Nitrate (Remedy Antifungal) 85 Gm Powder, 1 APPLIC TP Q8H PRN for PREVENTION, (Reported) Entered as Reported by: PEYTON DESIR on 05/19/21 1149 Nystatin (Nystatin) 100,000 Unit/Gram Oint...g., 1 APPLIC TOP BID, (Reported) Entered as Reported by: PEYTON DESIR on 05/08/22 1555 Ondansetron HCl (Ondansetron HCl) 4 Mg Tablet, 4 MG PO Q8H PRN for NAUSEA/VOMITING-1ST LINE, (Reported) Entered as Reported by: PEYTON DESIR on 01/03/22 1420 Oxybutynin Chloride (Oxybutynin Chloride ER) 10 Mg Tab.er.24, 10 MG PO DAILY, (Reported) Entered as Reported by: BRITTANEY HEBERT on 05/04/21 1436 Phenol (Chloraseptic) 20 Ml [place], 2 SPRAYS MM Q4H PRN for PAIN-BREAKTHROUGH, (Reported) Entered as Reported by: PEYTON DESIR on 01/03/22 1420 Polyethylene Glycol 3350 (Polyethylene Glycol 3350) 17 Gm Powd.pack, 17 GM PO Q12H PRN for CONSTIPATION-2ND LINE, (Reported) Entered as Reported by: BRITTANEY HEBERT on 05/04/21 1436 Sennosides/Docusate Sodium (Senna S Tablet) 1 Each Tablet, 3 EA PO 1800, (Reported) Entered as Reported by: SLIME AREVALO on 05/01/19 0831 Sertraline HCl (Sertraline HCl) 50 Mg Tablet, 50 MG PO 1800, (Reported) Entered as Reported by: SLIME AREVALO on 05/01/19 0831 Sulfamethoxazole/Trimethoprim (Bactrim Ds Tablet) 1 Each Tablet, 1 EACH PO BID Prescribed by: JACQUELINE MCDANIEL on 05/14/22 1228 Trazodone HCl (Trazodone HCl) 100 Mg Tablet, 100 MG PO 1800, (Reported) Entered as Reported by: SLIME AREVALO on 05/01/19 0831 Trolamine Salicylate/Aloe Vera (Aspercreme 10% Cream) 35.4 Gm Cream..g., 1 APPLIC TP Q8H PRN for PAIN-BREAKTHROUGH, (Reported) Entered as Reported by: BRITTANEY HEBERT on 05/04/21 1436 Ubidecarenone (Co Q-10) 50 Mg Capsule, 50 MG PO DAILY, (Reported) Entered as Reported by: PEYTON DESIR on 01/03/22 1420 Discontinued Medications Cephalexin (Cephalexin) 500 Mg Capsule, 500 MG PO DAILY, (Reported) Entered as Reported by: PEYTON DESIR on 05/08/22 1555 Review of Systems Review of Systems Constitutional: see HPI EENTM: no symptoms reported Respiratory: see HPI Cardiovascular: see HPI Gastrointestinal: see HPI Genitourinary: see HPI : No Musculoskeletal: no symptoms reported Skin: no symptoms reported Psychiatric/Neurological: See HPI Hematologic/Lymphatic: No Symptoms Reported Immunological/Allergic: no symptoms reported Past Idjakkk-Vtdmzt-Pbjyth Hx Patient Social History Tobacco Use?: No Use of E-Cig and/or Vaping dev: No Substance use?: No Alcohol Use?: No Pt feels they are or have been: No Immunizations Up To Date First/Initial COVID19 Vaccinat: 12/08/20 Second COVID19 Vaccination Eric: 12/29/20 Third COVID19 Vaccination Date: 12/08/20 Seasonal Allergies Seasonal Allergies: No Past Medical History Surgery/Hospitalization HX: diabetic, chronic UTI, COVID, ANEMIA, ANXIETY, RLS, INSOMNIA, CHF COLOSTOMY, UROSTOMY, Surgeries: Yes (BYPASS GRAFT, FOOT MANIPULATION, FLEXIBLE DIAG CYSTOSCOPY, colostomy) Bowel Surgery, CABG, Hysterectomy Respiratory: Yes (COPD) COPD Currently Using CPAP: No Currently Using BIPAP: No Cardiac: Yes Coronary Artery Disease, Heart Attack, 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 Neurological: No : No 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 Disorders: No 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 Sexually Transmitted Disease: No HIV/AIDS: No Genitourinary: Yes Renal Failure Gastrointestinal: Yes (colon mass, COLOSTOMY) Diverticulosis Musculoskeletal: Yes Arthritis Endocrine: Yes Diabetes, Insulin dep HEENT: Yes (WEARS GLASSES) Loss of Vision: Denies Cancer: No Psychosocial: Yes Sleep Difficulties, Anxiety, Depression Integumentary: No Blood Disorders: No Adverse Reaction/Blood Tranf: No (N/A) Family Medical History Alzheimer's disease Cardiovascular disease 19 FATHER 19 MOTHER Diabetes mellitus 19 MOTHER Heart Disease, Diabetes Physical Exam-Suspected Sepsis Physical Exam Vital Signs Vital Signs - First Documented 05/20/22 05/20/22 05/20/22 05/20/22 09:08 11:25 12:00 12:10 Temp 36.3 Pulse 100 Resp 14 B/P (MAP) 85/50 (62) Pulse Ox 98 O2 Delivery NIV Bilevel O2 Flow Rate 30.00 FiO2 30 Capillary Refill : Blood Pressure Mean: 62 Height, Weight, BMI Height: 0'60.00" Weight: 150lbs. 3.2oz. [id number]; 19.57 BMI Method:Stated General Appearance: No Apparent Distress, WD/WN, Other (Minimally responsive) HEENT: PERRL/EOMI, Normal ENT Inspection, Pharynx Normal Neck: Normal Inspection; No JVD Respiratory: Lungs Clear, Normal Breath Sounds, No Accessory Muscle Use, Other (Sonogram breathing with apparent brief episodes of obstructive apnea) Cardiovascular: Regular Rate, Rhythm, No Edema, No Murmur Gastrointestinal: Non Tender, Soft; No Distended Extremity: Normal Inspection, No Pedal Edema Neurologic/Psychiatric: Other (Minimally responsive with no spontaneous movements or interactions) Skin: normal color, warm/dry Focused Exam Sepsis Stage: Sepsis Possible Source: Genitouriary Lactate Level 05/20/22 09:13: Lactic Acid Level 1.32 05/20/22 12:44: Lactic Acid Level 0.57 Time of Focused Exam: 10:41 Respiratory: Lungs Clear Cardiovascular: Regular Rate, Rhythm, Other (mild edema) Capillary Refill: Less Than 3 Seconds Skin: normal color, warm/dry Lactic Acid Level Within 3hrs of presentation: Admin fluids, Admin 30ml/kg IBW due to BMI>30, Admin ABX, Blood cultures prior to ABX's, Focus exam, Lactate level Progress/Results/Core Measures Suspected Sepsis SIRS Temperature: Pulse: 100 Respiratory Rate: 14 Laboratory Tests 05/20/22 09:13: White Blood Count 19.2H Blood Pressure 85 /50 Mean: 62 05/20/22 09:13: Lactic Acid Level 1.32 05/20/22 12:44: Lactic Acid Level 0.57 Laboratory Tests 05/20/22 09:13: Creatinine 1.82H, INR Comment 1.1, Platelet Count 538H, Total Bilirubin 0.2 Results/Orders Lab Results Laboratory Tests Test 05/20/22 09:13 05/20/22 09:22 05/20/22 09:43 05/20/22 12:44 Range/Units White Blood Count 19.2 H 4.3-11.0 10^3/uL Red Blood Count 3.76 L 3.80-5.11 10^6/uL Hemoglobin 10.3 L 11.5-16.0 g/dL Hematocrit 34 L 35-52 % Mean Corpuscular Volume 91 80-99 fL Mean Corpuscular Hemoglobin 27 25-34 pg Mean Corpuscular Hemoglobin Concent 30 L 32-36 g/dL Red Cell Distribution Width 14.8 H 10.0-14.5 % Platelet Count 538 H 130-400 10^3/uL Mean Platelet Volume 9.1 9.0-12.2 fL Immature Granulocyte % (Auto) 1 % Neutrophils (%) (Auto) 63 42-75 % Lymphocytes (%) (Auto) 30 12-44 % Monocytes (%) (Auto) 5 0-12 % Eosinophils (%) (Auto) 1 0-10 % Basophils (%) (Auto) 1 0-10 % Neutrophils # (Auto) 12.0 H 1.8-7.8 10^3/uL Lymphocytes # (Auto) 5.7 H 1.0-4.0 10^3/uL Monocytes # (Auto) 1.0 0.0-1.0 10^3/uL Eosinophils # (Auto) 0.2 0.0-0.3 10^3/uL Basophils # (Auto) 0.1 0.0-0.1 10^3/uL Immature Granulocyte # (Auto) 0.1 0.0-0.1 10^3/uL Neutrophils % (Manual) 65 % Lymphocytes % (Manual) 26 % Monocytes % (Manual) 8 % Eosinophils % (Manual) 1 % Hypochromasia SLIGHT Prothrombin Time 14.3 12.2-14.7 SEC INR Comment 1.1 0.8-1.4 Activated Partial Thromboplast Time 26 24-35 SEC Sodium Level 137 135-145 MMOL/L Potassium Level 5.1 H 3.6-5.0 MMOL/L Chloride Level 96 L 98-107 MMOL/L Carbon Dioxide Level 29 21-32 MMOL/L Anion Gap 12 5-14 MMOL/L Blood Urea Nitrogen 50 H 7-18 MG/DL Creatinine 1.82 H 0.60-1.30 MG/DL Estimat Glomerular Filtration Rate 28 BUN/Creatinine Ratio 27 Glucose Level 164 H 70-105 MG/DL Lactic Acid Level 1.32 0.57 0.50-2.00 MMOL/L Calcium Level 10.0 8.5-10.1 MG/DL Corrected Calcium 10.2 H 8.5-10.1 MG/DL Magnesium Level 2.5 H 1.6-2.4 MG/DL Total Bilirubin 0.2 0.1-1.0 MG/DL Aspartate Amino Transf (AST/SGOT) 15 5-34 U/L Alanine Aminotransferase (ALT/SGPT) 7 0-55 U/L Alkaline Phosphatase 64 40-136 U/L C-Reactive Protein High Sensitivity 1.22 H 0.00-0.50 MG/DL Total Protein 8.1 6.4-8.2 GM/DL Albumin 3.8 3.2-4.5 GM/DL Procalcitonin 0.04 <0.10 NG/ML Thyroid Stimulating Hormone (TSH) 1.59 0.35-4.94 UIU/ML Free Thyroxine 0.80 0.70-1.48 NG/DL Urine Color YELLOW Urine Clarity CLOUDY Urine pH 6.5 5-9 Urine Specific [place] 1.020 1.016-1.022 Urine Protein 2+ H NEGATIVE Urine Glucose (UA) 3+ H NEGATIVE Urine Ketones NEGATIVE NEGATIVE Urine Nitrite NEGATIVE NEGATIVE Urine Bilirubin NEGATIVE NEGATIVE Urine Urobilinogen 0.2 < = 1.0 MG/DL Urine Leukocyte Esterase 3+ H NEGATIVE Urine RBC (Auto) 2+ H NEGATIVE Urine RBC 25-50 H /HPF Urine WBC TNTC H /HPF Urine Crystals NONE /LPF Urine Bacteria LARGE H /HPF Urine Casts NONE /LPF Urine Mucus NEGATIVE /LPF Urine Culture Indicated YES Blood Gas Puncture Site NA Blood Gas Patient Temperature 36.3 Arterial Blood pH 7.32 *L 7.37-7.43 Arterial Blood Partial Pressure CO2 67 H 35-45 MMHG Arterial Blood Partial Pressure O2 115 H 79-93 MMHG Arterial Blood HCO3 34 H 23-27 MMOL/L Arterial Blood Total CO2 36.3 H 21.0-31.0 MMOL/L Arterial Blood Oxygen Saturation 99 94-100 % Arterial Blood Base Excess 8.0 H -2.5-2.5 MMOL/L Vaughn Test NA Blood Gas Ventilator Setting NO Blood Gas Inspired Oxygen NA My Orders Orders - ANNITA ARAUZ MD Ct Head Wo (05/20/22 09:12) Chest 1 View, Ap/Pa Only (05/20/22 09:12) Cbc With Automated Diff (05/20/22 09:14) Comprehensive Metabolic Panel (05/20/22 09:14) Hs C Reactive Protein (05/20/22 09:14) Magnesium (05/20/22 09:14) Ua Culture If Indicated (05/20/22 09:14) Ed Iv/Invasive Line Start (05/20/22 09:14) Lactated Ringers (Lr 1000 Ml Iv Solution (05/20/22 09:15) Fecal Occult Bedside (05/20/22 09:14) Ekg Tracing (05/20/22 09:14) Monitor-Rhythm Ecg Trace Only (05/20/22 09:14) Guo Cath (05/20/22 09:14) Arterial Blood Gas (05/20/22 09:17) Thyroid Stimulating Hormone (05/20/22 09:19) Free T4 (Free Thyroxine) (05/20/22 09:19) Manual Differential (05/20/22 09:13) Blood Culture (05/20/22 09:33) Sputum Culture (05/20/22 09:33) Protime With Inr (05/20/22 09:33) Partial Thromboplastin Time (05/20/22 09:33) Vital Signs Adult Sepsis Patie Q15M (05/20/22 09:33) O2 (05/20/22 09:33) Remove Rings In Anticipation O (05/20/22 09:33) Lactic Acid Analyzer (05/20/22 09:33) Urine Culture (05/20/22 09:22) Bipap (Bilevel) Set Up (05/20/22 10:02) Albuterol Inhaler (Albuterol) (05/20/22 10:02) Ns Iv 1000 Ml (Sodium Chloride 0.9%) (05/20/22 10:15) Vancomycin Injection (Vancomycin Injecti (05/20/22 10:15) Code/Resuscitation (05/20/22 10:51) Procalcitonin (Pct) (05/20/22 11:03) Albuterol Pre-Mix Nebs (Rt) (Proventil (05/20/22 11:05) Medications Given in ED Current Medications Medications Dose Ordered Sig/Geeta Route Start Time Stop Time Status Last Admin Dose Admin Lactated Ringer's 1,000 ml @ 0 mls/hr Q0M ONCE IV 05/20/22 09:15 05/20/22 09:16 DC 05/20/22 09:24 1,000 MLS/HR Vancomycin HCl 1000 mg/Sodium Chloride 250 ml @ 250 mls/hr ONCE ONCE IV 05/20/22 10:15 05/20/22 11:14 DC 05/20/22 10:29 250 MLS/HR Vital Signs/I&O 05/20/22 05/20/22 05/20/22 05/20/22 09:08 11:25 11:33 12:00 Temp 36.3 36.3 Pulse 100 66 65 66 Resp 14 20 19 23 B/P (MAP) 85/50 (62) 125/50 131/54 Pulse Ox 98 98 95 O2 Delivery NIV Bilevel O2 Flow Rate 30.00 30.00 05/20/22 05/20/22 05/20/22 05/20/22 12:10 13:00 13:00 14:00 Pulse 63 67 67 Resp 16 10 B/P (MAP) 115/52 153/61 Pulse Ox 100 98 100 O2 Delivery NIV Bilevel NIV Bilevel Nasal Cannula O2 Flow Rate 30.00 2.00 FiO2 30 05/20/22 05/20/22 05/20/22 05/20/22 15:00 16:00 16:05 16:06 Temp 35.7 Pulse 66 65 Resp 13 10 B/P (MAP) 148/59 140/53 Pulse Ox 99 100 100 O2 Delivery Nasal Cannula Nasal Cannula Nasal Cannula O2 Flow Rate 2.00 2.00 2.00 05/20/22 05/20/22 05/20/22 05/20/22 17:00 18:00 19:30 19:31 Temp 35.9 Pulse 100 67 Resp 24 12 B/P (MAP) 127/82 166/64 Pulse Ox 97 94 O2 Delivery Nasal Cannula Nasal Cannula Room Air O2 Flow Rate 2.00 2.00 05/20/22 19:43 Temp 35.9 Capillary Refill : Blood Pressure Mean: 62 Point of Care Testing Fecal Occult: Negative Progress Note #1: Time: 10:47 Progress Note Patient still has borderline blood pressures after receiving 1 L of normal saline at approximately 0.5 liter LR. Due to her mild hyperkalemia, we are switching back to normal saline. If she does not respond to another 500 mL bolus, pressors may be started. Vancomycin is being given based on her prior cultures obtained within the last couple of weeks. It appears her hypotension is more likely related to volume status than sepsis as her CRP and lactic acid are both low. We would expect these values to be elevated if she were in septic shock. PCO2 was elevated on ABG suggesting she has some CO2 narcosis as well. BiPAP has been initiated along with albuterol treatment. Case has been discussed with Dr. Mcdaniel who is agreeable to admission. CT of the head was unremarkable. Because of her altered mental status is likely multifactorial. Medication effect including adverse effect of baclofen and gabapentin, hypotension from hypovolemia, as well as hypercarbia and possible presence of infection may all be contributing. Progress Note #2: Time: 11:18 Progress Note Patient remained hypotensive after 30 mL/kg. She has clear lung sounds and is showing no signs of pulmonary edema by exam or x-ray at this time. We will finish her current liter of normal saline. Beyond that we will not administer any further boluses but will start Levophed per the sepsis order set. Dr. Reyes has been consulted for central line placement. I obtained verbal consent from patient's POA and sister Kristy Rushing for central line placement. Progress Note #3: Time: 11:39 Progress Note Systolic blood pressure is now 125. Patient is still not responding. ECG Initial ECG Impression Date: May 20, 2022 Initial ECG Impression Time: 09:28 Initial ECG Rate: 98 Comment Sinus rhythm with no ST elevation or depression. No abnormal intervals or axis deviation. Diagnostic Imaging Diagonstic Imaging: Xray Plain Films/CT/US/NM/MRI: chest Comments NAME: [facility]ARINEL [facility] REC#: [id number] PT STATUS: REG ER : 1940 PHYSICIAN: ANNITA ARAUZ MD ADMIT DATE: 05/20/22/ER Signed Date of Exam:05/20/22 CHEST 1 VIEW, AP/PA ONLY INDICATION: Shortness of breath and hypoxia. COMPARISON: May 08, 2022. FINDING: The patient is status post prior sternotomy. The heart size is unchanged. The right lung is clear. There is persistent elevation of the left hemidiaphragm with some ongoing left basilar airspace opacification although the overall aeration at the left lung base does appear to be improved compared to the prior exam. The central pulmonary vascularity is unremarkable. There is no acute osseous abnormality. IMPRESSION: Previous operative changes of sternotomy and bypass grafting. The heart size is stable without current evidence of edema or failure. The right lung is clear. There is persistent elevation of the left hemidiaphragm with persistent but improved left basilar airspace consolidation, likely reflecting atelectasis. Dictated by: Dictated on workstation # [id number] Dict: 05/20/22 0948 Trans: 05/20/22 1013 [id number] Interpreted by: PAUL COTO MD Electronically signed by: PAUL COTO MD 05/20/22 1013 Diagonstic Imaging: CT Plain Films/CT/US/NM/MRI: head Comments NAME: DARINEL [facility]TE [facility] REC#: [id number] PT STATUS: REG ER : 1940 PHYSICIAN: ANNITA ARAUZ MD ADMIT DATE: 05/20/22/ER Signed Date of Exam:05/20/22 CT HEAD WO PROCEDURE: CT head without contrast. TECHNIQUE: Multiple contiguous axial images were obtained through the brain without the use of intravenous contrast. Auto Exposure Controls were utilized during the CT exam to meet ALARA standards for radiation dose reduction. INDICATION: Unresponsiveness. Evaluate for stroke. COMPARISON: CT head performed on May 08, 2022. FINDINGS: Age-related global volume loss and background microvascular changes appear stable. There is no new territorial loss of vu-white differentiation evident or findings of vasogenic edema. There are no findings of acute hemorrhage. There is no mass effect. There is no hydrocephalus. There is no extra-axial collection. The basilar cisterns are patent. The posterior fossa demonstrates no acute process. The mastoids are clear. The paranasal sinuses are clear. The orbital contents are unremarkable. There is no acute calvarial abnormality. IMPRESSION: Age-related volume loss with background microvascular changes within the white matter. These findings appear stable from the prior exam. No new or acute intracranial abnormality is demonstrated. Dictated by: Dictated on workstation # [id number] Dict: 05/20/22 0958 Trans: 05/20/22 1013 [id number] Interpreted by: PAUL COTO MD Electronically signed by: PAUL COTO MD 05/20/22 1013 Departure Communication (Admissions) Time/Spoke to Admitting Phy: 10:40 Dr. Mcdaniel Time/Spoke to Consulting Phy: 10:55 Dr. Reyes Impression Primary Impression: Sepsis Qualified Codes: A41.02 - Sepsis due to methicillin resistant Staphylococcus aureus; R65.20 - Severe sepsis without septic shock; N17.9 - Acute kidney failure, unspecified Additional Impressions: Hypotension Qualified Codes: I95.89 - Other hypotension; E86.1 - Hypovolemia Acute kidney injury Altered mental status Qualified Codes: R41.82 - Altered mental status, unspecified Urinary tract infection Qualified Codes: N39.0 - Urinary tract infection, site not specified; R31.9 - Hematuria, unspecified Hypovolemia Hypercapnemia Disposition: 09 ADMITTED INPATIENT Condition: Stable Admissions Decision to Admit Reason: Admit from ER (General) Decision to Admit/Date: May 20, 2022 Time/Decision to Admit Time: 10:40 Departure-Patient Inst. Referrals: MACEY CAO MD (PCP/Family) Primary Care Physician Copy Copies To 1: MACEY CAO MD, JOSHUA T MD May 20, 2022 10:48
[2022-05-20] MEDS ORDERED: RT-ALBUTEROL SULF 2.5 MG/3 ML PRE-MIX VIAL ONE (11:05)
[2022-05-20 11:25] VITALS: BP 110/52
[2022-05-20] MEDS: NS IV 1000 ML 1,000 ML IV SCH ×2 (12:37→19:28)
[2022-05-20] MEDS: cefTRIAXone 1 GM IV (PRE-MIX) 50 ML IV SCH (12:37)
--- NOTE | 2022-05-20 12:51 | Tele-ICU Progress Note ---
Subjective Date Seen by a Provider: May 20, 2022 Time Seen by a Provider: 12:46 Subjective/Events-last exam Available chart/vitals/labs/images reviewed. Video assessment done using telemetry ICU camera, rest of exam as per RN. Discussion with the RN, exam as per RN. HPI She is a 82-year-old female resident of a shelter who was recently hospitalized for urosepsis and discharged. Today she is referred to the emergency room because she had a decrease in her mental status at shelter. In the emergency room she is found to have a low blood pressure along with acute kidney injury. She is markedly somnolent and unable to give any history. I have reviewed her history and details with with the ED physician. I made a video visit and discussed with the CHIEF PSYCHOLOGIST. During the last visit she had blood culture positive for MRSA and urine culture positive for Proteus. ABG's revealed respiratory acidosis hence placed on bipap. In the emergency room she is given vancomycin and Rocephin. Also IV fluids given 30 mL/kg. Now her blood pressure improved to systolic 130 in the ICU.She does have a urostomy bag and colostomy bag and the etiology of which is not known to me at this time. Sepsis Event Evaluation Height, Weight, BMI Height: 0'60.00" Weight: 150lbs. 3.2oz. 68.603878ml; 19.57 BMI Method:Stated Focused Exam Lactate Level 05/20/22 09:13: Lactic Acid Level 1.32 Time of Focused Exam: 10:41 Lactic Acid Level Laboratory Tests Test 05/20/22 09:13 Lactic Acid Level 1.32 MMOL/L (0.50-2.00) Exam Exam Patient acknowledged, consented, and participated in this virtual visit which was conducted using real time audio/video Vital Signs Date Time Temp Pulse Resp B/P (MAP) Pulse Ox O2 Delivery O2 Flow Rate FiO2 05/20/22 11:33 36.3 65 19 125/50 98 05/20/22 11:25 66 20 98 30.00 05/20/22 09:08 36.3 100 14 85/50 (62) Height & Weight Height: 0'60.00" Weight: 150lbs. 3.2oz. 68.025683fj; 19.57 BMI Method:Stated General Appearance: Moderate Distress Respiratory: Lungs Clear Cardiovascular: Regular Rate, Rhythm, Other (mild edema) Capillary Refill: Less Than 3 Seconds Other comments PE PER RN. Results Lab Laboratory Tests 05/20/22 09:13 Assessment/Plan Assessment/Plan 1. Hypotension probably due to severe sepsis. 2. Recurrent urinary tract infection 3. Decreased mental status secondary to metabolic encephalopathy 4. Hypoxic respiratory failure requiring BiPAP ventilation. Recommendations 1. Continue hydration with IV fluids 2. Agree with empiric antibiotic choice of Rocephin and vancomycin and await for cultures and de-escalate as per the cultures. 3. Continue BiPAP ventilation and wean oxygen as tolerated. 4. DVT prophylaxis and ulcer prophylaxis. 5. Video visit made and reviewed with the CHIEF PSYCHOLOGIST. 6. Collaboration of the care along with the bedside physician. Critical Care: Critically Ill Patient Time spent with patient (mins): 25 JIMENA OLSEN MD May 20, 2022 12:51
--- NOTE | 2022-05-20 13:58 | Consultation - Surgery ---
History of Present Illness History of Present Illness Patient Consulted On(emir/time) 05/20/22 13:54 Time Seen by Provider: 12:00 History of Present Illness Surgery asked to consult for Hypotension and Venous insufficiency. HPI per ED: This 82-year-old woman presents to the emergency room via EMS from the [facility] for reasons of altered mental status and hypotension. According to [facility] staff, she is being treated for urinary tract infection with Bactrim and ceftriaxone. Yesterday she was sleeping most of the day and had trouble keeping her head up. Today she is not responding to verbal and tactile stimulation for them. She was arousable at around 0530 but had a decline by 0800. Blood pressure for EMS on arrival was 70/40. Patient has a history of severe sepsis and urinary tract infections. 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 Patient is minimally arousable for us on arrival. She will move her facial muscles when touched but does not respond to voice. She is not exhibiting any spontaneous extremity movement. She is independently breathing but has some obstructive apnea. Oxygen saturation is maintained on nasal cannula. Urine culture from her last admission to this facility May 08 was reviewed and demonstrated MRSA. A follow-up urine culture performed at [facility] was obtained on May 16 and demonstrated no growth. Patient has a confirmed DNR status. Pt is non-communicative so all information obtained from chart. Allergies and Home Medications Allergies Coded Allergies: Fish Containing Products (Unverified Allergy, Unknown, 03/07/21) iodine (Unverified Allergy, Unknown, 03/07/21) peanut (Unverified Allergy, Unknown, 03/07/21) shrimp (Verified Allergy, Unknown, 04/30/19) Uncoded Allergies: POPCORN (Allergy, Unknown, 03/07/21) Patient Home Medication List Home Medication List Reviewed: Yes Acetaminophen (Acetaminophen 8 Hour) 650 Mg Tablet.er, 650 MG PO Q8H PRN for PAIN-BREAKTHROUGH, (Reported) Entered as Reported by: PEYTON DESIR on 05/19/21 1149 Albuterol Sulfate (Proair Hfa) 1 Puff Puff, 2 PUFF IH Q4H PRN for SHORTNESS OF BREATH, (Reported) Entered as Reported by: BRITTANEY HEBERT on 05/04/21 1436 Amino Acids/Protein Hydrolys (Pro-Stat Awc Liquid) 887 Ml Liquid, 30 ML PO BID, (Reported) Entered as Reported by: PEYTON DESIR on 02/08/22 1423 Ascorbate Calcium (Vitamin C) 500 Mg Tablet, 500 MG PO DAILY, (Reported) Entered as Reported by: PEYTON DESIR on 05/19/21 1149 Aspirin (Aspirin) 81 Mg Tab.chew, 81 MG PO DAILY, (Reported) Entered as Reported by: PEYTON DESIR on 05/08/22 1555 Atorvastatin Calcium (Atorvastatin Calcium) 20 Mg Tablet, 20 MG PO 1800, (Reported) Entered as Reported by: BRITTANEY HEBERT on 05/04/21 1436 Baclofen (Baclofen) 10 Mg Tablet, 10 MG PO TID PRN for MUSCLE SPASMS, (Reported) Entered as Reported by: PEYTON DESIR on 05/08/22 1555 Bisacodyl (Bisacodyl) 5 Mg Tablet.dr, 10 MG PO DAILY PRN for CONSTIPATION-4TH LINE, (Reported) Entered as Reported by: PEYTON DESIR on 05/08/22 1602 Cetirizine HCl (Zyrtec) 10 Mg Tablet, 5 MG PO 1800, (Reported) Entered as Reported by: SLIME AREVALO on 06/05/19 0917 Cholecalciferol (Vitamin D3) (Vitamin D3) 25 Mcg Capsule, 50 MCG PO DAILY, (Reported) Entered as Reported by: PEYTON DESIR on 05/19/21 1149 Cyanocobalamin (Vitamin B-12) (B-12) 500 Mcg Tablet, 500 MCG PO Q48H, (Reported) Entered as Reported by: BRITTANEY HEBERT on 05/04/21 1436 Dimethicone (Remedy Nutrashield) 118 Ml Cream.ml., 1 APPLIC TP BID, (Reported) Entered as Reported by: PEYTON DESIR on 02/08/22 1423 Empagliflozin (Jardiance) 25 Mg Tablet, 25 MG PO DAILY, (Reported) Entered as Reported by: BRITTANEY HEBERT on 05/04/21 1436 Estradiol (Estrace Cream) 42.5 Gm Cream.appl, 1 GM VG MON,WE,FR @HS, (Reported) Entered as Reported by: BRITTANEY HEBERT on 05/04/21 1436 Ferrous Sulfate (Ferrous Sulfate) 325 Mg (65 Mg Iron) Tablet.dr, 325 MG PO DAILY, (Reported) Entered as Reported by: PEYTON DESIR on 05/08/22 1555 Fluticasone Propionate (Fluticasone Propionate) 16 Gm [place].susp, 1 SPRAY NSEACH DAILY, (Reported) Entered as Reported by: SLIME AREVALO on 05/01/19 08 Furosemide (Furosemide) 20 Mg Tablet, 20 MG PO DAILY, (Reported) Entered as Reported by: PEYTON DESIR on 05/08/22 1555 Gabapentin (Gabapentin) 100 Mg Capsule, 200 MG PO 1800, (Reported) Entered as Reported by: SLIME AREVALO on 05/01/19 08 Hydrocodone/Acetaminophen (Hydrocodone-Acetamin 5-325 mg) 1 Each Tablet, 1-2 EACH PO Q4H PRN for PAIN-MODERATE (5-7), (Reported) Entered as Reported by: BRITTANEY HEBERT on 05/04/21 1436 Isosorbide Mononitrate (Isosorbide Mononitrate ER) 30 Mg Tab.er.24h, 30 MG PO DAILY, (Reported) Entered as Reported by: PEYTON DESIR on 02/08/22 1422 Ketoconazole (Ketoconazole) 15 Gm Cream..g., 1 APPLIC TP BID PRN for REDNESS, ( Reported) Entered as Reported by: PEYTON DESIR on 02/08/22 1423 L. Acidophilus/L.bulgaricus (Lactobacillus 1 Million Cfu Tb) 1 Each Tablet, 1 EACH PO 0600,1400, (Reported) Entered as Reported by: BRITTANEY HEBERT on 05/04/21 1436 Levothyroxine Sodium (Synthroid) 25 Mcg Tablet, 25 MCG PO DAILY, (Reported) Entered as Reported by: SLIME AREVALO on 05/01/19 08 Lisinopril (Lisinopril) 5 Mg Tablet, 5 MG PO DAILY, (Reported) Entered as Reported by: PEYTON DESIR on 02/08/22 1423 Lorazepam (Ativan) 0.5 Mg Tablet, 0.5 MG PO DAILY, (Reported) Entered as Reported by: PEYTON DESIR on 05/19/21 1149 Magnesium Hydroxide (Milk of Magnesia) 400 Mg/5 Ml Oral.susp, 30 ML PO DAILY PRN for CONSTIPATION-7TH LINE, (Reported) Entered as Reported by: SLIME AREVALO on 05/01/19 08 Magnesium Oxide (Magox 400) 400 Mg Tablet, 400 MG PO DAILY, (Reported) Entered as Reported by: SLIME AREVALO on 05/01/19 08 Menthol (Biofreeze) 118 Ml Gel..ml., 1 APPLIC TP Q6H PRN for SPASMS, (Reported) Entered as Reported by: SLIME AREVALO on 06/05/19 0917 Methyl Salicylate/Menth/Camph (Muscle Rub Ultra Str Cream) 114 Gm Cream..g., 1 APPLIC TP Q6H PRN for PAIN-BREAKTHROUGH, (Reported) Entered as Reported by: PEYTON DESIR on 05/19/21 1149 Metoprolol Succinate (Metoprolol Succinate) 25 Mg Tab.er.24h, 25 MG PO DAILY, (Reported) Entered as Reported by: BRITTANEY HEBERT on 05/04/21 1436 Miconazole Nitrate (Remedy Antifungal) 85 Gm Powder, 1 APPLIC TP Q8H PRN for PREVENTION, (Reported) Entered as Reported by: PEYTON DESIR on 05/19/21 1149 Nystatin (Nystatin) 100,000 Unit/Gram Oint...g., 1 APPLIC TOP BID, (Reported) Entered as Reported by: PEYTON DESIR on 05/08/22 1555 Ondansetron HCl (Ondansetron HCl) 4 Mg Tablet, 4 MG PO Q8H PRN for NAUSEA/VOMITING-1ST LINE, (Reported) Entered as Reported by: PEYTON DESIR on 01/03/22 1420 Oxybutynin Chloride (Oxybutynin Chloride ER) 10 Mg Tab.er.24, 10 MG PO DAILY, (Reported) Entered as Reported by: BRITTANEY HEBERT on 05/04/21 1436 Phenol (Chloraseptic) 20 Ml [place], 2 SPRAYS MM Q4H PRN for PAIN-BREAKTHROUGH, (Reported) Entered as Reported by: PEYTON DESIR on 01/03/22 1420 Polyethylene Glycol 3350 (Polyethylene Glycol 3350) 17 Gm Powd.pack, 17 GM PO Q12H PRN for CONSTIPATION-2ND LINE, (Reported) Entered as Reported by: BRITTANEY HEBERT on 05/04/21 1436 Sennosides/Docusate Sodium (Senna S Tablet) 1 Each Tablet, 3 EA PO 1800, (Reported) Entered as Reported by: SLIME AREVALO on 05/01/19 0831 Sertraline HCl (Sertraline HCl) 50 Mg Tablet, 50 MG PO 1800, (Reported) Entered as Reported by: SLIME AREVALO on 05/01/19 0831 Sulfamethoxazole/Trimethoprim (Bactrim Ds Tablet) 1 Each Tablet, 1 EACH PO BID Prescribed by: JACQUELINE MCDANIEL on 05/14/22 1228 Trazodone HCl (Trazodone HCl) 100 Mg Tablet, 100 MG PO 1800, (Reported) Entered as Reported by: SLIME AREVALO on 05/01/19 0831 Trolamine Salicylate/Aloe Vera (Aspercreme 10% Cream) 35.4 Gm Cream..g., 1 APPLIC TP Q8H PRN for PAIN-BREAKTHROUGH, (Reported) Entered as Reported by: BRITTANEY HEBERT on 05/04/21 1436 Ubidecarenone (Co Q-10) 50 Mg Capsule, 50 MG PO DAILY, (Reported) Entered as Reported by: PEYTON DESIR on 01/03/22 1420 Discontinued Medications Cephalexin (Cephalexin) 500 Mg Capsule, 500 MG PO DAILY, (Reported) Entered as Reported by: PEYTON DESIR on 05/08/22 1555 Past Lutncmd-Bmavbf-Lyobdf Hx Patient Social History Former Smoker, Quit: Nov 25, 1982 Type Used: Cigarettes 2nd Hand Smoke Exposure: No Recent Hopitalizations: No Alcohol Use?: No Have you traveled recently?: No Immunizations Up To Date Date of Pneumonia Vaccine: Aug 28, 2019 Date of Influenza Vaccine: Aug 25, 2021 Seasonal Allergies Seasonal Allergies: No Surgeries History of Surgeries: Yes (BYPASS GRAFT, FOOT MANIPULATION, FLEXIBLE DIAG CYSTOSCOPY, colostomy) Surgeries: Bowel Surgery, CABG, Hysterectomy Respiratory History of Respiratory Disorde: Yes (COPD) Respiratory Disorders: COPD Cardiovascular History of Cardiac Disorders: Yes Cardiac Disorders: Coronary Artery Disease, Heart Attack, 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 Neurological History of Neurological Disord: No 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 System Hx 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 Disorders: No Sexually Transmitted Disease: No HIV/AIDS: No 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 Genitourinary History of Genitourinary Disor: Yes Genitourinary Disorders: Renal Failure Gastrointestinal History of Gastrointestinal Di: Yes (colon mass, COLOSTOMY) Gastrointestinal Disorders: Diverticulosis Musculoskeletal History of Musculoskeletal Dis: Yes Musculoskeletal Disorders: Arthritis Endocrine History of Endocrine Disorders: Yes Endocrine Disorders: Diabetes, Insulin dep HEENT History of HEENT Disorders: Yes (WEARS GLASSES) Loss of Vision: Denies Cancer History of Cancer: No Psychosocial History of Psychiatric Problem: Yes Behavioral Health Disorders: Sleep Difficulties, Anxiety, Depression Integumentary History of Skin or Integumenta: No Blood Transfusions History of Blood Disorders: No Adverse Reaction to a Blood Tr: No (N/A) Family Medical History Significant Family History: Heart Disease, Diabetes Family Medial History: Alzheimer's disease Cardiovascular disease 19 FATHER 19 MOTHER Diabetes mellitus 19 MOTHER Review of Systems-General ROS-Unable to Obtain: pt not communicating Physical Exam-General Problems Physical Exam Vital Signs Vital Signs - First Documented 05/20/22 05/20/22 05/20/22 09:08 11:25 12:10 Temp 36.3 Pulse 100 Resp 14 B/P (MAP) 85/50 (62) Pulse Ox 98 O2 Delivery NIV Bilevel O2 Flow Rate 30.00 FiO2 30 Capillary Refill : Less Than 3 Seconds General Appearance: mild distress, cachetic Eyes: Bilateral Eye PERRL, Bilateral Eye EOMI Respiratory: lungs clear, no accessory muscle use, decreased breath sounds (probably secondary to poor effort, place on BiPap when I was in room) Cardiovascular: no edema, tachycardia Gastrointestinal: soft, no organomegaly Extremities: no pedal edema Data Review Labs Laboratory Tests 05/20/22 09:13: White Blood Count 19.2H, Red Blood Count 3.76L, Hemoglobin 10.3L, Hematocrit 34L , Mean Corpuscular Volume 91, Mean Corpuscular Hemoglobin 27, Mean Corpuscular Hemoglobin Concent 30L, Red Cell Distribution Width 14.8H, Platelet Count 538H, Mean Platelet Volume 9.1, Immature Granulocyte % (Auto) 1, Neutrophils (%) ( Auto) 63, Lymphocytes (%) (Auto) 30, Monocytes (%) (Auto) 5, Eosinophils (%) (Auto) 1, Basophils (%) (Auto) 1, Neutrophils # (Auto) 12.0H, Lymphocytes # (Auto) 5.7H, Monocytes # (Auto) 1.0, Eosinophils # (Auto) 0.2, Basophils # (Auto) 0.1, Immature Granulocyte # (Auto) 0.1, Neutrophils % (Manual) 65, Lymphocytes % (Manual) 26, Monocytes % (Manual) 8, Eosinophils % (Manual) 1, Hypochromasia SLIGHT, Prothrombin Time 14.3, INR Comment 1.1, Activated Partial Thromboplast Time 26, Sodium Level 137, Potassium Level 5.1H, Chloride Level 96L , Carbon Dioxide Level 29, Anion Gap 12, Blood Urea Nitrogen 50H, Creatinine 1.82H, Estimat Glomerular Filtration Rate 28, BUN/Creatinine Ratio 27, Glucose Level 164H, Lactic Acid Level 1.32, Calcium Level 10.0, Corrected Calcium 10.2H, Magnesium Level 2.5H, Total Bilirubin 0.2, Aspartate Amino Transf (AST/SGOT) 15, Alanine Aminotransferase (ALT/SGPT) 7, Alkaline Phosphatase 64, C-Reactive Protein High Sensitivity 1.22H, Total Protein 8.1, Albumin 3.8, Procalcitonin 0.04, Thyroid Stimulating Hormone (TSH) 1.59, Free Thyroxine 0.80 05/20/22 09:22: Urine Color YELLOW, Urine Clarity CLOUDY, Urine pH 6.5, Urine Specific Ava 1.020, Urine Protein 2+H, Urine Glucose (UA) 3+H, Urine Ketones NEGATIVE, Urine Nitrite NEGATIVE, Urine Bilirubin NEGATIVE, Urine Urobilinogen 0.2, Urine Leukocyte Esterase 3+H, Urine RBC (Auto) 2+H, Urine RBC 25-50H, Urine WBC TNTCH, Urine Crystals NONE, Urine Bacteria LARGEH, Urine Casts NONE, Urine Mucus NEGATIVE, Urine Culture Indicated YES 05/20/22 09:43: Blood Gas Puncture Site NA, Blood Gas Patient Temperature 36.3, Arterial Blood pH 7.32*L, Arterial Blood Partial Pressure CO2 67H, Arterial Blood Partial Pressure O2 115H, Arterial Blood HCO3 34H, Arterial Blood Total CO2 36.3H, Arterial Blood Oxygen Saturation 99, Arterial Blood Base Excess 8.0H, Vaughn Test NA, Blood Gas Ventilator Setting NO, Blood Gas Inspired Oxygen NA 05/20/22 12:44: Lactic Acid Level 0.57 Radiology Date of Exam:05/20/22 CT HEAD WO PROCEDURE: CT head without contrast. TECHNIQUE: Multiple contiguous axial images were obtained through the brain without the use of intravenous contrast. Auto Exposure Controls were utilized during the CT exam to meet ALARA standards for radiation dose reduction. INDICATION: Unresponsiveness. Evaluate for stroke. COMPARISON: CT head performed on May 08, 2022. FINDINGS: Age-related global volume loss and background microvascular changes appear stable. There is no new territorial loss of vu-white differentiation evident or findings of vasogenic edema. There are no findings of acute hemorrhage. There is no mass effect. There is no hydrocephalus. There is no extra-axial collection. The basilar cisterns are patent. The posterior fossa demonstrates no acute process. The mastoids are clear. The paranasal sinuses are clear. The orbital contents are unremarkable. There is no acute calvarial abnormality. IMPRESSION: Age-related volume loss with background microvascular changes within the white matter. These findings appear stable from the prior exam. No new or acute intracranial abnormality is demonstrated. Dictated by: Dictated on workstation # [id number] Dict: 05/20/22 [id number] Trans: 05/20/22 1013 JM [id number] Interpreted by: PAUL COTO MD Electronically signed by: PAUL COTO MD 05/20/22 1013 Assessment/Plan Assessment/Plan Assessment/Plan Hypotension - probably secondary to sepsis Venous insufficiency CAD s/p CABG UTI Consent from sister for central line for access and meds, pt is DNR and DNI YARON NUNN DO May 20, 2022 13:58
--- NOTE | 2022-05-20 14:01 | Progress Note-Post Operative ---
Post-Operative Progess Note Surgeon (s)/Nursing Informatics Clinical Analyst (s) Surgeon YARON NUNN DO Nursing Informatics Clinical Analyst: none Pre-Operative Diagnosis Hypotension, Venous insufficiency Post-Operative Diagnosis same Procedure & Operative Findings Date of Procedure 05/20/22 Procedure Performed/Findings PROCEUDRE: Central line placement The patient was in their bed in the ICU, was prepped and draped in a sterile fashion. A surgical pause was performed. Ultrasound was used to locate the left internal jugular vein. Once located anesthetic was infiltrated above it. Using an 18 gauge finder needle and watching with the US; the right internal jugular vein was accessed. Dark nonpulsatile blood was withdrawn. The wire was inserted. US assured proper placement. The needle was removed. A [#11] blade scalpel was used to make a stab incision along the guidewire. Dilator sheath was then advanced over the wire using Seldinger technique and the dilator was removed. The Groshong catheter was inserted over the guide wire using the Seldinger technique. The Groshong wire was removed. The catheter was then accessed in all three ports without difficulty. Good flash of blood was seen and it was then flushed with saline. The catheter was sutured in place with 3-0 silk on a jeanine needle. The areas were then washed and dried. Sterile dressing was placed over incision. The patient tolerated the procedure well without complication. Anesthesia Type local lidocaine Estimated Blood Loss Estimated blood loss (mL): scant Specimens/Packing Specimens Removed none YARON NUNN DO May 20, 2022 14:01
--- NOTE | 2022-05-20 17:13 | History & Physical-Hospitalist ---
History of Present Illness HPI/Chief Complaint Sarah Morales is an 82 year old female well known from previous admissions who presented with unresponsiveness. She is unable to provide any history. She lives at [facility]. She was in the [place] ER a couple days ago and reportedly had a negative urine culture. In the ER, her UA is consistent with recurrent UTI. She had too numerous to count WBCs and large bacteria. The urine in her catheter appears concentrated and purulent. She was opening her eyes on my exam and was following commands by squeezing fingers. Source: patient Exam Limitations: no limitations Date Seen 05/20/22 Time Seen by a Provider: 12:30 Attending Physician Josh Navarro MD PCP Admitting Physician: Jacqueline Mcdaniel MD Attending Physician: Jacqueline Mcdaniel MD Referring Physician Date of Admission May 20, 2022 at 10:30 Home Medications & Allergies Home Medications Reviewed patient Home Medication Reconciliation performed by pharmacy medication reconciliations metallurgy laboratory technician and/or nursing. Patients Allergies have been reviewed. Allergies Allergies Coded Allergies Fish Containing Products (Unverified Allergy, Unknown, 03/07/21) iodine (Unverified Allergy, Unknown, 03/07/21) peanut (Unverified Allergy, Unknown, 03/07/21) shrimp (Verified Allergy, Unknown, 04/30/19) Uncoded Allergies POPCORN ( Allergy, Unknown, 03/07/21) Past Zbndvqw-Rzwyqx-Knbtkp Hx Patient Social History Tobacco Use?: No Use of E-Cig and/or Vaping dev: No Substance use?: No Alcohol Use?: No Pt feels they are or have been: No Immunizations Up To Date Date of Influenza Vaccine: Aug 25, 2021 First/Initial COVID19 Vaccinat: 12/08/20 Second COVID19 Vaccination Eric: 12/29/20 Tetanus Booster (TDap): Unknown Date of Pneumonia Vaccine: Aug 28, 2019 Seasonal Allergies Seasonal Allergies: No Current Status status: No status: No Advance Directives: Yes Advance Directive Location: Copy placed in chart Communicates: Verbally Primary Language: [place] Citizen Preferred Spoken Language: [place] Citizen Past Medical History Surgeries: Bowel Surgery, CABG, Hysterectomy COPD Currently Using CPAP: No Currently Using BIPAP: No Coronary Artery Disease, Heart Attack, 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 Sexually Transmitted Disease: No HIV/AIDS: No Renal Failure Diverticulosis Arthritis Diabetes, Insulin dep Loss of Vision: Denies Sleep Difficulties, Anxiety, Depression Blood Disorders: No Adverse Reaction/Blood Tranf: No (N/A) Family Medical History Alzheimer's disease Cardiovascular disease 19 FATHER 19 MOTHER Diabetes mellitus 19 MOTHER Heart Disease, Diabetes Review of Systems Constitutional: see HPI Physical Exam Physical Exam Vital Signs Vital Signs - First Documented 05/20/22 05/20/22 05/20/22 05/20/22 09:08 11:25 12:00 12:10 Temp 36.3 Pulse 100 Resp 14 B/P (MAP) 85/50 (62) Pulse Ox 98 O2 Delivery NIV Bilevel O2 Flow Rate 30.00 FiO2 30 Capillary Refill : Less Than 3 Seconds Height, Weight, BMI Height: 0'60.00" Weight: 150lbs. 3.2oz. 68.966621ym; 19.57 BMI Method:Stated General Appearance: No Apparent Distress, Chronically ill HEENT: PERRL/EOMI, Other (wearing BiPAP mask) Neck: Normal Inspection, Supple Respiratory: No Respiratory Distress, Wheezing Cardiovascular: Regular Rate, Rhythm, No Murmur Gastrointestinal: Normal Bowel Sounds, Soft Extremity: Normal Inspection, No Pedal Edema Neurologic/Psychiatric: Other (lethargic, following commands) Skin: Normal Color, Warm/Dry Results Results/Procedures Labs Laboratory Tests 05/20/22 09:13 Patient resulted labs reviewed. Imaging: Reviewed Imaging Films, Reviewed Imaging Report Assessment/Plan Admission Diagnosis Severe sepsis due to UTI Admission Status: Inpatient Order (span 2 midnights) Reason for Inpatient Admission: IV antibiotics Assessment and Plan Severe sepsis UTI SIRS+ with leukocytosis, tachycardia, tachypnea UA consistent with UTI Urine culture pending Blood cultures pending Previous admission with MRSA positive blood culture and Staph aureus in urine Started on Vanc and Rocephin Acute respiratory failure with hypercapnia ABG with acute hypercapnia Started on BiPAP HTN T2DM CAD s/p CABG HFpEF COPD Hypothyroidism Continue home meds once med rec completed and mental status improves DVT prophylaxis: Lovenox Diagnosis/Problems Diagnosis/Problems (1) Severe sepsis Status: Acute (2) UTI (urinary tract infection) Status: Acute (3) Acute kidney injury superimposed on chronic kidney disease Status: Acute (4) Acute respiratory failure with hypercapnia Status: Acute JACQUELINE MCDANIEL MD May 20, 2022 17:13
[2022-05-20] MEDS: ENOXAPARIN INJECTION 30 MG/0.3 ML SYR SC SCH (21:35)
[2022-05-21] MEDS: NS IV 1000 ML 1,000 ML IV SCH ×4 (02:00→20:22)
[2022-05-21 04:44] LABS: BASOPHILS # (AUTO) 0.1 10^3/uL (0.0-0.1); BASOPHILS % (AUTO) 1 % (0-10); EOSINOPHILS # (AUTO) 0.1 10^3/uL (0.0-0.3); EOSINOPHILS % (AUTO) 1 % (0-10); HEMATOCRIT 31 % (35-52); HEMOGLOBIN 9.2 g/dL (11.5-16.0); LYMPHOCYTES % (AUTO) 25 % (12-44); MEAN CORPUSCULAR HEMOGLOBIN 27 pg (25-34); MEAN CORPUSCULAR HGB CONC 30 g/dL (32-36); MEAN CORPUSCULAR VOLUME 91 fL (80-99); MEAN PLATELET VOLUME 8.8 fL (9.0-12.2); MONOCYTES # (AUTO) 0.8 10^3/uL (0.0-1.0); MONOCYTES % (AUTO) 5 % (0-12); NEUTROPHILS # (AUTO) 10.9 10^3/uL (1.8-7.8); NEUTROPHILS % (AUTO) 69 % (42-75); PLATELET COUNT 425 10^3/uL (130-400); WHITE BLOOD COUNT 15.9 10^3/uL (4.3-11.0)
[2022-05-21 04:55] LABS: ALBUMIN 3.4 GM/DL (3.2-4.5); POTASSIUM 4.7 MMOL/L (3.6-5.0)
[2022-05-21 04:56] LABS: CALCIUM 8.8 MG/DL (8.5-10.1)
[2022-05-21 04:58] LABS: TOTAL PROTEIN 7.2 GM/DL (6.4-8.2)
[2022-05-21 04:59] LABS: BILIRUBIN,TOTAL 0.3 MG/DL (0.1-1.0)
[2022-05-21 05:01] LABS: CREATININE SERUM 0.88 MG/DL (0.60-1.30); PHOSPHORUS 2.9 MG/DL (2.3-4.7)
[2022-05-21] MEDS: MAGNESIUM 1 GM/100 ML IVPB 100 ML IV SCH (05:02)
[2022-05-21] MEDS: POTASSIUM CL 10MEQ/50ML IVPB 50 ML IV SCH (05:02)
[2022-05-21] MEDS: KCL 20 MEQ TAB (K-DUR) PO SCH (05:03)
[2022-05-21 05:05] LABS: MAGNESIUM 2.1 MG/DL (1.6-2.4)
--- NOTE | 2022-05-21 08:26 | Progress Note - Hospitalist ---
Subjective HPI/CC On Admission Date Seen by Provider: May 21, 2022 Sarah Morales is an 82 year old female well known from previous admissions who presented with unresponsiveness. She is unable to provide any history. She lives at [facility]. She was in the [place] ER a couple days ago and reportedly had a negative urine culture. In the ER, her UA is consistent with recurrent UTI. She had too numerous to count WBCs and large bacteria. The urine in her catheter appears concentrated and purulent. She was opening her eyes on my exam and was following commands by squeezing fingers. Subjective/Events-last exam Pt reports feeling much better. Off BiPAP. No complaints. Discussed plan for continued IV abx and awaiting cultures. She is in agreement. Rn reports some oozing at IJ. Sandbag placed. Focused Exam Lactate Level 05/20/22 09:13: Lactic Acid Level 1.32 05/20/22 12:44: Lactic Acid Level 0.57 Time of Focused Exam: 10:41 Objective Exam Vital Signs Vital Signs Date Time Temp Pulse Resp B/P (MAP) Pulse Ox O2 Delivery O2 Flow Rate FiO2 05/21/22 07:56 36.5 05/21/22 07:35 99 Nasal Cannula 2.00 05/21/22 07:00 104 05/21/22 06:00 15 184/87 05/20/22 12:10 30 Capillary Refill : Less Than 3 Seconds General Appearance: No Apparent Distress Respiratory: Lungs Clear, No Respiratory Distress Cardiovascular: Regular Rate, Rhythm, No Murmur Neurologic/Psychiatric: Alert, Oriented x3 (major details only) Results/Procedures Lab Laboratory Tests 05/20/22 09:13 05/21/22 04:30 Patient resulted labs reviewed. Imaging: Reviewed Imaging Films, Reviewed Imaging Report Assessment/Plan Assessment and Plan Assess & Plan/Chief Complaint Severe sepsis UTI UA consistent with UTI Urine culture pending Blood cultures pending Previous admission with MRSA positive blood culture and Staph aureus in urine Started on Vanc and Rocephin Leukocytosis improving Acute respiratory failure with hypercapnia ABG with acute hypercapnia Off BiPAP just on Nasal cannula Wears oxygen chronically but satting 100% so weaned down while at bedside HTN T2DM CAD s/p CABG HFpEF COPD Hypothyroidism Continue home meds once med rec completed later today DVT prophylaxis: Lovenox Critical Care Critically Ill Patient ALICIA MORGAN MD May 21, 2022 08:26
[2022-05-21] MEDS: cefTRIAXone 1 GM IV (PRE-MIX) 50 ML IV SCH (08:42)
[2022-05-21] MEDS ORDERED: VANCOMYCIN 500 MG/NS 100 ML IV SCH ×2 (10:00)
[2022-05-21] MEDS ORDERED: SULF1TAB38 PO (10:03)
[2022-05-21] MEDS ORDERED: CFTR1V IM (10:03)
[2022-05-21] MEDS: inSUlin ASPART (NovoLOG) 1 UNIT/0.01 ML (CHARGE PER UNIT) SC SCH ×3 (10:35→20:14)
--- NOTE | 2022-05-21 10:48 | Tele-ICU Progress Note ---
Subjective Date Seen by a Provider: May 21, 2022 Time Seen by a Provider: 10:47 Subjective/Events-last exam (Tele-ICU Physician , Progress Note ) Available chart/ vitals / labs / Images reviewed Video assessment done using teleICU camera, rest of exam as per RN Discussed with RN , EXAM PER RN Events overnight : oozing at IJ. Afebrile FiO2 - ra I/O = Drips: ns 150 Pressors: , hemodynamically stable Consultants: Hospital course: (05/20) 82 y F from ER with AMS/UTI/ hypotension hx MSRA placed left IJ CVC and placed to BIPap A/P 1. Hypotension probably due to severe sepsis. 2. Recurrent urinary tract infection 3. Decreased mental status secondary to metabolic encephalopathy 4. Hypoxic respiratory failure requiring BiPAP ventilation. Recommendations 1. Continue hydration with IV fluids 2. Agree with empiric antibiotic choice of Rocephin and vancomycin and await for cultures and de-escalate as per the cultures. 3 OFF BiPAP - on NC now - to cont 4. DVT prophylaxis and ulcer prophylaxis. Lines : L IJ 05/20 (Central Line Necessity Reviewed) Guo: OG: Nutrition: Analgesia: Anxiety/ delirium VTE Prophylaxis: on hold with boleeding at cental line site, SCD Stress Ulcer Prophylaxis: Plans in collaboration with bedside consultants and IM MDs. Discussed with RN to reach out if any questions or concerns A total of 31minutes of critical care time was devoted to this patient today, required to treat and/or prevent further deterioration of critical care condition ( as above) . Sepsis Event Evaluation Height, Weight, BMI Height: 0'60.00" Weight: 150lbs. 3.2oz. [id number]; 19.57 BMI Method:Stated Focused Exam Lactate Level 05/20/22 09:13: Lactic Acid Level 1.32 05/20/22 12:44: Lactic Acid Level 0.57 Time of Focused Exam: 10:41 Exam Exam Patient acknowledged, consented, and participated in this virtual visit which was conducted using real time audio/video Vital Signs Date Time Temp Pulse Resp B/P (MAP) Pulse Ox O2 Delivery O2 Flow Rate FiO2 05/21/22 10:00 106 15 164/78 94 Room Air 05/21/22 09:00 105 16 169/68 94 Room Air 05/21/22 08:00 102 18 174/81 99 Room Air 05/21/22 07:56 36.5 05/21/22 07:35 99 Nasal Cannula 2.00 05/21/22 07:00 105 15 169/78 100 Nasal Cannula 2.00 05/21/22 07:00 104 05/21/22 06:00 105 15 184/87 99 Nasal Cannula 2.00 05/21/22 05:03 37.0 05/21/22 05:00 103 14 177/83 97 Nasal Cannula 2.00 05/21/22 04:00 101 12 170/65 98 Nasal Cannula 2.00 05/21/22 04:00 99 Nasal Cannula 2.00 05/21/22 03:00 103 15 178/83 98 Nasal Cannula 2.00 05/21/22 02:00 101 12 161/65 96 Nasal Cannula 2.00 05/21/22 01:00 97 05/21/22 01:00 97 13 180/83 99 Nasal Cannula 2.00 05/21/22 00:02 37.1 05/21/22 00:00 98 20 171/75 100 Nasal Cannula 2.00 05/20/22 23:59 98 Nasal Cannula 2.00 05/20/22 23:02 93 Room Air 05/20/22 23:00 100 13 177/84 94 Nasal Cannula 2.00 05/20/22 22:26 Nasal Cannula 2.00 05/20/22 22:00 72 11 173/74 95 Room Air 05/20/22 21:00 71 9 161/64 92 Room Air 05/20/22 20:00 100 Room Air 05/20/22 20:00 67 13 155/58 93 Room Air 05/20/22 19:43 35.9 05/20/22 19:31 35.9 05/20/22 19:30 Room Air 05/20/22 19:00 69 18 163/61 98 Room Air 05/20/22 19:00 69 05/20/22 18:00 67 12 166/64 94 Nasal Cannula 2.00 05/20/22 17:00 100 24 127/82 97 Nasal Cannula 2.00 05/20/22 16:06 35.7 05/20/22 16:05 100 Nasal Cannula 2.00 05/20/22 16:00 65 10 140/53 100 Nasal Cannula 2.00 05/20/22 15:00 66 13 148/59 99 Nasal Cannula 2.00 05/20/22 14:00 67 10 153/61 100 Nasal Cannula 2.00 05/20/22 13:00 67 16 115/52 98 NIV Bilevel 30.00 05/20/22 13:00 63 05/20/22 12:10 100 NIV Bilevel 30 05/20/22 12:00 66 23 131/54 95 NIV Bilevel 30.00 05/20/22 11:33 36.3 65 19 125/50 98 05/20/22 11:25 66 20 98 30.00 I & O 05/21/22 07:00 Intake Total 800 ml Output Total 410 ml Balance 390 ml Height & Weight Height: 0'60.00" Weight: 150lbs. 3.2oz. [id number]; 19.57 BMI Method:Stated General Appearance: No Apparent Distress HEENT: PERRL/EOMI, Normal ENT Inspection, Pharynx Normal Neck: Normal Inspection; No JVD Respiratory: Lungs Clear, No Respiratory Distress Cardiovascular: Regular Rate, Rhythm, No Murmur Capillary Refill: Less Than 3 Seconds Gastrointestinal: soft, no organomegaly Extremity: Normal Inspection, No Pedal Edema Neurologic/Psychiatric: Alert, Oriented x3 (major details only) Skin: Normal Color, Warm/Dry Results Lab Laboratory Tests 05/20/22 09:13 05/21/22 04:30 Assessment/Plan Assessment/Plan 1 JOBY BURTON MD May 21, 2022 10:48
--- NOTE | 2022-05-21 19:08 | Progress Note - Surgery ---
Subjective Time Seen by a Provider: 15:23 Subjective/Events-last exam I was called by nurse to re-evaluate pt because the stab incision for central line bled all night and won't stop. Pt seen and examined, she is actually alert and oriented today. Pt can answer questions and carry on a conversation. Nurse states she held pressure for an hour today, they held for around 2 hours last night and have tried sandbags and other tape/dressings. All to no avail. Pt states she feels fine. Review of Systems General: Fatigue, Malaise Pulmonary: No Dyspnea, No Cough Cardiovascular: No: Chest Pain, Palpitations Focused Exam Lactate Level 05/20/22 09:13: Lactic Acid Level 1.32 05/20/22 12:44: Lactic Acid Level 0.57 Time of Focused Exam: 10:41 Objective Exam Vital Signs Date Time Temp Pulse Resp B/P (MAP) Pulse Ox O2 Delivery O2 Flow Rate FiO2 05/21/22 18:00 87 15 176/74 97 Room Air 05/21/22 17:30 178/76 05/21/22 17:00 87 6 190/66 96 Room Air 05/21/22 16:00 94 Room Air 05/21/22 15:33 36.5 05/21/22 15:00 81 6 178/66 96 Room Air 05/21/22 14:00 85 13 178/70 94 Room Air 05/21/22 13:00 84 19 180/74 95 Room Air 05/21/22 12:49 81 05/21/22 12:00 94 Room Air 05/21/22 12:00 36.3 05/21/22 12:00 81 17 95 Room Air 05/21/22 11:58 96 Room Air 0.00 05/21/22 11:00 107 14 179/80 93 Room Air 05/21/22 10:00 106 15 164/78 94 Room Air 05/21/22 09:00 105 16 169/68 94 Room Air 05/21/22 08:00 102 18 174/81 99 Room Air 05/21/22 07:56 36.5 05/21/22 07:35 99 Nasal Cannula 2.00 05/21/22 07:00 105 15 169/78 100 Nasal Cannula 2.00 05/21/22 07:00 104 05/21/22 06:00 105 15 184/87 99 Nasal Cannula 2.00 05/21/22 05:03 37.0 05/21/22 05:00 103 14 177/83 97 Nasal Cannula 2.00 05/21/22 04:00 101 12 170/65 98 Nasal Cannula 2.00 05/21/22 04:00 99 Nasal Cannula 2.00 05/21/22 03:00 103 15 178/83 98 Nasal Cannula 2.00 05/21/22 02:00 101 12 161/65 96 Nasal Cannula 2.00 05/21/22 01:00 97 05/21/22 01:00 97 13 180/83 99 Nasal Cannula 2.00 05/21/22 00:02 37.1 05/21/22 00:00 98 20 171/75 100 Nasal Cannula 2.00 05/20/22 23:59 98 Nasal Cannula 2.00 05/20/22 23:02 93 Room Air 05/20/22 23:00 100 13 177/84 94 Nasal Cannula 2.00 05/20/22 22:26 Nasal Cannula 2.00 05/20/22 22:00 72 11 173/74 95 Room Air 05/20/22 21:00 71 9 161/64 92 Room Air 05/20/22 20:00 100 Room Air 05/20/22 20:00 67 13 155/58 93 Room Air 05/20/22 19:43 35.9 05/20/22 19:31 35.9 05/20/22 19:30 Room Air I & O 05/21/22 07:00 Intake Total 800 ml Output Total 410 ml Balance 390 ml Capillary Refill : Less Than 3 Seconds General Appearance: No Apparent Distress, Chronically ill HEENT: Moist Mucous Membranes, Other (neck incision is oozing dark blood) Neck: Normal Inspection; No JVD Respiratory: Lungs Clear, No Respiratory Distress Cardiovascular: Regular Rate, Rhythm, No Murmur Gastrointestinal: soft, no organomegaly Neurologic/Psychiatric: Oriented x3 (major details only) Results Lab Laboratory Tests 05/21/22 04:30: White Blood Count 15.9H, Red Blood Count 3.39L, Hemoglobin 9.2L, Hematocrit 31L, Mean Corpuscular Volume 91, Mean Corpuscular Hemoglobin 27, Mean Corpuscular H emoglobin Concent 30L, Red Cell Distribution Width 14.3, Platelet Count 425H, Mean Platelet Volume 8.8L, Immature Granulocyte % (Auto) 0, Neutrophils (%) (Auto) 69, Lymphocytes (%) (Auto) 25, Monocytes (%) (Auto) 5, Eosinophils (%) (Auto) 1, Basophils (%) (Auto) 1, Neutrophils # (Auto) 10.9H, Lymphocytes # (Au to) 4.0, Monocytes # (Auto) 0.8, Eosinophils # (Auto) 0.1, Basophils # (Auto) 0.1, Immature Granulocyte # (Auto) 0.1, Sodium Level 141, Potassium Level 4.7, Chloride Level 106, Carbon Dioxide Level 24, Anion Gap 11, Blood Urea Nitrogen 29H, Creatinine 0.88, Estimat Glomerular Filtration Rate 66, BUN/Creatinine Ratio 33, Glucose Level 106H, Calcium Level 8.8, Corrected Calcium 9.3, Phosphorus Level 2.9, Magnesium Level 2.1, Total Bilirubin 0.3, Aspartate Amino Transf (AST/SGOT) 14, Alanine Aminotransferase (ALT/SGPT) 7, Alkaline Phosphatase 68, Total Protein 7.2, Albumin 3.4 05/21/22 10:26: Glucometer 107 05/21/22 15:35: Glucometer 120H Microbiology 05/20/22 MRSA Screen - Final, Complete 05/20/22 Blood Culture - Preliminary, Resulted No growth Assessment/Plan Assessment/Plan Assessment/Plan Non-healing neck incision - I held direct pressure which did not work and therefore threw a horizontal mattress suture through the incision (using 2-0 silk). Tied this off and ble eding stopped. Will sign off. Hypotension - probably secondary to sepsis Venous insufficiency CAD s/p CABG UTI Consent from sister for central line for access and meds, pt is DNR and DNI YARON NUNN DO May 21, 2022 19:08
[2022-05-21] MEDS: ENOXAPARIN INJECTION 30 MG/0.3 ML SYR SC SCH (20:22)
[2022-05-21] MEDS ORDERED: BISACODYL 5 MG (DULCOLAX) TABLET PO PRN (20:45)
[2022-05-21] MEDS: OXYBUTYNIN (DITROPAN) 5 MG TAB PO SCH (23:57)
[2022-05-22] MEDS: hydrALAZINE (APESOLINE) 20 MG/ML VIAL IV PRN (02:19)
[2022-05-22 06:17] LABS: BASOPHILS # (AUTO) 0.1 10^3/uL (0.0-0.1); BASOPHILS % (AUTO) 1 % (0-10); EOSINOPHILS # (AUTO) 0.1 10^3/uL (0.0-0.3); EOSINOPHILS % (AUTO) 1 % (0-10); HEMATOCRIT 27 % (35-52); HEMOGLOBIN 8.2 g/dL (11.5-16.0); LYMPHOCYTES # (AUTO) 4.7 10^3/uL (1.0-4.0); LYMPHOCYTES % (AUTO) 28 % (12-44); MEAN CORPUSCULAR HEMOGLOBIN 27 pg (25-34); MEAN CORPUSCULAR HGB CONC 30 g/dL (32-36); MEAN CORPUSCULAR VOLUME 91 fL (80-99); MONOCYTES # (AUTO) 0.8 10^3/uL (0.0-1.0); MONOCYTES % (AUTO) 5 % (0-12); NEUTROPHILS % (AUTO) 66 % (42-75); PLATELET COUNT 475 10^3/uL (130-400); WHITE BLOOD COUNT 16.7 10^3/uL (4.3-11.0)
[2022-05-22] MEDS: LEVOTHYROXINE 25 MCG (LEVOTHROID) TAB PO SCH (06:25)
[2022-05-22] MEDS: NS IV 1000 ML 1,000 ML IV SCH ×4 (06:28→21:06)
[2022-05-22 06:32] LABS: ALBUMIN 3.4 GM/DL (3.2-4.5); POTASSIUM 4.3 MMOL/L (3.6-5.0)
[2022-05-22 06:33] LABS: CALCIUM 8.5 MG/DL (8.5-10.1)
[2022-05-22 06:34] LABS: TOTAL PROTEIN 7.1 GM/DL (6.4-8.2)
[2022-05-22 06:36] LABS: BILIRUBIN,TOTAL 0.3 MG/DL (0.1-1.0)
[2022-05-22 06:38] LABS: CREATININE SERUM 0.75 MG/DL (0.60-1.30); PHOSPHORUS 1.9 MG/DL (2.3-4.7)
[2022-05-22 06:41] LABS: MAGNESIUM 2.1 MG/DL (1.6-2.4)
[2022-05-22] MEDS: inSUlin ASPART (NovoLOG) 1 UNIT/0.01 ML (CHARGE PER UNIT) SC SCH ×4 (06:45→21:23)
[2022-05-22] MEDS: POTASSIUM CL 10MEQ/50ML IVPB 50 ML IV SCH (06:45)
[2022-05-22] MEDS: KCL 20 MEQ TAB (K-DUR) PO SCH (06:45)
[2022-05-22] MEDS: MAGNESIUM 1 GM/100 ML IVPB 100 ML IV SCH (06:45)
--- NOTE | 2022-05-22 08:05 | Tele-ICU Progress Note ---
Subjective Date Seen by a Provider: May 22, 2022 Time Seen by a Provider: 08:04 Sepsis Event Evaluation Height, Weight, BMI Height: 0'60.00" Weight: 150lbs. 3.2oz. 68.635844ov; 19.57 BMI Method:Stated Focused Exam Lactate Level 05/20/22 09:13: Lactic Acid Level 1.32 05/20/22 12:44: Lactic Acid Level 0.57 Time of Focused Exam: 10:41 Exam Exam Patient acknowledged, consented, and participated in this virtual visit which was conducted using real time audio/video Vital Signs Date Time Temp Pulse Resp B/P (MAP) Pulse Ox O2 Delivery O2 Flow Rate FiO2 05/22/22 07:38 96 Room Air 05/22/22 07:21 100 Room Air 0.00 05/22/22 06:32 95 05/22/22 06:10 88 21 150/61 100 Room Air 05/22/22 05:00 89 27 146/51 100 Room Air 05/22/22 04:00 88 14 153/64 100 Room Air 05/22/22 04:00 36.6 05/22/22 04:00 99 Room Air 05/22/22 03:38 85 30 165/66 100 Room Air 05/22/22 03:00 87 164/68 99 Room Air 05/22/22 02:00 82 15 180/75 Room Air 05/22/22 01:00 84 25 194/75 Room Air 05/22/22 01:00 84 05/22/22 00:14 84 22 189/74 Room Air 05/21/22 23:59 96 Room Air 05/21/22 23:43 37.0 05/21/22 23:00 85 17 186/73 Room Air 05/21/22 22:00 85 15 169/66 Room Air 05/21/22 21:00 87 21 184/69 Room Air 05/21/22 20:00 85 18 183/79 Room Air 05/21/22 20:00 96 Room Air 05/21/22 20:00 37.0 05/21/22 19:00 85 13 185/79 Room Air 05/21/22 19:00 85 05/21/22 18:00 87 15 176/74 97 Room Air 05/21/22 17:30 178/76 05/21/22 17:00 87 6 190/66 96 Room Air 05/21/22 16:00 94 Room Air 05/21/22 15:33 36.5 05/21/22 15:00 81 6 178/66 96 Room Air 05/21/22 14:00 85 13 178/70 94 Room Air 05/21/22 13:00 84 19 180/74 95 Room Air 05/21/22 12:49 81 05/21/22 12:00 94 Room Air 05/21/22 12:00 36.3 05/21/22 12:00 81 17 95 Room Air 05/21/22 11:58 96 Room Air 0.00 05/21/22 11:00 107 14 179/80 93 Room Air 05/21/22 10:00 106 15 164/78 94 Room Air 05/21/22 09:00 105 16 169/68 94 Room Air I & O 05/22/22 06:59 Intake Total 1050 ml Output Total 2375 ml Balance -1325 ml Height & Weight Height: 0'60.00" Weight: 150lbs. 3.2oz. 68.999444ud; 19.57 BMI Method:Stated General Appearance: No Apparent Distress, Chronically ill HEENT: Moist Mucous Membranes, Other (neck incision is oozing dark blood) Neck: Normal Inspection; No JVD Respiratory: Lungs Clear, No Respiratory Distress Cardiovascular: Regular Rate, Rhythm, No Murmur Capillary Refill: Less Than 3 Seconds Gastrointestinal: soft, no organomegaly Neurologic/Psychiatric: Oriented x3 (major details only) Results Lab Laboratory Tests 05/20/22 09:13 05/21/22 04:30 05/22/22 06:10 Assessment/Plan Assessment/Plan 1. Hypotension probably due to severe sepsis. 2. Recurrent urinary tract infection 3. Decreased mental status secondary to metabolic encephalopathy 4. Hypoxic respiratory failure requiring BiPAP ventilation. Recommendations 1. Continue hydration with IV fluids 2. Agree with empiric antibiotic choice of Rocephin and vancomycin and await for cultures and de-escalate as per the cultures. 3. Continue BiPAP ventilation and wean oxygen as tolerated. 4. DVT prophylaxis and ulcer prophylaxis. 5. Video visit made and reviewed with the CENTER LEAD CONSULTANT. 6. Collaboration of the care along with the bedside physician. JIMENA OLSEN MD May 22, 2022 08:05
--- NOTE | 2022-05-22 08:43 | Progress Note - Hospitalist ---
Subjective HPI/CC On Admission Date Seen by Provider: May 22, 2022 Sarah Morales is an 82 year old female well known from previous admissions who presented with unresponsiveness. She is unable to provide any history. She lives at [facility]. She was in the [place] ER a couple days ago and reportedly had a negative urine culture. In the ER, her UA is consistent with recurrent UTI. She had too numerous to count WBCs and large bacteria. The urine in her catheter appears concentrated and purulent. She was opening her eyes on my exam and was following commands by squeezing fingers. Subjective/Events-last exam Pt reports feeling much better. No specific complaints. Eating breakfast. Focused Exam Lactate Level 05/20/22 09:13: Lactic Acid Level 1.32 05/20/22 12:44: Lactic Acid Level 0.57 Time of Focused Exam: 10:41 Objective Exam Vital Signs Vital Signs Date Time Temp Pulse Resp B/P (MAP) Pulse Ox O2 Delivery O2 Flow Rate FiO2 05/22/22 07:38 96 Room Air 05/22/22 07:21 0.00 05/22/22 06:32 95 05/22/22 06:10 21 150/61 05/22/22 04:00 36.6 05/20/22 12:10 30 Capillary Refill : Less Than 3 Seconds General Appearance: No Apparent Distress, Chronically ill, Thin Respiratory: Lungs Clear, No Respiratory Distress Cardiovascular: Regular Rate, Rhythm, No Murmur Neurologic/Psychiatric: Alert, Oriented x3 (to major details) Results/Procedures Lab Laboratory Tests 05/22/22 06:10 Patient resulted labs reviewed. Imaging: Reviewed Imaging Films, Reviewed Imaging Report Assessment/Plan Assessment and Plan Assess & Plan/Chief Complaint Severe sepsis UTI UA consistent with UTI Urine culture with yeast and GNR Blood cultures NGTD Continue Rocephin, DC Vanc, add Diflucan Leukocytosis up a little, trend Acute respiratory failure with hypercapnia- resolved On room air, doing well HTN T2DM CAD s/p CABG HFpEF COPD Hypothyroidism Continue home meds DVT prophylaxis: Lovenox Critical Care Critically Ill Patient ALICIA MORGNA MD May 22, 2022 08:43
[2022-05-22] MEDS ORDERED: TROUGH ORDER-PHARMACY XX ONE (09:00)
[2022-05-22] MEDS: FLUTICASONE NASAL SPRAY (FLONASE) 16 GM BTL NS SCH (09:03)
[2022-05-22] MEDS: ISOSORBIDE MONONITRATE 30 MG (IMDUR) TAB PO SCH (09:03)
[2022-05-22] MEDS: fluCOnazole (DIFLUCAN) 100 MG TAB PO SCH (09:03)
[2022-05-22] MEDS: OXYBUTYNIN (DITROPAN) 5 MG TAB PO SCH ×2 (09:03→21:23)
[2022-05-22] MEDS: cefTRIAXone 1 GM IV (PRE-MIX) 50 ML IV SCH (10:37)
[2022-05-22 12:12] VITALS: BP 136/50
--- NOTE | 2022-05-22 14:10 | Physical Therapy Evaluation ---
PT Evaluation-General Medical Diagnosis Admission Date May 20, 2022 at 10:30 Medical Diagnosis: sepsis/AMS Onset Date: May 20, 2022 Therapy Diagnosis Therapy Diagnosis: generalized weakness/debility Height/Weight Height (Feet): 0 Height (Inches): 60.00 Weight (Pounds): 150 Weight (Ounces): 3.2 Precautions Precautions/Isolations: Fall Prevention, Standard Precautions Referral Physician: Andres Reason for Referral: Evaluation/Treatment Medical History Pertinent Medical History: CABG, CAD, COPD, DM, HTN, [place], Renal Insufficiency Additional Medical History covid Current History EMS secondary to AMS Reviewed History: Yes Social History Home: [facility] Prior Prior Level of Function SCALE: Activities may be completed with or without assistive devices. 7-Zyefrdypxj-wadiyou completes the activity by him/herself with no assistance from a helper. 5-Set-up or Clean-up Assistance-helper sets up or cleans up; patient completes activity. Motley assists only prior to or following the activity. 4-Supervision or Touching Assistance-helper provides verbal cues and/or touching/steadying and/or contact guard assistance as patient completes activity. Assistance may be provided throughout the activity or intermittently. 3-Partial/Moderate Assistance-helper does LESS THAN HALF the effort. Motley lifts, holds or supports trunk or limbs, but provides less than half the effort. 2-Substantial/Maximal Assistance-helper does MORE THAN HALF the effort. Motley lifts or holds trunk or limbs and provides more than half the effort. 6-Kwumpxxzd-sknqac does ALL the effort. Patient does none of the effort to complete the activity. Or, the assistance of 2 or more helpers is required for the patient to complete the activity. If activity was not attempted, code reason: 7-Patient Refused. 9-Not Applicable-not attempted and the patient did not perform the activity before the current illness, exacerbation or injury. 10-Not Attempted due to Environmental Limitations-(lack of equipment, weather restraints, etc.). 88-Not Attempted due to Medical Conditions or Safety Concerns. Bed Mobility: 2 Transfers (B,C,W/C): 2 PT Evaluation-Current Subjective Patient agrees to PT Objective Patient Orientation: Confused Attachments: IV ROM/Strength ROM Lower Extremities bilateral LE WFL Strength Lower Extremities 3-/5 grossly bilateral LE Integumentary/Posture Integumentary refer to nursing notes Bowel Incontinence: Yes Bladder Incontinence: Yes Posture WFL Neuromuscular (Tone, Coordination, Reflexes) severely diminished coordination/retropulsive Sensory Vision: Functional Hearing: Impaired Transfers Lying to Sitting/Side of Bed(Q: 1 Sit to Stand (QC): 1 Chair/Nbz-na-Fqyig Xfer(QC): 1 severely retropulsive in sit and with sit to stand and SPT Balance Sitting Static: Poor Sitting Dynamic: Poor Standing Static: Poor Standing Dynamic: Poor Assessment/Needs 82 y.o. female, will benefit from skilled PT to address functional strength and mobility to improve current LOF. Patient is severely retropulsive with all mobility. Patient up in recliner with needs met. Rehab Potential: Guarded PT Cathead Worker Goals [facility] Goals PT Cathead Worker Goals Time Frame: Jun 09, 2022 Roll Left & Right (QC): 3 Sit to Lying (QC): 3 Lying-Sitting on Side/Bed(QC): 3 Sit to Stand (QC): 2 Chair/Qky-ch-Gnvdz Xfer(QC): 2 Walk 10 feet (QC): 2 PT Plan Problem List Problem List: Activity Tolerance, Functional Strength, Safety, Balance, Gait, Transfer, Bed Mobility Treatment/Plan Treatment Plan: Continue Plan of Care Treatment Plan: Bed Mobility, Education, Functional Activity Jennifer, Functional Strength, Gait, Safety, Therapeutic Exercise, Transfers Treatment Duration: Jun 09, 2022 Frequency: 6 times per week Estimated Hrs Per Day: .25 hour per day Time/GCodes Time In: 1331 Time Out: 1345 Total Billed Treatment Time: 14 [facility] HAM[facility]AD BROWN PT May 22, 2022 14:10
[2022-05-22 16:00] VITALS: BP 152/67
[2022-05-22] MEDS: SENNA W/DOCUSATE (SENOKOT S) TABLET PO SCH (17:14)
[2022-05-22] MEDS: SERTRALINE 50 MG (ZOLOFT) TABLET PO SCH (17:14)
[2022-05-22] MEDS: traZODone 100 MG (DESYREL) TAB PO SCH (17:14)
[2022-05-22 20:00] VITALS: BP 142/60
[2022-05-22] MEDS: ENOXAPARIN INJECTION 30 MG/0.3 ML SYR SC SCH (21:25)
[2022-05-22 23:32] VITALS: BP 153/63
[2022-05-23] VITALS (7 sets, daily range): BP systolic 139–198; BP diastolic 64–81
[2022-05-23] MEDS: hydrALAZINE (APESOLINE) 20 MG/ML VIAL IV PRN ×2 (04:46→16:09)
[2022-05-23] MEDS: inSUlin ASPART (NovoLOG) 1 UNIT/0.01 ML (CHARGE PER UNIT) SC SCH ×4 (05:28→20:46)
[2022-05-23 05:34] LABS: BASOPHILS # (AUTO) 0.1 10^3/uL (0.0-0.1); BASOPHILS % (AUTO) 1 % (0-10); EOSINOPHILS # (AUTO) 0.1 10^3/uL (0.0-0.3); EOSINOPHILS % (AUTO) 1 % (0-10); HEMATOCRIT 22 % (35-52); LYMPHOCYTES # (AUTO) 4.6 10^3/uL (1.0-4.0); LYMPHOCYTES % (AUTO) 33 % (12-44); MEAN CORPUSCULAR HEMOGLOBIN 27 pg (25-34); MEAN CORPUSCULAR HGB CONC 30 g/dL (32-36); MEAN CORPUSCULAR VOLUME 91 fL (80-99); MONOCYTES # (AUTO) 0.8 10^3/uL (0.0-1.0); MONOCYTES % (AUTO) 5 % (0-12); NEUTROPHILS # (AUTO) 8.4 10^3/uL (1.8-7.8); NEUTROPHILS % (AUTO) 60 % (42-75); PLATELET COUNT 398 10^3/uL (130-400); WHITE BLOOD COUNT 13.9 10^3/uL (4.3-11.0)
[2022-05-23 05:37] LABS: HEMOGLOBIN 6.7 g/dL (11.5-16.0)
[2022-05-23 05:51] LABS: ALBUMIN 3.3 GM/DL (3.2-4.5); POTASSIUM 3.6 MMOL/L (3.6-5.0)
[2022-05-23 05:52] LABS: CALCIUM 8.5 MG/DL (8.5-10.1)
[2022-05-23 05:54] LABS: TOTAL PROTEIN 6.6 GM/DL (6.4-8.2)
[2022-05-23 05:55] LABS: BILIRUBIN,TOTAL 0.3 MG/DL (0.1-1.0)
[2022-05-23 05:57] LABS: CREATININE SERUM 0.69 MG/DL (0.60-1.30)
[2022-05-23] MEDS: POTASSIUM CL 10MEQ/50ML IVPB 50 ML IV SCH (06:10)
[2022-05-23] MEDS: KCL 20 MEQ TAB (K-DUR) PO SCH (06:10)
[2022-05-23] MEDS: LEVOTHYROXINE 25 MCG (LEVOTHROID) TAB PO SCH (06:26)
[2022-05-23] MEDS: MAGNESIUM 1 GM/100 ML IVPB 100 ML IV SCH (06:32)
[2022-05-23] MEDS ORDERED: KCL 20 MEQ TAB (K-DUR) PO ONE (08:00)
[2022-05-23] MEDS: NS IV 1000 ML 1,000 ML IV SCH ×4 (08:31→22:58)
[2022-05-23] MEDS: ISOSORBIDE MONONITRATE 30 MG (IMDUR) TAB PO SCH (08:32)
[2022-05-23] MEDS: OXYBUTYNIN (DITROPAN) 5 MG TAB PO SCH ×2 (08:32→21:01)
[2022-05-23] MEDS: fluCOnazole (DIFLUCAN) 100 MG TAB PO SCH (08:32)
[2022-05-23] MEDS: cefTRIAXone 1 GM IV (PRE-MIX) 50 ML IV SCH (08:33)
[2022-05-23] MEDS: FLUTICASONE NASAL SPRAY (FLONASE) 16 GM BTL NS SCH (08:33)
--- NOTE | 2022-05-23 11:41 | Physical Therapy Daily Note ---
PT Daily Note-Current Subjective Patient in bed pre tx, agrees to PT, has no complaints of pain at rest. Appearance Patient in bed post tx with nurse call, phone, tray, bed alarm on. Mental Status Patient Orientation: Person, Confused Attachments: Colostomy/Ileostomy, IV Transfers SCALE: Activities may be completed with or without assistive devices. 7-Epymskiode-jiqvpwl completes the activity by him/herself with no assistance from a helper. 5-Set-up or Clean-up Assistance-helper sets up or cleans up; patient completes activity. [place] assists only prior to or following the activity. 4-Supervision or Touching Assistance-helper provides verbal cues and/or touching/steadying and/or contact guard assistance as patient completes activity. Assistance may be provided throughout the activity or intermittently. 3-Partial/Moderate Assistance-helper does LESS THAN HALF the effort. [place] lifts, holds or supports trunk or limbs, but provides less than half the effort. 2-Substantial/Maximal Assistance-helper does MORE THAN HALF the effort. [place] lifts or holds trunk or limbs and provides more than half the effort. 1-Ldzomphqm-srueqe does ALL the effort. Patient does none of the effort to complete the activity. Or, the assistance of 2 or more helpers is required for the patient to complete the activity. If activity was not attempted, code reason: 7-Patient Refused. 9-Not Applicable-not attempted and the patient did not perform the activity before the current illness, exacerbation or injury. 10-Not Attempted due to Environmental Limitations-(lack of equipment, weather restraints, etc.). 88-Not Attempted due to Medical Conditions or Safety Concerns. Roll Left & Right (QC): 3 Sit to Lying (QC): 1 Lying to Sitting/Side of Bed(Q: 1 Sit to Stand (QC): 2 Patient needed assist of 2 for supine to sit, patient could maintain her sitting balance without assist, then max assist to stand and then she could take several sidesteps to the head of the bed, she had steadily increasing retropulsion after standing, sat back down and needed assist to keep from sliding off the bed because she wouldn't lean forward, assist of 2 to lay back down and scoot up. Exercises Supine Ex: Ankle pumps, Quad Set, Heel Slides Supine Reps: 10 Treatments standing, bed mobility, LE exercise Assessment Current Status: Poor Progress patient was able to take a few small steps today PT [employer] Goals [employer] Goals PT [employer] Goals Time Frame: Jun 09, 2022 Roll Left & Right (QC): 3 Sit to Lying (QC): 3 Lying-Sitting on Side/Bed(QC): 3 Sit to Stand (QC): 2 Chair/Der-fb-Dpsdv Xfer(QC): 2 Walk 10 feet (QC): 2 PT Plan Problem List Problem List: Activity Tolerance, Functional Strength, Safety, Balance, Gait, Transfer, Bed Mobility, ROM Treatment/Plan Treatment Plan: Continue Plan of Care Treatment Plan: Bed Mobility, Education, Functional Activity Jennifer, Functional Strength, Gait, Safety, Therapeutic Exercise, Transfers Treatment Duration: Jun 09, 2022 Frequency: 6 times per week Estimated Hrs Per Day: .25 hour per day Safety Risks/Education Patient Education: Gait Training, Transfer Techniques, Correct Positioning, Safety Issues Teaching Recipient: Patient Teaching Methods: Demonstration, Discussion Response to Teaching: Reinforcement Needed Time/GCodes Time In: 1106 Time Out: 1117 Total Billed Treatment Time: 11 Total Billed Treatment 1 visit FA CRISTINA AUGUST PT May 23, 2022 11:40
--- NOTE | 2022-05-23 11:50 | Progress Note - Hospitalist ---
Subjective HPI/CC On Admission Date Seen by Provider: May 23, 2022 Sarah Morales is an 82 year old female well known from previous admissions who presented with unresponsiveness. She is unable to provide any history. She lives at [facility]. She was in the [place] ER a couple days ago and reportedly had a negative urine culture. In the ER, her UA is consistent with recurrent UTI. She had too numerous to count WBCs and large bacteria. The urine in her catheter appears concentrated and purulent. She was opening her eyes on my exam and was following commands by squeezing fingers. Subjective/Events-last exam Pt reports feeling better. Discussed hgb but she is unsure if she would like a transfusion. Offered to call her sister to discuss but she declined. Focused Exam Lactate Level 05/20/22 12:44: Lactic Acid Level 0.57 Time of Focused Exam: 10:41 Objective Exam Vital Signs Vital Signs Date Time Temp Pulse Resp B/P (MAP) Pulse Ox O2 Delivery O2 Flow Rate FiO2 05/23/22 11:24 37.1 90 18 156/72 (100) 97 Room Air 05/23/22 08:00 0.00 05/20/22 12:10 30 Capillary Refill : Less Than 3 Seconds General Appearance: No Apparent Distress, Chronically ill, Thin Respiratory: Lungs Clear, No Respiratory Distress Cardiovascular: Regular Rate, Rhythm, No Murmur Results/Procedures Lab Laboratory Tests 05/23/22 05:23 Patient resulted labs reviewed. Imaging: Reviewed Imaging Films, Reviewed Imaging Report Assessment/Plan Assessment and Plan Assess & Plan/Chief Complaint Severe sepsis UTI UA consistent with UTI Urine culture with yeast and GNR Blood cultures NGTD Continue Rocephin and Diflucan Leukocytosis down further today Anemia- acute on chronic (from acute blood loss) baseline appears to be around 9 Down to 6.7 this AM Recommend transfusion but patient unsure Acute respiratory failure with hypercapnia- resolved On room air, doing well HTN T2DM CAD s/p CABG HFpEF COPD Hypothyroidism Continue home meds DVT prophylaxis: Hold Lovenox Critical Care Critically Ill Patient ALICIA MORGAN MD May 23, 2022 11:50
[2022-05-23] MEDS: HYDROcodone/APAP 5 MG/325 MG (LORTAB) TAB PO PRN ×2 (16:10→21:09)
[2022-05-23] MEDS: SENNA W/DOCUSATE (SENOKOT S) TABLET PO SCH (17:34)
[2022-05-23] MEDS: SERTRALINE 50 MG (ZOLOFT) TABLET PO SCH (17:34)
[2022-05-23] MEDS: traZODone 100 MG (DESYREL) TAB PO SCH (17:34)
[2022-05-24 03:41] VITALS: BP 143/73
[2022-05-24] MEDS: NS IV 1000 ML 1,000 ML IV SCH (05:48)
[2022-05-24] MEDS: inSUlin ASPART (NovoLOG) 1 UNIT/0.01 ML (CHARGE PER UNIT) SC SCH ×4 (05:50→20:06)
[2022-05-24] MEDS: LEVOTHYROXINE 25 MCG (LEVOTHROID) TAB PO SCH (06:10)
[2022-05-24 06:21] LABS: BASOPHILS # (AUTO) 0.1 10^3/uL (0.0-0.1); BASOPHILS % (AUTO) 1 % (0-10); EOSINOPHILS % (AUTO) 0 % (0-10); HEMATOCRIT 23 % (35-52); LYMPHOCYTES # (AUTO) 3.3 10^3/uL (1.0-4.0); LYMPHOCYTES % (AUTO) 18 % (12-44); MEAN CORPUSCULAR HEMOGLOBIN 28 pg (25-34); MEAN CORPUSCULAR HGB CONC 30 g/dL (32-36); MEAN CORPUSCULAR VOLUME 92 fL (80-99); MONOCYTES % (AUTO) 5 % (0-12); NEUTROPHILS # (AUTO) 13.6 10^3/uL (1.8-7.8); NEUTROPHILS % (AUTO) 74 % (42-75); PLATELET COUNT 450 10^3/uL (130-400); WHITE BLOOD COUNT 18.5 10^3/uL (4.3-11.0)
[2022-05-24 06:23] LABS: HEMOGLOBIN 6.9 g/dL (11.5-16.0)
[2022-05-24 06:41] LABS: ALBUMIN 3.4 GM/DL (3.2-4.5); POTASSIUM 4.1 MMOL/L (3.6-5.0)
[2022-05-24 06:42] LABS: CALCIUM 8.3 MG/DL (8.5-10.1)
[2022-05-24 06:44] LABS: TOTAL PROTEIN 6.6 GM/DL (6.4-8.2)
[2022-05-24 06:45] LABS: BILIRUBIN,TOTAL 0.2 MG/DL (0.1-1.0)
[2022-05-24 06:47] LABS: CREATININE SERUM 0.76 MG/DL (0.60-1.30)
[2022-05-24] MEDS: POTASSIUM CL 10MEQ/50ML IVPB 50 ML IV SCH (06:49)
[2022-05-24] MEDS: KCL 20 MEQ TAB (K-DUR) PO SCH (06:50)
[2022-05-24] MEDS: MAGNESIUM 1 GM/100 ML IVPB 100 ML IV SCH ×3 (07:33→08:50)
[2022-05-24 08:14] VITALS: BP 149/69
[2022-05-24] MEDS: ISOSORBIDE MONONITRATE 30 MG (IMDUR) TAB PO SCH (08:51)
[2022-05-24] MEDS: fluCOnazole (DIFLUCAN) 100 MG TAB PO SCH (08:51)
[2022-05-24] MEDS: FLUTICASONE NASAL SPRAY (FLONASE) 16 GM BTL NS SCH (08:51)
[2022-05-24] MEDS: OXYBUTYNIN (DITROPAN) 5 MG TAB PO SCH ×2 (08:51→21:12)
[2022-05-24] MEDS: cefTRIAXone 1 GM IV (PRE-MIX) 50 ML IV SCH (09:44)
--- NOTE | 2022-05-24 10:40 | Physical Therapy Daily Note ---
PT Daily Note-Current Subjective Patient agrees to PT. Mental Status Patient Orientation: Person, Time Attachments: Colostomy/Ileostomy, IV Transfers SCALE: Activities may be completed with or without assistive devices. 4-Bbemkdsvci-qhaeqxv completes the activity by him/herself with no assistance from a helper. 5-Set-up or Clean-up Assistance-helper sets up or cleans up; patient completes activity. [place] assists only prior to or following the activity. 4-Supervision or Touching Assistance-helper provides verbal cues and/or touching/steadying and/or contact guard assistance as patient completes activity. Assistance may be provided throughout the activity or intermittently. 3-Partial/Moderate Assistance-helper does LESS THAN HALF the effort. [place] li fts, holds or supports trunk or limbs, but provides less than half the effort. 2-Substantial/Maximal Assistance-helper does MORE THAN HALF the effort. [place] lifts or holds trunk or limbs and provides more than half the effort. 3-Uzxhftmrd-ifalqz does ALL the effort. Patient does none of the effort to complete the activity. Or, the assistance of 2 or more helpers is required for the patient to complete the activity. If activity was not attempted, code reason: 7-Patient Refused. 9-Not Applicable-not attempted and the patient did not perform the activity before the current illness, exacerbation or injury. 10-Not Attempted due to Environmental Limitations-(lack of equipment, weather restraints, etc.). 88-Not Attempted due to Medical Conditions or Safety Concerns. Lying to Sitting/Side of Bed(Q: 4 Sit to Stand (QC): 2 Chair/Gda-qe-Jjsxc Xfer(QC): 2 patient is retropulsive with sit to stand and transfer to recliner with patient taking a few steps to assist Exercises Seated Therapy Exercises: Ankle pumps, Long arc quads Seated Reps: 15 Assessment Patient up in recliner with needs met. Patient tolerates minimal activity. Education with patient on use of call light and utilizing this for assistance. Patient voices understanding. PT [employer] Goals Assisted Goals PT [employer] Goals Time Frame: Jun 09, 2022 Roll Left & Right (QC): 3 Sit to Lying (QC): 3 Lying-Sitting on Side/Bed(QC): 3 Sit to Stand (QC): 2 Chair/Ejb-cu-Aozqz Xfer(QC): 2 Walk 10 feet (QC): 2 PT Plan Treatment/Plan Treatment Plan: Continue Plan of Care Treatment Plan: Bed Mobility, Education, Functional Activity Jennifer, Functional Strength, Gait, Safety, Therapeutic Exercise, Transfers Treatment Duration: Jun 09, 2022 Frequency: 6 times per week Estimated Hrs Per Day: .25 hour per day Time/GCodes Time In: 950 Time Out: 1000 Total Billed Treatment Time: 10 Total Billed Treatment 1 visit FA 10 min HAMMAD BROWN PT May 24, 2022 10:40
[2022-05-24 11:40] VITALS: BP 141/63
[2022-05-24] MEDS ORDERED: CFTR1V IM (12:37)
[2022-05-24] MEDS ORDERED: FLUC100T10 PO (12:37)
--- NOTE | 2022-05-24 14:26 | Progress Note - Hospitalist ---
Subjective HPI/CC On Admission Date Seen by Provider: May 24, 2022 Sarah Morales is an 82 year old female well known from previous admissions who presented with unresponsiveness. She is unable to provide any history. She lives at [facility]. She was in the [place] ER a couple days ago and reportedly had a negative urine culture. In the ER, her UA is consistent with recurrent UTI. She had too numerous to count WBCs and large bacteria. The urine in her catheter appears concentrated and purulent. She was opening her eyes on my exam and was following commands by squeezing fingers. Subjective/Events-last exam Pt sitting up in chair. FABI Hidalgo/RN at bedside. Patient has no complaints. Discussed recommendation for blood transfusion again and she is hesitantt to agree. She does agree to me calling her sister to discuss. I did discuss with her sister Kristy who states she would only agree to transfusion if Pat wanted it . We ultimately decided that as it came up slightly we can check in the morning and have her PCP follow this more closely. Focused Exam Time of Focused Exam: 10:41 Objective Exam Vital Signs Vital Signs Date Time Temp Pulse Resp B/P (MAP) Pulse Ox O2 Delivery O2 Flow Rate FiO2 05/24/22 11:40 36.4 90 18 141/63 (89) 96 Room Air 05/24/22 08:00 0.00 05/20/22 12:10 30 Capillary Refill : Less Than 3 Seconds General Appearance: No Apparent Distress, Chronically ill, Thin Respiratory: Lungs Clear, No Respiratory Distress Cardiovascular: Regular Rate, Rhythm, No Murmur Results/Procedures Lab Laboratory Tests 05/24/22 06:00 Patient resulted labs reviewed. Imaging: Reviewed Imaging Films, Reviewed Imaging Report Assessment/Plan Assessment and Plan Assess & Plan/Chief Complaint Severe sepsis UTI UA consistent with UTI Urine culture with yeast and GNR (likely klebsiella) Blood cultures NGTD Continue Rocephin and Diflucan Will continue IV abx given her quick bounceback with oral abx Anemia- acute on chronic (from acute blood loss) baseline appears to be around 9 Hgb 6.9 today Recommend transfusion but patient unsure as is sister as above Acute respiratory failure with hypercapnia- resolved On room air, doing well HTN T2DM CAD s/p CABG HFpEF COPD Hypothyroidism Continue home meds DVT prophylaxis: Hold Lovenox Critical Care Critically Ill Patient ALICIA MORGAN MD May 24, 2022 14:26
[2022-05-24 16:00] VITALS: BP 147/65
[2022-05-24] MEDS: SENNA W/DOCUSATE (SENOKOT S) TABLET PO SCH (17:49)
[2022-05-24] MEDS: SERTRALINE 50 MG (ZOLOFT) TABLET PO SCH (17:49)
[2022-05-24] MEDS: traZODone 100 MG (DESYREL) TAB PO SCH (17:49)
[2022-05-24 19:59] VITALS: BP 161/64
[2022-05-24] MEDS: hydrALAZINE (APESOLINE) 20 MG/ML VIAL IV PRN (23:45)
[2022-05-24 23:52] VITALS: BP 176/78
[2022-05-25] VITALS (7 sets, daily range): BP systolic 144–185; BP diastolic 64–81
[2022-05-25 04:48] LABS: BASOPHILS # (AUTO) 0.1 10^3/uL (0.0-0.1); BASOPHILS % (AUTO) 0 % (0-10); EOSINOPHILS # (AUTO) 0.1 10^3/uL (0.0-0.3); EOSINOPHILS % (AUTO) 1 % (0-10); HEMATOCRIT 22 % (35-52); LYMPHOCYTES # (AUTO) 3.9 10^3/uL (1.0-4.0); LYMPHOCYTES % (AUTO) 22 % (12-44); MEAN CORPUSCULAR HEMOGLOBIN 27 pg (25-34); MEAN CORPUSCULAR HGB CONC 30 g/dL (32-36); MEAN CORPUSCULAR VOLUME 90 fL (80-99); MONOCYTES # (AUTO) 1.1 10^3/uL (0.0-1.0); MONOCYTES % (AUTO) 6 % (0-12); NEUTROPHILS # (AUTO) 12.5 10^3/uL (1.8-7.8); NEUTROPHILS % (AUTO) 70 % (42-75); PLATELET COUNT 471 10^3/uL (130-400)
[2022-05-25 04:57] LABS: HEMOGLOBIN 6.7 g/dL (11.5-16.0)
[2022-05-25 04:59] LABS: ALBUMIN 3.4 GM/DL (3.2-4.5)
[2022-05-25 05:00] LABS: CALCIUM 8.6 MG/DL (8.5-10.1)
[2022-05-25 05:02] LABS: TOTAL PROTEIN 6.4 GM/DL (6.4-8.2)
[2022-05-25 05:03] LABS: BILIRUBIN,TOTAL 0.2 MG/DL (0.1-1.0)
[2022-05-25 05:05] LABS: CREATININE SERUM 0.81 MG/DL (0.60-1.30)
[2022-05-25] MEDS: inSUlin ASPART (NovoLOG) 1 UNIT/0.01 ML (CHARGE PER UNIT) SC SCH ×3 (05:06→16:05)
[2022-05-25] MEDS: POTASSIUM CL 10MEQ/50ML IVPB 50 ML IV SCH (05:07)
[2022-05-25] MEDS: KCL 20 MEQ TAB (K-DUR) PO SCH (05:07)
[2022-05-25 05:08] LABS: MAGNESIUM 1.9 MG/DL (1.6-2.4)
[2022-05-25] MEDS: MAGNESIUM 1 GM/100 ML IVPB 100 ML IV SCH (05:09)
[2022-05-25] MEDS: LEVOTHYROXINE 25 MCG (LEVOTHROID) TAB PO SCH (05:36)
[2022-05-25] MEDS ORDERED: NS IV 500 ML 500 ML IV SCH ×2 (09:30)
[2022-05-25] MEDS: ISOSORBIDE MONONITRATE 30 MG (IMDUR) TAB PO SCH (09:58)
[2022-05-25] MEDS: fluCOnazole (DIFLUCAN) 100 MG TAB PO SCH (09:58)
[2022-05-25] MEDS: cefTRIAXone 1 GM IV (PRE-MIX) 50 ML IV SCH (09:58)
[2022-05-25] MEDS: OXYBUTYNIN (DITROPAN) 5 MG TAB PO SCH (09:58)
[2022-05-25] MEDS: FLUTICASONE NASAL SPRAY (FLONASE) 16 GM BTL NS SCH (09:59)
--- NOTE | 2022-05-25 10:05 | Discharge Inst-Skilled Nursing ---
Discharge Inst-Skilled NF Chief Complaint Sarah Morales is an 82 year old female well known from previous admissions who presented with unresponsiveness. She is unable to provide any history. She lives at [facility]. She was in the [place] ER a couple days ago and reportedly had a negative urine culture. In the ER, her UA is consistent with recurrent UTI. She had too numerous to count WBCs and large bacteria. The urine in her catheter appears concentrated and purulent. She was opening her eyes on my exam and was following commands by squeezing fingers. Consult/Follow Up/Orders Skilled NF Admit to: [facility] Certification (SNF) I certify that SNF services are required to be given on an inpatient basis because of the above named patient's need for [place] [facility] care on a jeremy nuing basis for the conditions(s) for which he/she was receiving inpatient hospital services prior to his/her transfer to the SNF. Jail Facility Order: Nursing Services, Senior Business Development Manager-Evaluate & Treat, Physical Therapy-Evaluate & Treat, Wound Care-Eval/Treat Oxygen Delivery Method: Room Air Discharge Diet: Soft Diet Daily Activity as Tolerated: Yes Resuscitation Status: Do Not Resuscitate New & Resume Previous Orders Jaclyn Morgan May 25, 2022 10:04 JACLYN MORGAN MD May 25, 2022 10:05
== END 2022-05-25 16:22 | DRG 871 ==
LOC: EDUNIT# 09:08 → ER 09:09 → ICU 10:30 → 4TH 05-22 11:29
PROVIDERS: ADMIT Internal Medicine; ATTEND Internal Medicine
PROC: 02HV33Z Insertion of Infusion Device into Superior Vena Cava, Percutaneous Approach (ICD-10-PCS; principal; 2022-05-20)
DX: A41.02 Sepsis due to Methicillin resistant Staphylococcus aureus (principal); G93.41 Metabolic encephalopathy; J96.01 Acute respiratory failure with hypoxia; J96.02 Acute respiratory failure with hypercapnia; N17.9 Acute kidney failure, unspecified; N39.0 Urinary tract infection, site not specified; I50.32 Chronic diastolic (congestive) heart failure; I13.0 Hypertensive heart and chronic kidney disease with heart failure and stage 1 through stage 4 chronic kidney disease, or unspecified chronic kidney disease; D62 Acute posthemorrhagic anemia; I95.9 Hypotension, unspecified; E86.1 Hypovolemia; E11.9 Type 2 diabetes mellitus without complications; Z86.16 Personal history of COVID-19; F41.9 Anxiety disorder, unspecified; G47.00 Insomnia, unspecified; G25.81 Restless legs syndrome; Z95.1 Presence of aortocoronary bypass graft; J44.9 Chronic obstructive pulmonary disease, unspecified; I25.10 Atherosclerotic heart disease of native coronary artery without angina pectoris; I25.2 Old myocardial infarction; K57.90 Diverticulosis of intestine, part unspecified, without perforation or abscess without bleeding; M19.90 Unspecified osteoarthritis, unspecified site; F32.A Depression, unspecified; R65.20 Severe sepsis without septic shock; E03.9 Hypothyroidism, unspecified; N18.9 Chronic kidney disease, unspecified; I87.2 Venous insufficiency (chronic) (peripheral); Z79.82 Long term (current) use of aspirin; Z79.899 Other long term (current) drug therapy
CPT/HCPCS: 36410; 36415; 70450; 71045; 76937; 80053; 81000; 82274; 82805; 82947; 83605; 83735; 84100; 84145; 84439; 84443; 85007; 85025; 85027; 85610; 85730; 86141; 86850; 86900; 86901; 86920; 87040; 87081; 87088; 93005; 93041; 94640; 96361; 96365; 99291